=== PATIENT | male | born 1960 | race Caucasian/White ===

== ENCOUNTER → 2016-11-04 | Outpatient (CLI) | payer OTHER ==
[2016-11-04 12:27] LABS: ALT 37 U/L (21-72); AST 18 U/L (17-59); Alkaline Phosphatase 107 U/L (38-126); Anion Gap 11 mmol/L; Blood Urea Nitrogen 17 mg/dL (9-20); Calcium 9.6 mg/dL (8.4-10.2); Carbon Dioxide 27 mmol/L (22-30); Chloride 104 mmol/L (98-107); Glucose 101 mg/dL (74-99); Magnesium 1.9 mg/dL (1.6-2.3); Non-African American GFR(MDRD) >60 (>60 ml/min/1.73 sqM); Phosphorous 3.2 mg/dL (2.5-4.5); Potassium 4.2 mmol/L (3.5-5.1); Sodium 142 mmol/L (137-145); Total Bilirubin 0.4 mg/dL (0.2-1.3); Total Protein 7.1 g/dL (6.3-8.2); Uric Acid 6.6 mg/dL (3.5-8.5)
[2016-11-04 12:41] LABS: Appearance,Urine Cloudy (Clear); Bilirubin,Urine Negative (Negative); Glucose,Urine (UA) Negative (Negative); Ketones,Urine Negative (Negative); Leukocyte Esterase,Urine Negative (Negative); Mucus,Urine Rare /hpf; Nitrite,Urine Negative (Negative); Particle Count 3047; Protein,Urine Trace (Negative); RBC,Urine 51 /hpf (0-5); Specific Gravity,Urine 1.015 (1.001-1.035); Squamous Epithelial Cell,Urine <1 /hpf (0-4); UA Billing (MACRO vs. MICRO) MICRO; Urobilinogen,Urine <2.0 mg/dL (<2.0)
[2016-11-05 10:26] LABS: Mis test requested (Non-blood) TP Urine Random
== END | disposition home or self-care (01) ==
LOC: LABWHC1 11:34
PROVIDERS: ATTEND Internal Medicine Nephrology
DX: M32.9 Systemic lupus erythematosus, unspecified (principal); E21.3 Hyperparathyroidism, unspecified; E55.9 Vitamin D deficiency, unspecified; M10.9 Gout, unspecified
CPT/HCPCS: 36415; 80053; 81001; 82306; 83735; 83970; 84100; 84156; 84550; 87086

== ENCOUNTER → 2016-12-04 | Outpatient (CLI) | payer OTHER ==
[2016-12-04 12:04] LABS: ALT 24 U/L (21-72); AST 17 U/L (17-59); Alkaline Phosphatase 88 U/L (38-126); Anion Gap 10 mmol/L; Blood Urea Nitrogen 18 mg/dL (9-20); Calcium 9.6 mg/dL (8.4-10.2); Carbon Dioxide 29 mmol/L (22-30); Chloride 103 mmol/L (98-107); Glucose 168 mg/dL (74-99); Magnesium 1.8 mg/dL (1.6-2.3); Non-African American GFR(MDRD) >60 (>60 ml/min/1.73 sqM); Phosphorous 3.2 mg/dL (2.5-4.5); Potassium 4.4 mmol/L (3.5-5.1); Sodium 142 mmol/L (137-145); Total Bilirubin 0.7 mg/dL (0.2-1.3); Total Protein 6.8 g/dL (6.3-8.2)
[2016-12-04 12:38] LABS: Appearance,Urine Clear (Clear); Bilirubin,Urine Negative (Negative); Glucose,Urine (UA) Negative (Negative); Ketones,Urine Negative (Negative); Leukocyte Esterase,Urine Negative (Negative); Mucus,Urine Rare /hpf; Nitrite,Urine Negative (Negative); Particle Count 887; Protein,Urine Negative (Negative); RBC,Urine 33 /hpf (0-5); Specific Gravity,Urine 1.008 (1.001-1.035); UA Billing (MACRO vs. MICRO) MICRO; Urobilinogen,Urine <2.0 mg/dL (<2.0); WBC,Urine 1 /hpf (0-5)
[2016-12-04 13:14] LABS: Creatinine,Urine Random 43.8 mg/dL
== END | disposition home or self-care (01) ==
LOC: LABWHC1 11:12
PROVIDERS: ATTEND Internal Medicine Nephrology
DX: M32.9 Systemic lupus erythematosus, unspecified (principal); N39.0 Urinary tract infection, site not specified; R80.9 Proteinuria, unspecified; E21.3 Hyperparathyroidism, unspecified; E55.9 Vitamin D deficiency, unspecified; M10.9 Gout, unspecified
CPT/HCPCS: 36415; 80053; 81001; 82306; 82570; 83735; 83970; 84100; 84156; 84550

== ENCOUNTER → 2017-01-04 | Outpatient (CLI) | payer OTHER ==
[2017-01-04 13:20] LABS: CH 31.3; CHCM 32.3; HCT 38.4 % (39.0-53.0); HDW 2.92; HGB 12.5 gm/dL (13.0-17.5); MCH 31.8 pg (25.0-35.0); MCHC 32.6 g/dL (31.0-37.0); MCV 97.5 fL (80.0-100.0); Mean Platelet Volume 6.9; RBC 3.93 m/uL (4.30-5.90); RDW 14.4 % (11.5-15.5); WBC 15.8 k/uL (3.8-10.6)
[2017-01-04 13:24] LABS: Appearance,Urine Clear (Clear); Bacteria,Urine Rare /hpf; Bilirubin,Urine Negative (Negative); Glucose,Urine (UA) Negative (Negative); Ketones,Urine Negative (Negative); Leukocyte Esterase,Urine Negative (Negative); Mucus,Urine Rare /hpf; Nitrite,Urine Negative (Negative); PH, Urine 5.5 (5.0-8.0); Particle Count 1424; Protein,Urine Negative (Negative); RBC,Urine 63 /hpf (0-5); UA Billing (MACRO vs. MICRO) MICRO; Urobilinogen,Urine <2.0 mg/dL (<2.0); WBC,Urine 1 /hpf (0-5)
[2017-01-04 13:34] LABS: ALT 29 U/L (21-72); AST 20 U/L (17-59); Alkaline Phosphatase 105 U/L (38-126); Anion Gap 10 mmol/L; Blood Urea Nitrogen 18 mg/dL (9-20); Calcium 9.8 mg/dL (8.4-10.2); Carbon Dioxide 29 mmol/L (22-30); Chloride 102 mmol/L (98-107); Glucose 110 mg/dL (74-99); Non-African American GFR(MDRD) >60 (>60 ml/min/1.73 sqM); Potassium 4.4 mmol/L (3.5-5.1); Sodium 141 mmol/L (137-145); Total Bilirubin 0.4 mg/dL (0.2-1.3); Total Protein 7.2 g/dL (6.3-8.2)
[2017-01-04 14:21] LABS: Creatinine,Urine Random 68.3 mg/dL
== END | disposition home or self-care (01) ==
LOC: LABWHC1 12:21
PROVIDERS: ATTEND Internal Medicine
DX: M32.9 Systemic lupus erythematosus, unspecified (principal); N39.0 Urinary tract infection, site not specified; D64.9 Anemia, unspecified; R80.9 Proteinuria, unspecified
CPT/HCPCS: 36415; 80053; 81001; 82570; 84156; 85027

== ENCOUNTER → 2017-02-05 | Outpatient (CLI) | payer OTHER ==
[2017-02-05 09:55] LABS: Basophils % (A) 0 %; CH 30.8; CHCM 32.2; Eosinophils # (A) 0.3 k/uL (0-0.7); Eosinophils % (A) 3 %; HGB 12.2 gm/dL (13.0-17.5); Luc % (Auto) 1; Lymphocytes # (A) 2.2 k/uL (1.0-4.8); Lymphocytes % (A) 25 %; MCH 30.2 pg (25.0-35.0); MCHC 31.4 g/dL (31.0-37.0); MCV 96.2 fL (80.0-100.0); Mean Platelet Volume 7.3; Monocytes # (A) 0.4 k/uL (0-1.0); Monocytes % (A) 5 %; Neutrophils # (A) 5.9 k/uL (1.3-7.7); Neutrophils % (A) 66 %; RBC 4.05 m/uL (4.30-5.90); RDW 13.5 % (11.5-15.5); WBC 8.8 k/uL (3.8-10.6)
[2017-02-05 10:16] LABS: Appearance,Urine Clear (Clear); Bacteria,Urine Rare /hpf; Bilirubin,Urine Negative (Negative); Glucose,Urine (UA) Negative (Negative); Ketones,Urine Negative (Negative); Leukocyte Esterase,Urine Negative (Negative); Nitrite,Urine Negative (Negative); PH, Urine 5.5 (5.0-8.0); Particle Count 1400; Protein,Urine Negative (Negative); RBC,Urine 34 /hpf (0-5); Specific Gravity,Urine 1.011 (1.001-1.035); UA Billing (MACRO vs. MICRO) MICRO; Urobilinogen,Urine <2.0 mg/dL (<2.0); WBC,Urine 1 /hpf (0-5)
[2017-02-05 10:31] LABS: ALT 22 U/L (21-72); AST 17 U/L (17-59); Alkaline Phosphatase 118 U/L (38-126); Anion Gap 8 mmol/L; Blood Urea Nitrogen 15 mg/dL (9-20); Calcium 9.1 mg/dL (8.4-10.2); Carbon Dioxide 31 mmol/L (22-30); Chloride 104 mmol/L (98-107); Glucose 112 mg/dL (74-99); Magnesium 1.9 mg/dL (1.6-2.3); Non-African American GFR(MDRD) >60 (>60 ml/min/1.73 sqM); Phosphorous 3.9 mg/dL (2.5-4.5); Potassium 3.7 mmol/L (3.5-5.1); Sodium 143 mmol/L (137-145); Total Bilirubin 0.3 mg/dL (0.2-1.3); Total Protein 6.6 g/dL (6.3-8.2)
[2017-02-05 11:36] LABS: Creatinine,Urine Random 83.9 mg/dL
== END | disposition home or self-care (01) ==
LOC: LABWHC1 09:06
PROVIDERS: ATTEND Internal Medicine
DX: M32.9 Systemic lupus erythematosus, unspecified (principal); N39.0 Urinary tract infection, site not specified; D64.9 Anemia, unspecified; R80.9 Proteinuria, unspecified; E21.3 Hyperparathyroidism, unspecified; E55.9 Vitamin D deficiency, unspecified; M10.9 Gout, unspecified
CPT/HCPCS: 36415; 80053; 81001; 82306; 82570; 83735; 83970; 84100; 84156; 84550; 85025

== ENCOUNTER → 2017-03-04 | Outpatient (CLI) | payer OTHER ==
[2017-03-04 12:00] LABS: CH 30.5; CHCM 32.3; HDW 2.78; HGB 13.3 gm/dL (13.0-17.5); MCHC 31.6 g/dL (31.0-37.0); MCV 94.9 fL (80.0-100.0); Mean Platelet Volume 7.5; RBC 4.42 m/uL (4.30-5.90); RDW 13.4 % (11.5-15.5); WBC 10.4 k/uL (3.8-10.6)
[2017-03-04 12:05] LABS: ALT 30 U/L (21-72); AST 19 U/L (17-59); Alkaline Phosphatase 127 U/L (38-126); Anion Gap 6 mmol/L; Blood Urea Nitrogen 13 mg/dL (9-20); Calcium 9.4 mg/dL (8.4-10.2); Carbon Dioxide 36 mmol/L (22-30); Chloride 104 mmol/L (98-107); Glucose 133 mg/dL (74-99); Iron 89 ug/dL (49-181); Magnesium 2.2 mg/dL (1.6-2.3); Non-African American GFR(MDRD) >60 (>60 ml/min/1.73 sqM); Potassium 3.7 mmol/L (3.5-5.1); Sodium 146 mmol/L (137-145); Total Bilirubin 0.3 mg/dL (0.2-1.3); Total Protein 6.5 g/dL (6.3-8.2); Uric Acid 7.1 mg/dL (3.5-8.5)
[2017-03-04 12:14] LABS: % Iron Saturation 32.7 % (20-50); Total Iron Binding Capacity 272 ug/dL (261-462)
[2017-03-04 12:26] LABS: Appearance,Urine Clear (Clear); Bilirubin,Urine Negative (Negative); Glucose,Urine (UA) Negative (Negative); Ketones,Urine Negative (Negative); Leukocyte Esterase,Urine Negative (Negative); Nitrite,Urine Negative (Negative); Particle Count 1271; Protein,Urine Trace (Negative); RBC,Urine 27 /hpf (0-5); Specific Gravity,Urine 1.012 (1.001-1.035); UA Billing (MACRO vs. MICRO) MICRO; Urobilinogen,Urine <2.0 mg/dL (<2.0); WBC,Urine 1 /hpf (0-5)
[2017-03-04 13:40] LABS: Creatinine,Urine Random 95.8 mg/dL
== END | disposition home or self-care (01) ==
LOC: LABWHC1 11:28
PROVIDERS: ATTEND Internal Medicine
DX: M32.9 Systemic lupus erythematosus, unspecified (principal); D64.9 Anemia, unspecified; N39.0 Urinary tract infection, site not specified; R80.9 Proteinuria, unspecified; E21.3 Hyperparathyroidism, unspecified; E55.9 Vitamin D deficiency, unspecified; M10.9 Gout, unspecified
CPT/HCPCS: 36415; 80053; 81001; 82306; 82570; 82728; 83540; 83550; 83735; 83970; 84100; 84156; 84550; 85027

== ENCOUNTER → 2017-04-23 | Outpatient (CLI) | payer OTHER ==
--- NOTE | 2017-04-23 12:14 | XR ---
EXAMINATION TYPE: XR foot complete bilateral , 6 VIEWS DATE OF EXAM ORDERED: 04/23/2017 HISTORY: M79.672 l foot pain M79.671 R foot pain. COMPARISON: None. FINDINGS: There are mild degenerative changes in the first MTP joint bilaterally. No fracture or dis location is seen. There is a minimal Achilles spur on the right. IMPRESSION: 1. NO ACUTE OSSEOUS LESION. 2. MILD DEGENERATIVE CHANGE.
== END | disposition home or self-care (01) ==
LOC: RADXRMAIN 11:49
PROVIDERS: ATTEND Family Medicine
DX: M25.871 Other specified joint disorders, right ankle and foot (principal); M25.872 Other specified joint disorders, left ankle and foot; M79.672 Pain in left foot; M79.671 Pain in right foot

== ENCOUNTER → 2017-04-23 | Outpatient (CLI) | payer OTHER ==
[2017-04-23 13:27] LABS: Appearance,Urine Clear (Clear); Bilirubin,Urine Negative (Negative); CH 30.1; CHCM 33.1; Glucose,Urine (UA) Negative (Negative); HCT 38.3 % (39.0-53.0); HDW 2.75; HGB 12.9 gm/dL (13.0-17.5); Ketones,Urine Negative (Negative); Leukocyte Esterase,Urine Negative (Negative); MCH 30.7 pg (25.0-35.0); MCHC 33.6 g/dL (31.0-37.0); MCV 91.2 fL (80.0-100.0); Mean Platelet Volume 7.4; Mucus,Urine Rare /hpf; Nitrite,Urine Negative (Negative); PH, Urine 5.5 (5.0-8.0); Particle Count 2006; Protein,Urine Trace (Negative); RBC,Urine 57 /hpf (0-5); RDW 13.5 % (11.5-15.5); Specific Gravity,Urine 1.013 (1.001-1.035); UA Billing (MACRO vs. MICRO) MICRO; Urobilinogen,Urine <2.0 mg/dL (<2.0); WBC 9.8 k/uL (3.8-10.6); WBC,Urine 1 /hpf (0-5)
[2017-04-23 13:42] LABS: ALT 29 U/L (21-72); AST 21 U/L (17-59); Alkaline Phosphatase 138 U/L (38-126); Anion Gap 9 mmol/L; Blood Urea Nitrogen 11 mg/dL (9-20); Carbon Dioxide 29 mmol/L (22-30); Chloride 105 mmol/L (98-107); Glucose 128 mg/dL (74-99); Iron 119 ug/dL (49-181); Magnesium 2.1 mg/dL (1.6-2.3); Non-African American GFR(MDRD) >60 (>60 ml/min/1.73 sqM); Phosphorous 2.9 mg/dL (2.5-4.5); Potassium 3.4 mmol/L (3.5-5.1); Sodium 143 mmol/L (137-145); Total Bilirubin 0.4 mg/dL (0.2-1.3); Total Protein 6.3 g/dL (6.3-8.2)
[2017-04-23 13:54] LABS: % Iron Saturation 46.1 % (20-50); Total Iron Binding Capacity 258 ug/dL (261-462)
== END ==
LOC: LABWHC1 12:16
PROVIDERS: ATTEND Internal Medicine
DX: M32.9 Systemic lupus erythematosus, unspecified (principal); D64.9 Anemia, unspecified; N39.0 Urinary tract infection, site not specified; R80.9 Proteinuria, unspecified; E21.3 Hyperparathyroidism, unspecified; E55.9 Vitamin D deficiency, unspecified
CPT/HCPCS: 36415; 80053; 81001; 82306; 82570; 82728; 83540; 83550; 83735; 83970; 84100; 84156; 85027

== ENCOUNTER → 2017-07-10 | Outpatient (CLI) | payer OTHER ==
[2017-07-10 12:27] LABS: HCT 47.4 % (39.0-53.0); HDW 2.69; HGB 15.1 gm/dL (13.0-17.5); MCH 30.1 pg (25.0-35.0); MCHC 31.9 g/dL (31.0-37.0); MCV 94.5 fL (80.0-100.0); Mean Platelet Volume 7.9; RBC 5.02 m/uL (4.30-5.90); RDW 14.5 % (11.5-15.5)
[2017-07-10 12:45] LABS: Appearance,Urine Clear (Clear); Bacteria,Urine Rare /hpf; Bilirubin,Urine Negative (Negative); Glucose,Urine (UA) Negative (Negative); Ketones,Urine Negative (Negative); Leukocyte Esterase,Urine Negative (Negative); Mucus,Urine Rare /hpf; Nitrite,Urine Negative (Negative); Particle Count 1159; Protein,Urine Negative (Negative); RBC,Urine 4 /hpf (0-5); Specific Gravity,Urine 1.013 (1.001-1.035); Squamous Epithelial Cell,Urine <1 /hpf (0-4); UA Billing (MACRO vs. MICRO) MICRO; Urobilinogen,Urine <2.0 mg/dL (<2.0); WBC,Urine 1 /hpf (0-5)
[2017-07-10 12:52] LABS: ALT 31 U/L (21-72); AST 18 U/L (17-59); Alkaline Phosphatase 159 U/L (38-126); Anion Gap 10 mmol/L; Blood Urea Nitrogen 13 mg/dL (9-20); Calcium 9.7 mg/dL (8.4-10.2); Carbon Dioxide 30 mmol/L (22-30); Chloride 105 mmol/L (98-107); Glucose 127 mg/dL (74-99); Magnesium 2.2 mg/dL (1.6-2.3); Non-African American GFR(MDRD) >60 (>60 ml/min/1.73 sqM); Phosphorous 3.6 mg/dL (2.5-4.5); Potassium 4.6 mmol/L (3.5-5.1); Sodium 145 mmol/L (137-145); Total Bilirubin 0.3 mg/dL (0.2-1.3); Total Protein 7.1 g/dL (6.3-8.2); Uric Acid 6.5 mg/dL (3.5-8.5)
== END | disposition home or self-care (01) ==
LOC: LABWHC1 11:49
PROVIDERS: ATTEND Internal Medicine
DX: E55.9 Vitamin D deficiency, unspecified (principal); M10.9 Gout, unspecified; N39.0 Urinary tract infection, site not specified; E21.3 Hyperparathyroidism, unspecified; R80.9 Proteinuria, unspecified; D64.9 Anemia, unspecified; M32.9 Systemic lupus erythematosus, unspecified
CPT/HCPCS: 36415; 80053; 81001; 82306; 82570; 83735; 83970; 84100; 84156; 84550; 85027

== ENCOUNTER → 2017-08-06 | Outpatient (CLI) | payer OTHER ==
[2017-08-06 13:38] LABS: CH 29.4; CHCM 32.3; HCT 42.2 % (39.0-53.0); HDW 2.51; HGB 14.3 gm/dL (13.0-17.5); MCH 31.1 pg (25.0-35.0); MCV 91.5 fL (80.0-100.0); RBC 4.61 m/uL (4.30-5.90); WBC 10.1 k/uL (3.8-10.6)
[2017-08-06 13:55] LABS: Appearance,Urine Clear (Clear); Bacteria,Urine Rare /hpf; Bilirubin,Urine Negative (Negative); Glucose,Urine (UA) Negative (Negative); Ketones,Urine Negative (Negative); Leukocyte Esterase,Urine Negative (Negative); Nitrite,Urine Negative (Negative); Particle Count 837; Protein,Urine Negative (Negative); RBC,Urine 17 /hpf (0-5); Specific Gravity,Urine 1.014 (1.001-1.035); Squamous Epithelial Cell,Urine <1 /hpf (0-4); UA Billing (MACRO vs. MICRO) MICRO; Urobilinogen,Urine <2.0 mg/dL (<2.0); WBC,Urine <1 /hpf (0-5)
[2017-08-06 13:59] LABS: ALT 33 U/L (21-72); AST 18 U/L (17-59); Alkaline Phosphatase 137 U/L (38-126); Anion Gap 8 mmol/L; Blood Urea Nitrogen 11 mg/dL (9-20); Calcium 9.5 mg/dL (8.4-10.2); Carbon Dioxide 29 mmol/L (22-30); Chloride 107 mmol/L (98-107); Glucose 112 mg/dL (74-99); Non-African American GFR(MDRD) >60 (>60 ml/min/1.73 sqM); Phosphorus 3.8 mg/dL (2.5-4.5); Potassium 4.1 mmol/L (3.5-5.1); Sodium 144 mmol/L (137-145); Total Bilirubin 0.3 mg/dL (0.2-1.3); Total Protein 6.8 g/dL (6.3-8.2); Uric Acid 6.8 mg/dL (3.5-8.5)
== END | disposition home or self-care (01) ==
LOC: LABWHC1 13:07
PROVIDERS: ATTEND Internal Medicine
DX: E55.9 Vitamin D deficiency, unspecified (principal); M10.9 Gout, unspecified; E21.3 Hyperparathyroidism, unspecified; R80.9 Proteinuria, unspecified; N39.0 Urinary tract infection, site not specified; D64.9 Anemia, unspecified; M32.9 Systemic lupus erythematosus, unspecified
CPT/HCPCS: 36415; 80053; 81001; 82306; 82570; 83735; 83970; 84100; 84156; 84550; 85027

== ENCOUNTER → 2017-09-30 | Outpatient (CLI) | payer OTHER ==
[2017-09-30 11:56] LABS: HCT 48.2 % (39.0-53.0); MCH 29.7 pg (25.0-35.0); MCV 95.6 fL (80.0-100.0); Mean Platelet Volume 7.7; Platelet Count 215 k/uL (150-450); RBC 5.04 m/uL (4.30-5.90); RDW 15.4 % (11.5-15.5); WBC 13.4 k/uL (3.8-10.6)
[2017-09-30 12:06] LABS: Anion Gap 10 mmol/L; Blood Urea Nitrogen 12 mg/dL (9-20); Carbon Dioxide 31 mmol/L (22-30); Chloride 104 mmol/L (98-107); Potassium 5.1 mmol/L (3.5-5.1); Sodium 145 mmol/L (137-145)
== END | disposition home or self-care (01) ==
LOC: LABPAT 11:24
PROVIDERS: ATTEND Internal Medicine Interventional Cardiology
DX: Z01.812 Encounter for preprocedural laboratory examination (principal); I25.10 Atherosclerotic heart disease of native coronary artery without angina pectoris
CPT/HCPCS: 80051; 82565; 84520; 85027

== ENCOUNTER 2017-10-03 06:02 | Day surgery (SDC) | payer OTHER ==
[2017-10-02 16:31] VITALS: BMI 31.3
[2017-10-03] MEDS ORDERED: ALPRAZolam 0.25 MG TAB PO PRN (06:31)
[2017-10-03] MEDS ORDERED: ALPRAZolam 0.5 MG TAB PO PRN (06:31)
[2017-10-03] MEDS ORDERED: NITROGLYCERIN SL TABS 0.4 MG TAB SUBLINGUAL PRN (06:31)
[2017-10-03] MEDS ORDERED: ATORVASTATIN 80 MG TAB PO STA (06:31)
[2017-10-03] MEDS ORDERED: SODIUM CHLORIDE 0.9% 1,000 ML in EMPTY BAG 1 BAG IV ONE (06:31)
[2017-10-03] MEDS ORDERED: ASPIRIN 325 MG TAB PO STA (06:31)
[2017-10-03] MEDS ORDERED: SODIUM CHLORIDE 0.9% 1,000 ML IV ONE (07:14)
[2017-10-03] MEDS ORDERED: methylPREDNISolone SOD SUCCI 125 MG/2 ML VIAL IV ONE (07:42)
[2017-10-03] MEDS ORDERED: diphenhydrAMINE 50 MG/ML 1 ML VIAL IVP ONE (07:42)
[2017-10-03] MEDS ORDERED: fentaNYL (PF) 50 MCG/ML 2 ML AMP IV ONE (07:42)
[2017-10-03] MEDS ORDERED: LIDOCAINE 2% INJ 20 MG/ML SQ ONE (07:45)
[2017-10-03] MEDS: VERAPAMIL SYRINGE (5 MG/10 ML) INTRAARTER ONE ×2 (07:47→08:03)
[2017-10-03] MEDS ORDERED: MIDAZOLAM 2 MG/2 ML VIAL IVP ONE (07:47)
[2017-10-03] MEDS ORDERED: HEPARIN SODIUM 1,000 UN/ML (10ML VL) IV ONE (08:00)
[2017-10-03 08:05] VITALS: PULSE 66; RESP 20; TEMP 98
[2017-10-03] MEDS ORDERED: NITROGLYCERIN 1000MCG/10ML SYRINGE INTRACORON ONE (08:12)
[2017-10-03] MEDS ORDERED: ADENOSINE 90 MG in SODIUM CHLORIDE 0.9% 60 ML IVP ONE (08:13)
[2017-10-03] MEDS ORDERED: IOHEXOL 350 MG/ML 125ML BOTTLE INJ ONE (08:18)
[2017-10-03] MEDS ORDERED: RX INFO: IV CONTRAST WAS GIVEN 1 EACH MISC MISCELLANE PRN (08:26)
[2017-10-03] MEDS ORDERED: MORPHINE SULFATE IR 15 MG TABLET PO PRN (08:27)
[2017-10-03] MEDS ORDERED: ALBUTEROL NEBULIZED 2.5 MG/3 ML INHALATION PRN (08:27)
[2017-10-03] MEDS ORDERED: SODIUM CHLORIDE 0.9% 1,000 ML IV SCH (08:30)
[2017-10-03] MEDS ORDERED: THEOPHYLLINE ANHYDROUS 400 MG PO SCH (08:30)
[2017-10-03] MEDS ORDERED: METOPROLOL TARTRATE 25 MG TAB PO SCH (09:00)
[2017-10-03] MEDS ORDERED: FOLIC PO SCH (09:00)
[2017-10-03] MEDS ORDERED: FUROSEMIDE 20 MG TAB PO SCH (09:00)
[2017-10-03] MEDS ORDERED: MYCOPHENOLATE MOFETIL 500 MG TAB PO SCH (09:00)
[2017-10-03] MEDS ORDERED: PHENYTOIN SODIUM EXTENDED 100 MG CAP PO SCH (09:00)
[2017-10-03] MEDS ORDERED: DIAZEPAM 10 MG PO SCH (09:00)
[2017-10-03] MEDS ORDERED: LORATADINE 10 MG TAB PO SCH (09:00)
[2017-10-03] MEDS ORDERED: NON-FORMULARY DRUG (Omeprazole [Omeprazole] 20 MG) PO SCH (09:00)
[2017-10-03] MEDS ORDERED: FLUNISOLIDE INHALATION SCH (09:00)
[2017-10-03] MEDS ORDERED: FLUTICASONE 50MCG/SPRAY NASAL 16GM EA NOSTRIL SCH (09:00)
[2017-10-03] MEDS ORDERED: IRON PO SCH (09:00)
[2017-10-03] MEDS ORDERED: AMLODIPINE BES PO SCH (09:00)
[2017-10-03] MEDS ORDERED: OLMESARTAN MED PO SCH (09:00)
[2017-10-03] MEDS ORDERED: CLOPIDOGREL 75 MG TAB PO SCH (09:00)
[2017-10-03] MEDS ORDERED: predniSONE 5 MG TAB PO SCH (09:00)
[2017-10-03] MEDS ORDERED: ASPIRIN 325 MG TAB PO SCH (09:00)
[2017-10-03] MEDS ORDERED: MULTIVIT MINS PO SCH (09:00)
[2017-10-03] MEDS ORDERED: LYCOP PO SCH (09:00)
[2017-10-03] MEDS ORDERED: MAGNESIUM OXIDE 400 MG TAB PO SCH (09:00)
[2017-10-03] MEDS ORDERED: PARoxetine 20 MG TAB PO SCH (09:00)
--- NOTE | 2017-10-03 09:31 | CC ---
CARDIAC CATHETERIZATION REPORT Mr. Fajardo is a 57-year-old male with known history of coronary artery disease, history of hypertension, hyperlipidemia and chronic tobacco use, who in 2015 sustained an acute inferior myocardial infarction, underwent stenting of the right coronary artery. He has been followed by Dr. Julianne Small and recently he has been complaining of persistent recurrent episode of chest discomfort. In view of that, recommendation was made regarding cardiac catheterization. He was evaluated by Dr. Small and the procedure was done for him. The procedures, risks and complication were discussed with the patient who is in full understanding and agreement. PROCEDURE: Patient was brought to the lab support service tech in a fasting semi-sedated state after receiving fentanyl and Benadryl and achieving moderate conscious sedated state. Using Xylocaine anesthesia in the Seldinger technique a 6-Fijian sheath was introduced in the right radial artery. Selective right and left coronary angiography was performed using 5- Fijian 3.5 bend right and left Rossy catheter. Multiple views of the coronary artery including hemiaxial views were obtained. Following that, a 5-Fijian tight pigtail catheter introduced in the left ventricle and left ventriculogram in 30-degree REYES view was obtained. Following that, catheter were removed and a 6-Fijian 3.5 FL guiding catheter introduced in the system. After cannulating the left main, a Doppler flow wire was introduced in the LAD, positioned distally. Subsequently, iFR and FFR were calculated after infusing IV adenosine per protocol. Following that, the catheter and sheaths were removed. Hemostasis was obtained with deployment of a TR band. There was no immediate complication. Patient is returned to his room in stable condition. Of note, the patient had received 5000 units of intravenous heparin as well as intra- arterial verapamil. FINDING: LEFT MAIN: This is a short size vessel bifurcating left circumflex and left anterior descending artery. Left main coronary artery has no evidence of high-grade stenosis. LEFT ANTERIOR DESCENDING ARTERY: This is a large-sized vessel reaching towards the apex with a wraparound apex segment giving rise to 2 small proximal diagonal branch. After the takeoff of the second diagonal branch, there is a tubular lesion with an area of eccentric lesion of about 50% to 60%. The rest of the vessel has no high-grade stenosis. LEFT CIRCUMFLEX: This is a large nondominant vessel giving rise to a large obtuse marginal branch. The proximal left circumflex has mild intimal disease of 20% to 30% without any evidence of high-grade stenosis. RIGHT CORONARY ARTERY: This is a large dominant vessel bifurcating distally PDA and posterolateral branches. The stented segment in the mid RCA is patent. There is diffuse intimal disease in the distal vessel up to area of stenosis up to 40% to 50%. The rest of the vessel has no high-grade stenosis. LEFT VENTRICULOGRAM: Left ventriculogram is performed in 30-degree REYES view and revealed inferior wall hypokinesis to akinesis. The ejection fraction is estimated at 45%. There was no significant mitral regurgitation. HEMODYNAMICS: There was no gradient across the aortic valve. The left ventricle end- diastolic pressure was 10 mmHg. The iFR was 91% and FFR was 84%. CONCLUSION: 1. No evidence of restenosis in the right coronary artery stent with mild to moderate diffuse intimal disease in the proximal and distal segment. 2. Mild disease in the proximal left circumflex. 3. Moderate lesion in the proximal left anterior descending artery. 4. Mildly impaired left ventricular systolic function. 5. Non-hemodynamic significant lesion in the left anterior descending artery by iFR and FFR. RECOMMENDATION: The patient will be continued on the present medical therapy. Aggressive coronary risk modification will be continued. The importance of smoking cessation was discussed with the patient and those findings and recommendation were discussed with the patient and his family and are in full understanding and agreement. Duration of procedure is 33 minutes. MMANNE MARIEL / RYANN: [id number] /
--- NOTE | 2017-10-03 09:37 | LTR ---
October 03, 2017 Re: Power Fajardo Dear Dr. Teran: I had the opportunity to perform cardiac catheterization on Mr. Fajardo at [facility] on the 03 of October and a full copy of the procedure note will be forwarded to you. In brief, he was found to have no evidence of restenosis in the stented segment of the right coronary artery with [id number] disease in the distal segment of the vessel. At the same time, he had a moderate lesion in the proximal LAD and because of his persistent symptoms, I proceeded to measure fractional flow reserve in that vessel and it showed a non-hemodynamic significant lesion and based on those findings, I recommend to continue with medical therapy with aggressive coronary risk modification has been initiated. Thank you again for allowing me the opportunity to participate in his care. Please feel free to call for any questions. Sincerely yours, MD DURGA Lynch / KARLI: [phone] /
[2017-10-03] MEDS ORDERED: CALCIUM ACETATE 667 MG CAP PO SCH (12:30)
[2017-10-03 14:02] VITALS: BP 120/64
[2017-10-03] MEDS ORDERED: ATORVASTATIN 80 MG TAB PO SCH (21:00)
== END 2017-10-03 13:30 | disposition home or self-care (01) ==
LOC: CATHCVL 06:02
PROVIDERS: ATTEND Internal Medicine Interventional Cardiology
DX: I25.110 Atherosclerotic heart disease of native coronary artery with unstable angina pectoris (principal); I10 Essential (primary) hypertension; F17.210 Nicotine dependence, cigarettes, uncomplicated; E78.5 Hyperlipidemia, unspecified; E78.00 Pure hypercholesterolemia, unspecified; J44.9 Chronic obstructive pulmonary disease, unspecified; I25.2 Old myocardial infarction; Z79.02 Long term (current) use of antithrombotics/antiplatelets; Z79.51 Long term (current) use of inhaled steroids; Z79.52 Long term (current) use of systemic steroids; Z79.899 Other long term (current) drug therapy; Z88.0 Allergy status to penicillin; Z88.8 Allergy status to other drugs, medicaments and biological substances; Z91.041 Radiographic dye allergy status
CPT/HCPCS: 93571; 93458; C1887; C1894; C1769; J2001; J2250; J1200; J2930; J3010; J1644; J0153; Q9967

== ENCOUNTER → 2017-10-16 | Outpatient (CLI) | payer OTHER ==
[2017-10-16 11:17] LABS: HCT 46.9 % (39.0-53.0); HGB 15.1 gm/dL (13.0-17.5); MCH 30.3 pg (25.0-35.0); MCHC 32.3 g/dL (31.0-37.0); MCV 93.9 fL (80.0-100.0); Mean Platelet Volume 7.1; Platelet Count 243 k/uL (150-450); RDW 13.6 % (11.5-15.5); WBC 12.6 k/uL (3.8-10.6)
[2017-10-16 11:21] LABS: Appearance,Urine Clear (Clear); Bilirubin,Urine Negative (Negative); Blood,Urine Small (Negative); Color,Urine Yellow; Glucose,Urine (UA) Negative (Negative); Hyaline Casts,Urine 6 /lpf (0-2); Ketones,Urine Negative (Negative); Leukocyte Esterase,Urine Negative (Negative); Mucus,Urine Rare /hpf; Nitrite,Urine Negative (Negative); PH, Urine 5.5 (5.0-8.0); Protein,Urine Negative (Negative); RBC,Urine 5 /hpf (0-5); Specific Gravity,Urine 1.009 (1.001-1.035); Urobilinogen,Urine <2.0 mg/dL (<2.0); WBC,Urine 1 /hpf (0-5)
[2017-10-16 11:26] LABS: ALT 38 U/L (21-72); AST 20 U/L (17-59); Albumin 4.2 g/dL (3.5-5.0); Alkaline Phosphatase 171 U/L (38-126); Anion Gap 12 mmol/L; Blood Urea Nitrogen 16 mg/dL (9-20); Calcium 9.9 mg/dL (8.4-10.2); Carbon Dioxide 28 mmol/L (22-30); Chloride 105 mmol/L (98-107); Glucose 122 mg/dL (74-99); Magnesium 2.1 mg/dL (1.6-2.3); Phosphorus 3.1 mg/dL (2.5-4.5); Potassium 4.2 mmol/L (3.5-5.1); Sodium 145 mmol/L (137-145); Total Bilirubin 0.3 mg/dL (0.2-1.3); Total Protein 6.8 g/dL (6.3-8.2); Uric Acid 6.6 mg/dL (3.5-8.5)
[2017-10-16 13:02] LABS: Creatinine,Urine Random 57.9 mg/dL
[2017-10-16 17:13] LABS: Parathyroid Hormone Intact 33.1 pg/mL (14.0-72.0)
== END | disposition home or self-care (01) ==
LOC: LABWHC1 10:47
PROVIDERS: ATTEND Nurse Practitioner Family
DX: M32.9 Systemic lupus erythematosus, unspecified (principal); R80.9 Proteinuria, unspecified; E83.39 Other disorders of phosphorus metabolism; E55.9 Vitamin D deficiency, unspecified; M10.9 Gout, unspecified
CPT/HCPCS: 36415; 80053; 81001; 82306; 82570; 83735; 83970; 84100; 84156; 84550; 85027

== ENCOUNTER → 2017-11-04 | Outpatient (CLI) | payer OTHER ==
[2017-11-04 15:45] LABS: Anion Gap 12 mmol/L; Blood Urea Nitrogen 15 mg/dL (9-20); Calcium 9.4 mg/dL (8.4-10.2); Carbon Dioxide 31 mmol/L (22-30); Chloride 102 mmol/L (98-107); Glucose 75 mg/dL (74-99); Magnesium 2.1 mg/dL (1.6-2.3); Potassium 4.1 mmol/L (3.5-5.1); Sodium 145 mmol/L (137-145)
== END | disposition home or self-care (01) ==
LOC: LABWHC1 14:25
PROVIDERS: ATTEND Internal Medicine
DX: M32.9 Systemic lupus erythematosus, unspecified (principal)
CPT/HCPCS: 36415; 80048; 83735

== ENCOUNTER → 2017-12-11 | Outpatient (CLI) | payer OTHER ==
[2017-12-11 11:08] LABS: Anion Gap 9 mmol/L; Blood Urea Nitrogen 10 mg/dL (9-20); Calcium 9.6 mg/dL (8.4-10.2); Carbon Dioxide 31 mmol/L (22-30); Chloride 105 mmol/L (98-107); Glucose 141 mg/dL (74-99); Magnesium 1.9 mg/dL (1.6-2.3); Potassium 3.6 mmol/L (3.5-5.1); Sodium 145 mmol/L (137-145)
== END | disposition home or self-care (01) ==
LOC: LABWHC1 09:53
PROVIDERS: ATTEND Internal Medicine
DX: M32.9 Systemic lupus erythematosus, unspecified (principal)
CPT/HCPCS: 36415; 80048; 83735

== ENCOUNTER → 2018-01-19 | Outpatient (CLI) | payer OTHER ==
[2018-01-19 11:46] LABS: HCT 48.8 % (39.0-53.0); HGB 15.6 gm/dL (13.0-17.5); MCH 29.9 pg (25.0-35.0); MCHC 32.1 g/dL (31.0-37.0); MCV 93.2 fL (80.0-100.0); Mean Platelet Volume 7.4; Platelet Count 229 k/uL (150-450); RBC 5.23 m/uL (4.30-5.90); RDW 13.3 % (11.5-15.5)
[2018-01-19 11:50] LABS: Appearance,Urine Clear (Clear); Bacteria,Urine Rare /hpf; Bilirubin,Urine Negative (Negative); Blood,Urine Trace (Negative); Color,Urine Yellow; Glucose,Urine (UA) Negative (Negative); Ketones,Urine Negative (Negative); Leukocyte Esterase,Urine Negative (Negative); Mucus,Urine Rare /hpf; Nitrite,Urine Negative (Negative); Protein,Urine Negative (Negative); RBC,Urine 1 /hpf (0-5); Specific Gravity,Urine 1.011 (1.001-1.035); Urobilinogen,Urine <2.0 mg/dL (<2.0); WBC,Urine <1 /hpf (0-5)
[2018-01-19 12:07] LABS: ALT 35 U/L (21-72); AST 27 U/L (17-59); Albumin 4.3 g/dL (3.5-5.0); Alkaline Phosphatase 152 U/L (38-126); Anion Gap 15 mmol/L; Blood Urea Nitrogen 16 mg/dL (9-20); Calcium 9.6 mg/dL (8.4-10.2); Carbon Dioxide 29 mmol/L (22-30); Chloride 101 mmol/L (98-107); Glucose 215 mg/dL (74-99); Phosphorus 2.7 mg/dL (2.5-4.5); Potassium 3.8 mmol/L (3.5-5.1); Sodium 145 mmol/L (137-145); Total Bilirubin 0.2 mg/dL (0.2-1.3); Total Protein 6.7 g/dL (6.3-8.2); Uric Acid 6.8 mg/dL (3.5-8.5)
[2018-01-19 16:27] LABS: Iron Saturation 39.43 (15.00-50.00)
[2018-01-19 16:35] LABS: Vitamin D 25 Hydroxy 17.7 ng/mL (30.0-100.0)
[2018-01-19 17:22] LABS: Parathyroid Hormone Intact 41.5 pg/mL (14.0-72.0)
== END | disposition home or self-care (01) ==
LOC: LABWHC1 11:26
PROVIDERS: ATTEND Internal Medicine
DX: M32.9 Systemic lupus erythematosus, unspecified (principal); D64.9 Anemia, unspecified; N39.0 Urinary tract infection, site not specified; E21.3 Hyperparathyroidism, unspecified; E55.9 Vitamin D deficiency, unspecified; M10.9 Gout, unspecified
CPT/HCPCS: 36415; 80053; 81001; 82306; 82728; 83540; 83550; 83735; 83970; 84100; 84550; 85027

== ENCOUNTER 2018-02-04 20:00 | Observation (INO) | payer OTHER ==
[2018-02-04] MEDS ORDERED: NITROGLYCERIN SL TABS 0.4 MG TAB SUBLINGUAL PRN (20:05)
[2018-02-04] MEDS ORDERED: SODIUM CHLORIDE 0.9% 500 ML IV STA (20:05)
[2018-02-04] MEDS ORDERED: SODIUM CHLORIDE 0.9% 1,000 ML IV STA (20:05)
--- NOTE | 2018-02-04 20:15 | ED ---
General Adult HPI - General Stated complaint: chest pain Time Seen by Provider: 02/04/18 20:05 Source: patient, EMS, RN notes reviewed, old records reviewed Mode of arrival: EMS Limitations: no limitations - History of Present Illness Initial comments: This is a 57-year-old male the ER for evaluation of chest pain. Patient is calm. Medical history: Heart disease CAD stent placement. Patient also has significant history including severe COPD on oxygen and continues to smoke. Chest pain started today and he also had a syncopal episode today. Patient states chest pain is improved at this time with nitro. He complains of shortness of breath that he always has - Related Data Home Medications Medication Instructions Recorded Confirmed Albuterol Nebulized [Ventolin 2.5 mg INHALATION QID PRN 04/11/15 10/03/17 Nebulized] Flunisolide [Aerospan] 2 puff INHALATION BID 05/21/16 10/03/17 Loratadine [Claritin] 10 mg PO DAILY 05/21/16 10/02/17 Omeprazole 20 mg PO DAILY 05/21/16 10/02/17 PARoxetine [Paxil] 20 mg PO DAILY 05/21/16 10/02/17 Phenytoin Sodium Extended 200 mg PO BID 05/21/16 10/02/17 [Dilantin] Clopidogrel Bisulfate [Clopidogrel] 75 mg PO DAILY 05/22/16 10/02/17 Multivit-Mins/Iron/Folic/Lycop 1 tab PO DAILY 07/22/16 10/02/17 [Centrum Men's Tablet] amLODIPine BES/OLMESARTAN MED 1 each PO DAILY 08/30/16 10/02/17 [Nik 5-40 mg Tablet] rOPINIRole HCL [Requip] 1 mg PO HS 08/30/16 10/03/17 Aspirin 325 mg PO DAILY 09/30/17 10/03/17 Morphine Sulfate Ir [MSIR] 15 mg PO Q8HR PRN 09/30/17 10/03/17 Furosemide [Lasix] 40 mg PO BID 10/02/17 10/03/17 Atorvastatin [Lipitor] 20 mg PO HS 10/03/17 10/03/17 Diazepam [Valium] 10 mg PO TID 10/03/17 10/03/17 Fluticasone Nasal [place] [Flonase 2 spr EA NOSTRIL DAILY 10/03/17 10/03/17 Nasal [place]] Mycophenolate Mofetil [Cellcept] 500 mg PO TID 10/03/17 10/03/17 Ranitidine HCl 150 10/03/17 Theophylline Anhydrous 400 mg PO ONCE 10/03/17 10/03/17 [Theophylline] predniSONE 5 mg PO DAILY 10/03/17 10/03/17 Previous Rx's Medication Instructions Recorded Metoprolol Tartrate [Lopressor] 25 mg PO BID #60 tab 09/18/15 Calcium Acetate [PhosLo] 667 mg PO TID-W/MEALS #90 cap 07/11/16 Magnesium Oxide [Mag-Ox] 400 mg PO DAILY #30 tablet 07/11/16 Allergies Allergy/AdvReac Type Severity Reaction Status Date / Time Penicillins Allergy Severe Swelling Verified 02/04/18 20:55 Iodinated Contrast- Oral and Allergy Swelling Verified 02/04/18 20:55 IV Dye iodine Allergy Itching, Verified 02/04/18 20:55 Hives phenobarbital AdvReac Drowsiness Verified 02/04/18 20:55 Review of Systems ROS Statement: Those systems with pertinent positive or pertinent negative responses have been documented in the HPI. ROS Other: All systems not noted in ROS Statement are negative. Past Medical History Past Medical History: Asthma, Coronary Artery Disease (CAD), Chest Pain / Angina , COPD, CVA/TIA, GERD/Reflux, Hyperlipidemia, Hypertension, Myocardial Infarction (HI), Osteoarthritis (OA), Pneumonia, Renal Disease, Seizure Disorder , Sleep Apnea/CPAP/BIPAP Additional Past Medical History / Comment(s): last seizure 1 yr ago, hiatal hernia, chronic back pain, hx TIA - left arm and hand weakness from, lupus, continuous oxygen use at 3L, no cpap used, Last Myocardial Infarction Date:: 2014 History of Any Multi-Drug Resistant Organisms: None Reported Past Surgical History: Cholecystectomy, Heart Catheterization, Heart Catheterization With Stent, Tonsillectomy Additional Past Surgical History / Comment(s): STATES 2 cardiac stents, Past Anesthesia/Blood Transfusion Reactions: No Reported Reaction Additional Past Anesthesia/Blood Transfusion Reaction / Comment(s): blood transfusion-no reaction, unknown family hx per spouse Date of Last Stent Placement:: 2014 Past Psychological History: Anxiety, Depression Smoking Status: Current every day smoker Past Alcohol Use History: Occasional Past Drug Use History: None Reported - Past Family History Father Family Medical History: Myocardial Infarction (HI) Mother Family Medical History: Asthma, Cancer, COPD General Exam Limitations: no limitations General appearance: alert, in no apparent distress Head exam: Present: atraumatic, normocephalic, normal inspection Eye exam: Present: normal appearance, PERRL, EOMI. Absent: scleral icterus, conjunctival injection, periorbital swelling ENT exam: Present: normal exam, mucous membranes moist Neck exam: Present: normal inspection. Absent: tenderness, meningismus, lymphadenopathy Respiratory exam: Present: respiratory distress, wheezes, decreased breath sounds, prolonged expiratory. Absent: rales, rhonchi, stridor Cardiovascular Exam: Present: regular rate, normal rhythm, normal heart sounds. Absent: systolic murmur, diastolic murmur, rubs, gallop, clicks GI/Abdominal exam: Present: soft, normal bowel sounds. Absent: distended, tenderness, guarding, rebound, rigid Extremities exam: Present: normal inspection, full ROM, normal capillary refill. Absent: tenderness, pedal edema, joint swelling, calf tenderness Back exam: Present: normal inspection Neurological exam: Present: alert, oriented X3, CN II-XII intact Psychiatric exam: Present: normal affect, normal mood Skin exam: Present: warm, dry, intact, normal color. Absent: rash Course Vital Signs 02/04/18 02/04/18 20:02 21:00 Temperature 98.9 F Pulse Rate 86 76 Respiratory 18 16 Rate Blood Pressure 150/85 O2 Sat by Pulse 95 97 Oximetry - Reevaluation(s) Reevaluation #1: 02/04/18 21:08 Patient initially had chest pain improvement with nitro, still with chest pain currently EKG Findings - EKG Comments: EKG Findings:: EKG shows sinus rhythm rate of 87, TX 150, QRS 100, QTc 462 Medical Decision Making - Medical Decision Making 37 male the ER for evaluation of significant shortness of breath chest pain. Continue chest pain here in the emergency room. Patient be admitted for further evaluation management, anticoagulation cardiology evaluation as well as breathing treatments and steroids - Lab Data Result diagrams: 02/04/18 20:18 02/04/18 20:18 Lab Results 02/04/18 02/04/18 02/04/18 Range/Units 20:18 20:18 20:18 WBC 14.1 H (3.8-10.6) k/uL RBC 4.79 (4.30-5.90) m/uL Hgb 14.5 (13.0-17.5) gm/dL Hct 43.3 (39.0-53.0) % MCV 90.4 (80.0-100.0) fL MCH 30.2 (25.0-35.0) pg MCHC 33.4 (31.0-37.0) g/dL RDW 13.3 (11.5-15.5) % Plt Count 195 (150-450) k/uL Neutrophils % 71 % Lymphocytes % 22 % Monocytes % 4 % Eosinophils % 2 % Basophils % 0 % Neutrophils # 9.9 H (1.3-7.7) k/uL Lymphocytes # 3.2 (1.0-4.8) k/uL Monocytes # 0.6 (0-1.0) k/uL Eosinophils # 0.3 (0-0.7) k/uL Basophils # 0.0 (0-0.2) k/uL PT (9.0-12.0) sec INR (<1.2) APTT (22.0-30.0) sec D-Dimer (<0.60) mg/L FEU Sodium 145 (137-145) mmol/L Potassium 3.2 L (3.5-5.1) mmol/L Chloride 103 (98-107) mmol/L Carbon Dioxide 31 H (22-30) mmol/L Anion Gap 11 mmol/L BUN 12 (9-20) mg/dL Creatinine 0.73 (0.66-1.25) mg/dL Est GFR (CKD-EPI)AfAm >90 (>60 ml/min/1.73 sqM) Est GFR (CKD-EPI)NonAf >90 (>60 ml/min/1.73 sqM) Glucose 155 H (74-99) mg/dL Calcium 9.4 (8.4-10.2) mg/dL Magnesium 1.9 (1.6-2.3) mg/dL Total Bilirubin 0.4 (0.2-1.3) mg/dL AST 19 (17-59) U/L ALT 21 (21-72) U/L Alkaline Phosphatase 136 H (38-126) U/L Total Creatine Kinase 69 (55-170) U/L CK-MB (CK-2) 0.9 (0.0-2.4) ng/mL CK-MB (CK-2) Rel Index 1.3 Troponin I <0.012 (0.000-0.034) ng/mL NT-Pro-B Natriuret Pep pg/mL Total Protein 6.3 (6.3-8.2) g/dL Albumin 4.1 (3.5-5.0) g/dL Lipase 99 (23-300) U/L 02/04/18 02/04/18 Range/Units 20:18 20:18 WBC (3.8-10.6) k/uL RBC (4.30-5.90) m/uL Hgb (13.0-17.5) gm/dL Hct (39.0-53.0) % MCV (80.0-100.0) fL MCH (25.0-35.0) pg MCHC (31.0-37.0) g/dL RDW (11.5-15.5) % Plt Count (150-450) k/uL Neutrophils % % Lymphocytes % % Monocytes % % Eosinophils % % Basophils % % Neutrophils # (1.3-7.7) k/uL Lymphocytes # (1.0-4.8) k/uL Monocytes # (0-1.0) k/uL Eosinophils # (0-0.7) k/uL Basophils # (0-0.2) k/uL PT 10.1 (9.0-12.0) sec INR 1.0 (<1.2) APTT 22.0 (22.0-30.0) sec D-Dimer 0.28 (<0.60) mg/L FEU Sodium (137-145) mmol/L Potassium (3.5-5.1) mmol/L Chloride (98-107) mmol/L Carbon Dioxide (22-30) mmol/L Anion Gap mmol/L BUN (9-20) mg/dL Creatinine (0.66-1.25) mg/dL Est GFR (CKD-EPI)AfAm (>60 ml/min/1.73 sqM) Est GFR (CKD-EPI)NonAf (>60 ml/min/1.73 sqM) Glucose (74-99) mg/dL Calcium (8.4-10.2) mg/dL Magnesium (1.6-2.3) mg/dL Total Bilirubin (0.2-1.3) mg/dL AST (17-59) U/L ALT (21-72) U/L Alkaline Phosphatase (38-126) U/L Total Creatine Kinase (55-170) U/L CK-MB (CK-2) (0.0-2.4) ng/mL CK-MB (CK-2) Rel Index Troponin I (0.000-0.034) ng/mL NT-Pro-B Natriuret Pep 401 pg/mL Total Protein (6.3-8.2) g/dL Albumin (3.5-5.0) g/dL Lipase (23-300) U/L - Radiology Data Radiology results: report reviewed (Chest x-rays negative for acute disease), image reviewed Critical Care Time Critical Care Time: Yes Total Critical Care Time: 31 Disposition Clinical Impression: COPD (chronic obstructive pulmonary disease), S/P right coronary artery (RCA) stent placement, Acute exacerbation of chronic obstructive airways disease, Unstable angina pectoris Disposition: ADMITTED IP TO THIS HOSP Condition: Undetermined Is patient prescribed a controlled substance at d/c from ED?: No Referrals: Damir Teran MD [Primary Care Provider] - 1-2 days
[2018-02-04 20:32] LABS: Basophils % (A) 0 %; Eosinophils # (A) 0.3 k/uL (0-0.7); Eosinophils % (A) 2 %; HCT 43.3 % (39.0-53.0); HGB 14.5 gm/dL (13.0-17.5); Lymphocytes # (A) 3.2 k/uL (1.0-4.8); Lymphocytes % (A) 22 %; MCH 30.2 pg (25.0-35.0); MCHC 33.4 g/dL (31.0-37.0); MCV 90.4 fL (80.0-100.0); Mean Platelet Volume 7.8; Monocytes # (A) 0.6 k/uL (0-1.0); Monocytes % (A) 4 %; Neutrophils # (A) 9.9 k/uL (1.3-7.7); Neutrophils % (A) 71 %; Platelet Count 195 k/uL (150-450); RBC 4.79 m/uL (4.30-5.90); RDW 13.3 % (11.5-15.5); WBC 14.1 k/uL (3.8-10.6)
[2018-02-04 20:41] LABS: ALT 21 U/L (21-72); AST 19 U/L (17-59); Albumin 4.1 g/dL (3.5-5.0); Alkaline Phosphatase 136 U/L (38-126); Anion Gap 11 mmol/L; Blood Urea Nitrogen 12 mg/dL (9-20); Calcium 9.4 mg/dL (8.4-10.2); Carbon Dioxide 31 mmol/L (22-30); Chloride 103 mmol/L (98-107); Glucose 155 mg/dL (74-99); Lipase 99 U/L (23-300); Magnesium 1.9 mg/dL (1.6-2.3); Potassium 3.2 mmol/L (3.5-5.1); Sodium 145 mmol/L (137-145); Total Bilirubin 0.4 mg/dL (0.2-1.3); Total Protein 6.3 g/dL (6.3-8.2)
[2018-02-04 20:49] LABS: D-Dimer 0.28 mg/L FEU (<0.60); Prothrombin Time 10.1 sec (9.0-12.0)
[2018-02-04 20:50] LABS: Creatine Kinase 69 U/L (55-170)
--- NOTE | 2018-02-04 20:52 | XR ---
EXAMINATION TYPE: XR chest 2V DATE OF EXAM: 02/04/2018 COMPARISON: 07/18/2016 HISTORY: Chest pain TECHNIQUE: Frontal and lateral views of the chest are obtained. FINDINGS: There is no heart failure nor confluent pneumonic infiltrate. There are small linear densi ty at the right lung base. There is no pleural effusion. There is slight elevated left diaphragm. Bon y thorax is intact. There are chest leads. Mediastinum is normal. IMPRESSION: Mild left diaphragm elevation is a change compared to old exam of uncertain significance. Mild subsegmental atelectasis at the right lung base. Mild pulmonary fibrotic changes.
[2018-02-04 21:03] LABS: Creatine Kinase MB 0.9 ng/mL (0.0-2.4); Troponin I <0.012 ng/mL (0.000-0.034)
[2018-02-04] MEDS ORDERED: POTASSIUM CHLORIDE ER 20 MEQ TAB.ER PO STA (21:05)
[2018-02-04] MEDS ORDERED: methylPREDNISolone SOD SUCCI 125 MG/2 ML VIAL IV STA (21:05)
[2018-02-04] MEDS ORDERED: MORPHINE SULFATE 4 MG/ML SYRINGE IVP STA (21:05)
[2018-02-04] MEDS ORDERED: IPRATROPIUM-ALBUTEROL 3 ML NEB INHALATION STA (21:05)
[2018-02-04] MEDS ORDERED: HEPARIN SODIUM,PORCINE 5,000 UNIT/ML 1 ML VIAL IV PRN (21:08)
[2018-02-04] MEDS ORDERED: HEPARIN SODIUM,PORCINE 5,000 UNIT/ML 1 ML VIAL IV ONE (21:08)
[2018-02-04] MEDS ORDERED: HEPARIN SODIUM,PORCINE/D5W PMX 25,000 UNIT in DEXTROSE/WATER 1 500ML.BAG IV SCH (21:15)
[2018-02-04 22:28] VITALS: BMI 29.8
[2018-02-05] MEDS: methylPREDNISolone SOD SUCCI 125 MG/2 ML VIAL IV SCH ×2 (00:12→06:27)
[2018-02-05] MEDS: MORPHINE SULFATE 4 MG/ML SYRINGE IV PRN ×2 (02:14→06:19)
[2018-02-05 03:34] LABS: Basophils % (A) 0 %; Eosinophils # (A) 0.1 k/uL (0-0.7); Eosinophils % (A) 1 %; HCT 42.9 % (39.0-53.0); HGB 14.2 gm/dL (13.0-17.5); Lymphocytes # (A) 1.7 k/uL (1.0-4.8); Lymphocytes % (A) 16 %; MCH 30.1 pg (25.0-35.0); MCHC 33.1 g/dL (31.0-37.0); Mean Platelet Volume 7.4; Monocytes # (A) 0.2 k/uL (0-1.0); Monocytes % (A) 2 %; Neutrophils # (A) 9.1 k/uL (1.3-7.7); Neutrophils % (A) 81 %; Platelet Count 186 k/uL (150-450); RBC 4.72 m/uL (4.30-5.90); RDW 13.1 % (11.5-15.5); WBC 11.2 k/uL (3.8-10.6)
[2018-02-05 03:49] LABS: Cholesterol 153 mg/dL (<200); HDL Cholesterol 45 mg/dL (40-60); LDL Cholesterol,Calculated 55 mg/dL (0-99); Triglycerides 266 mg/dL (<150)
[2018-02-05 03:52] LABS: Creatine Kinase 64 U/L (55-170)
[2018-02-05 04:05] LABS: Creatine Kinase MB 1.1 ng/mL (0.0-2.4); Troponin I <0.012 ng/mL (0.000-0.034)
[2018-02-05 07:44] VITALS: BP 109/57; RESP 16; TEMP 97.8
[2018-02-05] MEDS ORDERED: IPRATROPIUM-ALBUTEROL 3 ML NEB INHALATION SCH (08:00)
--- NOTE | 2018-02-05 08:25 | P.CRDCN ---
History of Present Illness Consult date: 02/05/18 Chief complaint: Chest discomfort History of present illness: This is a pleasant 57-year-old gentleman who sees Dr. VC Small on a regular basis with a past medical history significant for coronary artery disease and status post a stenting of the RCA in the setting of acute inferior CT, intermediate disease involving the proximal LAD, based on heart catheterization was performed in September 2017, presented to the hospital complaining of chest discomfort. The patient was in his usual state of health until yesterday evening when he ate his dinner and after that he did not feel well. He started experiencing burning sensation in the chest associated with bilateral arm discomfort. No dizziness or lightheadedness. He thought he might had an episode of syncope but he's not quite sure about that. No sweating. He decided to call ambulance where he was brought to the emergency room. Before ambulance was called he took one nitroglycerin with partial relief in the chest discomfort. When he arrived to the emergency room he was pain-free and he continues to be pain-free. He underwent an EKG which showed sinus rhythm without any significant ST or T- wave abnormalities concerning for ischemia. 2 sets of cardiac enzymes were checked and came in to be unremarkable. The chest x-ray did not show any acute abnormalities. 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, lupus, continuous oxygen use at 3L, no cpap used, kidney failure with hemodilaysis in the past, 3 CT's, hypoglycemia Last Myocardial Infarction Date:: 2015 History of Any Multi-Drug Resistant Organisms: None Reported Past Surgical History: Cholecystectomy, Heart Catheterization, Heart Catheterization With Stent, Tonsillectomy Additional Past Surgical History / Comment(s): STATES 3 cardiac stents, Past Anesthesia/Blood Transfusion Reactions: No Reported Reaction Additional Past Anesthesia/Blood Transfusion Reaction / Comment(s): blood transfusion-no reaction, unknown family hx per spouse Date of Last Stent Placement:: 2016 Past Psychological History: Anxiety, Depression Additional Psychological History / Comment(s): . Smoking Status: Current every day smoker Past Alcohol Use History: Occasional Additional Past Alcohol Use History / Comment(s): smokes 1/2 PPD, started at age 12 was smoking 6ppd but down to have a pack Past Drug Use History: None Reported - Past Family History Father Family Medical History: Myocardial Infarction (CT) Mother Family Medical History: Asthma, Cancer, COPD Medications and Allergies Home Medications Medication Instructions Recorded Confirmed Type Albuterol Nebulized [Ventolin 2.5 mg INHALATION RT-QID PRN 04/11/15 02/04/18 History Nebulized] Metoprolol Tartrate [Lopressor] 25 mg PO BID #60 tab 09/18/15 02/04/18 Rx Loratadine [Claritin] 10 mg PO DAILY 05/21/16 02/04/18 History PARoxetine [Paxil] 20 mg PO DAILY 05/21/16 02/04/18 History Phenytoin Sodium Extended 200 mg PO BID 05/21/16 02/04/18 History [Dilantin] Clopidogrel Bisulfate [Clopidogrel] 75 mg PO DAILY 05/22/16 02/04/18 History Calcium Acetate [PhosLo] 667 mg PO TID-W/MEALS #90 cap 07/11/16 02/04/18 Rx Magnesium Oxide [Mag-Ox] 400 mg PO DAILY #30 tablet 07/11/16 02/04/18 Rx Multivit-Mins/Iron/Folic/Lycop 1 tab PO DAILY 07/22/16 02/04/18 History [Centrum Men's Tablet] rOPINIRole HCL [Requip] 1 mg PO BID 08/30/16 02/04/18 History Aspirin 325 mg PO DAILY 09/30/17 02/04/18 History Furosemide [Lasix] 40 mg PO BID 10/02/17 02/04/18 History Atorvastatin [Lipitor] 20 mg PO HS 10/03/17 02/04/18 History Fluticasone Nasal [place] [Flonase 2 spr EA NOSTRIL DAILY PRN 10/03/17 02/04/18 History Nasal [place]] Mycophenolate Mofetil [Cellcept] 1,000 mg PO BID 10/03/17 10/03/17 History Ranitidine HCl 150 mg PO BID 10/03/17 02/04/18 History Theophylline Anhydrous 400 mg PO DAILY 10/03/17 02/04/18 History [Theophylline] predniSONE 5 mg PO DAILY 10/03/17 02/04/18 History Allopurinol [Zyloprim] 1 tab PO DAILY 02/04/18 02/04/18 History Beclomethasone Dipropionate [Qvar 2 puff INHALATION RT-BID 02/04/18 02/04/18 History Redihaler] Ergocalciferol (Vitamin D2) 50,000 unit PO Q14D 02/04/18 02/04/18 History [Vitamin D2] Ipratropium [place] [Atrovent Hfa] 2 puff INHALATION RT-QID 02/04/18 02/04/18 History Montelukast [Singulair] 10 mg PO DAILY 02/04/18 02/04/18 History Morphine Sulfate ER [Ms Contin 30 mg PO Q12HR PRN 02/04/18 02/04/18 History 30Mg] Nitroglycerin Sl Tabs [Nitrostat] 0.4 mg SUBLINGUAL Q5M PRN 02/04/18 02/04/18 History Potassium Chloride [Klor-Con 20] 20 meq PO Q48H 02/04/18 02/04/18 History Potassium Chloride [Klor-Con 20] 40 meq PO Q48H 02/04/18 02/04/18 History Umeclidinium [place] [Incruse 62.5 mcg INHALATION RT-DAILY 02/04/18 02/04/18 History Ellipta] hydrOXYzine PAMOATE [Vistaril] 25 mg PO Q8H PRN 02/04/18 02/04/18 History Allergies Allergy/AdvReac Type Severity Reaction Status Date / Time Penicillins Allergy Severe Swelling Verified 02/04/18 20:55 Iodinated Contrast- Oral and Allergy Swelling Verified 02/04/18 20:55 IV Dye iodine Allergy Itching, Verified 02/04/18 20:55 Hives phenobarbital AdvReac Drowsiness Verified 02/04/18 20:55 Physical Exam Vitals: Vital Signs Temp Pulse Pulse Resp BP BP Pulse Ox 02/05/18 07:43 97.8 F 58 L 16 109/57 97 02/05/18 04:00 67 18 02/05/18 03:43 98.1 F 71 18 124/69 92 L 02/04/18 23:39 98.5 F 77 20 129/67 95 02/04/18 22:47 79 20 02/04/18 21:58 98.3 F 76 20 155/74 95 02/04/18 21:36 98.8 F 78 18 153/83 96 02/04/18 21:23 74 02/04/18 21:10 73 02/04/18 21:00 76 16 97 02/04/18 20:02 98.9 F 86 18 150/85 95 Intake and Output 02/04/18 02/05/18 02/05/18 22:59 06:59 14:59 Intake Total 168.667 Balance 168.667 Intake: Intake, IV Titration 168.667 Amount Heparin Sodium,Porcine/ 168.667 D5w Pmx 25,000 unit In Dextrose/Water 1 500ml. bag @ 10.914 UNITS/KG/HR 20 mls/hr IV .Q24H [facility] Rx #:[id number] Other: Voiding Method Toilet Toilet Toilet # Voids 1 3 Weight 91.444 kg - Constitutional General appearance: no acute distress - Respiratory Respiratory: bilateral: CTA - Cardiovascular Rhythm: regular Heart sounds: normal: S1, S2 Results 02/05/18 03:17 02/04/18 20:18 Cardiac Enzymes 02/04/18 02/04/18 02/05/18 Range/Units 20:18 20:18 03:17 AST 19 (17-59) U/L CK-MB (CK-2) 0.9 1.1 (0.0-2.4) ng/mL Troponin I <0.012 <0.012 (0.000-0.034) ng/mL Coagulation 02/04/18 02/05/18 Range/Units 20:18 03:17 PT 10.1 (9.0-12.0) sec APTT 22.0 29.4 (22.0-30.0) sec Lipids 02/05/18 Range/Units 03:17 Triglycerides 266 H (<150) mg/dL Cholesterol 153 (<200) mg/dL HDL Cholesterol 45 (40-60) mg/dL CBC 02/04/18 02/05/18 Range/Units 20:18 03:17 WBC 14.1 H 11.2 H (3.8-10.6) k/uL RBC 4.79 4.72 (4.30-5.90) m/uL Hgb 14.5 14.2 (13.0-17.5) gm/dL Hct 43.3 42.9 (39.0-53.0) % Plt Count 195 186 (150-450) k/uL Comprehensive Metabolic Panel 02/04/18 Range/Units 20:18 Sodium 145 (137-145) mmol/L Potassium 3.2 L (3.5-5.1) mmol/L Chloride 103 (98-107) mmol/L Carbon Dioxide 31 H (22-30) mmol/L BUN 12 (9-20) mg/dL Creatinine 0.73 (0.66-1.25) mg/dL Glucose 155 H (74-99) mg/dL Calcium 9.4 (8.4-10.2) mg/dL AST 19 (17-59) U/L ALT 21 (21-72) U/L Alkaline Phosphatase 136 H (38-126) U/L Total Protein 6.3 (6.3-8.2) g/dL Albumin 4.1 (3.5-5.0) g/dL Current Medications Generic Name Dose Route Start Last Admin Trade Name Freq PRN Reason Stop Dose Admin Albuterol/Ipratropium 3 ml 02/05/18 08:00 Duoneb 0.5 Mg-3 Mg/3 Ml Soln INHALATION RT-QID [facility] Aspirin 325 mg 02/05/18 09:00 Aspirin PO DAILY [facility] Atorvastatin Calcium 80 mg 02/05/18 09:00 Lipitor PO DAILY [facility] Heparin Sodium (Porcine) 0 unit 02/04/18 21:08 Heparin IV PER PROTOCOL PRN Low PTT Protocol Heparin Sodium/Dextrose 25,000 500 mls @ 20 mls/hr 02/04/18 21:15 02/05/18 05 :56 unit/ IV Solution IV 13.86 units/kg/hr .Q24H [facility] 25.4 mls/hr Protocol Titration 10.914 UNITS/KG/HR Methylprednisolone Sodium Succinate 60 mg 02/05/18 00:00 02/05/18 06:27 Solu-Medrol IV 60 mg Q6HR [facility] Administration Morphine Sulfate 4 mg 02/04/18 20:05 02/05/18 06:19 Morphine Sulfate (Inj) IV 4 mg Q5M PRN Administration Chest Pain Nitroglycerin 0.4 mg 02/04/18 20:05 Nitrostat SUBLINGUAL Q5M PRN Chest Pain Ropinirole HCl 1 mg 02/04/18 22:45 02/04/18 23:20 Requip PO 1 mg BID [facility] Administration Intake and Output 02/04/18 02/05/18 02/05/18 22:59 06:59 14:59 Intake Total 168.667 Balance 168.667 Intake: Intake, IV Titration 168.667 Amount Heparin Sodium,Porcine/ 168.667 D5w Pmx 25,000 unit In Dextrose/Water 1 500ml. bag @ 10.914 UNITS/KG/HR 20 mls/hr IV .Q24H [facility] Rx #:[id number] Other: Voiding Method Toilet Toilet Toilet # Voids 1 3 Weight 91.444 kg 02/05/18 03:17 02/04/18 20:18 Assessment and Plan Assessment: Assessment #1 when episode of chest discomfort, the chest discomfort has resolved. #2 known carotid artery disease and status post stenting of the RCA #3 intermediate disease in the proximal LAD with an FFR was nonischemic in September 2017 #4 significant history of smoking #5 hypertension #6 dyslipidemia Plan #1 the patient was ruled out for acute coronary event #2 I am going to add oral nitrates to the current medical treatment #3 get the patient up and around and if he is asymptomatic he can be discharged home and follow-up as an outpatient with Dr. Small. Thank you for allowing us but spitting his care.
[2018-02-05] MEDS ORDERED: FLUTICASONE 50MCG/SPRAY NASAL 16GM EA NOSTRIL PRN (08:26)
[2018-02-05] MEDS ORDERED: NITROGLYCERIN SL TABS 0.4 MG TAB SUBLINGUAL PRN (08:26)
[2018-02-05] MEDS ORDERED: hydrOXYzine PAMOATE 25 MG CAP PO PRN (08:26)
[2018-02-05] MEDS ORDERED: MORPHINE SULFATE ER 30 MG TABLET PO PRN (08:26)
[2018-02-05] MEDS ORDERED: ALBUTEROL NEBULIZED 2.5 MG/3 ML INHALATION PRN (08:26)
[2018-02-05 08:52] LABS: Anion Gap 8 mmol/L; Blood Urea Nitrogen 13 mg/dL (9-20); Calcium 9.1 mg/dL (8.4-10.2); Carbon Dioxide 31 mmol/L (22-30); Chloride 108 mmol/L (98-107); Glucose 93 mg/dL (74-99); Potassium 5.1 mmol/L (3.5-5.1); Sodium 147 mmol/L (137-145)
[2018-02-05 08:59] LABS: Creatine Kinase 59 U/L (55-170)
[2018-02-05] MEDS ORDERED: LORATADINE 10 MG TAB PO SCH (09:00)
[2018-02-05] MEDS ORDERED: ALLOPURINOL 100 MG TAB PO SCH (09:00)
[2018-02-05] MEDS ORDERED: MONTELUKAST 10 MG TAB PO SCH (09:00)
[2018-02-05] MEDS ORDERED: PARoxetine 20 MG TAB PO SCH (09:00)
[2018-02-05] MEDS ORDERED: FUROSEMIDE 40 MG TAB PO SCH (09:00)
[2018-02-05] MEDS ORDERED: ASPIRIN 325 MG TAB PO SCH ×2 (09:00)
[2018-02-05] MEDS ORDERED: CLOPIDOGREL 75 MG TAB PO SCH (09:00)
[2018-02-05] MEDS ORDERED: MYCOPHENOLATE MOFETIL 500 MG TAB PO SCH (09:00)
[2018-02-05] MEDS ORDERED: MAGNESIUM OXIDE 400 MG TAB PO SCH (09:00)
[2018-02-05] MEDS ORDERED: THEOPHYLLINE 24 HOUR 400 MG CAP.ER.24H PO SCH (09:00)
[2018-02-05] MEDS ORDERED: FAMOTIDINE 20 MG TAB PO SCH (09:00)
[2018-02-05] MEDS ORDERED: ATORVASTATIN 80 MG TAB PO SCH (09:00)
[2018-02-05] MEDS ORDERED: PHENYTOIN SODIUM EXTENDED 100 MG CAP PO SCH (09:00)
[2018-02-05] MEDS ORDERED: METOPROLOL TARTRATE 25 MG TAB PO SCH (09:00)
[2018-02-05 09:10] LABS: Creatine Kinase MB 1.2 ng/mL (0.0-2.4); Troponin I <0.012 ng/mL (0.000-0.034)
[2018-02-05 09:13] VITALS: PULSE 76
[2018-02-05] MEDS ORDERED: ISOSORBIDE MONONITRATE ER 30 MG TAB.ER.24H PO SCH (10:15)
--- NOTE | 2018-02-05 10:20 | P.HPIM ---
History of Present Illness H&P Date: 02/05/18 Chief Complaint: Chest pain This document serves as H&P and discharge summary 57-year-old male who presented to the emergency room with a chief complaint of chest pain. The patient states he was having an intermittent burning sensation that started on the left side of his chest and continued to the right side. There was apparently a question of whether the patient had a syncopal episode. The patient denies any syncopal episodes at home or while in the hospital. He denies lightheadedness or dizziness. He denies shortness of breath that is worse than his baseline. He does wear home o2. He does not appear to be in any distress and is resting comfortably in bed. The patient has a history of coronary artery disease with previous stent placement to the RCA. He has a history of COPD, home oxygen use, CVA/TIA, GERD , hyperlipidemia, hypertension, seizure disorder, and chronic back pain. He is a current cigarette smoker Chest x-ray: Mild left diaphragm elevation is a change compared to old exam of uncertain significance. Mild sub-segmental atelectasis at the right lung base. Mild pulmonary fibrotic changes. EKG: Sinus rhythm. Rate 87. Laboratory data: WBC 14.1. Hemoglobin 14.5. Platelet count 195. INR 1.0. D-dimer 0.28. Sodium 145. Potassium 3.2. BUN 12. Creatinine 0.73. Glucose 155. Magnesium 1.9. Troponins: Negative 3 BNP: 405. Lipid panel: Triglycerides 266, cholesterol 153, LDL 55, HDL 45 The patient was admitted to the hospital under the care of Dr. Cates. Consultations were placed to cardiology. 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, lupus, continuous oxygen use at 3L, no cpap used, kidney failure with hemodilaysis in the past, 3 VT's, hypoglycemia Last Myocardial Infarction Date:: 2015 History of Any Multi-Drug Resistant Organisms: None Reported Past Surgical History: Cholecystectomy, Heart Catheterization, Heart Catheterization With Stent, Tonsillectomy Additional Past Surgical History / Comment(s): STATES 3 cardiac stents, Past Anesthesia/Blood Transfusion Reactions: No Reported Reaction Additional Past Anesthesia/Blood Transfusion Reaction / Comment(s): blood transfusion-no reaction, unknown family hx per spouse Date of Last Stent Placement:: 2015 Past Psychological History: Anxiety, Depression Additional Psychological History / Comment(s): . Smoking Status: Current every day smoker Past Alcohol Use History: Occasional Additional Past Alcohol Use History / Comment(s): smokes 1/2 PPD, started at age 12 was smoking 6ppd but down to have a pack Past Drug Use History: None Reported - Past Family History Father Family Medical History: Myocardial Infarction (VT) Mother Family Medical History: Asthma, Cancer, COPD Medications and Allergies Home Medications Medication Instructions Recorded Confirmed Type Albuterol Nebulized [Ventolin 2.5 mg INHALATION RT-QID PRN 04/11/15 02/04/18 History Nebulized] Metoprolol Tartrate [Lopressor] 25 mg PO BID #60 tab 09/18/15 02/04/18 Rx Loratadine [Claritin] 10 mg PO DAILY 05/21/16 02/04/18 History PARoxetine [Paxil] 20 mg PO DAILY 05/21/16 02/04/18 History Phenytoin Sodium Extended 200 mg PO BID 05/21/16 02/04/18 History [Dilantin] Clopidogrel Bisulfate [Clopidogrel] 75 mg PO DAILY 05/22/16 02/04/18 History Calcium Acetate [PhosLo] 667 mg PO TID-W/MEALS #90 cap 07/11/16 02/04/18 Rx Magnesium Oxide [Mag-Ox] 400 mg PO DAILY #30 tablet 07/11/16 02/04/18 Rx Multivit-Mins/Iron/Folic/Lycop 1 tab PO DAILY 07/22/16 02/04/18 History [Centrum Men's Tablet] rOPINIRole HCL [Requip] 1 mg PO BID 08/30/16 02/04/18 History Aspirin 325 mg PO DAILY 09/30/17 02/04/18 History Furosemide [Lasix] 40 mg PO BID 10/02/17 02/04/18 History Atorvastatin [Lipitor] 20 mg PO HS 10/03/17 02/04/18 History Fluticasone Nasal [place] [Flonase 2 spr EA NOSTRIL DAILY PRN 10/03/17 02/04/18 History Nasal [place]] Mycophenolate Mofetil [Cellcept] 1,000 mg PO BID 10/03/17 10/03/17 History Ranitidine HCl 150 mg PO BID 10/03/17 02/04/18 History Theophylline Anhydrous 400 mg PO DAILY 10/03/17 02/04/18 History [Theophylline] predniSONE 5 mg PO DAILY 10/03/17 02/04/18 History Allopurinol [Zyloprim] 1 tab PO DAILY 02/04/18 02/04/18 History Beclomethasone Dipropionate [Qvar 2 puff INHALATION RT-BID 02/04/18 02/04/18 History Redihaler] Ergocalciferol (Vitamin D2) 50,000 unit PO Q14D 02/04/18 02/04/18 History [Vitamin D2] Ipratropium [place] [Atrovent Hfa] 2 puff INHALATION RT-QID 02/04/18 02/04/18 History Montelukast [Singulair] 10 mg PO DAILY 02/04/18 02/04/18 History Morphine Sulfate ER [Ms Contin] 30 mg PO Q12HR PRN 02/04/18 02/04/18 History Nitroglycerin Sl Tabs [Nitrostat] 0.4 mg SUBLINGUAL Q5M PRN 02/04/18 02/04/18 History Potassium Chloride [Klor-Con 20] 20 meq PO Q48H 02/04/18 02/04/18 History Potassium Chloride [Klor-Con 20] 40 meq PO Q48H 02/04/18 02/04/18 History Umeclidinium [place] [Incruse 62.5 mcg INHALATION RT-DAILY 02/04/18 02/04/18 History Ellipta] hydrOXYzine PAMOATE [Vistaril] 25 mg PO Q8H PRN 02/04/18 02/04/18 History Isosorbide Mononitrate ER [Imdur] 30 mg PO DAILY #30 tab 02/05/18 Rx predniSONE See Taper PO DIRECTED #30 tab 02/05/18 Rx Allergies Allergy/AdvReac Type Severity Reaction Status Date / Time Penicillins Allergy Severe Swelling Verified 02/04/18 20:55 Iodinated Contrast- Oral and Allergy Swelling Verified 02/04/18 20:55 IV Dye iodine Allergy Itching, Verified 02/04/18 20:55 Hives phenobarbital AdvReac Drowsiness Verified 02/04/18 20:55 Physical Exam Vitals: Vital Signs Temp Pulse Pulse Resp BP BP Pulse Ox 02/05/18 09:13 76 02/05/18 08:58 72 02/05/18 07:43 97.8 F 58 L 16 109/57 97 02/05/18 04:00 67 18 02/05/18 03:43 98.1 F 71 18 124/69 92 L 02/04/18 23:39 98.5 F 77 20 129/67 95 02/04/18 22:47 79 20 02/04/18 21:58 98.3 F 76 20 155/74 95 02/04/18 21:36 98.8 F 78 18 153/83 96 02/04/18 21:23 74 02/04/18 21:10 73 02/04/18 21:00 76 16 97 02/04/18 20:02 98.9 F 86 18 150/85 95 Intake and Output 02/04/18 02/05/18 02/05/18 22:59 06:59 14:59 Intake Total 168.667 Balance 168.667 Intake: Intake, IV Titration 168.667 Amount Heparin Sodium,Porcine/ 168.667 D5w Pmx 25,000 unit In Dextrose/Water 1 500ml. bag @ 10.914 UNITS/KG/HR 20 mls/hr IV .Q24H [facility] Rx #:[id number] Other: Voiding Method Toilet Toilet Toilet # Voids 1 3 Weight 91.444 kg GENERAL: This is a 57-year-old male in no apparent distress at the time of examination, however he is extremely anxious to be discharged. HEENT: Head is atraumatic, normocephalic. Pupils are equal, round, and reactive to light. Sclerae anicteric. Conjunctivae are clear. Mucus membranes of the mouth are moist. Neck is supple. RESPIRATORY: Clear to ausculation. No wheezes, rales, or rhonchi. No use of accessory muscles. Patient maintaining oxygen saturation greater than 92%. No chest wall tenderness is noted on palpation or with deep breathing. CARDIOVASCULAR: Regular rate and rhythm. S1 and S2 noted. No JVD noted. No S3 or S4 noted. GASTROINTESTINAL: No distention noted. Abdomen soft and round. Normal active bowel sounds auscultated x 4 quadrants. No pain or tenderness noted upon palpation. INTEGUMENTARY: No cyanosis. No jaundice. No rashes noted. No cellulitis noted. EXTREMITIES: 2+ peripheral pulses. No evidence of peripheral edema. No calf tenderness noted. NEUROLOGIC: Cranial nerves II-XII intact. PSYCHIATRIC: Awake, alert, and oriented X 3. Anxious. Results CBC & Chem 7: 02/05/18 03:17 02/05/18 08:16 Labs: Abnormal Lab Results - Last 24 Hours (Table) 02/04/18 02/04/18 02/05/18 Range/Units 20:18 20:18 03:17 WBC 14.1 H (3.8-10.6) k/uL Neutrophils # 9.9 H (1.3-7.7) k/uL Sodium (137-145) mmol/L Potassium 3.2 L (3.5-5.1) mmol/L Chloride (98-107) mmol/L Carbon Dioxide 31 H (22-30) mmol/L Glucose 155 H (74-99) mg/dL Alkaline Phosphatase 136 H (38-126) U/L Triglycerides 266 H (<150) mg/dL 02/05/18 02/05/18 Range/Units 03:17 08:16 WBC 11.2 H (3.8-10.6) k/uL Neutrophils # 9.1 H (1.3-7.7) k/uL Sodium 147 H (137-145) mmol/L Potassium (3.5-5.1) mmol/L Chloride 108 H (98-107) mmol/L Carbon Dioxide 31 H (22-30) mmol/L Glucose (74-99) mg/dL Alkaline Phosphatase (38-126) U/L Triglycerides (<150) mg/dL Thrombosis Risk Factor Assmnt - Choose All That Apply Each Factor Represents 1 point: Age 41-60 years, Obesity (BMI >25) Thrombosis Risk Factor Assessment Total Risk Factor Score: 2 Thrombosis Risk Factor Assessment Level: Low Risk Assessment and Plan Plan: ASSESSMENT: Chest pain, atypical, acute coronary syndrome ruled out per cardiology Coronary artery disease with previous stent to the RCA COPD, acute exacerbation ruled out Hyperlipidemia Hypertension History of seizure disorder History of chronic back pain Anxiety, unspecified Nicotine dependence, patient is a current cigarette smoker PLAN: Patient has been cleared for discharge from a cardiology standpoint. He was started on Imdur per cardiology. The patient has a stress test already scheduled outpatient in the near future. The patient does not have an acute exacerbation of COPD, however he was started on high-dose IV steroids in the emergency room. His dose has been decreased. We will send the patient home on a prednisone taper due to the administration of high-dose IV steroids in the hospital. The patient was encouraged to abstain from cigarette smoking. He is to follow up with Dr. Teran/Loan and his jd edwards consultant. Nurse practitioner note has been reviewed by physician. Signing provider agrees with the documented findings, assessment, and plan of care.
[2018-02-05] MEDS ORDERED: NON-FORMULARY DRUG (Ipratropium Bromide [Atrovent Hfa] 2 PUFF) INHALATION SCH (12:00)
[2018-02-05] MEDS ORDERED: CALCIUM ACETATE 667 MG CAP PO SCH (12:30)
[2018-02-05] MEDS ORDERED: methylPREDNISolone SOD SUCCI 40 MG/ML 1 ML VIAL IV SCH (16:00)
[2018-02-05] MEDS ORDERED: BUDESONIDE 0.5 MG/2 ML NEBU INHALATION SCH (20:00)
[2018-02-05] MEDS ORDERED: ATORVASTATIN 20 MG TAB PO SCH (21:00)
[2018-02-06] MEDS ORDERED: IPRATROPIUM 0.5 MG/2.5 ML NEBU INHALATION SCH (08:00)
== END 2018-02-05 10:22 | disposition home or self-care (01) ==
LOC: EC 20:00 → 3OBS 20:05
PROVIDERS: ADMIT Family Medicine; ATTEND Family Medicine
DX: R07.89 Other chest pain (principal); I25.10 Atherosclerotic heart disease of native coronary artery without angina pectoris; Z95.5 Presence of coronary angioplasty implant and graft; J44.9 Chronic obstructive pulmonary disease, unspecified; E78.5 Hyperlipidemia, unspecified; G40.909 Epilepsy, unspecified, not intractable, without status epilepticus; G89.29 Other chronic pain; M54.9 Dorsalgia, unspecified; F41.9 Anxiety disorder, unspecified; F17.210 Nicotine dependence, cigarettes, uncomplicated; R20.8 Other disturbances of skin sensation; Z99.81 Dependence on supplemental oxygen; Z86.73 Personal history of transient ischemic attack (TIA), and cerebral infarction without residual deficits; K21.9 Gastro-esophageal reflux disease without esophagitis; I50.9 Heart failure, unspecified; I25.2 Old myocardial infarction; G47.30 Sleep apnea, unspecified; Z87.01 Personal history of pneumonia (recurrent); I11.0 Hypertensive heart disease with heart failure; M19.90 Unspecified osteoarthritis, unspecified site; M32.9 Systemic lupus erythematosus, unspecified; F32.9 Major depressive disorder, single episode, unspecified; Z80.9 Family history of malignant neoplasm, unspecified; Z79.899 Other long term (current) drug therapy; Z79.02 Long term (current) use of antithrombotics/antiplatelets; Z79.82 Long term (current) use of aspirin; Z79.51 Long term (current) use of inhaled steroids; Z79.52 Long term (current) use of systemic steroids; Z91.041 Radiographic dye allergy status; Z88.0 Allergy status to penicillin; Z88.8 Allergy status to other drugs, medicaments and biological substances; Z91.048 Other nonmedicinal substance allergy status; E66.9 Obesity, unspecified; Z68.29 Body mass index [BMI] 29.0-29.9, adult; M79.602 Pain in left arm; M79.601 Pain in right arm; N28.9 Disorder of kidney and ureter, unspecified
CPT/HCPCS: 36415; 71046; 80048; 80053; 80061; 82550; 82553; 83690; 83735; 83880; 84484; 85025; 85379; 85610; 85730; 93005; 94640; 96361; 96365; 96366; 96375; 96376; 99291

== ENCOUNTER 2018-02-06 20:15 | Observation (INO) | payer OTHER ==
[2018-02-06] MEDS ORDERED: IPRATROPIUM 0.5 MG/2.5 ML NEBU INHALATION STA (20:34)
[2018-02-06] MEDS ORDERED: methylPREDNISolone SOD SUCCI 125 MG/2 ML VIAL IV STA (20:34)
[2018-02-06] MEDS ORDERED: MAGNESIUM SULFATE-D5W PMX 1 GM in DEXTROSE/WATER 1 100ML.BAG IVPB STA (20:34)
[2018-02-06] MEDS ORDERED: ALBUTEROL NEBULIZED 2.5 MG/3 ML INHALATION STA (20:34)
--- NOTE | 2018-02-06 20:37 | ED ---
SOB HPI - General Chief Complaint: Shortness of Breath Stated Complaint: Arm/neck pain Time Seen by Provider: 02/06/18 20:35 Source: patient Mode of arrival: ambulatory Limitations: no limitations - History of Present Illness Initial Comments: Patient presents with shortness of breath. He was recently admitted to the hospital. He did not fill any of his medications. He has tightness in the chest, but no belly or back pain. He has no nausea or vomiting. He has no lightheadedness or dizziness. He has no palpitations. He has no pain or swelling the legs. He has taken no medications, and therefore he is not feeling any better today. - Related Data Home Medications Medication Instructions Recorded Confirmed Albuterol Nebulized [Ventolin 2.5 mg INHALATION RT-QID PRN 04/11/15 02/04/18 Nebulized] Loratadine [Claritin] 10 mg PO DAILY 05/21/16 02/04/18 PARoxetine [Paxil] 20 mg PO DAILY 05/21/16 02/04/18 Phenytoin Sodium Extended 200 mg PO BID 05/21/16 02/04/18 [Dilantin] Clopidogrel Bisulfate [Clopidogrel] 75 mg PO DAILY 05/22/16 02/04/18 Multivit-Mins/Iron/Folic/Lycop 1 tab PO DAILY 07/22/16 02/04/18 [Centrum Men's Tablet] rOPINIRole HCL [Requip] 1 mg PO BID 08/30/16 02/04/18 Aspirin 325 mg PO DAILY 09/30/17 02/04/18 Furosemide [Lasix] 40 mg PO BID 10/02/17 02/04/18 Atorvastatin [Lipitor] 20 mg PO HS 10/03/17 02/04/18 Fluticasone Nasal [place] [Flonase 2 spr EA NOSTRIL DAILY PRN 10/03/17 02/04/18 Nasal [place]] Mycophenolate Mofetil [Cellcept] 1,000 mg PO BID 10/03/17 10/03/17 Ranitidine HCl 150 mg PO BID 10/03/17 02/04/18 Theophylline Anhydrous 400 mg PO DAILY 10/03/17 02/04/18 [Theophylline] predniSONE 5 mg PO DAILY 10/03/17 02/04/18 Allopurinol [Zyloprim] 1 tab PO DAILY 02/04/18 02/04/18 Beclomethasone Dipropionate [Qvar 2 puff INHALATION RT-BID 02/04/18 02/04/18 Redihaler] Ergocalciferol (Vitamin D2) 50,000 unit PO Q14D 02/04/18 02/04/18 [Vitamin D2] Ipratropium [place] [Atrovent Hfa] 2 puff INHALATION RT-QID 02/04/18 02/04/18 Montelukast [Singulair] 10 mg PO DAILY 02/04/18 02/04/18 Morphine Sulfate ER [Ms Contin] 30 mg PO Q12HR PRN 02/04/18 02/04/18 Nitroglycerin Sl Tabs [Nitrostat] 0.4 mg SUBLINGUAL Q5M PRN 02/04/18 02/04/18 Potassium Chloride [Klor-Con 20] 20 meq PO Q48H 02/04/18 02/04/18 Potassium Chloride [Klor-Con 20] 40 meq PO Q48H 02/04/18 02/04/18 Umeclidinium [place] [Incruse 62.5 mcg INHALATION RT-DAILY 02/04/18 02/04/18 Ellipta] hydrOXYzine PAMOATE [Vistaril] 25 mg PO Q8H PRN 02/04/18 02/04/18 Previous Rx's Medication Instructions Recorded Metoprolol Tartrate [Lopressor] 25 mg PO BID #60 tab 09/18/15 Calcium Acetate [PhosLo] 667 mg PO TID-W/MEALS #90 cap 07/11/16 Magnesium Oxide [Mag-Ox] 400 mg PO DAILY #30 tablet 07/11/16 Isosorbide Mononitrate ER [Imdur] 30 mg PO DAILY #30 tab 02/05/18 predniSONE See Taper PO DIRECTED #30 tab 02/05/18 Allergies Allergy/AdvReac Type Severity Reaction Status Date / Time Penicillins Allergy Severe Swelling Verified 02/06/18 20:26 Iodinated Contrast- Oral and Allergy Swelling Verified 02/06/18 20:26 IV Dye iodine Allergy Itching, Verified 02/06/18 20:26 Hives phenobarbital AdvReac Drowsiness Verified 02/06/18 20:26 Review of Systems ROS Statement: Those systems with pertinent positive or pertinent negative responses have been documented in the HPI. ROS Other: All systems not noted in ROS Statement are negative. 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, lupus, continuous oxygen use at 3L, no cpap used, kidney failure with hemodilaysis in the past, 3 [place]'s, hypoglycemia Last Myocardial Infarction Date:: 2015 History of Any Multi-Drug Resistant Organisms: None Reported Past Surgical History: Cholecystectomy, Heart Catheterization, Heart Catheterization With Stent, Tonsillectomy Additional Past Surgical History / Comment(s): STATES 3 cardiac stents, Past Anesthesia/Blood Transfusion Reactions: No Reported Reaction Additional Past Anesthesia/Blood Transfusion Reaction / Comment(s): blood transfusion-no reaction, unknown family hx per spouse Date of Last Stent Placement:: 2015 Past Psychological History: Anxiety, Depression Smoking Status: Current every day smoker Past Alcohol Use History: Occasional Past Drug Use History: None Reported - Past Family History Father Family Medical History: Myocardial Infarction ([place]) Mother Family Medical History: Asthma, Cancer, COPD General Exam Limitations: no limitations General appearance: alert, in no apparent distress Head exam: Present: atraumatic, normocephalic, normal inspection Eye exam: Present: normal appearance, PERRL, EOMI. Absent: scleral icterus, conjunctival injection, periorbital swelling ENT exam: Present: normal exam, mucous membranes moist Neck exam: Present: normal inspection. Absent: tenderness, meningismus, lymphadenopathy Respiratory exam: Present: respiratory distress, wheezes. Absent: rales, rhonchi, stridor Cardiovascular Exam: Present: regular rate, normal rhythm, normal heart sounds. Absent: systolic murmur, diastolic murmur, rubs, gallop, clicks GI/Abdominal exam: Present: soft, normal bowel sounds. Absent: distended, tenderness, guarding, rebound, rigid Extremities exam: Present: normal inspection, full ROM, normal capillary refill. Absent: tenderness, pedal edema, joint swelling, calf tenderness Back exam: Present: normal inspection Neurological exam: Present: alert, oriented X3, CN II-XII intact Psychiatric exam: Present: normal affect, normal mood Skin exam: Present: warm, dry, intact, normal color. Absent: rash Course Vital Signs 02/06/18 20:20 Temperature 100.0 F H Pulse Rate 82 Respiratory 18 Rate Blood Pressure 162/93 O2 Sat by Pulse 92 L Oximetry Medical Decision Making - Medical Decision Making Patient presents with shortness of breath. He has been getting breathing treatments and IV magnesium and steroids. He is not feeling any better. He will be admitted to the hospital. Critical Care Time Critical Care Time: Yes Total Critical Care Time: 35 Disposition Clinical Impression: COPD (chronic obstructive pulmonary disease) Disposition: ADMITTED IP TO THIS HOSP Condition: Fair Is patient prescribed a controlled substance at d/c from ED?: No Referrals: Damir Teran MD [Primary Care Provider] - 1-2 days
[2018-02-06] MEDS ORDERED: NALOXONE 0.4 MG/ML 1 ML VIAL IV PRN (20:45)
[2018-02-06] MEDS ORDERED: ONDANSETRON 4 MG/2 ML VIAL IVP PRN (20:45)
[2018-02-06] MEDS ORDERED: ALBUTEROL NEBULIZED 2.5 MG/3 ML INHALATION PRN (20:48)
[2018-02-06] MEDS ORDERED: NITROGLYCERIN SL TABS 0.4 MG TAB SUBLINGUAL PRN (20:48)
[2018-02-06] MEDS ORDERED: FLUTICASONE 50MCG/SPRAY NASAL 16GM EA NOSTRIL PRN (20:48)
[2018-02-06] MEDS ORDERED: hydrOXYzine PAMOATE 25 MG CAP PO PRN (20:48)
[2018-02-06] MEDS ORDERED: ATORVASTATIN 80 MG TAB PO SCH (21:00)
[2018-02-06] MEDS ORDERED: FUROSEMIDE 20 MG TAB PO SCH (21:00)
[2018-02-06 21:36] LABS: Basophils % (A) 0 %; Eosinophils # (A) 0.3 k/uL (0-0.7); Eosinophils % (A) 2 %; HCT 42.8 % (39.0-53.0); Lymphocytes # (A) 3.3 k/uL (1.0-4.8); Lymphocytes % (A) 25 %; MCH 29.8 pg (25.0-35.0); MCHC 32.8 g/dL (31.0-37.0); MCV 91.1 fL (80.0-100.0); Monocytes # (A) 0.5 k/uL (0-1.0); Monocytes % (A) 4 %; Neutrophils # (A) 9.2 k/uL (1.3-7.7); Neutrophils % (A) 68 %; Platelet Count 195 k/uL (150-450); RDW 13.2 % (11.5-15.5); WBC 13.4 k/uL (3.8-10.6)
[2018-02-06 21:45] LABS: Partial Thromboplastin Time 23.8 sec (22.0-30.0); Prothrombin Time 9.6 sec (9.0-12.0)
[2018-02-06 21:48] LABS: ALT 50 U/L (21-72); AST 35 U/L (17-59); Alkaline Phosphatase 135 U/L (38-126); Anion Gap 12 mmol/L; Blood Urea Nitrogen 19 mg/dL (9-20); Calcium 9.4 mg/dL (8.4-10.2); Carbon Dioxide 31 mmol/L (22-30); Chloride 104 mmol/L (98-107); Glucose 135 mg/dL (74-99); Potassium 3.4 mmol/L (3.5-5.1); Sodium 147 mmol/L (137-145); Total Bilirubin <0.1 mg/dL (0.2-1.3); Total Protein 6.2 g/dL (6.3-8.2)
--- NOTE | 2018-02-06 21:52 | XR ---
EXAMINATION TYPE: XR chest 2V DATE OF EXAM: 02/06/2018 COMPARISON: 02/04/2018 HISTORY: Asthma and COPD TECHNIQUE: Frontal and lateral views of the chest are obtained. FINDINGS: There is no heart failure nor confluent pneumonic infiltrate. Heart and mediastinum are no rmal. There are no hilar masses. There is mild spurring in the thoracic spine. There are chest leads. IMPRESSION: No active cardiopulmonary disease. No adverse change compared to last exam.
[2018-02-06] MEDS ORDERED: POTASSIUM CHLORIDE ER 20 MEQ TAB.ER PO SCH (22:30)
[2018-02-06] MEDS ORDERED: predniSONE 5 MG TAB PO SCH (22:30)
[2018-02-06] MEDS ORDERED: ATORVASTATIN 20 MG TAB PO SCH (23:00)
[2018-02-06] MEDS: KETOROLAC 30 MG/ML 1 ML VIAL IVP SCH (23:50)
[2018-02-06] MEDS: MYCOPHENOLATE MOFETIL 500 MG TAB PO SCH (23:51)
[2018-02-06] MEDS: METOPROLOL TARTRATE 25 MG TAB PO SCH (23:51)
[2018-02-06] MEDS: FAMOTIDINE 20 MG TAB PO SCH (23:52)
[2018-02-06] MEDS: FUROSEMIDE 40 MG TAB PO SCH (23:52)
[2018-02-06] MEDS: PHENYTOIN SODIUM EXTENDED 100 MG CAP PO SCH (23:53)
[2018-02-07] MEDS: NICOTINE 21MG/24HR PATCH TRANSDERM SCH ×2 (01:07→09:29)
[2018-02-07] MEDS: KETOROLAC 30 MG/ML 1 ML VIAL IVP SCH ×2 (05:45→11:35)
[2018-02-07] MEDS ORDERED: CALCIUM ACETATE 667 MG CAP PO SCH (07:30)
[2018-02-07] MEDS ORDERED: IPRATROPIUM 0.5 MG/2.5 ML NEBU INHALATION SCH (08:00)
[2018-02-07] MEDS ORDERED: BUDESONIDE 0.5 MG/2 ML NEBU INHALATION SCH (08:00)
[2018-02-07] MEDS ORDERED: UMECLIDINIUM BROMIDE 62.5 MCG INHALATION SCH (08:00)
[2018-02-07] MEDS ORDERED: PARoxetine 20 MG TAB PO SCH (09:00)
[2018-02-07] MEDS ORDERED: predniSONE 10 MG TAB PO SCH (09:00)
[2018-02-07] MEDS ORDERED: ALLOPURINOL 100 MG TAB PO SCH (09:00)
[2018-02-07] MEDS ORDERED: CLOPIDOGREL 75 MG TAB PO SCH (09:00)
[2018-02-07] MEDS ORDERED: predniSONE 20 MG TAB PO SCH (09:00)
[2018-02-07] MEDS ORDERED: ASPIRIN 325 MG TAB PO SCH (09:00)
[2018-02-07] MEDS ORDERED: ISOSORBIDE MONONITRATE ER 30 MG TAB.ER.24H PO SCH (09:00)
[2018-02-07] MEDS ORDERED: LORATADINE 10 MG TAB PO SCH (09:00)
[2018-02-07] MEDS ORDERED: MAGNESIUM OXIDE 400 MG TAB PO SCH (09:00)
[2018-02-07] MEDS ORDERED: THEOPHYLLINE 24 HOUR 400 MG CAP.ER.24H PO SCH (09:00)
[2018-02-07] MEDS ORDERED: MONTELUKAST 10 MG TAB PO SCH (09:00)
[2018-02-07 09:26] VITALS: BP 127/81; PULSE 67; RESP 18; TEMP 98.2
[2018-02-07] MEDS: PHENYTOIN SODIUM EXTENDED 100 MG CAP PO SCH (09:29)
[2018-02-07] MEDS: FAMOTIDINE 20 MG TAB PO SCH (09:29)
[2018-02-07] MEDS: FUROSEMIDE 40 MG TAB PO SCH (09:29)
[2018-02-07] MEDS: MYCOPHENOLATE MOFETIL 500 MG TAB PO SCH (09:29)
[2018-02-07] MEDS: METOPROLOL TARTRATE 25 MG TAB PO SCH (09:30)
[2018-02-07] MEDS ORDERED: MORPHINE SULFATE ER 30 MG TABLET PO PRN (12:27)
[2018-02-07] MEDS ORDERED: POTASSIUM CHLORIDE ER 20 MEQ TAB.ER PO SCH (12:30)
--- NOTE | 2018-02-07 12:37 | P.HPIM ---
History of Present Illness H&P Date: 02/07/18 Chief Complaint: Shortness of breath 57-year-old male well-known to the practice who presented to [facility] emergency room with difficulty breathing, acute exacerbation chronic COPD this patient is a well-known steroid-dependent O2 dependent patient with lung disease that as I am aware he is still smoking Spent several minutes counseling this patient developed smoking cessation during this encounter Review of Systems Constitutional: Reports as per HPI Ears, nose, mouth and throat: Reports as per HPI Cardiovascular: Reports as per HPI Respiratory: Reports congestion, Reports cough, Reports dyspnea Genitourinary: Reports as per HPI Musculoskeletal: Reports as per HPI Integumentary: Reports as per HPI Neurological: Reports as per HPI Psychiatric: Reports as per HPI Endocrine: Reports as per HPI Past Medical History Past Medical History: Asthma, Coronary Artery Disease (CAD), Chest Pain / Angina , Heart Failure, COPD, CVA/TIA, GERD/Reflux, Hyperlipidemia, Hypertension, Myocardial Infarction ([place]), Osteoarthritis (OA), Pneumonia, Renal Disease, Seizure Disorder, Sleep Apnea/CPAP/BIPAP Additional Past Medical History / Comment(s): last seizure - 2014, hiatal hernia, chronic back pain, 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, lupus, continuous oxygen use at 3L, no cpap used, kidney failure with hemodilaysis in the past, 3 [place]'s, hypoglycemia Last Myocardial Infarction Date:: 2015 History of Any Multi-Drug Resistant Organisms: None Reported Past Surgical History: Cholecystectomy, Heart Catheterization, Heart Catheterization With Stent, Tonsillectomy Additional Past Surgical History / Comment(s): STATES 3 cardiac stents, Past Anesthesia/Blood Transfusion Reactions: No Reported Reaction Additional Past Anesthesia/Blood Transfusion Reaction / Comment(s): blood transfusion-no reaction, unknown family hx per spouse Date of Last Stent Placement:: 2015 Smoking Status: Current every day smoker - Past Family History Father Family Medical History: Myocardial Infarction ([place]) Mother Family Medical History: Asthma, Cancer, COPD Medications and Allergies Home Medications Medication Instructions Recorded Confirmed Type Albuterol Nebulized [Ventolin 2.5 mg INHALATION RT-QID PRN 04/11/15 02/06/18 History Nebulized] Metoprolol Tartrate [Lopressor] 25 mg PO BID #60 tab 09/18/15 02/06/18 Rx Loratadine [Claritin] 10 mg PO DAILY 05/21/16 02/06/18 History PARoxetine [Paxil] 20 mg PO DAILY 05/21/16 02/06/18 History Phenytoin Sodium Extended 200 mg PO BID 05/21/16 02/06/18 History [Dilantin] Clopidogrel Bisulfate [Clopidogrel] 75 mg PO DAILY 05/22/16 02/06/18 History Calcium Acetate [PhosLo] 667 mg PO TID-W/MEALS #90 cap 07/11/16 02/06/18 Rx Magnesium Oxide [Mag-Ox] 400 mg PO DAILY #30 tablet 07/11/16 02/06/18 Rx Multivit-Mins/Iron/Folic/Lycop 1 tab PO DAILY 07/22/16 02/06/18 History [Centrum Men's Tablet] rOPINIRole HCL [Requip] 1 mg PO BID 08/30/16 02/06/18 History Aspirin 325 mg PO DAILY 09/30/17 02/06/18 History Furosemide [Lasix] 40 mg PO BID 10/02/17 02/06/18 History Atorvastatin [Lipitor] 20 mg PO HS 10/03/17 02/06/18 History Fluticasone Nasal [place] [Flonase 2 spr EA NOSTRIL DAILY PRN 10/03/17 02/07/18 History Nasal [place]] Mycophenolate Mofetil [Cellcept] 1,000 mg PO BID 10/03/17 02/06/18 History Ranitidine HCl 150 mg PO BID 10/03/17 02/06/18 History Theophylline Anhydrous 400 mg PO DAILY 10/03/17 02/06/18 History [Theophylline] predniSONE 5 mg PO DIRECTED 10/03/17 02/06/18 History Allopurinol [Zyloprim] 1 tab PO DAILY 02/04/18 02/06/18 History Beclomethasone Dipropionate [Qvar 2 puff INHALATION RT-BID 02/04/18 02/06/18 History Redihaler] Ergocalciferol (Vitamin D2) 50,000 unit PO Q14D 02/04/18 02/07/18 History [Vitamin D2] Ipratropium [place] [Atrovent Hfa] 2 puff INHALATION RT-QID 02/04/18 02/06/18 History Montelukast [Singulair] 10 mg PO DAILY 02/04/18 02/06/18 History Morphine Sulfate ER [Ms Contin] 30 mg PO Q12HR PRN 02/04/18 02/06/18 History Nitroglycerin Sl Tabs [Nitrostat] 0.4 mg SUBLINGUAL Q5M PRN 02/04/18 02/06/18 History Potassium Chloride [Klor-Con 20] 20 meq PO Q48H 02/04/18 02/06/18 History Potassium Chloride [Klor-Con 20] 40 meq PO Q48H 02/04/18 02/06/18 History Umeclidinium [place] [Incruse 62.5 mcg INHALATION RT-DAILY 02/04/18 02/06/18 History Ellipta] hydrOXYzine PAMOATE [Vistaril] 25 mg PO Q8H PRN 02/04/18 02/07/18 History Isosorbide Mononitrate ER [Imdur] 30 mg PO DAILY #30 tab 02/05/18 02/07/18 Rx predniSONE See Taper PO DIRECTED #30 tab 02/05/18 02/06/18 Rx Allergies Allergy/AdvReac Type Severity Reaction Status Date / Time Penicillins Allergy Severe Swelling Verified 02/06/18 23:28 Iodinated Contrast- Oral and Allergy Swelling Verified 02/06/18 23:28 IV Dye iodine Allergy Itching, Verified 02/06/18 23:28 Hives phenobarbital AdvReac Drowsiness Verified 02/06/18 23:28 Physical Exam Osteopathic Statement: *. No significant issues noted on an osteopathic structural exam other than those noted in the History and Physical/Consult. Vitals: Vital Signs Temp Pulse Pulse Pulse Resp BP BP 02/07/18 08:00 98.2 F 67 18 127/81 02/07/18 04:45 98.4 F 15 142/90 02/07/18 03:14 18 02/06/18 23:30 18 02/06/18 23:02 97.9 F 78 18 138/84 02/06/18 22:35 98.2 F 75 20 140/78 02/06/18 21:40 92 02/06/18 21:20 92 02/06/18 21:00 98.0 F 84 18 136/80 02/06/18 20:53 84 02/06/18 20:20 100.0 F H 82 18 162/93 Pulse Ox 02/07/18 08:00 96 02/07/18 04:45 97 02/07/18 03:14 02/06/18 23:30 02/06/18 23:02 93 L 02/06/18 22:35 98 02/06/18 21:40 02/06/18 21:20 02/06/18 21:00 98 02/06/18 20:53 02/06/18 20:20 92 L Intake and Output 02/06/18 02/07/18 02/07/18 22:59 06:59 14:59 Other: Voiding Method Toilet Toilet Weight 91.172 kg 92.9 kg General: [Patient awake, alert and oriented times 3. Patient in no acute distress.] O2 per nasal cannula routinely HEENT: [PERRL. EOMI. No pharyngeal erythema or exudate.] Neck: [No adenopathy.] Cardiac: [Heart regular in rate and rhythm. No S3. No S4. No clicks, rubs. No murmur.] Lungs: [Clear to auscultation bilaterally.] But diminished bilaterally Abdomen: [No mass. No organomegaly. Bowel sounds presnt and normoactive in all 4 quadrants.] Extremes: [No edema no cyanosis no claudication normal pulses] : [] Musculoskeletal: [No joint erythema, edema or tenderness.] Skin: [No rash.] Neurologic: [No lateralizing deficits. CN II - XII grossly intact.] Lymphatic: [No adenopathy.] Results CBC & Chem 7: 02/06/18 21:03 02/06/18 21:03 Labs: Abnormal Lab Results - Last 24 Hours (Table) 02/06/18 02/06/18 Range/Units 21:03 21:03 WBC 13.4 H (3.8-10.6) k/uL Neutrophils # 9.2 H (1.3-7.7) k/uL Sodium 147 H (137-145) mmol/L Potassium 3.4 L (3.5-5.1) mmol/L Carbon Dioxide 31 H (22-30) mmol/L Glucose 135 H (74-99) mg/dL Total Bilirubin <0.1 L (0.2-1.3) mg/dL Alkaline Phosphatase 135 H (38-126) U/L Total Protein 6.2 L (6.3-8.2) g/dL Thrombosis Risk Factor Assmnt - Choose All That Apply Any of the Below Risk Factors Present?: Yes Each Factor Represents 1 point: Abnormal pulmonary function (COPD), Age 41-60 years, Obesity (BMI >25), Swollen legs (current), Varicose veins Other Risk Factors: No Other congenital or acquired thrombophilia - If yes, enter type in comment: No Thrombosis Risk Factor Assessment Total Risk Factor Score: 5 Thrombosis Risk Factor Assessment Level: High Risk Assessment and Plan (1) COPD (chronic obstructive pulmonary disease) Narrative/Plan: Improved with increase on oral steroids Patient is currently on albuterol updrafts Long-acting beta agonists And started on IV antibiotics Current Visit: Yes Status: Acute Code(s): J44.9 - CHRONIC OBSTRUCTIVE PULMONARY DISEASE, UNSPECIFIED SNOMED Code(s): 36209710 (2) Acute bronchitis Narrative/Plan: Same as above Current Visit: No Status: Acute Code(s): J20.9 - ACUTE BRONCHITIS, UNSPECIFIED SNOMED Code(s): 18523464 Plan: Will discharge patient home today on oral prednisone, albuterol updrafts, long- acting beta agonists, and antibiotic therapy Time with Patient: Greater than 30
[2018-02-07] MEDS ORDERED: FAMOTIDINE 20 MG TAB PO SCH (21:00)
[2018-02-08] MEDS ORDERED: MULTIVITAMINS, THERA 1 EACH TAB PO SCH (12:00)
[2018-02-10] MEDS ORDERED: ERGOCALCIFEROL 50,000 UNIT CAP PO SCH (09:00)
== END 2018-02-07 13:12 | disposition home or self-care (01) ==
LOC: EC 20:15 → 3OBS 20:48
PROVIDERS: ADMIT Family Medicine; ATTEND Family Medicine
DX: J44.0 Chronic obstructive pulmonary disease with (acute) lower respiratory infection (principal); J20.9 Acute bronchitis, unspecified; J44.1 Chronic obstructive pulmonary disease with (acute) exacerbation; E66.9 Obesity, unspecified; Z68.30 Body mass index [BMI] 30.0-30.9, adult; M79.89 Other specified soft tissue disorders; I83.90 Asymptomatic varicose veins of unspecified lower extremity; Z91.041 Radiographic dye allergy status; Z88.0 Allergy status to penicillin; Z88.8 Allergy status to other drugs, medicaments and biological substances; Z91.048 Other nonmedicinal substance allergy status; Z79.899 Other long term (current) drug therapy; Z79.82 Long term (current) use of aspirin; Z79.02 Long term (current) use of antithrombotics/antiplatelets; Z79.51 Long term (current) use of inhaled steroids; Z82.49 Family history of ischemic heart disease and other diseases of the circulatory system; Z80.9 Family history of malignant neoplasm, unspecified; F17.200 Nicotine dependence, unspecified, uncomplicated; I25.10 Atherosclerotic heart disease of native coronary artery without angina pectoris; I50.9 Heart failure, unspecified; Z86.73 Personal history of transient ischemic attack (TIA), and cerebral infarction without residual deficits; K21.9 Gastro-esophageal reflux disease without esophagitis; E78.5 Hyperlipidemia, unspecified; I25.2 Old myocardial infarction; M19.90 Unspecified osteoarthritis, unspecified site; Z87.01 Personal history of pneumonia (recurrent); G40.909 Epilepsy, unspecified, not intractable, without status epilepticus; G47.30 Sleep apnea, unspecified; G89.29 Other chronic pain; M54.9 Dorsalgia, unspecified; M32.9 Systemic lupus erythematosus, unspecified; Z99.81 Dependence on supplemental oxygen; I11.0 Hypertensive heart disease with heart failure; Z79.52 Long term (current) use of systemic steroids; Z91.14 Patient's other noncompliance with medication regimen; Z95.5 Presence of coronary angioplasty implant and graft; Z90.49 Acquired absence of other specified parts of digestive tract; F41.9 Anxiety disorder, unspecified; F32.9 Major depressive disorder, single episode, unspecified
CPT/HCPCS: 99291 ×2; 96365 ×2; 96375 ×3; 96376; 36415; 94644; 93005; 83880; 80053; 83735; 84484; 85025; 85610; 85730; 71046; G0378 ×2; S4990; J2930; J1885 ×2; J7517; J3475; J7512

== ENCOUNTER → 2018-05-06 | Outpatient (CLI) | payer OTHER ==
[2018-05-06 10:42] LABS: Basophils % (A) 0 %; Eosinophils # (A) 0.2 k/uL (0-0.7); Eosinophils % (A) 2 %; HCT 45.5 % (39.0-53.0); HGB 14.7 gm/dL (13.0-17.5); Lymphocytes # (A) 2.2 k/uL (1.0-4.8); Lymphocytes % (A) 20 %; MCH 29.8 pg (25.0-35.0); MCHC 32.3 g/dL (31.0-37.0); MCV 92.4 fL (80.0-100.0); Mean Platelet Volume 7.1; Monocytes # (A) 0.5 k/uL (0-1.0); Monocytes % (A) 5 %; Neutrophils % (A) 72 %; Platelet Count 200 k/uL (150-450); RBC 4.92 m/uL (4.30-5.90); RDW 13.2 % (11.5-15.5); WBC 11.1 k/uL (3.8-10.6)
[2018-05-06 11:15] LABS: ALT 32 U/L (21-72); AST 18 U/L (17-59); Alkaline Phosphatase 165 U/L (38-126); Anion Gap 3 mmol/L; Blood Urea Nitrogen 12 mg/dL (9-20); Calcium 9.5 mg/dL (8.4-10.2); Carbon Dioxide 35 mmol/L (22-30); Chloride 104 mmol/L (98-107); Cholesterol 171 mg/dL (<200); Glucose 119 mg/dL (74-99); HDL Cholesterol 38 mg/dL (40-60); LDL Cholesterol,Calculated 61 mg/dL (0-99); Sodium 142 mmol/L (137-145); Total Bilirubin 0.4 mg/dL (0.2-1.3); Total Protein 6.3 g/dL (6.3-8.2); Triglycerides 358 mg/dL (<150)
[2018-05-06 11:28] LABS: T4, Free (Free Thyroxine) 1.14 ng/dL (0.78-2.19)
[2018-05-06 11:42] LABS: Prostate Specific Antigen 0.58 ng/mL (0.00-4.00)
== END | disposition home or self-care (01) ==
LOC: LABWHC1 10:01
PROVIDERS: ATTEND Family Medicine
DX: Z00.00 Encounter for general adult medical examination without abnormal findings (principal)
CPT/HCPCS: 36415; 80053; 80061; 84153; 84439; 84443; 85025

== ENCOUNTER → 2018-05-22 | Outpatient (CLI) | payer OTHER ==
[2018-05-22 14:39] LABS: HGB 15.5 gm/dL (13.0-17.5); MCH 30.9 pg (25.0-35.0); MCV 93.8 fL (80.0-100.0); Mean Platelet Volume 7.4; Platelet Count 187 k/uL (150-450); RBC 5.01 m/uL (4.30-5.90); RDW 13.5 % (11.5-15.5); WBC 11.1 k/uL (3.8-10.6)
[2018-05-22 14:42] LABS: Appearance,Urine Clear (Clear); Bilirubin,Urine Negative (Negative); Blood,Urine Trace (Negative); Color,Urine Yellow; Glucose,Urine (UA) Negative (Negative); Hyaline Casts,Urine 6 /lpf (0-2); Ketones,Urine Negative (Negative); Leukocyte Esterase,Urine Negative (Negative); Mucus,Urine Rare /hpf; Nitrite,Urine Negative (Negative); Protein,Urine Negative (Negative); RBC,Urine 3 /hpf (0-5); Specific Gravity,Urine 1.012 (1.001-1.035); Urobilinogen,Urine <2.0 mg/dL (<2.0); WBC,Urine 1 /hpf (0-5)
[2018-05-22 14:56] LABS: Creatinine,Urine Random 100.9 mg/dL
[2018-05-22 14:58] LABS: ALT 31 U/L (21-72); AST 17 U/L (17-59); Alkaline Phosphatase 155 U/L (38-126); Anion Gap 4 mmol/L; Blood Urea Nitrogen 13 mg/dL (9-20); Calcium 9.4 mg/dL (8.4-10.2); Carbon Dioxide 35 mmol/L (22-30); Chloride 103 mmol/L (98-107); Glucose 120 mg/dL (74-99); Magnesium 2.2 mg/dL (1.6-2.3); Phosphorus 3.2 mg/dL (2.5-4.5); Potassium 4.6 mmol/L (3.5-5.1); Sodium 142 mmol/L (137-145); Total Bilirubin 0.3 mg/dL (0.2-1.3); Total Protein 6.5 g/dL (6.3-8.2); Uric Acid 5.9 mg/dL (3.5-8.5)
[2018-05-22 18:33] LABS: Iron Saturation 27.78 (15.00-50.00)
[2018-05-22 18:44] LABS: Parathyroid Hormone Intact 42.6 pg/mL (14.0-72.0)
== END | disposition home or self-care (01) ==
LOC: LABWHC1 13:54
PROVIDERS: ATTEND Internal Medicine
DX: N18.2 Chronic kidney disease, stage 2 (mild) (principal); D64.9 Anemia, unspecified; N39.0 Urinary tract infection, site not specified; R80.9 Proteinuria, unspecified; E21.3 Hyperparathyroidism, unspecified; E55.9 Vitamin D deficiency, unspecified; M10.9 Gout, unspecified
CPT/HCPCS: 36415; 80053; 81001; 82306; 82570; 82728; 83540; 83550; 83735; 83970; 84100; 84156; 84550; 85027

== ENCOUNTER → 2018-05-30 | Outpatient (CLI) | payer OTHER ==
--- NOTE | 2018-05-31 20:34 | MR ---
EXAMINATION TYPE: MR knee RT wo con DATE OF EXAM: 05/30/2018 COMPARISON: None HISTORY: 58-year-old male Pain in right knee / OA TECHNIQUE: Multiplanar, multisequence imaging of the right knee is performed without IV contrast. FINDINGS: The ACL, PCL, MCL, and LCL complex is intact. There is a partially discoid lateral meniscus with prominent degenerative signal extending throughout the posterior horn and body but no discrete tear. Mild diffuse thinning of lateral compartment artic ular cartilage volume. There is an undersurface tear involving the posterior horn and body of the medial meniscus with moder ate diffuse thinning of articular cartilage focal deep cartilage fissure along the mid weightbearing aspect of the medial tibial plateau measuring approximately 4 x 5 mm. Small knee joint effusion with trace fluid interposed between the semimembranosus tendon and medial h ead gastrocnemius tendon. No significant Spears's cyst formation at this time. Extensor mechanism is intact. Nonspecific mild prepatellar soft tissue swelling superficial to the p atellar tendon. Mild to moderate patellofemoral compartmental degenerative change characterized by diffuse cartilage thinning and moderate focal cartilage loss along the medial patellar facet. Some additional superfici al cartilage fissures are present along the lateral patellar facet. Normal popliteal artery anatomy with mild diffuse muscular atrophy. No suspicious bone marrow replace ment. IMPRESSION: 1. Undersurface tear involving the posterior horn and body of the medial meniscus. Mild to moderate o verall medial compartment osteoarthrosis. 2. Partially discoid lateral meniscus with degenerative signal throughout the posterior horn and body . No discrete tear at this time. 3. Mild to moderate patellofemoral compartmental osteoarthrosis. 4. Small knee joint effusion.
== END | disposition home or self-care (01) ==
LOC: RADMRIMAIN 11:24
PROVIDERS: ATTEND Orthopaedic Surgery Hand Surgery
DX: S83.281A Other tear of lateral meniscus, current injury, right knee, initial encounter (principal); S83.241A Other tear of medial meniscus, current injury, right knee, initial encounter; M17.11 Unilateral primary osteoarthritis, right knee; G57.81 Other specified mononeuropathies of right lower limb

== ENCOUNTER 2019-08-05 12:45 | Inpatient (IN) | payer OTHER ==
[2019-08-05] MEDS ORDERED: ALBUTEROL NEBULIZED 2.5 MG/3 ML INHALATION STA (13:09)
[2019-08-05] MEDS ORDERED: methylPREDNISolone SOD SUCCI 125 MG/2 ML VIAL IV STA (13:09)
[2019-08-05] MEDS ORDERED: IPRATROPIUM 0.5 MG/2.5 ML NEBU INHALATION STA (13:09)
[2019-08-05] MEDS ORDERED: MAGNESIUM SULFATE-D5W PMX 1 GM in DEXTROSE/WATER 1 100ML.BAG IVPB STA (13:09)
[2019-08-05] MEDS ORDERED: SODIUM CHLORIDE 0.9% 500 ML 500 ML IV STA (13:09)
--- NOTE | 2019-08-05 13:13 | ED ---
General Adult HPI - General Chief complaint: Shortness of Breath Stated complaint: SOB,Vomiting Time Seen by Provider: 08/05/19 12:50 Source: patient, RN notes reviewed, old records reviewed Mode of arrival: ambulatory Limitations: no limitations - History of Present Illness Initial comments: This is a 59-year-old male who presents emergency department with past medical history significant for COPD per patient states he saw his emergency room technician yesterday and the emergency room technician wanted to admit him yesterday but he refused. Patient states today the breathing is gotten worse we decided come to the emergency department. Patient states his been ongoing for over a month now that his breathing is been bad but over the last few days is gotten considerably worse since yesterday much worse. Patient states he is coughing quite a bit and coughing up some sputum. Patient denies any chest pain or palpitations. Patient denies any lightheadedness or dizziness. Patient denies any abdominal pain patient denies nausea vomiting diarrhea. Patient denies any headache patient denies numbness weakness. Patient denies any swelling to her legs or calf tenderness. - Related Data Home Medications Medication Instructions Recorded Confirmed Albuterol Nebulized [Ventolin 2.5 mg INHALATION RT-QID PRN 04/11/15 02/06/18 Nebulized] Loratadine [Claritin] 10 mg PO DAILY 05/21/16 02/06/18 PARoxetine [Paxil] 20 mg PO DAILY 05/21/16 02/06/18 Phenytoin Sodium Extended 200 mg PO BID 05/21/16 02/06/18 [Dilantin] Clopidogrel Bisulfate [Clopidogrel] 75 mg PO DAILY 05/22/16 02/06/18 Multivit-Mins/Iron/Folic/Lycop 1 tab PO DAILY 07/22/16 02/06/18 [Centrum Men's Tablet] rOPINIRole HCL [Requip] 1 mg PO BID 08/30/16 02/06/18 Aspirin 325 mg PO DAILY 09/30/17 02/06/18 Furosemide [Lasix] 40 mg PO BID 10/02/17 02/06/18 Atorvastatin [Lipitor] 20 mg PO HS 10/03/17 02/06/18 Fluticasone Nasal [place] [Flonase 2 spr EA NOSTRIL DAILY PRN 10/03/17 02/07/18 Nasal [place]] Mycophenolate Mofetil [Cellcept] 1,000 mg PO BID 10/03/17 02/06/18 Ranitidine HCl 150 mg PO BID 10/03/17 02/06/18 Theophylline Anhydrous 400 mg PO DAILY 10/03/17 02/06/18 [Theophylline] predniSONE 5 mg PO DIRECTED 10/03/17 02/06/18 Allopurinol [Zyloprim] 1 tab PO DAILY 02/04/18 02/06/18 Beclomethasone Dipropionate [Qvar 2 puff INHALATION RT-BID 02/04/18 02/06/18 40 mcg Redihaler] Ergocalciferol (Vitamin D2) 50,000 unit PO Q14D 02/04/18 02/07/18 [Vitamin D2] Ipratropium [place] [Atrovent Hfa] 2 puff INHALATION RT-QID 02/04/18 02/06/18 Montelukast [Singulair] 10 mg PO DAILY 02/04/18 02/06/18 Morphine Sulfate ER [Ms Contin] 30 mg PO Q12HR PRN 02/04/18 02/06/18 Nitroglycerin Sl Tabs [Nitrostat] 0.4 mg SUBLINGUAL Q5M PRN 02/04/18 02/06/18 Potassium Chloride [Klor-Con 20] 20 meq PO Q48H 02/04/18 02/06/18 Potassium Chloride [Klor-Con 20] 40 meq PO Q48H 02/04/18 02/06/18 Umeclidinium [place] [Incruse 62.5 mcg INHALATION RT-DAILY 02/04/18 02/06/18 Ellipta] hydrOXYzine PAMOATE [Vistaril] 25 mg PO Q8H PRN 02/04/18 02/07/18 Previous Rx's Medication Instructions Recorded Metoprolol Tartrate [Lopressor] 25 mg PO BID #60 tab 09/18/15 Calcium Acetate [PhosLo] 667 mg PO TID-W/MEALS #90 cap 07/11/16 Magnesium Oxide [Mag-Ox] 400 mg PO DAILY #30 tablet 07/11/16 Isosorbide Mononitrate ER [Imdur] 30 mg PO DAILY #30 tab 02/05/18 predniSONE See Taper PO DIRECTED #30 tab 02/05/18 Albuterol Nebulized [Ventolin 2.5 mg INHALATION Q4H 30 Days #120 02/07/18 Nebulized] nebu Allergies Allergy/AdvReac Type Severity Reaction Status Date / Time Penicillins Allergy Severe Swelling Verified 08/05/19 12:51 Iodinated Contrast Media Allergy Swelling Verified 08/05/19 12:51 [Iodinated Contrast- Oral and IV Dye] iodine Allergy Itching, Verified 08/05/19 12:51 Hives phenobarbital AdvReac Drowsiness Verified 08/05/19 12:51 Review of Systems ROS Statement: Those systems with pertinent positive or pertinent negative responses have been documented in the HPI. ROS Other: All systems not noted in ROS Statement are negative. 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, lupus, continuous oxygen use at 3L, no cpap used, kidney failure with hemodilaysis in the past, 3 MA's, hypoglycemia Last Myocardial Infarction Date:: 2015 History of Any Multi-Drug Resistant Organisms: None Reported Past Surgical History: Cholecystectomy, Heart Catheterization, Heart Catheterization With Stent, Tonsillectomy Additional Past Surgical History / Comment(s): STATES 3 cardiac stents, Past Anesthesia/Blood Transfusion Reactions: No Reported Reaction Additional Past Anesthesia/Blood Transfusion Reaction / Comment(s): blood transfusion-no reaction, unknown family hx per spouse Date of Last Stent Placement:: 2016 Past Psychological History: Anxiety, Depression Smoking Status: Current every day smoker Past Alcohol Use History: None Reported Past Drug Use History: None Reported - Past Family History Father Family Medical History: Myocardial Infarction ([place]) Mother Family Medical History: Asthma, Cancer, COPD General Exam - General Exam Comments Initial Comments: GENERAL: Patient is well-developed and well-nourished. Patient is nontoxic and well- hydrated and is in mild distress. ENT: Neck is soft and supple. No significant lymphadenopathy is noted. Oropharynx is clear. Moist mucous membranes. Neck has full range of motion without eliciting any pain. EYES: The sclera were anicteric and conjunctiva were pink and moist. Extraocular movements were intact and pupils were equal round and reactive to light. Eyelids were unremarkable. PULMONARY: Patient is diminished breath sounds diffusely with expiratory wheezing diffuse. CARDIOVASCULAR: There is a regular rate and rhythm without any murmurs gallops or rubs. ABDOMEN: Soft and nontender with normal bowel sounds. No palpable organomegaly was noted. There is no palpable pulsatile mass. SKIN: Skin is clear with no lesions or rashes and otherwise unremarkable. NEUROLOGIC: Patient is alert and oriented x3. Cranial nerves II through XII are grossly intact. Motor and sensory are also intact. Normal speech, volume and content. Symmetrical smile. MUSCULOSKELETAL: Normal extremities with adequate strength and full range of motion. No lower extremity swelling or edema. No calf tenderness. LYMPHATICS: No significant lymphadenopathy is noted PSYCHIATRIC: Normal psychiatric evaluation. Limitations: no limitations Course Vital Signs 08/05/19 08/05/19 08/05/19 12:49 13:19 13:38 Temperature 98 F Pulse Rate 76 78 81 Respiratory 22 Rate Blood Pressure 144/81 O2 Sat by Pulse 96 Oximetry 08/05/19 14:03 Temperature Pulse Rate 75 Respiratory Rate Blood Pressure O2 Sat by Pulse Oximetry Medical Decision Making - Medical Decision Making EKG shows a sinus rhythm with occasional PVC at a rate of 76 bpm MO interval 152 QRS 110 QT interval 36 QTC is 434. Patient's EKG shows no ST segment elevation or depression. Chest x-ray shows acute abnormality. I gave the patient 3 breathing treatments in the emergency department he can still continued to wheeze per patient also received Solu-Medrol. I spoke with Dr. Parul Talavera agreed to admit the patient admitted the patient wrote admitting orders I continue albuterol and steroids in the hospital. I consulted Dr. Durán the emergency room technician - Lab Data Result diagrams: 08/05/19 13:37 08/05/19 13:37 Lab Results 08/05/19 08/05/19 08/05/19 Range/Units 13:37 13:37 13:37 WBC 8.9 (3.8-10.6) k/uL RBC 4.70 (4.30-5.90) m/uL Hgb 14.6 (13.0-17.5) gm/dL Hct 45.1 (39.0-53.0) % MCV 96.0 (80.0-100.0) fL MCH 31.2 (25.0-35.0) pg MCHC 32.5 (31.0-37.0) g/dL RDW 13.3 (11.5-15.5) % Plt Count 185 (150-450) k/uL Neutrophils % 63 % Lymphocytes % 26 % Monocytes % 5 % Eosinophils % 3 % Basophils % 2 % Neutrophils # 5.6 (1.3-7.7) k/uL Lymphocytes # 2.3 (1.0-4.8) k/uL Monocytes # 0.5 (0-1.0) k/uL Eosinophils # 0.3 (0-0.7) k/uL Basophils # 0.2 (0-0.2) k/uL PT 9.6 (9.0-12.0) sec INR 0.9 (<1.2) APTT 24.9 (22.0-30.0) sec Sodium 144 (137-145) mmol/L Potassium 4.2 (3.5-5.1) mmol/L Chloride 106 (98-107) mmol/L Carbon Dioxide 32 H (22-30) mmol/L Anion Gap 6 mmol/L BUN 14 (9-20) mg/dL Creatinine 0.86 (0.66-1.25) mg/dL Est GFR (CKD-EPI)AfAm >90 (>60 ml/min/1.73 sqM) Est GFR (CKD-EPI)NonAf >90 (>60 ml/min/1.73 sqM) Glucose 131 H (74-99) mg/dL Calcium 9.0 (8.4-10.2) mg/dL Magnesium 2.0 (1.6-2.3) mg/dL Total Bilirubin 0.3 (0.2-1.3) mg/dL AST 17 (17-59) U/L ALT 20 L (21-72) U/L Alkaline Phosphatase 149 H (38-126) U/L Troponin I (0.000-0.034) ng/mL NT-Pro-B Natriuret Pep pg/mL Total Protein 6.6 (6.3-8.2) g/dL Albumin 3.9 (3.5-5.0) g/dL 08/05/19 08/05/19 Range/Units 13:37 13:37 WBC (3.8-10.6) k/uL RBC (4.30-5.90) m/uL Hgb (13.0-17.5) gm/dL Hct (39.0-53.0) % MCV (80.0-100.0) fL MCH (25.0-35.0) pg MCHC (31.0-37.0) g/dL RDW (11.5-15.5) % Plt Count (150-450) k/uL Neutrophils % % Lymphocytes % % Monocytes % % Eosinophils % % Basophils % % Neutrophils # (1.3-7.7) k/uL Lymphocytes # (1.0-4.8) k/uL Monocytes # (0-1.0) k/uL Eosinophils # (0-0.7) k/uL Basophils # (0-0.2) k/uL PT (9.0-12.0) sec INR (<1.2) APTT (22.0-30.0) sec Sodium (137-145) mmol/L Potassium (3.5-5.1) mmol/L Chloride (98-107) mmol/L Carbon Dioxide (22-30) mmol/L Anion Gap mmol/L BUN (9-20) mg/dL Creatinine (0.66-1.25) mg/dL Est GFR (CKD-EPI)AfAm (>60 ml/min/1.73 sqM) Est GFR (CKD-EPI)NonAf (>60 ml/min/1.73 sqM) Glucose (74-99) mg/dL Calcium (8.4-10.2) mg/dL Magnesium (1.6-2.3) mg/dL Total Bilirubin (0.2-1.3) mg/dL AST (17-59) U/L ALT (21-72) U/L Alkaline Phosphatase (38-126) U/L Troponin I <0.012 (0.000-0.034) ng/mL NT-Pro-B Natriuret Pep 253 pg/mL Total Protein (6.3-8.2) g/dL Albumin (3.5-5.0) g/dL Critical Care Time Critical Care Time: Yes Total Critical Care Time: 35 Disposition Clinical Impression: COPD with acute exacerbation Disposition: ADMITTED IP TO THIS HOSP Referrals: Damir Teran MD [Primary Care Provider] - 1-2 days Time of Disposition: 15:24
[2019-08-05 14:28] LABS: WBC 8.9 k/uL (3.8-10.6)
[2019-08-05 14:29] LABS: Basophils # (A) 0.2 k/uL (0-0.2); Basophils % (A) 2 %; Eosinophils # (A) 0.3 k/uL (0-0.7); Eosinophils % (A) 3 %; HCT 45.1 % (39.0-53.0); HGB 14.6 gm/dL (13.0-17.5); Lymphocytes # (A) 2.3 k/uL (1.0-4.8); Lymphocytes % (A) 26 %; MCH 31.2 pg (25.0-35.0); MCHC 32.5 g/dL (31.0-37.0); Mean Platelet Volume 7.3; Monocytes # (A) 0.5 k/uL (0-1.0); Monocytes % (A) 5 %; Neutrophils # (A) 5.6 k/uL (1.3-7.7); Neutrophils % (A) 63 %; Platelet Count 185 k/uL (150-450); RDW 13.3 % (11.5-15.5)
[2019-08-05 14:40] LABS: ALT 20 U/L (21-72); AST 17 U/L (17-59); African American GFR (CKD) >90 (>60 ml/min/1.73 sqM); Albumin 3.9 g/dL (3.5-5.0); Alkaline Phosphatase 149 U/L (38-126); Anion Gap 6 mmol/L; Blood Urea Nitrogen 14 mg/dL (9-20); Carbon Dioxide 32 mmol/L (22-30); Chloride 106 mmol/L (98-107); Glucose 131 mg/dL (74-99); Potassium 4.2 mmol/L (3.5-5.1); Sodium 144 mmol/L (137-145); Total Bilirubin 0.3 mg/dL (0.2-1.3); Total Protein 6.6 g/dL (6.3-8.2)
--- NOTE | 2019-08-05 14:45 | XR ---
EXAMINATION TYPE: XR chest 2V DATE OF EXAM: 08/05/2019 COMPARISON: Chest x-ray February 06, 2018 HISTORY: Shortness of breath and cough. TECHNIQUE: Frontal and lateral views of the chest are obtained. FINDINGS: Elevated left hemidiaphragm is now present. There is increased reticular interstitial promi nence bilaterally. There is no new suspicious focal air space opacity, pleural effusion, or pneumotho rax seen. The cardiac silhouette size is stable and upper limits of normal. Degenerative change bila teral shoulders redemonstrated. IMPRESSION: Possible new mild bilateral interstitial edema and/or less likely infiltrates. No new fo darwin consolidation.
[2019-08-05 14:51] LABS: INR 0.9 (<1.2); Partial Thromboplastin Time 24.9 sec (22.0-30.0); Prothrombin Time 9.6 sec (9.0-12.0)
[2019-08-05] MEDS ORDERED: KETOROLAC 30 MG/ML 1 ML VIAL IVP STA (14:51)
[2019-08-05] MEDS ORDERED: IPRATROPIUM-ALBUTEROL 3 ML NEB INHALATION PRN (15:24)
[2019-08-05] MEDS: methylPREDNISolone SOD SUCCI 125 MG/2 ML VIAL IV SCH ×2 (17:46→23:49)
[2019-08-05] MEDS ORDERED: NITROGLYCERIN SL TABS 0.4 MG TAB SUBLINGUAL PRN (17:56)
[2019-08-05] MEDS ORDERED: hydrOXYzine HCL 25 MG TAB PO PRN (17:56)
[2019-08-05 18:55] VITALS: BMI 32.5
[2019-08-05] MEDS: FLUTICASONE 110 MCG INHALER INHALATION SCH (19:44)
[2019-08-05] MEDS: IPRATROPIUM-ALBUTEROL 3 ML NEB INHALATION SCH ×2 (19:44→23:26)
[2019-08-05] MEDS: FUROSEMIDE 80 MG TAB PO SCH (19:56)
[2019-08-05] MEDS: ATORVASTATIN 20 MG TAB PO SCH (20:50)
[2019-08-05] MEDS: METOPROLOL TARTRATE 25 MG TAB PO SCH (20:50)
[2019-08-05] MEDS: PHENYTOIN SODIUM EXTENDED 100 MG CAP PO SCH (20:50)
[2019-08-05] MEDS: PREGABALIN 75 MG CAP PO SCH (20:50)
[2019-08-05] MEDS: MYCOPHENOLATE MOFETIL 500 MG TAB PO SCH (20:51)
[2019-08-05] MEDS: HYDROcodone/APAP 10-325MG 1 EACH TAB PO PRN (20:55)
[2019-08-06] MEDS: HYDROcodone/APAP 10-325MG 1 EACH TAB PO PRN ×4 (03:45→21:25)
[2019-08-06] MEDS: IPRATROPIUM-ALBUTEROL 3 ML NEB INHALATION SCH ×6 (03:57→23:04)
[2019-08-06] MEDS: methylPREDNISolone SOD SUCCI 125 MG/2 ML VIAL IV SCH ×4 (06:19→23:10)
[2019-08-06] MEDS: CALCIUM ACETATE 667 MG TAB PO SCH (07:58)
[2019-08-06] MEDS: PANTOPRAZOLE 40 MG TABLET PO SCH (07:59)
[2019-08-06] MEDS: FLUTICASONE 110 MCG INHALER INHALATION SCH ×2 (08:26→19:10)
[2019-08-06] MEDS: VARENICLINE 1 MG TAB PO SCH (09:38)
[2019-08-06] MEDS: FLUTICASONE 50MCG/SPRAY NASAL 16GM EA NOSTRIL SCH (09:38)
[2019-08-06] MEDS: PARoxetine 20 MG TAB PO SCH (09:39)
[2019-08-06] MEDS: CLOPIDOGREL 75 MG TAB PO SCH (09:42)
[2019-08-06] MEDS: PHENYTOIN SODIUM EXTENDED 100 MG CAP PO SCH ×2 (09:42→20:29)
[2019-08-06] MEDS: MAGNESIUM OXIDE 400 MG TAB PO SCH (09:42)
[2019-08-06] MEDS: FUROSEMIDE 80 MG TAB PO SCH ×2 (09:42→15:36)
[2019-08-06] MEDS: ISOSORBIDE MONONITRATE ER 30 MG TAB.ER.24H PO SCH (09:42)
[2019-08-06] MEDS: THEOPHYLLINE 24 HOUR 400 MG CAP.ER.24H PO SCH (09:42)
[2019-08-06] MEDS: POTASSIUM CHLORIDE ER 20 MEQ TAB.ER PO SCH (09:43)
[2019-08-06] MEDS: METOPROLOL TARTRATE 25 MG TAB PO SCH ×2 (09:43→20:28)
[2019-08-06] MEDS: PREGABALIN 75 MG CAP PO SCH ×2 (09:43→20:29)
[2019-08-06] MEDS: MYCOPHENOLATE MOFETIL 500 MG TAB PO SCH ×2 (09:50→20:30)
--- NOTE | 2019-08-06 13:17 | P.HPIM ---
History of Present Illness H&P Date: 08/06/19 Chief Complaint: Dyspnea, shortness of breath 59-year-old patient of Dr. 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 Patient states she is then worse and decided to present to the emergency room states this is been ongoing for a month or so and his breathing is been [place] last few days his current considerably worse. States she is coughing productive cough. Denies chest pain or palpitations denies lightheadedness or dizziness Review of Systems Constitutional: Reports as per HPI Ears, nose, mouth and throat: Reports as per HPI Cardiovascular: Reports lightheadedness, Reports shortness of breath Respiratory: Reports congestion, Reports cough, Reports cough with sputum, Reports snoring (Currently uses BiPAP) Gastrointestinal: Reports as per HPI Genitourinary: Reports as per HPI Musculoskeletal: Reports as per HPI Integumentary: Reports as per HPI Neurological: Reports as per HPI Psychiatric: Reports as per HPI Past Medical History Past Medical History: Asthma, Coronary Artery Disease (CAD), Chest Pain / Angina, Heart Failure, COPD, CVA/TIA, GERD/Reflux, Hyperlipidemia, Hypertension, Myocardial Infarction ([place]), Osteoarthritis (OA), Pneumonia, Renal Disease, Seizure Disorder, Sleep Apnea/CPAP/BIPAP Additional Past Medical History / Comment(s): last seizure - 2014, hiatal hernia, chronic back pain, 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, lupus, continuous oxygen use at 3L, no cpap used, kidney failure with hemodilaysis in the past, 3 VT's, hypoglycemia Last Myocardial Infarction Date:: 2015 History of Any Multi-Drug Resistant Organisms: None Reported Past Surgical History: Cholecystectomy, Heart Catheterization, Heart Catheterization With Stent, Tonsillectomy Additional Past Surgical History / Comment(s): STATES 3 cardiac stents, Past Anesthesia/Blood Transfusion Reactions: No Reported Reaction Additional Past Anesthesia/Blood Transfusion Reaction / Comment(s): blood transfusion-no reaction, unknown family hx per spouse Date of Last Stent Placement:: 2015 Smoking Status: Current every day smoker - Past Family History Father Family Medical History: Myocardial Infarction ([place]) Mother Family Medical History: Asthma, Cancer, COPD Medications and Allergies Home Medications Medication Instructions Recorded Confirmed Type Metoprolol Tartrate [Lopressor] 25 mg PO BID #60 tab 09/18/15 08/05/19 Rx Loratadine [Claritin] 10 mg PO DAILY 05/21/16 08/05/19 History PARoxetine [Paxil] 20 mg PO DAILY 05/21/16 08/05/19 History Phenytoin Sodium Extended 200 mg PO BID 05/21/16 08/05/19 History [Dilantin] Clopidogrel Bisulfate [Clopidogrel] 75 mg PO DAILY 05/22/16 08/05/19 History Magnesium Oxide [Mag-Ox] 400 mg PO DAILY #30 tablet 07/11/16 08/05/19 Rx rOPINIRole HCL [Requip] 1 mg PO BID 08/30/16 08/05/19 History Atorvastatin [Lipitor] 20 mg PO HS 10/03/17 08/05/19 History Fluticasone Nasal [place] [Flonase 1 spray EA NOSTRIL DAILY 10/03/17 08/05/19 History Nasal [place]] Mycophenolate Mofetil [Cellcept] 1,000 mg PO DAILY 10/03/17 08/05/19 History Ranitidine HCl 150 mg PO BID 10/03/17 08/05/19 History Theophylline Anhydrous 400 mg PO DAILY 10/03/17 08/05/19 History [Theophylline] predniSONE 5 mg PO DAILY 10/03/17 08/05/19 History Allopurinol [Zyloprim] 100 mg PO Q48H 02/04/18 08/05/19 History Ergocalciferol (Vitamin D2) 50,000 unit PO Q14D 02/04/18 08/05/19 History [Vitamin D2] Montelukast [Singulair] 10 mg PO DAILY@1500 02/04/18 08/05/19 History Nitroglycerin Sl Tabs [Nitrostat] 0.4 mg SUBLINGUAL Q5M PRN 02/04/18 08/05/19 History Potassium Chloride [Klor-Con 20] 20 meq PO Q48H 02/04/18 08/05/19 History Potassium Chloride [Klor-Con 20] 40 meq PO Q48H 02/04/18 08/05/19 History Umeclidinium [place] [Incruse 1 puff INHALATION RT-DAILY 02/04/18 08/05/19 History Ellipta] Isosorbide Mononitrate ER [Imdur] 30 mg PO DAILY #30 tab 02/05/18 08/05/19 Rx Albuterol Inhaler [Ventolin Hfa 2 puff INHALATION RT-QID PRN 08/05/19 08/05/19 History Inhaler] Albuterol Nebulized [Ventolin 2.5 mg INHALATION RT-QID PRN 08/05/19 08/05/19 History Nebulized] Beclomethasone Dip 80 Mcg/Puff 2 puff INHALATION RT-BID 08/05/19 08/05/19 History [Qvar 80 mcg] Calcium Acetate [PhosLo] 667 mg PO DAILY 08/05/19 08/05/19 History Furosemide [Lasix] 80 mg PO BID 08/05/19 08/05/19 History HYDROcodone/APAP 10-325MG [[place] 1 tab PO Q6H PRN 08/05/19 08/05/19 History 10-325] Mycophenolate Mofetil [Cellcept] 500 mg PO HS 08/05/19 08/05/19 History Pregabalin [Lyrica] 150 mg PO BID 08/05/19 08/05/19 History Varenicline [Chantix Continuing 0.5 mg PO DAILY 08/05/19 08/05/19 History Pack] hydrOXYzine HCL [Atarax] 25 mg PO Q8H PRN 08/05/19 08/05/19 History Allergies Allergy/AdvReac Type Severity Reaction Status Date / Time Penicillins Allergy Severe Swelling Verified 08/05/19 12:51 Iodinated Contrast Media Allergy Swelling Verified 08/05/19 12:51 [Iodinated Contrast- Oral and IV Dye] iodine Allergy Itching, Verified 08/05/19 12:51 Hives phenobarbital AdvReac Drowsiness Verified 08/05/19 12:51 Physical Exam Osteopathic Statement: *. No significant issues noted on an osteopathic structural exam other than those noted in the History and Physical/Consult. Vitals: Vital Signs Temp Pulse Pulse Resp BP BP Pulse Ox 08/06/19 11:48 98.1 F 88 18 126/73 94 L 08/06/19 11:47 80 08/06/19 11:37 72 08/06/19 08:40 88 08/06/19 08:27 88 08/06/19 08:00 63 20 08/06/19 07:18 97.6 F 63 20 135/69 96 08/06/19 04:41 97.5 F L 68 20 107/62 93 L 08/06/19 04:07 87 08/06/19 03:57 84 08/05/19 23:37 84 08/05/19 23:26 80 08/05/19 21:34 95 08/05/19 21:00 98.5 F 82 20 106/56 08/05/19 19:56 90 18 08/05/19 19:44 89 18 08/05/19 17:28 97.3 F L 68 17 115/60 93 L 08/05/19 16:10 94 L 08/05/19 15:38 97.8 F 73 18 108/64 94 L 08/05/19 14:03 75 08/05/19 13:38 81 08/05/19 13:19 78 Intake and Output 08/05/19 08/06/19 08/06/19 22:59 06:59 14:59 Intake Total 1800 Balance 1800 Intake: Oral 1800 Other: Voiding Method Toilet Toilet # Voids 2 2 Weight 101.151 kg 102.228 kg General: [Patient awake, alert and oriented times 3. Patient in no acute distress.] HEENT: [PERRL. EOMI. No pharyngeal erythema or exudate.] Neck: [No adenopathy.] Cardiac: [Heart regular in rate and rhythm. No S3. No S4. No clicks, rubs. No murmur.] Lungs: Diminished breath sounds bilaterally with diffuse expirational wheezes bilaterally Abdomen: [No mass. No organomegaly. Bowel sounds presnt and normoactive in all 4 quadrants.] Extremes: [No edema no cyanosis no claudication normal pulses] : [] Musculoskeletal: [No joint erythema, edema or tenderness.] Skin: [No rash.] Neurologic: [No lateralizing deficits. CN II - XII grossly intact.] Lymphatic: [No adenopathy.] Results CBC & Chem 7: 08/05/19 13:37 08/05/19 13:37 Labs: Abnormal Lab Results - Last 24 Hours (Table) 08/05/19 Range/Units 13:37 Carbon Dioxide 32 H (22-30) mmol/L Glucose 131 H (74-99) mg/dL ALT 20 L (21-72) U/L Alkaline Phosphatase 149 H (38-126) U/L Thrombosis Risk Factor Assmnt - Choose All That Apply Any of the Below Risk Factors Present?: Yes Each Factor Represents 1 point: Abnormal pulmonary function (COPD), Age 41-60 years, Obesity (BMI >25) Other Risk Factors: Yes Each Risk Factor Represents 3 Points: History of DVT/PE Other congenital or acquired thrombophilia - If yes, enter type in comment: No Thrombosis Risk Factor Assessment Total Risk Factor Score: 6 Thrombosis Risk Factor Assessment Level: High Risk Assessment and Plan (1) COPD with acute exacerbation Current Visit: Yes Status: Acute Code(s): J44.1 - CHRONIC OBSTRUCTIVE PULMONARY DISEASE W (ACUTE) EXACERBATION SNOMED Code(s): 238401475 (2) Acute exacerbation of chronic obstructive airways disease Current Visit: No Status: Acute Code(s): J44.1 - CHRONIC OBSTRUCTIVE PULMONARY DISEASE W (ACUTE) EXACERBATION SNOMED Code(s): 126843460 Plan: Acute exacerbation of chronic COPD We'll admit patient to the hospital Resume home meds IV steroids 60 every 6 DuoNeb updrafts every 6 hours when necessary Consult his seamer panty hose We'll follow closely Time with Patient: Greater than 30
[2019-08-06] MEDS ORDERED: ERGOCALCIFEROL 50,000 UNIT CAP PO SCH (15:00)
[2019-08-06] MEDS: LEVOFLOXACIN 500MG-D5W PMX 500 MG in DEXTROSE/WATER 1 100ML.BAG IVPB SCH (15:36)
[2019-08-06] MEDS: NICOTINE 21MG/24HR PATCH TRANSDERM SCH (15:36)
[2019-08-06] MEDS: MONTELUKAST 10 MG TAB PO SCH (15:36)
--- NOTE | 2019-08-06 16:36 | CT ---
EXAMINATION TYPE: CT chest wo con DATE OF EXAM: 08/06/2019 COMPARISON: 06/28/2016 HISTORY: 59-year-old male Shortness of breath. TECHNIQUE: Contiguous axial scanning of the chest without IV contrast. Coronal and sagittal reconstru ctions performed. CT DLP: 560.5 mGycm Automated exposure control for dose reduction was used. FINDINGS: Heart upper limits of normal in size without pericardial effusion. Three-vessel coronary artery calci fications are present. Borderline ectasia ascending aorta at 3.6 cm with mild to moderate atherosclerotic arch calcification s and conventional branching anatomy. No thoracic lymphadenopathy by CT size criteria. Mild centrilobular emphysema. Some stranding patchy bibasilar opacities likely representing areas of atelectasis. More confluent areas such as at the peripheral right base, axial image 43. No pleural ef fusion. Prominent ingested debris distending the stomach. Cholecystectomy clips. Bones: Endplate spondylosis mid to lower thoracic spine. Mild superior endplate deformity of T3 is ol d and stable. IMPRESSION: 1. COPD WITH MILD EMPHYSEMA. 2. THREE-VESSEL CAD. 3. SOME STRANDY AND PATCHY BIBASILAR OPACITIES LIKELY REPRESENTING AREAS OF ATELECTASIS. A MORE CONFL UENT AREA AT THE PERIPHERAL RIGHT BASE COULD ALSO REPRESENT ATELECTASIS. CORRELATE FOR ANY INFECTIOUS SIGNS OR SYMPTOMS TO EXCLUDE EARLY PNEUMONIA HERE.
[2019-08-06] MEDS: BUDESONIDE 0.5 MG/2 ML NEBU INHALATION SCH (19:10)
[2019-08-06] MEDS: HEPARIN SODIUM,PORCINE 5,000 UNIT/ML 1 ML VIAL SQ SCH (20:28)
[2019-08-06] MEDS: ATORVASTATIN 20 MG TAB PO SCH (20:30)
--- NOTE | 2019-08-06 21:46 | CONS ---
CONSULTATION HISTORY OF PRESENT ILLNESS: The patient is a 59-year-old male with a history of chronic obstructive pulmonary disease and asthma. The patient was seen in the office by Dr. Durán 2 days ago and was having shortness of breath with cough at that time and instructed to go to the ER, however, the patient wanted to wait hoping he would feel better and did not go to the ER at that time. Yesterday, patient's shortness of breath was considerably worse. Patient states that he had vomited the last 3 nights in his sleep and found that he was sleeping on his back. Subsequently, the patient came to the emergency room for further evaluation and treatment and was admitted for acute exacerbation of chronic obstructive pulmonary disease. PAST MEDICAL HISTORY: Significant for asthma, CAD, heart failure, COPD, CVA, TIA, GERD, hyperlipidemia, hypertension, NC, osteoarthritis, kidney disease, seizure disorder, obstructive sleep apnea, untreated. The patient cannot wear CPAP or BiPAP. States that it almost killed him, chronic back pain, lupus, oxygen dependency, 3 L of O2 at home. PAST SURGICAL HISTORY: Significant for cholecystectomy, tonsillectomy, hemorrhoidectomy, and heart catheterization numerous occasions and has 3 heart stents. ALLERGIES: INCLUDE PENICILLIN, IV DYE, IODINE, AND PHENOBARBITAL. MEDICATIONS: Patient is on at home include Requip 1 mg p.o. b.i.d., prednisone 5 mg p.o. daily, Atarax 25 mg p.o. q.8 hours p.r.n., Chantix, continuing pack 0.5 mg p.o. daily, Incruse Ellipta 1 puff daily. Theophylline 400 mg p.o. daily. Ranitidine 150 mg p.o. b.i.d., Lyrica 150 mg p.o. b.i.d., Klor-Con 20 mEq 40 p.o. Q 48 hours and 20 p.o. Q 48 hours, Dilantin 200 mg p.o. b.i.d., Paxil 20 mg p.o. daily, Nitrostat 0.4 mg sublingual q.5 hours minutes p.r.n. chest pain, CellCept 500 mg p.o. q.h.s. and 1000 mg p.o. daily, Singulair 10 mg p.o. daily, Lopressor 25 mg p.o. b.i.d., Mag-Ox 400 mg p.o. daily, Claritin 10 mg p.o. daily, Imdur 30 mg p.o. daily. [place] 10/325 one tab p.o. q.6 hours p.r.n., Lasix 80 mg p.o. b.i.d., Flonase 1 spray each nostril daily, vitamin D2, 50,000 units p.o. every 14 days, Plavix 75 mg p.o. daily. PhosLo 667 mg p.o. daily, QVAR 80 mics 2 puffs b.i.d., Lipitor 20 mg p.o. q.h.s., Zyloprim 100 mg p.o. Q 48 hours, albuterol via nebulizer 2.5 mg q.i.d. p.r.n. and Ventolin HFA 2 puffs q.i.d. p.r.n. FAMILY HISTORY: The patient's father at the age of 71 from lung cancer. Also with history of asthma and COPD. Father at the age of 56 from an NC. SOCIAL HISTORY: The patient does have a history of smoking times 47 years, up to 6 packs per day. The patient currently is down to 10 cigarettes a day. Denies any alcohol use. Denies any illicit drug use. Does have a cat at home. REVIEW OF SYSTEMS: General is negative for any or fever or chills. HEENT denies headache or lightheadedness. Occasional dizziness. Denies acute visual changes. No difficulty hearing. RESPIRATORY: Positive for worsening shortness of breath and nonproductive cough with a history of asthma. Cardiovascular negative for chest pain or palpitations. GI negative for abdominal pain, nausea, vomiting, or diarrhea. Although patient does verbalize having vomited 3 times on 3 different nights in his sleep. was negative for hematuria or dysuria. Endocrine negative for diabetes mellitus or thyroid disease. Musculoskeletal is positive for osteoarthritis and joint pain. Neurologic is positive for history of seizures and nerve pain. Psychiatric is positive for anxiety and depression. PHYSICAL EXAM: General is a 59-year-old male seen sitting up at the bedside. Awake, alert, appears stated age. Vital signs: Temp 98.1, heart rate is 80, respiratory rate 18, blood pressure is 126/73, O2 sats 94% on 3 L O2 via nasal cannula. HEENT. Head is normocephalic, atraumatic. Pupils equal, round, react to light. Ears, nose no discharge is noted. Mouth with dry mucous membranes. Mallampati is class 4. Neck is short, thick and supple. Trachea is midline. LUNGS: With diminished breath sounds throughout with prolonged expiratory phase. HEART: S1, S2 are heard. Not tachycardic. ABDOMEN: Soft, obese. Bowel sounds are heard. EXTREMITIES with no edema. NEUROLOGIC: Patient is awake and alert. LABS: White count is 8.9, hemoglobin is 14.6, hematocrit 45.1 with 185,000 platelets. PT is 9.6, INR 0.9, PTT is 24.9, sodium is 144, potassium is 4.2, chloride is 106, CO2 is 32, anion gap is 6, BUN is 14, creatinine 0.86, glucose 131, calcium 9.0, magnesium 2.0, total bilirubin 0.3, AST is 17. ALT is 20, alkaline phosphatase is 149. Troponin is less than 0.012. BNP is 253. Total protein 6.6, albumin is 3.9. IMAGING: Chest x-ray shows an elevated left hemidiaphragm is now present, possible new mild bilateral interstitial edema and/or less likely infiltrates. No new focal consolidation. IMPRESSION: 1. Acute exacerbation of chronic obstructive pulmonary disease and asthma. 2. Possible aspiration pneumonia. 3. Nicotine dependence. 4. History of obstructive sleep apnea, untreated. 5. Coronary artery disease. PLAN: Oxygen to maintain saturations greater than equal to 90%. Bronchodilators, will add aerosol steroids. Continue IV Solu-Medrol 60 mg IV q.6 hours. Add Levaquin 500 mg IV daily. Add incentive spirometry with pulmonary hygiene. Check a CT of the chest without contrast. Add heparin 5000 units subcu b.i.d. for DVT prophylaxis. Smoking cessation was reviewed and highly recommended. Thank you for the consultation. We will follow patient closely with you making further changes as necessary. I performed a History & Physical Examination of the patient and discussed their management with nurse practitioner. I reviewed the nurse practitioner's note and agree with the documented findings and plan of care. MMODL / IJN: [id number] /
[2019-08-07] MEDS: HYDROcodone/APAP 10-325MG 1 EACH TAB PO PRN ×4 (03:29→22:01)
[2019-08-07] MEDS: IPRATROPIUM-ALBUTEROL 3 ML NEB INHALATION SCH ×6 (04:06→23:33)
[2019-08-07] MEDS: methylPREDNISolone SOD SUCCI 125 MG/2 ML VIAL IV SCH ×4 (05:05→23:33)
[2019-08-07] MEDS: FLUTICASONE 110 MCG INHALER INHALATION SCH (07:55)
[2019-08-07] MEDS: BUDESONIDE 0.5 MG/2 ML NEBU INHALATION SCH ×2 (07:56→20:35)
[2019-08-07] MEDS: VARENICLINE 1 MG TAB PO SCH (08:28)
[2019-08-07] MEDS: THEOPHYLLINE 24 HOUR 400 MG CAP.ER.24H PO SCH (08:30)
[2019-08-07] MEDS: ISOSORBIDE MONONITRATE ER 30 MG TAB.ER.24H PO SCH (08:30)
[2019-08-07] MEDS: METOPROLOL TARTRATE 25 MG TAB PO SCH ×2 (08:30→21:45)
[2019-08-07] MEDS: PREGABALIN 75 MG CAP PO SCH ×2 (08:30→21:58)
[2019-08-07] MEDS: PHENYTOIN SODIUM EXTENDED 100 MG CAP PO SCH ×2 (08:31→21:59)
[2019-08-07] MEDS: ALLOPURINOL 100 MG TAB PO SCH (08:31)
[2019-08-07] MEDS: PARoxetine 20 MG TAB PO SCH (08:31)
[2019-08-07] MEDS: CLOPIDOGREL 75 MG TAB PO SCH (08:31)
[2019-08-07] MEDS: FLUTICASONE 50MCG/SPRAY NASAL 16GM EA NOSTRIL SCH (08:31)
[2019-08-07] MEDS: CALCIUM ACETATE 667 MG TAB PO SCH (08:31)
[2019-08-07] MEDS: FUROSEMIDE 80 MG TAB PO SCH ×2 (08:31→16:50)
[2019-08-07] MEDS: MYCOPHENOLATE MOFETIL 500 MG TAB PO SCH ×2 (08:31→21:58)
[2019-08-07] MEDS: MAGNESIUM OXIDE 400 MG TAB PO SCH (08:31)
[2019-08-07] MEDS: PANTOPRAZOLE 40 MG TABLET PO SCH (08:31)
[2019-08-07] MEDS: POTASSIUM CHLORIDE ER 20 MEQ TAB.ER PO SCH (08:31)
[2019-08-07] MEDS: HEPARIN SODIUM,PORCINE 5,000 UNIT/ML 1 ML VIAL SQ SCH ×2 (08:32→21:45)
[2019-08-07] MEDS: NICOTINE 21MG/24HR PATCH TRANSDERM SCH (08:32)
--- NOTE | 2019-08-07 12:25 | P.PN ---
Subjective Progress Note Date: 08/07/19 Principal diagnosis: Acute exacerbation chronic COPD Patient awake oriented alert, no new complaints patient is currently afebrile vital signs stable Breath sounds improved currently getting IV Levaquin IV prednisone and DuoNeb updraft treatments Objective - Vital Signs Vital signs: Vital Signs Temp 98 F 08/07/19 11:21 Pulse 92 08/07/19 11:25 Resp 20 08/07/19 11:21 BP 110/69 08/07/19 11:21 Pulse Ox 97 08/07/19 11:21 Intake & Output 08/06/19 08/07/19 08/07/19 18:59 06:59 18:59 Intake Total 240 Balance 240 Weight 103.5 kg Intake: Oral 240 Other: Voiding Method Toilet Toilet Toilet # Voids 3 1 # Bowel Movements 1 - Exam General: [Patient awake, alert and oriented times 3. Patient in no acute dist ress.] HEENT: [PERRL. EOMI. No pharyngeal erythema or exudate.] Neck: [No adenopathy.] Cardiac: [Heart regular in rate and rhythm. No S3. No S4. No clicks, rubs. No murmur.] Lungs: Breath sounds diminished bilaterally bilateral rhonchi Abdomen: [No mass. No organomegaly. Bowel sounds presnt and normoactive in all 4 quadrants.] Extremes: [No edema no cyanosis no claudication normal pulses] : [] Musculoskeletal: [No joint erythema, edema or tenderness.] Skin: [No rash.] Neurologic: [No lateralizing deficits. CN II - XII grossly intact.] Lymphatic: [No adenopathy.] - Labs CBC & Chem 7: 08/05/19 13:37 08/05/19 13:37 Assessment and Plan (1) COPD with acute exacerbation Current Visit: Yes Status: Acute Code(s): J44.1 - CHRONIC OBSTRUCTIVE PULMONARY DISEASE W (ACUTE) EXACERBATION SNOMED Code(s): 305094390 (2) Acute exacerbation of chronic obstructive airways disease Current Visit: No Status: Acute Code(s): J44.1 - CHRONIC OBSTRUCTIVE PULMONARY DISEASE W (ACUTE) EXACERBATION SNOMED Code(s): 428256892 Plan: Acute exacerbation of chronic COPD We'll admit patient to the hospital Resume home meds IV steroids 60 every 6 DuoNeb updrafts every 6 hours when necessary IV Levaquin Sats on room air 91-92% We'll follow closely Time with Patient: Greater than 30
--- NOTE | 2019-08-07 15:47 | PN ---
PROGRESS NOTE DATE OF SERVICE: 08/07/2019 He is less short of breath, but not back to his baseline. He is sitting in bed. He is not in any distress. PHYSICAL EXAMINATION: The blood pressure is 110/69, respiratory rate of 20, pulse rate of 73, temperature 98 degrees Fahrenheit, O2 saturation on room air is 97%. HEENT: Unremarkable. Chest reveals prolonged exhalation with expiratory wheeze on forced exhalation. Cardiovascular system reveals an S1, S2. Abdomen is soft. There is trace pedal edema. CT scan of the chest was done which showed evidence of patchy bibasilar opacities consistent with atelectasis and emphysematous changes. IMPRESSION: 1. Severe asthma that is persistent with acute exacerbation. 2. Chronic obstructive pulmonary disease. 3. Possible aspiration type pneumonia. Continue IV steroids, Levaquin, GI and DVT prophylaxis and bronchodilators. Will continue IV steroids at this time and hopefully switch him to oral steroids tomorrow if he is otherwise stable. He was counseled regarding his condition and this approach. MMODL / IJN: [id number] /
[2019-08-07] MEDS: LEVOFLOXACIN 500MG-D5W PMX 500 MG in DEXTROSE/WATER 1 100ML.BAG IVPB SCH (16:50)
[2019-08-07] MEDS: MONTELUKAST 10 MG TAB PO SCH (16:51)
[2019-08-07] MEDS: ATORVASTATIN 20 MG TAB PO SCH (21:44)
[2019-08-08] MEDS: IPRATROPIUM-ALBUTEROL 3 ML NEB INHALATION SCH ×6 (03:25→23:59)
[2019-08-08] MEDS: methylPREDNISolone SOD SUCCI 125 MG/2 ML VIAL IV SCH ×2 (05:13→11:42)
[2019-08-08] MEDS: HYDROcodone/APAP 10-325MG 1 EACH TAB PO PRN ×4 (05:13→23:49)
[2019-08-08] MEDS: METOPROLOL TARTRATE 25 MG TAB PO SCH ×2 (07:40→21:02)
[2019-08-08] MEDS: POTASSIUM CHLORIDE ER 20 MEQ TAB.ER PO SCH (07:40)
[2019-08-08] MEDS: PREGABALIN 75 MG CAP PO SCH ×2 (07:40→21:02)
[2019-08-08] MEDS: FUROSEMIDE 80 MG TAB PO SCH ×2 (07:40→15:42)
[2019-08-08] MEDS: MAGNESIUM OXIDE 400 MG TAB PO SCH (07:40)
[2019-08-08] MEDS: PANTOPRAZOLE 40 MG TABLET PO SCH (07:40)
[2019-08-08] MEDS: CALCIUM ACETATE 667 MG TAB PO SCH (07:40)
[2019-08-08] MEDS: CLOPIDOGREL 75 MG TAB PO SCH (07:41)
[2019-08-08] MEDS: MYCOPHENOLATE MOFETIL 500 MG TAB PO SCH ×2 (07:41→21:02)
[2019-08-08] MEDS: THEOPHYLLINE 24 HOUR 400 MG CAP.ER.24H PO SCH (07:41)
[2019-08-08] MEDS: ISOSORBIDE MONONITRATE ER 30 MG TAB.ER.24H PO SCH (07:41)
[2019-08-08] MEDS: PARoxetine 20 MG TAB PO SCH (07:41)
[2019-08-08] MEDS: PHENYTOIN SODIUM EXTENDED 100 MG CAP PO SCH ×2 (07:41→21:02)
[2019-08-08] MEDS: NICOTINE 21MG/24HR PATCH TRANSDERM SCH (07:41)
[2019-08-08] MEDS: FLUTICASONE 50MCG/SPRAY NASAL 16GM EA NOSTRIL SCH (07:42)
[2019-08-08] MEDS: HEPARIN SODIUM,PORCINE 5,000 UNIT/ML 1 ML VIAL SQ SCH ×2 (07:43→21:02)
[2019-08-08] MEDS: BUDESONIDE 0.5 MG/2 ML NEBU INHALATION SCH ×2 (09:05→20:22)
--- NOTE | 2019-08-08 12:21 | P.PN ---
Subjective Progress Note Date: 08/08/19 Principal diagnosis: Acute exacerbation chronic COPD Patient awake oriented alert, no new complaints patient is currently afebrile vital signs stable Breath sounds improved currently getting IV Levaquin IV prednisone and DuoNeb updraft treatments 08/08/2019 patient awake alert oriented 3 vital stable patient afebrile, respiratory efforts again significantly improved continuing updrafts anticipate discharge on the legs 24-48 hours Objective - Vital Signs Vital signs: Vital Signs Temp 97.4 F L 08/08/19 11:10 Pulse 74 08/08/19 11:10 Resp 18 08/08/19 11:10 BP 139/82 08/08/19 11:10 Pulse Ox 92 L 08/08/19 11:10 Intake & Output 08/07/19 08/08/19 08/08/19 18:59 06:59 18:59 Intake Total 240 940 Balance 240 940 Weight 103.419 kg Intake: Intake, IV Titration 100 Amount Levofloxacin 500Mg-D5w 100 Pmx 500 mg In Dextrose/ Water 1 100ml.bag @ 100 mls/hr IVPB Q24H [facility] Rx#: [id number] Oral 240 840 Other: Voiding Method Toilet Toilet Toilet # Voids 3 3 - Exam General: [Patient awake, alert and oriented times 3. Patient in no acute distress.] HEENT: [PERRL. EOMI. No pharyngeal erythema or exudate.] Neck: [No adenopathy.] Cardiac: [Heart regular in rate and rhythm. No S3. No S4. No clicks, rubs. No murmur.] Lungs: Breath sounds diminished bilaterally bilateral rhonchi Abdomen: [No mass. No organomegaly. Bowel sounds presnt and normoactive in all 4 quadrants.] Extremes: [No edema no cyanosis no claudication normal pulses] : [] Musculoskeletal: [No joint erythema, edema or tenderness.] Skin: [No rash.] Neurologic: [No lateralizing deficits. CN II - XII grossly intact.] Lymphatic: [No adenopathy.] - Labs CBC & Chem 7: 08/05/19 13:37 08/05/19 13:37 Assessment and Plan (1) COPD with acute exacerbation Current Visit: Yes Status: Acute Code(s): J44.1 - CHRONIC OBSTRUCTIVE PULMONARY DISEASE W (ACUTE) EXACERBATION SNOMED Code(s): 195962203 (2) Acute exacerbation of chronic obstructive airways disease Current Visit: No Status: Acute Code(s): J44.1 - CHRONIC OBSTRUCTIVE PULMO NARY DISEASE W (ACUTE) EXACERBATION SNOMED Code(s): 005995459 Plan: Acute exacerbation of chronic COPD IV steroids 40mg every 8 DuoNeb updrafts every 6 hours when necessary po [id number] daily Sats on room air 91-92% We'll follow closely, anticipate discharge home in 24-48 hours Time with Patient: Greater than 30
[2019-08-08] MEDS: MONTELUKAST 10 MG TAB PO SCH (15:42)
[2019-08-08] MEDS ORDERED: LEVOFLOXACIN 500 MG TAB PO SCH (16:00)
[2019-08-08] MEDS: methylPREDNISolone SOD SUCCI 40 MG/ML 1 ML VIAL IV SCH ×2 (17:28→23:49)
[2019-08-08] MEDS: ATORVASTATIN 20 MG TAB PO SCH (21:02)
--- NOTE | 2019-08-08 21:26 | CONS ---
CONSULTATION DATE OF SERVICE: August 08, 2019. He has been hemodynamically stable. He is less short of breath and is almost back to baseline. On physical examination, respiratory rate is 18, pulse rate of 80, temperature 97.4, blood pressure 139/82, O2 saturation on 3 L by nasal cannula is 92%. HEENT reveals pupils equal. Chest reveals prolonged exhalation, but no wheeze. Cardiovascular system is S1, S2. Abdomen is soft. There is no pedal edema. IMPRESSION: At this time is: 1. Severe asthma with acute exacerbation. 2. Chronic obstructive pulmonary disease. 3. Possible aspiration pneumonia. Continue IV steroids, Levaquin, GI and DVT prophylaxis. Increase activity level. I agree with possible discharge planning tomorrow with close outpatient followup. MMANNE MARIEL / IJN: [id number] /
[2019-08-09] MEDS: IPRATROPIUM-ALBUTEROL 3 ML NEB INHALATION SCH ×2 (04:08→08:00)
[2019-08-09 05:22] VITALS: BP 172/94; RESP 20; TEMP 98
[2019-08-09] MEDS: HYDROcodone/APAP 10-325MG 1 EACH TAB PO PRN (06:05)
[2019-08-09] MEDS: NICOTINE 21MG/24HR PATCH TRANSDERM SCH (07:21)
[2019-08-09] MEDS: CALCIUM ACETATE 667 MG TAB PO SCH (07:22)
[2019-08-09] MEDS: THEOPHYLLINE 24 HOUR 400 MG CAP.ER.24H PO SCH (07:23)
[2019-08-09] MEDS: CLOPIDOGREL 75 MG TAB PO SCH (07:23)
[2019-08-09] MEDS: MAGNESIUM OXIDE 400 MG TAB PO SCH (07:23)
[2019-08-09] MEDS: PANTOPRAZOLE 40 MG TABLET PO SCH (07:23)
[2019-08-09] MEDS: METOPROLOL TARTRATE 25 MG TAB PO SCH (07:23)
[2019-08-09] MEDS: POTASSIUM CHLORIDE ER 20 MEQ TAB.ER PO SCH (07:23)
[2019-08-09] MEDS: PARoxetine 20 MG TAB PO SCH (07:23)
[2019-08-09] MEDS: ALLOPURINOL 100 MG TAB PO SCH (07:23)
[2019-08-09] MEDS: FUROSEMIDE 80 MG TAB PO SCH (07:23)
[2019-08-09] MEDS: MYCOPHENOLATE MOFETIL 500 MG TAB PO SCH (07:24)
[2019-08-09] MEDS: PREGABALIN 75 MG CAP PO SCH (07:24)
[2019-08-09] MEDS: HEPARIN SODIUM,PORCINE 5,000 UNIT/ML 1 ML VIAL SQ SCH (07:25)
[2019-08-09] MEDS: PHENYTOIN SODIUM EXTENDED 100 MG CAP PO SCH (07:25)
[2019-08-09] MEDS: methylPREDNISolone SOD SUCCI 40 MG/ML 1 ML VIAL IV SCH (07:25)
[2019-08-09] MEDS: ISOSORBIDE MONONITRATE ER 30 MG TAB.ER.24H PO SCH (07:26)
[2019-08-09] MEDS: FLUTICASONE 50MCG/SPRAY NASAL 16GM EA NOSTRIL SCH (07:39)
[2019-08-09] MEDS: BUDESONIDE 0.5 MG/2 ML NEBU INHALATION SCH (08:00)
[2019-08-09 08:14] VITALS: PULSE 80
--- NOTE | 2019-08-09 10:22 | P.DS ---
Providers Date of admission: 08/05/19 16:00 Expected date of discharge: 08/09/19 Attending physician: Damir Teran (1) Acute exacerbation of chronic obstructive airways disease Current Visit: No Status: Acute Code(s): J44.1 - CHRONIC OBSTRUCTIVE PULMONARY DISEASE W (ACUTE) EXACERBATION SNOMED Code(s): 372046279 (2) acute exacerbation of severe chronic persistent asthma (3) Possible aspiration pneumonia (3) Chronic hypoxic, hypercapnic respiratory failure. (4) ongoing nicotine dependence (5) obesity, BMI 33.5 Hospital course: A 59-year-old gentleman admitted with acute COPD exacerbation and multiple other medical issues. Maintained on IV steroids, nebulized bronchodilators, Levaquin with significant clinical improvement. Cleared by pulmonary for discharge. Patient is being discharged home in a stable condition with guarded prognosis. - Exam General: [Patient awake, alert and oriented times 3, no acute distress.] Cardiac: [Heart regular in rate and rhythm. No S3. No S4. No clicks, rubs. No murmur.] Lungs: Breath sounds diminished,bilateral rhonchi Abdomen: [No mass. No organomegaly. Bowel sounds presnt and normoactive in all 4 quadrants.] Extremes: [No edema no cyanosis no claudication normal pulses] Neurologic: [No focal deficits. The impression and plan of care has been dictated as directed. : I performed a history and examination of this patient, discussed the same with the dictator. I agree with the dictator's note ,documented as a scribe. Any additional findings or plans will be noted. Consults: 08/05/19 15:24 Consult Physician Routine Consulting Provider: Conner Durán Consult Reason/Comments: COPD exacerbation Do you want consulting provider notified?: Yes Primary care physician: Damir Teran Patient Condition at Discharge: Stable Plan - Discharge Summary Discharge Rx Participant: No New Discharge Prescriptions: New Levofloxacin [Levaquin] 500 mg PO Q24H #5 tab predniSONE 10 mg PO DIRECTED #30 tab Continue Metoprolol Tartrate [Lopressor] 25 mg PO BID #60 tab PARoxetine [Paxil] 20 mg PO DAILY Loratadine [Claritin] 10 mg PO DAILY Phenytoin Sodium Extended [Dilantin] 200 mg PO BID Clopidogrel Bisulfate [Clopidogrel] 75 mg PO DAILY Magnesium Oxide [Mag-Ox] 400 mg PO DAILY #30 tablet rOPINIRole HCL [Requip] 1 mg PO BID Atorvastatin [Lipitor] 20 mg PO HS Fluticasone Nasal [place] [Flonase Nasal [place]] 1 spray EA NOSTRIL DAILY Theophylline Anhydrous [Theophylline] 400 mg PO DAILY Mycophenolate Mofetil [Cellcept] 1,000 mg PO DAILY Ranitidine HCl 150 mg PO BID Allopurinol [Zyloprim] 100 mg PO Q48H Ergocalciferol (Vitamin D2) [Vitamin D2] 50,000 unit PO Q14D Montelukast [Singulair] 10 mg PO DAILY@1500 Nitroglycerin Sl Tabs [Nitrostat] 0.4 mg SUBLINGUAL Q5M PRN PRN Reason: Chest Pain Potassium Chloride [Klor-Con 20] 20 meq PO Q48H Potassium Chloride [Klor-Con 20] 40 meq PO Q48H Umeclidinium [place] [Incruse Ellipta] 1 puff INHALATION RT-DAILY Isosorbide Mononitrate ER [Imdur] 30 mg PO DAILY #30 tab Beclomethasone Dip 80 Mcg/Puff [Qvar 80 mcg] 2 puff INHALATION RT-BID Furosemide [Lasix] 80 mg PO BID HYDROcodone/APAP 10-325MG [[place] 10-325] 1 tab PO Q6H PRN PRN Reason: Pain hydrOXYzine HCL [Atarax] 25 mg PO Q8H PRN PRN Reason: Anxiety Mycophenolate Mofetil [Cellcept] 500 mg PO HS Pregabalin [Lyrica] 150 mg PO BID Varenicline [Chantix Continuing Pack] 0.5 mg PO DAILY Albuterol Inhaler [Ventolin Hfa Inhaler] 2 puff INHALATION RT-QID PRN PRN Reason: Shortness Of Breath Calcium Acetate [PhosLo] 667 mg PO DAILY Albuterol Nebulized [Ventolin Nebulized] 2.5 mg INHALATION RT-QID PRN PRN Reason: Shortness Of Breath predniSONE 5 mg PO DAILY #0 Discharge Medication List Metoprolol Tartrate [Lopressor] 25 mg PO BID #60 tab 09/18/15 [Rx] Loratadine [Claritin] 10 mg PO DAILY 05/21/16 [History] PARoxetine [Paxil] 20 mg PO DAILY 05/21/16 [History] Phenytoin Sodium Extended [Dilantin] 200 mg PO BID 05/21/16 [History] Clopidogrel Bisulfate [Clopidogrel] 75 mg PO DAILY 05/22/16 [History] Magnesium Oxide [Mag-Ox] 400 mg PO DAILY #30 tablet 07/11/16 [Rx] rOPINIRole HCL [Requip] 1 mg PO BID 08/30/16 [History] Atorvastatin [Lipitor] 20 mg PO HS 10/03/17 [History] Fluticasone Nasal [place] [Flonase Nasal [place]] 1 spray EA NOSTRIL DAILY 10/03/17 [History] Mycophenolate Mofetil [Cellcept] 1,000 mg PO DAILY 10/03/17 [History] Ranitidine HCl 150 mg PO BID 10/03/17 [History] Theophylline Anhydrous [Theophylline] 400 mg PO DAILY 10/03/17 [History] Allopurinol [Zyloprim] 100 mg PO Q48H 02/04/18 [History] Ergocalciferol (Vitamin D2) [Vitamin D2] 50,000 unit PO Q14D 02/04/18 [History] Montelukast [Singulair] 10 mg PO DAILY@1500 02/04/18 [History] Nitroglycerin Sl Tabs [Nitrostat] 0.4 mg SUBLINGUAL Q5M PRN 02/04/18 [History] Potassium Chloride [Klor-Con 20] 20 meq PO Q48H 02/04/18 [History] Potassium Chloride [Klor-Con 20] 40 meq PO Q48H 02/04/18 [History] Umeclidinium [place] [Incruse Ellipta] 1 puff INHALATION RT-DAILY 02/04/18 [History] Isosorbide Mononitrate ER [Imdur] 30 mg PO DAILY #30 tab 02/05/18 [Rx] Albuterol Inhaler [Ventolin Hfa Inhaler] 2 puff INHALATION RT-QID PRN 08/05/19 [History] Albuterol Nebulized [Ventolin Nebulized] 2.5 mg INHALATION RT-QID PRN 08/05/19 [History] Beclomethasone Dip 80 Mcg/Puff [Qvar 80 mcg] 2 puff INHALATION RT-BID 08/05/19 [History] Calcium Acetate [PhosLo] 667 mg PO DAILY 08/05/19 [History] Furosemide [Lasix] 80 mg PO BID 08/05/19 [History] HYDROcodone/APAP 10-325MG [[place] 10-325] 1 tab PO Q6H PRN 08/05/19 [History] Mycophenolate Mofetil [Cellcept] 500 mg PO HS 08/05/19 [History] Pregabalin [Lyrica] 150 mg PO BID 08/05/19 [History] Varenicline [Chantix Continuing Pack] 0.5 mg PO DAILY 08/05/19 [History] hydrOXYzine HCL [Atarax] 25 mg PO Q8H PRN 08/05/19 [History] Levofloxacin [Levaquin] 500 mg PO Q24H #5 tab 08/09/19 [Rx] predniSONE 5 mg PO DAILY #0 08/09/19 [Rx] predniSONE 10 mg PO DIRECTED #30 tab 08/09/19 [Rx] Follow up Appointment(s)/Referral(s): Damir Teran MD [Primary Care Provider] - 08/11/19 11:30 am Conner Durán MD [STAFF PHYSICIAN] - 08/16/19 1:45 pm Ambulatory/Diagnostic Orders: Complete Blood Count w/diff [LAB.AMB] Time Frame: 3 Days, Location: None Selected Activity/Diet/Wound Care/Special Instructions: 3lNC )2
== END 2019-08-09 11:22 | disposition home or self-care (01) | DRG 190 ==
LOC: EC 12:45 → 3NMEDONC 16:00
PROVIDERS: ADMIT Family Medicine; ATTEND Family Medicine
DX: J44.1 Chronic obstructive pulmonary disease with (acute) exacerbation (principal); J69.0 Pneumonitis due to inhalation of food and vomit; J45.901 Unspecified asthma with (acute) exacerbation; J96.12 Chronic respiratory failure with hypercapnia; J96.11 Chronic respiratory failure with hypoxia; I50.9 Heart failure, unspecified; I49.3 Ventricular premature depolarization; I25.10 Atherosclerotic heart disease of native coronary artery without angina pectoris; G89.29 Other chronic pain; M32.9 Systemic lupus erythematosus, unspecified; F32.9 Major depressive disorder, single episode, unspecified; F41.9 Anxiety disorder, unspecified; G47.33 Obstructive sleep apnea (adult) (pediatric); I11.0 Hypertensive heart disease with heart failure; G40.909 Epilepsy, unspecified, not intractable, without status epilepticus; F17.210 Nicotine dependence, cigarettes, uncomplicated; E66.9 Obesity, unspecified; E78.5 Hyperlipidemia, unspecified; I25.2 Old myocardial infarction; Z79.02 Long term (current) use of antithrombotics/antiplatelets; Z79.52 Long term (current) use of systemic steroids; Z79.82 Long term (current) use of aspirin; Z79.899 Other long term (current) drug therapy; Z80.1 Family history of malignant neoplasm of trachea, bronchus and lung; Z82.49 Family history of ischemic heart disease and other diseases of the circulatory system; Z82.5 Family history of asthma and other chronic lower respiratory diseases; Z86.73 Personal history of transient ischemic attack (TIA), and cerebral infarction without residual deficits; Z99.81 Dependence on supplemental oxygen; Z95.5 Presence of coronary angioplasty implant and graft; Z98.890 Other specified postprocedural states; Z90.49 Acquired absence of other specified parts of digestive tract; Z91.041 Radiographic dye allergy status; Z88.8 Allergy status to other drugs, medicaments and biological substances; Z88.0 Allergy status to penicillin; Z68.33 Body mass index [BMI] 33.0-33.9, adult
CPT/HCPCS: 36415; 71046; 71250; 80053; 83735; 83880; 84484; 85025; 85610; 85730; 93005; 94640; 94644; 94760; 96365; 96375; 99291

== ENCOUNTER → 2019-10-15 | Outpatient (CLI) | payer OTHER ==
--- NOTE | 2019-10-15 08:56 | US ---
EXAMINATION TYPE: US abdomen complete DATE OF EXAM: 10/15/2019 COMPARISON: CT 2016 CLINICAL HISTORY: R09.84 abd pain, R14 abd distentions. GB removed 2016 EXAM MEASUREMENTS: Liver Length: 19.1 cm Gallbladder Wall: Surgically absent cm CBD: 0.8 cm Spleen: 11.9 cm Right Kidney: 12.9 x 5.2 x 5.0 cm Left Kidney: 13.4 x 5.6 x 5.1 cm Pancreas: Tail obscured by overlying bowel gas Liver: enlarged Gallbladder: Surgically absent Evidence for sonographic Bermudez's sign: No CBD: wnl Spleen: wnl Right Kidney: No hydronephrosis or masses seen Left Kidney: No hydronephrosis or masses seen Upper IVC: wnl Abd Aorta: wnl, distal portion obscured by bowel gas The liver is homogenous. The intrahepatic portion of the IVC and proximal abdominal aorta are within normal limits. There is no evidence of cholelithiasis. Common bile duct is unremarkable. The visu alized portions of the pancreas are homogenous. The spleen is unremarkable. Kidneys are symmetric a nd free of hydronephrosis. No renal lesions are seen. IMPRESSION: Hepatomegaly, otherwise unremarkable abdominal ultrasound. Hepatic echotexture is overall homogeneous.
== END | disposition home or self-care (01) ==
LOC: RADUSWWP 06:54
PROVIDERS: ATTEND Family Medicine
DX: R16.0 Hepatomegaly, not elsewhere classified (principal); R14.0 Abdominal distension (gaseous); Z88.0 Allergy status to penicillin; Z88.8 Allergy status to other drugs, medicaments and biological substances; Z91.048 Other nonmedicinal substance allergy status
CPT/HCPCS: 76700

== ENCOUNTER → 2019-11-30 | Outpatient (CLI) | payer OTHER ==
[2019-11-30 13:57] LABS: African American GFR (CKD) >90 (>60 ml/min/1.73 sqM); Blood Urea Nitrogen 15 mg/dL (9-20); Non-African American GFR(CKD) >90 (>60 ml/min/1.73 sqM)
--- NOTE | 2019-11-30 15:30 | CT ---
EXAMINATION TYPE: CT abdomen pelvis w con DATE OF EXAM: 11/30/2019 COMPARISON: 08/16/2016 HISTORY: Abdominal distention CT DLP: 1881.7 mGycm Automated exposure control for dose reduction was used. TECHNIQUE: Helical acquisition of images was performed from the lung bases through the pelvis. CONTRAST: Performed with Oral Contrast and with IV Contrast, patient injected with 100 mL of Isovue 300. FINDINGS: LUNG BASES: Patchy right basilar airspace disease enhances less than that of the paraspinal musculatu re and is concerning for pneumonia. Atelectasis as an alternative possibility if pneumonia is not cli nically fitting. Other scattered areas of subsegmental atelectasis are seen of the lung bases. Modera te coronary artery calcifications are partially visualized. LIVER/GB: Unremarkable morphology of the liver. No focal hepatic mass is seen. Gallbladder surgically absent. PANCREAS: No significant abnormality is seen. SPLEEN: No splenomegaly. ADRENALS: No nodularity or enlargement. KIDNEYS: There is ar 1.7 cm oval left lower pole renal cyst. Bilateral additional punctate subcentime ter too small to accurately characterize renal lesions are seen. No hydronephrosis of either kidney. FREE AIR: No free air is visualized. ADENOPATHY: No greater than 1 cm short axis lymph node in the abdomen or pelvis. OSSEOUS STRUCTURES: Severe generative change of the right sacroiliac joint and lumbosacral junction. Chronic mild compression deformities of L5 and T12. Spinal canal stenosis is again seen at L4-L5. BOWEL: Appendix is air-filled and within normal limits of size. Mild degree colonic fecal stasis. Or al contrast does not progress into the colon in the colon is suboptimally evaluated. Scattered coloni c diverticula are seen without pericolonic fat stranding. No dilated large or small bowel. OTHER: Severe atherosclerosis of the abdominal aorta and its branches are seen. Ventral diastases rec ti. IMPRESSION: 1. Patchy right upper lobe opacity is partially visualized and concerning for pneumonia in the approp riate clinical setting. Atelectasis in the alternative possibility. Chest x-ray or CTs chest could fu rther evaluate the entirety of this opacity. 2. Ventral diastases recti in this patient with abdominal distention. No acute process seen in the ab domen. Scattered colonic diverticuli without evidence of acute diverticulitis.
== END | disposition home or self-care (01) ==
LOC: RADCTMAIN 13:19
PROVIDERS: ATTEND Family Medicine
DX: K57.30 Diverticulosis of large intestine without perforation or abscess without bleeding (principal); R14.0 Abdominal distension (gaseous); M62.08 Separation of muscle (nontraumatic), other site; Z88.0 Allergy status to penicillin; Z88.8 Allergy status to other drugs, medicaments and biological substances; Z91.048 Other nonmedicinal substance allergy status
CPT/HCPCS: 82565; 84520; 74177; 36415; Q9967

== ENCOUNTER → 2020-05-03 | Outpatient (CLI) | payer OTHER ==
[2020-05-03 12:47] LABS: Basophils % (A) 0 %; Eosinophils # (A) 0.1 k/uL (0-0.7); Eosinophils % (A) 1 %; HCT 51.4 % (39.0-53.0); HGB 15.9 gm/dL (13.0-17.5); Hypochromasia Slight; Lymphocytes # (A) 1.3 k/uL (1.0-4.8); Lymphocytes % (A) 12 %; MCH 31.3 pg (25.0-35.0); MCV 101.1 fL (80.0-100.0); Macrocytosis Slight; Mean Platelet Volume 8.3; Monocytes # (A) 0.2 k/uL (0-1.0); Monocytes % (A) 2 %; Neutrophils # (A) 8.8 k/uL (1.3-7.7); Neutrophils % (A) 85 %; Platelet Count 190 k/uL (150-450); RBC 5.08 m/uL (4.30-5.90); RDW 13.5 % (11.5-15.5); WBC 10.4 k/uL (3.8-10.6)
[2020-05-03 13:33] LABS: Appearance,Urine Clear (Clear); Bilirubin,Urine Negative (Negative); Blood,Urine Negative (Negative); Color,Urine Light Yellow; Glucose,Urine (UA) 2+ (Negative); Ketones,Urine Negative (Negative); Leukocyte Esterase,Urine Negative (Negative); Nitrite,Urine Negative (Negative); PH, Urine 5.5 (5.0-8.0); Protein,Urine Negative (Negative); Specific Gravity,Urine 1.009 (1.001-1.035); Urobilinogen,Urine <2.0 mg/dL (<2.0)
[2020-05-03 13:55] LABS: Protein/Creatinine Ratio,Urine 0.385
[2020-05-03 20:08] LABS: % Iron Saturation 28.42 (15.00-50.00); African American GFR (CKD) 95.1 (60.0-200.0); Albumin 4.3 g/dL (3.80-4.90); Albumin/Globulin Ratio 2.15 (1.60-3.17); Anion Gap 9.6 mmol/L (4.00-12.00); Calcium 9.6 mg/dL (8.7-10.3); Carbon Dioxide 36.4 mmol/L (21.6-31.8); Magnesium 2.1 mg/dL (1.5-2.4); Phosphorus 2.9 mg/dL (2.4-5.1); Potassium 4.7 mmol/L (3.5-5.5); Total Bilirubin 0.3 mg/dL (0.3-1.2); Total Protein 6.3 g/dL (6.2-8.2); Uric Acid 6.5 mg/dL (3.7-8.7)
[2020-05-03 20:13] LABS: Ferritin 142.4 ng/mL (22.0-322.0)
== END | disposition home or self-care (01) ==
LOC: LABWHC1 10:56
PROVIDERS: ATTEND Internal Medicine
DX: M32.9 Systemic lupus erythematosus, unspecified (principal); D64.9 Anemia, unspecified; N39.0 Urinary tract infection, site not specified; E21.3 Hyperparathyroidism, unspecified; E55.9 Vitamin D deficiency, unspecified; M10.9 Gout, unspecified
CPT/HCPCS: 36415; 80053; 81003; 82306; 82570; 82728; 83540; 83550; 83735; 83970; 84100; 84156; 84550; 85025

== ENCOUNTER 2020-05-12 15:49 | Observation (INO) | payer OTHER ==
[2020-05-12] MEDS ORDERED: SODIUM CHLORIDE 0.9% 500 ML 500 ML IV STA (16:06)
--- NOTE | 2020-05-12 16:27 | ED ---
General Adult HPI - General Chief complaint: Syncope Stated complaint: Syncope Time Seen by Provider: 05/12/20 16:00 Source: patient Mode of arrival: ambulatory Limitations: no limitations - History of Present Illness Initial comments: Patient is a 59-year-old male with past medical history of MD, seizure disorder, lupus, COPD on 3 L home O2 presents to emergency department with a possible syncopal episode. The patient reports that he was sleeping, awoke and went to the kitchen to make something to eat. At this time he did take off his oxygen. He made himself food and then walked to the living room to eat it. He was attempting to prop some pillows underneath his knees as this does help with his arthritis pain. He then felt like he was going to pass out. found him, downtime approximately 10 minutes and called EMS. EMS arrived and found the patient is cyanotic from the chest up. He was completely unresponsive. They did bag the patient for a period of time and then he became fully arousable. There was no seizure-like activity. There is no postictal phase. Patient states he normally wears his oxygen however has been able to take it off for short periods without anything like this happening. He denied having any chest pain. No shortness of breath. Has a productive cough which is chronic for him. States he cannot lie flat to sleep however this is also chronic. Reports to significant cardiac history. He also has seizure disorder however has not had a seizure in several years. Takes his antiseizure medications daily and denies missing any doses. Patient denies any abdominal pain. Does report to black stools. Denies previous history of GI bleeding. No recent fevers or chills. Denies any nausea or vomiting. Reports to a good appetite. Does admit to worsening lower extremity edema. No other alleviating, precipitating or modifying factors - Related Data Home Medications Medication Instructions Recorded Confirmed Loratadine [Claritin] 10 mg PO DAILY 05/21/16 05/12/20 PARoxetine [Paxil] 20 mg PO DAILY 05/21/16 05/12/20 Phenytoin Sodium Extended 200 mg PO BID 05/21/16 05/12/20 [Dilantin] Clopidogrel Bisulfate [Clopidogrel] 75 mg PO DAILY 05/22/16 05/12/20 rOPINIRole HCL [Requip] 1 mg PO BID 08/30/16 05/12/20 Atorvastatin [Lipitor] 20 mg PO HS 10/03/17 05/12/20 Mycophenolate Mofetil [Cellcept] 1,000 mg PO DAILY 10/03/17 05/12/20 Theophylline Anhydrous 400 mg PO DAILY 10/03/17 05/12/20 [Theophylline] Ergocalciferol (Vitamin D2) 50,000 unit PO Q7D 02/04/18 05/12/20 [Vitamin D2] Montelukast [Singulair] 10 mg PO DAILY@1500 02/04/18 05/12/20 Nitroglycerin Sl Tabs [Nitrostat] 0.4 mg SUBLINGUAL Q5M PRN 02/04/18 05/12/20 Potassium Chloride [Klor-Con 20] 20 meq PO DAILY 02/04/18 05/12/20 Potassium Chloride [Klor-Con 20] 40 meq PO HS 02/04/18 05/12/20 Umeclidinium [place] [Incruse 1 puff INHALATION RT-DAILY 02/04/18 05/12/20 Ellipta] allopurinoL [Zyloprim] 100 mg PO DAILY 02/04/18 05/12/20 Albuterol Inhaler (Mhu) [Ventolin 2 puff INHALATION RT-QID PRN 08/05/19 05/12/20 Hfa Inhaler (Mhu)] Albuterol Nebulized [Ventolin 2.5 mg INHALATION RT-QID PRN 08/05/19 05/12/20 Nebulized] Beclomethasone Dip 80 Mcg/Puff 2 puff INHALATION RT-BID 08/05/19 05/12/20 [Qvar 80 mcg] Calcium Acetate [PhosLo] 667 mg PO DAILY 08/05/19 05/12/20 Furosemide [Lasix] 80 mg PO BID 08/05/19 05/12/20 Varenicline [Chantix Continuing 1 mg PO DAILY 08/05/19 05/12/20 Pack] hydrOXYzine HCL [Atarax] 25 mg PO Q8H PRN 08/05/19 05/12/20 mycophenolate mofetiL [Cellcept] 500 mg PO HS 08/05/19 05/12/20 Aspirin 325 mg PO DAILY 05/12/20 05/12/20 Diclofenac Sodium Gel [Voltaren 4 gm TOPICAL QID PRN 05/12/20 05/12/20 Gel] Famotidine 20 mg PO DAILY 05/12/20 05/12/20 HYDROcodone/APAP 7.5-325MG [[place] 1 tab PO Q6H PRN 05/12/20 05/12/20 7.5-325] Multivitamins, Thera [Multivitamin 1 tab PO DAILY 05/12/20 05/12/20 (formulary)] modafiniL [Provigil] 200 mg PO DAILY 05/12/20 05/12/20 Previous Rx's Medication Instructions Recorded Metoprolol Tartrate [Lopressor] 25 mg PO BID #60 tab 09/18/15 Magnesium Oxide [Mag-Ox] 400 mg PO DAILY #30 tablet 07/11/16 Isosorbide Mononitrate ER [Imdur] 30 mg PO DAILY #30 tab 02/05/18 predniSONE 5 mg PO DAILY #0 08/09/19 Allergies Allergy/AdvReac Type Severity Reaction Status Date / Time Penicillins Allergy Severe Swelling Verified 05/12/20 19:49 Iodinated Contrast Media Allergy Swelling Verified 05/12/20 19:49 [Iodinated Contrast- Oral and IV Dye] iodine Allergy Itching, Verified 05/12/20 19:49 Hives phenobarbital AdvReac Drowsiness Verified 05/12/20 19:49 Review of Systems ROS Statement: Those systems with pertinent positive or pertinent negative responses have been documented in the HPI. ROS Other: All systems not noted in ROS Statement are negative. 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, lupus, continuous oxygen use at 3L, no cpap used, kidney failure with hemodilaysis in the past, 3 MD's, hypoglycemia Last Myocardial Infarction Date:: 2015 History of Any Multi-Drug Resistant Organisms: None Reported Past Surgical History: Cholecystectomy, Heart Catheterization, Heart Catheterization With Stent, Tonsillectomy Additional Past Surgical History / Comment(s): STATES 3 cardiac stents, Past Anesthesia/Blood Transfusion Reactions: No Reported Reaction Additional Past Anesthesia/Blood Transfusion Reaction / Comment(s): blood transfusion-no reaction, unknown family hx per spouse Date of Last Stent Placement:: 2015 Past Psychological History: Anxiety, Depression Smoking Status: Current every day smoker Past Alcohol Use History: None Reported Past Drug Use History: None Reported - Past Family History Father Family Medical History: Myocardial Infarction (MD) Mother Family Medical History: Asthma, Cancer, COPD General Exam Limitations: no limitations General appearance: alert, in no apparent distress Head exam: Present: atraumatic, normocephalic, normal inspection Eye exam: Present: normal appearance, PERRL, EOMI. Absent: scleral icterus, conjunctival injection, periorbital swelling ENT exam: Present: normal exam, mucous membranes moist Neck exam: Present: normal inspection. Absent: tenderness, meningismus, lymphadenopathy Respiratory exam: Present: normal lung sounds bilaterally. Absent: respiratory distress, wheezes, rales, rhonchi, stridor Cardiovascular Exam: Present: regular rate, normal rhythm, normal heart sounds. Absent: systolic murmur, diastolic murmur, rubs, gallop, clicks GI/Abdominal exam: Present: soft, normal bowel sounds. Absent: distended, tenderness, guarding, rebound, rigid Extremities exam: Present: normal inspection, full ROM, normal capillary refill. Absent: tenderness, pedal edema, joint swelling, calf tenderness Back exam: Present: normal inspection Neurological exam: Present: alert, oriented X3, CN II-XII intact Psychiatric exam: Present: normal affect, normal mood Skin exam: Present: warm, dry, intact, normal color. Absent: rash Course Vital Signs 05/12/20 05/12/20 05/12/20 15:57 17:00 17:30 Temperature 98.8 F Pulse Rate 79 69 71 Pulse Rate [ Bilateral] Respiratory 18 18 20 Rate Blood Pressure 80/61 111/57 126/70 Blood Pressure [Left Arm] O2 Sat by Pulse 94 L 92 L 93 L Oximetry 05/12/20 05/12/20 05/12/20 18:00 18:30 18:40 Temperature Pulse Rate 68 72 Pulse Rate [ 63 Bilateral] Respiratory 18 18 20 Rate Blood Pressure 161/87 147/106 Blood Pressure 118/62 [Left Arm] O2 Sat by Pulse 92 L 94 L 93 L Oximetry 05/12/20 05/12/20 05/12/20 19:00 19:33 21:38 Temperature Pulse Rate 63 61 73 Pulse Rate [ Bilateral] Respiratory 18 16 113 H Rate Blood Pressure 125/106 115/79 Blood Pressure [Left Arm] O2 Sat by Pulse 93 L 94 L 94 L Oximetry EKG Findings - EKG Comments: EKG Findings:: EKG demonstrates normal sinus rhythm with a ventricular rate of 79. CT interval 162. QRS 98. QTC of 440. No acute ST segment elevations or depressions concerning for ischemic changes Medical Decision Making - Medical Decision Making The patient is placed in room 8. A thorough history and physical exam was performed. Peripheral IV was established by EMS. Laboratory studies were conducted. 12-lead EKG was performed. Laboratory studies are unremarkable. D- dimer is 0.29. Troponin is negative. Urinalysis is negative. UDS is positive for opiates and barbiturates. Theophylline level 7.9. Dilantin level is pending. A rectal exam is performed and demonstrates no gross blood. Sample is sent and is negative for occult blood. Chest x-ray is performed which demonstrates no acute cardiopulmonary process. I did do venous Doppler exam of the lower extremities which demonstrates no acute DVT. I called and discussed the case with Dr. Ctaes. I recommended hospital admission for acute syncopal episode. Dr. Cates did accept admission. Patient is currently awaiting a bed on the floor - Lab Data Result diagrams: 05/13/20 06:15 05/13/20 06:15 Lab Results 05/12/20 05/12/20 05/12/20 Range/Units 16:16 16:16 16:16 WBC 9.4 (3.8-10.6) k/uL RBC 4.93 (4.30-5.90) m/uL Hgb 15.2 (13.0-17.5) gm/dL Hct 48.7 (39.0-53.0) % MCV 98.8 (80.0-100.0) fL MCH 30.8 (25.0-35.0) pg MCHC 31.2 (31.0-37.0) g/dL RDW 13.6 (11.5-15.5) % Plt Count 160 (150-450) k/uL Neutrophils % 67 % Lymphocytes % 24 % Monocytes % 5 % Eosinophils % 2 % Basophils % 0 % Neutrophils # 6.3 (1.3-7.7) k/uL Lymphocytes # 2.3 (1.0-4.8) k/uL Monocytes # 0.5 (0-1.0) k/uL Eosinophils # 0.2 (0-0.7) k/uL Basophils # 0.0 (0-0.2) k/uL PT 9.5 (9.0-12.0) sec INR 0.9 (<1.2) APTT 24.3 (22.0-30.0) sec D-Dimer 0.29 (<0.60) mg/L FEU Sodium 139 (137-145) mmol/L Potassium 3.8 (3.5-5.1) mmol/L Chloride 100 (98-107) mmol/L Carbon Dioxide 36 H (22-30) mmol/L Anion Gap 3 mmol/L BUN 12 (9-20) mg/dL Creatinine 0.71 (0.66-1.25) mg/dL Est GFR (CKD-EPI)AfAm >90 (>60 ml/min/1.73 sqM) Est GFR (CKD-EPI)NonAf >90 (>60 ml/min/1.73 sqM) Glucose 180 H (74-99) mg/dL Calcium 9.6 (8.4-10.2) mg/dL Total Bilirubin 0.4 (0.2-1.3) mg/dL AST 24 (17-59) U/L ALT 19 (4-49) U/L Alkaline Phosphatase 157 H (38-126) U/L Troponin I (0.000-0.034) ng/mL Total Protein 6.3 (6.3-8.2) g/dL Albumin 3.9 (3.5-5.0) g/dL Urine Color Urine Appearance (Clear) Urine pH (5.0-8.0) Ur Specific [place] (1.001-1.035) Urine Protein (Negative) Urine Glucose (UA) (Negative) Urine Ketones (Negative) Urine Blood (Negative) Urine Nitrite (Negative) Urine Bilirubin (Negative) Urine Urobilinogen (<2.0) mg/dL Ur Leukocyte Esterase (Negative) Stool Occult Blood (Negative) Urine Opiates Screen (NotDetected) Ur Oxycodone Screen (NotDetected) Urine Methadone Screen (NotDetected) Ur Propoxyphene Screen (NotDetected) Ur Barbiturates Screen (NotDetected) Free Phenytoin (0.8-2.0) ug/mL U Tricyclic Antidepress (NotDetected) Ur Phencyclidine Scrn (NotDetected) Ur Amphetamines Screen (NotDetected) U Methamphetamines Scrn (NotDetected) U Benzodiazepines Scrn (NotDetected) Urine Cocaine Screen (NotDetected) Theophylline 7.9 ug/mL U Marijuana (THC) Screen (NotDetected) 05/12/20 05/12/20 05/12/20 Range/Units 16:16 16:16 16:16 WBC (3.8-10.6) k/uL RBC (4.30-5.90) m/uL Hgb (13.0-17.5) gm/dL Hct (39.0-53.0) % MCV (80.0-100.0) fL MCH (25.0-35.0) pg MCHC (31.0-37.0) g/dL RDW (11.5-15.5) % Plt Count (150-450) k/uL Neutrophils % % Lymphocytes % % Monocytes % % Eosinophils % % Basophils % % Neutrophils # (1.3-7.7) k/uL Lymphocytes # (1.0-4.8) k/uL Monocytes # (0-1.0) k/uL Eosinophils # (0-0.7) k/uL Basophils # (0-0.2) k/uL PT (9.0-12.0) sec INR (<1.2) APTT (22.0-30.0) sec D-Dimer (<0.60) mg/L FEU Sodium (137-145) mmol/L Potassium (3.5-5.1) mmol/L Chloride (98-107) mmol/L Carbon Dioxide (22-30) mmol/L Anion Gap mmol/L BUN (9-20) mg/dL Creatinine (0.66-1.25) mg/dL Est GFR (CKD-EPI)AfAm (>60 ml/min/1.73 sqM) Est GFR (CKD-EPI)NonAf (>60 ml/min/1.73 sqM) Glucose (74-99) mg/dL Calcium (8.4-10.2) mg/dL Total Bilirubin (0.2-1.3) mg/dL AST (17-59) U/L ALT (4-49) U/L Alkaline Phosphatase (38-126) U/L Troponin I <0.012 (0.000-0.034) ng/mL Total Protein (6.3-8.2) g/dL Albumin (3.5-5.0) g/dL Urine Color Urine Appearance (Clear) Urine pH (5.0-8.0) Ur Specific [place] (1.001-1.035) Urine Protein (Negative) Urine Glucose (UA) (Negative) Urine Ketones (Negative) Urine Blood (Negative) Urine Nitrite (Negative) Urine Bilirubin (Negative) Urine Urobilinogen (<2.0) mg/dL Ur Leukocyte Esterase (Negative) Stool Occult Blood Negative (Negative) Urine Opiates Screen (NotDetected) Ur Oxycodone Screen (NotDetected) Urine Methadone Screen (NotDetected) Ur Propoxyphene Screen (NotDetected) Ur Barbiturates Screen (NotDetected) Free Phenytoin 0.8 (0.8-2.0) ug/mL U Tricyclic Antidepress (NotDetected) Ur Phencyclidine Scrn (NotDetected) Ur Amphetamines Screen (NotDetected) U Methamphetamines Scrn (NotDetected) U Benzodiazepines Scrn (NotDetected) Urine Cocaine Screen (NotDetected) Theophylline ug/mL U Marijuana (THC) Screen (NotDetected) 05/12/20 05/12/20 Range/Units 17:03 17:03 WBC (3.8-10.6) k/uL RBC (4.30-5.90) m/uL Hgb (13.0-17.5) gm/dL Hct (39.0-53.0) % MCV (80.0-100.0) fL MCH (25.0-35.0) pg MCHC (31.0-37.0) g/dL RDW (11.5-15.5) % Plt Count (150-450) k/uL Neutrophils % % Lymphocytes % % Monocytes % % Eosinophils % % Basophils % % Neutrophils # (1.3-7.7) k/uL Lymphocytes # (1.0-4.8) k/uL Monocytes # (0-1.0) k/uL Eosinophils # (0-0.7) k/uL Basophils # (0-0.2) k/uL PT (9.0-12.0) sec INR (<1.2) APTT (22.0-30.0) sec D-Dimer (<0.60) mg/L FEU Sodium (137-145) mmol/L Potassium (3.5-5.1) mmol/L Chloride (98-107) mmol/L Carbon Dioxide (22-30) mmol/L Anion Gap mmol/L BUN (9-20) mg/dL Creatinine (0.66-1.25) mg/dL Est GFR (CKD-EPI)AfAm (>60 ml/min/1.73 sqM) Est GFR (CKD-EPI)NonAf (>60 ml/min/1.73 sqM) Glucose (74-99) mg/dL Calcium (8.4-10.2) mg/dL Total Bilirubin (0.2-1.3) mg/dL AST (17-59) U/L ALT (4-49) U/L Alkaline Phosphatase (38-126) U/L Troponin I (0.000-0.034) ng/mL Total Protein (6.3-8.2) g/dL Albumin (3.5-5.0) g/dL Urine Color Yellow Urine Appearance Clear (Clear) Urine pH 6.5 (5.0-8.0) Ur Specific [place] 1.012 (1.001-1.035) Urine Protein Negative (Negative) Urine Glucose (UA) Negative (Negative) Urine Ketones Negative (Negative) Urine Blood Negative (Negative) Urine Nitrite Negative (Negative) Urine Bilirubin Negative (Negative) Urine Urobilinogen <2.0 (<2.0) mg/dL Ur Leukocyte Esterase Negative (Negative) Stool Occult Blood (Negative) Urine Opiates Screen Detected H (NotDetected) Ur Oxycodone Screen Not Detected (NotDetected) Urine Methadone Screen Not Detected (NotDetected) Ur Propoxyphene Screen Not Detected (NotDetected) Ur Barbiturates Screen Detected H (NotDetected) Free Phenytoin (0.8-2.0) ug/mL U Tricyclic Antidepress Not Detected (NotDetected) Ur Phencyclidine Scrn Not Detected (NotDetected) Ur Amphetamines Screen Not Detected (NotDetected) U Methamphetamines Scrn Not Detected (NotDetected) U Benzodiazepines Scrn Not Detected (NotDetected) Urine Cocaine Screen Not Detected (NotDetected) Theophylline ug/mL U Marijuana (THC) Screen Not Detected (NotDetected) Disposition Clinical Impression: Syncope, Hypoxia, Chronic respiratory failure Disposition: ADMITTED IP TO THIS [facility] Condition: Stable Is patient prescribed a controlled substance at d/c from ED?: No Decision to Admit Reason: Admit from EC Decision Date: 05/12/20 Decision Time: 17:27
[2020-05-12 16:34] LABS: Basophils % (A) 0 %; Eosinophils # (A) 0.2 k/uL (0-0.7); Eosinophils % (A) 2 %; HCT 48.7 % (39.0-53.0); HGB 15.2 gm/dL (13.0-17.5); Lymphocytes # (A) 2.3 k/uL (1.0-4.8); Lymphocytes % (A) 24 %; MCH 30.8 pg (25.0-35.0); MCHC 31.2 g/dL (31.0-37.0); MCV 98.8 fL (80.0-100.0); Mean Platelet Volume 8.3; Monocytes # (A) 0.5 k/uL (0-1.0); Monocytes % (A) 5 %; Neutrophils # (A) 6.3 k/uL (1.3-7.7); Neutrophils % (A) 67 %; Platelet Count 160 k/uL (150-450); RBC 4.93 m/uL (4.30-5.90); RDW 13.6 % (11.5-15.5); WBC 9.4 k/uL (3.8-10.6)
[2020-05-12 16:44] LABS: ALT 19 U/L (4-49); AST 24 U/L (17-59); African American GFR (CKD) >90 (>60 ml/min/1.73 sqM); Albumin 3.9 g/dL (3.5-5.0); Alkaline Phosphatase 157 U/L (38-126); Anion Gap 3 mmol/L; Blood Urea Nitrogen 12 mg/dL (9-20); Calcium 9.6 mg/dL (8.4-10.2); Carbon Dioxide 36 mmol/L (22-30); Chloride 100 mmol/L (98-107); Glucose 180 mg/dL (74-99); Non-African American GFR(CKD) >90 (>60 ml/min/1.73 sqM); Potassium 3.8 mmol/L (3.5-5.1); Sodium 139 mmol/L (137-145); Theophylline 7.9 ug/mL; Total Bilirubin 0.4 mg/dL (0.2-1.3); Total Protein 6.3 g/dL (6.3-8.2)
[2020-05-12 17:11] LABS: Appearance,Urine Clear (Clear); Bilirubin,Urine Negative (Negative); Blood,Urine Negative (Negative); Color,Urine Yellow; Glucose,Urine (UA) Negative (Negative); Ketones,Urine Negative (Negative); Leukocyte Esterase,Urine Negative (Negative); Nitrite,Urine Negative (Negative); PH, Urine 6.5 (5.0-8.0); Protein,Urine Negative (Negative); Specific Gravity,Urine 1.012 (1.001-1.035); Urobilinogen,Urine <2.0 mg/dL (<2.0)
--- NOTE | 2020-05-12 17:12 | XR ---
EXAMINATION TYPE: XR chest 2V DATE OF EXAM: 05/12/2020 CLINICAL HISTORY: Syncope TECHNIQUE: Frontal and lateral views of the chest are obtained. COMPARISON: Chest radiograph 08/05/2019. FINDINGS: Elevation of the left hemidiaphragm redemonstrated. The cardiomediastinal silhouette is wi thin normal limits for size. Pulmonary vasculature is normal. Bibasilar linear atelectasis. There is no focal air space opacity, pleural effusion, or pneumothorax seen. The osseous structures are intact . IMPRESSION: No acute cardiopulmonary process.
[2020-05-12 17:14] LABS: D-Dimer 0.29 mg/L FEU (<0.60); INR 0.9 (<1.2); Partial Thromboplastin Time 24.3 sec (22.0-30.0); Prothrombin Time 9.5 sec (9.0-12.0)
[2020-05-12] MEDS ORDERED: NALOXONE 0.4 MG/ML 1 ML VIAL IV PRN (17:28)
[2020-05-12] MEDS ORDERED: MORPHINE SULFATE 2 MG/ML SYRINGE IVP ONE (17:55)
--- NOTE | 2020-05-12 18:01 | US ---
EXAMINATION TYPE: US venous doppler duplex LE DATE OF EXAM: 05/12/2020 5:35 PM COMPARISON: NONE CLINICAL HISTORY: 59-year-old male lower extremity swelling, pain. Bilateral leg pain and swelling SIDE PERFORMED: Bilateral TECHNIQUE: The lower extremity deep venous system is examined utilizing real time linear array sonog jaida with graded compression, doppler sonography and color-flow sonography. FINDINGS: VESSELS IMAGED: External Iliac Vein (EIV) Common Femoral Vein Deep Femoral Vein Greater Saphenous Vein * Femoral Vein Popliteal Vein Small Saphenous Vein * Proximal Calf Veins (* superficial vessels) Right Leg: Negative for DVT Left Leg: Negative for DVT IMPRESSION: No evidence for DVT within the bilateral lower extremities imaged from the groin to the upper calves.
[2020-05-12 18:57] LABS: Amphetamine Screen,Urine Not Detected (NotDetected); Barbiturate Screen,Urine Detected (NotDetected); Benzodiazepines Screen,Urine Not Detected (NotDetected); Cocaine Screen,Urine Not Detected (NotDetected); Methadone Screen, Urine Not Detected (NotDetected); Opiate Screen,Urine Detected (NotDetected); Oxycodone Screen, Urine Not Detected (NotDetected); Phencyclidine Screen,Urine Not Detected (NotDetected); Tricyclic Antidepressant,Urine Not Detected (NotDetected); Urn Cannabinoid Scrn Not Detected (NotDetected)
[2020-05-12] MEDS: PHENYTOIN SODIUM EXTENDED 100 MG CAP PO SCH (23:17)
[2020-05-13 07:02] LABS: Basophils % (A) 0 %; Eosinophils # (A) 0.2 k/uL (0-0.7); Eosinophils % (A) 2 %; HCT 45.1 % (39.0-53.0); HGB 14.1 gm/dL (13.0-17.5); Hypochromasia Slight; Lymphocytes # (A) 2.2 k/uL (1.0-4.8); Lymphocytes % (A) 27 %; MCH 31.2 pg (25.0-35.0); MCHC 31.2 g/dL (31.0-37.0); Mean Platelet Volume 8.1; Monocytes # (A) 0.4 k/uL (0-1.0); Monocytes % (A) 5 %; Neutrophils # (A) 5.2 k/uL (1.3-7.7); Neutrophils % (A) 64 %; Platelet Count 146 k/uL (150-450); RBC 4.51 m/uL (4.30-5.90); RDW 13.7 % (11.5-15.5); WBC 8.1 k/uL (3.8-10.6)
[2020-05-13 07:11] LABS: African American GFR (CKD) >90 (>60 ml/min/1.73 sqM); Anion Gap 5 mmol/L; Blood Urea Nitrogen 14 mg/dL (9-20); Calcium 8.9 mg/dL (8.4-10.2); Carbon Dioxide 36 mmol/L (22-30); Chloride 99 mmol/L (98-107); Glucose 222 mg/dL (74-99); Non-African American GFR(CKD) >90 (>60 ml/min/1.73 sqM); Potassium 3.6 mmol/L (3.5-5.1); Sodium 140 mmol/L (137-145)
[2020-05-13] MEDS: PHENYTOIN SODIUM EXTENDED 100 MG CAP PO SCH ×2 (09:38→20:05)
[2020-05-13] MEDS ORDERED: hydrOXYzine HCL 25 MG TAB PO PRN (12:35)
[2020-05-13] MEDS ORDERED: ALBUTEROL NEBULIZED 2.5 MG/3 ML INHALATION PRN ×2 (12:35)
[2020-05-13] MEDS ORDERED: NITROGLYCERIN SL TABS 0.4 MG TAB SUBLINGUAL PRN (12:35)
[2020-05-13] MEDS ORDERED: DICLOFENAC SODIUM GEL 100 GM TUBE TOPICAL PRN (12:35)
--- NOTE | 2020-05-13 12:59 | P.HPIM ---
History of Present Illness H&P Date: 05/13/20 Chief Complaint: Syncope versus seizure Power is a 59-year-old male well-known patient of Dr. Teran's with a past medical history of myocardial infarction C disorder SLE COPD on 3 L home O2, who is often not compliant with his oxygen presented to the emergency department with a syncopal episode. Patient reports that he was sitting watching television and he did admit to not having his accident on Friday on the floor propped himself up with a pillow and he felt like he was going to pass out his developed double vision. His found him with a downtime of approximately 10 minutes EMS was called. EMS arrived. The patient cyanotic was completely unresponsive the bag right really thin and he became fully arousable observers said that there was no grand mal seizure-like activity. And no postictal phase. Review of Systems Constitutional: Reports as per HPI Ears, nose, mouth and throat: Reports as per HPI Cardiovascular: Reports as per HPI Respiratory: Reports home oxygen Gastrointestinal: Reports as per HPI Genitourinary: Reports as per HPI Integumentary: Reports as per HPI Neurological: Reports syncope (Versus seizure) Endocrine: Reports as per HPI Hematologic/Lymphatic: Reports as per HPI Past Medical History Past Medical History: Asthma, Coronary Artery Disease (CAD), Chest Pain / Angina, Heart Failure, COPD, CVA/TIA, GERD/Reflux, Hyperlipidemia, Hypertension, Myocardial Infarction (LA), Osteoarthritis (OA), Pneumonia, Renal Disease, S eizure Disorder, Sleep Apnea/CPAP/BIPAP Additional Past Medical History / Comment(s): last seizure - 2014, hiatal hernia, chronic back pain, 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, lupus, continuous oxygen use at 3L, no cpap used, kidney failure with hemodilaysis in the past, 3 LA's, hypoglycemia Last Myocardial Infarction Date:: 2016 History of Any Multi-Drug Resistant Organisms: None Reported Past Surgical History: Cholecystectomy, Heart Catheterization, Heart Catheterization With Stent, Tonsillectomy Additional Past Surgical History / Comment(s): STATES 3 cardiac stents, Past Anesthesia/Blood Transfusion Reactions: No Reported Reaction Additional Past Anesthesia/Blood Transfusion Reaction / Comment(s): blood transfusion-no reaction, unknown family hx per spouse Date of Last Stent Placement:: 2016 Past Psychological History: Anxiety, Depression Smoking Status: Current every day smoker Past Alcohol Use History: None Reported Past Drug Use History: None Reported - Past Family History Father Family Medical History: Myocardial Infarction (LA) Mother Family Medical History: Asthma, Cancer, COPD Medications and Allergies Home Medications Medication Instructions Recorded Confirmed Type Metoprolol Tartrate [Lopressor] 25 mg PO BID #60 tab 09/18/15 05/12/20 Rx Loratadine [Claritin] 10 mg PO DAILY 05/21/16 05/12/20 History PARoxetine [Paxil] 20 mg PO DAILY 05/21/16 05/12/20 History Phenytoin Sodium Extended 200 mg PO BID 05/21/16 05/12/20 History [Dilantin] Clopidogrel Bisulfate [Clopidogrel] 75 mg PO DAILY 05/22/16 05/12/20 History Magnesium Oxide [Mag-Ox] 400 mg PO DAILY #30 tablet 07/11/16 05/12/20 Rx rOPINIRole HCL [Requip] 1 mg PO BID 08/30/16 05/12/20 History Atorvastatin [Lipitor] 20 mg PO HS 10/03/17 05/12/20 History Mycophenolate Mofetil [Cellcept] 1,000 mg PO DAILY 10/03/17 05/12/20 History Theophylline Anhydrous 400 mg PO DAILY 10/03/17 05/12/20 History [Theophylline] Ergocalciferol (Vitamin D2) 50,000 unit PO Q7D 02/04/18 05/12/20 History [Vitamin D2] Montelukast [Singulair] 10 mg PO DAILY@1500 02/04/18 05/12/20 History Nitroglycerin Sl Tabs [Nitrostat] 0.4 mg SUBLINGUAL Q5M PRN 02/04/18 05/12/20 History Potassium Chloride [Klor-Con 20] 20 meq PO DAILY 02/04/18 05/12/20 History Potassium Chloride [Klor-Con 20] 40 meq PO HS 02/04/18 05/12/20 History Umeclidinium [place] [Incruse 1 puff INHALATION RT-DAILY 02/04/18 05/12/20 History Ellipta] allopurinoL [Zyloprim] 100 mg PO DAILY 02/04/18 05/12/20 History Isosorbide Mononitrate ER [Imdur] 30 mg PO DAILY #30 tab 02/05/18 05/12/20 Rx Albuterol Inhaler (Mhu) [Ventolin 2 puff INHALATION RT-QID PRN 08/05/19 05/12/20 History Hfa Inhaler (Mhu)] Albuterol Nebulized [Ventolin 2.5 mg INHALATION RT-QID PRN 08/05/19 05/12/20 History Nebulized] Beclomethasone Dip 80 Mcg/Puff 2 puff INHALATION RT-BID 08/05/19 05/12/20 History [Qvar 80 mcg] Calcium Acetate [PhosLo] 667 mg PO DAILY 08/05/19 05/12/20 History Furosemide [Lasix] 80 mg PO BID 08/05/19 05/12/20 History Varenicline [Chantix Continuing 1 mg PO DAILY 08/05/19 05/12/20 History Pack] hydrOXYzine HCL [Atarax] 25 mg PO Q8H PRN 08/05/19 05/12/20 History mycophenolate mofetiL [Cellcept] 500 mg PO HS 08/05/19 05/12/20 History predniSONE 5 mg PO DAILY #0 08/09/19 05/12/20 Rx Aspirin 325 mg PO DAILY 05/12/20 05/12/20 History Diclofenac Sodium Gel [Voltaren 4 gm TOPICAL QID PRN 05/12/20 05/12/20 History Gel] Famotidine 20 mg PO DAILY 05/12/20 05/12/20 History HYDROcodone/APAP 7.5-325MG [Cammal 1 tab PO Q6H PRN 05/12/20 05/12/20 History 7.5-325] Multivitamins, Thera [Multivitamin 1 tab PO DAILY 05/12/20 05/12/20 History (formulary)] modafiniL [Provigil] 200 mg PO DAILY 05/12/20 05/12/20 History Allergies Allergy/AdvReac Type Severity Reaction Status Date / Time Penicillins Allergy Severe Swelling Verified 05/12/20 19:49 Iodinated Contrast Media Allergy Swelling Verified 05/12/20 19:49 [Iodinated Contrast- Oral and IV Dye] iodine Allergy Itching, Verified 05/12/20 19:49 Hives phenobarbital AdvReac Drowsiness Verified 05/12/20 19:49 Physical Exam Osteopathic Statement: *. No significant issues noted on an osteopathic structural exam other than those noted in the History and Physical/Consult. Vitals: Vital Signs Temp Pulse Pulse Resp BP BP Pulse Ox 05/13/20 09:35 97.7 F 70 18 121/73 93 L 05/13/20 00:00 20 05/12/20 21:38 73 113 H 94 L 05/12/20 19:33 61 16 115/79 94 L 05/12/20 19:00 63 18 125/106 93 L 05/12/20 18:40 63 20 118/62 93 L 05/12/20 18:30 72 18 147/106 94 L 05/12/20 18:00 68 18 161/87 92 L 05/12/20 17:30 71 20 126/70 93 L 05/12/20 17:00 69 18 111/57 92 L 05/12/20 15:57 98.8 F 79 18 80/61 94 L Intake and Output 05/12/20 05/13/20 05/13/20 22:59 06:59 14:59 Intake Total 240 Balance 240 Intake: Oral 240 Other: Voiding Method Urinal # Voids 1 2 Weight 106.141 kg General: [Patient awake, alert and oriented times 3. Patient in no acute distress.] HEENT: [PERRL. EOMI. No pharyngeal erythema or exudate.] Neck: [No adenopathy.] Cardiac: [Heart regular in rate and rhythm. No S3. No S4. No clicks, rubs. No murmur.] Lungs: [Clear to auscultation bilaterally.] Abdomen: [No mass. No organomegaly. Bowel sounds presnt and normoactive in all 4 quadrants.] Extremes: [No edema no cyanosis no claudication normal pulses] : Normal male genitalia Musculoskeletal: [No joint erythema, edema or tenderness.] Skin: [No rash.] Neurologic: [No lateralizing deficits. CN II - XII grossly intact.] Lymphatic: [No adenopathy.] Results CBC & Chem 7: 05/13/20 06:15 05/13/20 06:15 Labs: Abnormal Lab Results - Last 24 Hours (Table) 05/12/20 05/12/20 05/13/20 Range/Units 16:16 17:03 06:15 Plt Count 146 L (150-450) k/uL Carbon Dioxide 36 H (22-30) mmol/L Glucose 180 H (74-99) mg/dL Alkaline Phosphatase 157 H (38-126) U/L Urine Opiates Screen Detected H (NotDetected) Ur Barbiturates Screen Detected H (NotDetected) 05/13/20 Range/Units 06:15 Plt Count (150-450) k/uL Carbon Dioxide 36 H (22-30) mmol/L Glucose 222 H (74-99) mg/dL Alkaline Phosphatase (38-126) U/L Urine Opiates Screen (NotDetected) Ur Barbiturates Screen (NotDetected) Thrombosis Risk Factor Assmnt - Choose All That Apply Each Factor Represents 1 point: Acute LA, Age 41-60 years, Heart failure (<1month), Obesity (BMI >25) Other Risk Factors: No Other congenital or acquired thrombophilia - If yes, enter type in comment: No Thrombosis Risk Factor Assessment Total Risk Factor Score: 4 Thrombosis Risk Factor Assessment Level: Moderate Risk Assessment and Plan (1) Episode of syncope Current Visit: Yes Status: Acute Code(s): R55 - SYNCOPE AND COLLAPSE SNOMED Code(s): 402508704 (2) Chronic respiratory failure Current Visit: Yes Status: Acute Code(s): J96.10 - CHRONIC RESPIRATORY FAILURE, UNSP W HYPOXIA OR HYPERCAPNIA SNOMED Code(s): 03480847 (3) Hypoxia Current Visit: Yes Status: Acute Code(s): R09.02 - HYPOXEMIA SNOMED Code(s): 456204587 (4) Syncope Current Visit: Yes Status: Acute Code(s): R55 - SYNCOPE AND COLLAPSE SNOMED Code(s): 719975859 (5) Anemia of chronic disease Current Visit: No Status: Acute Code(s): D63.8 - ANEMIA IN OTHER CHRONIC DISEASES CLASSIFIED ELSEWHERE SNOMED Code(s): 994130028 (6) COPD (chronic obstructive pulmonary disease) Current Visit: No Status: Acute Code(s): J44.9 - CHRONIC OBSTRUCTIVE PULMONARY DISEASE, UNSPECIFIED SNOMED Code(s): 45472804 (7) HTN (hypertension) Current Visit: No Status: Acute Code(s): I10 - ESSENTIAL (PRIMARY) HYPERTEN ROLAND SNOMED Code(s): 90338521 (8) Ischemic heart disease Current Visit: No Status: Acute Code(s): I25.9 - CHRONIC ISCHEMIC HEART DISEASE, UNSPECIFIED SNOMED Code(s): 580976223 (9) Nicotine addiction Current Visit: No Status: Acute Code(s): F17.200 - NICOTINE DEPENDENCE, UNSPECIFIED, UNCOMPLICATED SNOMED Code(s): 45523757 (10) Nicotine dependence Current Visit: No Status: Acute Code(s): F17.200 - NICOTINE DEPENDENCE, UNSPECIFIED, UNCOMPLICATED SNOMED Code(s): 24814983 (11) Systolic CHF, acute on chronic Current Visit: No Status: Acute Code(s): I50.23 - ACUTE ON CHRONIC SYSTOLIC (CONGESTIVE) HEART FAILURE SNOMED Code(s): 427956880 Plan: Syncopal episode versus seizure Dilantin level Carotid duplex Echocardiogram Reevaluate patient in the morning Time with Patient: Greater than 30
[2020-05-13] MEDS: HYDROcodone/APAP 7.5-325MG 1 EACH TAB PO PRN ×2 (13:40→20:05)
[2020-05-13] MEDS: ASPIRIN 325 MG TAB PO SCH (14:06)
[2020-05-13] MEDS: FAMOTIDINE 20 MG TAB PO SCH (14:06)
[2020-05-13] MEDS: PARoxetine 20 MG TAB PO SCH (14:07)
[2020-05-13] MEDS: MAGNESIUM OXIDE 400 MG TAB PO SCH (14:07)
[2020-05-13] MEDS: METOPROLOL TARTRATE 25 MG TAB PO SCH ×2 (14:07→20:08)
[2020-05-13] MEDS: ISOSORBIDE MONONITRATE ER 30 MG TAB.ER.24H PO SCH (14:07)
[2020-05-13] MEDS: CLOPIDOGREL 75 MG TAB PO SCH (14:07)
[2020-05-13] MEDS: allopurinoL 100 MG TAB PO SCH (14:08)
[2020-05-13] MEDS: FUROSEMIDE 80 MG TAB PO SCH ×2 (14:08→23:17)
[2020-05-13] MEDS: LORATADINE 10 MG TAB PO SCH (14:10)
[2020-05-13] MEDS: THEOPHYLLINE 24 HOUR 400 MG CAP.ER.24H PO SCH (14:54)
[2020-05-13] MEDS: VARENICLINE 1 MG TAB PO SCH (14:54)
[2020-05-13] MEDS: predniSONE 5 MG TAB PO SCH (14:55)
[2020-05-13] MEDS ORDERED: MONTELUKAST 10 MG TAB PO SCH (15:00)
[2020-05-13] MEDS: IPRATROPIUM 0.5 MG/2.5 ML NEBU INHALATION SCH ×2 (15:32→20:29)
[2020-05-13] MEDS ORDERED: FUROSEMIDE 80 MG TAB PO SCH (16:00)
--- NOTE | 2020-05-13 16:44 | US ---
EXAMINATION TYPE: US carotid duplex BILAT DATE OF EXAM: 05/13/2020 COMPARISON: NONE CLINICAL HISTORY: Syncopal episode. EXAM MEASUREMENTS: RIGHT: Peak Systolic Velocity (PSV) cm/sec ----- Right CCA: 82.0 ----- Right ICA: 54.6 ----- Right ECA: 157.4 ICA/CCA ratio: 0.7 RIGHT: End Diastole cm/sec ----- Right CCA: 10.3 ----- Right ICA: 18.1 ----- Right ECA: 11.6 LEFT: Peak Systolic Velocity (PSV) cm/sec ----- Left CCA: 76.2 ----- Left ICA: 56.8 ----- Left ECA: 127.9 ICA/CCA ratio: 0.7 LEFT: End Diastole cm/sec ----- Left CCA: 14.1 ----- Left ICA: 12.8 ----- Left ECA: 7.7 VERTEBRALS (direction of flow): Right Vertebral: Antegrade Left Vertebral: Antegrade Rhythm: Normal Mild amount of plaque visualized bilateral bulbs. Elevated velocities visualized bilateral ECAs IMPRESSION: There is antegrade flow in the vertebral arteries. There is bilateral plaque formation at the carotid artery bifurcations. Images and measurements suggest less than 25% stenosis in both internal carotid arteries. There is bilateral elevated velocities in the external carotid arteries that is consistent with 50-70% stenosis. Criteria for Assigning % of Stenosis / Diameter reduction (Estimation based on the indirect measurements of the internal carotid artery velocities (ICA PSV). 1. Normal (no stenosis)=ICA PSV < 125 cm/s: ratio < 2.0: ICA EDV<40 cm/s. 2. Less than 50% stenosis=ICA PSV < 125 cm/s: ratio < 2.0: ICA EDV<40 cm/s. 3. 50 to 69% stenosis=ICA PSV of 125 to 230 cm/s: ration 2.0 ? 4.0: ICA EDV 40-100 cm/s. 4. Greater than 70% stenosis to near occlusion= ICA PSV > 230 cm/s: ratio > 4.0: ICA EDV > 100 cm/s. 5. Near occlusion= ICA PSV velocities may be low or undetectable: variable ratio and ICA EDV. 6. Total occlusion=unable to detect flow.
[2020-05-13] MEDS ORDERED: CALCIUM ACETATE 667 MG TAB PO SCH (17:30)
[2020-05-13] MEDS: FLUTICASONE 110 MCG INHALER INHALATION SCH (20:29)
[2020-05-13] MEDS ORDERED: ATORVASTATIN 20 MG TAB PO SCH (21:00)
[2020-05-13] MEDS ORDERED: POTASSIUM CHLORIDE ER 20 MEQ TAB.ER PO SCH (21:00)
[2020-05-13] MEDS ORDERED: METOPROLOL TARTRATE 25 MG TAB PO SCH (21:00)
[2020-05-14] MEDS: HYDROcodone/APAP 7.5-325MG 1 EACH TAB PO PRN ×2 (02:07→08:21)
[2020-05-14] MEDS: FLUTICASONE 110 MCG INHALER INHALATION SCH (07:39)
[2020-05-14] MEDS: IPRATROPIUM 0.5 MG/2.5 ML NEBU INHALATION SCH (07:39)
[2020-05-14 08:18] VITALS: TEMP 98.1
[2020-05-14] MEDS: METOPROLOL TARTRATE 25 MG TAB PO SCH (08:18)
[2020-05-14] MEDS: FAMOTIDINE 20 MG TAB PO SCH (08:19)
[2020-05-14] MEDS: ASPIRIN 325 MG TAB PO SCH (08:19)
[2020-05-14] MEDS: PHENYTOIN SODIUM EXTENDED 100 MG CAP PO SCH (08:19)
[2020-05-14] MEDS: allopurinoL 100 MG TAB PO SCH (08:20)
[2020-05-14] MEDS: ISOSORBIDE MONONITRATE ER 30 MG TAB.ER.24H PO SCH (08:20)
[2020-05-14] MEDS: CLOPIDOGREL 75 MG TAB PO SCH (08:20)
[2020-05-14] MEDS: LORATADINE 10 MG TAB PO SCH (08:20)
[2020-05-14] MEDS: MAGNESIUM OXIDE 400 MG TAB PO SCH (08:21)
[2020-05-14] MEDS: FUROSEMIDE 80 MG TAB PO SCH (08:21)
[2020-05-14] MEDS: PARoxetine 20 MG TAB PO SCH (08:22)
[2020-05-14] MEDS: VARENICLINE 1 MG TAB PO SCH (08:22)
[2020-05-14] MEDS: predniSONE 5 MG TAB PO SCH (08:22)
[2020-05-14] MEDS: THEOPHYLLINE 24 HOUR 400 MG CAP.ER.24H PO SCH (08:22)
[2020-05-14] MEDS ORDERED: allopurinoL 100 MG TAB PO SCH (09:00)
[2020-05-14] MEDS ORDERED: ASPIRIN 325 MG TAB PO SCH (09:00)
[2020-05-14] MEDS ORDERED: CLOPIDOGREL 75 MG TAB PO SCH (09:00)
[2020-05-14] MEDS ORDERED: ISOSORBIDE MONONITRATE ER 30 MG TAB.ER.24H PO SCH (09:00)
[2020-05-14] MEDS ORDERED: VARENICLINE 1 MG TAB PO SCH (09:00)
[2020-05-14] MEDS ORDERED: LORATADINE 10 MG TAB PO SCH (09:00)
[2020-05-14] MEDS ORDERED: PARoxetine 20 MG TAB PO SCH (09:00)
[2020-05-14] MEDS ORDERED: CALCIUM ACETATE 667 MG TAB PO SCH (09:00)
[2020-05-14] MEDS ORDERED: predniSONE 5 MG TAB PO SCH (09:00)
[2020-05-14] MEDS ORDERED: MAGNESIUM OXIDE 400 MG TAB PO SCH (09:00)
[2020-05-14] MEDS ORDERED: THEOPHYLLINE 24 HOUR 400 MG CAP.ER.24H PO SCH (09:00)
[2020-05-14] MEDS ORDERED: FAMOTIDINE 20 MG TAB PO SCH (09:00)
[2020-05-14] MEDS ORDERED: MULTIVITAMINS, THERA 1 EACH TAB PO SCH (09:00)
[2020-05-14] MEDS ORDERED: POTASSIUM CHLORIDE ER 20 MEQ TAB.ER PO SCH (09:00)
--- NOTE | 2020-05-14 11:57 | P.PN ---
Subjective Progress Note Date: 05/14/20 Principal diagnosis: Syncope episode versus seizure This patient is awake alert oriented 3 currently undergoing diet treatment for COPD responding completely appropriately. Upon reviewing labs noticed that his Dilantin level was subtherapeutic in the mid 4.3 area suspect that this patient may in fact have had a seizure because his Dilantin was subtherapeutic will oral load patient with 300 mg every 2 hours 2 doses and anticipate being able to send patient home today Objective - Vital Signs Vital signs: Vital Signs Temp 98.1 F 05/14/20 08:10 Pulse 66 05/14/20 11:17 Resp 18 05/14/20 08:10 BP 145/88 05/14/20 08:10 Pulse Ox 92 L 05/14/20 08:10 Intake & Output 05/13/20 05/14/20 05/14/20 18:59 06:59 18:59 Intake Total 906 Balance 906 Weight 103.6 kg Intake: Oral 906 Other: Voiding Method Urinal Urinal Urinal # Voids 1 1 2 # Bowel Movements 1 - Exam General: [Patient awake, alert and oriented times 3. Patient in no acute distress.] HEENT: [PERRL. EOMI. No pharyngeal erythema or exudate.] Neck: [No adenopathy.] Cardiac: [Heart regular in rate and rhythm. No S3. No S4. No clicks, rubs. No m urmur.] Lungs: [Clear to auscultation bilaterally.] Abdomen: [No mass. No organomegaly. Bowel sounds presnt and normoactive in all 4 quadrants.] Extremes: [No edema no cyanosis no claudication normal pulses] : Normal male genitalia Musculoskeletal: [No joint erythema, edema or tenderness.] Skin: [No rash.] Neurologic: [No lateralizing deficits. CN II - XII grossly intact.] Lymphatic: [No adenopathy.] - Labs CBC & Chem 7: 05/13/20 06:15 05/13/20 06:15 Assessment and Plan (1) Episode of syncope Current Visit: Yes Status: Acute Code(s): R55 - SYNCOPE AND COLLAPSE SNOMED Code(s): 051143619 (2) Chronic respiratory failure Current Visit: Yes Status: Acute Code(s): J96.10 - CHRONIC RESPIRATORY FAILURE, UNSP W HYPOXIA OR HYPERCAPNIA SNOMED Code(s): 23110603 (3) Hypoxia Current Visit: Yes Status: Acute Code(s): R09.02 - HYPOXEMIA SNOMED Code(s): 579769562 (4) Syncope Current Visit: Yes Status: Acute Code(s): R55 - SYNCOPE AND COLLAPSE SNOMED Code(s): 487325212 (5) Anemia of chronic disease Current Visit: No Status: Acute Code(s): D63.8 - ANEMIA IN OTHER CHRONIC DISEASES CLASSIFIED ELSEWHERE SNOMED Code(s): 389262125 (6) COPD (chronic obstructive pulmonary disease) Current Visit: No Status: Acute Code(s): J44.9 - CHRONIC OBSTRUCTIVE PULMONARY DISEASE, UNSPECIFIED SNOMED Code(s): 40014465 (7) HTN (hypertension) Current Visit: No Status: Acute Code(s): I10 - ESSENTIAL (PRIMARY) HYPERTENSION SNOMED Code(s): 94715586 (8) Ischemic heart disease Current Visit: No Status: Acute Code(s): I25.9 - CHRONIC ISCHEMIC HEART DISEASE, UNSPECIFIED SNOMED Code(s): 529648794 (9) Nicotine addiction Current Visit: No Status: Acute Code(s): F17.200 - NICOTINE DEPENDENCE, UNSPECIFIED, UNCOMPLICATED SNOMED Code(s): 35816750 (10) Nicotine dependence Current Visit: No Status: Acute Code(s): F17.200 - NICOTINE DEPENDENCE, UNSPECIFIED, UNCOMPLICATED SNOMED Code(s): 60428738 (11) Systolic CHF, acute on chronic Current Visit: No Status: Acute Code(s): I50.23 - ACUTE ON CHRONIC SYSTOLIC (CONGESTIVE) HEART FAILURE SNOMED Code(s): 299277404 Plan: Syncopal episode versus seizure Dilantin level 4.3 Carotid duplex stable Echocardiogram Can do as outpatient Oral load Dilantin anticipate patient discharge following Time with Patient: Greater than 30
[2020-05-14] MEDS ORDERED: PHENYTOIN SODIUM EXTENDED 100 MG CAP PO STA (12:05)
[2020-05-14 12:25] VITALS: BP 120/71; PULSE 67; RESP 16
[2020-05-14] MEDS ORDERED: PHENYTOIN SODIUM EXTENDED 100 MG CAP PO ONE (14:00)
[2020-05-14] MEDS ORDERED: PHENYTOIN SODIUM EXTENDED 100 MG CAP PO SCH (21:00)
[2020-05-15] MEDS ORDERED: ERGOCALCIFEROL 50,000 UNIT CAP PO SCH (09:00)
== END 2020-05-14 12:51 | disposition left against medical advice (07) ==
LOC: EC 15:49 → 4SSUR 17:28 → 3SCARD 20:27
PROVIDERS: ADMIT Family Medicine; ATTEND Family Medicine
DX: R55 Syncope and collapse (principal); J44.9 Chronic obstructive pulmonary disease, unspecified; I25.2 Old myocardial infarction; G40.909 Epilepsy, unspecified, not intractable, without status epilepticus; M32.9 Systemic lupus erythematosus, unspecified; M17.0 Bilateral primary osteoarthritis of knee; R23.0 Cyanosis; R19.5 Other fecal abnormalities; J96.11 Chronic respiratory failure with hypoxia; I11.0 Hypertensive heart disease with heart failure; I50.23 Acute on chronic systolic (congestive) heart failure; I25.10 Atherosclerotic heart disease of native coronary artery without angina pectoris; K21.9 Gastro-esophageal reflux disease without esophagitis; E78.5 Hyperlipidemia, unspecified; M19.90 Unspecified osteoarthritis, unspecified site; G47.30 Sleep apnea, unspecified; G89.29 Other chronic pain; M54.9 Dorsalgia, unspecified; F41.9 Anxiety disorder, unspecified; F32.9 Major depressive disorder, single episode, unspecified; N28.9 Disorder of kidney and ureter, unspecified; E66.9 Obesity, unspecified; Z68.33 Body mass index [BMI] 33.0-33.9, adult; D63.8 Anemia in other chronic diseases classified elsewhere; Z90.49 Acquired absence of other specified parts of digestive tract; Z95.5 Presence of coronary angioplasty implant and graft; Z99.81 Dependence on supplemental oxygen; Z79.899 Other long term (current) drug therapy; Z79.82 Long term (current) use of aspirin; Z79.891 Long term (current) use of opiate analgesic; Z91.041 Radiographic dye allergy status; Z88.0 Allergy status to penicillin; Z88.8 Allergy status to other drugs, medicaments and biological substances; Z91.048 Other nonmedicinal substance allergy status; Z86.73 Personal history of transient ischemic attack (TIA), and cerebral infarction without residual deficits; Z87.01 Personal history of pneumonia (recurrent); F17.200 Nicotine dependence, unspecified, uncomplicated; Z91.19 Patient's noncompliance with other medical treatment and regimen; Z82.49 Family history of ischemic heart disease and other diseases of the circulatory system; Z82.5 Family history of asthma and other chronic lower respiratory diseases; Z80.9 Family history of malignant neoplasm, unspecified
CPT/HCPCS: 96361; 96374; 99285; 36415; 94640 ×4; 93005; 85379; 80186; 80053; 80048; 80185; 83735; 80198; 84484; 85025 ×2; 85610; 85730; 82272; 81003; 80306; 71046; 93880; 93970; G0378 ×4; J7517 ×2; J2270; J7512 ×2

== ENCOUNTER → 2020-05-19 | Outpatient (CLI) | payer OTHER ==
--- NOTE | 2020-05-19 18:00 | ECHOF ---
Referral Reason:R55 Syncope Collapse MEASUREMENTS -------- HEIGHT: 175.3 cm WEIGHT: 103.4 kg BP: RVIDd: 4.6 cm (< 3.3) IVSd: 1.4 cm (0.6 - 1.1) LVIDd: 5.0 cm (3.9 - 5.3) LVPWd: 1.6 cm (0.6 - 1.1) IVSs: 2.2 cm LVIDs: 3.4 cm LVPWs: 1.7 cm LAESV Index (A-L): 23.29 ml/m Ao Diam: 3.4 cm (2.0 - 3.7) AV Cusp: 1.4 cm (1.5 - 2.6) MV E Tony: 0.35 m/s MV DecT: 216 ms MV A Tony: 0.52 m/s MV E/A Ratio: 0.69 FINDINGS -------- Sinus rhythm. This was a technically difficult study with suboptimal views. The left ventricular size is normal. There is moderate concentric left ventricular hypertrophy. O verall left ventricular systolic function is low-normal with, an EF between 50 - 55 %. The right ventricle is mild to moderately enlarged. Normal LA size by volume 22+/-6 ml/m2. The right atrium is mildly enlarged. 5.0mg of Lumason was utilized for enhancement of images Interatrial and interventricular septum intact. The aortic valve was not well visualized. There is no evidence of aortic regurgitation. There is no evidence of aortic stenosis. Mild mitral regurgitation is present. The tricuspid valve was not well visualized. Unable to estimate RVSP due to inadequate TR jet spect ral doppler profile. There is no pulmonic regurgitation present. The aortic root size is normal. Normal inferior vena cava with normal inspiratory collapse consistent with estimated right atrial pre ssure of 5 mmHg. There is no pericardial effusion. CONCLUSIONS -------- 1. The left ventricular size is normal. 2. There is moderate concentric left ventricular hypertrophy. 3. Overall left ventricular systolic function is low-normal with, an EF between 50 - 55 %. 4. The right ventricle is mild to moderately enlarged. 5. The right atrium is mildly enlarged. 6. Mild mitral regurgitation is present. PRINCIPAL CONSULTING ENGINEER: Medina Marley [facility]
== END | disposition home or self-care (01) ==
LOC: RADECHMAIN 12:01
PROVIDERS: ATTEND Family Medicine
DX: I34.0 Nonrheumatic mitral (valve) insufficiency (principal); I51.7 Cardiomegaly; Z88.0 Allergy status to penicillin; Z91.048 Other nonmedicinal substance allergy status; Z88.8 Allergy status to other drugs, medicaments and biological substances
CPT/HCPCS: C8929; Q9950; 93306

== ENCOUNTER → 2020-05-22 | Outpatient (CLI) | payer OTHER ==
[2020-05-22 14:38] LABS: Basophils % (A) 0 %; Eosinophils # (A) 0.2 k/uL (0-0.7); Eosinophils % (A) 2 %; HCT 48.5 % (39.0-53.0); HGB 15.2 gm/dL (13.0-17.5); Lymphocytes # (A) 2.3 k/uL (1.0-4.8); Lymphocytes % (A) 25 %; MCH 30.3 pg (25.0-35.0); MCHC 31.3 g/dL (31.0-37.0); MCV 96.6 fL (80.0-100.0); Monocytes # (A) 0.4 k/uL (0-1.0); Monocytes % (A) 4 %; Neutrophils # (A) 6.4 k/uL (1.3-7.7); Neutrophils % (A) 67 %; Platelet Count 172 k/uL (150-450); RBC 5.03 m/uL (4.30-5.90); RDW 13.6 % (11.5-15.5); WBC 9.5 k/uL (3.8-10.6)
[2020-05-22 19:24] LABS: African American GFR (CKD) 107.2 (60.0-200.0); Anion Gap 10.1 mmol/L (4.00-12.00); BUN/Creat Ratio 12.22 Ratio (12.00-20.00); Calcium 9.7 mg/dL (8.7-10.3); Carbon Dioxide 29.9 mmol/L (21.6-31.8); Non-African American GFR(CKD) 92.5 (60.0-200.0); Potassium 4.5 mmol/L (3.5-5.5)
== END | disposition home or self-care (01) ==
LOC: LABWHC1 11:06
PROVIDERS: ATTEND Family Medicine
DX: G40.89 Other seizures (principal); R55 Syncope and collapse
CPT/HCPCS: 36415; 80048; 83735; 85025

== ENCOUNTER → 2020-10-11 | Outpatient (CLI) | payer OTHER ==
[2020-10-11 12:34] LABS: Basophils % (A) 0 %; Eosinophils # (A) 0.1 k/uL (0-0.7); Eosinophils % (A) 1 %; HGB 17.7 gm/dL (13.0-17.5); Hypochromasia Slight; Lymphocytes # (A) 1.4 k/uL (1.0-4.8); Lymphocytes % (A) 14 %; MCH 32.8 pg (25.0-35.0); MCHC 31.7 g/dL (31.0-37.0); MCV 103.3 fL (80.0-100.0); Macrocytosis Slight; Mean Platelet Volume 7.4; Monocytes # (A) 0.4 k/uL (0-1.0); Monocytes % (A) 4 %; Neutrophils # (A) 8.2 k/uL (1.3-7.7); Neutrophils % (A) 80 %; Platelet Count 131 k/uL (150-450); RBC 5.41 m/uL (4.30-5.90); RDW 13.8 % (11.5-15.5); WBC 10.2 k/uL (3.8-10.6)
[2020-10-11 12:51] LABS: HCT 55.9 % (39.0-53.0)
[2020-10-11 21:20] LABS: African American GFR (CKD) 107.2 (60.0-200.0); Anion Gap 14.1 mmol/L (4.00-12.00); BUN/Creat Ratio 14.44 Ratio (12.00-20.00); Calcium 9.4 mg/dL (8.7-10.3); Carbon Dioxide 35.9 mmol/L (21.6-31.8); Non-African American GFR(CKD) 92.5 (60.0-200.0); Potassium 4.4 mmol/L (3.5-5.5)
== END | disposition home or self-care (01) ==
LOC: LABWHC1 11:23
PROVIDERS: ATTEND Family Medicine
DX: J44.1 Chronic obstructive pulmonary disease with (acute) exacerbation (principal); K92.2 Gastrointestinal hemorrhage, unspecified
CPT/HCPCS: 36415; 80048; 85025

== ENCOUNTER 2020-11-15 14:55 | Inpatient (IN) | payer OTHER ==
[2020-11-15] MEDS ORDERED: HYDROcodone/APAP 5-325MG 1 EACH TAB PO STA (15:25)
[2020-11-15] MEDS ORDERED: IPRATROPIUM-ALBUTEROL 3 ML NEB INHALATION STA (15:26)
--- NOTE | 2020-11-15 15:31 | ED ---
General Adult HPI - General Chief complaint: Shortness of Breath Stated complaint: SOB Time Seen by Provider: 11/15/20 15:15 Source: patient, family, RN notes reviewed Mode of arrival: wheelchair Limitations: no limitations - History of Present Illness Initial comments: Patient is a pleasant 60-year-old male presenting to the emergency department with difficulty breathing. Patient has chronic dyspnea. Patient has been in the hospital several times a past few months. Patient states symptoms have worsened again the past several days. Patient has cough with occasional green sputum. No fever. Symptoms are similar to previous COPD. No leg pain or leg swelling. Patient does request one of his pain pills. - Related Data Home Medications Medication Instructions Recorded Confirmed Loratadine [Claritin] 10 mg PO DAILY 05/21/16 05/12/20 PARoxetine [Paxil] 20 mg PO DAILY 05/21/16 05/12/20 Phenytoin Sodium Extended 200 mg PO BID 05/21/16 05/12/20 [Dilantin] Clopidogrel Bisulfate [Clopidogrel] 75 mg PO DAILY 05/22/16 05/12/20 rOPINIRole HCL [Requip] 1 mg PO BID 08/30/16 05/12/20 Atorvastatin [Lipitor] 20 mg PO HS 10/03/17 05/12/20 Mycophenolate Mofetil [Cellcept] 1,000 mg PO DAILY 10/03/17 05/12/20 Theophylline Anhydrous 400 mg PO DAILY 10/03/17 05/12/20 [Theophylline] Ergocalciferol (Vitamin D2) 50,000 unit PO Q7D 02/04/18 05/12/20 [Vitamin D2] Montelukast [Singulair] 10 mg PO DAILY@1500 02/04/18 05/12/20 Nitroglycerin Sl Tabs [Nitrostat] 0.4 mg SUBLINGUAL Q5M PRN 02/04/18 05/12/20 Potassium Chloride [Klor-Con 20] 20 meq PO DAILY 02/04/18 05/12/20 Potassium Chloride [Klor-Con 20] 40 meq PO HS 02/04/18 05/12/20 Umeclidinium [place] [Incruse 1 puff INHALATION RT-DAILY 02/04/18 05/12/20 Ellipta] allopurinoL [Zyloprim] 100 mg PO DAILY 02/04/18 05/12/20 Albuterol Inhaler (Mhu) [Ventolin 2 puff INHALATION RT-QID PRN 08/05/19 05/12/20 Hfa Inhaler (Mhu)] Albuterol Nebulized [Ventolin 2.5 mg INHALATION RT-QID PRN 08/05/19 05/12/20 Nebulized] Beclomethasone Dip 80 Mcg/Puff 2 puff INHALATION RT-BID 08/05/19 05/12/20 [Qvar 80 mcg] Calcium Acetate [PhosLo] 667 mg PO DAILY 08/05/19 05/12/20 Furosemide [Lasix] 80 mg PO BID 08/05/19 05/12/20 Varenicline [Chantix Continuing 1 mg PO DAILY 08/05/19 05/12/20 Pack] hydrOXYzine HCL [Atarax] 25 mg PO Q8H PRN 08/05/19 05/12/20 mycophenolate mofetiL [Cellcept] 500 mg PO HS 08/05/19 05/12/20 Aspirin 325 mg PO DAILY 05/12/20 05/12/20 Diclofenac Sodium Gel [Voltaren 4 gm TOPICAL QID PRN 05/12/20 05/12/20 Gel] Famotidine 20 mg PO DAILY 05/12/20 05/12/20 HYDROcodone/APAP 7.5-325MG [[place] 1 tab PO Q6H PRN 05/12/20 05/12/20 7.5-325] Multivitamins, Thera [Multivitamin 1 tab PO DAILY 05/12/20 05/12/20 (formulary)] modafiniL [Provigil] 200 mg PO DAILY 05/12/20 05/12/20 Previous Rx's Medication Instructions Recorded Metoprolol Tartrate [Lopressor] 25 mg PO BID #60 tab 09/18/15 Magnesium Oxide [Mag-Ox] 400 mg PO DAILY #30 tablet 07/11/16 Isosorbide Mononitrate ER [Imdur] 30 mg PO DAILY #30 tab 02/05/18 predniSONE 5 mg PO DAILY #0 08/09/19 Allergies Allergy/AdvReac Type Severity Reaction Status Date / Time Penicillins Allergy Severe Swelling Verified 11/15/20 15:03 Iodinated Contrast Media Allergy Swelling Verified 11/15/20 15:03 [Iodinated Contrast- Oral and IV Dye] iodine Allergy Itching, Verified 11/15/20 15:03 Hives phenobarbital AdvReac Drowsiness Verified 11/15/20 15:03 Review of Systems ROS Statement: Those systems with pertinent positive or pertinent negative responses have been documented in the HPI. ROS Other: All systems not noted in ROS Statement are negative. Constitutional: Denies: fever Eyes: Denies: eye pain ENT: Denies: ear pain Respiratory: Reports: cough, dyspnea Cardiovascular: Denies: chest pain Endocrine: Reports: fatigue Gastrointestinal: Denies: abdominal pain Genitourinary: Denies: dysuria Musculoskeletal: Denies: back pain Skin: Denies: rash Neurological: Denies: weakness Past Medical History Past Medical History: Asthma, Coronary Artery Disease (CAD), Chest Pain / Angina, Heart Failure, COPD, CVA/TIA, GERD/Reflux, Hyperlipidemia, Hypertension, Myocardial Infarction ([place]), Osteoarthritis (OA), Pneumonia, Renal Disease, Sei zure Disorder, Sleep Apnea/CPAP/BIPAP Additional Past Medical History / Comment(s): last seizure - 2014, hiatal hernia, chronic back pain, 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, lupus, continuous oxygen use at 3L, no cpap used, kidney failure with hemodilaysis in the past, 3 [place]'s, hypoglycemia Last Myocardial Infarction Date:: 2015 History of Any Multi-Drug Resistant Organisms: None Reported Past Surgical History: Cholecystectomy, Heart Catheterization, Heart Catheterization With Stent, Tonsillectomy Additional Past Surgical History / Comment(s): STATES 3 cardiac stents, Past Anesthesia/Blood Transfusion Reactions: No Reported Reaction Additional Past Anesthesia/Blood Transfusion Reaction / Comment(s): blood transfusion-no reaction, unknown family hx per spouse Date of Last Stent Placement:: 2015 Past Psychological History: Anxiety, Depression Smoking Status: Current every day smoker Past Alcohol Use History: None Reported Past Drug Use History: None Reported - Past Family History Father Family Medical History: Myocardial Infarction ([place]) Mother Family Medical History: Asthma, Cancer, COPD General Exam Limitations: no limitations General appearance: alert, in no apparent distress Head exam: Present: normocephalic Eye exam: Present: normal appearance Neck exam: Present: normal inspection Respiratory exam: Present: wheezes, rales Cardiovascular Exam: Present: regular rate, normal rhythm GI/Abdominal exam: Present: soft. Absent: tenderness Extremities exam: Present: normal inspection. Absent: pedal edema, calf tenderness Neurological exam: Present: alert Psychiatric exam: Present: normal affect, normal mood Skin exam: Present: normal color Course Vital Signs 11/15/20 11/15/20 11/15/20 14:59 16:00 17:00 Temperature 98.3 F Pulse Rate 86 74 71 Respiratory 18 24 22 Rate Blood Pressure 132/91 121/80 146/84 O2 Sat by Pulse 92 L 93 L 90 L Oximetry 11/15/20 11/15/20 17:29 17:42 Temperature Pulse Rate 73 68 Respiratory Rate Blood Pressure O2 Sat by Pulse Oximetry EKG Findings - EKG Comments: EKG Findings:: Sinus rhythm at 83. CA 166. QRS 96. QT 388. QTC 45. Left axis. Incomplete right bundle-branch block. No acute ST change. Medical Decision Making - Medical Decision Making Patient reevaluated and slightly improved. Patient and family updated on results and plan. Case discussed with Dr. Teran, who will admit his patient. - Lab Data Result diagrams: 11/15/20 16:01 11/15/20 16:01 Lab Results 11/15/20 11/15/20 11/15/20 Range/Units 15:59 16:01 16:01 WBC 8.7 (3.8-10.6) k/uL RBC 5.08 (4.30-5.90) m/uL Hgb 16.3 (13.0-17.5) gm/dL Hct 51.2 (39.0-53.0) % MCV 100.9 H (80.0-100.0) fL MCH 32.0 (25.0-35.0) pg MCHC 31.8 (31.0-37.0) g/dL RDW 14.5 (11.5-15.5) % Plt Count 143 L (150-450) k/uL MPV 7.5 Neutrophils % 72 % Lymphocytes % 20 % Monocytes % 5 % Eosinophils % 2 % Basophils % 0 % Neutrophils # 6.3 (1.3-7.7) k/uL Lymphocytes # 1.7 (1.0-4.8) k/uL Monocytes # 0.4 (0-1.0) k/uL Eosinophils # 0.2 (0-0.7) k/uL Basophils # 0.0 (0-0.2) k/uL Macrocytosis Slight PT 9.8 (9.0-12.0) sec INR 0.9 (<1.2) APTT 23.7 (22.0-30.0) sec Sodium (137-145) mmol/L Potassium (3.5-5.1) mmol/L Chloride (98-107) mmol/L Carbon Dioxide (22-30) mmol/L Anion Gap mmol/L BUN (9-20) mg/dL Creatinine (0.66-1.25) mg/dL Est GFR (CKD-EPI)AfAm (>60 ml/min/1.73 sqM) Est GFR (CKD-EPI)NonAf (>60 ml/min/1.73 sqM) Glucose (74-99) mg/dL Plasma Lactic Acid [place] (0.7-2.0) mmol/L Calcium (8.4-10.2) mg/dL Magnesium (1.6-2.3) mg/dL Total Bilirubin (0.2-1.3) mg/dL AST (17-59) U/L ALT (4-49) U/L Alkaline Phosphatase (38-126) U/L Lactate Dehydrogenase (313-618) U/L C-Reactive Protein (<10.0) mg/L Total Protein (6.3-8.2) g/dL Albumin (3.5-5.0) g/dL Coronavirus (PCR) Not Detected (Not Detectd) 11/15/20 11/15/20 Range/Units 16:01 16:01 WBC (3.8-10.6) k/uL RBC (4.30-5.90) m/uL Hgb (13.0-17.5) gm/dL Hct (39.0-53.0) % MCV (80.0-100.0) fL MCH (25.0-35.0) pg MCHC (31.0-37.0) g/dL RDW (11.5-15.5) % Plt Count (150-450) k/uL MPV Neutrophils % % Lymphocytes % % Monocytes % % Eosinophils % % Basophils % % Neutrophils # (1.3-7.7) k/uL Lymphocytes # (1.0-4.8) k/uL Monocytes # (0-1.0) k/uL Eosinophils # (0-0.7) k/uL Basophils # (0-0.2) k/uL Macrocytosis PT (9.0-12.0) sec INR (<1.2) APTT (22.0-30.0) sec Sodium 144 (137-145) mmol/L Potassium 4.5 (3.5-5.1) mmol/L Chloride 99 (98-107) mmol/L Carbon Dioxide 37 H (22-30) mmol/L Anion Gap 8 mmol/L BUN 13 (9-20) mg/dL Creatinine 0.62 L (0.66-1.25) mg/dL Est GFR (CKD-EPI)AfAm >90 (>60 ml/min/1.73 sqM) Est GFR (CKD-EPI)NonAf >90 (>60 ml/min/1.73 sqM) Glucose 150 H (74-99) mg/dL Plasma Lactic Acid [place] 1.2 (0.7-2.0) mmol/L Calcium 9.0 (8.4-10.2) mg/dL Magnesium 2.3 (1.6-2.3) mg/dL Total Bilirubin 0.4 (0.2-1.3) mg/dL AST 20 (17-59) U/L ALT 23 (4-49) U/L Alkaline Phosphatase 146 H (38-126) U/L Lactate Dehydrogenase 486 (313-618) U/L C-Reactive Protein 39.7 H (<10.0) mg/L Total Protein 6.4 (6.3-8.2) g/dL Albumin 4.0 (3.5-5.0) g/dL Coronavirus (PCR) (Not Detectd) - Radiology Data Radiology results: image reviewed (Chest x-ray shows right lower lobe infiltrate) Disposition Clinical Impression: COPD (chronic obstructive pulmonary disease), Pneumonia Disposition: ADMITTED IP TO THIS HOSP Is patient prescribed a controlled substance at d/c from ED?: No Referrals: Damir Teran MD [Primary Care Provider] - 1-2 days Decision Time: 18:05
[2020-11-15 16:38] LABS: Basophils % (A) 0 %; Eosinophils # (A) 0.2 k/uL (0-0.7); Eosinophils % (A) 2 %; HCT 51.2 % (39.0-53.0); HGB 16.3 gm/dL (13.0-17.5); Lymphocytes # (A) 1.7 k/uL (1.0-4.8); Lymphocytes % (A) 20 %; MCHC 31.8 g/dL (31.0-37.0); MCV 100.9 fL (80.0-100.0); Macrocytosis Slight; Mean Platelet Volume 7.5; Monocytes # (A) 0.4 k/uL (0-1.0); Monocytes % (A) 5 %; Neutrophils # (A) 6.3 k/uL (1.3-7.7); Neutrophils % (A) 72 %; Platelet Count 143 k/uL (150-450); RBC 5.08 m/uL (4.30-5.90); RDW 14.5 % (11.5-15.5); WBC 8.7 k/uL (3.8-10.6)
--- NOTE | 2020-11-15 16:50 | XR ---
EXAMINATION TYPE: XR chest 1V portable DATE OF EXAM: 11/15/2020 COMPARISON: 05/12/2020 HISTORY: Pneumonia. Short of breath. TECHNIQUE: FINDINGS: Heart is enlarged. There is no gross heart failure. There is coarse interstitial density in the mid and lower lung [place]. There is some mild infiltrate and atelectasis in the right lower lobe . There are chest leads. There are no hilar masses. Mediastinum is fairly normal. Bony thorax appears intact. IMPRESSION: There is some right lower lobe pneumonia that appears new compared to old exam. Mild card iomegaly. There is probably some pulmonary interstitial fibrosis.
[2020-11-15 16:59] LABS: ALT 23 U/L (4-49); AST 20 U/L (17-59); African American GFR (CKD) >90 (>60 ml/min/1.73 sqM); Alkaline Phosphatase 146 U/L (38-126); Blood Urea Nitrogen 13 mg/dL (9-20); C Reactive Protein 39.7 mg/L (<10.0); Chloride 99 mmol/L (98-107); Glucose 150 mg/dL (74-99); LDH 486 U/L (313-618); Magnesium 2.3 mg/dL (1.6-2.3); Non-African American GFR(CKD) >90 (>60 ml/min/1.73 sqM); Potassium 4.5 mmol/L (3.5-5.1); Sodium 144 mmol/L (137-145); Total Bilirubin 0.4 mg/dL (0.2-1.3); Total Protein 6.4 g/dL (6.3-8.2)
[2020-11-15 17:03] LABS: Anion Gap 8 mmol/L
[2020-11-15 17:08] LABS: Carbon Dioxide 37 mmol/L (22-30)
[2020-11-15 17:20] LABS: INR 0.9 (<1.2); Partial Thromboplastin Time 23.7 sec (22.0-30.0); Prothrombin Time 9.8 sec (9.0-12.0)
[2020-11-15] MEDS ORDERED: AZITHROMYCIN 500 MG in SODIUM CHLORIDE 0.9% 250 ML IVPB STA (18:06)
[2020-11-15] MEDS ORDERED: IPRATROPIUM-ALBUTEROL 3 ML NEB INHALATION PRN (18:06)
[2020-11-15] MEDS ORDERED: PNEUMONIA PROTOCOL UTILIZED 1 EACH MISC PO PRN (18:06)
[2020-11-15] MEDS: methylPREDNISolone SOD SUCCI 125 MG/2 ML VIAL IV SCH ×2 (18:21→23:40)
[2020-11-15] MEDS: IPRATROPIUM-ALBUTEROL 3 ML NEB INHALATION SCH (19:22)
[2020-11-15] MEDS ORDERED: HYDROcodone/APAP 10-325MG 1 EACH TAB PO PRN (21:14)
[2020-11-16 00:45] LABS: Ferritin 93.4 ng/mL (22.0-322.0)
[2020-11-16] MEDS: methylPREDNISolone SOD SUCCI 125 MG/2 ML VIAL IV SCH ×4 (05:24→23:28)
[2020-11-16] MEDS: IPRATROPIUM-ALBUTEROL 3 ML NEB INHALATION SCH ×4 (08:07→20:55)
--- NOTE | 2020-11-16 09:22 | XR ---
EXAMINATION TYPE: XR chest 2V DATE OF EXAM: 11/16/2020 COMPARISON: 11/15/2020 HISTORY: Shortness of breath TECHNIQUE: Frontal and lateral views of the chest are obtained. FINDINGS: Scattered senescent parenchymal changes noted. Hyperinflation compatible with COPD. Patchy basilar infiltrates persist with slight progression noted at the left lung base. Heart size is stable. Mediastinal structures are stable and grossly unremarkable. No evidence for hilar prominence. Degenerative changes dorsal spine. IMPRESSION: 1. Patchy basilar infiltrates persist with slight progression noted at the left lung base.
--- NOTE | 2020-11-16 09:42 | P.CNPUL ---
History of Present Illness Consult date: 11/16/20 Reason for consult: dyspnea, cough Chief complaint: Shortness of breath along with cough and sputum production History of present illness: Patient is a 60-year-old male with extensive history of smoking and nicotine use patient used to smoke sixpacks a day lately have cut down to half to one pack a day came into the hospital with several day history of increased cough shortness of breath and yellow to brown sputum production denies any chest pain, shortness breath has been progressive, patient has significant history of coronary artery disease seizure disorder and sleep apnea also has a 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, patient does have a history of stent placement, on arrival patient noted to be hypoxic with saturation of 92% drop down to 90% on 2 L oxygen, admitted chest x-ray is positive for right lower lobe pneumonia him a today's chest x-ray also noted to have patchy infiltrate on the left lung base, currently patient is on bronchodilators and IV steroids and IV antibiotics, spu sangita cultures are being collected, Review of Systems All systems: negative Past Medical History Past Medical History: Asthma, Coronary Artery Disease (CAD), Chest Pain / Angina, Heart Failure, COPD, CVA/TIA, GERD/Reflux, Hyperlipidemia, Hypertension, Myocardial Infarction ([place]), Osteoarthritis (OA), Pneumonia, Renal Disease, Seizure Disorder, Sleep Apnea/CPAP/BIPAP Additional Past Medical History / Comment(s): last seizure - 2014, hiatal hernia, chronic back pain, 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, lupus, continuous oxygen use at 3L, no cpap used, kidney failure with hemodilaysis in the past, 3 [place]'s, hypoglycemia Last Myocardial Infarction Date:: 2016 History of Any Multi-Drug Resistant Organisms: None Reported Past Surgical History: Cholecystectomy, Heart Catheterization, Heart Cathete rization With Stent, Tonsillectomy Additional Past Surgical History / Comment(s): STATES 3 cardiac stents, Past Anesthesia/Blood Transfusion Reactions: No Reported Reaction Additional Past Anesthesia/Blood Transfusion Reaction / Comment(s): blood transfusion-no reaction, unknown family hx per spouse Date of Last Stent Placement:: 2015 Past Psychological History: Anxiety, Depression Additional Psychological History / Comment(s): . Smoking Status: Current every day smoker Past Alcohol Use History: None Reported Additional Past Alcohol Use History / Comment(s): smokes 1/2 PPD, started at age 12 -was smoking 6ppd at one time Past Drug Use History: None Reported - Past Family History Father Family Medical History: Myocardial Infarction ([place]) Mother Family Medical History: Asthma, Cancer, COPD Medications and Allergies Home Medications Medication Instructions Recorded Confirmed Type Metoprolol Tartrate [Lopressor] 25 mg PO BID #60 tab 09/18/15 11/15/20 Rx Loratadine [Claritin] 10 mg PO DAILY 05/21/16 11/15/20 History PARoxetine [Paxil] 20 mg PO DAILY 05/21/16 11/15/20 History Phenytoin Sodium Extended 200 mg PO BID 05/21/16 11/15/20 History [Dilantin] Clopidogrel Bisulfate [Clopidogrel] 75 mg PO DAILY 05/22/16 11/15/20 History Magnesium Oxide [Mag-Ox] 400 mg PO DAILY #30 tablet 07/11/16 11/15/20 Rx rOPINIRole HCL [Requip] 1 mg PO BID 08/30/16 11/15/20 History Mycophenolate Mofetil [Cellcept] 1,000 mg PO DAILY 10/03/17 11/15/20 History Theophylline Anhydrous 400 mg PO DAILY 10/03/17 11/15/20 History [Theophylline] Ergocalciferol (Vitamin D2) 50,000 unit PO Q14D 02/04/18 11/15/20 History [Vitamin D2] Montelukast [Singulair] 10 mg PO DAILY@1500 02/04/18 11/15/20 History Nitroglycerin Sl Tabs [Nitrostat] 0.4 mg SUBLINGUAL Q5M PRN 02/04/18 11/15/20 History Potassium Chloride [Klor-Con 20] 20 meq PO Q48H 02/04/18 11/15/20 History Potassium Chloride [Klor-Con 20] 40 meq PO Q48H 02/04/18 11/15/20 History allopurinoL [Zyloprim] 100 mg PO DAILY 02/04/18 11/15/20 History Isosorbide Mononitrate ER [Imdur] 30 mg PO DAILY #30 tab 02/05/18 11/15/20 Rx Furosemide [Lasix] 80 mg PO BID 08/05/19 11/15/20 History hydrOXYzine HCL [Atarax] 25 mg PO Q8H PRN 08/05/19 11/15/20 History mycophenolate mofetiL [Cellcept] 500 mg PO HS 08/05/19 11/15/20 History Aspirin 325 mg PO DAILY 05/12/20 11/15/20 History Famotidine 20 mg PO DAILY 05/12/20 11/15/20 History HYDROcodone/APAP 7.5-325MG [[place] 1 tab PO Q6H PRN 05/12/20 11/15/20 History 7.5-325] Multivitamins, Thera [Multivitamin 1 tab PO DAILY 05/12/20 11/15/20 History (formulary)] modafiniL [Provigil] 200 mg PO DAILY 05/12/20 11/15/20 History Albuterol Sulfate [Proair Hfa] 2 puff INHALATION RT-Q6H PRN 11/15/20 11/15/20 History Atorvastatin [Lipitor] 20 mg PO DAILY 11/15/20 11/15/20 History Fluticasone Propionate [Flovent 2 puff INHALATION RT-BID 11/15/20 11/15/20 Histo ry Hfa 220 mcg] Tiotropium [place] [Spiriva] 1 cap INHALATION RT-DAILY 11/15/20 11/15/20 History metFORMIN HCL [metFORMIN HCL ER] 1,500 mg PO W/SUPPER 11/15/20 11/15/20 History predniSONE [Deltasone] 20 mg PO DAILY 11/15/20 11/15/20 History Allergies Allergy/AdvReac Type Severity Reaction Status Date / Time Penicillins Allergy Severe Swelling Verified 11/15/20 19:31 Iodinated Contrast Media Allergy Swelling Verified 11/15/20 19:31 [Iodinated Contrast- Oral and IV Dye] iodine Allergy Itching, Verified 11/15/20 19:31 Hives phenobarbital AdvReac Drowsiness Verified 11/15/20 19:31 Physical Exam Vitals: Vital Signs Temp Pulse Pulse Resp BP BP Pulse Ox 11/16/20 08:25 85 22 11/16/20 08:15 77 11/16/20 08:07 78 11/16/20 07:38 98.2 F 85 22 172/88 90 L 11/16/20 01:43 98.2 F 76 20 151/81 92 L 11/15/20 20:40 98.0 F 76 20 142/88 90 L 11/15/20 20:15 99.0 F 71 22 115/65 93 L 11/15/20 19:35 76 11/15/20 19:23 72 11/15/20 19:00 61 22 100/51 92 L 11/15/20 18:00 99.0 F 90 22 105/87 91 L 11/15/20 17:42 68 11/15/20 17:29 73 11/15/20 17:00 71 22 146/84 90 L 11/15/20 16:00 74 24 121/80 93 L 11/15/20 14:59 98.3 F 86 18 132/91 92 L Intake and Output 11/15/20 11/16/20 11/16/20 22:59 06:59 14:59 Intake Total 240 200 Balance 240 200 Intake: Oral 240 200 Other: # Voids 1 Weight 103.873 kg - Constitutional General appearance: average body habitus, cooperative, disheveled - EENT Eyes: EOMI, PERRLA ENT: normal oropharynx Ears: bilateral: normal - Neck Carotids: bilateral: upstroke normal Thyroid: negative: normal size - Respiratory Respiratory: bilateral: diminished, rhonchi - Cardiovascular Rhythm: regular Heart sounds: normal: S1, S2 - Gastrointestinal General gastrointestinal: soft - Integumentary Integumentary: normal turgor - Neurologic Neurologic: CNII-XII intact - Musculoskeletal Musculoskeletal: gait normal, generalized weakness, strength equal bilaterally - Psychiatric Psychiatric: A&O x's 3, appropriate affect, intact judgment & insight Results - Laboratory Findings CBC and BMP: 11/15/20 16:01 11/15/20 16:01 PT/INR, D-dimer PT 9.8 sec (9.0-12.0) 11/15/20 16:01 INR 0.9 (<1.2) 11/15/20 16:01 Abnormal lab findings: Abnormal Labs 11/15/20 11/15/20 16:01 16:01 MCV 100.9 H Plt Count 143 L Carbon Dioxide 37 H Creatinine 0.62 L Glucose 150 H Alkaline Phosphatase 146 H C-Reactive Protein 39.7 H - Diagnostic Findings Chest x-ray: report reviewed, image reviewed Assessment and Plan Assessment: Bilateral lower lobe pneumonia Acute hypoxic respiratory failure Baseline COPD History of coronary artery disease Morbid obesity obstructive sleep apnea Plan: Overall plan is to continue broad-spectrum antibiotics breathing treatments IV steroids supplemental oxygen follow up on sputum studies, further plan of care as per clinical response of the patient Time with Patient: Greater than 30
[2020-11-16] MEDS: AZITHROMYCIN 500 MG TAB PO SCH (09:53)
[2020-11-16] MEDS: PANTOPRAZOLE 40 MG/10 ML VIAL IVP SCH (09:53)
[2020-11-16] MEDS ORDERED: hydrOXYzine HCL 25 MG TAB PO PRN (11:22)
[2020-11-16] MEDS ORDERED: NITROGLYCERIN SL TABS 0.4 MG TAB SUBLINGUAL PRN (11:22)
[2020-11-16 12:10] LABS: African American GFR (CKD) >90 (>60 ml/min/1.73 sqM); Anion Gap 4 mmol/L; Blood Urea Nitrogen 14 mg/dL (9-20); Calcium 9.1 mg/dL (8.4-10.2); Carbon Dioxide 38 mmol/L (22-30); Chloride 100 mmol/L (98-107); Glucose 176 mg/dL (74-99); Non-African American GFR(CKD) >90 (>60 ml/min/1.73 sqM); Potassium 4.7 mmol/L (3.5-5.1); Sodium 142 mmol/L (137-145)
[2020-11-16] MEDS: allopurinoL 100 MG TAB PO SCH (12:36)
[2020-11-16] MEDS: FAMOTIDINE 20 MG TAB PO SCH (12:37)
[2020-11-16] MEDS: ATORVASTATIN 20 MG TAB PO SCH (12:37)
[2020-11-16] MEDS: ASPIRIN 325 MG TAB PO SCH (12:37)
[2020-11-16] MEDS: CLOPIDOGREL 75 MG TAB PO SCH (12:37)
[2020-11-16] MEDS: FUROSEMIDE 80 MG TAB PO SCH ×2 (12:38→20:33)
[2020-11-16] MEDS: LORATADINE 10 MG TAB PO SCH (12:39)
[2020-11-16] MEDS: METOPROLOL TARTRATE 25 MG TAB PO SCH ×2 (12:39→20:33)
[2020-11-16] MEDS: MAGNESIUM OXIDE 400 MG TAB PO SCH (12:39)
[2020-11-16] MEDS: ISOSORBIDE MONONITRATE ER 30 MG TAB.ER.24H PO SCH (12:39)
[2020-11-16] MEDS: MULTIVITAMINS, THERA 1 EACH TAB PO SCH (12:42)
[2020-11-16] MEDS: PARoxetine 20 MG TAB PO SCH (12:43)
[2020-11-16] MEDS: PHENYTOIN SODIUM EXTENDED 100 MG CAP PO SCH ×2 (12:43→20:33)
[2020-11-16] MEDS: NICOTINE 21MG/24HR PATCH TRANSDERM SCH (12:43)
[2020-11-16] MEDS: HYDROcodone/APAP 7.5-325MG 1 EACH TAB PO PRN ×2 (12:44→20:32)
[2020-11-16] MEDS: THEOPHYLLINE 24 HOUR 400 MG CAP.ER.24H PO SCH (12:44)
[2020-11-16] MEDS: INSULIN ASPART (NovoLOG) 100 UNIT/ML VIAL SQ SCH ×3 (12:46→20:32)
--- NOTE | 2020-11-16 13:48 | P.HPIM ---
History of Present Illness H&P Date: 11/16/20 Chief Complaint: Worsening shortness of breath This is 60-year-old gentleman followed for Dr. Teran in the office with past medical history of CAD-myocardial infarction, cardiac stents, seizure disorder, CVA with residual left arm weakness SLE, COPD on 3 L home O2, who is often not compliant with his oxygen, nicotine dependence, recently at [facility] last week for pneumonia, presented to the ER with complaints of worsening shortness of breath accompanied by cough. Reports productive cough with dark yellow sputum, denies fever. Denies chest pain, palpitations. Denies syncope. Denies nausea vomiting or diarrhea. Denies abdominal pain. O2 sat on arrival 90% on 2 L nasal cannula. Chest x-ray reporting right lower lobe pneumonia, probably pulmonary interstitial fibrosis. Repeat chest x-ray reporting patchy basilar infiltrates persisting with slight progression of the left lung base. EKG reporting sinus rhythm with ccasional PVCs, incomplete right bundle branch block. Afebrile, T-max 99, normal WBC. Hemoglobin 16.3, platelets 143, MCV 100.9. Coagulation panel unremarkable. Sodium 142, potassium 4.7, carbon dioxide 38 BUN 14, creatinine 0.58 magnesium 2.3. Lactic acid 1.2. T bili within normal limits, elevated alk phos 146, LDH 486, C-reactive protein 39.7 procalcitonin within normal limits 0.03. Bernal virus not detected. Sputum culture collected. IV steroids, antibiotics, nebulized bronchodilators initiated. 76 Review of Systems ROS Statement: Those systems with pertinent positive or pertinent negative responses have been documented in the HPI. ROS Other: All systems not noted in ROS Statement are negative. Past Medical History Past Medical History: Asthma, Coronary Artery Disease (CAD), Chest Pain / Angina, Heart Failure, COPD, CVA/TIA, GERD/Reflux, Hyperlipidemia, Hypertension, Myocardial Infarction (VT), Osteoarthritis (OA), Pneumonia, Renal Disease, Seizure Disorder, Sleep Apnea/CPAP/BIPAP Additional Past Medical History / Comment(s): last seizure - 2014, hiatal hernia, chronic back pain, 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, lupus, continuous oxygen use at 3L, no cpap used, kidney failure with hemodilaysis in the past, 3 VT's, hypoglycemia Last Myocardial Infarction Date:: 2016 History of Any Multi-Drug Resistant Organisms: None Reported Past Surgical History: Cholecystectomy, Heart Catheterization, Heart Catheterization With Stent, Tonsillectomy Additional Past Surgical History / Comment(s): STATES 3 cardiac stents, Past Anesthesia/Blood Transfusion Reactions: No Reported Reaction Additional Past Anesthesia/Blood Transfusion Reaction / Comment(s): blood transfusion-no reaction, unknown family hx per spouse Date of Last Stent Placement:: 2015 Past Psychological History: Anxiety, Depression Additional Psychological History / Comment(s): . Smoking Status: Current every day smoker Past Alcohol Use History: None Reported Additional Past Alcohol Use History / Comment(s): smokes 1/2 PPD, started at age 12 -was smoking 6ppd at one time Past Drug Use History: None Reported - Past Family History Father Family Medical History: Myocardial Infarction (VT) Mother Family Medical History: Asthma, Cancer, COPD Medications and Allergies Home Medications Medication Instructions Recorded Confirmed Type Metoprolol Tartrate [Lopressor] 25 mg PO BID #60 tab 09/18/15 11/15/20 Rx Loratadine [Claritin] 10 mg PO DAILY 05/21/16 11/15/20 History PARoxetine [Paxil] 20 mg PO DAILY 05/21/16 11/15/20 History Phenytoin Sodium Extended 200 mg PO BID 05/21/16 11/15/20 History [Dilantin] Clopidogrel Bisulfate [Clopidogrel] 75 mg PO DAILY 05/22/16 11/15/20 History Magnesium Oxide [Mag-Ox] 400 mg PO DAILY #30 tablet 07/11/16 11/15/20 Rx rOPINIRole HCL [Requip] 1 mg PO BID 08/30/16 11/15/20 History Mycophenolate Mofetil [Cellcept] 1,000 mg PO DAILY 10/03/17 11/15/20 History Theophylline Anhydrous 400 mg PO DAILY 10/03/17 11/15/20 History [Theophylline] Ergocalciferol (Vitamin D2) 50,000 unit PO Q14D 02/04/18 11/15/20 History [Vitamin D2] Montelukast [Singulair] 10 mg PO DAILY@1500 02/04/18 11/15/20 History Nitroglycerin Sl Tabs [Nitrostat] 0.4 mg SUBLINGUAL Q5M PRN 02/04/18 11/15/20 History Potassium Chloride [Klor-Con 20] 20 meq PO Q48H 02/04/18 11/15/20 History Potassium Chloride [Klor-Con 20] 40 meq PO Q48H 02/04/18 11/15/20 History allopurinoL [Zyloprim] 100 mg PO DAILY 02/04/18 11/15/20 History Isosorbide Mononitrate ER [Imdur] 30 mg PO DAILY #30 tab 02/05/18 11/15/20 Rx Furosemide [Lasix] 80 mg PO BID 08/05/19 11/15/20 History hydrOXYzine HCL [Atarax] 25 mg PO Q8H PRN 08/05/19 11/15/20 History mycophenolate mofetiL [Cellcept] 500 mg PO HS 08/05/19 11/15/20 History Aspirin 325 mg PO DAILY 05/12/20 11/15/20 History Famotidine 20 mg PO DAILY 05/12/20 11/15/20 History HYDROcodone/APAP 7.5-325MG [Ramona 1 tab PO Q6H PRN 05/12/20 11/15/20 History 7.5-325] Multivitamins, Thera [Multivitamin 1 tab PO DAILY 05/12/20 11/15/20 History (formulary)] modafiniL [Provigil] 200 mg PO DAILY 05/12/20 11/15/20 History Albuterol Sulfate [Proair Hfa] 2 puff INHALATION RT-Q6H PRN 11/15/20 11/15/20 History Atorvastatin [Lipitor] 20 mg PO DAILY 11/15/20 11/15/20 History Fluticasone Propionate [Flovent 2 puff INHALATION RT-BID 11/15/20 11/15/20 History Hfa 220 mcg] Tiotropium [place] [Spiriva] 1 cap INHALATION RT-DAILY 11/15/20 11/15/20 History metFORMIN HCL [metFORMIN HCL ER] 1,500 mg PO W/SUPPER 11/15/20 11/15/20 History predniSONE [Deltasone] 20 mg PO DAILY 11/15/20 11/15/20 History Allergies Allergy/AdvReac Type Severity Reaction Status Date / Time Penicillins Allergy Severe Swelling Verified 11/15/20 19:31 Iodinated Contrast Media Allergy Swelling Verified 11/15/20 19:31 [Iodinated Contrast- Oral and IV Dye] iodine Allergy Itching, Verified 11/15/20 19:31 Hives phenobarbital AdvReac Drowsiness Verified 11/15/20 19:31 Physical Exam Vitals: Vital Signs Temp Pulse Pulse Resp BP BP Pulse Ox 11/16/20 08:25 85 22 11/16/20 08:15 77 11/16/20 08:07 78 11/16/20 07:38 98.2 F 85 22 172/88 90 L 11/16/20 01:43 98.2 F 76 20 151/81 92 L 11/15/20 20:40 98.0 F 76 20 142/88 90 L 11/15/20 20:15 99.0 F 71 22 115/65 93 L 11/15/20 19:35 76 11/15/20 19:23 72 11/15/20 19:00 61 22 100/51 92 L 11/15/20 18:00 99.0 F 90 22 105/87 91 L 11/15/20 17:42 68 11/15/20 17:29 73 11/15/20 17:00 71 22 146/84 90 L 11/15/20 16:00 74 24 121/80 93 L 11/15/20 14:59 98.3 F 86 18 132/91 92 L Intake and Output 11/15/20 11/16/20 11/16/20 22:59 06:59 14:59 Intake Total 240 200 Balance 240 200 Intake: Oral 240 200 Other: # Voids 1 Weight 103.873 kg General: [Patient awake, alert and oriented times 3, sitting up at side of bed.NAD.] HEENT: [PERRL. EOMI. No pharyngeal erythema or exudate.] Neck: [Supple, No adenopathy.] Cardiac: [Heart regular in rate and rhythm. No S3. No S4. No clicks, rubs. No murmur.] Lungs: Coarse throughout with scattered rhonchi] Abdomen: [Soft , nontender ,No mass. No organomegaly. Bowel sounds presnt and normoactive in all 4 quadrants.] Extremes: [No edema no cyanosis no claudication normal pulses] Musculoskeletal: [No joint erythema, edema or tenderness.] Skin: [Warm and dry, No rash.] Neurologic: [No lateralizing deficits. CN II - XII grossly intact; chronic residual left arm weakness.] Lymphatic: [No adenopathy.] Results CBC & Chem 7: 11/15/20 16:01 11/16/20 11:30 Labs: Abnormal Lab Results - Last 24 Hours (Table) 11/15/20 11/15/20 Range/Units 16:01 16:01 MCV 100.9 H (80.0-100.0) fL Plt Count 143 L (150-450) k/uL Carbon Dioxide 37 H (22-30) mmol/L Creatinine 0.62 L (0.66-1.25) mg/dL Glucose 150 H (74-99) mg/dL Alkaline Phosphatase 146 H (38-126) U/L C-Reactive Protein 39.7 H (<10.0) mg/L Thrombosis Risk Factor Assmnt - Choose All That Apply Each Factor Represents 1 point: Age 41-60 years, Obesity (BMI >25) Thrombosis Risk Factor Assessment Total Risk Factor Score: 2 Thrombosis Risk Factor Assessment Level: Low Risk Assessment and Plan Assessment: (1) Bilateral lower lobe pneumonia 2) Chronic hypoxic, hypercapnic respiratory failure, uses 3 L at home Current Visit: Yes Status: Acute Code(s): J96.10 - CHRONIC RESPIRATORY FAILURE, UNSP W HYPOXIA OR HYPERCAPNIA SNOMED Code(s): 61108229 (3) Nicotine dependence Current Visit: No Status: Acute Code(s): F17.200 - NICOTINE DEPENDENCE, UNSPECIFIED, UNCOMPLICATED SNOMED Code(s): 20665567 (4) history of CVA with residual left arm weakness (5) Anemia of chronic disease Current Visit: No Status: Acute Code(s): D63.8 - ANEMIA IN OTHER CHRONIC DISEASES CLASSIFIED ELSEWHERE SNOMED Code(s): 290906165 (6) COPD (chronic obstructive pulmonary disease), baseline Current Visit: No Status: Acute Code(s): J44.9 - CHRONIC OBSTRUCTIVE PULMONARY DISEASE, UNSPECIFIED SNOMED Code(s): 47874619 (7) HTN (hypertension) Current Visit: No Status: Acute Code(s): I10 - ESSENTIAL (PRIMARY) HYPERTENSION SNOMED Code(s): 87257548 (8) Ischemic heart disease Current Visit: No Status: Acute Code(s): I25.9 - CHRONIC ISCHEMIC HEART DISEASE, UNSPECIFIED SNOMED Code(s): 979463679 (9) CAD, history of VT, cardiac stent (10) obesity, BMI 33.8 (11) obstructive sleep apnea (12) Systolic CHF, chronic (13) elevated MCV, alk phos, denies alcohol intake. Plan: Continue current medication regime ,monitoring and tympanic treatment. Maintain antibiotics, steroids, nebulized bronchodilators. Sputum culture finalizing. Smoking cessation reinforced. Follow-up with pulmonary closely. The impression and plan of care has been dictated as directed. : I performed a history and examination of this patient, discussed the same with the dictator. I agree with the dictator's note ,documented as a scribe. Any additional findings or plans will be noted.
[2020-11-16] MEDS: MONTELUKAST 10 MG TAB PO SCH (15:25)
[2020-11-16 16:50] LABS: Glucose,Whole Blood 174 mg/dL (75-99)
[2020-11-16] MEDS: metFORMIN 500 MG TAB PO SCH (17:09)
[2020-11-16 20:17] LABS: Glucose,Whole Blood 146 mg/dL (75-99)
[2020-11-16] MEDS: FLUTICASONE 220 MCG INHALER INHALATION SCH (21:06)
[2020-11-17 00:22] LABS: Glucose,Whole Blood 179 mg/dL (75-99)
[2020-11-17] MEDS: methylPREDNISolone SOD SUCCI 125 MG/2 ML VIAL IV SCH ×2 (05:31→12:41)
[2020-11-17] MEDS: HYDROcodone/APAP 7.5-325MG 1 EACH TAB PO PRN ×2 (05:37→12:51)
[2020-11-17 07:05] LABS: Glucose,Whole Blood 151 mg/dL (75-99)
[2020-11-17 07:27] VITALS: RESP 16
[2020-11-17] MEDS: metFORMIN 500 MG TAB PO SCH (07:41)
[2020-11-17] MEDS: INSULIN ASPART (NovoLOG) 100 UNIT/ML VIAL SQ SCH ×2 (07:41→12:26)
[2020-11-17] MEDS ORDERED: NON FORMULARY DRUG (Tiotropium Bromide [Spiriva] 18 MCG Cap.W.Dev) INHALATION SCH (08:00)
[2020-11-17] MEDS: IPRATROPIUM-ALBUTEROL 3 ML NEB INHALATION SCH ×3 (08:36→15:12)
[2020-11-17] MEDS: FLUTICASONE 220 MCG INHALER INHALATION SCH (08:36)
[2020-11-17] MEDS: METOPROLOL TARTRATE 25 MG TAB PO SCH (09:15)
[2020-11-17] MEDS: FAMOTIDINE 20 MG TAB PO SCH (09:15)
[2020-11-17] MEDS: CLOPIDOGREL 75 MG TAB PO SCH (09:15)
[2020-11-17] MEDS: MULTIVITAMINS, THERA 1 EACH TAB PO SCH (09:15)
[2020-11-17] MEDS: allopurinoL 100 MG TAB PO SCH (09:15)
[2020-11-17] MEDS: LORATADINE 10 MG TAB PO SCH (09:15)
[2020-11-17] MEDS: PARoxetine 20 MG TAB PO SCH (09:15)
[2020-11-17] MEDS: ASPIRIN 325 MG TAB PO SCH (09:16)
[2020-11-17] MEDS: NICOTINE 21MG/24HR PATCH TRANSDERM SCH (09:16)
[2020-11-17] MEDS: MAGNESIUM OXIDE 400 MG TAB PO SCH (09:16)
[2020-11-17] MEDS: FUROSEMIDE 80 MG TAB PO SCH (09:16)
[2020-11-17] MEDS: ISOSORBIDE MONONITRATE ER 30 MG TAB.ER.24H PO SCH (09:16)
[2020-11-17] MEDS: ATORVASTATIN 20 MG TAB PO SCH (09:16)
[2020-11-17] MEDS: PHENYTOIN SODIUM EXTENDED 100 MG CAP PO SCH (09:17)
[2020-11-17] MEDS: PANTOPRAZOLE 40 MG/10 ML VIAL IVP SCH (09:18)
[2020-11-17] MEDS: AZITHROMYCIN 500 MG TAB PO SCH (09:21)
[2020-11-17] MEDS: THEOPHYLLINE 24 HOUR 400 MG CAP.ER.24H PO SCH (09:21)
[2020-11-17 09:36] LABS: Basophils # (A) 0.03 X 10*3/uL (0.00-0.10); Basophils % (A) 0.3 %; Eosinophils # (A) 0.02 X 10*3/uL (0.04-0.35); Eosinophils % (A) 0.2 %; HCT 46.7 % (39.6-50.0); HGB 14.6 g/dL (13.0-17.0); Lymphocytes % (A) 23.3 %; MCH 32.4 pg (27.0-32.0); MCHC 31.3 g/dL (32.0-37.0); MCV 103.8 fL (80.0-97.0); Mean Platelet Volume 11.1 fL (9.5-12.2); Monocytes # (A) 0.46 X 10*3/uL (0.20-1.00); Monocytes % (A) 5.1 %; Neutrophils # (A) 6.36 X 10*3/uL (1.80-7.70); Neutrophils % (A) 70.5 %; Platelet Count 145 X 10*3/uL (140-440); RDW 13.8 % (11.5-14.5); WBC 9.02 X 10*3/uL (4.50-10.00)
[2020-11-17 10:57] LABS: African American GFR (CKD) 112.5 (60.0-200.0); Anion Gap 8.5 mmol/L (4.00-12.00); Calcium 8.5 mg/dL (8.7-10.3); Carbon Dioxide 36.5 mmol/L (21.6-31.8); Non-African American GFR(CKD) 97.1 (60.0-200.0); Potassium 4.4 mmol/L (3.5-5.5)
[2020-11-17 11:36] LABS: Glucose,Whole Blood 130 mg/dL (75-99)
--- NOTE | 2020-11-17 11:57 | P.PN ---
Subjective Progress Note Date: 11/17/20 This is 60-year-old gentleman followed for Dr. Teran in the office with past medical history of CAD-myocardial infarction, cardiac stents, seizure disorder, CVA with residual left arm weakness SLE, COPD on 3 L home O2, who is often not compliant with his oxygen, nicotine dependence, recently at [facility] last week for pneumonia, presented to the ER with complaints of worsening shortness of breath accompanied by cough. Reports productive cough with dark yellow sputum, denies fever. Denies chest pain, palpitations. Denies syncope. Denies nausea vomiting or diarrhea. Denies abdominal pain. O2 sat on arrival 90% on 2 L nasal cannula. Chest x-ray reporting right lower lobe pneumonia, probably pulmonary interstitial fibrosis. Repeat chest x-ray reporting patchy basilar infiltrates persisting with slight progression of the left lung base. EKG reporting sinus rhythm with ccasional PVCs, incomplete right bundle branch block. Afebrile, T-max 99, normal WBC. Hemoglobin 16.3, platelets 143, MCV 100.9. Coagulation panel unremarkable. Sodium 142, potassium 4.7, carbon dioxide 38 BUN 14, creatinine 0.58 magnesium 2.3. Lactic acid 1.2. T bili within normal limits, elevated alk phos 146, LDH 486, C-reactive protein 39.7 procalcitonin within normal limits 0.03. Bernal virus not detected. Sputum culture collected. IV steroids, antibiotics, nebulized bronchodilators initiated. 76 11/17/2020 no overnight events. Maintained on nebulized bronchodilators, IV antibiotics, IV steroids. Productive cough continues, sputum culture collected, results pending. Currently Afebrile, T-max 99 ,normal WBC, preliminary blood cultures report no growth at 24 hours. Continues on 2 L maintaining O2 sats in the 90s(baseline). Denies chest pain, palpitations. Objective - Vital Signs Vital signs: Vital Signs Temp 98.1 F 11/17/20 07:26 Pulse 72 11/17/20 08:52 Resp 16 11/17/20 07:26 BP 127/76 11/17/20 07:26 Pulse Ox 92 L 11/17/20 07:26 Intake & Output 11/16/20 11/17/20 11/17/20 18:59 06:59 18:59 Intake Total 250 236 Balance 250 236 Intake: Intake, IV Titration 50 Amount cefTRIAXone 2 gm In 50 Sodium Chloride 0.9% 50 ml @ 100 mls/hr IVPB Q24HR [facility] Rx#:[id number] Oral 200 236 Other: # Voids 2 - Exam General: [Patient awake, alert and oriented times 3, sitting up at side of bed.NAD.] HEENT: [PERRL. EOMI. oral mucosa moist] Neck: [Supple, unable to assess JVD. Cardiac: [Heart regular in rate and rhythm. No S3. No S4. No clicks, rubs. No murmur.] Lungs: Coarse throughout with scattered rhonchi, occasional expiratory wheezing] Abdomen: [Soft , nontender ,No mass. No organomegaly. Positive bowel sounds. Extremities: [No edema no cyanosis no claudication normal pulses] Skin: [Warm and dry, No rash.] Neurologic: CN II - XII grossly intact; chronic residual left arm weakness.] - Labs CBC & Chem 7: 11/17/20 06:20 11/17/20 06:20 Labs: Abnormal Lab Results - Last 24 Hours (Table) 11/16/20 11/16/20 11/16/20 Range/Units 11:30 16:47 20:16 MCV (80.0-97.0) fL MCH (27.0-32.0) pg MCHC (32.0-37.0) g/dL Immature Gran # (0.00-0.04) X 10*3/uL Eosinophils # (0.04-0.35) X 10*3/uL Carbon Dioxide 38 H (22-30) mmol/L Creatinine 0.58 L (0.66-1.25) mg/dL Glucose 176 H (74-99) mg/dL POC Glucose (mg/dL) 174 H 146 H (75-99) mg/dL Calcium (8.7-10.3) mg/dL 11/17/20 11/17/20 11/17/20 Range/Units 00:20 06:20 06:20 MCV 103.8 H (80.0-97.0) fL MCH 32.4 H (27.0-32.0) pg MCHC 31.3 L (32.0-37.0) g/dL Immature Gran # 0.05 H (0.00-0.04) X 10*3/uL Eosinophils # 0.02 L (0.04-0.35) X 10*3/uL Carbon Dioxide 36.5 H (22-30) mmol/L Creatinine (0.66-1.25) mg/dL Glucose 154 H (74-99) mg/dL POC Glucose (mg/dL) 179 H (75-99) mg/dL Calcium 8.5 L (8.7-10.3) mg/dL 11/17/20 Range/Units 07:03 MCV (80.0-97.0) fL MCH (27.0-32.0) pg MCHC (32.0-37.0) g/dL Immature Gran # (0.00-0.04) X 10*3/uL Eosinophils # (0.04-0.35) X 10*3/uL Carbon Dioxide (22-30) mmol/L Creatinine (0.66-1.25) mg/dL Glucose (74-99) mg/dL POC Glucose (mg/dL) 151 H (75-99) mg/dL Calcium (8.7-10.3) mg/dL Microbiology - Last 24 Hours (Table) 11/16/20 21:02 Gram Stain - Preliminary Sputum Sputum Culture - Preliminary 11/15/20 16:01 Blood Culture - Preliminary Blood No Growth after 24 hours 11/15/20 16:01 Blood Culture - Preliminary Blood No Growth after 24 hours Assessment and Plan Assessment: (1) Bilateral lower lobe pneumonia 2) Chronic hypoxic, hypercapnic respiratory failure, uses 3 L at home Current Visit: Yes Status: Acute Code(s): J96.10 - CHRONIC RESPIRATORY FAIL URE, UNSP W HYPOXIA OR HYPERCAPNIA SNOMED Code(s): 69261935 (3) Nicotine dependence Current Visit: No Status: Acute Code(s): F17.200 - NICOTINE DEPENDENCE, UNSPECIFIED, UNCOMPLICATED SNOMED Code(s): 54259060 (4) history of CVA with residual left arm weakness (5) Anemia of chronic disease Current Visit: No Status: Acute Code(s): D63.8 - ANEMIA IN OTHER CHRONIC DISEASES CLASSIFIED ELSEWHERE SNOMED Code(s): 120456684 (6) COPD (chronic obstructive pulmonary disease), baseline Current Visit: No Status: Acute Code(s): J44.9 - CHRONIC OBSTRUCTIVE PULMONARY DISEASE, UNSPECIFIED SNOMED Code(s): 91875388 (7) HTN (hypertension) Current Visit: No Status: Acute Code(s): I10 - ESSENTIAL (PRIMARY) HYPERTENSION SNOMED Code(s): 45501181 (8) Ischemic heart disease Current Visit: No Status: Acute Code(s): I25.9 - CHRONIC ISCHEMIC HEART DISEASE, UNSPECIFIED SNOMED Code(s): 632172651 (9) CAD, history of AL, cardiac stent (10) obesity, BMI 33.8 (11) obstructive sleep apnea (12) Systolic CHF, chronic (13) elevated MCV, alk phos, denies alcohol intake. Plan: Continue current medication regime ,monitoring and tympanic treatment. Continue on antibiotics, steroids, nebulized bronchodilators. Final sputum culture results pending. Increase ambulation as tolerated, up in chair for all meals. Smoking cessation reinforced. The impression and plan of care has been dictated as directed. : I performed a history and examination of this patient, discussed the same with the dictator. I agree with the dictator's note ,documented as a scribe. Any additional findings or plans will be noted.
--- NOTE | 2020-11-17 13:54 | P.DS ---
Providers Date of admission: 11/15/20 18:06 Expected date of discharge: 11/10/20 Attending physician: Damir Teran Consults: 11/15/20 18:06 Consult Physician Routine Consulting Provider: Moshe Sherwood Consult Reason/Comments: pneumonia, copd Do you want consulting provider notified?: Yes Primary care physician: Damir Teran [facility] Course: Final Diagnoses: (1) Bilateral lower lobe pneumonia 2) Chronic hypoxic, hypercapnic respiratory failure, uses 3 L at home Current Visit: Yes Status: Acute Code(s): J96.10 - CHRONIC RESPIRATORY FAILURE, UNSP W HYPOXIA OR HYPERCAPNIA SNOMED Code(s): 08317030 (3) Nicotine dependence Current Visit: No Status: Acute Code(s): F17.200 - NICOTINE DEPENDENCE, UNSPECIFIED, UNCOMPLICATED SNOMED Code(s): 66244965 (4) history of CVA with residual left arm weakness (5) Anemia of chronic disease Current Visit: No Status: Acute Code(s): D63.8 - ANEMIA IN OTHER CHRONIC DISEASES CLASSIFIED ELSEWHERE SNOMED Code(s): 985892346 (6) COPD (chronic obstructive pulmonary disease), baseline Current Visit: No Status: Acute Code(s): J44.9 - CHRONIC OBSTRUCTIVE PULMONARY DISEASE, UNSPECIFIED SNOMED Code(s): 13316730 (7) HTN (hypertension) Current Visit: No Status: Acute Code(s): I10 - ESSENTIAL (PRIMARY) HYPERTENSION SNOMED Code(s): 98217153 (8) Ischemic heart disease Current Visit: No Status: Acute Code(s): I25.9 - CHRONIC ISCHEMIC HEART DISEASE, UNSPECIFIED SNOMED Code(s): 940197844 (9) CAD, history of [place], cardiac stent (10) obesity, BMI 33.8 (11) obstructive sleep apnea (12) Systolic CHF, chronic (13) elevated MCV, alk phos, denies alcohol intake. Hospital course:This is 60-year-old gentleman followed for Dr. Teran in the office with past medical history of CAD-myocardial infarction, cardiac stents, seizure disorder, CVA with residual left arm weakness SLE, COPD on 3 L home O2, who is often not compliant with his oxygen, nicotine dependence, recently at [facility] last week for pneumonia, presented to the ER with complaints of worsening shortness of breath accompanied by cough. Reports productive cough with dark yellow sputum, denies fever. Denies chest pain, palpitations. Denies syncope. Denies nausea vomiting or diarrhea. Denies abdominal pain. O2 sat on arrival 90% on 2 L nasal cannula. Chest x-ray reporting right lower lobe pneumonia, probably pulmonary interstitial fibrosis. Repeat chest x-ray reporting patchy basilar infiltrates persisting with slight progression of the left lung base. EKG reporting sinus rhythm with ccasional PVCs, incomplete righ t bundle branch block. Afebrile, T-max 99, normal WBC. Hemoglobin 16.3, platelets 143, MCV 100.9. Coagulation panel unremarkable. Sodium 142, potassium 4.7, carbon dioxide 38 BUN 14, creatinine 0.58 magnesium 2.3. Lactic acid 1.2. T bili within normal limits, elevated alk phos 146, LDH 486, C- reactive protein 39.7 procalcitonin within normal limits 0.03. Bernal virus not detected. Sputum culture collected. IV steroids, antibiotics, nebulized bronchodilators initiated. 76 11/17/2020 no overnight events. Maintained on nebulized bronchodilators, IV antibiotics, IV steroids. Productive cough continues, sputum culture collected, results pending. Currently Afebrile, T-max 99 ,normal WBC, preliminary blood cultures report no growth at 24 hours. Continues on 2 L maintaining O2 sats in the 90s(baseline). Denies chest pain, palpitations. Significant clinical improvement. Patient will be discharged home today in stable condition with guarded prognosis pending final DC recommendations and clearance from pulmonary. Final sputum culture results to be faxed to PCP, Dr. Teran. The impression and plan of care has been dictated as directed. : I performed a history and examination of this patient, discussed the same with the dictator. I agree with the dictator's note ,documented as a scribe. Any additional findings or plans will be noted. Patient Condition at Discharge: Stable Plan - Discharge Summary Discharge Rx Participant: No New Discharge Prescriptions: New Cefuroxime Axetil [Ceftin] 500 mg PO BID 5 Days #10 tab Azithromycin [Zithromax] 500 mg PO DAILY 5 Days #5 tab predniSONE 10 mg PO DIRECTED #30 tab Continue Metoprolol Tartrate [Lopressor] 25 mg PO BID #60 tab PARoxetine [Paxil] 20 mg PO DAILY Loratadine [Claritin] 10 mg PO DAILY Phenytoin Sodium Extended [Dilantin] 200 mg PO BID Clopidogrel Bisulfate [Clopidogrel] 75 mg PO DAILY Magnesium Oxide [Mag-Ox] 400 mg PO DAILY #30 tablet rOPINIRole HCL [Requip] 1 mg PO BID Theophylline Anhydrous [Theophylline] 400 mg PO DAILY Mycophenolate Mofetil [Cellcept] 1,000 mg PO DAILY allopurinoL [Zyloprim] 100 mg PO DAILY Ergocalciferol (Vitamin D2) [Vitamin D2] 50,000 unit PO Q14D Montelukast [Singulair] 10 mg PO DAILY@1500 Nitroglycerin Sl Tabs [Nitrostat] 0.4 mg SUBLINGUAL Q5M PRN PRN Reason: Chest Pain Potassium Chloride [Klor-Con 20] 20 meq PO Q48H Potassium Chloride [Klor-Con 20] 40 meq PO Q48H Isosorbide Mononitrate ER [Imdur] 30 mg PO DAILY #30 tab Furosemide [Lasix] 80 mg PO BID hydrOXYzine HCL [Atarax] 25 mg PO Q8H PRN PRN Reason: Anxiety mycophenolate mofetiL [Cellcept] 500 mg PO HS HYDROcodone/APAP 7.5-325MG [[place] 7.5-325] 1 tab PO Q6H PRN PRN Reason: Pain Famotidine 20 mg PO DAILY modafiniL [Provigil] 200 mg PO DAILY Multivitamins, Thera [Multivitamin (formulary)] 1 tab PO DAILY Aspirin 325 mg PO DAILY predniSONE [Deltasone] 20 mg PO DAILY metFORMIN HCL [metFORMIN HCL ER] 1,500 mg PO W/SUPPER Tiotropium [place] [Spiriva] 1 cap INHALATION RT-DAILY Fluticasone Propionate [Flovent Hfa 220 mcg] 2 puff INHALATION RT-BID Atorvastatin [Lipitor] 20 mg PO DAILY Albuterol Sulfate [Proair Hfa] 2 puff INHALATION RT-Q6H PRN PRN Reason: Shortness Of Breath Discharge Medication List Metoprolol Tartrate [Lopressor] 25 mg PO BID #60 tab 09/18/15 [Rx] Loratadine [Claritin] 10 mg PO DAILY 05/21/16 [History] PARoxetine [Paxil] 20 mg PO DAILY 05/21/16 [History] Phenytoin Sodium Extended [Dilantin] 200 mg PO BID 05/21/16 [History] Clopidogrel Bisulfate [Clopidogrel] 75 mg PO DAILY 05/22/16 [History] Magnesium Oxide [Mag-Ox] 400 mg PO DAILY #30 tablet 07/11/16 [Rx] rOPINIRole HCL [Requip] 1 mg PO BID 08/30/16 [History] Mycophenolate Mofetil [Cellcept] 1,000 mg PO DAILY 10/03/17 [History] Theophylline Anhydrous [Theophylline] 400 mg PO DAILY 10/03/17 [History] Ergocalciferol (Vitamin D2) [Vitamin D2] 50,000 unit PO Q14D 02/04/18 [History] Montelukast [Singulair] 10 mg PO DAILY@1500 02/04/18 [History] Nitroglycerin Sl Tabs [Nitrostat] 0.4 mg SUBLINGUAL Q5M PRN 02/04/18 [History] Potassium Chloride [Klor-Con 20] 20 meq PO Q48H 02/04/18 [History] Potassium Chloride [Klor-Con 20] 40 meq PO Q48H 02/04/18 [History] allopurinoL [Zyloprim] 100 mg PO DAILY 02/04/18 [History] Isosorbide Mononitrate ER [Imdur] 30 mg PO DAILY #30 tab 02/05/18 [Rx] Furosemide [Lasix] 80 mg PO BID 08/05/19 [History] hydrOXYzine HCL [Atarax] 25 mg PO Q8H PRN 08/05/19 [History] mycophenolate mofetiL [Cellcept] 500 mg PO HS 08/05/19 [History] Aspirin 325 mg PO DAILY 05/12/20 [History] Famotidine 20 mg PO DAILY 05/12/20 [History] HYDROcodone/APAP 7.5-325MG [[place] 7.5-325] 1 tab PO Q6H PRN 05/12/20 [History] Multivitamins, Thera [Multivitamin (formulary)] 1 tab PO DAILY 05/12/20 [History] modafiniL [Provigil] 200 mg PO DAILY 05/12/20 [History] Albuterol Sulfate [Proair Hfa] 2 puff INHALATION RT-Q6H PRN 11/15/20 [History] Atorvastatin [Lipitor] 20 mg PO DAILY 11/15/20 [History] Fluticasone Propionate [Flovent Hfa 220 mcg] 2 puff INHALATION RT-BID 11/15/20 [History] Tiotropium [place] [Spiriva] 1 cap INHALATION RT-DAILY 11/15/20 [History] metFORMIN HCL [metFORMIN HCL ER] 1,500 mg PO W/SUPPER 11/15/20 [History] predniSONE [Deltasone] 20 mg PO DAILY 11/15/20 [History] Azithromycin [Zithromax] 500 mg PO DAILY 5 Days #5 tab 11/17/20 [Rx] Cefuroxime Axetil [Ceftin] 500 mg PO BID 5 Days #10 tab 11/17/20 [Rx] predniSONE 10 mg PO DIRECTED #30 tab 11/17/20 [Rx] Follow up Appointment(s)/Referral(s): [facility], [NON-STAFF] - Damir Teran MD [Primary Care Provider] - 3 Days Conner Durán MD [STAFF PHYSICIAN] - 2 Weeks Activity/Diet/Wound Care/Special Instructions: Fax final sputum culture results to PCP, Dr. Teran
[2020-11-17 14:01] VITALS: BP 106/62; TEMP 98.5
[2020-11-17 15:24] VITALS: PULSE 74
[2020-11-17] MEDS: MONTELUKAST 10 MG TAB PO SCH (16:10)
--- NOTE | 2020-11-17 16:42 | P.PN ---
Subjective Progress Note Date: 11/17/20 Principal diagnosis: Bilateral lower lobe pneumonia Acute hypoxic respiratory failure Baseline COPD History of coronary artery disease Morbid obesity obstructive sleep apnea 11/17/2020, patient seen eval reexamined respiratory status remains stable cough congestion shortness of breath continued to improve, primary services seeking to discharge the patient on oral antibiotics and steroids, patient feels comfortable in going home on finishing up therapy at home Patient is a 60-year-old male with extensive history of smoking and nicotine use patient used to smoke sixpacks a day lately have cut down to half to one pack a day came into the hospital with several day history of increased cough shortness of breath and yellow to brown sputum production denies any chest pain, shortness breath has been progressive, patient has significant history of coronary artery disease seizure disorder and sleep apnea also has a 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, patient does have a history of stent placement, on arrival patient noted to be hypoxic with saturation of 92% drop down to 90% on 2 L oxygen, admitted chest x-ray is positive for right lower lobe pneumonia him a today's chest x-ray also noted to have patchy infiltrate on the left lung base, currently patient is on bronchodilators and IV steroids and IV antibiotics, sputum cultures are being collected, Objective - Vital Signs Vital signs: Vital Signs Temp 98.5 F 11/17/20 14:00 Pulse 74 11/17/20 15:23 Resp 16 11/17/20 14:00 BP 106/62 11/17/20 14:00 Pulse Ox 94 L 11/17/20 14:00 Intake & Output 11/16/20 11/17/20 11/17/20 18:59 06:59 18:59 Intake Total 250 472 Balance 250 472 Intake: Intake, IV Titration 50 Amount cefTRIAXone 2 gm In 50 Sodium Chloride 0.9% 50 ml @ 100 mls/hr IVPB Q24HR [facility] Rx#:[id number] Oral 200 472 Other: # Voids 2 - Exam - Constitutional General appearance: average body habitus, cooperative, disheveled - EENT Eyes: EOMI, PERRLA ENT: normal oropharynx Ears: bilateral: normal - Neck Carotids: bilateral: upstroke normal Thyroid: negative: normal size - Respiratory Respiratory: bilateral: Significantly improved compared to yesterday exam - Cardiovascular Rhythm: regular Heart sounds: normal: S1, S2 - Gastrointestinal General gastrointestinal: soft - Integumentary Integumentary: normal turgor - Neurologic Neurologic: CNII-XII intact - Musculoskeletal Musculoskeletal: gait normal, generalized weakness, strength equal bilaterally - Psychiatric Psychiatric: A&O x's 3, appropriate affect, intact judgment & insight - Labs CBC & Chem 7: 11/17/20 06:20 11/17/20 06:20 Labs: Abnormal Lab Results - Last 24 Hours (Table) 11/16/20 11/16/20 11/17/20 Range/Units 16:47 20:16 00:20 MCV (80.0-97.0) fL MCH (27.0-32.0) pg MCHC (32.0-37.0) g/dL Immature Gran # (0.00-0.04) X 10*3/uL Eosinophils # (0.04-0.35) X 10*3/uL Carbon Dioxide (21.6-31.8) mmol/L Glucose (70-110) mg/dL POC Glucose (mg/dL) 174 H 146 H 179 H (75-99) mg/dL Calcium (8.7-10.3) mg/dL 11/17/20 11/17/20 11/17/20 Range/Units 06:20 06:20 07:03 MCV 103.8 H (80.0-97.0) fL MCH 32.4 H (27.0-32.0) pg MCHC 31.3 L (32.0-37.0) g/dL Immature Gran # 0.05 H (0.00-0.04) X 10*3/uL Eosinophils # 0.02 L (0.04-0.35) X 10*3/uL Carbon Dioxide 36.5 H (21.6-31.8) mmol/L Glucose 154 H (70-110) mg/dL POC Glucose (mg/dL) 151 H (75-99) mg/dL Calcium 8.5 L (8.7-10.3) mg/dL 11/17/20 Range/Units 11:35 MCV (80.0-97.0) fL MCH (27.0-32.0) pg MCHC (32.0-37.0) g/dL Immature Gran # (0.00-0.04) X 10*3/uL Eosinophils # (0.04-0.35) X 10*3/uL Carbon Dioxide (21.6-31.8) mmol/L Glucose (70-110) mg/dL POC Glucose (mg/dL) 130 H (75-99) mg/dL Calcium (8.7-10.3) mg/dL Microbiology - Last 24 Hours (Table) 11/16/20 21:02 Gram Stain - Preliminary Sputum Sputum Culture - Preliminary 11/15/20 16:01 Blood Culture - Preliminary Blood No Growth after 24 hours 11/15/20 16:01 Blood Culture - Preliminary Blood No Growth after 24 hours Assessment and Plan Assessment: Bilateral lower lobe pneumonia Acute hypoxic respiratory failure Baseline COPD History of coronary artery disease Morbid obesity obstructive sleep apnea Plan: Agree with discharge planning on by mouth steroids and antibiotics and continuation of bronchodilator therapy patient consult educated about smoking cessation 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
[2020-11-18] MEDS ORDERED: PANTOPRAZOLE 40 MG TABLET PO SCH (07:30)
[2020-11-26] MEDS ORDERED: ERGOCALCIFEROL 1,250 MCG (50,000 IU) CAPSULE PO SCH (09:00)
== END 2020-11-17 16:47 | disposition home health service (06) | DRG 193 ==
LOC: EC 14:55 → 4SSUR 18:06
PROVIDERS: ADMIT Family Medicine; ATTEND Family Medicine
DX: J18.9 Pneumonia, unspecified organism (principal); J96.21 Acute and chronic respiratory failure with hypoxia; J96.22 Acute and chronic respiratory failure with hypercapnia; J44.0 Chronic obstructive pulmonary disease with (acute) lower respiratory infection; I50.22 Chronic systolic (congestive) heart failure; D63.8 Anemia in other chronic diseases classified elsewhere; I11.0 Hypertensive heart disease with heart failure; M32.9 Systemic lupus erythematosus, unspecified; J84.10 Pulmonary fibrosis, unspecified; G40.909 Epilepsy, unspecified, not intractable, without status epilepticus; I69.334 Monoplegia of upper limb following cerebral infarction affecting left non-dominant side; Z20.822 Contact with and (suspected) exposure to COVID-19; E78.5 Hyperlipidemia, unspecified; I25.10 Atherosclerotic heart disease of native coronary artery without angina pectoris; K21.9 Gastro-esophageal reflux disease without esophagitis; M19.90 Unspecified osteoarthritis, unspecified site; G89.29 Other chronic pain; K44.9 Diaphragmatic hernia without obstruction or gangrene; F32.9 Major depressive disorder, single episode, unspecified; F41.9 Anxiety disorder, unspecified; F17.210 Nicotine dependence, cigarettes, uncomplicated; I45.10 Unspecified right bundle-branch block; E66.01 Morbid (severe) obesity due to excess calories; G47.33 Obstructive sleep apnea (adult) (pediatric); Z68.33 Body mass index [BMI] 33.0-33.9, adult; Z71.6 Tobacco abuse counseling; Z87.01 Personal history of pneumonia (recurrent); Z79.51 Long term (current) use of inhaled steroids; I25.2 Old myocardial infarction; Z79.899 Other long term (current) drug therapy; Z79.02 Long term (current) use of antithrombotics/antiplatelets; Z79.82 Long term (current) use of aspirin; Z79.84 Long term (current) use of oral hypoglycemic drugs; Z79.52 Long term (current) use of systemic steroids; Z99.81 Dependence on supplemental oxygen; Z95.5 Presence of coronary angioplasty implant and graft; Z90.49 Acquired absence of other specified parts of digestive tract; Z98.890 Other specified postprocedural states; Z88.0 Allergy status to penicillin; Z88.8 Allergy status to other drugs, medicaments and biological substances; Z91.041 Radiographic dye allergy status; Z82.49 Family history of ischemic heart disease and other diseases of the circulatory system; Z82.5 Family history of asthma and other chronic lower respiratory diseases; Z80.9 Family history of malignant neoplasm, unspecified
CPT/HCPCS: 36415; 71045; 71046; 80048; 80053; 82728; 83605; 83615; 83735; 84145; 85025; 85610; 85730; 86140; 87040; 87070; 87205; 87635; 93005; 94640; 94760; 96365; 96367; 96375; 99285

== ENCOUNTER 2020-12-13 14:41 | Inpatient (IN) | payer OTHER ==
[2020-12-13] MEDS ORDERED: methylPREDNISolone SOD SUCCI 125 MG/2 ML VIAL IV STA ×2 (15:08→15:32)
[2020-12-13] MEDS ORDERED: IPRATROPIUM 0.5 MG/2.5 ML NEBU INHALATION STA (15:08)
[2020-12-13] MEDS ORDERED: ALBUTEROL NEBULIZED 2.5 MG/3 ML INHALATION STA (15:08)
--- NOTE | 2020-12-13 15:11 | ED ---
General Adult HPI - General Chief complaint: Shortness of Breath Stated complaint: DIF Time Seen by Provider: 12/13/20 15:03 Source: patient, RN notes reviewed, old records reviewed Mode of arrival: wheelchair Limitations: no limitations - History of Present Illness Initial comments: 60-year-old male history of COPD, CAD, CHF presenting for evaluation of cough and dyspnea. Patient has had on increased cough which is productive predominately of herrmann sputum. He states he completed a round of oral steroids and oral antibiotics about 2 days ago. He was admitted with COPD exacerbation approximately one month ago. He denies fever. Denies central chest pain. He does report some lower extremity swelling which is bilateral. - Related Data Home Medications Medication Instructions Recorded Confirmed Loratadine [Claritin] 10 mg PO DAILY 05/21/16 11/15/20 PARoxetine [Paxil] 20 mg PO DAILY 05/21/16 11/15/20 Phenytoin Sodium Extended 200 mg PO BID 05/21/16 11/15/20 [Dilantin] Clopidogrel Bisulfate [Clopidogrel] 75 mg PO DAILY 05/22/16 11/15/20 rOPINIRole HCL [Requip] 1 mg PO BID 08/30/16 11/15/20 Mycophenolate Mofetil [Cellcept] 1,000 mg PO DAILY 10/03/17 11/15/20 Theophylline Anhydrous 400 mg PO DAILY 10/03/17 11/15/20 [Theophylline] Ergocalciferol (Vitamin D2) 50,000 unit PO Q14D 02/04/18 11/15/20 [Vitamin D2] Montelukast [Singulair] 10 mg PO DAILY@1500 02/04/18 11/15/20 Nitroglycerin Sl Tabs [Nitrostat] 0.4 mg SUBLINGUAL Q5M PRN 02/04/18 11/15/20 Potassium Chloride [Klor-Con 20] 20 meq PO Q48H 02/04/18 11/15/20 Potassium Chloride [Klor-Con 20] 40 meq PO Q48H 02/04/18 11/15/20 allopurinoL [Zyloprim] 100 mg PO DAILY 02/04/18 11/15/20 Furosemide [Lasix] 80 mg PO BID 08/05/19 11/15/20 hydrOXYzine HCL [Atarax] 25 mg PO Q8H PRN 08/05/19 11/15/20 mycophenolate mofetiL [Cellcept] 500 mg PO HS 08/05/19 11/15/20 Aspirin 325 mg PO DAILY 05/12/20 11/15/20 Famotidine 20 mg PO DAILY 05/12/20 11/15/20 HYDROcodone/APAP 7.5-325MG [[place] 1 tab PO Q6H PRN 05/12/20 11/15/20 7.5-325] Multivitamins, Thera [Multivitamin 1 tab PO DAILY 05/12/20 11/15/20 (formulary)] modafiniL [Provigil] 200 mg PO DAILY 05/12/20 11/15/20 Albuterol Sulfate [Proair Hfa] 2 puff INHALATION RT-Q6H PRN 11/15/20 11/15/20 Atorvastatin [Lipitor] 20 mg PO DAILY 11/15/20 11/15/20 Fluticasone Propionate [Flovent 2 puff INHALATION RT-BID 11/15/20 11/15/20 Hfa 220 mcg] Tiotropium [place] [Spiriva] 1 cap INHALATION RT-DAILY 11/15/20 11/15/20 metFORMIN HCL [metFORMIN HCL ER] 1,500 mg PO W/SUPPER 11/15/20 11/15/20 predniSONE [Deltasone] 20 mg PO DAILY 11/15/20 11/15/20 Previous Rx's Medication Instructions Recorded Metoprolol Tartrate [Lopressor] 25 mg PO BID #60 tab 09/18/15 Magnesium Oxide [Mag-Ox] 400 mg PO DAILY #30 tablet 07/11/16 Isosorbide Mononitrate ER [Imdur] 30 mg PO DAILY #30 tab 02/05/18 Azithromycin [Zithromax] 500 mg PO DAILY 5 Days #5 tab 11/17/20 Cefuroxime Axetil [Ceftin] 500 mg PO BID 5 Days #10 tab 11/17/20 predniSONE 10 mg PO DIRECTED #30 tab 11/17/20 Allergies Allergy/AdvReac Type Severity Reaction Status Date / Time Penicillins Allergy Severe Swelling Verified 12/13/20 14:44 Iodinated Contrast Media Allergy Swelling Verified 12/13/20 14:44 [Iodinated Contrast- Oral and IV Dye] iodine Allergy Itching, Verified 12/13/20 14:44 Hives phenobarbital AdvReac Drowsiness Verified 12/13/20 14:44 Review of Systems ROS Statement: Those systems with pertinent positive or pertinent negative responses have been documented in the HPI. ROS Other: All systems not noted in ROS Statement are negative. Past Medical History Past Medical History: Asthma, Coronary Artery Disease (CAD), Chest Pain / Angina, Heart Failure, COPD, CVA/TIA, GERD/Reflux, Hyperlipidemia, Hypertension, Myocardial Infarction (DC), Osteoarthritis (OA), Pneumonia, Renal Disease, Seizure Disorder, Sleep Apnea/CPAP/BIPAP Additional Past Medical History / Comment(s): last seizure - 2014, hiatal hernia, chronic back pain, 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, lupus, continuous oxygen use at 3L, no cpap used, kidney failure with hemodilaysis in the past, 3 DC's, hypoglycemia Last Myocardial Infarction Date:: 2015 History of Any Multi-Drug Resistant Organisms: None Reported Past Surgical History: Cholecystectomy, Heart Catheterization, Heart Catheterization With Stent, Tonsillectomy Additional Past Surgical History / Comment(s): STATES 3 cardiac stents, Past Anesthesia/Blood Transfusion Reactions: No Reported Reaction Additional Past Anesthesia/Blood Transfusion Reaction / Comment(s): blood transfusion-no reaction, unknown family hx per spouse Date of Last Stent Placement:: 2015 Past Psychological History: Anxiety, Depression Smoking Status: Current every day smoker Past Alcohol Use History: None Reported Past Drug Use History: None Reported - Past Family History Father Family Medical History: Myocardial Infarction (DC) Mother Family Medical History: Asthma, Cancer, COPD General Exam Limitations: no limitations General appearance: alert, in distress (Moderate respiratory distress) Head exam: Present: atraumatic, normocephalic Eye exam: Present: normal appearance, PERRL ENT exam: Present: normal exam Neck exam: Present: normal inspection. Absent: tenderness, meningismus Respiratory exam: Present: respiratory distress, wheezes, rhonchi, decreased breath sounds Cardiovascular Exam: Present: regular rate, normal rhythm GI/Abdominal exam: Present: soft. Absent: distended, tenderness, guarding Extremities exam: Present: pedal edema (trace) Neurological exam: Present: alert, oriented X3, CN II-XII intact. Absent: motor sensory deficit Psychiatric exam: Present: normal affect, normal mood Skin exam: Present: warm, dry, intact Course Vital Signs 12/13/20 12/13/20 12/13/20 14:44 15:01 15:02 Temperature 98.2 F Pulse Rate 80 80 Respiratory 23 22 18 Rate Blood Pressure 151/80 118/59 O2 Sat by Pulse 90 L 90 L Oximetry 12/13/20 12/13/20 16:06 16:27 Temperature Pulse Rate 78 78 Respiratory Rate Blood Pressure O2 Sat by Pulse Oximetry EKG Findings - EKG Comments: EKG Findings:: EKG: Normal sinus rhythm, artifact on the baseline in lead 2, no specific ST segment elevation seen. Rate of 80, OH interval 156, QRS duration 88, QTC 442 Medical Decision Making - Medical Decision Making 60-year-old male something for evaluation of cough and dyspnea history of COPD. Patient in moderate respiratory distress with hypoxia, placed on 6 L nasal cannula. Chest x-ray showing chronic interstitial lung disease, no large focal pneumonia. Mild leukocytosis of 13.0. Otherwise laboratory testing is unremarkable. Patient given albuterol and Atrovent by EMS prior to arrival. He's given additional 5 mg of albuterol 0.5 mg of Atrovent as well as started on IV Solu-Medrol and emergency department. He will be admitted to Dr. Teran who is aware of the patient with Dr. Sherwood on consult. - Lab Data Result diagrams: 12/13/20 15:13 12/13/20 15:13 Lab Results 12/13/20 12/13/20 12/13/20 Range/Units 15:13 15:13 15:13 WBC 13.0 H (3.8-10.6) k/uL RBC 4.90 (4.30-5.90) m/uL Hgb 15.7 (13.0-17.5) gm/dL Hct 49.5 (39.0-53.0) % MCV 101.1 H (80.0-100.0) fL MCH 32.1 (25.0-35.0) pg MCHC 31.8 (31.0-37.0) g/dL RDW 15.5 (11.5-15.5) % Plt Count 151 (150-450) k/uL MPV 8.0 Neutrophils % 77 % Lymphocytes % 16 % Monocytes % 5 % Eosinophils % 2 % Basophils % 0 % Neutrophils # 10.0 H (1.3-7.7) k/uL Lymphocytes # 2.1 (1.0-4.8) k/uL Monocytes # 0.6 (0-1.0) k/uL Eosinophils # 0.2 (0-0.7) k/uL Basophils # 0.1 (0-0.2) k/uL Hypochromasia Slight Macrocytosis Slight PT 9.7 (9.0-12.0) sec INR 0.9 (<1.2) APTT 23.1 (22.0-30.0) sec Sodium 144 (137-145) mmol/L Potassium 4.2 (3.5-5.1) mmol/L Chloride 99 (98-107) mmol/L Carbon Dioxide 39 H (22-30) mmol/L Anion Gap 5 mmol/L BUN 10 (9-20) mg/dL Creatinine 0.69 (0.66-1.25) mg/dL Est GFR (CKD-EPI)AfAm >90 (>60 ml/min/1.73 sqM) Est GFR (CKD-EPI)NonAf >90 (>60 ml/min/1.73 sqM) Glucose 148 H (74-99) mg/dL Plasma Lactic Acid Otto (0.7-2.0) mmol/L Calcium 8.9 (8.4-10.2) mg/dL Magnesium 2.3 (1.6-2.3) mg/dL Total Bilirubin 0.4 (0.2-1.3) mg/dL AST 22 (17-59) U/L ALT 17 (4-49) U/L Alkaline Phosphatase 166 H (38-126) U/L Troponin I (0.000-0.034) ng/mL NT-Pro-B Natriuret Pep pg/mL Total Protein 6.4 (6.3-8.2) g/dL Albumin 3.9 (3.5-5.0) g/dL Coronavirus (PCR) (Not Detectd) 12/13/20 12/13/20 12/13/20 Range/Units 15:13 15:13 15:13 WBC (3.8-10.6) k/uL RBC (4.30-5.90) m/uL Hgb (13.0-17.5) gm/dL Hct (39.0-53.0) % MCV (80.0-100.0) fL MCH (25.0-35.0) pg MCHC (31.0-37.0) g/dL RDW (11.5-15.5) % Plt Count (150-450) k/uL MPV Neutrophils % % Lymphocytes % % Monocytes % % Eosinophils % % Basophils % % Neutrophils # (1.3-7.7) k/uL Lymphocytes # (1.0-4.8) k/uL Monocytes # (0-1.0) k/uL Eosinophils # (0-0.7) k/uL Basophils # (0-0.2) k/uL Hypochromasia Macrocytosis PT (9.0-12.0) sec INR (<1.2) APTT (22.0-30.0) sec Sodium (137-145) mmol/L Potassium (3.5-5.1) mmol/L Chloride (98-107) mmol/L Carbon Dioxide (22-30) mmol/L Anion Gap mmol/L BUN (9-20) mg/dL Creatinine (0.66-1.25) mg/dL Est GFR (CKD-EPI)AfAm (>60 ml/min/1.73 sqM) Est GFR (CKD-EPI)NonAf (>60 ml/min/1.73 sqM) Glucose (74-99) mg/dL Plasma Lactic Acid Otto 1.6 (0.7-2.0) mmol/L Calcium (8.4-10.2) mg/dL Magnesium (1.6-2.3) mg/dL Total Bilirubin (0.2-1.3) mg/dL AST (17-59) U/L ALT (4-49) U/L Alkaline Phosphatase (38-126) U/L Troponin I <0.012 (0.000-0.034) ng/mL NT-Pro-B Natriuret Pep 634 pg/mL Total Protein (6.3-8.2) g/dL Albumin (3.5-5.0) g/dL Coronavirus (PCR) (Not Detectd) 12/13/20 Range/Units 15:13 WBC (3.8-10.6) k/uL RBC (4.30-5.90) m/uL Hgb (13.0-17.5) gm/dL Hct (39.0-53.0) % MCV (80.0-100.0) fL MCH (25.0-35.0) pg MCHC (31.0-37.0) g/dL RDW (11.5-15.5) % Plt Count (150-450) k/uL MPV Neutrophils % % Lymphocytes % % Monocytes % % Eosinophils % % Basophils % % Neutrophils # (1.3-7.7) k/uL Lymphocytes # (1.0-4.8) k/uL Monocytes # (0-1.0) k/uL Eosinophils # (0-0.7) k/uL Basophils # (0-0.2) k/uL Hypochromasia Macrocytosis PT (9.0-12.0) sec INR (<1.2) APTT (22.0-30.0) sec Sodium (137-145) mmol/L Potassium (3.5-5.1) mmol/L Chloride (98-107) mmol/L Carbon Dioxide (22-30) mmol/L Anion Gap mmol/L BUN (9-20) mg/dL Creatinine (0.66-1.25) mg/dL Est GFR (CKD-EPI)AfAm (>60 ml/min/1.73 sqM) Est GFR (CKD-EPI)NonAf (>60 ml/min/1.73 sqM) Glucose (74-99) mg/dL Plasma Lactic Acid Otto (0.7-2.0) mmol/L Calcium (8.4-10.2) mg/dL Magnesium (1.6-2.3) mg/dL Total Bilirubin (0.2-1.3) mg/dL AST (17-59) U/L ALT (4-49) U/L Alkaline Phosphatase (38-126) U/L Troponin I (0.000-0.034) ng/mL NT-Pro-B Natriuret Pep pg/mL Total Protein (6.3-8.2) g/dL Albumin (3.5-5.0) g/dL Coronavirus (PCR) Not Detected (Not Detectd) Critical Care Time Critical Care Time: Yes Total Critical Care Time: 35 Disposition Clinical Impression: Acute exacerbation of chronic obstructive airways disease Disposition: ADMITTED IP TO THIS HOSP Condition: Stable Is patient prescribed a controlled substance at d/c from ED?: No Referrals: Damir Teran MD [Primary Care Provider] - 1-2 days Decision to Admit Reason: Admit from EC Decision Date: 12/13/20 Decision Time: 17:28
[2020-12-13 15:23] LABS: Basophils # (A) 0.1 k/uL (0-0.2); Basophils % (A) 0 %; Eosinophils # (A) 0.2 k/uL (0-0.7); Eosinophils % (A) 2 %; HCT 49.5 % (39.0-53.0); HGB 15.7 gm/dL (13.0-17.5); Hypochromasia Slight; Lymphocytes # (A) 2.1 k/uL (1.0-4.8); Lymphocytes % (A) 16 %; MCH 32.1 pg (25.0-35.0); MCHC 31.8 g/dL (31.0-37.0); MCV 101.1 fL (80.0-100.0); Macrocytosis Slight; Monocytes # (A) 0.6 k/uL (0-1.0); Monocytes % (A) 5 %; Neutrophils % (A) 77 %; Platelet Count 151 k/uL (150-450); RDW 15.5 % (11.5-15.5)
[2020-12-13 15:36] LABS: ALT 17 U/L (4-49); AST 22 U/L (17-59); African American GFR (CKD) >90 (>60 ml/min/1.73 sqM); Albumin 3.9 g/dL (3.5-5.0); Alkaline Phosphatase 166 U/L (38-126); Anion Gap 5 mmol/L; Blood Urea Nitrogen 10 mg/dL (9-20); Calcium 8.9 mg/dL (8.4-10.2); Chloride 99 mmol/L (98-107); Glucose 148 mg/dL (74-99); Magnesium 2.3 mg/dL (1.6-2.3); Non-African American GFR(CKD) >90 (>60 ml/min/1.73 sqM); Potassium 4.2 mmol/L (3.5-5.1); Sodium 144 mmol/L (137-145); Total Bilirubin 0.4 mg/dL (0.2-1.3); Total Protein 6.4 g/dL (6.3-8.2)
--- NOTE | 2020-12-13 15:48 | XR ---
EXAMINATION TYPE: XR chest 2V DATE OF EXAM: 12/13/2020 COMPARISON: 11/16/2020 TECHNIQUE: PA and lateral views submitted. HISTORY: Shortness of breath FINDINGS: The lungs are clear and there is no pneumothorax, pleural effusion, or focal pneumonia. Patchy bilateral interstitial changes with cardiomegaly. Arthropathy of the shoulders. No pneumothora x. Elevated left hemidiaphragm. IMPRESSION: 1. Cardiomegaly with coarsened interstitium correlate for chronic interstitial lung disease. Findings are fairly similar to the exam of 11/16/2020 and therefore chronic interstitial lung disease favored over acute interstitial pneumonitis correlate clinically.
[2020-12-13 15:51] LABS: Carbon Dioxide 39 mmol/L (22-30)
[2020-12-13 15:53] LABS: INR 0.9 (<1.2); Partial Thromboplastin Time 23.1 sec (22.0-30.0); Prothrombin Time 9.7 sec (9.0-12.0)
[2020-12-13] MEDS ORDERED: IPRATROPIUM-ALBUTEROL 3 ML NEB INHALATION PRN (17:24)
[2020-12-13] MEDS ORDERED: cefTRIAXone IN SWFI 1,000 MG/10 ML SYRINGE IVP STA (17:26)
[2020-12-13] MEDS ORDERED: AZITHROMYCIN 500 MG in SODIUM CHLORIDE 0.9% 250 ML IVPB STA (17:26)
[2020-12-13] MEDS: metFORMIN 500 MG TAB PO SCH ×2 (19:10→19:28)
[2020-12-13] MEDS: methylPREDNISolone SOD SUCCI 125 MG/2 ML VIAL IV SCH (19:10)
[2020-12-13] MEDS: HYDROcodone/APAP 7.5-325MG 1 EACH TAB PO PRN (19:34)
[2020-12-13] MEDS: IPRATROPIUM-ALBUTEROL 3 ML NEB INHALATION SCH (21:33)
[2020-12-13] MEDS: METOPROLOL TARTRATE 25 MG TAB PO SCH (23:37)
[2020-12-14] MEDS: methylPREDNISolone SOD SUCCI 125 MG/2 ML VIAL IV SCH ×3 (01:39→12:17)
[2020-12-14] MEDS: HYDROcodone/APAP 7.5-325MG 1 EACH TAB PO PRN ×3 (02:34→20:00)
[2020-12-14] MEDS: IPRATROPIUM-ALBUTEROL 3 ML NEB INHALATION SCH ×4 (07:27→20:33)
[2020-12-14] MEDS: metFORMIN 500 MG TAB PO SCH ×2 (08:50→18:02)
[2020-12-14] MEDS: FUROSEMIDE 80 MG TAB PO SCH ×2 (08:56→16:18)
[2020-12-14] MEDS: METOPROLOL TARTRATE 25 MG TAB PO SCH ×2 (08:56→20:00)
[2020-12-14] MEDS: ATORVASTATIN 20 MG TAB PO SCH (08:56)
[2020-12-14] MEDS: ISOSORBIDE MONONITRATE ER 30 MG TAB.ER.24H PO SCH (08:56)
[2020-12-14] MEDS: allopurinoL 100 MG TAB PO SCH (08:57)
[2020-12-14] MEDS: CLOPIDOGREL 75 MG TAB PO SCH (08:57)
[2020-12-14] MEDS: LORATADINE 10 MG TAB PO SCH (08:57)
[2020-12-14] MEDS: ASPIRIN 325 MG TAB PO SCH (08:57)
[2020-12-14] MEDS: FAMOTIDINE 20 MG TAB PO SCH (08:57)
--- NOTE | 2020-12-14 10:49 | P.CNPUL ---
History of Present Illness Consult date: 12/14/20 Reason for consult: dyspnea, cough, COPD, hypoxemia, obstructive sleep apnea Chief complaint: Shortness of breath and cough progressive for the last 2 days History of present illness: Patient is a 60-year-old morbidly obese male with prior history of COPD on chronic home oxygen, patient continued to smoke one pack per day he used to smoke 2 packs per day, he started having increasing shortness of breath 2 days prior to coming into the hospital cough and grayish sputum stay keep tenacious decided to come into the hospital denies any chest pain, he noted lower extremity swelling as well which is more than the baseline, patient lately has been not using his CPAP machine as he is feeling more claustrophobic feels p ressure is not adequate enough, other active problems include coronary artery disease, heart failure, history of CVA TIA, dyslipidemia, hypertension hypertensive cardiovascular disease seizure disorder and sleep apnea, his chest x-ray significant for cardiomegaly interstitial edema consistent with chronic lung disease overall not significantly changed compared to that performed on November 16, currently patient is being treated with bronchodilators IV steroids and continuation of his home medications feeling slightly better, white cell count is 13,000 Review of Systems All systems: negative Past Medical History Past Medical History: Asthma, Coronary Artery Disease (CAD), Chest Pain / Angina, Heart Failure, COPD, CVA/TIA, GERD/Reflux, Hyperlipidemia, Hypertension, Myocardial Infarction ([place]), Osteoarthritis (OA), Pneumonia, Renal Disease, Seizure Disorder, Sleep Apnea/CPAP/BIPAP Additional Past Medical History / Comment(s): last seizure - 2014, hiatal hernia, chronic back pain, 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, lupus, continuous oxygen use at 3L, no cpap used, kidney failure with hemodilaysis in the past, 3 AL's, hypoglycemia Last Myocardial Infarction Date:: 2016 History of Any Multi-Drug Resistant Organisms: None Reported Past Surgical History: Cholecystectomy, Heart Catheterization, Heart Catheterization With Stent, Tonsillectomy Additional Past Surgical History / Comment(s): STATES 3 cardiac stents, Past Anesthesia/Blood Transfusion Reactions: No Reported Reaction Additional Past Anesthesia/Blood Transfusion Reaction / Comment(s): blood transfusion-no reaction, unknown family hx per spouse Date of Last Stent Placement:: 2016 Past Psychological History: Anxiety, Depression Additional Psychological History / Comment(s): . Smoking Status: Current some day smoker Past Alcohol Use History: None Reported Additional Past Alcohol Use History / Comment(s): smokes 1/2 PPD, started at age 12 -was smoking 6ppd at one time Past Drug Use History: None Reported - Past Family History Father Family Medical History: Myocardial Infarction ([place]) Mother Family Medical History: Asthma, Cancer, COPD Medications and Allergies Home Medications Medication Instructions Recorded Confirmed Type Metoprolol Tartrate [Lopressor] 25 mg PO BID #60 tab 09/18/15 12/13/20 Rx Loratadine [Claritin] 10 mg PO DAILY 05/21/16 12/13/20 History PARoxetine [Paxil] 20 mg PO DAILY 05/21/16 12/13/20 History Phenytoin Sodium Extended 200 mg PO BID 05/21/16 12/13/20 History [Dilantin] Clopidogrel Bisulfate [Clopidogrel] 75 mg PO DAILY 05/22/16 12/13/20 History Magnesium Oxide [Mag-Ox] 400 mg PO DAILY #30 tablet 07/11/16 12/13/20 Rx rOPINIRole HCL [Requip] 1 mg PO BID 08/30/16 12/13/20 History Mycophenolate Mofetil [Cellcept] 1,000 mg PO DAILY 10/03/17 12/13/20 History Theophylline Anhydrous 400 mg PO DAILY 10/03/17 12/13/20 History [Theophylline] Ergocalciferol (Vitamin D2) 50,000 unit PO Q14D 02/04/18 12/13/20 History [Vitamin D2] Montelukast [Singulair] 10 mg PO DAILY@1500 02/04/18 12/13/20 History Nitroglycerin Sl Tabs [Nitrostat] 0.4 mg SUBLINGUAL Q5M PRN 02/04/18 12/13/20 History Potassium Chloride [Klor-Con 20] 20 meq PO Q48H 02/04/18 12/13/20 History Potassium Chloride [Klor-Con 20] 40 meq PO QAM 02/04/18 12/13/20 History allopurinoL [Zyloprim] 100 mg PO DAILY 02/04/18 12/13/20 History Isosorbide Mononitrate ER [Imdur] 30 mg PO DAILY #30 tab 02/05/18 12/13/20 Rx Furosemide [Lasix] 80 mg PO BID 08/05/19 12/13/20 History hydrOXYzine HCL [Atarax] 25 mg PO Q8H PRN 08/05/19 12/13/20 History mycophenolate mofetiL [Cellcept] 500 mg PO HS 08/05/19 12/13/20 History Aspirin 325 mg PO DAILY 05/12/20 12/13/20 History Famotidine 20 mg PO DAILY 05/12/20 12/13/20 History HYDROcodone/APAP 7.5-325MG [[place] 1 tab PO Q6H PRN 05/12/20 12/13/20 History 7.5-325] Multivitamins, Thera [Multivitamin 1 tab PO DAILY 05/12/20 12/13/20 History (formulary)] modafiniL [Provigil] 200 mg PO DAILY 05/12/20 12/13/20 History Albuterol Sulfate [Proair Hfa] 2 puff INHALATION RT-Q6H PRN 11/15/20 12/13/20 History Atorvastatin [Lipitor] 20 mg PO DAILY 11/15/20 12/13/20 History Fluticasone Propionate [Flovent 2 puff INHALATION RT-BID 11/15/20 12/13/20 History Hfa 220 mcg] Tiotropium [place] [Spiriva] 1 cap INHALATION RT-DAILY 11/15/20 12/13/20 History metFORMIN HCL [metFORMIN HCL ER] 1,500 mg PO W/SUPPER 11/15/20 12/13/20 History Cholestyramine (with Sugar) 4 gm PO DAILY 12/13/20 12/13/20 History [Cholestyramine Packet] Pregabalin [Lyrica] 200 mg PO TID 12/13/20 12/13/20 History Allergies Allergy/AdvReac Type Severity Reaction Status Date / Time Penicillins Allergy Severe Swelling Verified 12/13/20 18:22 Iodinated Contrast Media Allergy Swelling Verified 12/13/20 18:22 [Iodinated Contrast- Oral and IV Dye] iodine Allergy Itching, Verified 12/13/20 18:22 Hives phenobarbital AdvReac Drowsiness Verified 12/13/20 18:22 Physical Exam Vitals: Vital Signs Temp Pulse Pulse Resp BP BP BP 12/14/20 10:28 98.5 F 66 22 115/56 12/14/20 08:00 98.3 F 78 16 106/62 12/14/20 07:42 80 12/14/20 07:29 76 12/14/20 02:15 98.2 F 71 19 112/72 12/14/20 02:01 98.1 F 79 19 160/87 12/14/20 02:00 22 12/13/20 21:44 82 12/13/20 21:33 80 12/13/20 18:37 88 17 139/82 12/13/20 17:52 80 18 137/84 12/13/20 16:27 78 12/13/20 16:06 78 12/13/20 15:02 80 18 118/59 12/13/20 15:01 22 12/13/20 14:44 98.2 F 80 23 151/80 Pulse Ox 12/14/20 10:28 90 L 12/14/20 08:00 89 L 12/14/20 07:42 12/14/20 07:29 12/14/20 02:15 95 12/14/20 02:01 93 L 12/14/20 02:00 12/13/20 21:44 12/13/20 21:33 12/13/20 18:37 90 L 12/13/20 17:52 92 L 12/13/20 16:27 12/13/20 16:06 12/13/20 15:02 90 L 12/13/20 15:01 12/13/20 14:44 90 L Intake and Output 12/13/20 12/14/20 12/14/20 22:59 06:59 14:59 Intake Total 300 200 Balance 300 200 Intake: Oral 300 200 Other: Voiding Method Toilet # Voids 1 Weight 103.873 kg - Constitutional General appearance: morbidly obese - EENT Eyes: PERRLA Ears: bilateral: normal - Neck Neck: normal ROM Carotids: bilateral: upstroke normal - Respiratory Respiratory: bilateral: diminished, wheezing - Cardiovascular Rhythm: regular Heart sounds: normal: S1, S2 - Gastrointestinal General gastrointestinal: normal bowel sounds - Neurologic Neurologic: CNII-XII intact - Musculoskeletal Musculoskeletal: gait normal, generalized weakness, strength equal bilaterally - Psychiatric Psychiatric: A&O x's 3, appropriate affect, intact judgment & insight Results - Laboratory Findings CBC and BMP: 12/13/20 15:13 03/17/21 15:13 PT/INR, D-dimer PT 9.7 sec (9.0-12.0) 12/13/20 15:13 INR 0.9 (<1.2) 12/13/20 15:13 Abnormal lab findings: Abnormal Labs 12/13/20 12/13/20 15:13 15:13 WBC 13.0 H MCV 101.1 H Neutrophils # 10.0 H Carbon Dioxide 39 H Glucose 148 H Alkaline Phosphatase 166 H - Diagnostic Findings Chest x-ray: report reviewed, image reviewed (Occult pneumonia still cannot be excluded) Assessment and Plan Assessment: Suspected developing pneumonia Acute COPD exacerbation Tracheobronchitis Obstructive sleep apnea and sleep disorder breathing Morbid obesity History of coronary artery disease and [place] Plan: Continue breathing treatments Oral antibiotics Sputum for Gram stain and culture Steroids Supplemental oxygen Continue home medications Further recommendations pending plan of care as per clinical response of the patient Time with Patient: Greater than 30
--- NOTE | 2020-12-14 11:08 | P.PCN ---
Date of Procedure: 12/14/20 Preoperative Diagnosis: Bilateral pleural effusion Postoperative Diagnosis: As above Procedure(s) Performed: Right thoracentesis Anesthesia: local Surgeon: Moshe Sherwood Estimated Blood Loss (ml): 0 Condition: stable Disposition: floor Indications for Procedure: Shortness of breath and acute on chronic hypoxic respiratory failure bilateral pleural effusion GI bleed Operative Findings: As below Description of Procedure: Patient prepared and draped in the usual fashion, ultrasound used to confirm the location of fluid, patient explained about the procedure including risk alternative and complication, noted at the beginning of procedure saturation were just 85% oxygen increased to 10 L again, at eighth intercostal space one percent lidocaine was given after obtaining adequate local anesthesia gauge 24 needle was introduced into the skin above margin of the rib, noted aspiration of air instead of fluid, went one rib is to use above same aspiration of air noted procedure canceled a stat portable chest x-ray ordered
[2020-12-14] MEDS: DOXYCYCLINE 100 MG CAP PO SCH ×2 (11:41→20:00)
--- NOTE | 2020-12-14 12:20 | P.HPIM ---
History of Present Illness H&P Date: 12/14/20 Chief Complaint: Worsening shortness of breath This is 60-year-old gentleman follows with Dr. Teran in the office with past medical history of CAD-myocardial infarction, cardiac stents, seizure disorder, CVA with residual left arm weakness SLE, COPD on 3 L home O2, nicotine dependence-2 packs per day, brought to the ER via EMS in all hypoxic respiratory distress wearing 6 L nasal cannula. Patient reports worsening shortness of breath 2 days accompanied by productive cough, thick herrmann sputum and increased pedal edema. Reports he has not been compliant with his CPAP machine, secondary to being claustrophobic. Denies chest pain, palpitations. Denies lightheadednes s, dizziness or focal deficits. Afebrile, WBC 13. BUN 10, creatinine 0.69. Glucose 148. Lactic acid 1.6. Alk phos 166, troponin negative 1, BNP 634. Coronavirus not detected. Chest x-ray reporting cardiomegaly with coarsened interstitial, chronic interstitial lung disease, similar to prior exam in October 2020. Telemetry sinus rhythm. Received duo nebs by EMS and in the ER with IV steroids initiated in the ER. Review of Systems ROS Statement: Those systems with pertinent positive or pertinent negative responses have been documented in the HPI. ROS Other: All systems not noted in ROS Statement are negative. Past Medical History Past Medical History: Asthma, Coronary Artery Disease (CAD), Chest Pain / Angina, Heart Failure, COPD, CVA/TIA, GERD/Reflux, Hyperlipidemia, Hypertension, Myocardial Infarction ([place]), Osteoarthritis (OA), Pneumonia, Renal Disease, Seizure Disorder, Sleep Apnea/CPAP/BIPAP Additional Past Medical History / Comment(s): last seizure - 2014, hiatal hernia, chronic back pain, 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, lupus, continuous oxygen use at 3L, no cpap used, kidney failure with hemodilaysis in the past, 3 ME's, hypoglycemia Last Myocardial Infarction Date:: 2015 History of Any Multi-Drug Resistant Organisms: None Reported Past Surgical History: Cholecystectomy, Heart Catheterization, Heart Catheterization With Stent, Tonsillectomy Additional Past Surgical History / Comment(s): STATES 3 cardiac stents, Past Anesthesia/Blood Transfusion Reactions: No Reported Reaction Additional Past Anesthesia/Blood Transfusion Reaction / Comment(s): blood transfusion-no reaction, unknown family hx per spouse Date of Last Stent Placement:: 2015 Past Psychological History: Anxiety, Depression Additional Psychological History / Comment(s): . Smoking Status: Current some day smoker Past Alcohol Use History: None Reported Additional Past Alcohol Use History / Comment(s): smokes 1/2 PPD, started at age 12 -was smoking 6ppd at one time Past Drug Use History: None Reported - Past Family History Father Family Medical History: Myocardial Infarction ([place]) Mother Family Medical History: Asthma, Cancer, COPD Medications and Allergies Home Medications Medication Instructions Recorded Confirmed Type Metoprolol Tartrate [Lopressor] 25 mg PO BID #60 tab 09/18/15 12/13/20 Rx Loratadine [Claritin] 10 mg PO DAILY 05/21/16 12/13/20 History PARoxetine [Paxil] 20 mg PO DAILY 05/21/16 12/13/20 History Phenytoin Sodium Extended 200 mg PO BID 05/21/16 12/13/20 History [Dilantin] Clopidogrel Bisulfate [Clopidogrel] 75 mg PO DAILY 05/22/16 12/13/20 History Magnesium Oxide [Mag-Ox] 400 mg PO DAILY #30 tablet 07/11/16 12/13/20 Rx rOPINIRole HCL [Requip] 1 mg PO BID 08/30/16 12/13/20 History Mycophenolate Mofetil [Cellcept] 1,000 mg PO DAILY 10/03/17 12/13/20 History Theophylline Anhydrous 400 mg PO DAILY 10/03/17 12/13/20 History [Theophylline] Ergocalciferol (Vitamin D2) 50,000 unit PO Q14D 02/04/18 12/13/20 History [Vitamin D2] Montelukast [Singulair] 10 mg PO DAILY@1500 02/04/18 12/13/20 History Nitroglycerin Sl Tabs [Nitrostat] 0.4 mg SUBLINGUAL Q5M PRN 02/04/18 12/13/20 History Potassium Chloride [Klor-Con 20] 20 meq PO Q48H 02/04/18 12/13/20 History Potassium Chloride [Klor-Con 20] 40 meq PO QAM 02/04/18 12/13/20 History allopurinoL [Zyloprim] 100 mg PO DAILY 02/04/18 12/13/20 History Isosorbide Mononitrate ER [Imdur] 30 mg PO DAILY #30 tab 02/05/18 12/13/20 Rx Furosemide [Lasix] 80 mg PO BID 08/05/19 12/13/20 History hydrOXYzine HCL [Atarax] 25 mg PO Q8H PRN 08/05/19 12/13/20 History mycophenolate mofetiL [Cellcept] 500 mg PO HS 08/05/19 12/13/20 History Aspirin 325 mg PO DAILY 05/12/20 12/13/20 History Famotidine 20 mg PO DAILY 05/12/20 12/13/20 History HYDROcodone/APAP 7.5-325MG [[place] 1 tab PO Q6H PRN 05/12/20 12/13/20 History 7.5-325] Multivitamins, Thera [Multivitamin 1 tab PO DAILY 05/12/20 12/13/20 History (formulary)] modafiniL [Provigil] 200 mg PO DAILY 05/12/20 12/13/20 History Albuterol Sulfate [Proair Hfa] 2 puff INHALATION RT-Q6H PRN 11/15/20 12/13/20 History Atorvastatin [Lipitor] 20 mg PO DAILY 11/15/20 12/13/20 History Fluticasone Propionate [Flovent 2 puff INHALATION RT-BID 11/15/20 12/13/20 History Hfa 220 mcg] Tiotropium [place] [Spiriva] 1 cap INHALATION RT-DAILY 11/15/20 12/13/20 History metFORMIN HCL [metFORMIN HCL ER] 1,500 mg PO W/SUPPER 11/15/20 12/13/20 History Cholestyramine (with Sugar) 4 gm PO DAILY 12/13/20 12/13/20 History [Cholestyramine Packet] Pregabalin [Lyrica] 200 mg PO TID 12/13/20 12/13/20 History Allergies Allergy/AdvReac Type Severity Reaction Status Date / Time Penicillins Allergy Severe Swelling Verified 12/13/20 18:22 Iodinated Contrast Media Allergy Swelling Verified 12/13/20 18:22 [Iodinated Contrast- Oral and IV Dye] iodine Allergy Itching, Verified 12/13/20 18:22 Hives phenobarbital AdvReac Drowsiness Verified 12/13/20 18:22 Physical Exam Vitals: Vital Signs Temp Pulse Pulse Resp BP BP BP 12/14/20 11:29 76 12/14/20 11:08 72 12/14/20 10:28 98.5 F 66 22 115/56 12/14/20 08:00 98.3 F 78 16 106/62 12/14/20 07:42 80 12/14/20 07:29 76 12/14/20 02:15 98.2 F 71 19 112/72 12/14/20 02:01 98.1 F 79 19 160/87 12/14/20 02:00 22 12/13/20 21:44 82 12/13/20 21:33 80 12/13/20 18:37 88 17 139/82 12/13/20 17:52 80 18 137/84 12/13/20 16:27 78 12/13/20 16:06 78 12/13/20 15:02 80 18 118/59 12/13/20 15:01 22 12/13/20 14:44 98.2 F 80 23 151/80 Pulse Ox 12/14/20 11:29 12/14/20 11:08 12/14/20 10:28 90 L 12/14/20 08:00 89 L 12/14/20 07:42 12/14/20 07:29 12/14/20 02:15 95 12/14/20 02:01 93 L 12/14/20 02:00 12/13/20 21:44 12/13/20 21:33 12/13/20 18:37 90 L 12/13/20 17:52 92 L 12/13/20 16:27 12/13/20 16:06 12/13/20 15:02 90 L 12/13/20 15:01 12/13/20 14:44 90 L Intake and Output 12/13/20 12/14/20 12/14/20 22:59 06:59 14:59 Intake Total 300 200 Balance 300 200 Intake: Oral 300 200 Other: Voiding Method Toilet # Voids 1 Weight 103.873 kg General: Obese, alert and oriented times 3, sitting up at side of bed.NAD.] HEENT: [PERRL. EOMI. No pharyngeal erythema or exudate.] Neck: [Supple, No adenopathy.] Cardiac: [Heart regular in rate and rhythm. No S3. No S4. No clicks, rubs. No murmur.] Lungs: Minimal air exchange, bilateral bases diminished.Fine expiratory wheezing Abdomen: [Soft , nontender ,No mass. No organomegaly. Bowel sounds presnt and normoactive in all 4 quadrants.] Extremes: [No edema no cyanosis no claudication normal pulses] Musculoskeletal: [No joint erythema, edema or tenderness.] Skin: [Warm and dry, No rash.] Neurologic: [No lateralizing deficits. CN II - XII grossly intact; chronic residual left arm weakness.] Lymphatic: [No adenopathy.] Results CBC & Chem 7: 12/13/20 15:13 12/13/20 15:13 Labs: Abnormal Lab Results - Last 24 Hours (Table) 12/13/20 12/13/20 Range/Units 15:13 15:13 WBC 13.0 H (3.8-10.6) k/uL MCV 101.1 H (80.0-100.0) fL Neutrophils # 10.0 H (1.3-7.7) k/uL Carbon Dioxide 39 H (22-30) mmol/L Glucose 148 H (74-99) mg/dL Alkaline Phosphatase 166 H (38-126) U/L Thrombosis Risk Factor Assmnt - Choose All That Apply Each Factor Represents 1 point: Abnormal pulmonary function (COPD) Thrombosis Risk Factor Assessment Total Risk Factor Score: 1 Thrombosis Risk Factor Assessment Level: Low Risk Assessment and Plan Assessment: Acute COPD exacerbation Acute on chronic hypoxic, hypercapnic respiratory failure, wears 3 L nasal cannula O2 at home Chronic interstitial lung disease Nicotine dependence Anemia of chronic disease History of CVA with residual left arm weakness Hypertension Chronic Systolic CHF, Ischemic heart disease CAD, history of [place] cardiac stent Obstructive sleep apnea Morbid Obesity, BMI 33.8 Plan: Continue on current medication regime ,monitoring and symptomatic treatm ent. Maintain nebulized bronchodilators, steroids, antibiotics. Sputum culture not yet collected. Evaluated by pulmonary with recommendations noted and appreciated. The impression and plan of care has been dictated as directed. : I performed a history and examination of this patient, discussed the same with the dictator. I agree with the dictator's note ,documented as a scribe. Any additional findings or plans will be noted.
[2020-12-14 12:46] LABS: Glucose,Whole Blood 185 mg/dL (75-99)
[2020-12-14] MEDS: PANTOPRAZOLE 40 MG/10 ML VIAL IVP SCH (12:53)
[2020-12-14] MEDS: INSULIN ASPART (NovoLOG) 100 UNIT/ML VIAL SQ SCH ×3 (13:00→20:34)
[2020-12-14] MEDS ORDERED: HALOPERIDOL LACTATE 5 MG/ML 1 ML VIAL IM PRN (17:11)
[2020-12-14] MEDS ORDERED: methylPREDNISolone SOD SUCCI 40 MG/ML 1 ML VIAL IV ONE (18:00)
[2020-12-14 20:37] LABS: Glucose,Whole Blood 172 mg/dL (75-99)
[2020-12-14] MEDS: HALOPERIDOL LACTATE 5 MG/ML 1 ML VIAL IM PRN (22:17)
[2020-12-15] MEDS ORDERED: methylPREDNISolone SOD SUCCI 40 MG/ML 1 ML VIAL IV ONE ×4 (01:30→12:00)
[2020-12-15] MEDS: HALOPERIDOL LACTATE 5 MG/ML 1 ML VIAL IM PRN ×2 (01:33→07:12)
[2020-12-15 01:35] LABS: Hemoglobin A1C 6.6 % (4.0-6.0)
[2020-12-15] MEDS: ISOSORBIDE MONONITRATE ER 30 MG TAB.ER.24H PO SCH (07:09)
[2020-12-15] MEDS: METOPROLOL TARTRATE 25 MG TAB PO SCH (07:09)
[2020-12-15] MEDS: FUROSEMIDE 80 MG TAB PO SCH (07:10)
[2020-12-15] MEDS: IPRATROPIUM-ALBUTEROL 3 ML NEB INHALATION SCH ×2 (07:21→11:01)
[2020-12-15 07:24] LABS: Glucose,Whole Blood 148 mg/dL (75-99)
[2020-12-15 07:38] VITALS: RESP 18
[2020-12-15] MEDS: metFORMIN 500 MG TAB PO SCH (07:49)
[2020-12-15] MEDS: INSULIN ASPART (NovoLOG) 100 UNIT/ML VIAL SQ SCH ×2 (07:51→11:26)
[2020-12-15 07:58] VITALS: BP 160/89
[2020-12-15] MEDS: CLOPIDOGREL 75 MG TAB PO SCH (09:09)
[2020-12-15] MEDS: ATORVASTATIN 20 MG TAB PO SCH (09:09)
[2020-12-15] MEDS: ASPIRIN 325 MG TAB PO SCH (09:09)
[2020-12-15] MEDS: DOXYCYCLINE 100 MG CAP PO SCH (09:09)
[2020-12-15] MEDS: LORATADINE 10 MG TAB PO SCH (09:10)
[2020-12-15] MEDS: allopurinoL 100 MG TAB PO SCH (09:10)
[2020-12-15] MEDS: FAMOTIDINE 20 MG TAB PO SCH (09:10)
[2020-12-15] MEDS: PANTOPRAZOLE 40 MG/10 ML VIAL IVP SCH (09:19)
--- NOTE | 2020-12-15 09:22 | P.PN ---
Subjective Progress Note Date: 12/15/20 Principal diagnosis: Suspected developing pneumonia Acute COPD exacerbation Tracheobronchitis Obstructive sleep apnea and sleep disorder breathing Morbid obesity History of coronary artery disease and [place] 12/15/2020, patient seen eval reexamined during the rounds labs reviewed medications reviewed still have ongoing cough congestion and wheezing, get short of breath activity and exertion, patient is afebrile with saturation of 94% 4 L oxygen Patient is a 60-year-old morbidly obese male with prior history of COPD on chronic home oxygen, patient continued to smoke one pack per day he used to smoke 2 packs per day, he started having increasing shortness of breath 2 days prior to coming into the hospital cough and grayish sputum stay keep tenacious decided to come into the hospital denies any chest pain, he noted lower extremity swelling as well which is more than the baseline, patient lately has been not using his CPAP machine as he is feeling more claustrophobic feels pressure is not adequate enough, other active problems include coronary artery disease, heart failure, history of CVA TIA, dyslipidemia, hypertension hypertensive cardiovascular disease seizure disorder and sleep apnea, his chest x-ray significant for cardiomegaly interstitial edema consistent with chronic lung disease overall not significantly changed compared to that performed on November 16, currently patient is being treated with bronchodilators IV steroids and continuation of his home medications feeling slightly better, white cell count is 13,000 Objective - Vital Signs Vital signs: Vital Signs Temp 97.6 F 12/15/20 06:30 Pulse 70 12/15/20 07:57 Resp 18 12/15/20 07:57 BP 160/89 12/15/20 07:57 Pulse Ox 94 L 12/15/20 07:57 Intake & Output 12/14/20 12/15/20 12/15/20 18:59 06:59 18:59 Intake Total 500 Balance 500 Intake: Oral 500 Other: Voiding Method Toilet # Voids 1 1 - Exam - Constitutional General appearance: morbidly obese - EENT Eyes: PERRLA Ears: bilateral: normal - Neck Neck: normal ROM Carotids: bilateral: upstroke normal - Respiratory Respiratory: bilateral: diminished, wheezing - Cardiovascular Rhythm: regular Heart sounds: normal: S1, S2 - Gastrointestinal General gastrointestinal: normal bowel sounds - Neurologic Neurologic: CNII-XII intact - Musculoskeletal Musculoskeletal: gait normal, generalized weakness, strength equal bilaterally - Psychiatric Psychiatric: A&O x's 3, appropriate affect, intact judgment & insight - Labs CBC & Chem 7: 12/13/20 15:13 12/13/20 15:13 Labs: Abnormal Lab Results - Last 24 Hours (Table) 12/13/20 12/14/20 12/14/20 Range/Units 15:13 12:45 20:28 POC Glucose (mg/dL) 185 H 172 H (75-99) mg/dL Hemoglobin A1c 6.6 H (4.0-6.0) % 12/15/20 Range/Units 07:22 POC Glucose (mg/dL) 148 H (75-99) mg/dL Hemoglobin A1c (4.0-6.0) % Microbiology - Last 24 Hours (Table) 12/14/20 14:14 Gram Stain - Preliminary Sputum Sputum Culture - Preliminary 12/13/20 15:13 Blood Culture - Preliminary Blood No Growth after 24 hours 12/13/20 15:13 Blood Culture - Preliminary Blood No Growth after 24 hours Assessment and Plan Assessment: Suspected developing pneumonia Acute COPD exacerbation Tracheobronchitis Obstructive sleep apnea and sleep disorder breathing Morbid obesity History of coronary artery disease and [place] Plan: Continue breathing treatments Oral antibiotics Sputum for Gram stain and culture Steroids Supplemental oxygen Continue home medications Further recommendations pending plan of care as per clinical response of the patient Time with Patient: Greater than 30
[2020-12-15 10:53] LABS: Basophils # (A) 0.04 X 10*3/uL (0.00-0.10); Basophils % (A) 0.3 %; Eosinophils # (A) 0.04 X 10*3/uL (0.04-0.35); Eosinophils % (A) 0.3 %; HCT 50.4 % (39.6-50.0); Lymphocytes % (A) 15.6 %; MCH 33.1 pg (27.0-32.0); MCHC 31.7 g/dL (32.0-37.0); MCV 104.1 fL (80.0-97.0); Monocytes # (A) 0.58 X 10*3/uL (0.20-1.00); Neutrophils # (A) 9.03 X 10*3/uL (1.80-7.70); Neutrophils % (A) 78.3 %; Platelet Count 146 X 10*3/uL (140-440); RBC 4.84 X 10*6/uL (4.40-5.60); RDW 15.3 % (11.5-14.5); WBC 11.55 X 10*3/uL (4.50-10.00)
[2020-12-15 11:27] LABS: Glucose,Whole Blood 119 mg/dL (75-99)
[2020-12-15] MEDS ORDERED: NICOTINE 21MG/24HR PATCH TRANSDERM SCH (12:15)
[2020-12-15 12:33] LABS: African American GFR (CKD) 112.5 (60.0-200.0); Anion Gap 18.5 mmol/L (4.00-12.00); BUN/Creat Ratio 13.75 Ratio (12.00-20.00); Carbon Dioxide 25.5 mmol/L (21.6-31.8); Non-African American GFR(CKD) 97.1 (60.0-200.0); Potassium 4.6 mmol/L (3.5-5.5)
[2020-12-15 13:22] VITALS: PULSE 74; TEMP 98.1
--- NOTE | 2020-12-15 14:23 | P.DS ---
Providers Date of admission: 12/13/20 17:24 Expected date of discharge: 12/15/20 Attending physician: Damir Teran Consults: 12/13/20 17:24 Consult Physician Routine Consulting Provider: Moshe Sherwood Consult Reason/Comments: COPD Do you want consulting provider notified?: Yes Primary care physician: Damir Teran Hospital Course: Final Diagnoses: Acute COPD exacerbation Acute on chronic hypoxic, hypercapnic respiratory failure, wears 3 L nasal cannula O2 at home Acute metabolic encephalopathy secondary to steroid psychosis, improved Chronic interstitial lung disease Nicotine dependence Anemia of chronic disease History of CVA with residual left arm weakness Hypertension Chronic Systolic CHF, Ischemic heart disease CAD, history of [place] cardiac stent Obstructive sleep apnea Morbid Obesity, BMI 33.8 Hospital course:This is 60-year-old gentleman follows with Dr. Teran in the office with past medical history of CAD-myocardial infarction, cardiac stents, seizure disorder, CVA with residual left arm weakness SLE, COPD on 3 L home O2, nicotine dependence-2 packs per day, brought to the ER via EMS in all hypoxic respiratory distress wearing 6 L nasal cannula. Patient reports worsening shortness of breath 2 days accompanied by productive cough, thick herrmann sputum and increased pedal edema. Reports he has not been compliant with his CPAP machine, secondary to being claustrophobic. Denies chest pain, palpitations. Denies lightheadedness, dizziness or focal deficits. Afebrile, WBC 13. BUN 10, creatinine 0.69. Glucose 148. Lactic acid 1.6. Alk phos 166, troponin negative 1, BNP 634. Coronavirus not detected. Chest x-ray reporting cardiomegaly with coarsened interstitial, chronic interstitial lung disease, similar to prior exam in October 2020. Telemetry sinus rhythm. Received duo nebs by EMS and in the ER with IV steroids initiated in the ER. Maintained on nebulized bronchodilators, antibiotics and steroids. Evaluated / tx by pulmonary. Significant clinical improvement. Patient will be discharged home today in a stable condition with guarded prognosis, on 5 days more doxycycline and low-dose prednisone taper as recommended per PCP Dr. Teran. The impression and plan of care has been dictated as directed. : I performed a history and examination of this patient, discussed the same with the dictator. I agree with the dictator's note ,documented as a scribe. Any additional findings or plans will be noted. Patient Condition at Discharge: Stable Plan - Discharge Summary Discharge Rx Participant: No New Discharge Prescriptions: New predniSONE 10 mg PO DIRECTED #18 tab Doxycycline [Vibramycin] 100 mg PO BID 5 Days #10 cap No Action Metoprolol Tartrate [Lopressor] 25 mg PO BID #60 tab PARoxetine [Paxil] 20 mg PO DAILY Loratadine [Claritin] 10 mg PO DAILY Phenytoin Sodium Extended [Dilantin] 200 mg PO BID Clopidogrel Bisulfate [Clopidogrel] 75 mg PO DAILY Magnesium Oxide [Mag-Ox] 400 mg PO DAILY #30 tablet rOPINIRole HCL [Requip] 1 mg PO BID Theophylline Anhydrous [Theophylline] 400 mg PO DAILY Mycophenolate Mofetil [Cellcept] 1,000 mg PO DAILY allopurinoL [Zyloprim] 100 mg PO DAILY Ergocalciferol (Vitamin D2) [Vitamin D2] 50,000 unit PO Q14D Montelukast [Singulair] 10 mg PO DAILY@1500 Nitroglycerin Sl Tabs [Nitrostat] 0.4 mg SUBLINGUAL Q5M PRN PRN Reason: Chest Pain Potassium Chloride [Klor-Con 20] 20 meq PO Q48H Potassium Chloride [Klor-Con 20] 40 meq PO QAM Isosorbide Mononitrate ER [Imdur] 30 mg PO DAILY #30 tab Furosemide [Lasix] 80 mg PO BID hydrOXYzine HCL [Atarax] 25 mg PO Q8H PRN PRN Reason: Anxiety mycophenolate mofetiL [Cellcept] 500 mg PO HS HYDROcodone/APAP 7.5-325MG [[place] 7.5-325] 1 tab PO Q6H PRN PRN Reason: Pain Famotidine 20 mg PO DAILY modafiniL [Provigil] 200 mg PO DAILY Multivitamins, Thera [Multivitamin (formulary)] 1 tab PO DAILY Aspirin 325 mg PO DAILY metFORMIN HCL [metFORMIN HCL ER] 1,500 mg PO W/SUPPER Tiotropium Ponce [Spiriva] 1 cap INHALATION RT-DAILY Fluticasone Propionate [Flovent Hfa 220 mcg] 2 puff INHALATION RT-BID Atorvastatin [Lipitor] 20 mg PO DAILY Albuterol Sulfate [Proair Hfa] 2 puff INHALATION RT-Q6H PRN PRN Reason: Shortness Of Breath Pregabalin [Lyrica] 200 mg PO TID Cholestyramine (with Sugar) [Cholestyramine Packet] 4 gm PO DAILY Discharge Medication List Metoprolol Tartrate [Lopressor] 25 mg PO BID #60 tab 09/18/15 [Rx] Loratadine [Claritin] 10 mg PO DAILY 05/21/16 [History] PARoxetine [Paxil] 20 mg PO DAILY 05/21/16 [History] Phenytoin Sodium Extended [Dilantin] 200 mg PO BID 05/21/16 [History] Clopidogrel Bisulfate [Clopidogrel] 75 mg PO DAILY 05/22/16 [History] Magnesium Oxide [Mag-Ox] 400 mg PO DAILY #30 tablet 07/11/16 [Rx] rOPINIRole HCL [Requip] 1 mg PO BID 08/30/16 [History] Mycophenolate Mofetil [Cellcept] 1,000 mg PO DAILY 10/03/17 [History] Theophylline Anhydrous [Theophylline] 400 mg PO DAILY 10/03/17 [History] Ergocalciferol (Vitamin D2) [Vitamin D2] 50,000 unit PO Q14D 02/04/18 [History] Montelukast [Singulair] 10 mg PO DAILY@1500 02/04/18 [History] Nitroglycerin Sl Tabs [Nitrostat] 0.4 mg SUBLINGUAL Q5M PRN 02/04/18 [History] Potassium Chloride [Klor-Con 20] 20 meq PO Q48H 02/04/18 [History] Potassium Chloride [Klor-Con 20] 40 meq PO QAM 02/04/18 [History] allopurinoL [Zyloprim] 100 mg PO DAILY 02/04/18 [History] Isosorbide Mononitrate ER [Imdur] 30 mg PO DAILY #30 tab 02/05/18 [Rx] Furosemide [Lasix] 80 mg PO BID 08/05/19 [History] hydrOXYzine HCL [Atarax] 25 mg PO Q8H PRN 08/05/19 [History] mycophenolate mofetiL [Cellcept] 500 mg PO HS 08/05/19 [History] Aspirin 325 mg PO DAILY 05/12/20 [History] Famotidine 20 mg PO DAILY 05/12/20 [History] HYDROcodone/APAP 7.5-325MG [[place] 7.5-325] 1 tab PO Q6H PRN 05/12/20 [History] Multivitamins, Thera [Multivitamin (formulary)] 1 tab PO DAILY 05/12/20 [History] modafiniL [Provigil] 200 mg PO DAILY 05/12/20 [History] Albuterol Sulfate [Proair Hfa] 2 puff INHALATION RT-Q6H PRN 11/15/20 [History] Atorvastatin [Lipitor] 20 mg PO DAILY 11/15/20 [History] Fluticasone Propionate [Flovent Hfa 220 mcg] 2 puff INHALATION RT-BID 11/15/20 [History] Tiotropium Ponce [Spiriva] 1 cap INHALATION RT-DAILY 11/15/20 [History] metFORMIN HCL [metFORMIN HCL ER] 1,500 mg PO W/SUPPER 11/15/20 [History] Cholestyramine (with Sugar) [Cholestyramine Packet] 4 gm PO DAILY 12/13/20 [History] Pregabalin [Lyrica] 200 mg PO TID 12/13/20 [History] Doxycycline [Vibramycin] 100 mg PO BID 5 Days #10 cap 12/15/20 [Rx] predniSONE 10 mg PO DIRECTED #18 tab 12/15/20 [Rx] Follow up Appointment(s)/Referral(s): [facility], [NON-STAFF] - Damir Teran MD [Primary Care Provider] - 1-2 days Moshe Sherwood MD [STAFF PHYSICIAN] - 1 Week Patient Instructions/Handouts: COPD (Chronic Obstructive Pulmonary Disease) (DC)
[2020-12-16] MEDS ORDERED: PANTOPRAZOLE 40 MG TABLET PO SCH (07:30)
== END 2020-12-15 14:39 | disposition home health service (06) | DRG 190 ==
LOC: EC 14:41 → 4SSUR 17:24
PROVIDERS: ADMIT Family Medicine; ATTEND Family Medicine
PROC: 0WJ93ZZ Inspection of Right Pleural Cavity, Percutaneous Approach (ICD-10-PCS; principal; 2020-12-14)
DX: J44.1 Chronic obstructive pulmonary disease with (acute) exacerbation (principal); J96.21 Acute and chronic respiratory failure with hypoxia; J96.22 Acute and chronic respiratory failure with hypercapnia; G92 Toxic encephalopathy; I50.22 Chronic systolic (congestive) heart failure; J84.9 Interstitial pulmonary disease, unspecified; J90 Pleural effusion, not elsewhere classified; I11.0 Hypertensive heart disease with heart failure; E66.01 Morbid (severe) obesity due to excess calories; M32.9 Systemic lupus erythematosus, unspecified; I69.334 Monoplegia of upper limb following cerebral infarction affecting left non-dominant side; G40.909 Epilepsy, unspecified, not intractable, without status epilepticus; Z20.822 Contact with and (suspected) exposure to COVID-19; T38.0X5A Adverse effect of glucocorticoids and synthetic analogues, initial encounter; G47.33 Obstructive sleep apnea (adult) (pediatric); K21.9 Gastro-esophageal reflux disease without esophagitis; E78.5 Hyperlipidemia, unspecified; M19.90 Unspecified osteoarthritis, unspecified site; K44.9 Diaphragmatic hernia without obstruction or gangrene; I25.10 Atherosclerotic heart disease of native coronary artery without angina pectoris; I25.2 Old myocardial infarction; D63.8 Anemia in other chronic diseases classified elsewhere; F40.240 Claustrophobia; F17.210 Nicotine dependence, cigarettes, uncomplicated; Z68.33 Body mass index [BMI] 33.0-33.9, adult; Z99.81 Dependence on supplemental oxygen; Z91.19 Patient's noncompliance with other medical treatment and regimen; Z79.84 Long term (current) use of oral hypoglycemic drugs; Z79.82 Long term (current) use of aspirin; Z79.02 Long term (current) use of antithrombotics/antiplatelets; Z79.51 Long term (current) use of inhaled steroids; Z79.899 Other long term (current) drug therapy; Z90.49 Acquired absence of other specified parts of digestive tract; Z95.5 Presence of coronary angioplasty implant and graft; Z90.89 Acquired absence of other organs; Z98.890 Other specified postprocedural states; Z88.0 Allergy status to penicillin; Z88.8 Allergy status to other drugs, medicaments and biological substances; Z91.041 Radiographic dye allergy status; Z82.5 Family history of asthma and other chronic lower respiratory diseases; Z82.49 Family history of ischemic heart disease and other diseases of the circulatory system; Z80.9 Family history of malignant neoplasm, unspecified; F32.9 Major depressive disorder, single episode, unspecified; G89.29 Other chronic pain; M54.9 Dorsalgia, unspecified
CPT/HCPCS: 36415; 71046; 80048; 80053; 83036; 83605; 83735; 83880; 84484; 85025; 85610; 85730; 87040; 87070; 87205; 87635; 93005; 94640; 96365; 96375; 96376; 99285; 99291

== ENCOUNTER 2021-01-17 10:14 | Inpatient (IN) | payer OTHER ==
[2021-01-17] MEDS ORDERED: SODIUM CHLORIDE 0.9% 1,000 ML IV ONE (10:19)
[2021-01-17] MEDS ORDERED: SODIUM CHLORIDE 0.9% 1,000 ML IV STA (10:19)
[2021-01-17] MEDS ORDERED: NALOXONE 0.4 MG/ML 1 ML VIAL IVP STA (10:22)
--- NOTE | 2021-01-17 10:31 | ED ---
Altered Mental Status HPI - General Chief Complaint: Altered Mental Status Stated Complaint: unresponsive Time Seen by Provider: 01/17/21 10:14 Source: EMS, RN notes reviewed, old records reviewed Mode of arrival: EMS Limitations: no limitations - History of Present Illness Initial Comments: This is a [id number] male history of multiple medical problems including a [facility] in the past who was brought in by EMS today because of decreased level of consciousness. Apparently he was his normal self at about 11 PM last night when he went to bed but family was unable to arouse him this morning. EMS was called he did become more arousable when he was placed on his back when they were moving him. But he is been lethargic he is moving all of his extremities no reports of nausea vomiting or other was some question of decreased breath sounds on the right. Pulse ox. To be maintained as did blood pressure. He felt warm. No other information available at this time. Trauma reported. No seizure activity reported. MD Complaint: altered mental status, decreased responsiveness - Related Data Home Medications Medication Instructions Recorded Confirmed Loratadine [Claritin] 10 mg PO DAILY 05/21/16 01/17/21 PARoxetine [Paxil] 20 mg PO DAILY 05/21/16 01/17/21 Phenytoin Sodium Extended 200 mg PO BID 05/21/16 01/17/21 [Dilantin] Clopidogrel Bisulfate [Clopidogrel] 75 mg PO DAILY 05/22/16 01/17/21 rOPINIRole HCL [Requip] 1 mg PO BID 08/30/16 01/17/21 Mycophenolate Mofetil [Cellcept] 1,000 mg PO DAILY 10/03/17 01/17/21 Theophylline Anhydrous 400 mg PO DAILY 10/03/17 01/17/21 [Theophylline] Ergocalciferol (Vitamin D2) 50,000 unit PO Q14D 02/04/18 01/17/21 [Vitamin D2] Montelukast [Singulair] 10 mg PO DAILY@1500 02/04/18 01/17/21 Nitroglycerin Sl Tabs [Nitrostat] 0.4 mg SUBLINGUAL Q5M PRN 02/04/18 01/17/21 Potassium Chloride [Klor-Con 20] 20 meq PO Q48H 02/04/18 01/17/21 Potassium Chloride [Klor-Con 20] 40 meq PO QAM 02/04/18 01/17/21 allopurinoL [Zyloprim] 100 mg PO DAILY 02/04/18 01/17/21 Furosemide [Lasix] 80 mg PO BID 08/05/19 01/17/21 hydrOXYzine HCL [Atarax] 25 mg PO Q8H PRN 08/05/19 01/17/21 mycophenolate mofetiL [Cellcept] 500 mg PO HS 08/05/19 01/17/21 Aspirin 325 mg PO DAILY 05/12/20 01/17/21 Famotidine 20 mg PO DAILY 05/12/20 01/17/21 HYDROcodone/APAP 7.5-325MG [Veguita 1 tab PO Q6H PRN 05/12/20 01/17/21 7.5-325] Multivitamins, Thera [Multivitamin 1 tab PO DAILY 05/12/20 01/17/21 (formulary)] modafiniL [Provigil] 200 mg PO DAILY 05/12/20 01/17/21 Albuterol Sulfate [Proair Hfa] 2 puff INHALATION RT-Q6H PRN 11/15/20 01/17/21 Atorvastatin [Lipitor] 20 mg PO DAILY 11/15/20 01/17/21 Fluticasone Propionate [Flovent 2 puff INHALATION RT-BID 11/15/20 01/17/21 Hfa 220 mcg] Tiotropium [place] [Spiriva] 1 cap INHALATION RT-DAILY 11/15/20 01/17/21 metFORMIN HCL [metFORMIN HCL ER] 1,500 mg PO W/SUPPER 11/15/20 01/17/21 Cholestyramine (with Sugar) 4 gm PO DAILY 12/13/20 01/17/21 [Cholestyramine Packet] Pregabalin [Lyrica] 200 mg PO TID 12/13/20 01/17/21 Previous Rx's Medication Instructions Recorded Metoprolol Tartrate [Lopressor] 25 mg PO BID #60 tab 09/18/15 Magnesium Oxide [Mag-Ox] 400 mg PO DAILY #30 tablet 07/11/16 Isosorbide Mononitrate ER [Imdur] 30 mg PO DAILY #30 tab 02/05/18 Allergies Allergy/AdvReac Type Severity Reaction Status Date / Time Penicillins Allergy Severe Swelling Verified 01/17/21 10:23 Iodinated Contrast Media Allergy Swelling Verified 01/17/21 10:23 [Iodinated Contrast- Oral and IV Dye] iodine Allergy Itching, Verified 01/17/21 10:23 Hives phenobarbital AdvReac Drowsiness Verified 01/17/21 10:23 Review of Systems ROS Statement: Those systems with pertinent positive or pertinent negative responses have been documented in the HPI. ROS Other: All systems not noted in ROS Statement are negative. 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, lupus, continuous oxygen use at 3L, no cpap used, kidney failure with hemodilaysis in the past, 3 [place]'s, hypoglycemia Last Myocardial Infarction Date:: 2015 History of Any Multi-Drug Resistant Organisms: None Reported Past Surgical History: Cholecystectomy, Heart Catheterization, Heart Catheterization With Stent, Tonsillectomy Additional Past Surgical History / Comment(s): [place] 3 cardiac stents, Past Anesthesia/Blood Transfusion Reactions: No Reported Reaction Additional Past Anesthesia/Blood Transfusion Reaction / Comment(s): blood transfusion-no reaction, unknown family hx per spouse Date of Last Stent Placement:: 2015 Past Psychological History: Anxiety, Depression Smoking Status: Current some day smoker Past Alcohol Use History: None Reported Past Drug Use History: None Reported - Past Family History Father Family Medical History: Myocardial Infarction ([place]) Mother Family Medical History: Asthma, Cancer, COPD General Exam - General Exam Comments Initial Comments: This is a well-developed obese male was lethargic and obtunded though he does not seem to be extremity with respect to his respiratory efforts at this time. Limitations: no limitations General appearance: lethargic Head exam: Present: atraumatic, normocephalic, normal inspection Eye exam: Present: normal appearance, PERRL, EOMI. Absent: scleral icterus, conjunctival injection, periorbital swelling ENT exam: Present: mucous membranes dry Neck exam: Present: normal inspection. Absent: tenderness, meningismus, lymphadenopathy Respiratory exam: Present: normal lung sounds bilaterally. Absent: respiratory distress, wheezes, rales, rhonchi, stridor Cardiovascular Exam: Present: regular rate, normal rhythm, normal heart sounds. Absent: systolic murmur, diastolic murmur, rubs, gallop, clicks GI/Abdominal exam: Present: soft, normal bowel sounds, other (Obese abdomen). Absent: distended, tenderness, guarding, rebound, rigid, bruit, pulsatile mass Rectal exam: Present: normal inspection exam: Present: normal inspection Extremities exam: Present: normal inspection, full ROM, normal capillary refill. Absent: tenderness, pedal edema, joint swelling, calf tenderness Back exam: Present: normal inspection Neurological exam: Present: alert, altered, CN II-XII intact Psychiatric exam: Present: other (Unable to evaluate) Skin exam: Present: warm, dry, intact, normal color. Absent: rash Course Vital Signs 01/17/21 01/17/21 01/17/21 10:15 10:26 11:17 Temperature 97.6 F Pulse Rate 74 75 Respiratory 16 16 18 Rate Blood Pressure 186/96 162/100 O2 Sat by Pulse 97 97 Oximetry 01/17/21 01/17/21 01/17/21 12:00 12:26 12:30 Temperature Pulse Rate 73 75 Respiratory 20 Rate Blood Pressure 172/90 O2 Sat by Pulse 94 L 93 L Oximetry 01/17/21 01/17/21 01/17/21 12:38 12:46 13:00 Temperature Pulse Rate 71 76 75 Respiratory 20 20 Rate Blood Pressure 140/73 140/73 O2 Sat by Pulse 91 L 92 L Oximetry - Reevaluation(s) Reevaluation #1: 01/17/21 10:31 Additional information obtained from paramedics patient apparently did fall multiple times yesterday and EMS had been called but he refused transport to the hospital at that time. Reevaluation #2: 01/17/21 14:37 I did have a conversation the patient's family regarding findings I did review old charting was available. Reevaluation #3: 01/17/21 14:40 Vital signs are stable patient is maintaining oxygen saturation of approximately 96 on nasal cannula. Medical Decision Making - Medical Decision Making I did discuss with the patient's family patient will be admitted case was also discussed with Dr. Gorman. Consultation with neurology and pulmonary medicine. - Lab Data Result diagrams: 01/17/21 10:31 01/17/21 11:29 Lab Results 01/17/21 01/17/21 01/17/21 Range/Units 10:23 10:31 10:31 WBC 9.9 (3.8-10.6) k/uL RBC 5.05 (4.30-5.90) m/uL Hgb 16.9 (13.0-17.5) gm/dL Hct 54.1 H (39.0-53.0) % MCV 107.0 H D (80.0-100.0) fL MCH 33.5 (25.0-35.0) pg MCHC 31.3 (31.0-37.0) g/dL RDW 15.9 H (11.5-15.5) % Plt Count 210 (150-450) k/uL MPV 8.0 Neutrophils % Not Reportable Neutrophils % (Manual) 70 % Band Neuts % (Manual) 1 % Lymphocytes % Not Reportable Lymphocytes % (Manual) 17 % Monocytes % Not Reportable Monocytes % (Manual) 12 % Eosinophils % Not Reportable Eosinophils % (Manual) 1 % Basophils % Not Reportable Metamyelocytes % 1 % Myelocytes % 1 % Neutrophils # Not Reportable Neutrophils # (Manual) 7.00 (1.3-7.7) k/uL Lymphocytes # Not Reportable Lymphocytes # (Manual) 1.68 (1.0-4.8) k/uL Monocytes # Not Reportable Monocytes # (Manual) 1.19 H (0-1.0) k/uL Eosinophils # Not Reportable Eosinophils # (Manual) 0.10 (0-0.7) k/uL Basophils # Not Reportable Metamyelocytes # (Man) 0.10 H (0) k/uL Myelocytes # (Manual) 0.10 H (0) k/uL Nucleated RBCs 1 H (0-0) /100 WBC Manual Slide Review Performed Polychromasia Present Hypochromasia Marked Poikilocytosis Slight Anisocytosis (manual) Present Macrocytosis Marked A PT 10.4 (9.0-12.0) sec INR 1.0 (<1.2) APTT 23.0 (22.0-30.0) sec D-Dimer 0.79 H (<0.60) mg/L FEU VBG pH (7.31-7.41) VBG pCO2 (37-51) mmHg VBG HCO3 (24-28) mmol/L Sodium (137-145) mmol/L Potassium (3.5-5.1) mmol/L Chloride (98-107) mmol/L Carbon Dioxide (22-30) mmol/L Anion Gap mmol/L BUN (9-20) mg/dL Creatinine (0.66-1.25) mg/dL Est GFR (CKD-EPI)AfAm (>60 ml/min/1.73 sqM) Est GFR (CKD-EPI)NonAf (>60 ml/min/1.73 sqM) Glucose (74-99) mg/dL POC Glucose (mg/dL) 125 H (75-99) mg/dL POC Glu Bartender Server ID [place] Osmolality ([id number]) mosm/kg Plasma Lactic Acid Otto (0.7-2.0) mmol/L Calcium (8.4-10.2) mg/dL Magnesium (1.6-2.3) mg/dL Total Bilirubin (0.2-1.3) mg/dL AST (17-59) U/L ALT (4-49) U/L Alkaline Phosphatase (38-126) U/L Ammonia (<30) umol/L Creatine Kinase (55-170) U/L Troponin I (0.000-0.034) ng/mL C-Reactive Protein (<1.0) mg/dL NT-Pro-B Natriuret Pep pg/mL Total Protein (6.3-8.2) g/dL Albumin (3.5-5.0) g/dL Lipase (23-300) U/L Urine Color Urine Appearance (Clear) Urine pH (5.0-8.0) Ur Specific [place] (1.001-1.035) Urine Protein (Negative) Urine Glucose (UA) (Negative) Urine Ketones (Negative) Urine Blood (Negative) Urine Nitrite (Negative) Urine Bilirubin (Negative) Urine Urobilinogen (<2.0) mg/dL Ur Leukocyte Esterase (Negative) Ur Squamous Epith Cells (0-4) /hpf Urine Bacteria (None) /hpf Urine Mucus (None) /hpf Urine Opiates Screen (NotDetected) Ur Oxycodone Screen (NotDetected) Urine Methadone Screen (NotDetected) Ur Propoxyphene Screen (NotDetected) Ur Barbiturates Screen (NotDetected) Phenytoin ug/mL U Tricyclic Antidepress (NotDetected) Ur Phencyclidine Scrn (NotDetected) Ur Amphetamines Screen (NotDetected) U Methamphetamines Scrn (NotDetected) U Benzodiazepines Scrn (NotDetected) Urine Cocaine Screen (NotDetected) U Marijuana (THC) Screen (NotDetected) Serum Alcohol mg/dL Coronavirus (PCR) (Not Detectd) Influenza Type A RNA (Not Detectd) Influenza Type B (PCR) (Not Detectd) 01/17/21 01/17/21 01/17/21 Range/Units 10:31 10:31 10:32 WBC (3.8-10.6) k/uL RBC (4.30-5.90) m/uL Hgb (13.0-17.5) gm/dL Hct (39.0-53.0) % MCV (80.0-100.0) fL MCH (25.0-35.0) pg MCHC (31.0-37.0) g/dL RDW (11.5-15.5) % Plt Count (150-450) k/uL MPV Neutrophils % Neutrophils % (Manual) % Band Neuts % (Manual) % Lymphocytes % Lymphocytes % (Manual) % Monocytes % Monocytes % (Manual) % Eosinophils % Eosinophils % (Manual) % Basophils % Metamyelocytes % % Myelocytes % % Neutrophils # Neutrophils # (Manual) (1.3-7.7) k/uL Lymphocytes # Lymphocytes # (Manual) (1.0-4.8) k/uL Monocytes # Monocytes # (Manual) (0-1.0) k/uL Eosinophils # Eosinophils # (Manual) (0-0.7) k/uL Basophils # Metamyelocytes # (Man) (0) k/uL Myelocytes # (Manual) (0) k/uL Nucleated RBCs (0-0) /100 WBC Manual Slide Review Polychromasia Hypochromasia Poikilocytosis Anisocytosis (manual) Macrocytosis PT (9.0-12.0) sec INR (<1.2) APTT (22.0-30.0) sec D-Dimer (<0.60) mg/L FEU VBG pH 7.12 L* (7.31-7.41) VBG pCO2 119 H* (37-51) mmHg VBG HCO3 37 H (24-28) mmol/L Sodium (137-145) mmol/L Potassium (3.5-5.1) mmol/L Chloride (98-107) mmol/L Carbon Dioxide (22-30) mmol/L Anion Gap mmol/L BUN (9-20) mg/dL Creatinine (0.66-1.25) mg/dL Est GFR (CKD-EPI)AfAm (>60 ml/min/1.73 sqM) Est GFR (CKD-EPI)NonAf (>60 ml/min/1.73 sqM) Glucose (74-99) mg/dL POC Glucose (mg/dL) (75-99) mg/dL POC Glu Bartender Server ID Osmolality ([id number]) mosm/kg Plasma Lactic Acid Otto (0.7-2.0) mmol/L Calcium (8.4-10.2) mg/dL Magnesium (1.6-2.3) mg/dL Total Bilirubin (0.2-1.3) mg/dL AST (17-59) U/L ALT (4-49) U/L Alkaline Phosphatase (38-126) U/L Ammonia (<30) umol/L Creatine Kinase (55-170) U/L Troponin I 0.015 (0.000-0.034) ng/mL C-Reactive Protein (<1.0) mg/dL NT-Pro-B Natriuret Pep 3490 pg/mL Total Protein (6.3-8.2) g/dL Albumin (3.5-5.0) g/dL Lipase (23-300) U/L Urine Color Urine Appearance (Clear) Urine pH (5.0-8.0) Ur Specific [place] (1.001-1.035) Urine Protein (Negative) Urine Glucose (UA) (Negative) Urine Ketones (Negative) Urine Blood (Negative) Urine Nitrite (Negative) Urine Bilirubin (Negative) Urine Urobilinogen (<2.0) mg/dL Ur Leukocyte Esterase (Negative) Ur Squamous Epith Cells (0-4) /hpf Urine Bacteria (None) /hpf Urine Mucus (None) /hpf Urine Opiates Screen (NotDetected) Ur Oxycodone Screen (NotDetected) Urine Methadone Screen (NotDetected) Ur Propoxyphene Screen (NotDetected) Ur Barbiturates Screen (NotDetected) Phenytoin ug/mL U Tricyclic Antidepress (NotDetected) Ur Phencyclidine Scrn (NotDetected) Ur Amphetamines Screen (NotDetected) U Methamphetamines Scrn (NotDetected) U Benzodiazepines Scrn (NotDetected) Urine Cocaine Screen (NotDetected) U Marijuana (THC) Screen (NotDetected) Serum Alcohol mg/dL Coronavirus (PCR) (Not Detectd) Influenza Type A RNA (Not Detectd) Influenza Type B (PCR) (Not Detectd) 01/17/21 01/17/21 01/17/21 Range/Units 10:33 10:58 11:19 WBC (3.8-10.6) k/uL RBC (4.30-5.90) m/uL Hgb (13.0-17.5) gm/dL Hct (39.0-53.0) % MCV (80.0-100.0) fL MCH (25.0-35.0) pg MCHC (31.0-37.0) g/dL RDW (11.5-15.5) % Plt Count (150-450) k/uL MPV Neutrophils % Neutrophils % (Manual) % Band Neuts % (Manual) % Lymphocytes % Lymphocytes % (Manual) % Monocytes % Monocytes % (Manual) % Eosinophils % Eosinophils % (Manual) % Basophils % Metamyelocytes % % Myelocytes % % Neutrophils # Neutrophils # (Manual) (1.3-7.7) k/uL Lymphocytes # Lymphocytes # (Manual) (1.0-4.8) k/uL Monocytes # Monocytes # (Manual) (0-1.0) k/uL Eosinophils # Eosinophils # (Manual) (0-0.7) k/uL Basophils # Metamyelocytes # (Man) (0) k/uL Myelocytes # (Manual) (0) k/uL Nucleated RBCs (0-0) /100 WBC Manual Slide Review Polychromasia Hypochromasia Poikilocytosis Anisocytosis (manual) Macrocytosis PT (9.0-12.0) sec INR (<1.2) APTT (22.0-30.0) sec D-Dimer (<0.60) mg/L FEU VBG pH (7.31-7.41) VBG pCO2 (37-51) mmHg VBG HCO3 (24-28) mmol/L Sodium (137-145) mmol/L Potassium (3.5-5.1) mmol/L Chloride (98-107) mmol/L Carbon Dioxide (22-30) mmol/L Anion Gap mmol/L BUN (9-20) mg/dL Creatinine (0.66-1.25) mg/dL Est GFR (CKD-EPI)AfAm (>60 ml/min/1.73 sqM) Est GFR (CKD-EPI)NonAf (>60 ml/min/1.73 sqM) Glucose (74-99) mg/dL POC Glucose (mg/dL) (75-99) mg/dL POC Glu Bartender Server ID Osmolality ([id number]) mosm/kg Plasma Lactic Acid Otto (0.7-2.0) mmol/L Calcium (8.4-10.2) mg/dL Magnesium (1.6-2.3) mg/dL Total Bilirubin (0.2-1.3) mg/dL AST (17-59) U/L ALT (4-49) U/L Alkaline Phosphatase (38-126) U/L Ammonia (<30) umol/L Creatine Kinase (55-170) U/L Troponin I (0.000-0.034) ng/mL C-Reactive Protein (<1.0) mg/dL NT-Pro-B Natriuret Pep pg/mL Total Protein (6.3-8.2) g/dL Albumin (3.5-5.0) g/dL Lipase (23-300) U/L Urine Color Yellow Urine Appearance Clear (Clear) Urine pH 5.5 (5.0-8.0) Ur Specific [place] 1.023 (1.001-1.035) Urine Protein 1+ H (Negative) Urine Glucose (UA) Negative (Negative) Urine Ketones Negative (Negative) Urine Blood Negative (Negative) Urine Nitrite Negative (Negative) Urine Bilirubin Negative (Negative) Urine Urobilinogen <2.0 (<2.0) mg/dL Ur Leukocyte Esterase Negative (Negative) Ur Squamous Epith Cells <1 (0-4) /hpf Urine Bacteria Rare H (None) /hpf Urine Mucus Rare H (None) /hpf Urine Opiates Screen Not Detected (NotDetected) Ur Oxycodone Screen Not Detected (NotDetected) Urine Methadone Screen Not Detected (NotDetected) Ur Propoxyphene Screen Not Detected (NotDetected) Ur Barbiturates Screen Detected H (NotDetected) Phenytoin ug/mL U Tricyclic Antidepress Not Detected (NotDetected) Ur Phencyclidine Scrn Not Detected (NotDetected) Ur Amphetamines Screen Not Detected (NotDetected) U Methamphetamines Scrn Not Detected (NotDetected) U Benzodiazepines Scrn Not Detected (NotDetected) Urine Cocaine Screen Not Detected (NotDetected) U Marijuana (THC) Screen Not Detected (NotDetected) Serum Alcohol mg/dL Coronavirus (PCR) Not Detected (Not Detectd) Influenza Type A RNA Not Detected (Not Detectd) Influenza Type B (PCR) Not Detected (Not Detectd) 01/17/21 01/17/21 01/17/21 Range/Units 11:29 11:29 11:29 WBC (3.8-10.6) k/uL RBC (4.30-5.90) m/uL Hgb (13.0-17.5) gm/dL Hct (39.0-53.0) % MCV (80.0-100.0) fL MCH (25.0-35.0) pg MCHC (31.0-37.0) g/dL RDW (11.5-15.5) % Plt Count (150-450) k/uL MPV Neutrophils % Neutrophils % (Manual) % Band Neuts % (Manual) % Lymphocytes % Lymphocytes % (Manual) % Monocytes % Monocytes % (Manual) % Eosinophils % Eosinophils % (Manual) % Basophils % Metamyelocytes % % Myelocytes % % Neutrophils # Neutrophils # (Manual) (1.3-7.7) k/uL Lymphocytes # Lymphocytes # (Manual) (1.0-4.8) k/uL Monocytes # Monocytes # (Manual) (0-1.0) k/uL Eosinophils # Eosinophils # (Manual) (0-0.7) k/uL Basophils # Metamyelocytes # (Man) (0) k/uL Myelocytes # (Manual) (0) k/uL Nucleated RBCs (0-0) /100 WBC Manual Slide Review Polychromasia Hypochromasia Poikilocytosis Anisocytosis (manual) Macrocytosis PT (9.0-12.0) sec INR (<1.2) APTT (22.0-30.0) sec D-Dimer (<0.60) mg/L FEU VBG pH (7.31-7.41) VBG pCO2 (37-51) mmHg VBG HCO3 (24-28) mmol/L Sodium 147 H (137-145) mmol/L Potassium 5.2 H (3.5-5.1) mmol/L Chloride 102 (98-107) mmol/L Carbon Dioxide 38 H (22-30) mmol/L Anion Gap 7 mmol/L BUN 14 (9-20) mg/dL Creatinine 0.83 (0.66-1.25) mg/dL Est GFR (CKD-EPI)AfAm >90 (>60 ml/min/1.73 sqM) Est GFR (CKD-EPI)NonAf >90 (>60 ml/min/1.73 sqM) Glucose 134 H (74-99) mg/dL POC Glucose (mg/dL) (75-99) mg/dL POC Glu Bartender Server ID Osmolality 315 H (280-301) mosm/kg Plasma Lactic Acid Otto 0.6 L (0.7-2.0) mmol/L Calcium 8.8 (8.4-10.2) mg/dL Magnesium 2.5 H (1.6-2.3) mg/dL Total Bilirubin 0.5 (0.2-1.3) mg/dL AST 27 (17-59) U/L ALT 19 (4-49) U/L Alkaline Phosphatase 204 H (38-126) U/L Ammonia 95 H (<30) umol/L Creatine Kinase 48 L (55-170) U/L Troponin I (0.000-0.034) ng/mL C-Reactive Protein 6.2 H (<1.0) mg/dL NT-Pro-B Natriuret Pep pg/mL Total Protein 6.9 (6.3-8.2) g/dL Albumin 4.1 (3.5-5.0) g/dL Lipase 34 (23-300) U/L Urine Color Urine Appearance (Clear) Urine pH (5.0-8.0) Ur Specific [place] (1.001-1.035) Urine Protein (Negative) Urine Glucose (UA) (Negative) Urine Ketones (Negative) Urine Blood (Negative) Urine Nitrite (Negative) Urine Bilirubin (Negative) Urine Urobilinogen (<2.0) mg/dL Ur Leukocyte Esterase (Negative) Ur Squamous Epith Cells (0-4) /hpf Urine Bacteria (None) /hpf Urine Mucus (None) /hpf Urine Opiates Screen (NotDetected) Ur Oxycodone Screen (NotDetected) Urine Methadone Screen (NotDetected) Ur Propoxyphene Screen (NotDetected) Ur Barbiturates Screen (NotDetected) Phenytoin 3.9 ug/mL U Tricyclic Antidepress (NotDetected) Ur Phencyclidine Scrn (NotDetected) Ur Amphetamines Screen (NotDetected) U Methamphetamines Scrn (NotDetected) U Benzodiazepines Scrn (NotDetected) Urine Cocaine Screen (NotDetected) U Marijuana (THC) Screen (NotDetected) Serum Alcohol <10 mg/dL Coronavirus (PCR) (Not Detectd) Influenza Type A RNA (Not Detectd) Influenza Type B (PCR) (Not Detectd) - EKG Data -: EKG Interpreted by Me EKG Comments: EKG shows a rate of 75. Interval 170 QRS duration 110 QT since QTC 394/439 occasional PVCs possible left atrial enlargement - Radiology Data Radiology results: report reviewed (Imaging reviewed no definite evidence of PE evidence of CHF also evidence of infiltrate), image reviewed Critical Care Time Critical Care Time: Yes Total Critical Care Time: 49 Critical Care Time: Critical care time includes initial presentation with history physical labs x-ra ys discussed with paramedics multiple reevaluation the patient review of old charting discussed with family. Discussed with the main physician admission orders neck mentation of the above Disposition Clinical Impression: Altered mental status, Delirium due to general medical condition, Encephalopathy, Congestive heart failure, Chronic obstructive pulmonary disease with acute exacerbation, Pneumonia Disposition: ADMITTED IP TO THIS HOSP Condition: Fair Referrals: Damir Teran MD [Primary Care Provider] - 1-2 days
[2021-01-17 10:44] LABS: Glucose,Whole Blood 125 mg/dL (75-99)
--- NOTE | 2021-01-17 11:01 | CT ---
EXAMINATION TYPE: CT brain cspine wo con DATE OF EXAM: 01/17/2021 COMPARISON: CT brain dated 06/09/2016. CT cervical spine dated 11/15/2014. HISTORY: Unresponsive with headache and neck pain. CT DLP: 1794.5 mGycm. Automated Exposure Control for Dose Reduction was Utilized. TECHNIQUE: CT scan of the head and cervical spine are performed without contrast. FINDINGS: There is no acute intracranial hemorrhage or midline shift identified. The ventricles an d sulci are within normal limits in size. Winters-white matter patchy fairly well maintained. The calvar ium is intact. The globes are intact and the visualized sinuses are clear. Cervical spine is redemonstrated in its entirety from C1 through upper thoracic levels and redemonstr ates slight grade 1 retrolisthesis C3 on C4 with some ossific fusion. Prevertebral soft tissue appea rs within normal limits. The C1-C2 articulation is within normal limits on the coronal images. There is mild multilevel disc space narrowing with mild to moderate multilevel anterior spurring redemonst rated. Spinal canal is grossly preserved. Increased motion artifact on current study. Axial images sh ow right posterior bony projection effacing the anterolateral thecal sac at inferior C3 level similar to prior. Axial images show additional multilevel uncovertebral facet degenerative changes bilateral ly reference bilateral C4-C5 and C5-C6 levels contributing to bilateral neural foraminal narrowing si milar to prior. Thyroid gland is within normal limits. Lung apices show no pneumothorax. IMPRESSION: 1. There is no acute fracture or dislocation evident in the cervical spine. 2. No acute intracranial hemorrhage or midline shift is seen.
[2021-01-17 11:05] LABS: HCT 54.1 % (39.0-53.0); HGB 16.9 gm/dL (13.0-17.5); Hypochromasia Marked; MCH 33.5 pg (25.0-35.0); MCHC 31.3 g/dL (31.0-37.0); Macrocytosis Marked; Platelet Count 210 k/uL (150-450); Poikilocytosis Slight; RBC 5.05 m/uL (4.30-5.90); RDW 15.9 % (11.5-15.5)
--- NOTE | 2021-01-17 11:07 | XR ---
EXAMINATION TYPE: XR chest 1V portable DATE OF EXAM: 01/17/2021 COMPARISON: Prior chest x-ray December 13, 2020 and older studies. Prior chest CT August 06, 2019. HISTORY: Productive cough, history of pneumonia 2 weeks ago. History of COPD and asthma. TECHNIQUE: Single frontal supine view of the chest is obtained. FINDINGS: Diminish inspiration with elevated left hemidiaphragm. Chronic emphysematous and pulmonary fibrotic changes with persistent areas of increased opacity right mid and basilar region. New increas ed opacity left upper lung current study. Osseous structures are intact. Evaluation slightly suboptim al due to portable technique and patient's large body habitus. IMPRESSION: Cardiomegaly and chronic changes with diminished inspiration and elevated left hemidiaphr agm. Persistent right mid and lower lung opacities could reflect residual acute infiltrates. New left upper lung acute infiltrate.
[2021-01-17 11:16] LABS: Prothrombin Time 10.4 sec (9.0-12.0)
[2021-01-17 11:24] LABS: VBG PH 7.12 (7.31-7.41)
[2021-01-17] MEDS ORDERED: LEVOFLOXACIN 750MG-D5W PMX 750 MG in DEXTROSE/WATER 1 150ML.BAG IVPB STA (11:26)
[2021-01-17 12:17] LABS: Appearance,Urine Clear (Clear); Bacteria,Urine Rare /hpf; Bilirubin,Urine Negative (Negative); Blood,Urine Negative (Negative); Color,Urine Yellow; Glucose,Urine (UA) Negative (Negative); Ketones,Urine Negative (Negative); Leukocyte Esterase,Urine Negative (Negative); Mucus,Urine Rare /hpf; Nitrite,Urine Negative (Negative); PH, Urine 5.5 (5.0-8.0); Protein,Urine 1+ (Negative); Specific Gravity,Urine 1.023 (1.001-1.035); Squamous Epithelial Cell,Urine <1 /hpf (0-4); Urobilinogen,Urine <2.0 mg/dL (<2.0)
[2021-01-17] MEDS ORDERED: IPRATROPIUM-ALBUTEROL 3 ML NEB INHALATION STA (12:19)
[2021-01-17 12:20] LABS: Lactic Acid, Venous 0.6 mmol/L (0.7-2.0)
[2021-01-17 12:20] LABS: Amphetamine Screen,Urine Not Detected (NotDetected); Barbiturate Screen,Urine Detected (NotDetected); Benzodiazepines Screen,Urine Not Detected (NotDetected); Cocaine Screen,Urine Not Detected (NotDetected); Methadone Screen, Urine Not Detected (NotDetected); Opiate Screen,Urine Not Detected (NotDetected); Oxycodone Screen, Urine Not Detected (NotDetected); Phencyclidine Screen,Urine Not Detected (NotDetected); Tricyclic Antidepressant,Urine Not Detected (NotDetected); Urn Cannabinoid Scrn Not Detected (NotDetected)
[2021-01-17 12:26] LABS: ALT 19 U/L (4-49); AST 27 U/L (17-59); African American GFR (CKD) >90 (>60 ml/min/1.73 sqM); Albumin 4.1 g/dL (3.5-5.0); Alcohol <10 mg/dL; Alkaline Phosphatase 204 U/L (38-126); Blood Urea Nitrogen 14 mg/dL (9-20); C Reactive Protein 6.2 mg/dL (<1.0); Calcium 8.8 mg/dL (8.4-10.2); Chloride 102 mmol/L (98-107); Creatine Kinase 48 U/L (55-170); Glucose 134 mg/dL (74-99); Lipase 34 U/L (23-300); Magnesium 2.5 mg/dL (1.6-2.3); Non-African American GFR(CKD) >90 (>60 ml/min/1.73 sqM); Potassium 5.2 mmol/L (3.5-5.1); Sodium 147 mmol/L (137-145); Total Bilirubin 0.5 mg/dL (0.2-1.3); Total Protein 6.9 g/dL (6.3-8.2)
[2021-01-17 12:28] LABS: D-Dimer 0.79 mg/L FEU (<0.60)
[2021-01-17 12:30] LABS: Anion Gap 7 mmol/L
[2021-01-17 12:32] LABS: Carbon Dioxide 38 mmol/L (22-30)
[2021-01-17 12:44] LABS: Band Neutrophils % 1 %; Lymphocytes # (M) 1.68 k/uL (1.0-4.8); Metamyelocytes % 1 %; Monocytes # (M) 1.19 k/uL (0-1.0); Myelocytes % 1 %; Neutrophils % (M) 70 %; Nucleated Red Blood Cells 1 /100 WBC (0-0); Total Cells Counted 200; WBC 9.9 k/uL (3.8-10.6)
[2021-01-17 12:45] LABS: Anisocytosis (M) Present; Polychromasia Present
[2021-01-17] MEDS ORDERED: FAMOTIDINE 20 MG/2 ML VIAL IV STA (12:58)
[2021-01-17] MEDS ORDERED: diphenhydrAMINE 50 MG/ML 1 ML VIAL IVP STA (12:58)
[2021-01-17] MEDS ORDERED: methylPREDNISolone SOD SUCCI 125 MG/2 ML VIAL IV STA ×2 (12:58→14:33)
[2021-01-17] MEDS ORDERED: PHENYTOIN SODIUM INJ 500 MG in SODIUM CHLORIDE 0.9% 100 ML IVPB STA (13:57)
--- NOTE | 2021-01-17 14:27 | CT ---
EXAMINATION TYPE: CT angio chest DATE OF EXAM: 01/17/2021 2:07 PM COMPARISON: Chest CT August 06, 2019. Chest x-ray earlier today. HISTORY: PE suspected, shortness of breath and weakness. CT DLP: 825.9 mGycm Automated exposure control for dose reduction was used. CONTRAST: CTA scan of the thorax is performed without and with IV Contrast, patient injected with 100 ml mL of Isovue 370, pulmonary embolism protocol. MIP images are created and reviewed. FINDINGS: LUNGS: Exam is suboptimal as patient unable to hold breath causing significant motion artifact degrad ation there are tiny bilateral pleural effusions. There are dependent areas of atelectasis and/or tilley ited consolidation in the lower lobes. There is additional right lateral peripheral consolidation in the lower lung. Additional scattered areas of linear scarring and atelectasis. No pneumothorax seen b ilaterally.1 MEDIASTINUM: There is suboptimal contrast opacification of the pulmonary arteries with heterogeneity in the periphery. There is no large central pulmonary embolism. , Cannot exclude smaller segmental an d subsegmental PE on this study. More prominent cardiomegaly is identified. Moderate to severe three- vessel coronary artery calcification. No pericardial effusion. New prominent bilateral hilar lymph no maddie. Prominent subcarinal 2.5 x 1.1 cm lymph node axial image 57 on current study. OTHER: Visualized liver locales relative to spleen suggesting fatty infiltration. Multilevel spurrin g in thoracic spine is seen. IMPRESSION: Suboptimal study without central saddle pulmonary embolism. Cannot exclude smaller segmen jessika and subsegmental PE on this study. More prominent cardiomegaly. New tiny bilateral pleural effusi ons. Scattered areas of atelectasis and/or consolidation bilaterally new from prior. New bilateral hi lar adenopathy. Possible acute infectious process on background CHF exacerbation, correlate clinicall y.
[2021-01-17] MEDS ORDERED: FUROSEMIDE 10 MG/ML 4 ML VIAL IV STA (14:33)
[2021-01-17] MEDS ORDERED: NITROGLYCERIN SL TABS 0.4 MG TAB SUBLINGUAL PRN (14:44)
[2021-01-17] MEDS ORDERED: hydrOXYzine HCL 25 MG TAB PO PRN (14:44)
[2021-01-17] MEDS ORDERED: SODIUM CHLORIDE 0.9% 1,000 ML with MVI, ADULT NO.4 WITH VIT K 10 ML, THIAMINE 100 MG, F... IV ONE ×4 (15:00)
[2021-01-17] MEDS: IPRATROPIUM-ALBUTEROL 3 ML NEB INHALATION SCH ×2 (16:10→19:41)
[2021-01-17] MEDS: IPRATROPIUM 0.5 MG/2.5 ML NEBU INHALATION SCH ×2 (16:10→19:38)
[2021-01-17] MEDS ORDERED: LACTULOSE 200 GM/300 ML (FROM 1/2 GAL JUG) RECTAL ONE (17:00)
[2021-01-17] MEDS: PREGABALIN 100 MG CAP PO SCH ×2 (19:39→22:41)
[2021-01-17] MEDS: FLUTICASONE 220 MCG INHALER INHALATION SCH (19:41)
[2021-01-17] MEDS: methylPREDNISolone SOD SUCCI 125 MG/2 ML VIAL IV SCH (19:47)
[2021-01-17] MEDS: metFORMIN 500 MG TAB PO SCH (19:48)
[2021-01-17] MEDS: SODIUM CHLORIDE 0.9% 1,000 ML IV SCH ×2 (19:54→20:44)
[2021-01-17] MEDS: MONTELUKAST 10 MG TAB PO SCH (19:54)
[2021-01-17 20:05] LABS: ABG Base Excess 12.6 mmol/L; ABG Oxygen Saturation 71.6 % (94-97); ABG PH 7.26 (7.35-7.45); ABG TCO2 42 mmol/L (19-24); Allen Test Performed? Yes
[2021-01-17] MEDS: FUROSEMIDE 10 MG/ML 4 ML VIAL IV SCH (20:15)
[2021-01-17 20:18] LABS: ABG HCO3 40 mmol/L (21-25); ABG PCO2 88 mmHg (35-45); ABG PO2 35 mmHg (83-108)
[2021-01-17] MEDS ORDERED: FUROSEMIDE 40 MG TAB PO SCH (21:00)
[2021-01-17] MEDS ORDERED: POTASSIUM CHLORIDE ER 20 MEQ TAB.ER PO SCH (21:00)
[2021-01-17] MEDS ORDERED: ROCURONIUM 10 MG/ML (5 ML VIAL) IV STA (21:15)
--- NOTE | 2021-01-17 21:21 | XR ---
EXAMINATION TYPE: XR chest 1V portable DATE OF EXAM: 01/17/2021 CLINICAL HISTORY: confirm placement . Endotracheal tube and orogastric tube. TECHNIQUE: Portable supine frontal view of the chest. COMPARISON: 01/17/2021 at 10:45 AM FINDINGS: Endotracheal tube distal tip is 2.6 cm from the chandler. Enteric tube courses over the uppe r abdomen with nonvisualization of the distal tip or side port. There are diffuse airspace opacities, with increased opacification of the right hemithorax versus the left. Right pleural effusion. IMPRESSION: 1. Endotracheal tube distal tip 2.6 cm from the chandler. 2. Enteric tube distally over the upper abdomen with nonvisualization of the distal tip or side port. 3. Increased opacification of the right hemithorax versus comparison at 10:45 AM. Findings may be due to patient positioning/technique, although worsening aeration or atelectasis of the right lung is in cluded in differential.
[2021-01-17] MEDS: METOPROLOL TARTRATE 25 MG TAB PO SCH (21:38)
[2021-01-17] MEDS: PHENYTOIN SODIUM EXTENDED 100 MG CAP PO SCH (21:39)
[2021-01-17] MEDS: LACTULOSE 20 GM/30 ML CUP PO SCH (22:46)
[2021-01-18 00:23] LABS: Glucose,Whole Blood 125 mg/dL (75-99)
[2021-01-18] MEDS: FUROSEMIDE 10 MG/ML 4 ML VIAL IV SCH (00:40)
[2021-01-18] MEDS: methylPREDNISolone SOD SUCCI 125 MG/2 ML VIAL IV SCH ×5 (00:41→23:37)
[2021-01-18 00:49] LABS: Allen Test Performed? Yes
[2021-01-18] MEDS: IPRATROPIUM-ALBUTEROL 3 ML NEB INHALATION SCH ×7 (01:05→23:17)
[2021-01-18 01:18] LABS: ABG Base Excess 14.2 mmol/L; ABG Oxygen Saturation 92.5 % (94-97); ABG PCO2 69 mmHg (35-45); ABG PH 7.37 (7.35-7.45); ABG TCO2 42 mmol/L (19-24)
[2021-01-18 01:21] LABS: ABG HCO3 40 mmol/L (21-25); ABG PO2 59 mmHg (83-108)
[2021-01-18 04:58] LABS: Basophils % (A) 0 %; Eosinophils % (A) 0 %; HCT 45.4 % (39.0-53.0); HGB 14.6 gm/dL (13.0-17.5); Hypochromasia Moderate; Lymphocytes # (A) 0.7 k/uL (1.0-4.8); Lymphocytes % (A) 8 %; MCHC 32.1 g/dL (31.0-37.0); MCV 105.9 fL (80.0-100.0); Macrocytosis Moderate; Mean Platelet Volume 8.3; Monocytes # (A) 0.5 k/uL (0-1.0); Monocytes % (A) 6 %; Neutrophils % (A) 85 %; Platelet Count 173 k/uL (150-450); Poikilocytosis Slight; RBC 4.29 m/uL (4.30-5.90); RDW 15.9 % (11.5-15.5); WBC 8.3 k/uL (3.8-10.6)
[2021-01-18 05:03] LABS: ABG Base Excess 14.6 mmol/L; ABG HCO3 39 mmol/L (21-25); ABG Oxygen Saturation 97.9 % (94-97); ABG PCO2 59 mmHg (35-45); ABG PH 7.43 (7.35-7.45); ABG PO2 87 mmHg (83-108); ABG TCO2 41 mmol/L (19-24); Allen Test Performed? Yes
[2021-01-18 05:03] LABS: ALT 14 U/L (4-49); AST 21 U/L (17-59); African American GFR (CKD) >90 (>60 ml/min/1.73 sqM); Albumin 3.3 g/dL (3.5-5.0); Alkaline Phosphatase 185 U/L (38-126); Anion Gap 5 mmol/L; Blood Urea Nitrogen 14 mg/dL (9-20); C Reactive Protein 5.9 mg/dL (<1.0); Calcium 8.4 mg/dL (8.4-10.2); Carbon Dioxide 36 mmol/L (22-30); Chloride 104 mmol/L (98-107); Creatine Kinase 34 U/L (55-170); Glucose 127 mg/dL (74-99); Non-African American GFR(CKD) >90 (>60 ml/min/1.73 sqM); Potassium 4.3 mmol/L (3.5-5.1); Sodium 145 mmol/L (137-145); Total Bilirubin 0.6 mg/dL (0.2-1.3); Total Protein 5.6 g/dL (6.3-8.2)
[2021-01-18] MEDS ORDERED: VANCOMYCIN IV PER PHARMACY 1 EACH MISC MISCELLANE PRN (08:18)
[2021-01-18] MEDS ORDERED: IPRATROPIUM-ALBUTEROL 3 ML NEB INHALATION PRN (08:18)
--- NOTE | 2021-01-18 08:27 | XR ---
EXAMINATION TYPE: XR chest 1V portable DATE OF EXAM: 01/18/2021 COMPARISON: Chest x-ray and chest CT 01/17/2021 HISTORY: Abnormal chest x-ray, rhonchi, intubated TECHNIQUE: Single frontal view of the chest is obtained. FINDINGS: Endotracheal tube and orogastric tube are overlying appropriate positions. Patient is rota analilia. No evident pneumothorax. Cardiomediastinal silhouette is obscured. There is some improvement in aeration as compared to prior exam. There is blunting of the costophrenic angles. Hemidiaphragms are partially obscured. Persistent bilateral patchy density present at the lung bases. IMPRESSION: There is some improvement in aeration. There is cardiomegaly. There may be pleural thick ening, difficult to exclude minimal effusion, pneumonia.
[2021-01-18] MEDS: FLUTICASONE 220 MCG INHALER INHALATION SCH (08:53)
[2021-01-18] MEDS: IPRATROPIUM 0.5 MG/2.5 ML NEBU INHALATION SCH (08:53)
[2021-01-18] MEDS ORDERED: LEVOFLOXACIN 500 MG TAB PO SCH (09:00)
[2021-01-18] MEDS ORDERED: ERGOCALCIFEROL 1,250 MCG (50,000 IU) CAPSULE PO SCH (09:00)
[2021-01-18] MEDS: metFORMIN 500 MG TAB PO SCH ×2 (09:11→17:03)
[2021-01-18] MEDS: CHOLESTYRAMINE (WITH SUGAR) 4 GM PACKET PO SCH (09:12)
[2021-01-18] MEDS: THEOPHYLLINE 24 HOUR 400 MG CAP.ER.24H PO SCH (09:13)
[2021-01-18] MEDS: METOPROLOL TARTRATE 25 MG TAB PO SCH ×2 (09:57→21:43)
[2021-01-18] MEDS: LORATADINE 10 MG TAB PO SCH (09:57)
[2021-01-18] MEDS: LACTULOSE 20 GM/30 ML CUP PO SCH ×3 (09:57→21:43)
[2021-01-18] MEDS: POTASSIUM CHLORIDE ER 20 MEQ TAB.ER PO SCH (09:57)
[2021-01-18] MEDS: FAMOTIDINE 20 MG TAB PO SCH (09:58)
[2021-01-18] MEDS: ATORVASTATIN 20 MG TAB PO SCH (09:58)
[2021-01-18] MEDS: PARoxetine 20 MG TAB PO SCH (09:58)
[2021-01-18] MEDS: allopurinoL 100 MG TAB PO SCH (09:58)
[2021-01-18] MEDS: MAGNESIUM OXIDE 400 MG TAB PO SCH (09:58)
[2021-01-18] MEDS: PREGABALIN 100 MG CAP PO SCH ×3 (09:58→21:43)
[2021-01-18] MEDS: CLOPIDOGREL 75 MG TAB PO SCH (09:58)
[2021-01-18] MEDS: ASPIRIN 325 MG TAB PO SCH (09:58)
[2021-01-18] MEDS: ISOSORBIDE MONONITRATE ER 30 MG TAB.ER.24H PO SCH (09:58)
[2021-01-18] MEDS: MULTIVITAMINS, THERA 1 EACH TAB PO SCH (09:58)
[2021-01-18] MEDS: PHENYTOIN SODIUM EXTENDED 100 MG CAP PO SCH ×2 (09:59→21:43)
[2021-01-18] MEDS ORDERED: LIDOCAINE 1% INJ 10MG/ML (20 ML MDV) SQ ONE (10:16)
[2021-01-18 11:18] LABS: Glucose,Whole Blood 130 mg/dL (75-99)
--- NOTE | 2021-01-18 11:27 | P.HPIM ---
History of Present Illness H&P Date: 01/17/21 Chief Complaint: Worsening shortness of breath This is 60-year-old gentleman follows with Dr. Teran in the office with past medical history of CAD-myocardial infarction, cardiac stents, seizure disorder, CVA with residual left arm weakness SLE, COPD on 3 L home O2, nicotine dependence-2 packs per day, brought to the ER via EMS with complaints of altered mental status, worsening shortness of breath. Significant other states patient had gone to bed at 11 PM the night prior with normal mental status and was unable to arouse him the next morning and called EMS. Patient was arousable, lethargic as [facility] Denies trauma, denies seizure activity denies nausea vomiting or diarrhea. Denies abdominal pain. Denies chest pain, palpitations. Significant other further reports patient had been falling multiple times yesterday, called EMS but patient refused. On admission afebrile, normal WBC, hypertensive with systolic blood pressures in the 180s, heart rate stable, respiratory rate 16-20, requiring a nonrebreather to maintain O2 sats of 94-97%. Oxygen and has since been weaned down to high flow 8 L nasal cannula, maintaining O2 sats in the low 90s. Hemoglobin 16.9, platelets 210, MCV 107. D-dimer 0.79. Sodium 147, potassium 5.2, CO2 38, BUN 14, creatinine 0.83, blood sugars controlled, magnesium 2.5, lactic acid 0.6, T bili and LFTs within normal limits with the exception of alk phos mildly elevated 204. Ammonia 95, creatinine kinase 48, troponin negative 1, CRP 6.2 BNP 3490. UA negative. Toxicology detected barbiturates, phenytoin level subtherapeutic at 3.9, serum alcohol less than 10. Coronavirus, influenza A/B not detected. Head/C-spine CT reported no acute fracture, dislocation of the C-spine with no acute intracranial hemorrhage or midline shift. Chest x-ray reported cardiomegaly, diminished inspiration, elevated left hemidiaphragm, persistent right mid and lower lung opacity is, possibly acute infiltrates with new left upper lung acute infiltrate. Chest CT suboptimal ,reported no large central PE, moderate to severe 3 vessel CAD, new tiny bilateral pleural effusions, scattered atelectasis and/or consolidation bilaterally new from prior, new bilateral hilar adenopathy, new prominent bilateral hilar lymph nodes, prominent subcarinal 2.5 x 1.1 cm lymph node, fatty liver EKG reported sinus rhythm with occasional PVC, possible left atrial enlargement .received IV fluids including Banana bag, Levaquin, IV steroids, nebulized bronchodilators and a dose of Lasix IV push in the ER. Review of Systems Review of Systems ROS Statement: Those systems with pertinent positive or pertinent negative responses have been documented in the HPI. ROS Other: All systems not noted in ROS Statement are negative. Past Medical History Past Medical History: Asthma, Coronary Artery Disease (CAD), Chest Pain / Angina, Heart Failure, COPD, CVA/TIA, GERD/Reflux, Hyperlipidemia, Hypertension, Myocardial Infarction ([place]), Osteoarthritis (OA), Pneumonia, Renal Disease, Seizure Disorder, Sleep Apnea/CPAP/BIPAP Additional Past Medical History / Comment(s): last seizure - 2014, hiatal hernia, chronic back pain, 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, lupus, continuous oxygen use at 3L, no cpap used, kidney failure with hemodilaysis in the past, 3 AZ's, hypoglycemia Last Myocardial Infarction Date:: 2015 History of Any Multi-Drug Resistant Organisms: None Reported Past Surgical History: Cholecystectomy, Heart Catheterization, Heart Catheterization With Stent, Tonsillectomy Additional Past Surgical History / Comment(s): STATES 3 cardiac stents, Past Anesthesia/Blood Transfusion Reactions: No Reported Reaction Additional Past Anesthesia/Blood Transfusion Reaction / Comment(s): blood transfusion-no reaction, unknown family hx per spouse Date of Last Stent Placement:: 2015 Past Psychological History: Anxiety, Depression Smoking Status: Current some day smoker Past Alcohol Use History: None Reported Past Drug Use History: None Reported - Past Family History Father Family Medical History: Myocardial Infarction ([place]) Mother Family Medical History: Asthma, Cancer, COPD Medications and Allergies Home Medications Medication Instructions Recorded Confirmed Type Metoprolol Tartrate [Lopressor] 25 mg PO BID #60 tab 09/18/15 01/17/21 Rx Loratadine [Claritin] 10 mg PO DAILY 05/21/16 01/17/21 History PARoxetine [Paxil] 20 mg PO DAILY 05/21/16 01/17/21 History Phenytoin Sodium Extended 200 mg PO BID 05/21/16 01/17/21 History [Dilantin] Clopidogrel Bisulfate [Clopidogrel] 75 mg PO DAILY 05/22/16 01/17/21 History Magnesium Oxide [Mag-Ox] 400 mg PO DAILY #30 tablet 07/11/16 01/17/21 Rx rOPINIRole HCL [Requip] 1 mg PO BID 08/30/16 01/17/21 History Mycophenolate Mofetil [Cellcept] 1,000 mg PO DAILY 10/03/17 01/17/21 History Theophylline Anhydrous 400 mg PO DAILY 10/03/17 01/17/21 History [Theophylline] Ergocalciferol (Vitamin D2) 50,000 unit PO Q14D 02/04/18 01/17/21 History [Vitamin D2] Montelukast [Singulair] 10 mg PO DAILY@1500 02/04/18 01/17/21 History Nitroglycerin Sl Tabs [Nitrostat] 0.4 mg SUBLINGUAL Q5M PRN 02/04/18 01/17/21 History Potassium Chloride [Klor-Con 20] 20 meq PO Q48H 02/04/18 01/17/21 History Potassium Chloride [Klor-Con 20] 40 meq PO QAM 02/04/18 01/17/21 History allopurinoL [Zyloprim] 100 mg PO DAILY 02/04/18 01/17/21 History Isosorbide Mononitrate ER [Imdur] 30 mg PO DAILY #30 tab 02/05/18 01/17/21 Rx Furosemide [Lasix] 80 mg PO BID 08/05/19 01/17/21 History hydrOXYzine HCL [Atarax] 25 mg PO Q8H PRN 08/05/19 01/17/21 History mycophenolate mofetiL [Cellcept] 500 mg PO HS 08/05/19 01/17/21 History Aspirin 325 mg PO DAILY 05/12/20 01/17/21 History Famotidine 20 mg PO DAILY 05/12/20 01/17/21 History HYDROcodone/APAP 7.5-325MG [[place] 1 tab PO Q6H PRN 05/12/20 01/17/21 History 7.5-325] Multivitamins, Thera [Multivitamin 1 tab PO DAILY 05/12/20 01/17/21 History (formulary)] modafiniL [Provigil] 200 mg PO DAILY 05/12/20 01/17/21 History Albuterol Sulfate [Proair Hfa] 2 puff INHALATION RT-Q6H PRN 11/15/20 01/17/21 History Atorvastatin [Lipitor] 20 mg PO DAILY 11/15/20 01/17/21 History Fluticasone Propionate [Flovent 2 puff INHALATION RT-BID 11/15/20 01/17/21 History Hfa 220 mcg] Tiotropium [place] [Spiriva] 1 cap INHALATION RT-DAILY 11/15/20 01/17/21 History metFORMIN HCL [metFORMIN HCL ER] 1,500 mg PO W/SUPPER 11/15/20 01/17/21 History Cholestyramine (with Sugar) 4 gm PO DAILY 12/13/20 01/17/21 History [Cholestyramine Packet] Pregabalin [Lyrica] 200 mg PO TID 12/13/20 01/17/21 History Allergies Allergy/AdvReac Type Severity Reaction Status Date / Time Penicillins Allergy Severe Swelling Verified 01/17/21 10:23 Iodinated Contrast Media Allergy Swelling Verified 01/17/21 10:23 [Iodinated Contrast- Oral and IV Dye] iodine Allergy Itching, Verified 01/17/21 10:23 Hives phenobarbital AdvReac Drowsiness Verified 01/17/21 10:23 Physical Exam Vitals: Vital Signs Temp Pulse Resp BP Pulse Ox 01/17/21 16:26 75 01/17/21 16:15 72 01/17/21 14:46 97.9 F 74 18 126/79 96 01/17/21 13:00 75 20 140/73 92 L 01/17/21 12:46 76 20 140/73 91 L 01/17/21 12:38 71 01/17/21 12:30 75 01/17/21 12:26 93 L 01/17/21 12:00 73 20 172/90 94 L 01/17/21 11:17 75 18 162/100 97 01/17/21 10:26 16 01/17/21 10:15 97.6 F 74 16 186/96 97 Intake and Output 01/17/21 01/17/21 01/17/21 06:59 14:59 22:59 Other: Weight 113.398 kg General: Obese, alert and oriented times 2, sitting up at side of bed, respiratory effort increased, HEENT: [PERRL. EOMI. No pharyngeal erythema or exudate. Facial edema Neck: [Supple, unable to assess JVD, short neck Cardiac: [Heart regular in rate and rhythm. No S3. No S4. No clicks, rubs. No murmur.] Lungs: Minimal air exchange, bilateral bases diminished.scattered rhonchi ,Fine expiratory wheezing Abdomen: [Soft , distended, nontender ,No mass. No organomegaly. Bowel sounds presnt. Extremities: [Trace edema no cyanosis no claudication normal pulses] Skin: [Warm and dry, No rash.] Neurologic: [No lateralizing deficits. CN II - XII grossly intact; chronic residual left arm weakness.] Lymphatic: [No adenopathy.] Results CBC & Chem 7: 01/18/21 04:20 01/18/21 04:20 Labs: Abnormal Lab Results - Last 24 Hours (Table) 01/17/21 01/17/21 01/17/21 Range/Units 10:23 10:31 10:31 Hct 54.1 H (39.0-53.0) % MCV 107.0 H D (80.0-100.0) fL RDW 15.9 H (11.5-15.5) % Monocytes # (Manual) 1.19 H (0-1.0) k/uL Metamyelocytes # (Man) 0.10 H (0) k/uL Myelocytes # (Manual) 0.10 H (0) k/uL Nucleated RBCs 1 H (0-0) /100 WBC Macrocytosis Marked A D-Dimer 0.79 H (<0.60) mg/L FEU VBG pH (7.31-7.41) VBG pCO2 (37-51) mmHg VBG HCO3 (24-28) mmol/L Sodium (137-145) mmol/L Potassium (3.5-5.1) mmol/L Carbon Dioxide (22-30) mmol/L Glucose (74-99) mg/dL POC Glucose (mg/dL) 125 H (75-99) mg/dL Osmolality (280-301) mosm/kg Plasma Lactic Acid Otto (0.7-2.0) mmol/L Magnesium (1.6-2.3) mg/dL Alkaline Phosphatase (38-126) U/L Ammonia (<30) umol/L Creatine Kinase (55-170) U/L C-Reactive Protein (<1.0) mg/dL Urine Protein (Negative) Urine Bacteria (None) /hpf Urine Mucus (None) /hpf Ur Barbiturates Screen (NotDetected) 01/17/21 01/17/21 01/17/21 Range/Units 10:32 10:58 11:29 Hct (39.0-53.0) % MCV (80.0-100.0) fL RDW (11.5-15.5) % Monocytes # (Manual) (0-1.0) k/uL Metamyelocytes # (Man) (0) k/uL Myelocytes # (Manual) (0) k/uL Nucleated RBCs (0-0) /100 WBC Macrocytosis D-Dimer (<0.60) mg/L FEU VBG pH 7.12 L* (7.31-7.41) VBG pCO2 119 H* (37-51) mmHg VBG HCO3 37 H (24-28) mmol/L Sodium (137-145) mmol/L Potassium (3.5-5.1) mmol/L Carbon Dioxide (22-30) mmol/L Glucose (74-99) mg/dL POC Glucose (mg/dL) (75-99) mg/dL Osmolality (280-301) mosm/kg Plasma Lactic Acid Otto 0.6 L (0.7-2.0) mmol/L Magnesium (1.6-2.3) mg/dL Alkaline Phosphatase (38-126) U/L Ammonia 95 H (<30) umol/L Creatine Kinase (55-170) U/L C-Reactive Protein (<1.0) mg/dL Urine Protein 1+ H (Negative) Urine Bacteria Rare H (None) /hpf Urine Mucus Rare H (None) /hpf Ur Barbiturates Screen Detected H (NotDetected) 01/17/21 Range/Units 11:29 Hct (39.0-53.0) % MCV (80.0-100.0) fL RDW (11.5-15.5) % Monocytes # (Manual) (0-1.0) k/uL Metamyelocytes # (Man) (0) k/uL Myelocytes # (Manual) (0) k/uL Nucleated RBCs (0-0) /100 WBC Macrocytosis D-Dimer (<0.60) mg/L FEU VBG pH (7.31-7.41) VBG pCO2 (37-51) mmHg VBG HCO3 (24-28) mmol/L Sodium 147 H (137-145) mmol/L Potassium 5.2 H (3.5-5.1) mmol/L Carbon Dioxide 38 H (22-30) mmol/L Glucose 134 H (74-99) mg/dL POC Glucose (mg/dL) (75-99) mg/dL Osmolality 315 H (280-301) mosm/kg Plasma Lactic Acid Otto (0.7-2.0) mmol/L Magnesium 2.5 H (1.6-2.3) mg/dL Alkaline Phosphatase 204 H (38-126) U/L Ammonia (<30) umol/L Creatine Kinase 48 L (55-170) U/L C-Reactive Protein 6.2 H (<1.0) mg/dL Urine Protein (Negative) Urine Bacteria (None) /hpf Urine Mucus (None) /hpf Ur Barbiturates Screen (NotDetected) Assessment and Plan Assessment: Acute on chronic hypoxic, hypercapnic respiratory failure, secondary to acute bilateral pneumonia, possibly aspiration, possible community acquired,wears 3 L nasal cannula O2 at home, requiring nonrebreather on admission, currently on high flow nasal cannula. New prominent bilateral hilar lymph nodes, prominent subcarinal 2.5 x 1.1 cm lymph node Acute metabolic encephalopathy secondary to the above Hepatic encephalopathy, ammonia 95, fatty liver on CTA, denies alcohol abuse Chronic interstitial lung disease Ongoing Nicotine dependence Recurrent falls, denies alcohol use Seizure disorder, Dilantin level subtherapeutic on admission Gastroesophageal reflux disease Chronic renal failure, stage I Anemia of chronic disease History of CVA with residual left arm weakness Hypertension Chronic Systolic CHF, Ischemic heart disease CAD, history of [place] cardiac stent Obstructive sleep apnea Morbid Obesity, BMI 33.8 Hospital course: Continue on current medication regime ,monitoring and symptomatic treatment. ABGs, lactulose, sputum culture ordered. Aggressive pulmonary toileting, nebulized bronchodilators, steroids, antibiotics. Cautious IV fluid hydration in a patient with history of CHF. Pulmonary and neurology consults in place, recommendations pending. Prognosis guarded in a patient with multiple complex medical issues. The impression and plan of care has been dictated as directed. : I performed a history and examination of this patient, discussed the same with the dictator. I agree with the dictator's note ,documented as a scribe. Any additional findings or plans will be noted.
[2021-01-18] MEDS: VANCOMYCIN 1,750 MG in SODIUM CHLORIDE 0.9% 500 ML 500 ML IVPB SCH ×2 (11:58→18:10)
--- NOTE | 2021-01-18 12:43 | P.CNPUL ---
History of Present Illness Consult date: 01/18/21 Requesting physician: Gerson Gallardo Reason for consult: dyspnea, hypoxemia, abnormal CXR/CT Chief complaint: Dyspnea, hypoxia History of present illness: 60-year-old white male patient with past medical history of COPD, chronic and ongoing history of tobacco dependence, coronary artery disease, previous history of myocardial infarction, previous placement of cardiac stents, seizure disorder, history of CVA with residual left arm weakness, chronic hypoxic respiratory failure and patient usually wears 3 L of oxygen at home who came into the emergency department on 01/17/2021 for evaluation of altered mental status, and worsening shortness of breath. Patient was quite lethargic and his could not arouse him in the morning and called EMS. Patient did become arousable but lethargic as EMS transferring him to the ER. His chest x-ray showed cardiomegaly and chronic changes with diminished inspiration and elevated left hemidiaphragm, and persistent right mid and lower lung opacities the clinic reflect residual acute infiltrates. He tested negative for COVID 19. CT of the brain and cervical spine showed no acute intracranial hemorrhage or midline shift, and no acute fracture or dislocation of the cervical spine. His admission blood work showed no evidence of leukocytosis, he is 1.0, was 9.9, hemoglobin was 16.9, hematocrit was elevated at 54.1, d-dimer was mildly elevated at 0.79 and CTA chest was completed showing no evidence of central saddle pulmonary embolism, however this was a suboptimal study, and smaller segmental subsegmental PEs could not be excluded, there was prominent cardiomegaly, and new tiny bilateral pleural effusions and scattered areas of atelectasis and/or consolidation bilaterally. There was new bilateral hilar adenopathy, and possible acute infectious process and CHF. Patient was initially placed on high flow nasal cannula, he was started on breathing treatments, diuretics, steroids, and antibiotics, as a day when he continued to be short of breath, and eventually was intubated and placed on mechanical ventilator and transferred to the intensive care unit, this morning he remains intubated and sedated, currently on assist control mode of ventilation with a rate of 24, multivitamins 450, FiO2 100%, and PEEP of 14, this was blood gases show pO2 of 87, pCO2 of 59, and pH of 7.43. He is currently on 0.9 normal saline at KVO, and improving and is currently at 30 weeks per kilo per minute, he is in sinus mechanism, he is not requiring any vasopressor support, current antibiotic coverage is Levaquin, patient's microbiology results from previous admissions has been reviewed and there is evidence of Enterobacter and Klebsiella pneumonia in his sputum cultures from previous admissions. Today's lab work has been reviewed showing white blood count 8.3, hemoglobin of 14.6, platelet count of 173, CO2 of 36, the rest of the electrolytes and renal profile were unremarkable, alkaline phosphatase is 185, otherwise AST and OT were within normal limits. Review of Systems All systems: negative Constitutional: Reports lethargy, Reports weakness, Denies chills, Denies fever Eyes: denies blurred vision, denies pain Ears, nose, mouth and throat: Denies headache, Denies sore throat Cardiovascular: Denies chest pain, Denies shortness of breath Respiratory: Reports dyspnea, Denies cough Gastrointestinal: Denies abdominal pain, Denies diarrhea, Denies nausea, Denies vomiting Musculoskeletal: Denies myalgias Integumentary: Denies pruritus, Denies rash Neurological: Denies numbness, Denies weakness Psychiatric: Denies anxiety, Denies depression Endocrine: Denies fatigue, Denies weight change Past Medical History Past Medical History: Asthma, Coronary Artery Disease (CAD), Chest Pain / Angina, Heart Failure, COPD, CVA/TIA, GERD/Reflux, Hyperlipidemia, Hypertension, Myocardial Infarction (PR), Osteoarthritis (OA), Pneumonia, Renal Disease, Seizure Disorder, Sleep Apnea/CPAP/BIPAP Additional Past Medical History / Comment(s): last seizure - 2014, hiatal hernia, chronic back pain, 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, lupus, continuous oxygen use at 3L, no cpap used, kidney failure with hemodilaysis in the past, 3 PR's, hypoglycemia Last Myocardial Infarction Date:: 2016 History of Any Multi-Drug Resistant Organisms: None Reported Past Surgical History: Cholecystectomy, Heart Catheterization, Heart Catheterization With Stent, Tonsillectomy Additional Past Surgical History / Comment(s): STATES 3 cardiac stents, Past Anesthesia/Blood Transfusion Reactions: No Reported Reaction Additional Past Anesthesia/Blood Transfusion Reaction / Comment(s): blood transfusion-no reaction, unknown family hx per spouse Date of Last Stent Placement:: 2016 Past Psychological History: Anxiety, Depression Smoking Status: Current some day smoker Past Alcohol Use History: None Reported Past Drug Use History: None Reported - Past Family History Father Family Medical History: Myocardial Infarction (PR) Mother Family Medical History: Asthma, Cancer, COPD Medications and Allergies Home Medications Medication Instructions Recorded Confirmed Type Metoprolol Tartrate [Lopressor] 25 mg PO BID #60 tab 09/18/15 01/17/21 Rx Loratadine [Claritin] 10 mg PO DAILY 05/21/16 01/17/21 History PARoxetine [Paxil] 20 mg PO DAILY 05/21/16 01/17/21 History Phenytoin Sodium Extended 200 mg PO BID 05/21/16 01/17/21 History [Dilantin] Clopidogrel Bisulfate [Clopidogrel] 75 mg PO DAILY 05/22/16 01/17/21 History Magnesium Oxide [Mag-Ox] 400 mg PO DAILY #30 tablet 07/11/16 01/17/21 Rx rOPINIRole HCL [Requip] 1 mg PO BID 08/30/16 01/17/21 History Mycophenolate Mofetil [Cellcept] 1,000 mg PO DAILY 10/03/17 01/17/21 History Theophylline Anhydrous 400 mg PO DAILY 10/03/17 01/17/21 History [Theophylline] Ergocalciferol (Vitamin D2) 50,000 unit PO Q14D 02/04/18 01/17/21 History [Vitamin D2] Montelukast [Singulair] 10 mg PO DAILY@1500 02/04/18 01/17/21 History Nitroglycerin Sl Tabs [Nitrostat] 0.4 mg SUBLINGUAL Q5M PRN 02/04/18 01/17/21 History Potassium Chloride [Klor-Con 20] 20 meq PO Q48H 02/04/18 01/17/21 History Potassium Chloride [Klor-Con 20] 40 meq PO QAM 02/04/18 01/17/21 History allopurinoL [Zyloprim] 100 mg PO DAILY 02/04/18 01/17/21 History Isosorbide Mononitrate ER [Imdur] 30 mg PO DAILY #30 tab 02/05/18 01/17/21 Rx Furosemide [Lasix] 80 mg PO BID 08/05/19 01/17/21 History hydrOXYzine HCL [Atarax] 25 mg PO Q8H PRN 08/05/19 01/17/21 History mycophenolate mofetiL [Cellcept] 500 mg PO HS 08/05/19 01/17/21 History Aspirin 325 mg PO DAILY 05/12/20 01/17/21 History Famotidine 20 mg PO DAILY 05/12/20 01/17/21 History HYDROcodone/APAP 7.5-325MG [Marana 1 tab PO Q6H PRN 05/12/20 01/17/21 History 7.5-325] Multivitamins, Thera [Multivitamin 1 tab PO DAILY 05/12/20 01/17/21 History (formulary)] modafiniL [Provigil] 200 mg PO DAILY 05/12/20 01/17/21 History Albuterol Sulfate [Proair Hfa] 2 puff INHALATION RT-Q6H PRN 11/15/20 01/17/21 History Atorvastatin [Lipitor] 20 mg PO DAILY 11/15/20 01/17/21 History Fluticasone Propionate [Flovent 2 puff INHALATION RT-BID 11/15/20 01/17/21 History Hfa 220 mcg] Tiotropium [place] [Spiriva] 1 cap INHALATION RT-DAILY 11/15/20 01/17/21 History metFORMIN HCL [metFORMIN HCL ER] 1,500 mg PO W/SUPPER 11/15/20 01/17/21 History Cholestyramine (with Sugar) 4 gm PO DAILY 12/13/20 01/17/21 History [Cholestyramine Packet] Pregabalin [Lyrica] 200 mg PO TID 12/13/20 01/17/21 History Allergies Allergy/AdvReac Type Severity Reaction Status Date / Time Penicillins Allergy Severe Swelling Verified 01/17/21 10:23 Iodinated Contrast Media Allergy Swelling Verified 01/17/21 10:23 [Iodinated Contrast- Oral and IV Dye] iodine Allergy Itching, Verified 01/17/21 10:23 Hives phenobarbital AdvReac Drowsiness Verified 01/17/21 10:23 Physical Exam Vitals: Vital Signs Temp Pulse Pulse Resp BP BP Pulse Ox 01/18/21 12:13 72 01/18/21 10:00 80 22 136/83 93 L 01/18/21 09:00 73 22 130/81 95 01/18/21 08:50 75 01/18/21 08:39 73 01/18/21 08:00 75 24 126/80 96 01/18/21 07:00 74 24 126/76 96 01/18/21 06:00 73 24 133/77 97 01/18/21 05:00 73 24 121/75 98 01/18/21 04:00 98.7 F 71 24 114/70 94 L 01/18/21 03:00 71 24 101/65 91 L 01/18/21 02:00 99.9 F H 76 71 24 102/58 101/65 91 L 01/18/21 01:00 99.7 F H 72 81 24 101/57 102/58 93 L 01/17/21 23:45 72 18 101/64 91 L 01/17/21 23:00 72 20 94/55 01/17/21 22:00 79 20 100/56 89 L 01/17/21 21:30 82 20 109/64 89 L 01/17/21 21:00 82 20 105/64 89 L 01/17/21 19:42 86 01/17/21 18:56 82 18 128/84 90 L 01/17/21 18:48 80 18 128/84 90 L 01/17/21 18:22 22 01/17/21 18:00 86 L 01/17/21 16:26 75 01/17/21 16:15 72 01/17/21 14:46 97.9 F 74 18 126/79 96 01/17/21 13:00 75 20 140/73 92 L 01/17/21 12:46 76 20 140/73 91 L 01/17/21 12:38 71 01/17/21 12:30 75 01/17/21 12:26 93 L Intake and Output 01/17/21 01/18/21 01/18/21 22:59 06:59 14:59 Intake Total 36.287 658.928 100 Output Total 1775 125 Balance 36.287 -1116.072 -25 Intake: IV 420 100 Sodium Chloride 0.9% 1, 300 000 ml @ 100 mls/hr IV . Q10H7M ONE with Mvi, Adult No.4 with Vit K 10 ml with Thiamine 100 mg with Folic Acid 1 mg Rx#: [id number] Sodium Chloride 0.9% 1, 120 100 000 ml @ 20 mls/hr IV . Q24H [facility] Rx#:[id number] Intake, IV Titration 36.287 238.928 Amount propofoL 1,000 mg In 36.287 238.928 Empty Bag 1 bag @ Titrate IV .Q0M [facility] Rx#: [id number] Output: Gastric Drainage 390 Urine 385 125 Stool 1000 Other: Voiding Method Indwelling Catheter Indwelling Catheter Weight 107 kg GENERAL EXAM: 60-year-old white male, sedated, intubated on assist control mode of ventilation with FiO2 100% and PEEP of 14 comfortable in no apparent distress. HEAD: Normocephalic/atraumatic. EYES: Normal reaction of pupils, equal size. Conjunctiva pink, sclera white. NOSE: Clear with pink turbinates. THROAT: No erythema or exudates. NECK: No masses, no JVD, no thyroid enlargement, no adenopathy. CHEST: No chest wall deformity. Symmetrical expansion. LUNGS: Equal air entry with no crackles, wheeze, rhonchi or dullness. CVS: Regular rate and rhythm, normal S1 and S2, no gallops, no murmurs, no rubs ABDOMEN: Soft, nontender. No hepatosplenomegaly, normal bowel sounds, no guarding or rigidity. EXTREMITIES: No clubbing, no edema, no cyanosis, 2+ pulses and upper and lower extremities. MUSCULOSKELETAL: Muscle strength and tone normal. SPINE: No scoliosis or deformity SKIN: No rashes CENTRAL NERVOUS SYSTEM: Sedated, intubated No focal deficits, tone is normal in all 4 extremities. Results - Laboratory Findings CBC and BMP: 01/18/21 04:20 01/18/21 04:20 ABG ABG pH 7.43 (7.35-7.45) 01/18/21 04:52 ABG pCO2 59 mmHg (35-45) H 01/18/21 04:52 ABG pO2 87 mmHg (83-108) 01/18/21 04:52 ABG O2 Saturation 97.9 % (94-97) H 01/18/21 04:52 PT/INR, D-dimer PT 10.4 sec (9.0-12.0) 01/17/21 10:31 INR 1.0 (<1.2) 01/17/21 10:31 D-Dimer 0.79 mg/L FEU (<0.60) H 01/17/21 10:31 Abnormal lab findings: Abnormal Labs 01/17/21 01/17/21 01/17/21 10:23 10:31 10:31 RBC Hct 54.1 H MCV 107.0 H D RDW 15.9 H Lymphocytes # Monocytes # (Manual) 1.19 H Metamyelocytes # (Man) 0.10 H Myelocytes # (Manual) 0.10 H Nucleated RBCs 1 H Macrocytosis Marked A D-Dimer 0.79 H ABG pH ABG pCO2 ABG pO2 ABG HCO3 ABG Total CO2 ABG O2 Saturation VBG pH VBG pCO2 VBG HCO3 Sodium Potassium Carbon Dioxide Glucose POC Glucose (mg/dL) 125 H Osmolality Plasma Lactic Acid Otto Magnesium Alkaline Phosphatase Ammonia Creatine Kinase C-Reactive Protein Total Protein Albumin Urine Protein Urine Bacteria Urine Mucus Ur Barbiturates Screen 01/17/21 01/17/21 01/17/21 10:32 10:58 11:29 RBC Hct MCV RDW Lymphocytes # Monocytes # (Manual) Metamyelocytes # (Man) Myelocytes # (Manual) Nucleated RBCs Macrocytosis D-Dimer ABG pH ABG pCO2 ABG pO2 ABG HCO3 ABG Total CO2 ABG O2 Saturation VBG pH 7.12 L* VBG pCO2 119 H* VBG HCO3 37 H Sodium Potassium Carbon Dioxide Glucose POC Glucose (mg/dL) Osmolality Plasma Lactic Acid Otto 0.6 L Magnesium Alkaline Phosphatase Ammonia 95 H Creatine Kinase C-Reactive Protein Total Protein Albumin Urine Protein 1+ H Urine Bacteria Rare H Urine Mucus Rare H Ur Barbiturates Screen Detected H 01/17/21 01/17/21 01/18/21 11:29 20:01 00:21 RBC Hct MCV RDW Lymphocytes # Monocytes # (Manual) Metamyelocytes # (Man) Myelocytes # (Manual) Nucleated RBCs Macrocytosis D-Dimer ABG pH 7.26 L ABG pCO2 88 H* ABG pO2 35 L* ABG HCO3 40 H* ABG Total CO2 42 H ABG O2 Saturation 71.6 L VBG pH VBG pCO2 VBG HCO3 Sodium 147 H Potassium 5.2 H Carbon Dioxide 38 H Glucose 134 H POC Glucose (mg/dL) 125 H Osmolality 315 H Plasma Lactic Acid Otto Magnesium 2.5 H Alkaline Phosphatase 204 H Ammonia Creatine Kinase 48 L C-Reactive Protein 6.2 H Total Protein Albumin Urine Protein Urine Bacteria Urine Mucus Ur Barbiturates Screen 01/18/21 01/18/21 01/18/21 01:10 04:20 04:20 RBC 4.29 L Hct MCV 105.9 H RDW 15.9 H Lymphocytes # 0.7 L Monocytes # (Manual) Metamyelocytes # (Man) Myelocytes # (Manual) Nucleated RBCs Macrocytosis D-Dimer ABG pH ABG pCO2 69 H ABG pO2 59 L* ABG HCO3 40 H* ABG Total CO2 42 H ABG O2 Saturation 92.5 L VBG pH VBG pCO2 VBG HCO3 Sodium Potassium Carbon Dioxide 36 H Glucose 127 H POC Glucose (mg/dL) Osmolality Plasma Lactic Acid Otto Magnesium Alkaline Phosphatase 185 H Ammonia Creatine Kinase 34 L C-Reactive Protein 5.9 H Total Protein 5.6 L Albumin 3.3 L Urine Protein Urine Bacteria Urine Mucus Ur Barbiturates Screen 01/18/21 01/18/21 04:52 11:17 RBC Hct MCV RDW Lymphocytes # Monocytes # (Manual) Metamyelocytes # (Man) Myelocytes # (Manual) Nucleated RBCs Macrocytosis D-Dimer ABG pH ABG pCO2 59 H ABG pO2 ABG HCO3 39 H ABG Total CO2 41 H ABG O2 Saturation 97.9 H VBG pH VBG pCO2 VBG HCO3 Sodium Potassium Carbon Dioxide Glucose POC Glucose (mg/dL) 130 H Osmolality Plasma Lactic Acid Otto Magnesium Alkaline Phosphatase Ammonia Creatine Kinase C-Reactive Protein Total Protein Albumin Urine Protein Urine Bacteria Urine Mucus Ur Barbiturates Screen - Diagnostic Findings Chest x-ray: report reviewed, image reviewed CT scan - chest: report reviewed, image reviewed Assessment and Plan Plan: Assessment: #1. Acute on chronic hypoxic respiratory failure related to acute exacerbation of COPD, and possibility of pneumonia is not entirely excluded #2. Acute exacerbation of CHF with most recent documented normal EF and diastolic dysfunction #3. Bilateral hilar lymph nodes, likely reactive, will follow to monitor for any change #4. Altered mental status related to acute chronic hypoxic respiratory failure #5. Hepatic encephalopathy with elevated ammonia level #6. Chronic and ongoing nicotine dependence #7. History of seizure disorder #8. History of coronary artery disease with previous stenting and history of myocardial infarction #9. Chronic kidney disease #10. Anemia of chronic disease #11. History of CVA with residual left arm weakness #12. Chronic systolic CHF and ischemic heart disease #13. Obstructive sleep apnea Plan: Continue current antibiotics Continue breathing treatments and steroids Vent adjustments have been made and respiratory rate was decreased down to 22 and FiO2 down to 80% Send sputum culture Continue Levaquin, we will add vancomycin We'll discontinue Lasix Initiate nutritional support and tube feedings Obtain a PICC line I performed a history & physical examination of the patient and discussed their management with my nurse practitioner, Heena De La Garza. I reviewed the nurse practitioner's note and agree with the documented findings and plan of care. Lung sounds are positive for diminished breath sounds The findings and the impression was discussed with the patient. I attest to the documentation by the nurse practitioner. Time with Patient: Greater than 30
--- NOTE | 2021-01-18 12:50 | IR ---
EXAMINATION TYPE: IR cvc insert >=5 years DATE OF EXAM: 01/18/2021 COMPARISON: NONE HISTORY: Infection, needs long-term intravenous access for therapy FINDINGS: Maximal barrier technique was utilized. Hand hygiene obtained with soap and water and alco hol-based hand rub. The skin overlying the left basilic vein was localized with ultrasound and noted to be compressible and patent by ultrasound. An ultrasound [facility] Sterile technique utilized with the ultrasound machine. The skin overlying was prepped an d draped and Lidocaine used for local anesthesia. A skin moi was made with a scalpel. Access was g ained to the vein under direct ultrasound guidance with a 21-gauge needle and a 0.018 inch wire was a dvanced. Access site was dilated with a peel-away sheath and the catheter tailored to length. Liv ter advanced centrally and a post procedure chest x-ray verified placement with the tip in the right atrium, catheter withdrawn 2 cm and now with tip at the superior vena cava right atrial junction. Ca theter was fixed to the skin and a sterile dressing placed. Hemostasis achieved and the catheter was aspirated and flushed with sterile saline. The patient remained in stable condition. IMPRESSION: STATUS POST ULTRASOUND GUIDED PICC LINE PLACEMENT, READY FOR USE. THIS PROCEDURE WAS PER FORMED BY THE UNDERSIGNED.
--- NOTE | 2021-01-18 13:09 | XR ---
EXAMINATION TYPE: XR chest 1V confirm line [facility] DATE OF EXAM: 01/18/2021 COMPARISON: Chest x-ray same dated earlier time HISTORY: Post PICC line placement TECHNIQUE: Single frontal view of the chest is obtained. FINDINGS: This been interval placement of the PICC line on the left. Distal tip is near the cavoatri al junction. No other interval change is evident. Patient is rotated, right lung base not included on exam. IMPRESSION: No evident complication status post PICC line placement.
[2021-01-18] MEDS ORDERED: FUROSEMIDE 10 MG/ML 4 ML VIAL IV STA (14:00)
[2021-01-18] MEDS ORDERED: FUROSEMIDE 10 MG/ML 4 ML VIAL ONE (14:06)
[2021-01-18] MEDS: SODIUM CHLORIDE 0.9% 1,000 ML IV SCH (14:09)
--- NOTE | 2021-01-18 16:11 | P.PN ---
Subjective Progress Note Date: 01/18/21 This is 60-year-old gentleman follows with Dr. Teran in the office with past medical history of CAD-myocardial infarction, cardiac stents, seizure disorder, CVA with residual left arm weakness SLE, COPD on 3 L home O2, nicotine dependence-2 packs per day, brought to the ER via EMS with complaints of altered mental status, worsening shortness of breath. Significant other states patient had gone to bed at 11 PM the night prior with normal mental status and was unable to arouse him the next morning and called EMS. Patient was arousable, lethargic as EMS transferring patient to stretcher. Denies trauma, denies seizure activity denies nausea vomiting or diarrhea. Denies abdominal pain. Denies chest pain, palpitations. Significant other further reports patient had been falling multiple times yesterday, called EMS but patient refused. On admission afebrile, normal WBC, hypertensive with systolic blood pressures in the 180s, heart rate stable, respiratory rate 16-20, requiring a nonrebreather to maintain O2 sats of 94-97%. Oxygen and has since been weaned down to high flow 8 L nasal cannula, maintaining O2 sats in the low 90s. Hemoglobin 16.9, platelets 210, MCV 107. D-dimer 0.79. Sodium 147, potassium 5.2, CO2 38, BUN 14, creatinine 0.83, blood sugars controlled, magnesium 2.5, lactic acid 0.6, T bili and LFTs within normal limits with the exception of alk phos mildly elevated 204. Ammonia 95, creatinine kinase 48, troponin negative 1, CRP 6.2 BNP 3490. UA negative. Toxicology detected barbiturates, phenytoin level subtherapeutic at 3.9, serum alcohol less than 10. Coronavirus, influenza A/B not detected. Head/C-spine CT reported no acute fracture, dislocation of the C-spine with no acute intracranial hemorrhage or midline shift. Chest x-ray reported cardiomegaly, diminished inspiration, elevated left hemidiaphragm, persistent right mid and lower lung opacity is, possibly acute infiltrates with new left upper lung acute infiltrate. Chest CT suboptimal ,reported no large central PE, moderate to severe 3 vessel CAD, new tiny bilateral pleural effusions, scattered atelectasis and/or consolidation bilaterally new from prior, new bilateral hilar adenopathy, new prominent bilateral hilar lymph nodes, prominent subcarinal 2.5 x 1.1 cm lymph node, fatty liver EKG reported sinus rhythm with occasional PVC, possible left atrial enlargement .received IV fluids including Banana bag, Levaquin, IV steroids, nebulized bronchodilators and a dose of Lasix IV push in the ER. 01/18/2021 Intubated during the night, FiO2 currently at 60% ,PEEP increased to 16. Sedated on diprovan. Chest x-ray reporting improvement in aeration, possible pleural thickening, possible minimal effusion, pneumonia- mild blunting of costophrenic angles with hemidiaphragm is partially obscured, bilateral patchy bilateral lung base density. Received lactulose last night, ammonia level down to 29. Alk phos trending down, 185. Receiving vancomycin and Levaquin,.T- max 99.9, WBC 8.3. CO2 36. Renal function stable. PICC line placed. Neurology currently at bedside, evaluating. Objective - Vital Signs Vital signs: Vital Signs Temp 98.7 F 01/18/21 04:00 Pulse 80 01/18/21 10:00 Resp 22 01/18/21 10:00 BP 136/83 01/18/21 10:00 Pulse Ox 93 L 01/18/21 10:00 Intake & Output 01/17/21 01/18/21 01/18/21 18:59 06:59 18:59 Intake Total 695.215 60 Output Total 1775 100 Balance -1079.785 -40 Weight 113.398 kg 107 kg Intake: IV 420 60 Sodium Chloride 0.9% 1, 300 000 ml @ 100 mls/hr IV . Q10H7M ONE with Mvi, Adult No.4 with Vit K 10 ml with Thiamine 100 mg with Folic Acid 1 mg Rx#: [id number] Sodium Chloride 0.9% 1, 120 60 000 ml @ 20 mls/hr IV . Q24H [facility] Rx#:[id number] Intake, IV Titration 275.215 Amount propofoL 1,000 mg In 275.215 Empty Bag 1 bag @ Titrate IV .Q0M [facility] Rx#: [id number] Output: Gastric Drainage 390 Urine 385 100 Stool 1000 Other: Voiding Method Indwelling Catheter Indwelling Catheter - Exam General: Obese, intubated, sedated, NAD HEENT: [Normocephalic , atraumatic PERRL. EOMI. No pharyngeal erythema or exudate. NG with bilious drainage. Neck: [Supple, unable to assess JVD, short neck Cardiac: [Heart regular in rate and rhythm. No S3. No S4. No clicks, rubs. No murmur.] Lungs: Minimal air exchange, bilateral bases diminished. Abdomen: [Soft , distended, nontender ,No mass. No organomegaly. Bowel sounds presnt. Extremities: [Trace edema no cyanosis, pos.normal pulses] Skin: [Warm and dry, No rash.] Neurologic: (chronic residual left arm weakness), intubated and sedated unable to fully assess.] - Labs CBC & Chem 7: 01/18/21 04:20 01/18/21 04:20 Labs: Abnormal Lab Results - Last 24 Hours (Table) 01/17/21 01/17/21 01/17/21 Range/Units 10:31 10:31 10:58 RBC (4.30-5.90) m/uL Hct 54.1 H (39.0-53.0) % MCV 107.0 H D (80.0-100.0) fL RDW 15.9 H (11.5-15.5) % Lymphocytes # (1.0-4.8) k/uL Monocytes # (Manual) 1.19 H (0-1.0) k/uL Metamyelocytes # (Man) 0.10 H (0) k/uL Myelocytes # (Manual) 0.10 H (0) k/uL Nucleated RBCs 1 H (0-0) /100 WBC Macrocytosis Marked A D-Dimer 0.79 H (<0.60) mg/L FEU ABG pH (7.35-7.45) ABG pCO2 (35-45) mmHg ABG pO2 (83-108) mmHg ABG HCO3 (21-25) mmol/L ABG Total CO2 (19-24) mmol/L ABG O2 Saturation (94-97) % Sodium (137-145) mmol/L Potassium (3.5-5.1) mmol/L Carbon Dioxide (22-30) mmol/L Glucose (74-99) mg/dL POC Glucose (mg/dL) (75-99) mg/dL Osmolality (280-301) mosm/kg Plasma Lactic Acid Otto (0.7-2.0) mmol/L Magnesium (1.6-2.3) mg/dL Alkaline Phosphatase (38-126) U/L Ammonia (<30) umol/L Creatine Kinase (55-170) U/L C-Reactive Protein (<1.0) mg/dL Total Protein (6.3-8.2) g/dL Albumin (3.5-5.0) g/dL Urine Protein 1+ H (Negative) Urine Bacteria Rare H (None) /hpf Urine Mucus Rare H (None) /hpf Ur Barbiturates Screen Detected H (NotDetected) 01/17/21 01/17/21 01/17/21 Range/Units 11:29 11:29 20:01 RBC (4.30-5.90) m/uL Hct (39.0-53.0) % MCV (80.0-100.0) fL RDW (11.5-15.5) % Lymphocytes # (1.0-4.8) k/uL Monocytes # (Manual) (0-1.0) k/uL Metamyelocytes # (Man) (0) k/uL Myelocytes # (Manual) (0) k/uL Nucleated RBCs (0-0) /100 WBC Macrocytosis D-Dimer (<0.60) mg/L FEU ABG pH 7.26 L (7.35-7.45) ABG pCO2 88 H* (35-45) mmHg ABG pO2 35 L* (83-108) mmHg ABG HCO3 40 H* (21-25) mmol/L ABG Total CO2 42 H (19-24) mmol/L ABG O2 Saturation 71.6 L (94-97) % Sodium 147 H (137-145) mmol/L Potassium 5.2 H (3.5-5.1) mmol/L Carbon Dioxide 38 H (22-30) mmol/L Glucose 134 H (74-99) mg/dL POC Glucose (mg/dL) (75-99) mg/dL Osmolality 315 H (280-301) mosm/kg Plasma Lactic Acid Otto 0.6 L (0.7-2.0) mmol/L Magnesium 2.5 H (1.6-2.3) mg/dL Alkaline Phosphatase 204 H (38-126) U/L Ammonia 95 H (<30) umol/L Creatine Kinase 48 L (55-170) U/L C-Reactive Protein 6.2 H (<1.0) mg/dL Total Protein (6.3-8.2) g/dL Albumin (3.5-5.0) g/dL Urine Protein (Negative) Urine Bacteria (None) /hpf Urine Mucus (None) /hpf Ur Barbiturates Screen (NotDetected) 01/18/21 01/18/21 01/18/21 Range/Units 00:21 01:10 04:20 RBC 4.29 L (4.30-5.90) m/uL Hct (39.0-53.0) % MCV 105.9 H (80.0-100.0) fL RDW 15.9 H (11.5-15.5) % Lymphocytes # 0.7 L (1.0-4.8) k/uL Monocytes # (Manual) (0-1.0) k/uL Metamyelocytes # (Man) (0) k/uL Myelocytes # (Manual) (0) k/uL Nucleated RBCs (0-0) /100 WBC Macrocytosis D-Dimer (<0.60) mg/L FEU ABG pH (7.35-7.45) ABG pCO2 69 H (35-45) mmHg ABG pO2 59 L* (83-108) mmHg ABG HCO3 40 H* (21-25) mmol/L ABG Total CO2 42 H (19-24) mmol/L ABG O2 Saturation 92.5 L (94-97) % Sodium (137-145) mmol/L Potassium (3.5-5.1) mmol/L Carbon Dioxide (22-30) mmol/L Glucose (74-99) mg/dL POC Glucose (mg/dL) 125 H (75-99) mg/dL Osmolality (280-301) mosm/kg Plasma Lactic Acid Otto (0.7-2.0) mmol/L Magnesium (1.6-2.3) mg/dL Alkaline Phosphatase (38-126) U/L Ammonia (<30) umol/L Creatine Kinase (55-170) U/L C-Reactive Protein (<1.0) mg/dL Total Protein (6.3-8.2) g/dL Albumin (3.5-5.0) g/dL Urine Protein (Negative) Urine Bacteria (None) /hpf Urine Mucus (None) /hpf Ur Barbiturates Screen (NotDetected) 01/18/21 01/18/21 01/18/21 Range/Units 04:20 04:52 11:17 RBC (4.30-5.90) m/uL Hct (39.0-53.0) % MCV (80.0-100.0) fL RDW (11.5-15.5) % Lymphocytes # (1.0-4.8) k/uL Monocytes # (Manual) (0-1.0) k/uL Metamyelocytes # (Man) (0) k/uL Myelocytes # (Manual) (0) k/uL Nucleated RBCs (0-0) /100 WBC Macrocytosis D-Dimer (<0.60) mg/L FEU ABG pH (7.35-7.45) ABG pCO2 59 H (35-45) mmHg ABG pO2 (83-108) mmHg ABG HCO3 39 H (21-25) mmol/L ABG Total CO2 41 H (19-24) mmol/L ABG O2 Saturation 97.9 H (94-97) % Sodium (137-145) mmol/L Potassium (3.5-5.1) mmol/L Carbon Dioxide 36 H (22-30) mmol/L Glucose 127 H (74-99) mg/dL POC Glucose (mg/dL) 130 H (75-99) mg/dL Osmolality (280-301) mosm/kg Plasma Lactic Acid Otto (0.7-2.0) mmol/L Magnesium (1.6-2.3) mg/dL Alkaline Phosphatase 185 H (38-126) U/L Ammonia (<30) umol/L Creatine Kinase 34 L (55-170) U/L C-Reactive Protein 5.9 H (<1.0) mg/dL Total Protein 5.6 L (6.3-8.2) g/dL Albumin 3.3 L (3.5-5.0) g/dL Urine Protein (Negative) Urine Bacteria (None) /hpf Urine Mucus (None) /hpf Ur Barbiturates Screen (NotDetected) Microbiology - Last 24 Hours (Table) 01/18/21 00:38 Sputum Culture - Preliminary Sputum Assessment and Plan Assessment: Acute on chronic hypoxic, hypercapnic respiratory failure, secondary to acute bilateral pneumonia, possibly aspiration, possible community acquired, acute COPD exacerbation, possible mild component of acute CHF systolic dysfunction secondary to fluid overload. wears 3 L nasal cannula O2 at home, requiring nonrebreather on admission, currently on high flow nasal cannula. New prominent bilateral hilar lymph nodes, prominent subcarinal 2.5 x 1.1 cm lymph node Acute metabolic encephalopathy secondary to the above Hepatic encephalopathy, ammonia 95, fatty liver on CTA, denies alcohol abuse Chronic interstitial lung disease Ongoing Nicotine dependence Recurrent falls, history of alcohol use Seizure disorder, Dilantin level subtherapeutic on admission Gastroesophageal reflux disease Chronic renal failure, stage I Anemia of chronic disease History of CVA with residual left arm weakness Hypertension Chronic Systolic CHF, Ischemic heart disease CAD, history of [place] cardiac stent Obstructive sleep apnea Morbid Obesity, BMI 33.8 Hospital course: Continue on current medication regime ,monitoring and symptomatic treatment. Sputum culture pending. Aggressive pulmonary toileting, nebulized bronchodilators, steroids, antibiotics. at bedside, updated. Prognosis guarded in a patient with multiple complex medical issues. The impression and plan of care has been dictated as directed. : I performed a history and examination of this patient, discussed the same with the dictator. I agree with the dictator's note ,documented as a scribe. Any additional findings or plans will be noted.
[2021-01-18] MEDS: MONTELUKAST 10 MG TAB PO SCH (17:02)
[2021-01-18 18:16] LABS: Glucose,Whole Blood 124 mg/dL (75-99)
--- NOTE | 2021-01-18 21:15 | P.CNNES ---
History of Present Illness Consult date: 01/18/21 Requesting physician: Gerson Gallardo Reason for Consult: Altered mental status History of Present Illness: Patient is a 60-year-old male came to the hospital yesterday at 10:40 AM by ambulance for altered mental status. Patient not able to provide any history, as he is on propofol infusion of 40 g. According to EMS flow sheet, patient's has mentioned that she could not await the patient. Patient was noted to b e laying in right recovery position with shallow snoring respiration. Patient was rolled to his back which opened his airway in of that the snoring stopped. Patient's skin and lips were dry. Patient's saturation was 80%, went up to 95% on nonrebreather mask at 15 L/m. Patient's blood pressure was 168/89, pulse rate 74, saturation 80%. Blood sugar 1:30. Patient was brought to the hospital. Vital signs on arrival blood pressure 186/96, pulse rate 74, temperature 97.6. Computed tomography scan of cervical spine showed no acute fracture or dislocation evident in the cervical spine. CT of the head showed no acute intracranial hemorrhage or midline shift. Chest x-ray revealed cardiomegaly and chronic changes with diminished inspiration and elevated left hemidiaphragm. Persistent right mid and lower lung opacities could reflect residual acute infiltrates. New left Upper lung acute infiltrate. CT of the chest shows suboptimal study without central saddle pulmonary embolism. Cannot exclude smaller subsegmental and subsegmental PE on this study. More prominent cardiomegaly. New tiny bilateral pleural effusions. New bilateral hilar adenopathy. Possible acute infectious process on background CHF exacerbation, correlate clinically. EKG shows sinus rhythm with occasional PVC. Patient's blood test on arrival shows WBC 9.9 hemoglobin 16.9, platelets 210. Elevated MCV 107.0. PT/PTT normal. VBG showed pH 7.12, pCO2 119, HCO3 37. Sodium 147 potassium 5.2, normal renal functions. Ammonia is 95. Troponin negative. Hepatic panel with normal AST and ALT and elevated bilirubin 2.5. UA is negative, urine drug screen positive for barbiturate. Dilantin 3.9. Blood lev el less than 10. Bernal virus negative. Repeat ammonia this morning is 29. Most recent ABG shows pH of 7.43, pCO2 59, pO2 87, saturation 97.9. Patient's was present today. She states that patient has been having falls at home. He has COPD for 20 years, CHF. She states that she went to give medications to him, and could not wake him up. He also has been falling, sleepy. Fell 4 times in the last 3 days. He would be sitting and he will fall off to the side. He is not passing out, just falling. She describes it as dozing off. Patient's is not a very clear historian. Patient's states that he has history of seizure disorder since age 16, he used to get grand mal seizure. The last seizure was over a year ago. She also mentions that he used to get seizures almost daily to every other day in the past. 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, lupus, continuous oxygen use at 3L, no cpap used, kidney failure with hemodilaysis in the past, 3 VT's, hypoglycemia Last Myocardial Infarction Date:: 2015 History of Any Multi-Drug Resistant Organisms: None Reported Past Surgical History: Cholecystectomy, Heart Catheterization, Heart Catheterization With Stent, Tonsillectomy Additional Past Surgical History / Comment(s): STATES 3 cardiac stents, Past Anesthesia/Blood Transfusion Reactions: No Reported Reaction Additional Past Anesthesia/Blood Transfusion Reaction / Comment(s): blood transfusion-no reaction, unknown family hx per spouse Date of Last Stent Placement:: 2015 Past Psychological History: Anxiety, Depression Smoking Status: Current some day smoker Past Alcohol Use History: None Reported Past Drug Use History: None Reported - Past Family History Father Family Medical History: Myocardial Infarction (VT) Mother Family Medical History: Asthma, Cancer, COPD Medications and Allergies Home Medications Medication Instructions Recorded Confirmed Type Metoprolol Tartrate [Lopressor] 25 mg PO BID #60 tab 09/18/15 01/17/21 Rx Loratadine [Claritin] 10 mg PO DAILY 05/21/16 01/17/21 History PARoxetine [Paxil] 20 mg PO DAILY 05/21/16 01/17/21 History Phenytoin Sodium Extended 200 mg PO BID 05/21/16 01/17/21 History [Dilantin] Clopidogrel Bisulfate [Clopidogrel] 75 mg PO DAILY 05/22/16 01/17/21 History Magnesium Oxide [Mag-Ox] 400 mg PO DAILY #30 tablet 07/11/16 01/17/21 Rx rOPINIRole HCL [Requip] 1 mg PO BID 08/30/16 01/17/21 History Mycophenolate Mofetil [Cellcept] 1,000 mg PO DAILY 10/03/17 01/17/21 History Theophylline Anhydrous 400 mg PO DAILY 10/03/17 01/17/21 History [Theophylline] Ergocalciferol (Vitamin D2) 50,000 unit PO Q14D 02/04/18 01/17/21 History [Vitamin D2] Montelukast [Singulair] 10 mg PO DAILY@1500 02/04/18 01/17/21 History Nitroglycerin Sl Tabs [Nitrostat] 0.4 mg SUBLINGUAL Q5M PRN 02/04/18 01/17/21 History Potassium Chloride [Klor-Con 20] 20 meq PO Q48H 02/04/18 01/17/21 History Potassium Chloride [Klor-Con 20] 40 meq PO QAM 02/04/18 01/17/21 History allopurinoL [Zyloprim] 100 mg PO DAILY 02/04/18 01/17/21 History Isosorbide Mononitrate ER [Imdur] 30 mg PO DAILY #30 tab 02/05/18 01/17/21 Rx Furosemide [Lasix] 80 mg PO BID 08/05/19 01/17/21 History hydrOXYzine HCL [Atarax] 25 mg PO Q8H PRN 08/05/19 01/17/21 History mycophenolate mofetiL [Cellcept] 500 mg PO HS 08/05/19 01/17/21 History Aspirin 325 mg PO DAILY 05/12/20 01/17/21 History Famotidine 20 mg PO DAILY 05/12/20 01/17/21 History HYDROcodone/APAP 7.5-325MG [Collbran 1 tab PO Q6H PRN 05/12/20 01/17/21 History 7.5-325] Multivitamins, Thera [Multivitamin 1 tab PO DAILY 05/12/20 01/17/21 History (formulary)] modafiniL [Provigil] 200 mg PO DAILY 05/12/20 01/17/21 History Albuterol Sulfate [Proair Hfa] 2 puff INHALATION RT-Q6H PRN 11/15/20 01/17/21 History Atorvastatin [Lipitor] 20 mg PO DAILY 11/15/20 01/17/21 History Fluticasone Propionate [Flovent 2 puff INHALATION RT-BID 11/15/20 01/17/21 History Hfa 220 mcg] Tiotropium [place] [Spiriva] 1 cap INHALATION RT-DAILY 11/15/20 01/17/21 History metFORMIN HCL [metFORMIN HCL ER] 1,500 mg PO W/SUPPER 11/15/20 01/17/21 History Cholestyramine (with Sugar) 4 gm PO DAILY 12/13/20 01/17/21 History [Cholestyramine Packet] Pregabalin [Lyrica] 200 mg PO TID 12/13/20 01/17/21 History Allergies Allergy/AdvReac Type Severity Reaction Status Date / Time Penicillins Allergy Severe Swelling Verified 01/17/21 10:23 Iodinated Contrast Media Allergy Swelling Verified 01/17/21 10:23 [Iodinated Contrast- Oral and IV Dye] iodine Allergy Itching, Verified 01/17/21 10:23 Hives phenobarbital AdvReac Drowsiness Verified 01/17/21 10:23 Physical Examination - Vital Signs Vital Signs: Vital Signs Temp Pulse Pulse Resp BP BP Pulse Ox 01/18/21 19:49 70 22 01/18/21 19:37 67 22 01/18/21 19:00 69 22 140/86 95 01/18/21 18:00 75 22 126/80 95 01/18/21 17:00 71 22 132/81 94 L 01/18/21 16:59 70 22 01/18/21 16:51 71 22 01/18/21 16:00 70 22 118/70 95 01/18/21 15:00 70 22 108/69 94 L 01/18/21 14:00 72 23 113/64 95 01/18/21 13:00 71 22 122/71 94 L 01/18/21 12:25 73 01/18/21 12:13 72 01/18/21 12:00 97.4 F L 74 22 104/61 92 L 01/18/21 11:00 78 22 105/87 91 L 01/18/21 10:00 80 22 136/83 93 L 01/18/21 09:00 73 22 130/81 95 01/18/21 08:50 75 01/18/21 08:39 73 01/18/21 08:00 75 24 126/80 96 01/18/21 07:00 74 24 126/76 96 01/18/21 06:00 73 24 133/77 97 01/18/21 05:00 73 24 121/75 98 01/18/21 04:00 98.7 F 71 24 114/70 94 L 01/18/21 03:00 71 24 101/65 91 L 01/18/21 02:00 99.9 F H 76 71 24 102/58 101/65 91 L 01/18/21 01:00 99.7 F H 72 81 24 101/57 102/58 93 L 01/17/21 23:45 72 18 101/64 91 L 01/17/21 23:00 72 20 94/55 01/17/21 22:00 79 20 100/56 89 L 01/17/21 21:30 82 20 109/64 89 L 01/17/21 21:00 82 20 105/64 89 L Intake and Output 01/18/21 01/18/21 01/18/21 06:59 14:59 22:59 Intake Total 658.928 341.244 720 Output Total 1086 278 7820 Balance -1116.072 166.244 -385 Intake: IV 420 160 120 Sodium Chloride 0.9% 1, 300 000 ml @ 100 mls/hr IV . Q10H7M ONE with Mvi, Adult No.4 with Vit K 10 ml with Thiamine 100 mg with Folic Acid 1 mg Rx#: [id number] Sodium Chloride 0.9% 1, 120 160 120 000 ml @ 20 mls/hr IV . Q24H [facility] Rx#:[id number] Intake, IV Titration 238.928 181.244 600 Amount Vancomycin 1,750 mg In 500 Sodium Chloride 0.9% 500 ml 500 ml @ 167 mls/hr IVPB Q8H [facility] Rx#: [id number] propofoL 1,000 mg In 238.928 181.244 100 Empty Bag 1 bag @ Titrate IV .Q0M [facility] Rx#: [id number] Output: Gastric Drainage 390 950 Urine 385 175 155 Stool 1000 Other: Voiding Method Indwelling Catheter Indwelling Catheter Indwelling Catheter Weight 107 kg On examination patient is a late middle aged male, who is intubated, sedated on propofol 40 g. Patient's pupils are round and reacting, oculocephalics are present. Corneals are present. Patient is breathing over the ventilator. He has good cough and gag. Patient's tone is equal bilaterally. Reflexes are 1 in the right side, 2+ in the left side. Plantars are downgoing bilaterally. Tone is equal bilaterally. No obvious seizure activity noted. Sensory, cerebellar functions, gait cannot be tested. Motor functions cannot be tested. On general examination there is no obvious bruit, S1 and S2 audible. Abdomen is protuberant. Results - Laboratory Findings CBC and BMP: 01/18/21 04:20 01/18/21 04:20 Abnormal Lab Findings: Abnormal Labs 01/17/21 01/17/21 01/17/21 10:23 10:31 10:31 RBC Hct 54.1 H MCV 107.0 H D RDW 15.9 H Lymphocytes # Monocytes # (Manual) 1.19 H Metamyelocytes # (Man) 0.10 H Myelocytes # (Manual) 0.10 H Nucleated RBCs 1 H Macrocytosis Marked A D-Dimer 0.79 H ABG pH ABG pCO2 ABG pO2 ABG HCO3 ABG Total CO2 ABG O2 Saturation VBG pH VBG pCO2 VBG HCO3 Sodium Potassium Carbon Dioxide Glucose POC Glucose (mg/dL) 125 H Osmolality Plasma Lactic Acid Otto Magnesium Alkaline Phosphatase Ammonia Creatine Kinase C-Reactive Protein Total Protein Albumin Urine Protein Urine Bacteria Urine Mucus Ur Barbiturates Screen 01/17/21 01/17/21 01/17/21 10:32 10:58 11:29 RBC Hct MCV RDW Lymphocytes # Monocytes # (Manual) Metamyelocytes # (Man) Myelocytes # (Manual) Nucleated RBCs Macrocytosis D-Dimer ABG pH ABG pCO2 ABG pO2 ABG HCO3 ABG Total CO2 ABG O2 Saturation VBG pH 7.12 L* VBG pCO2 119 H* VBG HCO3 37 H Sodium Potassium Carbon Dioxide Glucose POC Glucose (mg/dL) Osmolality Plasma Lactic Acid Otto 0.6 L Magnesium Alkaline Phosphatase Ammonia 95 H Creatine Kinase C-Reactive Protein Total Protein Albumin Urine Protein 1+ H Urine Bacteria Rare H Urine Mucus Rare H Ur Barbiturates Screen Detected H 01/17/21 01/17/21 01/18/21 11:29 20:01 00:21 RBC Hct MCV RDW Lymphocytes # Monocytes # (Manual) Metamyelocytes # (Man) Myelocytes # (Manual) Nucleated RBCs Macrocytosis D-Dimer ABG pH 7.26 L ABG pCO2 88 H* ABG pO2 35 L* ABG HCO3 40 H* ABG Total CO2 42 H ABG O2 Saturation 71.6 L VBG pH VBG pCO2 VBG HCO3 Sodium 147 H Potassium 5.2 H Carbon Dioxide 38 H Glucose 134 H POC Glucose (mg/dL) 125 H Osmolality 315 H Plasma Lactic Acid Otto Magnesium 2.5 H Alkaline Phosphatase 204 H Ammonia Creatine Kinase 48 L C-Reactive Protein 6.2 H Total Protein Albumin Urine Protein Urine Bacteria Urine Mucus Ur Barbiturates Screen 01/18/21 01/18/21 01/18/21 01:10 04:20 04:20 RBC 4.29 L Hct MCV 105.9 H RDW 15.9 H Lymphocytes # 0.7 L Monocytes # (Manual) Metamyelocytes # (Man) Myelocytes # (Manual) Nucleated RBCs Macrocytosis D-Dimer ABG pH ABG pCO2 69 H ABG pO2 59 L* ABG HCO3 40 H* ABG Total CO2 42 H ABG O2 Saturation 92.5 L VBG pH VBG pCO2 VBG HCO3 Sodium Potassium Carbon Dioxide 36 H Glucose 127 H POC Glucose (mg/dL) Osmolality Plasma Lactic Acid Otto Magnesium Alkaline Phosphatase 185 H Ammonia Creatine Kinase 34 L C-Reactive Protein 5.9 H Total Protein 5.6 L Albumin 3.3 L Urine Protein Urine Bacteria Urine Mucus Ur Barbiturates Screen 01/18/21 01/18/21 01/18/21 04:52 11:17 18:15 RBC Hct MCV RDW Lymphocytes # Monocytes # (Manual) Metamyelocytes # (Man) Myelocytes # (Manual) Nucleated RBCs Macrocytosis D-Dimer ABG pH ABG pCO2 59 H ABG pO2 ABG HCO3 39 H ABG Total CO2 41 H ABG O2 Saturation 97.9 H VBG pH VBG pCO2 VBG HCO3 Sodium Potassium Carbon Dioxide Glucose POC Glucose (mg/dL) 130 H 124 H Osmolality Plasma Lactic Acid Otto Magnesium Alkaline Phosphatase Ammonia Creatine Kinase C-Reactive Protein Total Protein Albumin Urine Protein Urine Bacteria Urine Mucus Ur Barbiturates Screen Assessment and Plan Assessment: * Altered mental status, likely due to toxic metabolic encephalopathy. Patient has hypercapnia, hyperammonemia, hypoxemia as a likely cause of altered mental status. * Recurrent falls of unclear etiology. Patient's states that all these episodes have occurred while sitting, he will fall to the side, almost like dozes off. He then gets up by himself. He is not passing out. Does not a ppear like seizures. Possible related to ?hypercapnia/hyperammonemia. * COPD * CAD, CHF * History of CVA, * Hypertension * Hyperlipidemia * CAD * Seizure disorder on Dilantin. Plan: * We will check EEG to evaluate for any epileptiform activity. * Patient had a carotid Doppler on 05/13/2020, which revealed antegrade flow in both vertebral arteries. There is bilateral plaque formation in the carotid artery bifurcations. Images and measurement suggest less than 25% stenosis in both ICA. No need to repeat. * Patient had a 2-D echo on 05/19/2020, which revealed normal left-ventricular size. Moderate concentric LVH. EF is between 50-55%. Mild to moderately enlarged right ventricle. * Patient's Dilantin level is subtherapeutic 3.9. Patient is currently on 200 mg twice a day. Patient states that he is compliant with the medication. He does not miss a dose. With his liver dysfunction, Dilantin may be slightly concerning. Discussed with patient's about switching to Keppra. She is not sure if patient has tried it before or not. She wants him to stay on Dilantin. We will give an extra loading dose of Dilantin to bring it the levels up. Patient's was recommended to have patient follow-up with the neurologist as outpatient to consider switching to another medication, if possible. * We will follow.
[2021-01-18] MEDS: LEVOFLOXACIN 750MG-D5W PMX 750 MG in DEXTROSE/WATER 1 150ML.BAG IVPB SCH (21:43)
[2021-01-18] MEDS: CHLORHEXIDINE GLUCONATE 15 ML CUP MUCOUS MEM SCH (21:43)
[2021-01-18] MEDS ORDERED: SODIUM CHLORIDE 0.9% 500 ML 500 ML IV ONE (23:12)
[2021-01-19 00:16] LABS: Glucose,Whole Blood 140 mg/dL (75-99)
[2021-01-19] MEDS: VANCOMYCIN 1,750 MG in SODIUM CHLORIDE 0.9% 500 ML 500 ML IVPB SCH ×2 (00:23→12:03)
[2021-01-19] MEDS: IPRATROPIUM-ALBUTEROL 3 ML NEB INHALATION SCH ×5 (03:07→19:23)
[2021-01-19 05:07] LABS: ABG Base Excess 14.1 mmol/L; ABG HCO3 39 mmol/L (21-25); ABG Oxygen Saturation 95.2 % (94-97); ABG PCO2 59 mmHg (35-45); ABG PH 7.42 (7.35-7.45); ABG PO2 70 mmHg (83-108); ABG TCO2 40 mmol/L (19-24); Allen Test Performed? Yes
[2021-01-19] MEDS: methylPREDNISolone SOD SUCCI 125 MG/2 ML VIAL IV SCH ×3 (06:05→18:32)
[2021-01-19 06:58] LABS: Glucose,Whole Blood 108 mg/dL (75-99)
[2021-01-19] MEDS ORDERED: VANCOMYCIN TROUGH DUE 1 EACH MISC MISCELLANE ONE (08:00)
[2021-01-19 08:32] LABS: Basophils % (A) 0 %; Eosinophils # (A) 0.1 k/uL (0-0.7); Eosinophils % (A) 1 %; HCT 43.7 % (39.0-53.0); HGB 14.2 gm/dL (13.0-17.5); Hypochromasia Moderate; Lymphocytes # (A) 0.9 k/uL (1.0-4.8); Lymphocytes % (A) 12 %; MCH 34.2 pg (25.0-35.0); MCHC 32.6 g/dL (31.0-37.0); MCV 105.1 fL (80.0-100.0); Macrocytosis Moderate; Mean Platelet Volume 8.2; Monocytes # (A) 0.3 k/uL (0-1.0); Monocytes % (A) 5 %; Neutrophils % (A) 81 %; Platelet Count 153 k/uL (150-450); Poikilocytosis Slight; RBC 4.15 m/uL (4.30-5.90); RDW 15.4 % (11.5-15.5); WBC 7.4 k/uL (3.8-10.6)
[2021-01-19] MEDS: ISOSORBIDE MONONITRATE ER 30 MG TAB.ER.24H PO SCH (08:45)
[2021-01-19 08:48] LABS: ALT 11 U/L (4-49); AST 14 U/L (17-59); African American GFR (CKD) >90 (>60 ml/min/1.73 sqM); Albumin 3.1 g/dL (3.5-5.0); Alkaline Phosphatase 162 U/L (38-126); Anion Gap 1 mmol/L; Blood Urea Nitrogen 18 mg/dL (9-20); Calcium 8.5 mg/dL (8.4-10.2); Carbon Dioxide 36 mmol/L (22-30); Chloride 108 mmol/L (98-107); Glucose 122 mg/dL (74-99); Non-African American GFR(CKD) >90 (>60 ml/min/1.73 sqM); Phenytoin (Dilantin) <3.0 ug/mL; Potassium 4.2 mmol/L (3.5-5.1); Sodium 145 mmol/L (137-145); Total Bilirubin 0.5 mg/dL (0.2-1.3); Total Protein 5.4 g/dL (6.3-8.2)
[2021-01-19] MEDS ORDERED: INSULIN ASPART (NovoLOG) 100 UNIT/ML VIAL SQ SCH (09:00)
--- NOTE | 2021-01-19 09:02 | XR ---
EXAMINATION TYPE: XR chest 1V portable DATE OF EXAM: 01/19/2021 COMPARISON: Prior chest x-ray 01/18/2021 HISTORY: Intubated TECHNIQUE: Single frontal view of the chest is obtained. FINDINGS: Endotracheal tube, orogastric tube, left-sided PICC line are present, PICC line overlying the cavoatrial junction. Bibasilar increased density persists. There is no evident pneumothorax. Diff icult to exclude small effusion. Cardiac mediastinal silhouette is stable. IMPRESSION: Findings are similar to prior exam. Correlate for pneumonia. Cardiomegaly.
[2021-01-19] MEDS: MULTIVITAMINS, THERA 1 EACH TAB PO SCH (09:03)
[2021-01-19] MEDS: ASPIRIN 325 MG TAB PO SCH (09:03)
[2021-01-19] MEDS: PREGABALIN 100 MG CAP PO SCH ×3 (09:03→22:10)
[2021-01-19] MEDS: LORATADINE 10 MG TAB PO SCH (09:04)
[2021-01-19] MEDS: FAMOTIDINE 20 MG TAB PO SCH (09:04)
[2021-01-19] MEDS: allopurinoL 100 MG TAB PO SCH (09:04)
[2021-01-19] MEDS: CLOPIDOGREL 75 MG TAB PO SCH (09:04)
[2021-01-19] MEDS: ATORVASTATIN 20 MG TAB PO SCH (09:04)
[2021-01-19] MEDS: THEOPHYLLINE 24 HOUR 400 MG CAP.ER.24H PO SCH (09:11)
[2021-01-19] MEDS: CHOLESTYRAMINE (WITH SUGAR) 4 GM PACKET PO SCH (09:14)
[2021-01-19] MEDS: PHENYTOIN SODIUM EXTENDED 100 MG CAP PO SCH (09:25)
[2021-01-19] MEDS: METOPROLOL TARTRATE 25 MG TAB PO SCH ×3 (10:02→22:07)
[2021-01-19] MEDS: PARoxetine 20 MG TAB PO SCH (10:12)
[2021-01-19] MEDS: MAGNESIUM OXIDE 400 MG TAB PO SCH (10:51)
[2021-01-19] MEDS: POTASSIUM CHLORIDE ER 20 MEQ TAB.ER PO SCH (10:52)
[2021-01-19 12:07] LABS: Glucose,Whole Blood 133 mg/dL (75-99)
[2021-01-19] MEDS ORDERED: Magnesium Replacement Protocol 1 EACH MISC MISCELLANE PRN (12:11)
[2021-01-19] MEDS: PHENYTOIN ORAL SUSP 100 MG/4 ML CUP PO SCH ×2 (12:17→22:11)
[2021-01-19] MEDS: INSULIN ASPART (NovoLOG) 100 UNIT/ML VIAL SQ SCH ×2 (12:17→19:09)
[2021-01-19] MEDS: CHLORHEXIDINE GLUCONATE 15 ML CUP MUCOUS MEM SCH ×2 (12:30→22:11)
[2021-01-19] MEDS: PANTOPRAZOLE 40 MG/10 ML VIAL IVP SCH (12:30)
--- NOTE | 2021-01-19 12:44 | P.PN ---
Subjective Progress Note Date: 01/19/21 This is 60-year-old gentleman follows with Dr. Teran in the office with past medical history of CAD-myocardial infarction, cardiac stents, seizure disorder, CVA with residual left arm weakness SLE, COPD on 3 L home O2, nicotine dependence-2 packs per day, brought to the ER via EMS with complaints of altered mental status, worsening shortness of breath. Significant other states patient had gone to bed at 11 PM the night prior with normal mental status and was unable to arouse him the next morning and called EMS. Patient was arousable, lethargic as EMS transferring patient to stretcher. Denies trauma, denies seizure activity denies nausea vomiting or diarrhea. Denies abdominal pain. Denies chest pain, palpitations. Significant other further reports patient had been falling multiple times yesterday, called EMS but patient refused. On admission afebrile, normal WBC, hypertensive with systolic blood pressures in the 180s, heart rate stable, respiratory rate 16-20, requiring a nonrebreather to maintain O2 sats of 94-97%. Oxygen and has since been weaned down to high flow 8 L nasal cannula, maintaining O2 sats in the low 90s. Hemoglobin 16.9, platelets 210, MCV 107. D-dimer 0.79. Sodium 147, potassium 5.2, CO2 38, BUN 14, creatinine 0.83, blood sugars controlled, magnesium 2.5, lactic acid 0.6, T bili and LFTs within normal limits with the exception of alk phos mildly elevated 204. Ammonia 95, creatinine kinase 48, troponin negative 1, CRP 6.2 BNP 3490. UA negative. Toxicology detected barbiturates, phenytoin level subtherapeutic at 3.9, serum alcohol less than 10. Coronavirus, influenza A/B not detected. Head/C-spine CT reported no acute fracture, dislocation of the C-spine with no acute intracranial hemorrhage or midline shift. Chest x-ray reported cardiomegaly, diminished inspiration, elevated left hemidiaphragm, persistent right mid and lower lung opacity is, possibly acute infiltrates with new left upper lung acute infiltrate. Chest CT suboptimal ,reported no large central PE, moderate to severe 3 vessel CAD, new tiny bilateral pleural effusions, scattered atelectasis and/or consolidation bilaterally new from prior, new bilateral hilar adenopathy, new prominent bilateral hilar lymph nodes, prominent subcarinal 2.5 x 1.1 cm lymph node, fatty liver EKG reported sinus rhythm with occasional PVC, possible left atrial enlargement .received IV fluids including Banana bag, Levaquin, IV steroids, nebulized bronchodilators and a dose of Lasix IV push in the ER. 01/18/2021 Intubated during the night, FiO2 currently at 60% ,PEEP increased to 16. Sedated on diprovan. Chest x-ray reporting improvement in aeration, possible pleural thickening, possible minimal effusion, pneumonia- mild blunting of costophrenic angles with hemidiaphragm is partially obscured, bilateral patchy bilateral lung base density. Received lactulose last night, ammonia level down to 29. Alk phos trending down, 185. Receiving vancomycin and Levaquin,.T- max 99.9, WBC 8.3. CO2 36. Renal function stable. PICC line placed. Neurology currently at bedside, evaluating. 01/19/2021 ABGs noted, FiO2 decreased to 50%, PEEP decreased to 12. Chest x-ray similar, improving. Placed on sedation holiday, following commands. Telemetry sinus rhythm. Neuro workup in progress with EEG currently being completed at bedside. Objective - Vital Signs Vital signs: Vital Signs Temp 98.4 F 01/19/21 08:00 Pulse 54 L 01/19/21 11:42 Resp 22 01/19/21 09:00 BP 158/99 01/19/21 09:00 Pulse Ox 94 L 01/19/21 09:00 Intake & Output 01/18/21 01/19/21 01/19/21 18:59 06:59 18:59 Intake Total 7527.641 3302.928 632.528 Output Total 830 905 315 Balance 215.143 2012.928 317.528 Weight 106.6 kg Intake: IV 220 2225 500 Sodium Chloride 0.9% 1, 220 1225 500 000 ml @ 125 mls/hr IV . Q8H [facility] Rx#:[id number] Sodium Chloride 0.9% 500 500 ml 500 ml @ 999 mls/hr IV .Q31M [facility] Rx#:[id number] Vancomycin 1,750 mg In 500 Sodium Chloride 0.9% 500 ml 500 ml @ 167 mls/hr IVPB Q8H [facility] Rx#: [id number] Intake, IV Titration 781.244 260.928 32.528 Amount Vancomycin 1,750 mg In 500 Sodium Chloride 0.9% 500 ml 500 ml @ 167 mls/hr IVPB Q8H [facility] Rx#: [id number] propofoL 1,000 mg In 281.244 260.928 32.528 Empty Bag 1 bag @ Titrate IV .Q0M [facility] Rx#: [id number] Other 45 100 Output: Gastric Drainage 500 600 200 Urine 330 305 115 Other: Voiding Method Indwelling Catheter Indwelling Catheter - Exam General: Obese, intubated, NAD HEENT: [Normocephalic , atraumatic PERRL. EOMI. Neck: [Supple, unable to assess JVD, short neck Cardiac: [Heart regular in rate and rhythm. No S3. No S4. No clicks, rubs. No murmur.] Lungs: Minimal air exchange, bilateral bases diminished. Abdomen: [Soft , obese, distended, nontender , no guarding or rigidity, positive bowel sounds Extremities: [Trace edema no cyanosis, pos.normal pulses] Skin: [Warm and dry, No rash.] Neurologic: intubated, no focal deficits. tone bilaterally equal. - Labs CBC & Chem 7: 01/19/21 08:16 01/19/21 08:16 Labs: Abnormal Lab Results - Last 24 Hours (Table) 01/18/21 01/19/21 01/19/21 Range/Units 18:15 00:14 05:06 RBC (4.30-5.90) m/uL MCV (80.0-100.0) fL Lymphocytes # (1.0-4.8) k/uL ABG pCO2 59 H (35-45) mmHg ABG pO2 70 L (83-108) mmHg ABG HCO3 39 H (21-25) mmol/L ABG Total CO2 40 H (19-24) mmol/L Chloride (98-107) mmol/L Carbon Dioxide (22-30) mmol/L Creatinine (0.66-1.25) mg/dL Glucose (74-99) mg/dL POC Glucose (mg/dL) 124 H 140 H (75-99) mg/dL AST (17-59) U/L Alkaline Phosphatase (38-126) U/L Total Protein (6.3-8.2) g/dL Albumin (3.5-5.0) g/dL 01/19/21 01/19/21 01/19/21 Range/Units 06:56 08:16 08:16 RBC 4.15 L (4.30-5.90) m/uL MCV 105.1 H (80.0-100.0) fL Lymphocytes # 0.9 L (1.0-4.8) k/uL ABG pCO2 (35-45) mmHg ABG pO2 (83-108) mmHg ABG HCO3 (21-25) mmol/L ABG Total CO2 (19-24) mmol/L Chloride 108 H (98-107) mmol/L Carbon Dioxide 36 H (22-30) mmol/L Creatinine 0.65 L (0.66-1.25) mg/dL Glucose 122 H (74-99) mg/dL POC Glucose (mg/dL) 108 H (75-99) mg/dL AST 14 L (17-59) U/L Alkaline Phosphatase 162 H (38-126) U/L Total Protein 5.4 L (6.3-8.2) g/dL Albumin 3.1 L (3.5-5.0) g/dL 01/19/21 Range/Units 12:07 RBC (4.30-5.90) m/uL MCV (80.0-100.0) fL Lymphocytes # (1.0-4.8) k/uL ABG pCO2 (35-45) mmHg ABG pO2 (83-108) mmHg ABG HCO3 (21-25) mmol/L ABG Total CO2 (19-24) mmol/L Chloride (98-107) mmol/L Carbon Dioxide (22-30) mmol/L Creatinine (0.66-1.25) mg/dL Glucose (74-99) mg/dL POC Glucose (mg/dL) 133 H (75-99) mg/dL AST (17-59) U/L Alkaline Phosphatase (38-126) U/L Total Protein (6.3-8.2) g/dL Albumin (3.5-5.0) g/dL Microbiology - Last 24 Hours (Table) 01/18/21 00:38 Gram Stain - Preliminary Sputum Sputum Culture - Preliminary 01/17/21 11:00 Blood Culture - Preliminary Blood No Growth after 24 hours 01/17/21 11:19 Blood Culture - Preliminary Blood No Growth after 24 hours Assessment and Plan Assessment: Acute on chronic hypoxic, hypercapnic respiratory failure, secondary to acute b ilateral pneumonia, possibly aspiration, possible community acquired, acute COPD exacerbation, possible mild component of acute CHF diastolic dysfunction secondary to fluid overload. wears 3 L nasal cannula O2 at home, requiring nonrebreather on admission, currently on high flow nasal cannula. New prominent bilateral hilar lymph nodes, prominent subcarinal 2.5 x 1.1 cm lymph node Acute metabolic and toxic encephalopathy secondary to the above, hyperammonemia Hepatic encephalopathy, ammonia 95, fatty liver on CTA, denies alcohol abuse Chronic interstitial lung disease Ongoing Nicotine dependence Recurrent falls, denies syncope, history of alcohol use Seizure disorder, Dilantin level subtherapeutic on admission, suspect noncompliance Gastroesophageal reflux disease Chronic renal failure, stage I Anemia of chronic disease History of CVA with residual left arm weakness Hypertension Chronic diastolic CHF, echo 05/18/2021 reporting LV function normal with EF 50- 55% CAD, history of [place] cardiac stent Obstructive sleep apnea Morbid Obesity, BMI 33.8 Hospital course: Continue on current medication regime ,monitoring and symptomatic treatment. Neuro workup in progress -EEG pending..Sputum culture pending. Maintain nebulized bronchodilators, steroids, antibiotics. Prognosis guarded in a patient with multiple complex medical issues. The impression and plan of care has been dictated as directed. : I performed a history and examination of this patient, discussed the same with the dictator. I agree with the dictator's note ,documented as a scribe. Any additional findings or plans will be noted.
--- NOTE | 2021-01-19 13:52 | P.PN ---
Subjective Progress Note Date: 01/19/21 Principal diagnosis: Dyspnea, hypoxia, abnormal chest x-ray 60-year-old white male patient with past medical history of COPD, chronic and ongoing history of tobacco dependence, coronary artery disease, previous history of myocardial infarction, previous placement of cardiac stents, seizure disorder, history of CVA with residual left arm weakness, chronic hypoxic respiratory failure and patient usually wears 3 L of oxygen at home who came into the emergency department on 01/17/2021 for evaluation of altered mental status, and worsening shortness of breath. Patient was quite lethargic and his could not arouse him in the morning and called EMS. Patient did become ar ousable but lethargic as EMS transferring him to the ER. His chest x-ray showed cardiomegaly and chronic changes with diminished inspiration and elevated left hemidiaphragm, and persistent right mid and lower lung opacities the clinic reflect residual acute infiltrates. He tested negative for COVID 19. CT of the brain and cervical spine showed no acute intracranial hemorrhage or midline shift, and no acute fracture or dislocation of the cervical spine. His admission blood work showed no evidence of leukocytosis, he is 1.0, was 9.9, hemoglobin was 16.9, hematocrit was elevated at 54.1, d-dimer was mildly elevated at 0.79 and CTA chest was completed showing no evidence of central saddle pulmonary embolism, however this was a suboptimal study, and smaller segmental subsegmental PEs could not be excluded, there was prominent cardiomegaly, and new tiny bilateral pleural effusions and scattered areas of atelectasis and/or consolidation bilaterally. There was new bilateral hilar adenopathy, and possible acute infectious process and CHF. Patient was initially placed on high flow nasal cannula, he was started on breathing treatments, diuretics, steroids, and antibiotics, as a day when he continued to be short of breath, and eventually was intubated and placed on mechanical ventilator and transferred to the intensive care unit, this morning he remains intubated and sedated, currently on assist control mode of ventilation with a rate of 24, multivitamins 450, FiO2 100%, and PEEP of 14, this was blood gases show pO2 of 87, pCO2 of 59, and pH of 7.43. He is currently on 0.9 normal saline at KVO, and improving and is currently at 30 weeks per kilo per minute, he is in sinus mechanism, he is not requiring any vasopressor support, current antibiotic coverage is Levaquin, patient's microbiology results from previous admissions has been reviewed and there is evidence of Enterobacter and Klebsiella pneumonia in his sputum cultures from previous admissions. Today's lab work has been reviewed showing white blood count 8.3, hemoglobin of 14.6, platelet count of 173, CO2 of 36, the rest of the electrolytes and renal profile were unremarkable, alkaline phosphatase is 185, otherwise AST and OT were within normal limits. On 01/19/2021 patient seen in follow-up in the intensive care unit, he remains intubated, sedated on mechanical ventilator, on assist control mode of venti lation with a rate of 22, tidal is 450, FiO2 of 40% and PEEP of 16, this was blood gas shows pO2 of 70, pCO2 59, and pH is 7.42, chest x-ray today shows bibasilar increased density and it is difficult to exclude small effusions, no evident pneumothorax, ET tube, orogastric tube, PICC line are in appropriate positions. Not on any vasoactive drips, not on any vasopressor support, he remains on combination of vancomycin and Levaquin for antibiotic coverage for possibility of pneumonia, blood and sputum cultures have been sent and are pending, so far showing no growth. Today's labs have been reviewed showing a white blood cell count is 7.4, hemoglobin of 14.2, sodium is 145, potassium 4.2, chloride is 108, CO2 is 36, B1 of 18, creatinine 0.65, alkaline phosphatase is improving and is down to 165, AST is 14, ALT is 11. Patient has been getting intermittent doses of Lasix, is however in positive fluid balance. No acute events overnight. Is producing urine in the order of 25-30 ML per hour. Objective - Vital Signs Vital signs: Vital Signs Temp 98.4 F 01/19/21 08:00 Pulse 54 L 01/19/21 11:42 Resp 22 01/19/21 09:00 BP 158/99 01/19/21 09:00 Pulse Ox 94 L 01/19/21 09:00 Intake & Output 01/18/21 01/19/21 01/19/21 18:59 06:59 18:59 Intake Total 1552.464 8016.928 632.528 Output Total 830 905 315 Balance 729.201 2883.928 317.528 Weight 106.6 kg 106.6 kg Intake: IV 220 2225 500 Sodium Chloride 0.9% 1, 220 1225 500 000 ml @ 125 mls/hr IV . [facility]H [facility] Rx#:[id number] Sodium Chloride 0.9% 500 500 ml 500 ml @ 999 mls/hr IV .Q31M [facility] Rx#:[id number] Vancomycin 1,750 mg In 500 Sodium Chloride 0.9% 500 ml 500 ml @ 167 mls/hr IVPB [facility] Rx#: [id number] Intake, IV Titration 781.244 260.928 32.528 Amount Vancomycin 1,750 mg In 500 Sodium Chloride 0.9% 500 ml 500 ml @ 167 mls/hr IVPB [facility] Rx#: [id number] propofoL 1,000 mg In 281.244 260.928 32.528 Empty Bag 1 bag @ Titrate IV .[facility]0M [facility] Rx#: [id number] Other 45 100 Output: Gastric Drainage 500 600 200 Urine 330 305 115 Other: Voiding Method Indwelling Catheter Indwelling Catheter - Exam GENERAL EXAM: Sedated, intubated, 60-year-old white male, on assist control mode of ventilation, with FiO2 of 40% and PEEP of 16 comfortable in no apparent distress. HEAD: Normocephalic/atraumatic. EYES: Normal reaction of pupils, equal size. Conjunctiva pink, sclera white. NOSE: Clear with pink turbinates. THROAT: No erythema or exudates. NECK: No masses, no JVD, no thyroid enlargement, no adenopathy. CHEST: No chest wall deformity. Symmetrical expansion. LUNGS: Equal air entry with no crackles, wheeze, rhonchi or dullness. CVS: Regular rate and rhythm, normal S1 and S2, no gallops, no murmurs, no rubs ABDOMEN: Soft, nontender. No hepatosplenomegaly, normal bowel sounds, no guarding or rigidity. EXTREMITIES: No clubbing, no edema, no cyanosis, 2+ pulses and upper and lower extremities. MUSCULOSKELETAL: Muscle strength and tone normal. SPINE: No scoliosis or deformity SKIN: No rashes CENTRAL NERVOUS SYSTEM: Sedated, intubated No focal deficits, tone is normal in all 4 extremities. - Labs CBC & Chem 7: 01/19/21 08:16 01/19/21 08:16 Labs: Abnormal Lab Results - Last 24 Hours (Table) 01/18/21 01/19/21 01/19/21 Range/Units 18:15 00:14 05:06 RBC (4.30-5.90) m/uL MCV (80.0-100.0) fL Lymphocytes # (1.0-4.8) k/uL ABG pCO2 59 H (35-45) mmHg ABG pO2 70 L (83-108) mmHg ABG HCO3 39 H (21-25) mmol/L ABG Total CO2 40 H (19-24) mmol/L Chloride (98-107) mmol/L Carbon Dioxide (22-30) mmol/L Creatinine (0.66-1.25) mg/dL Glucose (74-99) mg/dL POC Glucose (mg/dL) 124 H 140 H (75-99) mg/dL AST (17-59) U/L Alkaline Phosphatase (38-126) U/L Total Protein (6.3-8.2) g/dL Albumin (3.5-5.0) g/dL 01/19/21 01/19/21 01/19/21 Range/Units 06:56 08:16 08:16 RBC 4.15 L (4.30-5.90) m/uL MCV 105.1 H (80.0-100.0) fL Lymphocytes # 0.9 L (1.0-4.8) k/uL ABG pCO2 (35-45) mmHg ABG pO2 (83-108) mmHg ABG HCO3 (21-25) mmol/L ABG Total CO2 (19-24) mmol/L Chloride 108 H (98-107) mmol/L Carbon Dioxide 36 H (22-30) mmol/L Creatinine 0.65 L (0.66-1.25) mg/dL Glucose 122 H (74-99) mg/dL POC Glucose (mg/dL) 108 H (75-99) mg/dL AST 14 L (17-59) U/L Alkaline Phosphatase 162 H (38-126) U/L Total Protein 5.4 L (6.3-8.2) g/dL Albumin 3.1 L (3.5-5.0) g/dL 01/19/21 Range/Units 12:07 RBC (4.30-5.90) m/uL MCV (80.0-100.0) fL Lymphocytes # (1.0-4.8) k/uL ABG pCO2 (35-45) mmHg ABG pO2 (83-108) mmHg ABG HCO3 (21-25) mmol/L ABG Total CO2 (19-24) mmol/L Chloride (98-107) mmol/L Carbon Dioxide (22-30) mmol/L Creatinine (0.66-1.25) mg/dL Glucose (74-99) mg/dL POC Glucose (mg/dL) 133 H (75-99) mg/dL AST (17-59) U/L Alkaline Phosphatase (38-126) U/L Total Protein (6.3-8.2) g/dL Albumin (3.5-5.0) g/dL Microbiology - Last 24 Hours (Table) 01/17/21 11:00 Blood Culture - Preliminary Blood No Growth after 48 hours 01/17/21 11:19 Blood Culture - Preliminary Blood No Growth after 48 hours 01/18/21 00:38 Gram Stain - Preliminary Sputum Sputum Culture - Preliminary Assessment and Plan Plan: Assessment: #1. Acute on chronic hypoxic respiratory failure related to acute exacerbation of COPD, and possibility of pneumonia is not entirely excluded #2. Acute exacerbation of CHF with most recent documented normal EF and diastolic dysfunction #3. Bilateral hilar lymph nodes, likely reactive, will follow to monitor for any change #4. Altered mental status related to acute chronic hypoxic respiratory failure #5. Hepatic encephalopathy with elevated ammonia level #6. Chronic and ongoing nicotine dependence #7. History of seizure disorder #8. History of coronary artery disease with previous stenting and history of myocardial infarction #9. Chronic kidney disease #10. Anemia of chronic disease #11. History of CVA with residual left arm weakness #12. Chronic systolic CHF and ischemic heart disease #13. Obstructive sleep apnea Plan: FiO2 was increased to 50%, and PEEP was dropped down to 12 Continue current antibiotics Continue breathing treatments and steroids Chest x-ray felt to show some improvement in the appearance of bibasilar densities Cultures have been reviewed, no fever or chills, hemodynamically stable We'll discontinue metformin, discontinue lactulose Ammonia level has improved Continue Levaquin and vancomycin, continue steroids Continue nutritional support Not ready for weaning yet, or sedation holiday. I performed a history & physical examination of the patient and discussed their management with my nurse practitioner, Heena De La Garza. I reviewed the nurse practitioner's note and agree with the documented findings and plan of care. Lung sounds are positive for diminished breath sounds The findings and the impression was discussed with the patient. I attest to the documentation by the nurse practitioner. Time with Patient: Greater than 30
[2021-01-19] MEDS: SODIUM CHLORIDE 0.9% 1,000 ML IV SCH ×2 (14:19→20:39)
[2021-01-19] MEDS: HYDROcodone/APAP 7.5-325MG 1 EACH TAB PO PRN ×2 (14:19→20:14)
--- NOTE | 2021-01-19 15:55 | EEG ---
ELECTROENCEPHALOGRAM REPORT DATE OF SERVICE: 01/19/2021 PREAMBLE: This is a 60-year-old male with history of seizure disorder, came in with altered mental status. The patient is currently on Dilantin. EEG FINDINGS: This is a 21 channel routine EEG recording in a patient utilizing 10/20 international system with referential and bipolar montages. The background consists of moderately well-developed and regulated mixed frequencies of diffuse to 2-3 hertz delta, mixed with some theta and some alpha activity seen in bihemispheric region. Background is not clearly posterior dominant and does not seem to be reactive to eye opening and closing. Different stages of sleep were not seen. Photic driving response was not seen. No focal or generalized epileptiform activity was seen. EKG channel showed no arrhythmia. IMPRESSION: This is an abnormal EEG due to the background slowing of mild to moderate degree. This is suggestive of generalized cerebral dysfunction as can be seen in toxic metabolic encephalopathy or due to diffuse structural brain abnormality. No epileptiform activity was seen. MMODL / IJN: [id number] /
[2021-01-19] MEDS ORDERED: MVI, ADULT NO.4 WITH VIT K 10 ML, TRACE (CONC-1ML/DOSE) 1 ML in AMINO ACID 4.25%-D10W+L... IV SCH ×3 (16:30)
[2021-01-19 18:14] LABS: Glucose,Whole Blood 122 mg/dL (75-99)
[2021-01-19] MEDS: MONTELUKAST 10 MG TAB PO SCH (18:32)
[2021-01-19] MEDS: LEVOFLOXACIN 750MG-D5W PMX 750 MG in DEXTROSE/WATER 1 150ML.BAG IVPB SCH (19:58)
[2021-01-19] MEDS ORDERED: PHENYTOIN SODIUM INJ 500 MG in SODIUM CHLORIDE 0.9% 100 ML IVPB STA (23:24)
--- NOTE | 2021-01-19 23:27 | P.PN ---
Subjective Progress Note Date: 01/19/21 Patient was seen for a follow-up. Patient still intubated. On 45 mcg/kg/m of propofol. When the sedation is decreased, patient moves all 4 extremities. No seizures reported. Objective - Vital Signs Vital signs: Vital Signs Temp 97.4 F L 01/19/21 20:00 Pulse 56 L 01/19/21 20:00 Resp 22 01/19/21 20:00 BP 154/93 01/19/21 20:00 Pulse Ox 95 01/19/21 20:00 Intake & Output 01/19/21 01/19/21 01/20/21 06:59 18:59 06:59 Intake Total 2530.928 1926.000 201.752 Output Total 905 635 40 Balance 5079.102 2603.000 161.752 Weight 106.6 kg 106.6 kg Intake: IV 2225 1626 125 Sodium Chloride 0.9% 1, 1225 1125 125 000 ml @ 125 mls/hr IV . [facility] Rx#:[id number] Sodium Chloride 0.9% 500 500 ml 500 ml @ 999 mls/hr IV .Q31M [facility] Rx#:[id number] Vancomycin 1,750 mg In 501 Sodium Chloride 0.9% 500 ml 500 ml @ 167 mls/hr IVPB Q12H [facility] Rx#: [id number] Vancomycin 1,750 mg In 500 Sodium Chloride 0.9% 500 ml 500 ml @ 167 mls/hr IVPB Q8[facility] Rx#: [id number] Intake, IV Titration 260.928 200.000 76.752 Amount propofoL 1,000 mg In 260.928 200.000 76.752 Empty Bag 1 bag @ Titrate IV .Q0M [facility] Rx#: [id number] Other 45 100 Output: Gastric Drainage 600 200 Urine 305 435 40 Other: Voiding Method Indwelling Catheter Indwelling Catheter - Exam Patient is sedated. Patient is on mechanical ventilation. Patient's pupils are round and reacting, corneals are present. Patient's tone is equal bilaterally. Patient does move extremities to painful stimuli. - Labs CBC & Chem 7: 01/19/21 08:16 01/19/21 08:16 Labs: Abnormal Lab Results - Last 24 Hours (Table) 01/19/21 01/19/21 01/19/21 Range/Units 00:14 05:06 06:56 RBC (4.30-5.90) m/uL MCV (80.0-100.0) fL Lymphocytes # (1.0-4.8) k/uL ABG pCO2 59 H (35-45) mmHg ABG pO2 70 L (83-108) mmHg ABG HCO3 39 H (21-25) mmol/L ABG Total CO2 40 H (19-24) mmol/L Chloride (98-107) mmol/L Carbon Dioxide (22-30) mmol/L Creatinine (0.66-1.25) mg/dL Glucose (74-99) mg/dL POC Glucose (mg/dL) 140 H 108 H (75-99) mg/dL AST (17-59) U/L Alkaline Phosphatase (38-126) U/L Total Protein (6.3-8.2) g/dL Albumin (3.5-5.0) g/dL 01/19/21 01/19/21 01/19/21 Range/Units 08:16 08:16 12:07 RBC 4.15 L (4.30-5.90) m/uL MCV 105.1 H (80.0-100.0) fL Lymphocytes # 0.9 L (1.0-4.8) k/uL ABG pCO2 (35-45) mmHg ABG pO2 (83-108) mmHg ABG HCO3 (21-25) mmol/L ABG Total CO2 (19-24) mmol/L Chloride 108 H (98-107) mmol/L Carbon Dioxide 36 H (22-30) mmol/L Creatinine 0.65 L (0.66-1.25) mg/dL Glucose 122 H (74-99) mg/dL POC Glucose (mg/dL) 133 H (75-99) mg/dL AST 14 L (17-59) U/L Alkaline Phosphatase 162 H (38-126) U/L Total Protein 5.4 L (6.3-8.2) g/dL Albumin 3.1 L (3.5-5.0) g/dL 01/19/21 Range/Units 18:12 RBC (4.30-5.90) m/uL MCV (80.0-100.0) fL Lymphocytes # (1.0-4.8) k/uL ABG pCO2 (35-45) mmHg ABG pO2 (83-108) mmHg ABG HCO3 (21-25) mmol/L ABG Total CO2 (19-24) mmol/L Chloride (98-107) mmol/L Carbon Dioxide (22-30) mmol/L Creatinine (0.66-1.25) mg/dL Glucose (74-99) mg/dL POC Glucose (mg/dL) 122 H (75-99) mg/dL AST (17-59) U/L Alkaline Phosphatase (38-126) U/L Total Protein (6.3-8.2) g/dL Albumin (3.5-5.0) g/dL Microbiology - Last 24 Hours (Table) 01/17/21 11:00 Blood Culture - Preliminary Blood No Growth after 48 hours 01/17/21 11:19 Blood Culture - Preliminary Blood No Growth after 48 hours Assessment and Plan Assessment: * Altered mental status, likely due to toxic metabolic encephalopathy. Patient has hypercapnia, hyperammonemia, hypoxemia as a likely cause of altered mental status. * Recurrent falls of unclear etiology. Patient's states that all these episodes have occurred while sitting, he will fall to the side, almost like dozes off. He then gets up by himself. He is not passing out. Does not appear like seizures. Possible related to ?hypercapnia/hyperammonemia. * COPD * CAD, CHF * History of CVA, * Hypertension * Hyperlipidemia * CAD * Seizure disorder on Dilantin. Plan: * EEG was abnormal due to background slowing of mild to moderate degree. This is suggestive of generalized cerebral dysfunction as can be seen with toxic metabolic encephalopathy due to diffuse structural brain abnormality. No epileptiform activity was seen. * Repeat Dilantin level this morning is < 3.0. We will give an extra loading dose of Dilantin 500 mg. Recheck Dilantin level in a.m. * Patient had a carotid Doppler on 05/13/2020, which revealed antegrade flow in both vertebral arteries. There is bilateral plaque formation in the carotid artery bifurcations. Images and measurement suggest less than 25% stenosis in both ICA. No need to repeat. * Patient had a 2-D echo on 05/19/2020, which revealed normal left-ventricular size. Moderate concentric LVH. EF is between 50-55%. Mild to moderately enlarged right ventricle. * Patient states that he is compliant with the medication. Currently on Dilantin 200 mg twice a day. With his liver dysfunction, Dilantin may be slightly concerning. Discussed with patient's about switching to Keppra. She is not sure if patient has tried it before or not. She wants him to stay on Dilantin. Patient's was recommended to have patient follow-up with the neurologist as outpatient to consider switching to another medication, if possible.
[2021-01-20 00:03] LABS: Glucose,Whole Blood 181 mg/dL (75-99)
[2021-01-20] MEDS: IPRATROPIUM-ALBUTEROL 3 ML NEB INHALATION SCH ×6 (00:04→20:48)
[2021-01-20 00:34] LABS: Hemoglobin A1C 5.9 % (4.0-6.0)
[2021-01-20] MEDS: INSULIN ASPART (NovoLOG) 100 UNIT/ML VIAL SQ SCH ×5 (00:38→23:36)
[2021-01-20] MEDS: methylPREDNISolone SOD SUCCI 125 MG/2 ML VIAL IV SCH ×5 (00:39→23:36)
[2021-01-20] MEDS: VANCOMYCIN 1,750 MG in SODIUM CHLORIDE 0.9% 500 ML 500 ML IVPB SCH ×3 (00:48→23:42)
[2021-01-20 05:21] LABS: ABG Base Excess 9.6 mmol/L; ABG HCO3 35 mmol/L (21-25); ABG Oxygen Saturation 95.3 % (94-97); ABG PCO2 57 mmHg (35-45); ABG PH 7.39 (7.35-7.45); ABG PO2 77 mmHg (83-108); ABG TCO2 36 mmol/L (19-24); Allen Test Performed? Yes
[2021-01-20 05:42] LABS: Ionized Calcium 4.9 mg/dL (4.5-5.3)
[2021-01-20 06:08] LABS: African American GFR (CKD) >90 (>60 ml/min/1.73 sqM); Anion Gap 4 mmol/L; Blood Urea Nitrogen 15 mg/dL (9-20); Calcium 8.6 mg/dL (8.4-10.2); Carbon Dioxide 31 mmol/L (22-30); Chloride 105 mmol/L (98-107); Glucose 161 mg/dL (74-99); Magnesium 2.1 mg/dL (1.6-2.3); Non-African American GFR(CKD) >90 (>60 ml/min/1.73 sqM); Phenytoin (Dilantin) <3.0 ug/mL; Phosphorus 2.8 mg/dL (2.5-4.5); Potassium 4.1 mmol/L (3.5-5.1); Sodium 140 mmol/L (137-145)
[2021-01-20 06:17] LABS: Triglycerides 299 mg/dL (<150)
[2021-01-20 06:45] LABS: Glucose,Whole Blood 165 mg/dL (75-99)
--- NOTE | 2021-01-20 07:00 | XR ---
EXAMINATION TYPE: XR chest 1V portable DATE OF EXAM: 01/20/2021 COMPARISON: Chest x-ray 01/19/2021 HISTORY: Intubated TECHNIQUE: Single frontal view of the chest is obtained. FINDINGS: Endotracheal tube, orogastric tube, left-sided PICC line are all again noted and are overl dinh appropriate positions. No evident pneumothorax or sizable effusion. Prominent interstitium, patc hy bilateral airspace disease again noted. IMPRESSION: Findings are similar to prior exam, correlate for pneumonia, interstitial lung disease, edema, there is cardiomegaly
[2021-01-20] MEDS: METOPROLOL TARTRATE 25 MG TAB PO SCH ×2 (10:59→20:47)
[2021-01-20] MEDS ORDERED: VANCOMYCIN TROUGH DUE 1 EACH MISC MISCELLANE ONE (11:00)
--- NOTE | 2021-01-20 11:00 | P.PN ---
Subjective Progress Note Date: 01/20/21 Principal diagnosis: Dyspnea, hypoxia, abnormal chest x-ray 60-year-old white male patient with past medical history of COPD, chronic and ongoing history of tobacco dependence, coronary artery disease, previous history of myocardial infarction, previous placement of cardiac stents, seizure disorder, history of CVA with residual left arm weakness, chronic hypoxic respiratory failure and patient usually wears 3 L of oxygen at home who came into the emergency department on 01/17/2021 for evaluation of altered mental status, and worsening shortness of breath. Patient was quite lethargic and his could not arouse him in the morning and called EMS. Patient did become ar ousable but lethargic as EMS transferring him to the ER. His chest x-ray showed cardiomegaly and chronic changes with diminished inspiration and elevated left hemidiaphragm, and persistent right mid and lower lung opacities the clinic reflect residual acute infiltrates. He tested negative for COVID 19. CT of the brain and cervical spine showed no acute intracranial hemorrhage or midline shift, and no acute fracture or dislocation of the cervical spine. His admission blood work showed no evidence of leukocytosis, he is 1.0, was 9.9, hemoglobin was 16.9, hematocrit was elevated at 54.1, d-dimer was mildly elevated at 0.79 and CTA chest was completed showing no evidence of central saddle pulmonary embolism, however this was a suboptimal study, and smaller segmental subsegmental PEs could not be excluded, there was prominent cardiomegaly, and new tiny bilateral pleural effusions and scattered areas of atelectasis and/or consolidation bilaterally. There was new bilateral hilar adenopathy, and possible acute infectious process and CHF. Patient was initially placed on high flow nasal cannula, he was started on breathing treatments, diuretics, steroids, and antibiotics, as a day when he continued to be short of breath, and eventually was intubated and placed on mechanical ventilator and transferred to the intensive care unit, this morning he remains intubated and sedated, currently on assist control mode of ventilation with a rate of 24, multivitamins 450, FiO2 100%, and PEEP of 14, this was blood gases show pO2 of 87, pCO2 of 59, and pH of 7.43. He is currently on 0.9 normal saline at KVO, and improving and is currently at 30 weeks per kilo per minute, he is in sinus mechanism, he is not requiring any vasopressor support, current antibiotic coverage is Levaquin, patient's microbiology results from previous admissions has been reviewed and there is evidence of Enterobacter and Klebsiella pneumonia in his sputum cultures from previous admissions. Today's lab work has been reviewed showing white blood count 8.3, hemoglobin of 14.6, platelet count of 173, CO2 of 36, the rest of the electrolytes and renal profile were unremarkable, alkaline phosphatase is 185, otherwise AST and OT were within normal limits. On 01/19/2021 patient seen in follow-up in the intensive care unit, he remains intubated, sedated on mechanical ventilator, on assist control mode of venti lation with a rate of 22, tidal is 450, FiO2 of 40% and PEEP of 16, this was blood gas shows pO2 of 70, pCO2 59, and pH is 7.42, chest x-ray today shows bibasilar increased density and it is difficult to exclude small effusions, no evident pneumothorax, ET tube, orogastric tube, PICC line are in appropriate positions. Not on any vasoactive drips, not on any vasopressor support, he remains on combination of vancomycin and Levaquin for antibiotic coverage for possibility of pneumonia, blood and sputum cultures have been sent and are pending, so far showing no growth. Today's labs have been reviewed showing a white blood cell count is 7.4, hemoglobin of 14.2, sodium is 145, potassium 4.2, chloride is 108, CO2 is 36, B1 of 18, creatinine 0.65, alkaline phosphatase is improving and is down to 165, AST is 14, ALT is 11. Patient has been getting intermittent doses of Lasix, is however in positive fluid balance. No acute events overnight. Is producing urine in the order of 25-30 ML per hour. On 01/20/2021 patient seen in follow-up in intensive care unit, he remains intubated, sedated on mechanical ventilator, with assist control mode of ventilation rate of 22, tidal volume was 450, and FiO2 of 50% PEEP of 12, this morning's blood gas shows pO2 of 77, pCO2 57, and pH of 7.39, patient is currently on 0.9 normal saline at a rate of 125 ML per hour, Diprivan is a 55 mics per kilo per minute and TPN is at 30 ML per hour, today's chest x-ray shows improvement in the appearance of left lower lobe atelectasis or infiltrates, and there is prominent interstitium and patchy bilateral airspace disease. Hemodynamically patient is stable, in sinus mechanism with a rate of 50 BPM, not on any vasopressor support. Neurology is following with the patient for altered mental status, history of seizures, and feels that his altered mentation is related to toxic metabolic encephalopathy which is multifactorial. EEG was completed showing background slowing of [id number] degree, this is suggestive of generalized cerebral dysfunction seen in toxic metabolic encephalopathy or due to diffuse structural brain abnormality. No epileptiform activity was seen. In terms of his pneumonia patient remains on a combination of Levaquin and vancomycin, and blood and sputum cultures are pending, sputum preliminary culture shows rare epithelial cells, rare white blood cells, and moderate gram-positive cocci in clusters. Final culture is pending. Preliminary blood culture is still in progress. The blood work has been reviewed, white blood cell, 7.4, hemoglobin is 14.2. Sodium is 140, potassium is 4.1, chloride is 105, CO2 is 31, BUN of 15 and creatinine 0.51, ammonia level on yesterday's labs was improving and was down to 23. Patient remains on antibiotics as mentioned above, IV Solu-Medrol 60 mg every 6 hours, breathing treatments Objective - Vital Signs Vital signs: Vital Signs Temp 98.2 F 01/20/21 04:00 Pulse 58 L 01/20/21 07:59 Resp 22 01/20/21 07:00 BP 118/72 01/20/21 07:00 Pulse Ox 95 01/20/21 07:00 Intake & Output 01/19/21 01/20/21 01/20/21 18:59 06:59 18:59 Intake Total 1926.000 592.312 22.919 Output Total 635 590 35 Balance 1291.000 2.312 -12.081 Weight 106.6 kg 110.2 kg Intake: IV 1626 125 Sodium Chloride 0.9% 1, 1125 125 000 ml @ 125 mls/hr IV . Q8H [facility] Rx#:[id number] Vancomycin 1,750 mg In 501 Sodium Chloride 0.9% 500 ml 500 ml @ 167 mls/hr IVPB Q12H [facility] Rx#: [id number] Intake, IV Titration 200.000 347.312 22.919 Amount propofoL 1,000 mg In 200.000 347.312 22.919 Empty Bag 1 bag @ Titrate IV .Q0M [facility] Rx#: [id number] Oral 120 Other 100 Output: Gastric Drainage 200 Urine 435 590 35 Stool 0 Other: Voiding Method Indwelling Catheter Indwelling Catheter # Bowel Movements 0 - Exam GENERAL EXAM: Sedated, intubated, 60-year-old white male, on assist control mode of ventilation, with FiO2 of 50% and PEEP of 12 comfortable in no apparent distress. HEAD: Normocephalic/atraumatic. EYES: Normal reaction of pupils, equal size. Conjunctiva pink, sclera white. NOSE: Clear with pink turbinates. THROAT: No erythema or exudates. NECK: No masses, no JVD, no thyroid enlargement, no adenopathy. CHEST: No chest wall deformity. Symmetrical expansion. LUNGS: Equal air entry with no crackles, wheeze, rhonchi or dullness. CVS: Regular rate and rhythm, normal S1 and S2, no gallops, no murmurs, no rubs ABDOMEN: Soft, nontender. No hepatosplenomegaly, normal bowel sounds, no guarding or rigidity. EXTREMITIES: No clubbing, no edema, no cyanosis, 2+ pulses and upper and lower extremities. MUSCULOSKELETAL: Muscle strength and tone normal. SPINE: No scoliosis or deformity SKIN: No rashes CENTRAL NERVOUS SYSTEM: Sedated, intubated. No focal deficits, tone is normal in all 4 extremities. - Labs CBC & Chem 7: 01/19/21 08:16 01/20/21 04:20 Labs: Abnormal Lab Results - Last 24 Hours (Table) 01/19/21 01/19/21 01/20/21 Range/Units 12:07 18:12 00:00 ABG pCO2 (35-45) mmHg ABG pO2 (83-108) mmHg ABG HCO3 (21-25) mmol/L ABG Total CO2 (19-24) mmol/L Carbon Dioxide (22-30) mmol/L Creatinine (0.66-1.25) mg/dL Glucose (74-99) mg/dL POC Glucose (mg/dL) 133 H 122 H 181 H (75-99) mg/dL Triglycerides (<150) mg/dL 01/20/21 01/20/21 01/20/21 Range/Units 04:20 05:09 06:43 ABG pCO2 57 H (35-45) mmHg ABG pO2 77 L (83-108) mmHg ABG HCO3 35 H (21-25) mmol/L ABG Total CO2 36 H (19-24) mmol/L Carbon Dioxide 31 H (22-30) mmol/L Creatinine 0.54 L (0.66-1.25) mg/dL Glucose 161 H (74-99) mg/dL POC Glucose (mg/dL) 165 H (75-99) mg/dL Triglycerides 299 H (<150) mg/dL Microbiology - Last 24 Hours (Table) 01/17/21 11:00 Blood Culture - Preliminary Blood No Growth after 48 hours 01/17/21 11:19 Blood Culture - Preliminary Blood No Growth after 48 hours Assessment and Plan Plan: Assessment: #1. Acute on chronic hypoxic respiratory failure related to acute exacerbation of COPD, and possibility of pneumonia is not entirely excluded #2. Acute exacerbation of CHF with most recent documented normal EF and diastolic dysfunction #3. Bilateral hilar lymph nodes, likely reactive, will follow to monitor for any change #4. Altered mental status related to toxic metabolic encephalopathy #5. Hepatic encephalopathy with elevated ammonia level, improving #6. Chronic and ongoing nicotine dependence #7. History of seizure disorder #8. History of coronary artery disease with previous stenting and history of myocardial infarction #9. Chronic kidney disease #10. Anemia of chronic disease #11. History of CVA with residual left arm weakness #12. Chronic systolic CHF and ischemic heart disease #13. Obstructive sleep apnea Plan: Continue with FiO2 of 50%, dropped the PEEP down to 10 Continue current antibiotics Continue breathing treatments and steroids Chest x-ray felt to show some improvement in the appearance of bibasilar densities Cultures have been reviewed, no fever or chills, hemodynamically stable We'll discontinue metformin, discontinue lactulose Ammonia level has improved Continue Levaquin and vancomycin, continue steroids Continue TPN for nutritional support Daily interruption of sedation to assess mentation Not ready for spontaneous breathing trials yet I performed a history & physical examination of the patient and discussed their management with my nurse practitioner, Heena De La Garza. I reviewed the nurse practitioner's note and agree with the documented findings and plan of care. Lung sounds are positive for diminished breath sounds The findings and the impression was discussed with the patient. I attest to the documentation by the nurse practitioner. Time with Patient: Greater than 30
[2021-01-20] MEDS: ISOSORBIDE MONONITRATE ER 30 MG TAB.ER.24H PO SCH (11:01)
[2021-01-20 11:05] LABS: Glucose,Whole Blood 153 mg/dL (75-99)
[2021-01-20] MEDS: THEOPHYLLINE 24 HOUR 400 MG CAP.ER.24H PO SCH (11:05)
[2021-01-20] MEDS: CHLORHEXIDINE GLUCONATE 15 ML CUP MUCOUS MEM SCH ×2 (11:37→20:54)
[2021-01-20] MEDS: ASPIRIN 325 MG TAB PO SCH (11:38)
[2021-01-20] MEDS: allopurinoL 100 MG TAB PO SCH (11:38)
[2021-01-20] MEDS: CHOLESTYRAMINE (WITH SUGAR) 4 GM PACKET PO SCH (11:38)
[2021-01-20] MEDS: CLOPIDOGREL 75 MG TAB PO SCH (11:38)
[2021-01-20] MEDS: MONTELUKAST 10 MG TAB PO SCH (11:38)
[2021-01-20] MEDS: PANTOPRAZOLE 40 MG/10 ML VIAL IVP SCH (11:39)
[2021-01-20] MEDS: LORATADINE 10 MG TAB PO SCH (11:39)
[2021-01-20] MEDS: PHENYTOIN ORAL SUSP 100 MG/4 ML CUP PO SCH ×2 (11:39→20:56)
[2021-01-20] MEDS: PARoxetine 20 MG TAB PO SCH (11:39)
[2021-01-20] MEDS: PREGABALIN 100 MG CAP PO SCH ×3 (11:39→20:57)
[2021-01-20] MEDS: ATORVASTATIN 20 MG TAB PO SCH (11:39)
[2021-01-20] MEDS: SODIUM CHLORIDE 0.9% 1,000 ML IV SCH ×3 (11:41→23:36)
--- NOTE | 2021-01-20 14:46 | P.PN ---
Subjective Progress Note Date: 01/20/21 Principal diagnosis: Patient seen in follow-up in the intensive care patient is currently intubated and sedated on mechanical ventilator assist control ventilation rate of 22 at a volume of 450 FiO2 of 50% PEEP of 12 this morning gases pO2 of 77 pCO2 57 pH of 7.9 and currently 0.9 normal saline at 125 MLS per hour. Patient is sedated with Diprivan and has mild atelectasis bilateral bases. His ammonia level was 28 which is a start improvement from the 90s. Unknown history of acute exacerbation of chronic COPD, known history of coronary artery disease with stent placement previous myocardial infarctions known seizure disorder history of CVA residual left arm weakness chronic noncompliance long-term smoker. And history of alcoholism. Patient has history of previous hepatic encephalopathy as well Objective - Vital Signs Vital signs: Vital Signs Temp 98.2 F 01/20/21 04:00 Pulse 55 L 01/20/21 11:45 Resp 22 01/20/21 07:00 BP 118/72 01/20/21 07:00 Pulse Ox 95 01/20/21 07:00 Intake & Output 01/19/21 01/20/21 01/20/21 18:59 06:59 18:59 Intake Total 1926.000 592.312 122.919 Output Total 635 590 35 Balance 1291.000 2.312 87.919 Weight 106.6 kg 110.2 kg Intake: IV 1626 125 Sodium Chloride 0.9% 1, 1125 125 000 ml @ 125 mls/hr IV . Q8H [facility] Rx#:[id number] Vancomycin 1,750 mg In 501 Sodium Chloride 0.9% 500 ml 500 ml @ 167 mls/hr IVPB Q12H [facility] Rx#: [id number] Intake, IV Titration 200.000 347.312 122.919 Amount propofoL 1,000 mg In 200.000 347.312 122.919 Empty Bag 1 bag @ Titrate IV .Q0M [facility] Rx#: [id number] Oral 120 Other 100 Output: Gastric Drainage 200 Urine 435 590 35 Stool 0 Other: Voiding Method Indwelling Catheter Indwelling Catheter # Bowel Movements 0 - Exam General: Patient is intubated sedated on mechanical ventilation HEENT: [PERRL. EOMI. No pharyngeal erythema or exudate.] Neck: [No adenopathy.] Cardiac: [Heart regular in rate and rhythm. No S3. No S4. No clicks, rubs. No murmur.] Lungs: [Clear to auscultation bilaterally.] Abdomen: [No mass. No organomegaly. Bowel sounds presnt and normoactive in all 4 quadrants.] Extremes: [No edema no cyanosis no claudication normal pulses] : Normal male genitalia Musculoskeletal: [No joint erythema, edema or tenderness.] Skin: [No rash.] Neurologic: [No lateralizing deficits. CN II - XII grossly intact.] Lymphatic: [No adenopathy.] - Labs CBC & Chem 7: 01/19/21 08:16 01/20/21 04:20 Labs: Abnormal Lab Results - Last 24 Hours (Table) 01/19/21 01/20/21 01/20/21 Range/Units 18:12 00:00 04:20 ABG pCO2 (35-45) mmHg ABG pO2 (83-108) mmHg ABG HCO3 (21-25) mmol/L ABG Total CO2 (19-24) mmol/L Carbon Dioxide 31 H (22-30) mmol/L Creatinine 0.54 L (0.66-1.25) mg/dL Glucose 161 H (74-99) mg/dL POC Glucose (mg/dL) 122 H 181 H (75-99) mg/dL Triglycerides 299 H (<150) mg/dL 01/20/21 01/20/21 01/20/21 Range/Units 05:09 06:43 11:04 ABG pCO2 57 H (35-45) mmHg ABG pO2 77 L (83-108) mmHg ABG HCO3 35 H (21-25) mmol/L ABG Total CO2 36 H (19-24) mmol/L Carbon Dioxide (22-30) mmol/L Creatinine (0.66-1.25) mg/dL Glucose (74-99) mg/dL POC Glucose (mg/dL) 165 H 153 H (75-99) mg/dL Triglycerides (<150) mg/dL Microbiology - Last 24 Hours (Table) 01/17/21 11:00 Blood Culture - Preliminary Blood No Growth after 72 hours 01/17/21 11:19 Blood Culture - Preliminary Blood No Growth after 72 hours 01/18/21 00:38 Gram Stain - Final Sputum Sputum Culture - Final Assessment and Plan (1) Endotracheally intubated Current Visit: Yes Status: Acute Code(s): Z97.8 - PRESENCE OF OTHER SPECIFIED DEVICES SNOMED Code(s): 230814718 (2) Altered mental status Current Visit: Yes Status: Acute Code(s): R41.82 - ALTERED MENTAL STATUS, UNSPECIFIED SNOMED Code(s): 019501662 (3) COPD with acute exacerbation Current Visit: Yes Status: Acute Code(s): J44.1 - CHRONIC OBSTRUCTIVE PULMONARY DISEASE W (ACUTE) EXACERBATION SNOMED Code(s): 617811203 (4) Delirium due to general medical condition Current Visit: Yes Status: Acute Code(s): F05 - DELIRIUM DUE TO KNOWN PHYSIOLOGICAL CONDITION SNOMED Code(s): 7967923 (5) Encephalopathy Current Visit: Yes Status: Acute Code(s): G93.40 - ENCEPHALOPATHY, UNSPECIFIED SNOMED Code(s): 65384952 (6) Pneumonia Current Visit: Yes Status: Acute Code(s): J18.9 - PNEUMONIA, UNSPECIFIED ORGANISM SNOMED Code(s): 863848055 (7) Acute exacerbation of chronic obstructive airways disease Current Visit: No Status: Acute Code(s): J44.1 - CHRONIC OBSTRUCTIVE PULMONARY DISEASE W (ACUTE) EXACERBATION SNOMED Code(s): 901402321 (8) Acute renal failure Current Visit: No Status: Acute Code(s): N17.9 - ACUTE KIDNEY FAILURE, UNSPECIFIED SNOMED Code(s): 42076874 (9) Bilateral pneumonia Current Visit: No Status: Acute Code(s): J18.9 - PNEUMONIA, UNSPECIFIED ORGANISM SNOMED Code(s): 821554851 (10) COPD (chronic obstructive pulmonary disease) Current Visit: No Status: Acute Code(s): J44.9 - CHRONIC OBSTRUCTIVE PUL MONARY DISEASE, UNSPECIFIED SNOMED Code(s): 67507737 (11) Chronic respiratory failure Current Visit: No Status: Acute Code(s): J96.10 - CHRONIC RESPIRATORY FAILURE, UNSP W HYPOXIA OR HYPERCAPNIA SNOMED Code(s): 54549979 (12) HTN (hypertension) Current Visit: No Status: Acute Code(s): I10 - ESSENTIAL (PRIMARY) HYPERTENSION SNOMED Code(s): 95899873 (13) Hepatocellular injury Current Visit: No Status: Acute Code(s): K76.9 - LIVER DISEASE, UNSPECIFIED SNOMED Code(s): 415704671 (14) Ischemic heart disease Current Visit: No Status: Acute Code(s): I25.9 - CHRONIC ISCHEMIC HEART DISEASE, UNSPECIFIED SNOMED Code(s): 262712908 (15) Myocardial infarction Current Visit: No Status: Acute Code(s): I21.3 - ST ELEVATION (STEMI) MYOCARDIAL INFARCTION OF [facility] SITE SNOMED Code(s): 57078610 (16) Nicotine addiction Current Visit: No Status: Acute Code(s): F17.200 - NICOTINE DEPENDENCE, UNSPECIFIED, UNCOMPLICATED SNOMED Code(s): 07937652 (17) Nicotine dependence Current Visit: No Status: Acute Code(s): F17.200 - NICOTINE DEPENDENCE, UNSPECIFIED, UNCOMPLICATED SNOMED Code(s): 79347500 (18) S/P right coronary artery (RCA) stent placement Current Visit: No Status: Acute Code(s): Z95.5 - PRESENCE OF CORONARY ANGIOP LASTY IMPLANT AND GRAFT SNOMED Code(s): 86174262601594 (19) Systolic CHF, acute on chronic Current Visit: No Status: Acute Code(s): I50.23 - ACUTE ON CHRONIC SYSTOLIC (CONGESTIVE) HEART FAILURE SNOMED Code(s): 160504089 Plan: Patient is currently intubated Appropriate IV antibiotic therapy Sedated Hepatic encephalopathy correcting ammonia level currently 28 Pneumonia Cultures pending, sputum culture moderate gram-positive cocci in clusters Time with Patient: Greater than 30
[2021-01-20] MEDS ORDERED: 1: MVI, ADULT NO.4 WITH VIT K 10 ML, TRACE (CONC-1ML/DOSE) 1 ML in AMINO ACID 4.25%-D10W IV SCH ×3 (16:30)
--- NOTE | 2021-01-20 16:35 | P.PN ---
Subjective Progress Note Date: 01/20/21 Patient was seen via Tele-neurology for a follow-up. Patient still intubated. On propofol 55 mcg/g/m. Also on PEEP of 8. When the sedation is decreased, patient moves all 4 extremities. No seizures reported. Patient has not been able to be extubated because increased requirement of PEEP. Objective - Vital Signs Vital signs: Vital Signs Temp 98.2 F 01/20/21 04:00 Pulse 53 L 01/20/21 16:20 Resp 22 01/20/21 07:00 BP 118/72 01/20/21 07:00 Pulse Ox 95 01/20/21 07:00 Intake & Output 01/19/21 01/20/21 01/20/21 18:59 06:59 18:59 Intake Total 1926.000 592.312 222.919 Output Total 635 590 35 Balance 1291.000 2.312 187.919 Weight 106.6 kg 110.2 kg Intake: IV 1626 125 Sodium Chloride 0.9% 1, 1125 125 000 ml @ 125 mls/hr IV . Q8H [facility] Rx#:[id number] Vancomycin 1,750 mg In 501 Sodium Chloride 0.9% 500 ml 500 ml @ 167 mls/hr IVPB Q12H [facility] Rx#: [id number] Intake, IV Titration 200.000 347.312 222.919 Amount propofoL 1,000 mg In 200.000 347.312 222.919 Empty Bag 1 bag @ Titrate IV .Q0M [facility] Rx#: [id number] Oral 120 Other 100 Output: Gastric Drainage 200 Urine 435 590 35 Stool 0 Other: Voiding Method Indwelling Catheter Indwelling Catheter # Bowel Movements 0 - Exam Patient is sedated. Patient is on mechanical ventilation. Patient's pupils are round and reacting, corneals are present. Patient's tone is equal bilaterally. Patient does move extremities to painful stimuli. - Labs CBC & Chem 7: 01/19/21 08:16 01/20/21 04:20 Labs: Abnormal Lab Results - Last 24 Hours (Table) 01/19/21 01/20/21 01/20/21 Range/Units 18:12 00:00 04:20 ABG pCO2 (35-45) mmHg ABG pO2 (83-108) mmHg ABG HCO3 (21-25) mmol/L ABG Total CO2 (19-24) mmol/L Carbon Dioxide 31 H (22-30) mmol/L Creatinine 0.54 L (0.66-1.25) mg/dL Glucose 161 H (74-99) mg/dL POC Glucose (mg/dL) 122 H 181 H (75-99) mg/dL Triglycerides 299 H (<150) mg/dL 01/20/21 01/20/21 01/20/21 Range/Units 05:09 06:43 11:04 ABG pCO2 57 H (35-45) mmHg ABG pO2 77 L (83-108) mmHg ABG HCO3 35 H (21-25) mmol/L ABG Total CO2 36 H (19-24) mmol/L Carbon Dioxide (22-30) mmol/L Creatinine (0.66-1.25) mg/dL Glucose (74-99) mg/dL POC Glucose (mg/dL) 165 H 153 H (75-99) mg/dL Triglycerides (<150) mg/dL Microbiology - Last 24 Hours (Table) 01/17/21 11:00 Blood Culture - Preliminary Blood No Growth after 72 hours 01/17/21 11:19 Blood Culture - Preliminary Blood No Growth after 72 hours 01/18/21 00:38 Gram Stain - Final Sputum Sputum Culture - Final Assessment and Plan Assessment: * Altered mental status, likely due to toxic metabolic encephalopathy. Patient has hypercapnia, hyperammonemia, hypoxemia as a likely cause of altered mental status. * Recurrent falls of unclear etiology. Patient's states that all these episodes have occurred while sitting, he will fall to the side, almost like dozes off. He then gets up by himself. He is not passing out. Does not appear like seizures. Possible related to ?hypercapnia/hyperammonemia. * Seizure disorder, on Dilantin * COPD * CAD, CHF * History of CVA, * Hypertension * Hyperlipidemia * CAD Plan: * Patient was given Dilantin loading dose of 500 mg IV yesterday. Patient's Dilantin level this morning again came back as <3.0. We will give loading dose of Dilantin 1 g. Repeat Dilantin level in a.m. * EEG was abnormal due to background slowing of mild to moderate degree. This is suggestive of generalized cerebral dysfunction as can be seen with toxic metabolic encephalopathy due to diffuse structural brain abnormality. No epileptiform activity was seen. * Patient had a carotid Doppler on 05/13/2020, which revealed antegrade flow in both vertebral arteries. There is bilateral plaque formation in the carotid artery bifurcations. Images and measurement suggest less than 25% stenosis in both ICA. No need to repeat. * Patient had a 2-D echo on 05/19/2020, which revealed normal left-ventricular size. Moderate concentric LVH. EF is between 50-55%. Mild to moderately enlarged right ventricle. * Patient states that he is compliant with the medication. Currently on Dilantin 200 mg twice a day. With his liver dysfunction, Dilantin may be slightly concerning. Discussed with patient's about switching to Keppra. She is not sure if patient has tried it before or not. She wants him to stay on Dilantin. Patient's was recommended to have patient follow-up with the neurologist as outpatient to consider switching to another medication, if po ssible.
[2021-01-20] MEDS ORDERED: PHENYTOIN SODIUM INJ 1,000 MG in SODIUM CHLORIDE 0.9% 100 ML IVPB STA (16:38)
[2021-01-20 17:35] LABS: Glucose,Whole Blood 193 mg/dL (75-99)
[2021-01-20] MEDS: 1: MVI, ADULT NO.4 WITH VIT K 10 ML, TRACE (CONC-1ML/DOSE) 1 ML in AMINO ACID 4.25%-D10W IV SCH ×3 (19:55)
[2021-01-20] MEDS: LEVOFLOXACIN 750MG-D5W PMX 750 MG in DEXTROSE/WATER 1 150ML.BAG IVPB SCH (20:05)
[2021-01-20 23:35] LABS: Glucose,Whole Blood 209 mg/dL (75-99)
[2021-01-21] MEDS: IPRATROPIUM-ALBUTEROL 3 ML NEB INHALATION SCH ×6 (01:45→21:22)
[2021-01-21 04:42] LABS: Basophils % (A) 0 %; Eosinophils # (A) 0.1 k/uL (0-0.7); Eosinophils % (A) 2 %; HCT 45.6 % (39.0-53.0); HGB 14.9 gm/dL (13.0-17.5); Hypochromasia Moderate; Lymphocytes # (A) 0.8 k/uL (1.0-4.8); Lymphocytes % (A) 11 %; MCH 34.1 pg (25.0-35.0); MCHC 32.6 g/dL (31.0-37.0); MCV 104.6 fL (80.0-100.0); Macrocytosis Moderate; Mean Platelet Volume 8.2; Monocytes # (A) 0.4 k/uL (0-1.0); Monocytes % (A) 5 %; Neutrophils % (A) 82 %; Platelet Count 143 k/uL (150-450); RBC 4.36 m/uL (4.30-5.90); RDW 14.9 % (11.5-15.5); WBC 7.3 k/uL (3.8-10.6)
[2021-01-21 04:51] LABS: African American GFR (CKD) >90 (>60 ml/min/1.73 sqM); Anion Gap 2 mmol/L; Blood Urea Nitrogen 14 mg/dL (9-20); Calcium 8.3 mg/dL (8.4-10.2); Carbon Dioxide 29 mmol/L (22-30); Chloride 109 mmol/L (98-107); Glucose 190 mg/dL (74-99); Non-African American GFR(CKD) >90 (>60 ml/min/1.73 sqM); Phosphorus 3.5 mg/dL (2.5-4.5); Potassium 4.2 mmol/L (3.5-5.1); Sodium 140 mmol/L (137-145)
[2021-01-21 05:48] LABS: ABG Base Excess 6.9 mmol/L; ABG HCO3 32 mmol/L (21-25); ABG Oxygen Saturation 93.9 % (94-97); ABG PCO2 57 mmHg (35-45); ABG PH 7.36 (7.35-7.45); ABG PO2 72 mmHg (83-108); ABG TCO2 34 mmol/L (19-24); Allen Test Performed? Yes
[2021-01-21] MEDS: INSULIN ASPART (NovoLOG) 100 UNIT/ML VIAL SQ SCH ×4 (05:50→23:06)
[2021-01-21] MEDS: methylPREDNISolone SOD SUCCI 125 MG/2 ML VIAL IV SCH ×4 (05:50→22:51)
[2021-01-21] MEDS: SODIUM CHLORIDE 0.9% 1,000 ML IV SCH ×3 (07:07→22:44)
--- NOTE | 2021-01-21 07:09 | XR ---
EXAMINATION TYPE: XR chest 1V portable DATE OF EXAM: 01/21/2021 COMPARISON: Chest x-ray 01/20/2021 HISTORY: Intubated TECHNIQUE: Single frontal view of the chest is obtained. FINDINGS: Endotracheal tube, NG tube, left-sided PICC line are overlying appropriate positions. Biba silar density persists, the heart is enlarged. No evident pneumothorax. Interstitium is increased. IMPRESSION: Findings are similar to prior exam. Correlate for pneumonia, congestive heart failure, i nterstitial lung disease, there is cardiomegaly
[2021-01-21] MEDS: METOPROLOL TARTRATE 25 MG TAB PO SCH ×2 (08:50→20:01)
[2021-01-21] MEDS: CLOPIDOGREL 75 MG TAB PO SCH (09:01)
[2021-01-21] MEDS: PANTOPRAZOLE 40 MG/10 ML VIAL IVP SCH (09:01)
[2021-01-21] MEDS: CHLORHEXIDINE GLUCONATE 15 ML CUP MUCOUS MEM SCH ×2 (09:01→19:35)
[2021-01-21] MEDS: PHENYTOIN ORAL SUSP 100 MG/4 ML CUP PO SCH ×2 (09:01→20:02)
[2021-01-21] MEDS: THEOPHYLLINE 24 HOUR 400 MG CAP.ER.24H PO SCH (09:01)
[2021-01-21] MEDS: ATORVASTATIN 20 MG TAB PO SCH (09:01)
[2021-01-21] MEDS: PARoxetine 20 MG TAB PO SCH (09:01)
[2021-01-21] MEDS: PREGABALIN 100 MG CAP PO SCH ×3 (09:02→20:03)
[2021-01-21] MEDS: ASPIRIN 325 MG TAB PO SCH (09:03)
[2021-01-21] MEDS: CHOLESTYRAMINE (WITH SUGAR) 4 GM PACKET PO SCH (09:03)
[2021-01-21] MEDS: LORATADINE 10 MG TAB PO SCH (09:03)
[2021-01-21] MEDS: ISOSORBIDE MONONITRATE ER 30 MG TAB.ER.24H PO SCH (09:03)
[2021-01-21] MEDS: MONTELUKAST 10 MG TAB PO SCH (09:03)
[2021-01-21] MEDS: allopurinoL 100 MG TAB PO SCH (09:03)
[2021-01-21] MEDS: LACTULOSE 20 GM/30 ML CUP PO SCH ×2 (10:26→20:01)
[2021-01-21 10:33] LABS: ABG Base Excess 5.7 mmol/L; ABG HCO3 31 mmol/L (21-25); ABG PCO2 54 mmHg (35-45); ABG PH 7.37 (7.35-7.45); ABG PO2 81 mmHg (83-108); ABG TCO2 33 mmol/L (19-24); Allen Test Performed? Yes
[2021-01-21] MEDS ORDERED: LORazepam 2 MG/ML INJ IV PRN (10:41)
[2021-01-21 11:57] LABS: Glucose,Whole Blood 169 mg/dL (75-99)
[2021-01-21] MEDS: 1: MVI, ADULT NO.4 WITH VIT K 10 ML, TRACE (CONC-1ML/DOSE) 1 ML in AMINO ACID 4.25%-D10W IV SCH ×3 (12:02)
[2021-01-21] MEDS: VANCOMYCIN 1,750 MG in SODIUM CHLORIDE 0.9% 500 ML 500 ML IVPB SCH ×2 (12:03→23:01)
--- NOTE | 2021-01-21 12:32 | P.PN ---
Subjective Progress Note Date: 01/21/21 Principal diagnosis: Acute on chronic hypoxic respiratory failure, multifactorial. 60-year-old white male patient with past medical history of COPD, chronic and ongoing history of tobacco dependence, coronary artery disease, previous history of myocardial infarction, previous placement of cardiac stents, seizure disorder, history of CVA with residual left arm weakness, chronic hypoxic respiratory failure and patient usually wears 3 L of oxygen at home who came into the emergency department on 01/17/2021 for evaluation of altered mental status, and worsening shortness of breath. Patient was quite lethargic and his could not arouse him in the morning and called EMS. Patient did become arousable but lethargic as EMS transferring him to the ER. His chest x-ray show ed cardiomegaly and chronic changes with diminished inspiration and elevated left hemidiaphragm, and persistent right mid and lower lung opacities the clinic reflect residual acute infiltrates. He tested negative for COVID 19. CT of the brain and cervical spine showed no acute intracranial hemorrhage or midline shift, and no acute fracture or dislocation of the cervical spine. His admission blood work showed no evidence of leukocytosis, he is 1.0, was 9.9, hemoglobin was 16.9, hematocrit was elevated at 54.1, d-dimer was mildly elevated at 0.79 and CTA chest was completed showing no evidence of central saddle pulmonary embolism, however this was a suboptimal study, and smaller segmental subsegmental PEs could not be excluded, there was prominent cardiomegaly, and new tiny bilateral pleural effusions and scattered areas of atelectasis and/or consolidation bilaterally. There was new bilateral hilar adenopathy, and possible acute infectious process and CHF. Patient was initially placed on high flow nasal cannula, he was started on breathing treatments, diuretics, steroids, and antibiotics, as a day when he continued to be short of breath, and eventually was intubated and placed on mechanical ventilator and transferred to the intensive care unit, this morning he remains intubated and sedated, currently on assist control mode of ventilation with a rate of 24, multivitamins 450, FiO2 100%, and PEEP of 14, this was blood gases show pO2 of 87, pCO2 of 59, and pH of 7.43. He is currently on 0.9 normal saline at KVO, and improving and is currently at 30 weeks per kilo per minute, he is in sinus mechanism, he is not requiring any vasopressor support, current antibiotic coverage is Levaquin, patient's microbiology results from previous admissions has been reviewed and there is evidence of Enterobacter and Klebsiella pneumonia in his sputum cultures from previous admissions. Today's lab work has been reviewed showing white blood count 8.3, hemoglobin of 14.6, platelet count of 173, CO2 of 36, the rest of the electrolytes and renal profile were unremarkable, alkaline phosphatase is 185, otherwise AST and OT were within normal limits. On 01/19/2021 patient seen in follow-up in the intensive care unit, he remains intubated, sedated on mechanical ventilator, on assist control mode of ventilation with a rate of 22, tidal is 450, FiO2 of 40% and PEEP of 16, this was blood gas shows pO2 of 70, pCO2 59, and pH is 7.42, chest x-ray today shows bibasilar increased density and it is difficult to exclude small effusions, no evident pneumothorax, ET tube, orogastric tube, PICC line are in appropriate positions. Not on any vasoactive drips, not on any vasopressor support, he remains on combination of vancomycin and Levaquin for antibiotic coverage for possibility of pneumonia, blood and sputum cultures have been sent and are pending, so far showing no growth. Today's labs have been reviewed showing a white blood cell count is 7.4, hemoglobin of 14.2, sodium is 145, potassium 4.2, chloride is 108, CO2 is 36, B1 of 18, creatinine 0.65, alkaline phosphatase is improving and is down to 165, AST is 14, ALT is 11. Patient has been getting intermittent doses of Lasix, is however in positive fluid balance. No acute events overnight. Is producing urine in the order of 25-30 ML per hour. On 01/20/2021 patient seen in follow-up in intensive care unit, he remains intubated, sedated on mechanical ventilator, with assist control mode of ventilation rate of 22, tidal volume was 450, and FiO2 of 50% PEEP of 12, this morning's blood gas shows pO2 of 77, pCO2 57, and pH of 7.39, patient is currently on 0.9 normal saline at a rate of 125 ML per hour, Diprivan is a 55 mics per kilo per minute and TPN is at 30 ML per hour, today's chest x-ray shows improvement in the appearance of left lower lobe atelectasis or infiltrates, and there is prominent interstitium and patchy bilateral airspace disease. Hemodynamically patient is stable, in sinus mechanism with a rate of 50 BPM, not on any vasopressor support. Neurology is following with the patient for altered mental status, history of seizures, and feels that his altered mentation is related to toxic metabolic encephalopathy which is multifactorial. EEG was completed showing background slowing of [id number] degree, this is suggestive of generalized cerebral dysfunction seen in toxic metabolic enc ephalopathy or due to diffuse structural brain abnormality. No epileptiform activity was seen. In terms of his pneumonia patient remains on a combination of Levaquin and vancomycin, and blood and sputum cultures are pending, sputum preliminary culture shows rare epithelial cells, rare white blood cells, and moderate gram-positive cocci in clusters. Final culture is pending. Preliminary blood culture is still in progress. The blood work has been reviewed, white blood cell, 7.4, hemoglobin is 14.2. Sodium is 140, potassium is 4.1, chloride is 105, CO2 is 31, BUN of 15 and creatinine 0.51, ammonia level on yesterday's labs was improving and was down to 23. Patient remains on antibiotics as mentioned above, IV Solu-Medrol 60 mg every 6 hours, breathing treatments Patient was reevaluated today on 01/21/2021, remains in the ICU, intubated and sedated. He is now on assist control rate of 22 tidal volume is 450 FiO2 50% and PEEP of 8. ABG showed a pO2 of 72 pCO2 of 57 pH of 7.36. Patient was noted to be on propofol at 55 pg/kg/m, his ammonia level is rising a bit, hence lactulose will be restarted. His IV fluid is 0.9 normal saline at 125 per hour, and the patient is receiving TPN. Patient was intubated on 01/17. He is arousable in spite of sedation, and I plan today to hold sedation, and possibly give the patient a trial of pressure support, CPAP, consider repeating ABG, and consider extubating the patient if he does well. If extubated I will strongly recommend extubating the patient to BiPAP. Chest x-ray showed similar findings, patient may have some congestive heart failure with interstitial lung disease and possible underlying pneumonia. Patient remains on antibiotics, bronchodilators, and diuretics. Ammonia level today is 39. Lites and renal profile are normal today. ABG on pressure support of 12 and CPAP showed a pO2 of 81 pCO2 of 54 pH of 7.37 and this was on 50% FiO2. Objective - Vital Signs Vital signs: Vital Signs Temp 97.6 F 01/21/21 08:00 Pulse 65 01/21/21 11:51 Resp 12 01/21/21 10:00 BP 140/95 01/21/21 10:00 Pulse Ox 96 01/21/21 10:00 Intake & Output 01/20/21 01/21/21 01/21/21 18:59 06:59 18:59 Intake Total 9713.970 6982.351 314.090 Output Total 760 760 60 Balance 0658.628 7530.351 254.090 Weight 113.4 kg Intake: IV 1650 2685 185 Levofloxacin 750Mg-D5w 150 150 Pmx 750 mg In Dextrose/ Water 1 150ml.bag @ 100 mls/hr IVPB Q24H [facility] Rx#: [id number] Mvi, Adult No.4 with Vit 660 60 K 10 ml Trace (Conc-1Ml/ Dose) 1 ml In Amino Acid 4.25%-D10w+Lytes*E* 1,000 ml @ 60 mls/hr IV .BY DURATION [facility] Rx#: [id number] Sodium Chloride 0.9% 1, 1500 1375 125 000 ml @ 125 mls/hr IV . Q8H [facility] Rx#:[id number] Vancomycin 1,750 mg In 500 Sodium Chloride 0.9% 500 ml 500 ml @ 167 mls/hr IVPB Q12H [facility] Rx#: [id number] Intake, IV Titration 322.919 252.351 129.090 Amount propofoL 1,000 mg In 322.919 252.351 129.090 Empty Bag 1 bag @ Titrate IV .Q0M [facility] Rx#: [id number] Output: Urine 760 760 60 Other: Voiding Method Indwelling Catheter Indwelling Catheter - Exam GENERAL EXAM: 60-year-old white male, sedated, intubated on assist control mode of ventilation HEENT: PERRLA, EOMI, anicteric, no neck masses, no JVD, endotracheal tube and orogastric tube are intact. CHEST: No chest wall deformity. Symmetrical expansion. LUNGS: Symmetrical chest expansion crackles at the bases no rhonchi no wheezes. CVS: Regular rate and rhythm, normal S1 and S2, no gallops, no murmurs, no rubs ABDOMEN: Soft, nontender. No hepatosplenomegaly, normal bowel sounds, no guarding or rigidity. EXTREMITIES: No clubbing, no edema, no cyanosis, 2+ pulses and upper and lower extremities. MUSCULOSKELETAL: No deformities, could not assess range of motion. SKIN: No rashes CENTRAL NERVOUS SYSTEM: Sedated, minimally arousable in spite of sedation. - Labs CBC & Chem 7: 01/21/21 04:15 01/21/21 04:15 Labs: Abnormal Lab Results - Last 24 Hours (Table) 01/20/21 01/20/21 01/21/21 Range/Units 17:33 23:33 04:15 MCV (80.0-100.0) fL Plt Count (150-450) k/uL Lymphocytes # (1.0-4.8) k/uL ABG pCO2 (35-45) mmHg ABG pO2 (83-108) mmHg ABG HCO3 (21-25) mmol/L ABG Total CO2 (19-24) mmol/L ABG O2 Saturation (94-97) % Chloride 109 H (98-107) mmol/L Creatinine 0.46 L (0.66-1.25) mg/dL Glucose 190 H (74-99) mg/dL POC Glucose (mg/dL) 193 H 209 H (75-99) mg/dL Calcium 8.3 L (8.4-10.2) mg/dL Ammonia (<30) umol/L 01/21/21 01/21/21 01/21/21 Range/Units 04:15 04:15 05:40 MCV 104.6 H (80.0-100.0) fL Plt Count 143 L (150-450) k/uL Lymphocytes # 0.8 L (1.0-4.8) k/uL ABG pCO2 57 H (35-45) mmHg ABG pO2 72 L (83-108) mmHg ABG HCO3 32 H (21-25) mmol/L ABG Total CO2 34 H (19-24) mmol/L ABG O2 Saturation 93.9 L (94-97) % Chloride (98-107) mmol/L Creatinine (0.66-1.25) mg/dL Glucose (74-99) mg/dL POC Glucose (mg/dL) (75-99) mg/dL Calcium (8.4-10.2) mg/dL Ammonia 39 H (<30) umol/L 01/21/21 01/21/21 Range/Units 10:30 11:55 MCV (80.0-100.0) fL Plt Count (150-450) k/uL Lymphocytes # (1.0-4.8) k/uL ABG pCO2 54 H (35-45) mmHg ABG pO2 81 L (83-108) mmHg ABG HCO3 31 H (21-25) mmol/L ABG Total CO2 33 H (19-24) mmol/L ABG O2 Saturation (94-97) % Chloride (98-107) mmol/L Creatinine (0.66-1.25) mg/dL Glucose (74-99) mg/dL POC Glucose (mg/dL) 169 H (75-99) mg/dL Calcium (8.4-10.2) mg/dL Ammonia (<30) umol/L Microbiology - Last 24 Hours (Table) 01/17/21 11:00 Blood Culture - Preliminary Blood No Growth after 72 hours 01/17/21 11:19 Blood Culture - Preliminary Blood No Growth after 72 hours 01/18/21 00:38 Gram Stain - Final Sputum Sputum Culture - Final Assessment and Plan Assessment: Impression: Acute on chronic hypoxic respiratory failure, mostly secondary to acute exacerbation of COPD, and possible community-acquired pneumonia involving mostly the left lower lobe. Possibly some component of acute diastolic congestive heart failure. Acute diastolic congestive heart failure is suspected. Bilateral reactive lymphadenopathy. Acute metabolic encephalopathy. Acute hepatic encephalopathy with elevated ammonia level. History of seizure disorder. Ongoing nicotine dependence. History of coronary artery disease and previous stenting with previous [place]. Chronic kidney disease. Anemia of chronic disease. History of CVA with left arm weakness. Obstructive sleep apnea syndrome. Recommendation: Continue ventilatory support for now. However will give the patient a weaning trial today. And if he passes the weaning trial on pressure support and CPAP company extubated the patient to CPAP. Continue present antibiotics. Continue bronchodilators and steroids. Continue diuretics. Continue TPN for nutritional support unless the patient is extubated today. Daily interruption of sedation and the patient is not extubated today. Continue GI and DVT prophylaxis. Resume cardiac meds. Resume seizure medications. Awaiting final report from his sputum cultures. Patient did have moderate gram- positive cocci in clusters, but from the looks of it there is no staph aureus cultured. Reevaluate antibiotics and readjust antibiotics in the next 24 hours Patient remains critically ill. Critical care time is over 30 minutes. Time with Patient: Greater than 30
--- NOTE | 2021-01-21 13:17 | P.PN ---
Subjective Progress Note Date: 01/21/21 Principal diagnosis: Wheezing shortness of breath 01/21/2021 patient resting in bed alert and oriented S patient is recently been extubated to BiPAP 40%. Patient with known history of chronic COPD, coronary artery disease stent placement, seizure disorder with history of CVA residual left-sided arm weakness and chronic noncompliance long-term smoker. Vital signs stable blood pressure 140/95, maintain action saturating 96% onset BiPAP. Most recent lab work WBC count 7.3, hemoglobin of 14.9, hematocrit 45.6, platelet count 143. Chemistry 140, potassium 4.2, ROBERT of 14, creatinine 0.46, ammonia of 39 in which lactulose is been ordered. This morning's x-ray similar to prior correlate for pneumonia, congestive heart failure, interstitial lung disease with noted cardiomegaly. Patient IV antibiotics of Levaquin and vancomycin. Continues on IV steroids and covered under PPI with Protonix. Objective - Vital Signs Vital signs: Vital Signs Temp 97.6 F 01/21/21 08:00 Pulse 65 01/21/21 11:51 Resp 12 01/21/21 10:00 BP 140/95 01/21/21 10:00 Pulse Ox 96 01/21/21 10:00 Intake & Output 01/20/21 01/21/21 01/21/21 18:59 06:59 18:59 Intake Total 1449.845 1897.351 314.090 Output Total 760 760 60 Balance 5370.426 1791.351 254.090 Weight 113.4 kg Intake: IV 1650 2685 185 Levofloxacin 750Mg-D5w 150 150 Pmx 750 mg In Dextrose/ Water 1 150ml.bag @ 100 mls/hr IVPB Q24H [facility] Rx#: [id number] Mvi, Adult No.4 with Vit 660 60 K 10 ml Trace (Conc-1Ml/ Dose) 1 ml In Amino Acid 4.25%-D10w+Lytes*E* 1,000 ml @ 60 mls/hr IV .BY DURATION [facility] Rx#: [id number] Sodium Chloride 0.9% 1, 1500 1375 125 000 ml @ 125 mls/hr IV . Q8H [facility] Rx#:[id number] Vancomycin 1,750 mg In 500 Sodium Chloride 0.9% 500 ml 500 ml @ 167 mls/hr IVPB Q12H [facility] Rx#: [id number] Intake, IV Titration 322.919 252.351 129.090 Amount propofoL 1,000 mg In 322.919 252.351 129.090 Empty Bag 1 bag @ Titrate IV .Q0M [facility] Rx#: [id number] Output: Urine 760 760 60 Other: Voiding Method Indwelling Catheter Indwelling Catheter - Exam GENERAL: Well-appearing, well-nourished and in no acute distress. Currently on BiPAP 40% as he was recently extubated. HEAD: Atraumatic, normocephalic. EYES: Pupils equal round and reactive to light, extraocular movements intact, s clera anicteric, conjunctiva are normal. ENT:nares patent, oropharynx clear without exudates. Moist mucous membranes. NECK: Normal range of motion, supple without lymphadenopathy or JVD, no thyromegaly LUNGS: Breath sounds clear to auscultation bilaterally and equal. No wheezes rales or rhonchi. HEART: Regular rate and rhythm without murmurs, rubs or gallops.S1S2 Normal ABDOMEN: Soft, nontender, normoactive bowel sounds. No guarding, no rebound. No masses appreciated. Bowel management system in place EXTREMITIES: Normal range of motion, no pitting or edema. No clubbing or cyanosis. NEUROLOGICAL: Cranial nerves II through XII grossly intact. Normal speech PSYCH: Normal mood, normal affect. SKIN: Warm, Dry, normal turgor, no rashes or lesions noted. Genitourinary: Cardoso catheter in place with clear yellow urine - Labs CBC & Chem 7: 01/21/21 04:15 01/21/21 04:15 Labs: Abnormal Lab Results - Last 24 Hours (Table) 01/20/21 01/20/21 01/21/21 Range/Units 17:33 23:33 04:15 MCV (80.0-100.0) fL Plt Count (150-450) k/uL Lymphocytes # (1.0-4.8) k/uL ABG pCO2 (35-45) mmHg ABG pO2 (83-108) mmHg ABG HCO3 (21-25) mmol/L ABG Total CO2 (19-24) mmol/L ABG O2 Saturation (94-97) % Chloride 109 H (98-107) mmol/L Creatinine 0.46 L (0.66-1.25) mg/dL Glucose 190 H (74-99) mg/dL POC Glucose (mg/dL) 193 H 209 H (75-99) mg/dL Calcium 8.3 L (8.4-10.2) mg/dL Ammonia (<30) umol/L 01/21/21 01/21/21 01/21/21 Range/Units 04:15 04:15 05:40 MCV 104.6 H (80.0-100.0) fL Plt Count 143 L (150-450) k/uL Lymphocytes # 0.8 L (1.0-4.8) k/uL ABG pCO2 57 H (35-45) mmHg ABG pO2 72 L (83-108) mmHg ABG HCO3 32 H (21-25) mmol/L ABG Total CO2 34 H (19-24) mmol/L ABG O2 Saturation 93.9 L (94-97) % Chloride (98-107) mmol/L Creatinine (0.66-1.25) mg/dL Glucose (74-99) mg/dL POC Glucose (mg/dL) (75-99) mg/dL Calcium (8.4-10.2) mg/dL Ammonia 39 H (<30) umol/L 01/21/21 01/21/21 Range/Units 10:30 11:55 MCV (80.0-100.0) fL Plt Count (150-450) k/uL Lymphocytes # (1.0-4.8) k/uL ABG pCO2 54 H (35-45) mmHg ABG pO2 81 L (83-108) mmHg ABG HCO3 31 H (21-25) mmol/L ABG Total CO2 33 H (19-24) mmol/L ABG O2 Saturation (94-97) % Chloride (98-107) mmol/L Creatinine (0.66-1.25) mg/dL Glucose (74-99) mg/dL POC Glucose (mg/dL) 169 H (75-99) mg/dL Calcium (8.4-10.2) mg/dL Ammonia (<30) umol/L Microbiology - Last 24 Hours (Table) 01/17/21 11:00 Blood Culture - Preliminary Blood No Growth after 72 hours 01/17/21 11:19 Blood Culture - Preliminary Blood No Growth after 72 hours 01/18/21 00:38 Gram Stain - Final Sputum Sputum Culture - Final Assessment and Plan (1) Acute and chronic respiratory failure Current Visit: Yes Status: Acute Code(s): J96.20 - ACUTE AND CHR RESP FAILURE, UNSP W HYPOXIA OR HYPERCAPNIA SNOMED Code(s): 43012815 (2) Acute metabolic encephalopathy Current Visit: Yes Status: Acute Code(s): G93.41 - METABOLIC ENCEPHALOPATHY SNOMED Code(s): 83575274 (3) History of seizure disorder Current Visit: Yes Status: Acute Code(s): Z86.69 - PERSONAL HISTORY OF DIS OF THE NERVOUS SYS AND SENSE ORGANS SNOMED Code(s): 740575797 (4) Chronic kidney disease Current Visit: Yes Status: Acute Code(s): N18.9 - CHRONIC KIDNEY DISEASE, UNSPECIFIED SNOMED Code(s): 088133513 (5) Anemia of chronic disease Current Visit: Yes Status: Acute Code(s): D63.8 - ANEMIA IN OTHER CHRONIC DISEASES CLASSIFIED ELSEWHERE SNOMED Code(s): 233434295 (6) History of home oxygen therapy Current Visit: Yes Status: Acute Code(s): Z99.81 - DEPENDENCE ON SUPPLEMENTAL OXYGEN SNOMED Code(s): 112174087 (7) Altered mental status Current Visit: Yes Status: Acute Code(s): R41.82 - ALTERED MENTAL STATUS, UNSPECIFIED SNOMED Code(s): 017933212 (8) COPD with acute exacerbation Current Visit: Yes Status: Acute Code(s): J44.1 - CHRONIC OBSTRUCTIVE PULMONARY DISEASE W (ACUTE) EXACERBATION SNOMED Code(s): 434284699 (9) Congestive heart failure Current Visit: Yes Status: Acute Code(s): I50.9 - HEART FAILURE, UNSPECIFIED SNOMED Code(s): 18577783 (10) Pneumonia Current Visit: Yes Status: Acute Code(s): J18.9 - PNEUMONIA, UNSPECIFIED ORGANISM SNOMED Code(s): 532145548 (11) COPD (chronic obstructive pulmonary disease) Current Visit: No Status: Acute Code(s): J44.9 - CHRONIC OBSTRUCTIVE PULMONARY DISEASE, UNSPECIFIED SNOMED Code(s): 44032150 (12) Hypoxia Current Visit: No Status: Acute Code(s): R09.02 - HYPOXEMIA SNOMED Cod e(s): 236782905 (13) Nicotine dependence Current Visit: No Status: Acute Code(s): F17.200 - NICOTINE DEPENDENCE, UNSPECIFIED, UNCOMPLICATED SNOMED Code(s): 33109033 (14) Systolic CHF, acute on chronic Current Visit: No Status: Acute Code(s): I50.23 - ACUTE ON CHRONIC SYSTOLIC (CONGESTIVE) HEART FAILURE SNOMED Code(s): 111642277 Plan: 1. Continue on BiPAP maintain oxygen saturations greater than 90 2. Continue with IV antibiotics of Levaquin and vancomycin. 3. Lactulose for rising ammonia levels 4. Continue IV steroids 5. We'll continue with Protonix for PPI coverage 6. Continue with cardiac and seizure medications 7. Continue DVT prophylaxis 8. We'll order lab work for tomorrow 9. We'll continue to monitor vitals and labs treat accordingly. 10. We'll reevaluate again tomorrow. Time with Patient: Greater than 30
[2021-01-21 17:20] LABS: Glucose,Whole Blood 146 mg/dL (75-99)
[2021-01-21] MEDS: LEVOFLOXACIN 750MG-D5W PMX 750 MG in DEXTROSE/WATER 1 150ML.BAG IVPB SCH (19:58)
[2021-01-21] MEDS: QUEtiapine 50 MG TAB PO SCH (22:51)
[2021-01-21 23:05] LABS: Glucose,Whole Blood 166 mg/dL (75-99)
--- NOTE | 2021-01-21 23:06 | P.PN ---
Subjective Progress Note Date: 01/21/21 Patient was seen via Tele-neurology for a follow-up. Patient is now extubated. He is doing very well. Offers no complaints. Patient states that he has not had any seizures since 2016 oh 2017. He had previously tried Keppra, but produced behavioral problems and made him "wild". Objective - Vital Signs Vital signs: Vital Signs Temp 98.6 F 01/21/21 20:00 Pulse 70 01/21/21 21:41 Resp 18 01/21/21 20:00 BP 113/77 01/21/21 20:00 Pulse Ox 90 L 01/21/21 20:00 Intake & Output 01/21/21 01/21/21 01/22/21 06:59 18:59 06:59 Intake Total 2937.351 2660.090 530 Output Total 760 3715 720 Balance 2177.351 -1054.910 -190 Weight 113.4 kg Intake: IV 2685 2531 530 Levofloxacin 750Mg-D5w 150 100 Pmx 750 mg In Dextrose/ Water 1 150ml.bag @ 100 mls/hr IVPB Q24H [facility] Rx#: [id number] Mvi, Adult No.4 with Vit 660 780 180 K 10 ml Trace (Conc-1Ml/ Dose) 1 ml In Amino Acid 4.25%-D10w+Lytes*E* 1,000 ml @ 60 mls/hr IV .BY DURATION [facility] Rx#: [id number] Sodium Chloride 0.9% 1, 1375 1125 250 000 ml @ 125 mls/hr IV . Q8H [facility] Rx#:[id number] Vancomycin 1,750 mg In 500 626 Sodium Chloride 0.9% 500 ml 500 ml @ 167 mls/hr IVPB Q12H [facility] Rx#: [id number] Intake, IV Titration 252.351 129.090 Amount propofoL 1,000 mg In 252.351 129.090 Empty Bag 1 bag @ Titrate IV .Q0M [facility] Rx#: [id number] Output: Urine 760 3715 720 Other: Voiding Method Indwelling Catheter Indwelling Catheter Indwelling Catheter - Exam Patient is extubated. He is alert and awake, normal mentation. Speech and language functions are normal. Muscle strength is normal. No ataxia. - Labs CBC & Chem 7: 01/21/21 04:15 01/21/21 04:15 Labs: Abnormal Lab Results - Last 24 Hours (Table) 01/20/21 01/21/21 01/21/21 Range/Units 23:33 04:15 04:15 MCV 104.6 H (80.0-100.0) fL Plt Count 143 L (150-450) k/uL Lymphocytes # 0.8 L (1.0-4.8) k/uL ABG pCO2 (35-45) mmHg ABG pO2 (83-108) mmHg ABG HCO3 (21-25) mmol/L ABG Total CO2 (19-24) mmol/L ABG O2 Saturation (94-97) % Chloride 109 H (98-107) mmol/L Creatinine 0.46 L (0.66-1.25) mg/dL Glucose 190 H (74-99) mg/dL POC Glucose (mg/dL) 209 H (75-99) mg/dL Calcium 8.3 L (8.4-10.2) mg/dL Ammonia (<30) umol/L 01/21/21 01/21/21 01/21/21 Range/Units 04:15 05:40 10:30 MCV (80.0-100.0) fL Plt Count (150-450) k/uL Lymphocytes # (1.0-4.8) k/uL ABG pCO2 57 H 54 H (35-45) mmHg ABG pO2 72 L 81 L (83-108) mmHg ABG HCO3 32 H 31 H (21-25) mmol/L ABG Total CO2 34 H 33 H (19-24) mmol/L ABG O2 Saturation 93.9 L (94-97) % Chloride (98-107) mmol/L Creatinine (0.66-1.25) mg/dL Glucose (74-99) mg/dL POC Glucose (mg/dL) (75-99) mg/dL Calcium (8.4-10.2) mg/dL Ammonia 39 H (<30) umol/L 01/21/21 01/21/21 Range/Units 11:55 17:18 MCV (80.0-100.0) fL Plt Count (150-450) k/uL Lymphocytes # (1.0-4.8) k/uL ABG pCO2 (35-45) mmHg ABG pO2 (83-108) mmHg ABG HCO3 (21-25) mmol/L ABG Total CO2 (19-24) mmol/L ABG O2 Saturation (94-97) % Chloride (98-107) mmol/L Creatinine (0.66-1.25) mg/dL Glucose (74-99) mg/dL POC Glucose (mg/dL) 169 H 146 H (75-99) mg/dL Calcium (8.4-10.2) mg/dL Ammonia (<30) umol/L Microbiology - Last 24 Hours (Table) 01/17/21 11:00 Blood Culture - Preliminary Blood No Growth after 96 hours 01/17/21 11:19 Blood Culture - Preliminary Blood No Growth after 96 hours Assessment and Plan Assessment: * Altered mental status, likely due to toxic metabolic encephalopathy. Patient has hypercapnia, hyperammonemia, hypoxemia as a likely cause of altered mental status. * Recurrent falls of unclear etiology. Patient's states that all these episodes have occurred while sitting, he will fall to the side, almost like dozes off. He then gets up by himself. He is not passing out. Does not appear like seizures. Possible related to ?hypercapnia/hyperammonemia. * Seizure disorder, on Dilantin. Patient has not had any seizures since 2017 oh 2018. * COPD * CAD, CHF * History of CVA, * Hypertension * Hyperlipidemia * CAD Plan: * Patient was given a Dilantin load of 1000 mg last night. Today the Dilantin level is 9.2. As per patient statement, he has not had any seizure since 2017 or 2018. We will just keep him on same dose of Dilantin 200 mg twice a day. Patient previously had tried Keppra, but produces behavioral problems and made him "wild". Patient was recommended to follow-up with a neurologist for management of his seizure disorder. * EEG was abnormal due to background slowing of mild to moderate degree. This is suggestive of generalized cerebral dysfunction as can be seen with toxic metabolic encephalopathy due to diffuse structural brain abnormality. No epileptiform activity was seen. * Patient had a carotid Doppler on 05/13/2020, which revealed antegrade flow in both vertebral arteries. There is bilateral plaque formation in the carotid artery bifurcations. Images and measurement suggest less than 25% stenosis in both ICA. No need to repeat. * Patient had a 2-D echo on 05/19/2020, which revealed normal left-ventricular size. Moderate concentric LVH. EF is between 50-55%. Mild to moderately enlarged right ventricle. * Neurologically clear. Please reconsult neurology if any other concerns.
[2021-01-22 03:53] LABS: Basophils % (A) 0 %; Eosinophils # (A) 0.1 k/uL (0-0.7); Eosinophils % (A) 1 %; HCT 47.4 % (39.0-53.0); HGB 15.6 gm/dL (13.0-17.5); Hypochromasia Slight; Lymphocytes # (A) 0.8 k/uL (1.0-4.8); Lymphocytes % (A) 10 %; MCH 34.2 pg (25.0-35.0); MCV 103.8 fL (80.0-100.0); Macrocytosis Moderate; Monocytes # (A) 0.4 k/uL (0-1.0); Monocytes % (A) 5 %; Neutrophils # (A) 6.6 k/uL (1.3-7.7); Neutrophils % (A) 82 %; Platelet Count 152 k/uL (150-450); RBC 4.57 m/uL (4.30-5.90); RDW 14.9 % (11.5-15.5)
[2021-01-22 04:01] LABS: African American GFR (CKD) >90 (>60 ml/min/1.73 sqM); Anion Gap 5 mmol/L; Blood Urea Nitrogen 13 mg/dL (9-20); Calcium 8.6 mg/dL (8.4-10.2); Carbon Dioxide 29 mmol/L (22-30); Chloride 107 mmol/L (98-107); Glucose 134 mg/dL (74-99); Magnesium 1.9 mg/dL (1.6-2.3); Non-African American GFR(CKD) >90 (>60 ml/min/1.73 sqM); Phosphorus 3.4 mg/dL (2.5-4.5); Potassium 4.1 mmol/L (3.5-5.1); Sodium 141 mmol/L (137-145)
[2021-01-22] MEDS: 1: MVI, ADULT NO.4 WITH VIT K 10 ML, TRACE (CONC-1ML/DOSE) 1 ML in AMINO ACID 4.25%-D10W IV SCH ×3 (04:45)
[2021-01-22] MEDS: methylPREDNISolone SOD SUCCI 125 MG/2 ML VIAL IV SCH (05:44)
[2021-01-22 05:49] LABS: Glucose,Whole Blood 123 mg/dL (75-99)
[2021-01-22] MEDS: INSULIN ASPART (NovoLOG) 100 UNIT/ML VIAL SQ SCH ×4 (06:58→21:40)
[2021-01-22] MEDS ORDERED: FUROSEMIDE 10 MG/ML 4 ML VIAL IV STA (08:54)
--- NOTE | 2021-01-22 09:02 | XR ---
EXAMINATION TYPE: XR chest 1V portable DATE OF EXAM: 01/22/2021 COMPARISON: Chest x-ray 01/21/2021 HISTORY: Extubated, abnormal chest x-ray TECHNIQUE: Single frontal view of the chest is obtained. FINDINGS: Endotracheal tube and orogastric tube have been removed, PICC line is stable. No evident p neumothorax. Cardiac mediastinal silhouette shows a similar appearance, pleural-parenchymal changes s how no interval change. There are overlying artifacts. IMPRESSION: Interval extubation. Correlate for pneumonia, edema, congestive heart failure, interstit ial lung disease, there is cardiomegaly
[2021-01-22] MEDS: IPRATROPIUM-ALBUTEROL 3 ML NEB INHALATION SCH ×4 (09:10→19:39)
[2021-01-22] MEDS: CHOLESTYRAMINE (WITH SUGAR) 4 GM PACKET PO SCH (09:29)
[2021-01-22] MEDS: PHENYTOIN ORAL SUSP 100 MG/4 ML CUP PO SCH ×2 (09:29→19:49)
[2021-01-22] MEDS: CLOPIDOGREL 75 MG TAB PO SCH (09:30)
[2021-01-22] MEDS: LACTULOSE 20 GM/30 ML CUP PO SCH ×2 (09:30→19:49)
[2021-01-22] MEDS: ATORVASTATIN 20 MG TAB PO SCH (09:30)
[2021-01-22] MEDS: THEOPHYLLINE 24 HOUR 400 MG CAP.ER.24H PO SCH (09:30)
[2021-01-22] MEDS: ASPIRIN 325 MG TAB PO SCH (09:30)
[2021-01-22] MEDS: ISOSORBIDE MONONITRATE ER 30 MG TAB.ER.24H PO SCH (09:30)
[2021-01-22] MEDS: PANTOPRAZOLE 40 MG/10 ML VIAL IVP SCH (09:30)
[2021-01-22] MEDS: PARoxetine 20 MG TAB PO SCH (09:32)
[2021-01-22] MEDS: PREGABALIN 100 MG CAP PO SCH ×3 (09:32→19:49)
[2021-01-22] MEDS: METOPROLOL TARTRATE 25 MG TAB PO SCH ×2 (09:33→19:49)
[2021-01-22] MEDS: LORATADINE 10 MG TAB PO SCH (09:33)
[2021-01-22] MEDS: allopurinoL 100 MG TAB PO SCH (09:33)
[2021-01-22] MEDS: CHLORHEXIDINE GLUCONATE 15 ML CUP MUCOUS MEM SCH (09:34)
[2021-01-22] MEDS: MONTELUKAST 10 MG TAB PO SCH (09:34)
[2021-01-22] MEDS: MAGNESIUM SULFATE-D5W PMX 1 GM in DEXTROSE/WATER 1 100ML.BAG IVPB SCH ×2 (09:34→13:24)
[2021-01-22] MEDS: SODIUM CHLORIDE 0.9% 1,000 ML IV SCH ×2 (09:39→16:36)
--- NOTE | 2021-01-22 11:32 | P.PN ---
Subjective Progress Note Date: 01/22/21 Principal diagnosis: Dyspnea, hypoxia, abnormal chest x-ray 60-year-old white male patient with past medical history of COPD, chronic and ongoing history of tobacco dependence, coronary artery disease, previous history of myocardial infarction, previous placement of cardiac stents, seizure disorder, history of CVA with residual left arm weakness, chronic hypoxic respiratory failure and patient usually wears 3 L of oxygen at home who came into the emergency department on 01/17/2021 for evaluation of altered mental status, and worsening shortness of breath. Patient was quite lethargic and his could not arouse him in the morning and called EMS. Patient did become ar ousable but lethargic as EMS transferring him to the ER. His chest x-ray showed cardiomegaly and chronic changes with diminished inspiration and elevated left hemidiaphragm, and persistent right mid and lower lung opacities the clinic reflect residual acute infiltrates. He tested negative for COVID 19. CT of the brain and cervical spine showed no acute intracranial hemorrhage or midline shift, and no acute fracture or dislocation of the cervical spine. His admission blood work showed no evidence of leukocytosis, he is 1.0, was 9.9, hemoglobin was 16.9, hematocrit was elevated at 54.1, d-dimer was mildly elevated at 0.79 and CTA chest was completed showing no evidence of central saddle pulmonary embolism, however this was a suboptimal study, and smaller segmental subsegmental PEs could not be excluded, there was prominent cardiomegaly, and new tiny bilateral pleural effusions and scattered areas of atelectasis and/or consolidation bilaterally. There was new bilateral hilar adenopathy, and possible acute infectious process and CHF. Patient was initially placed on high flow nasal cannula, he was started on breathing treatments, diuretics, steroids, and antibiotics, as a day when he continued to be short of breath, and eventually was intubated and placed on mechanical ventilator and transferred to the intensive care unit, this morning he remains intubated and sedated, currently on assist control mode of ventilation with a rate of 24, multivitamins 450, FiO2 100%, and PEEP of 14, this was blood gases show pO2 of 87, pCO2 of 59, and pH of 7.43. He is currently on 0.9 normal saline at KVO, and improving and is currently at 30 weeks per kilo per minute, he is in sinus mechanism, he is not requiring any vasopressor support, current antibiotic coverage is Levaquin, patient's microbiology results from previous admissions has been reviewed and there is evidence of Enterobacter and Klebsiella pneumonia in his sputum cultures from previous admissions. Today's lab work has been reviewed showing white blood count 8.3, hemoglobin of 14.6, platelet count of 173, CO2 of 36, the rest of the electrolytes and renal profile were unremarkable, alkaline phosphatase is 185, otherwise AST and OT were within normal limits. On 01/19/2021 patient seen in follow-up in the intensive care unit, he remains intubated, sedated on mechanical ventilator, on assist control mode of venti lation with a rate of 22, tidal is 450, FiO2 of 40% and PEEP of 16, this was blood gas shows pO2 of 70, pCO2 59, and pH is 7.42, chest x-ray today shows bibasilar increased density and it is difficult to exclude small effusions, no evident pneumothorax, ET tube, orogastric tube, PICC line are in appropriate positions. Not on any vasoactive drips, not on any vasopressor support, he remains on combination of vancomycin and Levaquin for antibiotic coverage for possibility of pneumonia, blood and sputum cultures have been sent and are pending, so far showing no growth. Today's labs have been reviewed showing a white blood cell count is 7.4, hemoglobin of 14.2, sodium is 145, potassium 4.2, chloride is 108, CO2 is 36, B1 of 18, creatinine 0.65, alkaline phosphatase is improving and is down to 165, AST is 14, ALT is 11. Patient has been getting intermittent doses of Lasix, is however in positive fluid balance. No acute events overnight. Is producing urine in the order of 25-30 ML per hour. On 01/20/2021 patient seen in follow-up in intensive care unit, he remains intubated, sedated on mechanical ventilator, with assist control mode of ventilation rate of 22, tidal volume was 450, and FiO2 of 50% PEEP of 12, this morning's blood gas shows pO2 of 77, pCO2 57, and pH of 7.39, patient is currently on 0.9 normal saline at a rate of 125 ML per hour, Diprivan is a 55 mics per kilo per minute and TPN is at 30 ML per hour, today's chest x-ray shows improvement in the appearance of left lower lobe atelectasis or infiltrates, and there is prominent interstitium and patchy bilateral airspace disease. Hemodynamically patient is stable, in sinus mechanism with a rate of 50 BPM, not on any vasopressor support. Neurology is following with the patient for altered mental status, history of seizures, and feels that his altered mentation is related to toxic metabolic encephalopathy which is multifactorial. EEG was completed showing background slowing of [id number] degree, this is suggestive of generalized cerebral dysfunction seen in toxic metabolic encephalopathy or due to diffuse structural brain abnormality. No epileptiform activity was seen. In terms of his pneumonia patient remains on a combination of Levaquin and vancomycin, and blood and sputum cultures are pending, sputum preliminary culture shows rare epithelial cells, rare white blood cells, and moderate gram-positive cocci in clusters. Final culture is pending. Preliminary blood culture is still in progress. The blood work has been reviewed, white blood cell, 7.4, hemoglobin is 14.2. Sodium is 140, potassium is 4.1, chloride is 105, CO2 is 31, BUN of 15 and creatinine 0.51, ammonia level on yesterday's labs was improving and was down to 23. Patient remains on antibiotics as mentioned above, IV Solu-Medrol 60 mg every 6 hours, breathing treatments On 01/22/2021 patient seen in follow-up in intensive care unit, he was successfully weaned and extubated from mechanical ventilation yesterday on 01/21/2021, tolerating extubation quite well so far, he is awake and alert, he is oriented 3, he is currently on 4 L of oxygen, maintaining O2 saturations above 90%, he is breathing comfortably, denies any worsening dyspnea, no chest discomfort, no cough or hemoptysis, he is afebrile, hemodynamically he stable, he is on 0.9 normal saline at a rate of 125 ML per hour, TPN is infusing at 60 mL per hour. Abdomen is soft, nontender, at times patient has been noted to be a bit confused, he seems quite appropriate at this time. At times he was noted to be hallucinating as well. Vital signs have been stable, no fever or chills, today's chest x-ray shows changes consistent with congestive heart failure, interstitial infiltrates, cardiomegaly. He is on Levaquin for abiotic coverage, his sputum and blood cultures have been negative thus far, this morning's blood work has been reviewed showing white blood cell count of 8.0, hemoglobin of 15.6, electrolytes and renal profile were within normal limits, BUN of 30 creatinine 0.5, ammonia level is 31. Seems fairly comfortable, but generally swollen, we will likely benefit from diuretics Objective - Vital Signs Vital signs: Vital Signs Temp 98.9 F 01/22/21 04:00 Pulse 70 01/22/21 09:23 Resp 15 01/22/21 07:00 BP 141/87 01/22/21 07:00 Pulse Ox 93 L 01/22/21 07:00 Intake & Output 01/21/21 01/22/21 01/22/21 18:59 06:59 18:59 Intake Total 3671.090 2925 Output Total 3715 2290 Balance -43.910 635 Weight 115.2 kg Intake: IV 2531 2445 Levofloxacin 750Mg-D5w 100 Pmx 750 mg In Dextrose/ Water 1 150ml.bag @ 100 mls/hr IVPB Q24H [facility] Rx#: [id number] Mvi, Adult No.4 with Vit 780 720 K 10 ml Trace (Conc-1Ml/ Dose) 1 ml In Amino Acid 4.25%-D10w+Lytes*E* 1,000 ml @ 60 mls/hr IV .BY DURATION [facility] Rx#: [id number] Sodium Chloride 0.9% 1, 1125 1125 000 ml @ 125 mls/hr IV . Q8H [facility] Rx#:[id number] Vancomycin 1,750 mg In 626 500 Sodium Chloride 0.9% 500 ml 500 ml @ 167 mls/hr IVPB Q12H [facility] Rx#: [id number] Intake, IV Titration 1140.090 Amount Mvi, Adult No.4 with Vit 1011 K 10 ml Trace (Conc-1Ml/ Dose) 1 ml In Amino Acid 4.25%-D10w+Lytes*E* 1,000 ml @ 60 mls/hr IV .BY DURATION [facility] Rx#: [id number] propofoL 1,000 mg In 129.090 Empty Bag 1 bag @ Titrate IV .Q0M [facility] Rx#: [id number] Oral 480 Output: Urine 3715 2290 Other: Voiding Method Indwelling Catheter Indwelling Catheter - Exam GENERAL EXAM: Awake and alert, oriented 3 60-year-old white male, on 4 L of oxygen comfortable in no apparent distress. HEAD: Normocephalic/atraumatic. EYES: Normal reaction of pupils, equal size. Conjunctiva pink, sclera white. NOSE: Clear with pink turbinates. THROAT: No erythema or exudates. NECK: No masses, no JVD, no thyroid enlargement, no adenopathy. CHEST: No chest wall deformity. Symmetrical expansion. LUNGS: Equal air entry with no crackles, wheeze, rhonchi or dullness. CVS: Regular rate and rhythm, normal S1 and S2, no gallops, no murmurs, no rubs ABDOMEN: Soft, nontender. No hepatosplenomegaly, normal bowel sounds, no guarding or rigidity. EXTREMITIES: No clubbing, generally swollen, 1-2+ edema involving upper and lower extremity is, and abdomen no cyanosis, 2+ pulses and upper and lower extremities. MUSCULOSKELETAL: Muscle strength and tone normal. SPINE: No scoliosis or deformity SKIN: No rashes CENTRAL NERVOUS SYSTEM: Alert, oriented 3, 60-year-old white male with no focal deficits, tone is normal in all 4 extremities. - Labs CBC & Chem 7: 01/22/21 03:22 01/22/21 03:22 Labs: Abnormal Lab Results - Last 24 Hours (Table) 01/21/21 01/21/21 01/21/21 Range/Units 11:55 17:18 23:03 MCV (80.0-100.0) fL Lymphocytes # (1.0-4.8) k/uL Creatinine (0.66-1.25) mg/dL Glucose (74-99) mg/dL POC Glucose (mg/dL) 169 H 146 H 166 H (75-99) mg/dL Ammonia (<30) umol/L 01/22/21 01/22/21 01/22/21 Range/Units 03:22 03:22 05:48 MCV 103.8 H (80.0-100.0) fL Lymphocytes # 0.8 L (1.0-4.8) k/uL Creatinine 0.51 L (0.66-1.25) mg/dL Glucose 134 H (74-99) mg/dL POC Glucose (mg/dL) 123 H (75-99) mg/dL Ammonia (<30) umol/L 01/22/21 Range/Units 09:23 MCV (80.0-100.0) fL Lymphocytes # (1.0-4.8) k/uL Creatinine (0.66-1.25) mg/dL Glucose (74-99) mg/dL POC Glucose (mg/dL) (75-99) mg/dL Ammonia 31 H (<30) umol/L Microbiology - Last 24 Hours (Table) 01/17/21 11:00 Blood Culture - Preliminary Blood No Growth after 96 hours 01/17/21 11:19 Blood Culture - Preliminary Blood No Growth after 96 hours Assessment and Plan Plan: Assessment: #1. Acute on chronic hypoxic respiratory failure related to acute exacerbation of COPD, and possibility of pneumonia is not entirely excluded, and patient was intubated on 01/17/2021, extubated on 01/21/2021 #2. Acute exacerbation of CHF with most recent documented normal EF and d iastolic dysfunction #3. Bilateral hilar lymph nodes, likely reactive, will follow to monitor for any change #4. Altered mental status related to toxic metabolic encephalopathy #5. Hepatic encephalopathy with elevated ammonia level, improving #6. Chronic and ongoing nicotine dependence #7. History of seizure disorder #8. History of coronary artery disease with previous stenting and history of myocardial infarction #9. Chronic kidney disease #10. Anemia of chronic disease #11. History of CVA with residual left arm weakness #12. Chronic systolic CHF and ischemic heart disease #13. Obstructive sleep apnea Plan: Tolerating extubation quite well so far, wean FiO2 to maintain O2 saturations at or above 90% Decrease IV fluids to KVO Give one-time dose Lasix 40 mg IVP Obtain swallow evaluation and if passes a bedside swallow evaluation may start oral feedings Discontinue TPN chest x-ray has been reviewed Will benefit from diuretics Continue with Levaquin and will discontinue vancomycin Hemodynamically stable not on any vasopressor support Discontinue Ativan, agree with Seroquel at bedtime Decrease IV Solu-Medrol to 40 mg every 8 hours Follow-up labs and chest x-ray tomorrow I performed a history & physical examination of the patient and discussed their management with my nurse practitioner, Heena De La Garza. I reviewed the nurse practitioner's note and agree with the documented findings and plan of care. Lung sounds are positive for diminished breath sounds The findings and the impression was discussed with the patient. I attest to the documentation by the nurse practitioner. Time with Patient: Greater than 30
[2021-01-22 13:17] LABS: Glucose,Whole Blood 116 mg/dL (75-99)
[2021-01-22] MEDS: HYDROcodone/APAP 7.5-325MG 1 EACH TAB PO PRN ×2 (14:39→20:52)
[2021-01-22 15:36] VITALS: BMI 36.4
--- NOTE | 2021-01-22 15:59 | P.PN ---
Subjective Progress Note Date: 01/22/21 This is 60-year-old gentleman follows with Dr. Teran in the office with past medical history of CAD-myocardial infarction, cardiac stents, seizure disorder, CVA with residual left arm weakness SLE, COPD on 3 L home O2, nicotine dependence-2 packs per day, brought to the ER via EMS with complaints of altered mental status, worsening shortness of breath. Significant other states patient had gone to bed at 11 PM the night prior with normal mental status and was unable to arouse him the next morning and called EMS. Patient was arousable, lethargic as EMS transferring patient to stretcher. Denies trauma, denies seizure activity denies nausea vomiting or diarrhea. Denies abdominal pain. Denies chest pain, palpitations. Significant other further reports patient had been falling multiple times yesterday, called EMS but patient refused. On admission afebrile, normal WBC, hypertensive with systolic blood pressures in the 180s, heart rate stable, respiratory rate 16-20, requiring a nonrebreather to maintain O2 sats of 94-97%. Oxygen and has since been weaned down to high flow 8 L nasal cannula, maintaining O2 sats in the low 90s. Hemoglobin 16.9, platelets 210, MCV 107. D-dimer 0.79. Sodium 147, potassium 5.2, CO2 38, BUN 14, creatinine 0.83, blood sugars controlled, magnesium 2.5, lactic acid 0.6, T bili and LFTs within normal limits with the exception of alk phos mildly elevated 204. Ammonia 95, creatinine kinase 48, troponin negative 1, CRP 6.2 BNP 3490. UA negative. Toxicology detected barbiturates, phenytoin level subtherapeutic at 3.9, serum alcohol less than 10. Coronavirus, influenza A/B not detected. Head/C-spine CT reported no acute fracture, dislocation of the C-spine with no acute intracranial hemorrhage or midline shift. Chest x-ray reported cardiomegaly, diminished inspiration, elevated left hemidiaphragm, persistent right mid and lower lung opacity is, possibly acute infiltrates with new left upper lung acute infiltrate. Chest CT suboptimal ,reported no large central PE, moderate to severe 3 vessel CAD, new tiny bilateral pleural effusions, scattered atelectasis and/or consolidation bilaterally new from prior, new bilateral hilar adenopathy, new prominent bilateral hilar lymph nodes, prominent subcarinal 2.5 x 1.1 cm lymph node, fatty liver EKG reported sinus rhythm with occasional PVC, possible left atrial enlargement .received IV fluids including Banana bag, Levaquin, IV steroids, nebulized bronchodilators and a dose of Lasix IV push in the ER. 01/18/2021 Intubated during the night, FiO2 currently at 60% ,PEEP increased to 16. Sedated on diprovan. Chest x-ray reporting improvement in aeration, possible pleural thickening, possible minimal effusion, pneumonia- mild blunting of costophrenic angles with hemidiaphragm is partially obscured, bilateral patchy bilateral lung base density. Received lactulose last night, ammonia level down to 29. Alk phos trending down, 185. Receiving vancomycin and Levaquin,.T- max 99.9, WBC 8.3. CO2 36. Renal function stable. PICC line placed. Neurology currently at bedside, evaluating. 01/19/2021 ABGs noted, FiO2 decreased to 50%, PEEP decreased to 12. Chest x-ray similar, improving. Placed on sedation holiday, following commands. Telemetry sinus rhythm. Neuro workup in progress with EEG currently being completed at bedside. 01/22/21 extubated yesterday, maintaining O2 sats in the low 90s on 40% BiPAP. Mild confusion through the night and received Seroquel. Fluctuating h allucinations. Ammonia level 31. Maintained on Dilantin with levels up to 9.2. Seizure activity reported. Maintained on TPN. Continues on Levaquin. Chest x- ray reports similar findings, congestive heart failure, interstitial infiltrates, cardiomegaly. Objective - Vital Signs Vital signs: Vital Signs Temp 98.9 F 01/22/21 04:00 Pulse 70 01/22/21 12:35 Resp 15 01/22/21 07:00 BP 141/87 01/22/21 07:00 Pulse Ox 93 L 01/22/21 07:00 Intake & Output 01/21/21 01/22/21 01/22/21 18:59 06:59 18:59 Intake Total 3671.090 2925 Output Total 3715 2290 Balance -43.910 635 Weight 115.2 kg 115.2 kg Intake: IV 5121 2445 Levofloxacin 750Mg-D5w 100 Pmx 750 mg In Dextrose/ Water 1 150ml.bag @ 100 mls/hr IVPB Q24H [facility] Rx#: [id number] Mvi, Adult No.4 with Vit 780 720 K 10 ml Trace (Conc-1Ml/ Dose) 1 ml In Amino Acid 4.25%-D10w+Lytes*E* 1,000 ml @ 60 mls/hr IV .BY DURATION [facility] Rx#: [id number] Sodium Chloride 0.9% 1, 1125 1125 000 ml @ 125 mls/hr IV . Q8H [facility] Rx#:[id number] Vancomycin 1,750 mg In 626 500 Sodium Chloride 0.9% 500 ml 500 ml @ 167 mls/hr IVPB Q12H [facility] Rx#: [id number] Intake, IV Titration 1140.090 Amount Mvi, Adult No.4 with Vit 1011 K 10 ml Trace (Conc-1Ml/ Dose) 1 ml In Amino Acid 4.25%-D10w+Lytes*E* 1,000 ml @ 60 mls/hr IV .BY DURATION [facility] Rx#: [id number] propofoL 1,000 mg In 129.090 Empty Bag 1 bag @ Titrate IV .Q0M [facility] Rx#: [id number] Oral 480 Output: Urine 3715 2290 Other: Voiding Method Indwelling Catheter Indwelling Catheter - Exam General: Currently alert and oriented 3, Sitting up in bed, NAD. HEENT: [Normocephalic , atraumatic PERRL. EOMI. Neck: [Supple, unable to assess JVD, short neck Cardiac: [Heart regular in rate and rhythm. No S3. No S4. No clicks, rubs. No murmur.] Lungs: Minimal air exchange, bilateral bases diminished. Abdomen: [Soft , obese, distended, nontender , no guarding or rigidity, positive bowel sounds Extremities: [Trace edema no cyanosis, pos.normal pulses] Skin: [Warm and dry, No rash.] Neurologic: cranial nerves II through XII grossly intact, no focal deficits - Labs CBC & Chem 7: 01/22/21 03:22 01/22/21 03:22 Labs: Abnormal Lab Results - Last 24 Hours (Table) 01/21/21 01/21/21 01/22/21 Range/Units 17:18 23:03 03:22 MCV 103.8 H (80.0-100.0) fL Lymphocytes # 0.8 L (1.0-4.8) k/uL Creatinine (0.66-1.25) mg/dL Glucose (74-99) mg/dL POC Glucose (mg/dL) 146 H 166 H (75-99) mg/dL Ammonia (<30) umol/L 01/22/21 01/22/21 01/22/21 Range/Units 03:22 05:48 09:23 MCV (80.0-100.0) fL Lymphocytes # (1.0-4.8) k/uL Creatinine 0.51 L (0.66-1.25) mg/dL Glucose 134 H (74-99) mg/dL POC Glucose (mg/dL) 123 H (75-99) mg/dL Ammonia 31 H (<30) umol/L 01/22/21 Range/Units 13:15 MCV (80.0-100.0) fL Lymphocytes # (1.0-4.8) k/uL Creatinine (0.66-1.25) mg/dL Glucose (74-99) mg/dL POC Glucose (mg/dL) 116 H (75-99) mg/dL Ammonia (<30) umol/L Microbiology - Last 24 Hours (Table) 01/17/21 11:00 Blood Culture - Preliminary Blood No Growth after 120 hours 01/17/21 11:19 Blood Culture - Preliminary Blood No Growth after 120 hours Assessment and Plan Assessment: Acute on chronic hypoxic, hypercapnic respiratory failure, secondary to acute bilateral pneumonia, possibly aspiration, possible community acquired, acute COPD exacerbation, acute CHF diastolic dysfunction secondary to fluid overload. wears 3 L nasal cannula O2 at home, requiring nonrebreather on admission, status post mechanical ventilation Acute on chronic CHF exacerbation, diastolic dysfunction, echo 05/18/2021 reporting LV function normal with EF 50-55% Acute metabolic and toxic encephalopathy secondary to the above, hyperammonemia Hepatic encephalopathy, ammonia 95, fatty liver on CTA, positive alcohol use, improving New prominent bilateral hilar lymph nodes, prominent subcarinal 2.5 x 1.1 cm lymph node Chronic interstitial lung disease Ongoing Nicotine dependence Recurrent falls, denies syncope, history of alcohol use Seizure disorder, Dilantin level subtherapeutic on admission, suspect noncompliance Gastroesophageal reflux disease Chronic renal failure, stage I Anemia of chronic disease History of CVA with residual left arm weakness Hypertension CAD, history of [place] cardiac stent Obstructive sleep apnea Morbid Obesity, BMI 33.8 Hospital course: Continue on current medication regime ,monitoring and symptomatic treatment. Continue titrating FiO2 as per parameters/pulmonary. Scheduled for a dose of Lasix. TPN being discontinued , full liquid diet initiated .Maintain nebulized bronchodilators, steroids, antibiotics. Maintain Seroquel daily at bedtime. Prognosis guarded in a patient with multiple complex medical issues. The impression and plan of care has been dictated as directed. : I performed a history and examination of this patient, discussed the same with the dictator. I agree with the dictator's note ,documented as a scribe. Any additional findings or plans will be noted.
[2021-01-22 16:33] LABS: Glucose,Whole Blood 92 mg/dL (75-99)
[2021-01-22] MEDS: methylPREDNISolone SOD SUCCI 40 MG/ML 1 ML VIAL IV SCH ×2 (16:37→23:48)
[2021-01-22] MEDS: LEVOFLOXACIN 750MG-D5W PMX 750 MG in DEXTROSE/WATER 1 150ML.BAG IVPB SCH (19:48)
[2021-01-22] MEDS: QUEtiapine 50 MG TAB PO SCH (19:49)
[2021-01-22 21:43] LABS: Glucose,Whole Blood 248 mg/dL (75-99)
--- NOTE | 2021-01-22 23:28 | P.PN ---
Subjective Progress Note Date: 01/22/21 Patient was seen for a follow-up. Patient is doing very well. Offers no complaints. Patient states that he has not had any seizures since 2016 or 2018. He had previously tried Keppra, but produced behavioral problems and made him "wild". No seizures reported. Patient is laying comfortably in the bed. Objective - Vital Signs Vital signs: Vital Signs Temp 99.4 F 01/22/21 20:00 Pulse 74 01/22/21 22:00 Resp 26 H 01/22/21 22:00 BP 115/74 01/22/21 22:00 Pulse Ox 91 L 01/22/21 22:00 Intake & Output 01/22/21 01/22/21 01/23/21 06:59 18:59 06:59 Intake Total 2925 345 120 Output Total 2290 3065 335 Balance 763 -1341 -593 Weight 115.2 kg 115.2 kg Intake: IV 2445 345 120 Levofloxacin 750Mg-D5w 100 100 Pmx 750 mg In Dextrose/ Water 1 150ml.bag @ 100 mls/hr IVPB Q24H [facility] Rx#: [id number] Mvi, Adult No.4 with Vit 720 K 10 ml Trace (Conc-1Ml/ Dose) 1 ml In Amino Acid 4.25%-D10w+Lytes*E* 1,000 ml @ 60 mls/hr IV .BY DURATION [facility] Rx#: [id number] Sodium Chloride 0.9% 1, 1125 345 20 000 ml @ 20 mls/hr IV . Q24H [facility] Rx#:[id number] Vancomycin 1,750 mg In 500 Sodium Chloride 0.9% 500 ml 500 ml @ 167 mls/hr IVPB Q12H [facility] Rx#: [id number] Oral 480 Output: Urine 2290 3065 335 Other: Voiding Method Indwelling Catheter Indwelling Catheter Indwelling Catheter - Exam Patient is alert and awake, normal mentation. Speech and language functions are normal. Muscle strength is normal. No ataxia. - Labs CBC & Chem 7: 01/22/21 03:22 01/22/21 03:22 Labs: Abnormal Lab Results - Last 24 Hours (Table) 01/22/21 01/22/21 01/22/21 Range/Units 03:22 03:22 05:48 MCV 103.8 H (80.0-100.0) fL Lymphocytes # 0.8 L (1.0-4.8) k/uL Creatinine 0.51 L (0.66-1.25) mg/dL Glucose 134 H (74-99) mg/dL POC Glucose (mg/dL) 123 H (75-99) mg/dL Ammonia (<30) umol/L 01/22/21 01/22/21 01/22/21 Range/Units 09:23 13:15 21:31 MCV (80.0-100.0) fL Lymphocytes # (1.0-4.8) k/uL Creatinine (0.66-1.25) mg/dL Glucose (74-99) mg/dL POC Glucose (mg/dL) 116 H 248 H (75-99) mg/dL Ammonia 31 H (<30) umol/L Microbiology - Last 24 Hours (Table) 01/17/21 11:00 Blood Culture - Preliminary Blood No Growth after 120 hours 01/17/21 11:19 Blood Culture - Preliminary Blood No Growth after 120 hours Assessment and Plan Assessment: * Altered mental status, likely due to toxic metabolic encephalopathy. Patient has hypercapnia, hyperammonemia, hypoxemia as a likely cause of altered mental status. * Recurrent falls of unclear etiology. Patient's states that all these episodes have occurred while sitting, he will fall to the side, almost like dozes off. He then gets up by himself. He is not passing out. Does not appear like seizures. Possible related to ?hypercapnia/hyperammonemia. * Seizure disorder, on Dilantin. Patient has not had any seizures since 2017 oh 2018. * COPD * CAD, CHF * History of CVA, * Hypertension * Hyperlipidemia * CAD Plan: * Patient was given a Dilantin load of 1000 mg last night. Today the Dilantin level is 9.2. As per patient statement, he has not had any seizure since 2017 or 2018. We will just keep him on same dose of Dilantin 200 mg twice a day. Patient previously had tried Keppra, but produces behavioral problems and made him "wild". Patient was recommended to follow-up with a neurologist for management of his seizure disorder. * EEG was abnormal due to background slowing of mild to moderate degree. This is suggestive of generalized cerebral dysfunction as can be seen with toxic metabolic encephalopathy due to diffuse structural brain abnormality. No epileptiform activity was seen. * Patient had a carotid Doppler on 05/13/2020, which revealed antegrade flow in both vertebral arteries. There is bilateral plaque formation in the carotid artery bifurcations. Images and measurement suggest less than 25% stenosis in both ICA. No need to repeat. * Patient had a 2-D echo on 05/19/2020, which revealed normal left-ventricular size. Moderate concentric LVH. EF is between 50-55%. Mild to moderately enlarged right ventricle. * Neurologically clear. Please reconsult neurology if any other concerns. Neurology will sign off.
[2021-01-23] MEDS: HYDROcodone/APAP 7.5-325MG 1 EACH TAB PO PRN ×3 (04:55→20:46)
[2021-01-23 05:06] LABS: Basophils % (A) 1 %; Eosinophils # (A) 0.1 k/uL (0-0.7); Eosinophils % (A) 1 %; HCT 53.8 % (39.0-53.0); HGB 16.8 gm/dL (13.0-17.5); Hypochromasia Moderate; Lymphocytes # (A) 1.3 k/uL (1.0-4.8); Lymphocytes % (A) 15 %; MCH 32.6 pg (25.0-35.0); MCHC 31.3 g/dL (31.0-37.0); MCV 104.1 fL (80.0-100.0); Macrocytosis Moderate; Mean Platelet Volume 9.4; Monocytes # (A) 0.6 k/uL (0-1.0); Monocytes % (A) 6 %; Neutrophils # (A) 6.6 k/uL (1.3-7.7); Neutrophils % (A) 76 %; Platelet Count 131 k/uL (150-450); RBC 5.17 m/uL (4.30-5.90); RDW 15.3 % (11.5-15.5); WBC 8.7 k/uL (3.8-10.6)
[2021-01-23 05:40] LABS: ALT 44 U/L (4-49); African American GFR (CKD) >90 (>60 ml/min/1.73 sqM); Anion Gap 8 mmol/L; Blood Urea Nitrogen 18 mg/dL (9-20); Calcium 8.7 mg/dL (8.4-10.2); Carbon Dioxide 27 mmol/L (22-30); Chloride 106 mmol/L (98-107); Glucose 93 mg/dL (74-99); Non-African American GFR(CKD) >90 (>60 ml/min/1.73 sqM); Sodium 141 mmol/L (137-145); Total Bilirubin 0.8 mg/dL (0.2-1.3)
[2021-01-23 05:57] LABS: AST 53 U/L (17-59); Albumin 3.5 g/dL (3.5-5.0); Alkaline Phosphatase 151 U/L (38-126); Magnesium 2.3 mg/dL (1.6-2.3); Potassium 4.7 mmol/L (3.5-5.1); Total Protein 6.1 g/dL (6.3-8.2)
[2021-01-23] MEDS: INSULIN ASPART (NovoLOG) 100 UNIT/ML VIAL SQ SCH ×4 (06:38→20:28)
--- NOTE | 2021-01-23 06:53 | XR ---
EXAMINATION TYPE: XR chest 1V portable DATE OF EXAM: 01/23/2021 COMPARISON: 01/23/2020 HISTORY: Tube placement TECHNIQUE: Single frontal view of the chest is obtained. FINDINGS: Left-sided PICC line stable bilateral consolidation and pleural effusion. Heart enlarged a nd there is diffuse interstitial pattern. Arthritic change of the shoulders with findings suggestive of calcific tendinosis noted. IMPRESSION: 1. Bilateral pleural-parenchymal changes correlate for CHF otherwise consider pneumonia.
[2021-01-23] MEDS: IPRATROPIUM-ALBUTEROL 3 ML NEB INHALATION SCH ×4 (07:38→20:09)
[2021-01-23 08:18] LABS: Glucose,Whole Blood 132 mg/dL (75-99)
[2021-01-23] MEDS: LACTULOSE 20 GM/30 ML CUP PO SCH ×2 (09:24→20:20)
[2021-01-23] MEDS: PHENYTOIN ORAL SUSP 100 MG/4 ML CUP PO SCH ×2 (09:24→20:47)
[2021-01-23] MEDS: CHOLESTYRAMINE (WITH SUGAR) 4 GM PACKET PO SCH (09:24)
[2021-01-23] MEDS: methylPREDNISolone SOD SUCCI 40 MG/ML 1 ML VIAL IV SCH (09:25)
[2021-01-23] MEDS: ATORVASTATIN 20 MG TAB PO SCH (09:25)
[2021-01-23] MEDS: LORATADINE 10 MG TAB PO SCH (09:25)
[2021-01-23] MEDS: METOPROLOL TARTRATE 25 MG TAB PO SCH ×2 (09:25→20:19)
[2021-01-23] MEDS: PANTOPRAZOLE 40 MG TABLET PO SCH (09:25)
[2021-01-23] MEDS: PREGABALIN 100 MG CAP PO SCH ×3 (09:26→20:19)
[2021-01-23] MEDS: ASPIRIN 325 MG TAB PO SCH (09:26)
[2021-01-23] MEDS: allopurinoL 100 MG TAB PO SCH (09:26)
[2021-01-23] MEDS: PARoxetine 20 MG TAB PO SCH (09:26)
[2021-01-23] MEDS: ISOSORBIDE MONONITRATE ER 30 MG TAB.ER.24H PO SCH (09:26)
[2021-01-23] MEDS: CLOPIDOGREL 75 MG TAB PO SCH (09:26)
[2021-01-23] MEDS: THEOPHYLLINE 24 HOUR 400 MG CAP.ER.24H PO SCH (09:26)
[2021-01-23] MEDS ORDERED: FUROSEMIDE 10 MG/ML 4 ML VIAL IV STA (09:51)
--- NOTE | 2021-01-23 09:55 | P.PN ---
Subjective Progress Note Date: 01/23/21 Principal diagnosis: Dyspnea, hypoxia, abnormal chest x-ray 60-year-old white male patient with past medical history of COPD, chronic and ongoing history of tobacco dependence, coronary artery disease, previous history of myocardial infarction, previous placement of cardiac stents, seizure disorder, history of CVA with residual left arm weakness, chronic hypoxic respiratory failure and patient usually wears 3 L of oxygen at home who came into the emergency department on 01/17/2021 for evaluation of altered mental status, and worsening shortness of breath. Patient was quite lethargic and his could not arouse him in the morning and called EMS. Patient did become ar ousable but lethargic as EMS transferring him to the ER. His chest x-ray showed cardiomegaly and chronic changes with diminished inspiration and elevated left hemidiaphragm, and persistent right mid and lower lung opacities the clinic reflect residual acute infiltrates. He tested negative for COVID 19. CT of the brain and cervical spine showed no acute intracranial hemorrhage or midline shift, and no acute fracture or dislocation of the cervical spine. His admission blood work showed no evidence of leukocytosis, he is 1.0, was 9.9, hemoglobin was 16.9, hematocrit was elevated at 54.1, d-dimer was mildly elevated at 0.79 and CTA chest was completed showing no evidence of central saddle pulmonary embolism, however this was a suboptimal study, and smaller segmental subsegmental PEs could not be excluded, there was prominent cardiomegaly, and new tiny bilateral pleural effusions and scattered areas of atelectasis and/or consolidation bilaterally. There was new bilateral hilar adenopathy, and possible acute infectious process and CHF. Patient was initially placed on high flow nasal cannula, he was started on breathing treatments, diuretics, steroids, and antibiotics, as a day when he continued to be short of breath, and eventually was intubated and placed on mechanical ventilator and transferred to the intensive care unit, this morning he remains intubated and sedated, currently on assist control mode of ventilation with a rate of 24, multivitamins 450, FiO2 100%, and PEEP of 14, this was blood gases show pO2 of 87, pCO2 of 59, and pH of 7.43. He is currently on 0.9 normal saline at KVO, and improving and is currently at 30 weeks per kilo per minute, he is in sinus mechanism, he is not requiring any vasopressor support, current antibiotic coverage is Levaquin, patient's microbiology results from previous admissions has been reviewed and there is evidence of Enterobacter and Klebsiella pneumonia in his sputum cultures from previous admissions. Today's lab work has been reviewed showing white blood count 8.3, hemoglobin of 14.6, platelet count of 173, CO2 of 36, the rest of the electrolytes and renal profile were unremarkable, alkaline phosphatase is 185, otherwise AST and OT were within normal limits. On 01/19/2021 patient seen in follow-up in the intensive care unit, he remains intubated, sedated on mechanical ventilator, on assist control mode of venti lation with a rate of 22, tidal is 450, FiO2 of 40% and PEEP of 16, this was blood gas shows pO2 of 70, pCO2 59, and pH is 7.42, chest x-ray today shows bibasilar increased density and it is difficult to exclude small effusions, no evident pneumothorax, ET tube, orogastric tube, PICC line are in appropriate positions. Not on any vasoactive drips, not on any vasopressor support, he remains on combination of vancomycin and Levaquin for antibiotic coverage for possibility of pneumonia, blood and sputum cultures have been sent and are pending, so far showing no growth. Today's labs have been reviewed showing a white blood cell count is 7.4, hemoglobin of 14.2, sodium is 145, potassium 4.2, chloride is 108, CO2 is 36, B1 of 18, creatinine 0.65, alkaline phosphatase is improving and is down to 165, AST is 14, ALT is 11. Patient has been getting intermittent doses of Lasix, is however in positive fluid balance. No acute events overnight. Is producing urine in the order of 25-30 ML per hour. On 01/20/2021 patient seen in follow-up in intensive care unit, he remains intubated, sedated on mechanical ventilator, with assist control mode of ventilation rate of 22, tidal volume was 450, and FiO2 of 50% PEEP of 12, this morning's blood gas shows pO2 of 77, pCO2 57, and pH of 7.39, patient is currently on 0.9 normal saline at a rate of 125 ML per hour, Diprivan is a 55 mics per kilo per minute and TPN is at 30 ML per hour, today's chest x-ray shows improvement in the appearance of left lower lobe atelectasis or infiltrates, and there is prominent interstitium and patchy bilateral airspace disease. Hemodynamically patient is stable, in sinus mechanism with a rate of 50 BPM, not on any vasopressor support. Neurology is following with the patient for altered mental status, history of seizures, and feels that his altered mentation is related to toxic metabolic encephalopathy which is multifactorial. EEG was completed showing background slowing of [id number] degree, this is suggestive of generalized cerebral dysfunction seen in toxic metabolic encephalopathy or due to diffuse structural brain abnormality. No epileptiform activity was seen. In terms of his pneumonia patient remains on a combination of Levaquin and vancomycin, and blood and sputum cultures are pending, sputum preliminary culture shows rare epithelial cells, rare white blood cells, and moderate gram-positive cocci in clusters. Final culture is pending. Preliminary blood culture is still in progress. The blood work has been reviewed, white blood cell, 7.4, hemoglobin is 14.2. Sodium is 140, potassium is 4.1, chloride is 105, CO2 is 31, BUN of 15 and creatinine 0.51, ammonia level on yesterday's labs was improving and was down to 23. Patient remains on antibiotics as mentioned above, IV Solu-Medrol 60 mg every 6 hours, breathing treatments On 01/22/2021 patient seen in follow-up in intensive care unit, he was successfully weaned and extubated from mechanical ventilation yesterday on 01/21/2021, tolerating extubation quite well so far, he is awake and alert, he is oriented 3, he is currently on 4 L of oxygen, maintaining O2 saturations above 90%, he is breathing comfortably, denies any worsening dyspnea, no chest discomfort, no cough or hemoptysis, he is afebrile, hemodynamically he stable, he is on 0.9 normal saline at a rate of 125 ML per hour, TPN is infusing at 60 mL per hour. Abdomen is soft, nontender, at times patient has been noted to be a bit confused, he seems quite appropriate at this time. At times he was noted to be hallucinating as well. Vital signs have been stable, no fever or chills, today's chest x-ray shows changes consistent with congestive heart failure, interstitial infiltrates, cardiomegaly. He is on Levaquin for abiotic coverage, his sputum and blood cultures have been negative thus far, this morning's blood work has been reviewed showing white blood cell count of 8.0, hemoglobin of 15.6, electrolytes and renal profile were within normal limits, BUN of 30 creatinine 0.5, ammonia level is 31. Seems fairly comfortable, but generally swollen, we will likely benefit from diuretics On 01/23/2021 patient seen in follow-up in the intensive care unit, he is awake and alert, in no acute distress, he was successfully weaned and extubated from mechanical ventilator couple days ago, tolerating extubation quite well, he is on 3 L of oxygen, breathing comfortably, he was on BiPAP last night with FiO2 of 40%, he is currently on 3 L of oxygen, no fever or chills, vitals have been stable, no acute events overnight, today's chest x-ray shows changes consistent with CHF. Patient was given a dose of Lasix yesterday, and he is in -3.1 L f luid balance over the last 24 hours. His labs today show white blood cell count of 8.7, hemoglobin of 16.8, electrolytes and renal profile were unremarkable. His blood and sputum cultures have been negative. Objective - Vital Signs Vital signs: Vital Signs Temp 98.3 F 01/23/21 04:00 Pulse 65 01/23/21 07:50 Resp 16 01/23/21 07:00 BP 115/68 01/23/21 07:00 Pulse Ox 92 L 01/23/21 07:00 Intake & Output 01/22/21 01/23/21 01/23/21 18:59 06:59 18:59 Intake Total 345 260 20 Output Total 3065 695 55 Balance -2720 -435 -35 Weight 115.2 kg 111.4 kg Intake: IV 345 260 20 Levofloxacin 750Mg-D5w 100 Pmx 750 mg In Dextrose/ Water 1 150ml.bag @ 100 mls/hr IVPB Q24H [facility] Rx#: [id number] Sodium Chloride 0.9% 1, 345 160 20 000 ml @ 20 mls/hr IV . Q24H [facility] Rx#:[id number] Output: Urine 3065 695 55 Other: Voiding Method Indwelling Catheter Indwelling Catheter - Exam GENERAL EXAM: Awake and alert, oriented 3 60-year-old white male, on 4 L of oxygen comfortable in no apparent distress. HEAD: Normocephalic/atraumatic. EYES: Normal reaction of pupils, equal size. Conjunctiva pink, sclera white. NOSE: Clear with pink turbinates. THROAT: No erythema or exudates. NECK: No masses, no JVD, no thyroid enlargement, no adenopathy. CHEST: No chest wall deformity. Symmetrical expansion. LUNGS: Equal air entry with no crackles, wheeze, rhonchi or dullness. CVS: Regular rate and rhythm, normal S1 and S2, no gallops, no murmurs, no rubs ABDOMEN: Soft, nontender. No hepatosplenomegaly, normal bowel sounds, no guarding or rigidity. EXTREMITIES: No clubbing, generally swollen, 1-2+ edema involving upper and lower extremity is, and abdomen no cyanosis, 2+ pulses and upper and lower extremities. MUSCULOSKELETAL: Muscle strength and tone normal. SPINE: No scoliosis or deformity SKIN: No rashes CENTRAL NERVOUS SYSTEM: Alert, oriented 3, 60-year-old white male with no focal deficits, tone is normal in all 4 extremities. - Labs CBC & Chem 7: 01/23/21 03:25 01/23/21 03:25 Labs: Abnormal Lab Results - Last 24 Hours (Table) 01/22/21 01/22/21 01/23/21 Range/Units 13:15 21:31 03:25 Hct 53.8 H (39.0-53.0) % MCV 104.1 H (80.0-100.0) fL Plt Count 131 L (150-450) k/uL Creatinine (0.66-1.25) mg/dL POC Glucose (mg/dL) 116 H 248 H (75-99) mg/dL Alkaline Phosphatase (38-126) U/L Total Protein (6.3-8.2) g/dL 01/23/21 01/23/21 Range/Units 03:25 06:37 Hct (39.0-53.0) % MCV (80.0-100.0) fL Plt Count (150-450) k/uL Creatinine 0.61 L (0.66-1.25) mg/dL POC Glucose (mg/dL) 132 H (75-99) mg/dL Alkaline Phosphatase 151 H (38-126) U/L Total Protein 6.1 L (6.3-8.2) g/dL Microbiology - Last 24 Hours (Table) 01/17/21 11:00 Blood Culture - Preliminary Blood No Growth after 120 hours 01/17/21 11:19 Blood Culture - Preliminary Blood No Growth after 120 hours Assessment and Plan Plan: Assessment: #1. Acute on chronic hypoxic respiratory failure related to acute exacerbation of COPD, and possibility of pneumonia is not entirely excluded, and patient was intubated on 01/17/2021, extubated on 01/21/2021 #2. Acute exacerbation of CHF with most recent documented normal EF and diastolic dysfunction #3. Bilateral hilar lymph nodes, likely reactive, will follow to monitor for any change #4. Altered mental status related to toxic metabolic encephalopathy #5. Hepatic encephalopathy with elevated ammonia level, improving #6. Chronic and ongoing nicotine dependence #7. History of seizure disorder #8. History of coronary artery disease with previous stenting and history of myocardial infarction #9. Chronic kidney disease #10. Anemia of chronic disease #11. History of CVA with residual left arm weakness #12. Chronic systolic CHF and ischemic heart disease #13. Obstructive sleep apnea Plan: Doing well, no acute events overnight Another dose of IV Lasix 40 mg 1 Obtain swallow evaluation and proceed with oral feedings if passes Continue with Levaquin, vancomycin has been discontinued, cultures are negative thus far BiPAP at bedtime with pressures of 14/6 and FiO2 of 40% Switch Solu-Medrol to oral prednisone 40 mg daily starting tomorrow Daily weights, intake and output Follow-up chest x-ray tomorrow in follow-up labs Transfer to general medical floor without telemetry today I performed a history & physical examination of the patient and discussed their management with my nurse practitioner, Heena De La Garza. I reviewed the nurse practitioner's note and agree with the documented findings and plan of care. Lung sounds are positive for diminished breath sounds The findings and the impression was discussed with the patient. I attest to the documentation by the nurse practitioner. Time with Patient: Greater than 30
[2021-01-23 11:20] LABS: Glucose,Whole Blood 152 mg/dL (75-99)
--- NOTE | 2021-01-23 15:02 | P.PN ---
Subjective Progress Note Date: 01/23/21 This is 60-year-old gentleman follows with Dr. Teran in the office with past medical history of CAD-myocardial infarction, cardiac stents, seizure disorder, CVA with residual left arm weakness SLE, COPD on 3 L home O2, nicotine dependence-2 packs per day, brought to the ER via EMS with complaints of altered mental status, worsening shortness of breath. Significant other states patient had gone to bed at 11 PM the night prior with normal mental status and was unable to arouse him the next morning and called EMS. Patient was arousable, lethargic as EMS transferring patient to stretcher. Denies trauma, denies seizure activity denies nausea vomiting or diarrhea. Denies abdominal pain. Denies chest pain, palpitations. Significant other further reports patient had been falling multiple times yesterday, called EMS but patient refused. On admission afebrile, normal WBC, hypertensive with systolic blood pressures in the 180s, heart rate stable, respiratory rate 16-20, requiring a nonrebreather to maintain O2 sats of 94-97%. Oxygen and has since been weaned down to high flow 8 L nasal cannula, maintaining O2 sats in the low 90s. Hemoglobin 16.9, platelets 210, MCV 107. D-dimer 0.79. Sodium 147, potassium 5.2, CO2 38, BUN 14, creatinine 0.83, blood sugars controlled, magnesium 2.5, lactic acid 0.6, T bili and LFTs within normal limits with the exception of alk phos mildly elevated 204. Ammonia 95, creatinine kinase 48, troponin negative 1, CRP 6.2 BNP 3490. UA negative. Toxicology detected barbiturates, phenytoin level subtherapeutic at 3.9, serum alcohol less than 10. Coronavirus, influenza A/B not detected. Head/C-spine CT reported no acute fracture, dislocation of the C-spine with no acute intracranial hemorrhage or midline shift. Chest x-ray reported cardiomegaly, diminished inspiration, elevated left hemidiaphragm, persistent right mid and lower lung opacity is, possibly acute infiltrates with new left upper lung acute infiltrate. Chest CT suboptimal ,reported no large central PE, moderate to severe 3 vessel CAD, new tiny bilateral pleural effusions, scattered atelectasis and/or consolidation bilaterally new from prior, new bilateral hilar adenopathy, new prominent bilateral hilar lymph nodes, prominent subcarinal 2.5 x 1.1 cm lymph node, fatty liver EKG reported sinus rhythm with occasional PVC, possible left atrial enlargement .received IV fluids including Banana bag, Levaquin, IV steroids, nebulized bronchodilators and a dose of Lasix IV push in the ER. 01/18/2021 Intubated during the night, FiO2 currently at 60% ,PEEP increased to 16. Sedated on diprovan. Chest x-ray reporting improvement in aeration, possible pleural thickening, possible minimal effusion, pneumonia- mild blunting of costophrenic angles with hemidiaphragm is partially obscured, bilateral patchy bilateral lung base density. Received lactulose last night, ammonia level down to 29. Alk phos trending down, 185. Receiving vancomycin and Levaquin,.T- max 99.9, WBC 8.3. CO2 36. Renal function stable. PICC line placed. Neurology currently at bedside, evaluating. 01/19/2021 ABGs noted, FiO2 decreased to 50%, PEEP decreased to 12. Chest x-ray similar, improving. Placed on sedation holiday, following commands. Telemetry sinus rhythm. Neuro workup in progress with EEG currently being completed at bedside. 01/22/21 extubated yesterday, maintaining O2 sats in the low 90s on 40% BiPAP. Mild confusion through the night and received Seroquel. Fluctuating h allucinations. Ammonia level 31. Maintained on Dilantin with levels up to 9.2. Seizure activity reported. Maintained on TPN. Continues on Levaquin. Chest x- ray reports similar findings, congestive heart failure, interstitial infiltrates, cardiomegaly. 01/23/2021 required BiPAP 40% throughout the night, currently on 3 L nasal cannula maintaining O2 sats of high 80s to low 90s. He received a dose of Lasix IV push yesterday, chest x-ray suggestive of CHF, diuresed well with 24-hour I&O reflecting a negative fluid balance. Chest x-ray continues to reflex CHF .Scheduled for another dose of Lasix today. Steroid tapering in progress, being converted to orals tomorrow morning. Continue on Levaquin, cultures negative. Consuming 100% of diet with no nausea vomiting or diarrhea. Denies abdominal pain. Denies chest pain, palpitations or shortness of breath. Telemetry sinus rhythm. Afebrile Objective - Vital Signs Vital signs: Vital Signs Temp 98.5 F 01/23/21 08:00 Pulse 72 01/23/21 12:37 Resp 20 01/23/21 09:00 BP 127/76 01/23/21 09:00 Pulse Ox 90 L 01/23/21 09:00 Intake & Output 01/22/21 01/23/21 01/23/21 18:59 06:59 18:59 Intake Total 345 260 80 Output Total 3065 695 205 Balance -4072 -634 -473 Weight 115.2 kg 111.4 kg Intake: IV 345 260 80 Levofloxacin 750Mg-D5w 100 Pmx 750 mg In Dextrose/ Water 1 150ml.bag @ 100 mls/hr IVPB Q24H [facility] Rx#: [id number] Sodium Chloride 0.9% 1, 345 160 80 000 ml @ 20 mls/hr IV . Q24H [facility] Rx#:[id number] Output: Urine 3065 695 205 Other: Voiding Method Indwelling Catheter Indwelling Catheter Indwelling Catheter - Exam General: Currently alert and oriented 3, Sitting up in bed, NAD. HEENT: [Normocephalic , atraumatic PERRL. EOMI. Neck: [Supple, unable to assess JVD, short neck Cardiac: [Heart regular in rate and rhythm. No S3. No S4. No clicks, rubs. No murmur.] Lungs: Equal air entry, bilateral bases diminished. Abdomen: [Soft , obese, distended, nontender , no guarding or rigidity, positive bowel sounds Extremities: [Positive edema, no clubbing no cyanosis, pos.normal pulses] Skin: [Warm and dry, No rash.] Neurologic: cranial nerves II through XII grossly intact, no focal deficits - Labs CBC & Chem 7: 01/23/21 03:25 01/23/21 03:25 Labs: Abnormal Lab Results - Last 24 Hours (Table) 01/22/21 01/23/21 01/23/21 Range/Units 21:31 03:25 03:25 Hct 53.8 H (39.0-53.0) % MCV 104.1 H (80.0-100.0) fL Plt Count 131 L (150-450) k/uL Creatinine 0.61 L (0.66-1.25) mg/dL POC Glucose (mg/dL) 248 H (75-99) mg/dL Alkaline Phosphatase 151 H (38-126) U/L Ammonia (<30) umol/L Total Protein 6.1 L (6.3-8.2) g/dL 01/23/21 01/23/21 01/23/21 Range/Units 06:37 08:53 11:18 Hct (39.0-53.0) % MCV (80.0-100.0) fL Plt Count (150-450) k/uL Creatinine (0.66-1.25) mg/dL POC Glucose (mg/dL) 132 H 152 H (75-99) mg/dL Alkaline Phosphatase (38-126) U/L Ammonia 35 H (<30) umol/L Total Protein (6.3-8.2) g/dL Microbiology - Last 24 Hours (Table) 01/17/21 11:00 Blood Culture - Final Blood No Growth after 144 hours 01/17/21 11:19 Blood Culture - Final Blood No Growth after 144 hours Assessment and Plan Assessment: Acute on chronic hypoxic, hypercapnic respiratory failure, secondary to acute bilateral pneumonia, possibly aspiration, possible community acquired, acute COPD exacerbation, acute CHF diastolic dysfunction secondary to fluid overload. wears 3 L nasal cannula O2 at home, requiring nonrebreather on admission, status post mechanical ventilation Acute on chronic CHF exacerbation, diastolic dysfunction, echo 05/18/2021 reporting LV function normal with EF 50-55% Acute metabolic and toxic encephalopathy secondary to the above, hyperammonemia Hepatic encephalopathy, ammonia 95, fatty liver on CTA, positive alcohol use, improving New prominent bilateral hilar lymph nodes, prominent subcarinal 2.5 x 1.1 cm lymph node Chronic interstitial lung disease Ongoing Nicotine dependence Recurrent falls, denies syncope, history of alcohol use Seizure disorder, Dilantin level subtherapeutic on admission, suspect noncompliance Gastroesophageal reflux disease Chronic renal failure, stage I Anemia of chronic disease History of CVA with residual left arm weakness Hypertension CAD, history of [facility] cardiac stent Obstructive sleep apnea Morbid Obesity, BMI 33.8 Hospital course: Continue on current medication regime ,monitoring and symptomatic treatment. Cleared by loan review analyst for transfer out of ICU to [facility] with remote telemetry .Continue titrating FiO2. Aggressive pulmonary toileting,cotinue nebulized bronchodilators, steroids, antibiotics. Converting to oral steroids in a.m. Prognosis guarded in a patient with multiple complex medical issues. The impression and plan of care has been dictated as directed. : I performed a history and examination of this patient, discussed the same with the dictator. I agree with the dictator's note ,documented as a scribe. Any additional findings or plans will be noted.
[2021-01-23] MEDS: MONTELUKAST 10 MG TAB PO SCH (15:07)
[2021-01-23 17:16] LABS: Glucose,Whole Blood 143 mg/dL (75-99)
[2021-01-23 20:13] LABS: Glucose,Whole Blood 104 mg/dL (75-99)
[2021-01-23] MEDS: LEVOFLOXACIN 750 MG TAB PO SCH (20:20)
[2021-01-23] MEDS: QUEtiapine 50 MG TAB PO SCH (20:20)
[2021-01-24] MEDS: HYDROcodone/APAP 7.5-325MG 1 EACH TAB PO PRN ×3 (05:36→20:53)
[2021-01-24 07:52] LABS: Glucose,Whole Blood 93 mg/dL (75-99)
[2021-01-24] MEDS: CHOLESTYRAMINE (WITH SUGAR) 4 GM PACKET PO SCH (08:37)
[2021-01-24] MEDS: INSULIN ASPART (NovoLOG) 100 UNIT/ML VIAL SQ SCH ×4 (08:37→20:53)
[2021-01-24] MEDS: LACTULOSE 20 GM/30 ML CUP PO SCH ×2 (08:37→20:54)
[2021-01-24] MEDS: CLOPIDOGREL 75 MG TAB PO SCH (08:38)
[2021-01-24] MEDS: allopurinoL 100 MG TAB PO SCH (08:38)
[2021-01-24] MEDS: predniSONE 20 MG TAB PO SCH (08:38)
[2021-01-24] MEDS: PANTOPRAZOLE 40 MG TABLET PO SCH (08:38)
[2021-01-24] MEDS: ISOSORBIDE MONONITRATE ER 30 MG TAB.ER.24H PO SCH (08:38)
[2021-01-24] MEDS: METOPROLOL TARTRATE 25 MG TAB PO SCH ×2 (08:38→20:53)
[2021-01-24] MEDS: ASPIRIN 325 MG TAB PO SCH (08:38)
[2021-01-24] MEDS: ATORVASTATIN 20 MG TAB PO SCH (08:38)
[2021-01-24] MEDS: PREGABALIN 100 MG CAP PO SCH ×3 (08:39→20:53)
[2021-01-24] MEDS: LORATADINE 10 MG TAB PO SCH (08:39)
[2021-01-24] MEDS: IPRATROPIUM-ALBUTEROL 3 ML NEB INHALATION SCH ×4 (08:52→19:42)
[2021-01-24] MEDS: THEOPHYLLINE 24 HOUR 400 MG CAP.ER.24H PO SCH (08:55)
[2021-01-24] MEDS: PARoxetine 20 MG TAB PO SCH (08:56)
[2021-01-24] MEDS: PHENYTOIN ORAL SUSP 100 MG/4 ML CUP PO SCH ×2 (08:56→20:54)
[2021-01-24 10:05] LABS: African American GFR (CKD) 118.9 (60.0-200.0); Albumin 3.6 g/dL (3.80-4.90); Albumin/Globulin Ratio 2.57 (1.60-3.17); Anion Gap 5.7 mmol/L (4.00-12.00); BUN/Creat Ratio 27.14 Ratio (12.00-20.00); Calcium 8.7 mg/dL (8.7-10.3); Carbon Dioxide 31.3 mmol/L (21.6-31.8); Globulin 1.4 g/dL (1.6-3.3); Non-African American GFR(CKD) 102.6 (60.0-200.0); Total Bilirubin 0.5 mg/dL (0.3-1.2)
[2021-01-24 11:42] LABS: Glucose,Whole Blood 166 mg/dL (75-99)
--- NOTE | 2021-01-24 12:18 | P.PN ---
Subjective Progress Note Date: 01/24/21 60-year-old white male patient with past medical history of COPD, chronic and ongoing history of tobacco dependence, coronary artery disease, previous history of myocardial infarction, previous placement of cardiac stents, seizure disorder, history of CVA with residual left arm weakness, chronic hypoxic respiratory failure and patient usually wears 3 L of oxygen at home who came into the emergency department on 01/17/2021 for evaluation of altered mental status, and worsening shortness of breath. Patient was quite lethargic and his could not arouse him in the morning and called EMS. Patient did become arousable but lethargic as EMS transferring him to the ER. His chest x-ray showed cardiomegaly and chronic changes with diminished inspiration and elevated left hemidiaphragm, and persistent right mid and lower lung opacities the clinic reflect residual acute infiltrates. He tested negative for COVID 19. CT of the brain and cervical spine showed no acute intracranial hemorrhage or midline shift, and no acute fracture or dislocation of the cervical spine. His admission blood work showed no evidence of leukocytosis, he is 1.0, was 9.9, hemoglobin was 16.9, hematocrit was elevated at 54.1, d-dimer was mildly elevated at 0.79 and CTA chest was completed showing no evidence of central saddle pulmonary embolism, however this was a suboptimal study, and smaller segmental subsegmental PEs could not be excluded, there was prominent cardiomegaly, and new tiny bilateral pleural effusions and scattered areas of atelectasis and/or consolidation bilaterally. There was new bilateral hilar adenopathy, and possible acute infectious process and CHF. Patient was initially placed on high flow nasal cannula, he was started on breathing treatments, diuretics, steroids, and antibiotics, as a day when he continued to be short of breath, and eventually was intubated and placed on mechanical ventilator and transferred to the intensive care unit, this morning he remains intubated and sedated, currently on assist control mode of ventilation with a rate of 24, multivitamins 450, FiO2 100%, and PEEP of 14, this was blood gases show pO2 of 87, pCO2 of 59, and pH of 7.43. He is currently on 0.9 normal saline at KVO, and improving and is currently at 30 weeks per kilo per minute, he is in sinus mechanism, he is not requiring any vasopressor support, current antibiotic coverage is Levaquin, patient's microbiology results from previous admissions has been reviewed and there is evidence of Enterobacter and Klebsiella pneumonia in his sputum cultures from previous admissions. Today's lab work has been reviewed showing white blood count 8.3, hemoglobin of 14.6, platelet count of 173, CO2 of 36, the rest of the electrolytes and renal profile were unremarkable, alkaline phosphatase is 185, otherwise AST and OT were within normal limits. On 01/19/2021 patient seen in follow-up in the intensive care unit, he remains intubated, sedated on mechanical ventilator, on assist control mode of ventilation with a rate of 22, tidal is 450, FiO2 of 40% and PEEP of 16, this was blood gas shows pO2 of 70, pCO2 59, and pH is 7.42, chest x-ray today shows bibasilar increased density and it is difficult to exclude small effusions, no evident pneumothorax, ET tube, orogastric tube, PICC line are in appropriate positions. Not on any vasoactive drips, not on any vasopressor support, he re tra on combination of vancomycin and Levaquin for antibiotic coverage for possibility of pneumonia, blood and sputum cultures have been sent and are pending, so far showing no growth. Today's labs have been reviewed showing a white blood cell count is 7.4, hemoglobin of 14.2, sodium is 145, potassium 4.2, chloride is 108, CO2 is 36, B1 of 18, creatinine 0.65, alkaline phosphatase is improving and is down to 165, AST is 14, ALT is 11. Patient has been getting intermittent doses of Lasix, is however in positive fluid balance. No acute events overnight. Is producing urine in the order of 25-30 ML per hour. On 01/20/2021 patient seen in follow-up in intensive care unit, he remains intubated, sedated on mechanical ventilator, with assist control mode of ventilation rate of 22, tidal volume was 450, and FiO2 of 50% PEEP of 12, this morning's blood gas shows pO2 of 77, pCO2 57, and pH of 7.39, patient is currently on 0.9 normal saline at a rate of 125 ML per hour, Diprivan is a 55 mics per kilo per minute and TPN is at 30 ML per hour, today's chest x-ray shows improvement in the appearance of left lower lobe atelectasis or infiltrates, and there is prominent interstitium and patchy bilateral airspace disease. Hemodynamically patient is stable, in sinus mechanism with a rate of 50 BPM, not on any vasopressor support. Neurology is following with the patient for altered mental status, history of seizures, and feels that his altered mentation is related to toxic metabolic encephalopathy which is multifactorial. EEG was completed showing background slowing of rdyy-hw-[id number] degree, this is suggestive of generalized cerebral dysfunction seen in toxic metabolic encephalopathy or due to diffuse structural brain abnormality. No epileptiform activity was seen. In terms of his pneumonia patient remains on a combination of Levaquin and vancomycin, and blood and sputum cultures are pending, sputum preliminary culture shows rare epithelial cells, rare white blood cells, and moderate gram-positive cocci in clusters. Final culture is pending. Preliminary blood culture is still in progress. The blood work has been reviewed, white blood cell, 7.4, hemoglobin is 14.2. Sodium is 140, potassium is 4.1, chloride is 105, CO2 is 31, BUN of 15 and creatinine 0.51, ammonia level on yesterday's labs was improving and was down to 23. Patient remains on antibiotics as mentioned above, IV Solu-Medrol 60 mg every 6 hours, breathing treatments On 01/22/2021 patient seen in follow-up in intensive care unit, he was successfully weaned and extubated from mechanical ventilation yesterday on 01/21/2021, tolerating extubation quite well so far, he is awake and alert, he is oriented 3, he is currently on 4 L of oxygen, maintaining O2 saturations above 90%, he is breathing comfortably, denies any worsening dyspnea, no chest discomfort, no cough or hemoptysis, he is afebrile, hemodynamically he stable, he is on 0.9 normal saline at a rate of 125 ML per hour, TPN is infusing at 60 mL per hour. Abdomen is soft, nontender, at times patient has been noted to be a bit confused, he seems quite appropriate at this time. At times he was noted to be hallucinating as well. Vital signs have been stable, no fever or chills, today's chest x-ray shows changes consistent with congestive heart failure, interstitial infiltrates, cardiomegaly. He is on Levaquin for abiotic coverage, his sputum and blood cultures have been negative thus far, this morning's blood work has been reviewed showing white blood cell count of 8.0, hemoglobin of 15.6, electrolytes and renal profile were within normal limits, BUN of 30 creatinine 0.5, ammonia level is 31. Seems fairly comfortable, but generally swollen, we will likely benefit from diuretics On 01/23/2021 patient seen in follow-up in the intensive care unit, he is awake and alert, in no acute distress, he was successfully weaned and extubated from mechanical ventilator couple days ago, tolerating extubation quite well, he is o n 3 L of oxygen, breathing comfortably, he was on BiPAP last night with FiO2 of 40%, he is currently on 3 L of oxygen, no fever or chills, vitals have been stable, no acute events overnight, today's chest x-ray shows changes consistent with CHF. Patient was given a dose of Lasix yesterday, and he is in -3.1 L fluid balance over the last 24 hours. His labs today show white blood cell count of 8.7, hemoglobin of 16.8, electrolytes and renal profile were unremarkable. His blood and sputum cultures have been negative. The patient is seen today 01/24/2021 follow-up on the regular medical floor. He is currently sitting up in a chair at the bedside. Awake and alert in no acute distress. He is currently maintaining O2 saturations in the 90s on 3 L/m per nasal cannula. Alternating with BiPAP 14/6 at 40% FiO2 mainly at night. Blood and sputum cultures reveal no growth. Sodium 143. Potassium 4.0. Creatinine 0.7. AST 27. ALT 29. Remains on DuoNeb inhalations, theophylline, prednisone, Singulair, and medics in the form of Levaquin. Objective - Vital Signs Vital signs: Vital Signs Temp 98.5 F 01/24/21 08:01 Pulse 90 01/24/21 09:04 Resp 18 01/24/21 09:04 BP 136/72 01/24/21 08:01 Pulse Ox 91 L 01/24/21 08:52 Intake & Output 01/23/21 01/24/21 01/24/21 18:59 06:59 18:59 Intake Total 80 400 Output Total 455 250 Balance -375 -250 400 Weight 111.4 kg Intake: IV 80 Sodium Chloride 0.9% 1, 80 000 ml @ 20 mls/hr IV . Q24H [facility] Rx#:[id number] Oral 400 Output: Urine 455 250 Stool 0 Other: Voiding Method Indwelling Catheter Bedside Commode - Exam GENERAL EXAM: Alert, pleasant 60-year-old gentleman, on 3 L nasal cannula, up in a chair, comfortable in no apparent distress. HEAD: Normocephalic. EYES: Normal reaction of pupils, equal size. NOSE: Clear with pink turbinates. THROAT: No erythema or exudates. NECK: No masses, no JVD. CHEST: No chest wall deformity. LUNGS: Equal air entry with few scattered rhonchi, end expiratory wheeze, diminished. CVS: S1 and S2 normal with no audible murmur, regular rhythm. ABDOMEN: No hepatosplenomegaly, normal bowel sounds, no guarding or rigidity. SPINE: No scoliosis or deformity SKIN: No rashes CENTRAL NERVOUS SYSTEM: No focal deficits, tone is normal in all 4 extremities. EXTREMITIES: There is no peripheral edema. No clubbing, no cyanosis. Peripheral pulses are intact. - Labs CBC & Chem 7: 01/23/21 03:25 01/24/21 05:19 Labs: Abnormal Lab Results - Last 24 Hours (Table) 01/23/21 01/23/21 01/24/21 Range/Units 17:15 20:12 05:19 BUN/Creatinine Ratio 27.14 H (12.00-20.00) Ratio Glucose 137 H (70-110) mg/dL POC Glucose (mg/dL) 143 H 104 H (75-99) mg/dL Alkaline Phosphatase 151 H (41-126) U/L Total Protein 5.0 L (6.2-8.2) g/dL Albumin 3.60 L (3.80-4.90) g/dL Globulin 1.4 L (1.6-3.3) g/dL 01/24/21 Range/Units 11:37 BUN/Creatinine Ratio (12.00-20.00) Ratio Glucose (70-110) mg/dL POC Glucose (mg/dL) 166 H (75-99) mg/dL Alkaline Phosphatase (41-126) U/L Total Protein (6.2-8.2) g/dL Albumin (3.80-4.90) g/dL Globulin (1.6-3.3) g/dL Microbiology - Last 24 Hours (Table) 01/17/21 11:00 Blood Culture - Final Blood No Growth after 144 hours 01/17/21 11:19 Blood Culture - Final Blood No Growth after 144 hours Assessment and Plan Assessment: 1 Acute on chronic hypoxic respiratory failure related to acute exacerbation of COPD, and possibility of pneumonia is not entirely excluded, and patient was intubated on 01/17/2021, extubated on 01/21/2021 2 Acute exacerbation of CHF with most recent documented normal EF and diastolic dysfunction 3 Bilateral hilar lymph nodes, likely reactive, will follow to monitor for any change 4 Altered mental status related to toxic metabolic encephalopathy 5 Hepatic encephalopathy with elevated ammonia level, improving 6 Chronic and ongoing nicotine dependence 7 History of seizure disorder 8 History of coronary artery disease with previous stenting and history of myocardial infarction 9 Chronic kidney disease 10 Anemia of chronic disease 11 History of CVA with residual left arm weakness 12 Chronic systolic CHF and ischemic heart disease 13 Obstructive sleep apnea Plan: The patient was seen and evaluated by Dr. Chapman He is currently stable from the pulmonary standpoint Remains on Levaquin, prednisone, bronchodilators Probable discharge in the a.m. We will continue to follow I, the cosigning physician, performed a history & physical examination of the patient. Lungs sounds few scattered rhonchi, end expiratory wheeze, diminished. Maintaining good O2 saturations in the 90s on 3 L/m per nasal cannula. I discussed the assessment and plan of care with my nurse practitioner, Mona Grove. I attest to the above note as dictated by her.
--- NOTE | 2021-01-24 15:05 | P.PN ---
Subjective Progress Note Date: 01/24/21 This is 60-year-old gentleman follows with Dr. Teran in the office with past medical history of CAD-myocardial infarction, cardiac stents, seizure disorder, CVA with residual left arm weakness SLE, COPD on 3 L home O2, nicotine dependence-2 packs per day, brought to the ER via EMS with complaints of altered mental status, worsening shortness of breath. Significant other states patient had gone to bed at 11 PM the night prior with normal mental status and was unable to arouse him the next morning and called EMS. Patient was arousable, lethargic as EMS transferring patient to stretcher. Denies trauma, denies seizure activity denies nausea vomiting or diarrhea. Denies abdominal pain. Denies chest pain, palpitations. Significant other further reports patient had been falling multiple times yesterday, called EMS but patient refused. On admission afebrile, normal WBC, hypertensive with systolic blood pressures in the 180s, heart rate stable, respiratory rate 16-20, requiring a nonrebreather to maintain O2 sats of 94-97%. Oxygen and has since been weaned down to high flow 8 L nasal cannula, maintaining O2 sats in the low 90s. Hemoglobin 16.9, platelets 210, MCV 107. D-dimer 0.79. Sodium 147, potassium 5.2, CO2 38, BUN 14, creatinine 0.83, blood sugars controlled, magnesium 2.5, lactic acid 0.6, T bili and LFTs within normal limits with the exception of alk phos mildly elevated 204. Ammonia 95, creatinine kinase 48, troponin negative 1, CRP 6.2 BNP 3490. UA negative. Toxicology detected barbiturates, phenytoin level subtherapeutic at 3.9, serum alcohol less than 10. Coronavirus, influenza A/B not detected. Head/C-spine CT reported no acute fracture, dislocation of the C-spine with no acute intracranial hemorrhage or midline shift. Chest x-ray reported cardiomegaly, diminished inspiration, elevated left hemidiaphragm, persistent right mid and lower lung opacity is, possibly acute infiltrates with new left upper lung acute infiltrate. Chest CT suboptimal ,reported no large central PE, moderate to severe 3 vessel CAD, new tiny bilateral pleural effusions, scattered atelectasis and/or consolidation bilaterally new from prior, new bilateral hilar adenopathy, new prominent bilateral hilar lymph nodes, prominent subcarinal 2.5 x 1.1 cm lymph node, fatty liver EKG reported sinus rhythm with occasional PVC, possible left atrial enlargement .received IV fluids including Banana bag, Levaquin, IV steroids, nebulized bronchodilators and a dose of Lasix IV push in the ER. 01/18/2021 Intubated during the night, FiO2 currently at 60% ,PEEP increased to 16. Sedated on diprovan. Chest x-ray reporting improvement in aeration, possible pleural thickening, possible minimal effusion, pneumonia- mild blunting of costophrenic angles with hemidiaphragm is partially obscured, bilateral patchy bilateral lung base density. Received lactulose last night, ammonia level down to 29. Alk phos trending down, 185. Receiving vancomycin and Levaquin,.T- max 99.9, WBC 8.3. CO2 36. Renal function stable. PICC line placed. Neurology currently at bedside, evaluating. 01/19/2021 ABGs noted, FiO2 decreased to 50%, PEEP decreased to 12. Chest x-ray similar, improving. Placed on sedation holiday, following commands. Telemetry sinus rhythm. Neuro workup in progress with EEG currently being completed at bedside. 01/22/21 extubated yesterday, maintaining O2 sats in the low 90s on 40% BiPAP. Mild confusion through the night and received Seroquel. Fluctuating h allucinations. Ammonia level 31. Maintained on Dilantin with levels up to 9.2. Seizure activity reported. Maintained on TPN. Continues on Levaquin. Chest x- ray reports similar findings, congestive heart failure, interstitial infiltrates, cardiomegaly. 01/23/2021 required BiPAP 40% throughout the night, currently on 3 L nasal cannula maintaining O2 sats of high 80s to low 90s. He received a dose of Lasix IV push yesterday, chest x-ray suggestive of CHF, diuresed well with 24-hour I&O reflecting a negative fluid balance. Chest x-ray continues to reflex CHF .Scheduled for another dose of Lasix today. Steroid tapering in progress, being converted to orals tomorrow morning. Continue on Levaquin, cultures negative. Consuming 100% of diet with no nausea vomiting or diarrhea. Denies abdominal pain. Denies chest pain, palpitations or shortness of breath. Telemetry sinus rhythm. Afebrile. 01/24/2021 maintained on nebulized bronchodilators, steroids, and Levaquin . Steroids converted to oral today. significant clinical improvement maintaining O2 sats in the 90s on 3 L nasal cannula. Did require BiPAP last night. Complains of right hand tenderness, edema and left rib cage pain. X-rays ordered. Continue to 100% of breakfast with no nausea vomiting or diarrhea. Afebrile, T-max 100. Denies chest pain, palpitations. Objective - Vital Signs Vital signs: Vital Signs Temp 98.9 F 01/24/21 14:00 Pulse 81 01/24/21 14:00 Resp 16 01/24/21 14:00 BP 130/72 01/24/21 14:00 Pulse Ox 90 L 01/24/21 14:00 Intake & Output 01/23/21 01/24/21 01/24/21 18:59 06:59 18:59 Intake Total 80 800 Output Total 455 250 Balance -375 -250 800 Weight 111.4 kg Intake: IV 80 Sodium Chloride 0.9% 1, 80 000 ml @ 20 mls/hr IV . Q24H [facility] Rx#:[id number] Oral 800 Output: Urine 455 250 Stool 0 Other: Voiding Method Indwelling Catheter Bedside Commode - Exam General: Currently alert and oriented 3, Sitting up at side of bed, NAD. HEENT: [Normocephalic , atraumatic PERRL. EOMI. Neck: [Supple, unable to assess JVD, short neck Cardiac: [Heart regular in rate and rhythm. No S3. No S4. No clicks, rubs. No murmur.] Lungs: Better air entry, bilateral bases diminished. Left lateral rib station tender Abdomen: [Soft , obese, distended, nontender , no guarding or rigidity, positive bowel sounds Extremities: [Positive edema, no clubbing no cyanosis, pos.normal pulses. Right hand/wrist edema-tender, radiology films pending Skin: [Warm and dry, No rash.] Neurologic: cranial nerves II through XII grossly intact, no focal deficits - Labs CBC & Chem 7: 01/23/21 03:25 01/24/21 05:19 Labs: Abnormal Lab Results - Last 24 Hours (Table) 04/27/21 04/27/21 04/28/21 Range/Units 17:15 20:12 05:19 BUN/Creatinine Ratio 27.14 H (12.00-20.00) Ratio Glucose 137 H (70-110) mg/dL POC Glucose (mg/dL) 143 H 104 H (75-99) mg/dL Alkaline Phosphatase 151 H (41-126) U/L Total Protein 5.0 L (6.2-8.2) g/dL Albumin 3.60 L (3.80-4.90) g/dL Globulin 1.4 L (1.6-3.3) g/dL 01/24/21 Range/Units 11:37 BUN/Creatinine Ratio (12.00-20.00) Ratio Glucose (70-110) mg/dL POC Glucose (mg/dL) 166 H (75-99) mg/dL Alkaline Phosphatase (41-126) U/L Total Protein (6.2-8.2) g/dL Albumin (3.80-4.90) g/dL Globulin (1.6-3.3) g/dL Microbiology - Last 24 Hours (Table) 01/17/21 11:00 Blood Culture - Final Blood No Growth after 144 hours 01/17/21 11:19 Blood Culture - Final Blood No Growth after 144 hours Assessment and Plan Assessment: Acute on chronic hypoxic, hypercapnic respiratory failure, secondary to acute bilateral pneumonia, possibly aspiration, possible community acquired, acute COPD exacerbation, acute CHF diastolic dysfunction secondary to fluid overload. wears 3 L nasal cannula O2 at home, requiring nonrebreather on admission, status post mechanical ventilation Acute on chronic CHF exacerbation, diastolic dysfunction, echo 05/18/2021 r eporting LV function normal with EF 50-55% Acute metabolic and toxic encephalopathy secondary to the above, hyperammonemia Hepatic encephalopathy, ammonia 95, fatty liver on CTA, positive alcohol use, improving New prominent bilateral hilar lymph nodes, prominent subcarinal 2.5 x 1.1 cm lymph node Chronic interstitial lung disease Ongoing Nicotine dependence Recurrent falls, denies syncope, history of alcohol use Seizure disorder, Dilantin level subtherapeutic on admission, suspect nonco mpliance Gastroesophageal reflux disease Chronic renal failure, stage I Anemia of chronic disease History of CVA with residual left arm weakness Hypertension CAD, history of SC cardiac stent Obstructive sleep apnea Morbid Obesity, BMI 33.8 Hospital course: Continue on current medication regime ,monitoring and symptomatic treatment. X-rays of right hand/wrist and left rib cage ordered. Stool softeners for constipation .Maintain aggressive pulmonary toileting,cotinue nebulized bronchodilators, steroids, antibiotics. Discharge planning in progress for the next 24-48 hours.Patient has required BiPAP q night-further recommendations at discharge as per pulmonary. The impression and plan of care has been dictated as directed. : I performed a history and examination of this patient, discussed the same with the dictator. I agree with the dictator's note ,documented as a scribe. Any additional findings or plans will be noted.
[2021-01-24] MEDS: MONTELUKAST 10 MG TAB PO SCH (15:09)
[2021-01-24] MEDS: FUROSEMIDE 80 MG TAB PO SCH (16:45)
[2021-01-24 17:15] LABS: Glucose,Whole Blood 128 mg/dL (75-99)
--- NOTE | 2021-01-24 20:05 | XR ---
EXAMINATION TYPE: XR ribs LT DATE OF EXAM: 01/24/2021 COMPARISON: NONE HISTORY: Pain TECHNIQUE: 4 views FINDINGS: There is some infiltrate and atelectasis in the left lower lobe. There is poor inspiration and some elevation of the left diaphragm. There is slight blunting left costophrenic angle. There is possible step deformity in the left anterior ninth rib. IMPRESSION: Pleural reaction and atelectasis and infiltrate left lung base. No pneumothorax. Possible nondisplaced fracture anterior left ninth rib. Calcific tendinitis noted at the left shoulder joint.
--- NOTE | 2021-01-24 20:07 | XR ---
EXAMINATION TYPE: XR wrist complete RT DATE OF EXAM: 01/24/2021 COMPARISON: NONE HISTORY: Pain TECHNIQUE: 4 views FINDINGS: There is narrowing and spurring at the first carpometacarpal joint. I see no fracture nor d islocation. There are no erosions. There is no subluxation. There is some spurring at the third MP naomy int. Scaphoid is intact. IMPRESSION: There are some osteoarthritic changes. No fracture.
[2021-01-24 20:10] LABS: Glucose,Whole Blood 136 mg/dL (75-99)
[2021-01-24] MEDS: LEVOFLOXACIN 750 MG TAB PO SCH (20:53)
[2021-01-24] MEDS: QUEtiapine 50 MG TAB PO SCH (20:53)
[2021-01-24] MEDS: SENNOSIDES-DOCUSATE SODIUM 1 EACH TAB PO SCH (20:53)
[2021-01-25] MEDS: HYDROcodone/APAP 7.5-325MG 1 EACH TAB PO PRN (05:24)
[2021-01-25 06:47] VITALS: BP 177/67; RESP 14; TEMP 98.5
[2021-01-25 07:36] LABS: Glucose,Whole Blood 117 mg/dL (75-99)
[2021-01-25] MEDS: IPRATROPIUM-ALBUTEROL 3 ML NEB INHALATION SCH (08:04)
[2021-01-25] MEDS: ISOSORBIDE MONONITRATE ER 30 MG TAB.ER.24H PO SCH (08:17)
[2021-01-25] MEDS: CLOPIDOGREL 75 MG TAB PO SCH (08:17)
[2021-01-25] MEDS: LORATADINE 10 MG TAB PO SCH (08:17)
[2021-01-25] MEDS: LACTULOSE 20 GM/30 ML CUP PO SCH (08:17)
[2021-01-25] MEDS: METOPROLOL TARTRATE 25 MG TAB PO SCH (08:17)
[2021-01-25] MEDS: INSULIN ASPART (NovoLOG) 100 UNIT/ML VIAL SQ SCH (08:17)
[2021-01-25] MEDS: FUROSEMIDE 80 MG TAB PO SCH (08:17)
[2021-01-25] MEDS: PREGABALIN 100 MG CAP PO SCH (08:17)
[2021-01-25] MEDS: ASPIRIN 325 MG TAB PO SCH (08:17)
[2021-01-25] MEDS: predniSONE 20 MG TAB PO SCH (08:18)
[2021-01-25] MEDS: PHENYTOIN ORAL SUSP 100 MG/4 ML CUP PO SCH (08:18)
[2021-01-25] MEDS: SENNOSIDES-DOCUSATE SODIUM 1 EACH TAB PO SCH (08:18)
[2021-01-25] MEDS: CHOLESTYRAMINE (WITH SUGAR) 4 GM PACKET PO SCH (08:18)
[2021-01-25] MEDS: ATORVASTATIN 20 MG TAB PO SCH (08:18)
[2021-01-25] MEDS: MONTELUKAST 10 MG TAB PO SCH (08:18)
[2021-01-25] MEDS: PANTOPRAZOLE 40 MG TABLET PO SCH (08:18)
[2021-01-25] MEDS: allopurinoL 100 MG TAB PO SCH (08:18)
[2021-01-25] MEDS: THEOPHYLLINE 24 HOUR 400 MG CAP.ER.24H PO SCH (08:19)
[2021-01-25] MEDS: PARoxetine 20 MG TAB PO SCH (08:20)
[2021-01-25 08:21] VITALS: PULSE 69
[2021-01-25 09:35] LABS: African American GFR (CKD) 126.7 (60.0-200.0); Albumin 3.7 g/dL (3.80-4.90); Albumin/Globulin Ratio 2.64 (1.60-3.17); Anion Gap 4.8 mmol/L (4.00-12.00); BUN/Creat Ratio 26.67 Ratio (12.00-20.00); Calcium 8.4 mg/dL (8.7-10.3); Carbon Dioxide 34.2 mmol/L (21.6-31.8); Globulin 1.4 g/dL (1.6-3.3); Non-African American GFR(CKD) 109.3 (60.0-200.0); Potassium 3.8 mmol/L (3.5-5.5); Total Bilirubin 0.4 mg/dL (0.3-1.2); Total Protein 5.1 g/dL (6.2-8.2)
--- NOTE | 2021-01-25 09:35 | P.DS ---
Providers Date of admission: 01/17/21 14:41 Expected date of discharge: 01/25/21 Attending physician: Mikal Cates Consults: 01/17/21 14:41 Consult Physician Routine Consulting Provider: Kaela Agarwal Consult Reason/Comments: COPD, CHF Do you want consulting provider notified?: Yes Consult Physician Routine Consulting Provider: Arthur Kelly Consult Reason/Comments: Altered mental status Do you want consulting provider notified?: Yes Primary care physician: Damir Teran [facility] Course: his is 60-year-old gentleman follows with Dr. Teran in the office with past medical history of CAD-myocardial infarction, cardiac stents, seizure disorder, CVA with residual left arm weakness SLE, COPD on 3 L home O2, nicotine dependence-2 packs per day, brought to the ER via EMS with complaints of altered mental status, worsening shortness of breath. Significant other states patient had gone to bed at 11 PM the night prior with normal mental status and was unable to arouse him the next morning and called EMS. Patient was arousable, lethargic as EMS [facility]. Denies trauma, denies seizure activity denies nausea vomiting or diarrhea. Denies abdominal pain. Denies chest pain, palpitations. Significant other further reports patient had been falling multiple times yesterday, called EMS but patient refused. On admission afebrile, normal WBC, hypertensive with systolic blood pressures in the 180s, heart rate stable, respiratory rate 16-20, requiring a nonrebreather to maintain O2 sats of 94-97%. Oxygen and has since been weaned down to high flow 8 L nasal cannula, maintaining O2 sats in the low 90s. Hemoglobin 16.9, platelets 210, MCV 107. D-dimer 0.79. Sodium 147, potassium 5.2, CO2 38, BUN 14, creatinine 0.83, blood sugars controlled, magnesium 2.5, lactic acid 0.6, T bili and LFTs within normal limits with the exception of alk phos mildly elevated 204. Ammonia 95, creatinine kinase 48, troponin negative 1, CRP 6.2 BNP 3490. UA negative. Toxicology detected barbiturates, phenytoin level subtherapeutic at 3.9, serum alcohol less than 10. Coronavirus, influenza A/B not detected. Head/C-spine CT reported no acute fracture, dislocation of the C-spine with no acute intracranial hemorrhage or midline shift. Chest x-ray reported cardiomegaly, diminished inspiration, elevated left hemidiaphragm, persistent right mid and lower lung opacity is, possibly acute infiltrates with new left upper lung acute infiltrate. Chest CT suboptimal ,reported no large central PE, moderate to severe 3 vessel CAD, new tiny bilateral pleural effusions, scattered atelectasis and/or consolidation bilaterally new from prior, new bilateral hilar adenopathy, new prominent bilateral hilar lymph nodes, prominent subcarinal 2.5 x 1.1 cm lymph node, fatty liver EKG reported sinus rhythm with occasional PVC, possible left atrial enlargement .received IV fluids including Banana bag, Levaquin, IV steroids, nebulized bronchodilators and a dose of Lasix IV push in the ER. 01/18/2021 Intubated during the night, FiO2 currently at 60% ,PEEP increased to 16. Sedated on diprovan. Chest x-ray reporting improvement in aeration, possible pleural thickening, possible minimal effusion, pneumonia- mild blunting of costophrenic angles with hemidiaphragm is partially obscured, bilateral patchy bilateral lung base density. Received lactulose last night, ammonia level down to 29. Alk phos trending down, 185. Receiving vancomycin and Levaquin,.T- max 99.9, WBC 8.3. CO2 36. Renal function stable. PICC line placed. Neurology currently at bedside, evaluating. 01/19/2021 ABGs noted, FiO2 decreased to 50%, PEEP decreased to 12. Chest x-ray similar, improving. Placed on sedation holiday, following commands. Telemetry sinus rhythm. Neuro workup in progress with EEG currently being completed at bedside. 01/22/21 extubated yesterday, maintaining O2 sats in the low 90s on 40% BiPAP. Mild confusion through the night and received Seroquel. Fluctuating hallucinations. Ammonia level 31. Maintained on Dilantin with levels up to 9.2. Seizure activity reported. Maintained on TPN. Continues on Levaquin. Chest x-ray reports similar findings, congestive heart failure, interstitial infiltrates, cardiomegaly. 01/23/2021 required BiPAP 40% throughout the night, currently on 3 L nasal cannula maintaining O2 sats of high 80s to low 90s. He received a dose of Lasix IV push yesterday, chest x-ray suggestive of CHF, diuresed well with 24-hour I&O reflecting a negative fluid balance. Chest x-ray continues to reflex CHF .Sche duled for another dose of Lasix today. Steroid tapering in progress, being converted to orals tomorrow morning. Continue on Levaquin, cultures negative. Consuming 100% of diet with no nausea vomiting or diarrhea. Denies abdominal pain. Denies chest pain, palpitations or shortness of breath. Telemetry sinus rhythm. Afebrile. 01/24/2021 maintained on nebulized bronchodilators, steroids, and Levaquin . Steroids converted to oral today. significant clinical improvement maintaining O2 sats in the 90s on 3 L nasal cannula. Did require BiPAP last night. Complains of right hand tenderness, edema and left rib cage pain. X-rays ordered. Continue to 100% of breakfast with no nausea vomiting or diarrhea. Afebrile, T-max 100. Denies chest pain, palpitations. 01/25/2021: patient is doing well and is cleared by consultants. will continue Levaquin for outpatinet. he will f/u tin the offic 02/01/2021. D/C DX Acute on chronic hypoxic, hypercapnic respiratory failure, secondary to acute bilateral pneumonia Acute on chronic CHF exacerbation, diastolic dysfunction, Acute metabolic and toxic encephalopathy, resolved Hepatic encephalopathy, resolved New prominent bilateral hilar lymph nodes, prominent subcarinal 2.5 x 1.1 cm lymph node Chronic interstitial lung disease Ongoing Nicotine dependence Recurrent falls, denies syncope, history of alcohol use Seizure disorder, Gastroesophageal reflux disease Chronic renal failure, stage I Anemia of chronic disease History of CVA with residual left arm weakness Hypertension CAD, history of [place] cardiac stent Obstructive sleep apnea Morbid Obesity, BMI 33.8 Patient Condition at Discharge: Fair Plan - Discharge Summary Discharge Rx Participant: No New Discharge Prescriptions: New Levofloxacin [Levaquin] 750 mg PO DAILY #5 tab predniSONE [Deltasone] 40 mg PO DAILY #30 tab Furosemide [Lasix] 40 mg PO DAILY #30 tab Continue Metoprolol Tartrate [Lopressor] 25 mg PO BID #60 tab PARoxetine [Paxil] 20 mg PO DAILY Loratadine [Claritin] 10 mg PO DAILY Phenytoin Sodium Extended [Dilantin] 200 mg PO BID Clopidogrel Bisulfate [Clopidogrel] 75 mg PO DAILY Magnesium Oxide [Mag-Ox] 400 mg PO DAILY #30 tablet rOPINIRole HCL [Requip] 1 mg PO BID Theophylline Anhydrous [Theophylline] 400 mg PO DAILY Mycophenolate Mofetil [Cellcept] 1,000 mg PO DAILY allopurinoL [Zyloprim] 100 mg PO DAILY Ergocalciferol (Vitamin D2) [Vitamin D2] 50,000 unit PO Q14D Montelukast [Singulair] 10 mg PO DAILY@1500 Nitroglycerin Sl Tabs [Nitrostat] 0.4 mg SUBLINGUAL Q5M PRN PRN Reason: Chest Pain Potassium Chloride [Klor-Con 20] 20 meq PO Q48H Potassium Chloride [Klor-Con 20] 40 meq PO QAM Isosorbide Mononitrate ER [Imdur] 30 mg PO DAILY #30 tab Furosemide [Lasix] 80 mg PO BID hydrOXYzine HCL [Atarax] 25 mg PO Q8H PRN PRN Reason: Anxiety mycophenolate mofetiL [Cellcept] 500 mg PO HS HYDROcodone/APAP 7.5-325MG [[place] 7.5-325] 1 tab PO Q6H PRN PRN Reason: Pain Famotidine 20 mg PO DAILY modafiniL [Provigil] 200 mg PO DAILY Multivitamins, Thera [Multivitamin (formulary)] 1 tab PO DAILY Aspirin 325 mg PO DAILY metFORMIN HCL [metFORMIN HCL ER] 1,500 mg PO W/SUPPER Tiotropium [place] [Spiriva] 1 cap INHALATION RT-DAILY Fluticasone Propionate [Flovent Hfa 220 mcg] 2 puff INHALATION RT-BID Atorvastatin [Lipitor] 20 mg PO DAILY Albuterol Sulfate [Proair Hfa] 2 puff INHALATION RT-Q6H PRN PRN Reason: Shortness Of Breath Pregabalin [Lyrica] 200 mg PO TID Cholestyramine (with Sugar) [Cholestyramine Packet] 4 gm PO DAILY Discharge Medication List Metoprolol Tartrate [Lopressor] 25 mg PO BID #60 tab 09/18/15 [Rx] Loratadine [Claritin] 10 mg PO DAILY 05/21/16 [History] PARoxetine [Paxil] 20 mg PO DAILY 05/21/16 [History] Phenytoin Sodium Extended [Dilantin] 200 mg PO BID 05/21/16 [History] Clopidogrel Bisulfate [Clopidogrel] 75 mg PO DAILY 05/22/16 [History] Magnesium Oxide [Mag-Ox] 400 mg PO DAILY #30 tablet 07/11/16 [Rx] rOPINIRole HCL [Requip] 1 mg PO BID 08/30/16 [History] Mycophenolate Mofetil [Cellcept] 1,000 mg PO DAILY 10/03/17 [History] Theophylline Anhydrous [Theophylline] 400 mg PO DAILY 10/03/17 [History] Ergocalciferol (Vitamin D2) [Vitamin D2] 50,000 unit PO Q14D 02/04/18 [History] Montelukast [Singulair] 10 mg PO DAILY@1500 02/04/18 [History] Nitroglycerin Sl Tabs [Nitrostat] 0.4 mg SUBLINGUAL Q5M PRN 02/04/18 [History] Potassium Chloride [Klor-Con 20] 20 meq PO Q48H 02/04/18 [History] Potassium Chloride [Klor-Con 20] 40 meq PO QAM 02/04/18 [History] allopurinoL [Zyloprim] 100 mg PO DAILY 02/04/18 [History] Isosorbide Mononitrate ER [Imdur] 30 mg PO DAILY #30 tab 02/05/18 [Rx] Furosemide [Lasix] 80 mg PO BID 08/05/19 [History] hydrOXYzine HCL [Atarax] 25 mg PO Q8H PRN 08/05/19 [History] mycophenolate mofetiL [Cellcept] 500 mg PO HS 08/05/19 [History] Aspirin 325 mg PO DAILY 05/12/20 [History] Famotidine 20 mg PO DAILY 05/12/20 [History] HYDROcodone/APAP 7.5-325MG [[place] 7.5-325] 1 tab PO Q6H PRN 05/12/20 [History] Multivitamins, Thera [Multivitamin (formulary)] 1 tab PO DAILY 05/12/20 [History] modafiniL [Provigil] 200 mg PO DAILY 05/12/20 [History] Albuterol Sulfate [Proair Hfa] 2 puff INHALATION RT-Q6H PRN 11/15/20 [History] Atorvastatin [Lipitor] 20 mg PO DAILY 11/15/20 [History] Fluticasone Propionate [Flovent Hfa 220 mcg] 2 puff INHALATION RT-BID 11/15/20 [History] Tiotropium Ivins [Spiriva] 1 cap INHALATION RT-DAILY 11/15/20 [History] metFORMIN HCL [metFORMIN HCL ER] 1,500 mg PO W/SUPPER 11/15/20 [History] Cholestyramine (with Sugar) [Cholestyramine Packet] 4 gm PO DAILY 12/13/20 [History] Pregabalin [Lyrica] 200 mg PO TID 12/13/20 [History] Furosemide [Lasix] 40 mg PO DAILY #30 tab 01/25/21 [Rx] Levofloxacin [Levaquin] 750 mg PO DAILY #5 tab 01/25/21 [Rx] predniSONE [Deltasone] 40 mg PO DAILY #30 tab 01/25/21 [Rx] Follow up Appointment(s)/Referral(s): [facility] [NON-STAFF] - 1-2 Days Damir Teran MD [Primary Care Provider] - 1-2 days
== END 2021-01-25 11:27 | disposition home health service (06) | DRG 208 ==
LOC: EC 10:14 → 3SCARD 14:41 → 2SICU 21:14 → 6NMEDSUR 01-23 17:57
PROVIDERS: ADMIT Family Medicine; ATTEND Family Medicine
PROC: 5A1945Z Respiratory Ventilation, 24-96 Consecutive Hours (ICD-10-PCS; 2021-01-17)
PROC: 0BH17EZ Insertion of Endotracheal Airway into Trachea, Via Natural or Artificial Opening (ICD-10-PCS; 2021-01-17)
PROC: 02HV33Z Insertion of Infusion Device into Superior Vena Cava, Percutaneous Approach (ICD-10-PCS; principal; 2021-01-18 13:00)
PROC: 5A09457 Assistance with Respiratory Ventilation, 24-96 Consecutive Hours, Continuous Positive Airway Pressure (ICD-10-PCS; 2021-01-24)
DX: J69.0 Pneumonitis due to inhalation of food and vomit (principal); J96.21 Acute and chronic respiratory failure with hypoxia; K72.00 Acute and subacute hepatic failure without coma; G92 Toxic encephalopathy; J96.22 Acute and chronic respiratory failure with hypercapnia; I50.43 Acute on chronic combined systolic (congestive) and diastolic (congestive) heart failure; I13.0 Hypertensive heart and chronic kidney disease with heart failure and stage 1 through stage 4 chronic kidney disease, or unspecified chronic kidney disease; J44.1 Chronic obstructive pulmonary disease with (acute) exacerbation; J44.0 Chronic obstructive pulmonary disease with (acute) lower respiratory infection; F05 Delirium due to known physiological condition; N17.9 Acute kidney failure, unspecified; J98.11 Atelectasis; D63.8 Anemia in other chronic diseases classified elsewhere; E66.01 Morbid (severe) obesity due to excess calories; F17.200 Nicotine dependence, unspecified, uncomplicated; I25.10 Atherosclerotic heart disease of native coronary artery without angina pectoris; G47.33 Obstructive sleep apnea (adult) (pediatric); N18.1 Chronic kidney disease, stage 1; Z20.822 Contact with and (suspected) exposure to COVID-19; M32.9 Systemic lupus erythematosus, unspecified; K76.0 Fatty (change of) liver, not elsewhere classified; Z68.33 Body mass index [BMI] 33.0-33.9, adult; Z99.81 Dependence on supplemental oxygen; I49.3 Ventricular premature depolarization; I25.2 Old myocardial infarction; G40.409 Other generalized epilepsy and epileptic syndromes, not intractable, without status epilepticus; I69.334 Monoplegia of upper limb following cerebral infarction affecting left non-dominant side; R29.6 Repeated falls; Z79.82 Long term (current) use of aspirin; Z79.02 Long term (current) use of antithrombotics/antiplatelets; E78.5 Hyperlipidemia, unspecified; F32.9 Major depressive disorder, single episode, unspecified; F41.9 Anxiety disorder, unspecified; K59.00 Constipation, unspecified; K21.9 Gastro-esophageal reflux disease without esophagitis; Z79.51 Long term (current) use of inhaled steroids; Z82.5 Family history of asthma and other chronic lower respiratory diseases; Z82.49 Family history of ischemic heart disease and other diseases of the circulatory system; Z91.19 Patient's noncompliance with other medical treatment and regimen; Z95.5 Presence of coronary angioplasty implant and graft; J84.9 Interstitial pulmonary disease, unspecified; Z79.899 Other long term (current) drug therapy
CPT/HCPCS: 36415; 36573; 36600; 70450; 71045; 71275; 72125; 80048; 80053; 80185; 80202; 80306; 80320; 81001; 82140; 82330; 82550; 82803; 82805; 83036; 83605; 83690; 83735; 83880; 83930; 84100; 84478; 84484; 85025; 85379; 85610; 85730; 86140; 87040; 87070; 87205; 87502; 87635; 93005; 94002; 94003; 94640; 94660; 94760; 95819; 96361; 96374; 96375; 99291

== ENCOUNTER 2021-01-26 01:04 | Inpatient (IN) | payer OTHER ==
--- NOTE | 2021-01-26 01:41 | XR ---
EXAM: XR Chest, 1 View CLINICAL HISTORY: ITS.REASON XR Reason: dyspnea TECHNIQUE: Frontal view of the chest. COMPARISON: January 23, 2021 FINDINGS: Lungs: There are increased interstitial densities in the mid to lower lungs bilaterally with scattered bibasilar atelectasis versus infiltrates or edema, Little change since previous. Pulmonary vascularity is engorged. Pleural space: Unremarkable. No pneumothorax. Heart: The cardiac silhouette is moderately enlarged. Mediastinum: Unremarkable. Bones/joints: Unremarkable. IMPRESSION: There are increased interstitial densities in the mid to lower lungs bilaterally with scattered bibasilar atelectasis versus infiltrates or edema, Little change since previous.
[2021-01-26 01:51] LABS: ALT 41 U/L (4-49); AST 58 U/L (17-59); African American GFR (CKD) >90 (>60 ml/min/1.73 sqM); Albumin 3.9 g/dL (3.5-5.0); Alkaline Phosphatase 170 U/L (38-126); Anion Gap 6 mmol/L; Blood Urea Nitrogen 14 mg/dL (9-20); Calcium 8.7 mg/dL (8.4-10.2); Carbon Dioxide 34 mmol/L (22-30); Chloride 101 mmol/L (98-107); Glucose 182 mg/dL (74-99); Non-African American GFR(CKD) >90 (>60 ml/min/1.73 sqM); Sodium 141 mmol/L (137-145); Total Bilirubin 0.4 mg/dL (0.2-1.3); Total Protein 6.4 g/dL (6.3-8.2)
[2021-01-26 01:52] LABS: INR 0.9 (<1.2); Potassium 4.3 mmol/L (3.5-5.1); Prothrombin Time 9.8 sec (9.0-12.0)
[2021-01-26 01:55] LABS: Partial Thromboplastin Time 18.6 sec (22.0-30.0)
[2021-01-26 02:15] LABS: Basophils # (A) 0.1 k/uL (0-0.2); Basophils % (A) 0 %; Eosinophils # (A) 0.3 k/uL (0-0.7); Eosinophils % (A) 3 %; HCT 52.3 % (39.0-53.0); HGB 16.2 gm/dL (13.0-17.5); Hypochromasia Moderate; Lymphocytes # (A) 2.3 k/uL (1.0-4.8); Lymphocytes % (A) 19 %; MCH 32.4 pg (25.0-35.0); MCV 104.7 fL (80.0-100.0); Macrocytosis Moderate; Mean Platelet Volume 8.7; Monocytes # (A) 0.7 k/uL (0-1.0); Monocytes % (A) 6 %; Neutrophils # (A) 8.4 k/uL (1.3-7.7); Neutrophils % (A) 71 %; Platelet Count 174 k/uL (150-450); RBC 4.99 m/uL (4.30-5.90); WBC 11.9 k/uL (3.8-10.6)
--- NOTE | 2021-01-26 04:32 | ED ---
SOB HPI - General Chief Complaint: Shortness of Breath Stated Complaint: YOU Time Seen by Provider: 01/26/21 01:08 Source: EMS Mode of arrival: EMS Limitations: physical limitation (Significant dyspnea) - History of Present Illness Initial Comments: This patient is 60-year-old man brought by ambulance to be evaluate for respiratory distress. The patient's ability to give history somewhat limited as he is very dyspneic and also wearing CPAP mask. The patient had left the hospital yesterday after admission for pneumonia and COPD. The patient reporte dly started becoming more short of breath orthopnea. When EMS arrived, he was only able to get one word out, he kept repeating BIPAP. He was placed on CPAP mask, given nitroglycerin as his blood pressure was above 200. The patient also was diaphoretic and cyanotic, with an initial pulse oximetry in the 70s. On arrival here, the patient states that he is are starting to note improvement. Blood pressure has improved and O2 sats are into the 90s. Patient denies chest pain. Denies cough. No fevers. MD Complaint: shortness of breath -: hour(s) Severity scale (1-10): 0 Consistency: constant Improves With: nothing Worsens With: lying flat, exertion Known History Of: COPD Treatments Prior to Arrival: oxygen, NIPPV, nitroglycerin - Related Data Home Medications Medication Instructions Recorded Confirmed Loratadine [Claritin] 10 mg PO DAILY 05/21/16 01/26/21 PARoxetine [Paxil] 20 mg PO DAILY 05/21/16 01/26/21 Phenytoin Sodium Extended 200 mg PO BID 05/21/16 01/26/21 [Dilantin] Clopidogrel Bisulfate [Clopidogrel] 75 mg PO DAILY 05/22/16 01/26/21 rOPINIRole HCL [Requip] 1 mg PO BID 08/30/16 01/26/21 Mycophenolate Mofetil [Cellcept] 1,000 mg PO DAILY 10/03/17 01/26/21 Theophylline Anhydrous 400 mg PO DAILY 10/03/17 01/26/21 [Theophylline] Ergocalciferol (Vitamin D2) 50,000 unit PO Q14D 02/04/18 01/26/21 [Vitamin D2] Montelukast [Singulair] 10 mg PO DAILY@1500 02/04/18 01/26/21 Nitroglycerin Sl Tabs [Nitrostat] 0.4 mg SUBLINGUAL Q5M PRN 02/04/18 01/26/21 Potassium Chloride [Klor-Con 20] 20 meq PO Q48H 02/04/18 01/26/21 Potassium Chloride [Klor-Con 20] 40 meq PO Q48H 02/04/18 01/26/21 allopurinoL [Zyloprim] 100 mg PO DAILY 02/04/18 01/26/21 mycophenolate mofetiL [Cellcept] 500 mg PO HS 08/05/19 01/26/21 Aspirin 325 mg PO DAILY 05/12/20 01/26/21 Famotidine 20 mg PO DAILY 05/12/20 01/26/21 HYDROcodone/APAP 7.5-325MG [[place] 1 tab PO Q6H PRN 05/12/20 01/26/21 7.5-325] Multivitamins, Thera [Multivitamin 1 tab PO DAILY 05/12/20 01/26/21 (formulary)] modafiniL [Provigil] 200 mg PO DAILY 05/12/20 01/26/21 Albuterol Sulfate [Proair Hfa] 2 puff INHALATION RT-Q6H PRN 11/15/20 01/26/21 Atorvastatin [Lipitor] 20 mg PO DAILY 11/15/20 01/26/21 Fluticasone Propionate [Flovent 2 puff INHALATION RT-BID 11/15/20 01/26/21 Hfa 220 mcg] Tiotropium [place] [Spiriva] 1 cap INHALATION RT-DAILY 11/15/20 01/26/21 Cholestyramine (with Sugar) 4 gm PO DAILY 12/13/20 01/26/21 [Cholestyramine Packet] Previous Rx's Medication Instructions Recorded Metoprolol Tartrate [Lopressor] 25 mg PO BID #60 tab 09/18/15 Magnesium Oxide [Mag-Ox] 400 mg PO DAILY #30 tablet 07/11/16 Isosorbide Mononitrate ER [Imdur] 30 mg PO DAILY #30 tab 02/05/18 predniSONE [Deltasone] 40 mg PO DAILY #30 tab 01/25/21 Furosemide [Lasix] 80 mg PO BID #1 tab 01/30/21 Nicotine 14Mg/24Hr Patch [Habitrol] 1 patch TRANSDERM DAILY patch 01/30/21 metFORMIN HCL [metFORMIN HCL ER] 750 mg PO BID #0 01/30/21 predniSONE 10 mg PO DIRECTED 16 Days #40 01/30/21 tab Allergies Allergy/AdvReac Type Severity Reaction Status Date / Time Penicillins Allergy Severe Swelling Verified 01/26/21 06:44 Iodinated Contrast Media Allergy Swelling Verified 01/26/21 06:44 [Iodinated Contrast- Oral and IV Dye] iodine Allergy Itching, Verified 01/26/21 06:44 Hives phenobarbital AdvReac Drowsiness Verified 01/26/21 06:44 Review of Systems ROS Statement: Those systems with pertinent positive or pertinent negative responses have been documented in the HPI. ROS Other: All systems not noted in ROS Statement are negative. Constitutional: Denies: fever, chills Respiratory: Reports: dyspnea. Denies: cough, hemoptysis Cardiovascular: Reports: orthopnea, edema. Denies: chest pain, palpitations, syncope Gastrointestinal: Denies: abdominal pain, nausea, vomiting Genitourinary: Denies: dysuria, hematuria Musculoskeletal: Denies: back pain Skin: Denies: rash Neurological: Denies: headache, weakness 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, lupus, continuous oxygen use at 3L, no cpap used, kidney failure with hemodilaysis in the past, 3 [place]'s, hypoglycemia Last Myocardial Infarction Date:: 2016 History of Any Multi-Drug Resistant Organisms: None Reported Past Surgical History: Cholecystectomy, Heart Catheterization, Heart Catheterization With Stent, Tonsillectomy Additional Past Surgical History / Comment(s): STATES 3 cardiac stents, Past Anesthesia/Blood Transfusion Reactions: No Reported Reaction Additional Past Anesthesia/Blood Transfusion Reaction / Comment(s): blood transfusion-no reaction, unknown family hx per spouse Date of Last Stent Placement:: 2015 Past Psychological History: Anxiety, Depression Smoking Status: Current some day smoker Past Alcohol Use History: None Reported Past Drug Use History: None Reported - Past Family History Father Family Medical History: Myocardial Infarction ([place]) Mother Family Medical History: Asthma, Cancer, COPD General Exam Limitations: no limitations General appearance: alert, in distress Head exam: Present: atraumatic, normocephalic Eye exam: Present: normal appearance. Absent: scleral icterus, conjunctival injection Neck exam: Present: normal inspection Respiratory exam: Present: respiratory distress, wheezes, accessory muscle use, decreased breath sounds. Absent: rales, rhonchi, stridor, chest wall tenderness, prolonged expiratory Cardiovascular Exam: Present: normal rhythm, tachycardia, normal heart sounds. Absent: systolic murmur, diastolic murmur, rubs, gallop GI/Abdominal exam: Present: soft. Absent: distended, tenderness, guarding, rebound, rigid, mass Extremities exam: Present: normal inspection, normal capillary refill. Absent: pedal edema, calf tenderness Back exam: Present: normal inspection. Absent: CVA tenderness (R), CVA tenderness (L) Neurological exam: Present: alert Skin exam: Present: warm, dry, intact, normal color. Absent: rash Course Vital Signs 01/26/21 01/26/21 01/26/21 01:04 01:30 01:40 Pulse Rate 95 88 86 Respiratory 24 16 16 Rate Blood Pressure 129/91 111/64 99/62 O2 Sat by Pulse 90 L 96 Oximetry 01/26/21 01/26/21 01/26/21 02:02 02:07 03:02 Pulse Rate 78 100 Respiratory 19 18 17 Rate Blood Pressure 174/88 99/67 O2 Sat by Pulse 98 97 Oximetry 01/26/21 01/26/21 01/26/21 03:56 04:10 04:48 Pulse Rate 102 H 99 101 H Respiratory 16 17 16 Rate Blood Pressure 99/71 98/62 92/65 O2 Sat by Pulse 98 97 97 Oximetry 01/26/21 01/26/21 01/26/21 05:31 05:47 06:00 Pulse Rate 108 H 109 H 104 H Respiratory 16 16 19 Rate Blood Pressure 100/66 116/77 98/56 O2 Sat by Pulse 98 98 98 Oximetry Medical Decision Making - Lab Data Result diagrams: 01/30/21 06:59 01/30/21 06:59 Lab Results 01/26/21 01/26/21 01/26/21 Range/Units 01:15 01:15 01:15 WBC 11.9 H (3.8-10.6) k/uL RBC 4.99 (4.30-5.90) m/uL Hgb 16.2 (13.0-17.5) gm/dL Hct 52.3 (39.0-53.0) % MCV 104.7 H (80.0-100.0) fL MCH 32.4 (25.0-35.0) pg MCHC 31.0 (31.0-37.0) g/dL RDW 15.0 (11.5-15.5) % Plt Count 174 (150-450) k/uL MPV 8.7 Neutrophils % 71 % Lymphocytes % 19 % Monocytes % 6 % Eosinophils % 3 % Basophils % 0 % Neutrophils # 8.4 H (1.3-7.7) k/uL Lymphocytes # 2.3 (1.0-4.8) k/uL Monocytes # 0.7 (0-1.0) k/uL Eosinophils # 0.3 (0-0.7) k/uL Basophils # 0.1 (0-0.2) k/uL Hypochromasia Moderate Macrocytosis Moderate PT 9.8 (9.0-12.0) sec INR 0.9 (<1.2) APTT 18.6 L (22.0-30.0) sec Sodium 141 (137-145) mmol/L Potassium 4.3 (3.5-5.1) mmol/L Chloride 101 (98-107) mmol/L Carbon Dioxide 34 H (22-30) mmol/L Anion Gap 6 mmol/L BUN 14 (9-20) mg/dL Creatinine 0.49 L (0.66-1.25) mg/dL Est GFR (CKD-EPI)AfAm >90 (>60 ml/min/1.73 sqM) Est GFR (CKD-EPI)NonAf >90 (>60 ml/min/1.73 sqM) Glucose 182 H (74-99) mg/dL Plasma Lactic Acid Otto (0.7-2.0) mmol/L Calcium 8.7 (8.4-10.2) mg/dL Magnesium 2.0 (1.6-2.3) mg/dL Total Bilirubin 0.4 (0.2-1.3) mg/dL AST 58 (17-59) U/L ALT 41 (4-49) U/L Alkaline Phosphatase 170 H (38-126) U/L Troponin I (0.000-0.034) ng/mL NT-Pro-B Natriuret Pep pg/mL Total Protein 6.4 (6.3-8.2) g/dL Albumin 3.9 (3.5-5.0) g/dL 01/26/21 01/26/21 01/26/21 Range/Units 01:15 01:15 01:15 WBC (3.8-10.6) k/uL RBC (4.30-5.90) m/uL Hgb (13.0-17.5) gm/dL Hct (39.0-53.0) % MCV (80.0-100.0) fL MCH (25.0-35.0) pg MCHC (31.0-37.0) g/dL RDW (11.5-15.5) % Plt Count (150-450) k/uL MPV Neutrophils % % Lymphocytes % % Monocytes % % Eosinophils % % Basophils % % Neutrophils # (1.3-7.7) k/uL Lymphocytes # (1.0-4.8) k/uL Monocytes # (0-1.0) k/uL Eosinophils # (0-0.7) k/uL Basophils # (0-0.2) k/uL Hypochromasia Macrocytosis PT (9.0-12.0) sec INR (<1.2) APTT (22.0-30.0) sec Sodium (137-145) mmol/L Potassium (3.5-5.1) mmol/L Chloride (98-107) mmol/L Carbon Dioxide (22-30) mmol/L Anion Gap mmol/L BUN (9-20) mg/dL Creatinine (0.66-1.25) mg/dL Est GFR (CKD-EPI)AfAm (>60 ml/min/1.73 sqM) Est GFR (CKD-EPI)NonAf (>60 ml/min/1.73 sqM) Glucose (74-99) mg/dL Plasma Lactic Acid Otto 1.0 (0.7-2.0) mmol/L Calcium (8.4-10.2) mg/dL Magnesium (1.6-2.3) mg/dL Total Bilirubin (0.2-1.3) mg/dL AST (17-59) U/L ALT (4-49) U/L Alkaline Phosphatase (38-126) U/L Troponin I 0.022 (0.000-0.034) ng/mL NT-Pro-B Natriuret Pep 2320 pg/mL Total Protein (6.3-8.2) g/dL Albumin (3.5-5.0) g/dL - EKG Data -: EKG Interpreted by Me EKG shows normal: sinus rhythm (With PVCs), axis (Normal), intervals (Normal), QRS complexes (Possible old anterior infarct), ST-T waves (Normal) Rate: normal (Rate 97 bpm) Critical Care Time Critical Care Time: Yes (30 minutes) Disposition Clinical Impression: Dyspnea, COPD exacerbation Disposition: ADMITTED IP TO THIS HOSP Condition: Stable Is patient prescribed a controlled substance at d/c from ED?: No
[2021-01-26] MEDS ORDERED: FUROSEMIDE 10 MG/ML 4 ML VIAL IV STA (04:34)
[2021-01-26] MEDS ORDERED: ALBUTEROL NEBULIZED 2.5 MG/3 ML INHALATION PRN (04:44)
[2021-01-26] MEDS ORDERED: NITROGLYCERIN SL TABS 0.4 MG TAB SUBLINGUAL PRN (04:47)
[2021-01-26] MEDS: IPRATROPIUM-ALBUTEROL 3 ML NEB INHALATION SCH ×4 (07:12→19:52)
[2021-01-26] MEDS ORDERED: FLUTICASONE 220 MCG INHALER INHALATION SCH (08:00)
[2021-01-26] MEDS ORDERED: predniSONE 20 MG TAB PO SCH (09:00)
[2021-01-26] MEDS: FAMOTIDINE 20 MG TAB PO SCH (09:06)
[2021-01-26] MEDS: ATORVASTATIN 20 MG TAB PO SCH (09:06)
[2021-01-26] MEDS: METOPROLOL TARTRATE 25 MG TAB PO SCH ×2 (09:06→20:10)
[2021-01-26] MEDS: ISOSORBIDE MONONITRATE ER 30 MG TAB.ER.24H PO SCH (09:06)
[2021-01-26] MEDS: MAGNESIUM OXIDE 400 MG TAB PO SCH (09:06)
[2021-01-26] MEDS: HEPARIN SODIUM,PORCINE/PF 5,000 UNIT/0.5 ML SYRINGE SQ SCH ×2 (09:06→20:15)
[2021-01-26] MEDS: PHENYTOIN SODIUM EXTENDED 100 MG CAP PO SCH ×2 (09:06→20:10)
[2021-01-26] MEDS: CLOPIDOGREL 75 MG TAB PO SCH (09:06)
[2021-01-26] MEDS: PARoxetine 20 MG TAB PO SCH (09:06)
[2021-01-26] MEDS: ASPIRIN 325 MG TAB PO SCH (09:06)
[2021-01-26] MEDS: FUROSEMIDE 40 MG TAB PO SCH ×2 (09:06→16:01)
[2021-01-26] MEDS ORDERED: ERGOCALCIFEROL 1,250 MCG (50,000 IU) CAPSULE PO SCH (11:00)
[2021-01-26 12:16] LABS: Glucose,Whole Blood 133 mg/dL (75-99)
[2021-01-26] MEDS: LORATADINE 10 MG TAB PO SCH (12:20)
[2021-01-26] MEDS: LEVOFLOXACIN 750 MG TAB PO SCH (12:21)
[2021-01-26] MEDS: PANTOPRAZOLE 40 MG/10 ML VIAL IVP SCH (12:21)
[2021-01-26] MEDS: CHOLESTYRAMINE (WITH SUGAR) 4 GM PACKET PO SCH (12:21)
--- NOTE | 2021-01-26 12:45 | ECHOF ---
Referral Reason:edema, SOB MEASUREMENTS -------- HEIGHT: 175.3 cm WEIGHT: 111.1 kg BP: RVIDd: 4.3 cm (< 3.3) IVSd: 1.3 cm (0.6 - 1.1) LVIDd: 5.0 cm (3.9 - 5.3) LVPWd: 1.6 cm (0.6 - 1.1) IVSs: 1.7 cm LVIDs: 3.4 cm LVPWs: 1.7 cm Ao Diam: 3.3 cm (2.0 - 3.7) MV EXCURSION: 14.924 mm (> 18.000) MV EF SLOPE: 49 mm/s (70 - 150) EPSS: 1.1 cm MV E Tony: 0.38 m/s MV DecT: 256 ms MV A Tony: 0.44 m/s MV E/A Ratio: 0.86 AV maxP.53 mmHg AV meanP.18 mmHg FINDINGS -------- Sinus rhythm. This was a technically difficult study with suboptimal views. This was a techncally difficult study with suboptimal views, , Lumason utilized for enhancement of images. The left ventricular size is normal. There is mild concentric left ventricular hypertrophy. Overa ll left ventricular systolic function is normal with, an EF between 55 - 60 %. The right ventricle is moderately enlarged. The left atrial size is normal. The right atrial size is normal. 5.0mg OF Lumason UTLIZED: 2 OR MORE WALL SEGMENTS NOT VISUALIZED. The aortic valve was not well visualized. The mitral valve is normal. Mild mitral regurgitation is present. No regurgitation noted Unable to estimate RVSP due to inadequate TR jet spectral doppler profile. The pulmonic valve was not well visualized. The aortic root size is normal. There is no pericardial effusion. CONCLUSIONS -------- 1. This was a technically difficult study with suboptimal views. 2. This was a techncally difficult study with suboptimal views, , Lumason utilized for enhancement of images. 3. There is mild concentric left ventricular hypertrophy. 4. Overall left ventricular systolic function is normal with, an EF between 55 - 60 %. 5. The right ventricle is moderately enlarged. 6. The left atrial size is normal. 7. 5.0mg OF [place] UTLIZED: 2 OR MORE WALL SEGMENTS NOT VISUALIZED. 8. The aortic valve was not well visualized. 9. Mild mitral regurgitation is present. 10. No regurgitation noted 11. There is no pericardial effusion. DIRECTOR TELECOMMUNICATIONS: Deepthi Mejia RDCS
--- NOTE | 2021-01-26 12:49 | P.CNPUL ---
History of Present Illness Consult date: 01/26/21 Requesting physician: Damir Teran Reason for consult: dyspnea, COPD, hypoxemia, abnormal CXR/CT Chief complaint: Shortness of breath, COPD exacerbation. History of present illness: Pulmonary consult dated 01/26/2021. 60-year-old male, brought in by EMS, for shortness of breath and respiratory distress. The patient apparently was wearing a CPAP mask when he came in. The patient was recently in the hospital, having been admitted on January 17, and discharged on January 25. He was COVID negative. Currently, the patient's on BiPAP at 14/6, with an FiO2 of 60%. The patient is not receiving any IV fluids. Apparently when he came in, his blood pressure was quite high, and he was given some nitroglycerin. Currently, he is on BiPAP. The patient has quite severe COPD. In addition, the patient has a history of CAD, angina, heart failure, stroke, GERD, hyperlipidemia, hypertension, myocardial infarction, DJD, pneumonia, seizure disorder, and sleep apnea syndrome. Admission labs included a white count 11.9, heme him 16.2, hematocrit 52.3, and platelet count 174,000. PT/INR and PTT are all within normal range. Sodium 143, potassium 4.3, chlorides 101, CO2 34, anion gap 6, BUN 14, creatinine 0.49. N-terminal proBNP 2320. Based on the carbon dioxide concentration on the electrolyte profile, the patient's baseline PaCO2 should be right around 60 mmHg. This is based on the Iverson formula. Chest x-ray shows some bibasilar atelectasis. Review of Systems REVIEW OF SYSTEMS: CONSTITUTIONAL: [Negative.] NEUROLOGIC: [ Negative.] HEENT: [ Negative.] CARDIAC: [Negative.] PULMONARY: Shortness of breath. GI: [Negative.] : [Negative.] RHEUMATOLOGIC: [ Negative.] IMMUNOLOGIC: [ Negative.] ENDOCRINE: [Negative. ] DERMATOLOGIC: [Negative.] Past Medical History Past Medical History: Asthma, Coronary Artery Disease (CAD), Chest Pain / Angina, Heart Failure, COPD, CVA/TIA, GERD/Reflux, Hyperlipidemia, Hypertension, Myocardial Infarction ([place]), Osteoarthritis (OA), Pneumonia, Renal Disease, Respiratory Disorder, Seizure Disorder, Sleep Apnea/CPAP/BIPAP, Syncope Additional Past Medical History / Comment(s): Pt recently admitted to [facility] on 01/17/21 with acute on chronic hypoxic hypercapnic respiratory failure 2ndary to bilateral pneumonia/acute on chronic CHF/intubated/ acute metabolic and toxic encephalopathy, new prominent bilateral hilar lymphnodes. Other hx: Bronchial asthma, interstitial lung disease, home oxygen at 3L/NC ATC mostly, [place] without device, CVA with L arm weakness, NIDDM type II, hypoglycemia, numbness/tingling bilateral hands/feet, CKD stage 1 and had past hemodialysis, SLE, gastric ulcer, arthritis in multiple joints, chronic pain, chronic back pain, migraines, bilateral carpal tunnel syndrome, last seizure 2014, abdominal hernia, sinus pr oblems, gout, RLS, FALLS, sinus problems. Last Myocardial Infarction Date:: 2015 History of Any Multi-Drug Resistant Organisms: None Reported Past Surgical History: Cholecystectomy, Heart Catheterization, Heart Catheterization With Stent, Orthopedic Surgery, Tonsillectomy Additional Past Surgical History / Comment(s): PCI with stents, pain clinic procedures, colonoscopy/benign polypectomy, hemorrhoidectomy, cervical cergery Past Anesthesia/Blood Transfusion Reactions: No Reported Reaction Additional Past Anesthesia/Blood Transfusion Reaction / Comment(s): blood transfusion-no reaction, unknown family hx per spouse Date of Last Stent Placement:: 2015 Smoking Status: Current every day smoker - Past Family History Father Family Medical History: Myocardial Infarction ([place]) Additional Family Medical History / Comment(s): Father had a PA at the age of 56yrs. Mother Family Medical History: Asthma, Cancer, COPD Additional Family Medical History / Comment(s): Mother had lung cancer. Medications and Allergies Home Medications Medication Instructions Recorded Confirmed Type Metoprolol Tartrate [Lopressor] 25 mg PO BID #60 tab 09/18/15 01/26/21 Rx Loratadine [Claritin] 10 mg PO DAILY 05/21/16 01/26/21 History PARoxetine [Paxil] 20 mg PO DAILY 05/21/16 01/26/21 History Phenytoin Sodium Extended 200 mg PO BID 05/21/16 01/26/21 History [Dilantin] Clopidogrel Bisulfate [Clopidogrel] 75 mg PO DAILY 05/22/16 01/26/21 History Magnesium Oxide [Mag-Ox] 400 mg PO DAILY #30 tablet 07/11/16 01/26/21 Rx rOPINIRole HCL [Requip] 1 mg PO BID 08/30/16 01/26/21 History Mycophenolate Mofetil [Cellcept] 1,000 mg PO DAILY 10/03/17 01/26/21 History Theophylline Anhydrous 400 mg PO DAILY 10/03/17 01/26/21 History [Theophylline] Ergocalciferol (Vitamin D2) 50,000 unit PO Q14D 02/04/18 01/26/21 History [Vitamin D2] Montelukast [Singulair] 10 mg PO DAILY@1500 02/04/18 01/26/21 History Nitroglycerin Sl Tabs [Nitrostat] 0.4 mg SUBLINGUAL Q5M PRN 02/04/18 01/26/21 History Potassium Chloride [Klor-Con 20] 20 meq PO Q48H 02/04/18 01/26/21 History Potassium Chloride [Klor-Con 20] 40 meq PO Q48H 02/04/18 01/26/21 History allopurinoL [Zyloprim] 100 mg PO DAILY 02/04/18 01/26/21 History Isosorbide Mononitrate ER [Imdur] 30 mg PO DAILY #30 tab 02/05/18 01/26/21 Rx hydrOXYzine HCL [Atarax] 25 mg PO Q8H PRN 08/05/19 01/26/21 History mycophenolate mofetiL [Cellcept] 500 mg PO HS 08/05/19 01/26/21 History Aspirin 325 mg PO DAILY 05/12/20 01/26/21 History Famotidine 20 mg PO DAILY 05/12/20 01/26/21 History HYDROcodone/APAP 7.5-325MG [[place] 1 tab PO Q6H PRN 05/12/20 01/26/21 History 7.5-325] Multivitamins, Thera [Multivitamin 1 tab PO DAILY 05/12/20 01/26/21 History (formulary)] modafiniL [Provigil] 200 mg PO DAILY 05/12/20 01/26/21 History Albuterol Sulfate [Proair Hfa] 2 puff INHALATION RT-Q6H PRN 11/15/20 01/26/21 History Atorvastatin [Lipitor] 20 mg PO DAILY 11/15/20 01/26/21 History Fluticasone Propionate [Flovent 2 puff INHALATION RT-BID 11/15/20 01/26/21 History Hfa 220 mcg] Tiotropium [place] [Spiriva] 1 cap INHALATION RT-DAILY 11/15/20 01/26/21 History metFORMIN HCL [metFORMIN HCL ER] 1,500 mg PO W/SUPPER 11/15/20 01/26/21 History Cholestyramine (with Sugar) 4 gm PO DAILY 12/13/20 01/26/21 History [Cholestyramine Packet] Pregabalin [Lyrica] 200 mg PO TID 12/13/20 01/26/21 History Furosemide [Lasix] 40 mg PO DAILY #30 tab 01/25/21 01/26/21 Rx Levofloxacin [Levaquin] 750 mg PO DAILY #5 tab 01/25/21 01/26/21 Rx predniSONE [Deltasone] 40 mg PO DAILY #30 tab 01/25/21 01/26/21 Rx Allergies Allergy/AdvReac Type Severity Reaction Status Date / Time Penicillins Allergy Severe Swelling Verified 01/26/21 06:44 Iodinated Contrast Media Allergy Swelling Verified 01/26/21 06:44 [Iodinated Contrast- Oral and IV Dye] iodine Allergy Itching, Verified 01/26/21 06:44 Hives phenobarbital AdvReac Drowsiness Verified 01/26/21 06:44 Physical Exam Osteopathic Statement: *. No significant issues noted on an osteopathic structural exam other than those noted in the History and Physical/Consult. Vitals: Vital Signs Temp Pulse Pulse Resp BP BP Pulse Ox 01/26/21 11:03 98 01/26/21 09:00 97.5 F L 63 23 97/60 94 L 01/26/21 07:24 108 H 01/26/21 07:14 104 H 01/26/21 06:00 104 H 19 98/56 98 01/26/21 05:47 109 H 16 116/77 98 01/26/21 05:31 108 H 16 100/66 98 01/26/21 04:48 101 H 16 92/65 97 01/26/21 04:10 99 17 98/62 97 01/26/21 03:56 102 H 16 99/71 98 01/26/21 03:02 100 17 99/67 97 01/26/21 02:07 78 18 174/88 98 01/26/21 02:02 19 01/26/21 01:40 86 16 99/62 96 01/26/21 01:30 88 16 111/64 01/26/21 01:04 95 24 129/91 90 L Intake and Output 01/25/21 01/26/21 01/26/21 22:59 06:59 14:59 Other: Weight 111.13 kg 111.13 kg Lethargic, does arouse, BiPAP mask in place. Saturations are 94%. HEENT examination is grossly unremarkable. Neck supple. Full range of motion. No adenopathy thyromegaly or neck vein distention. Cardiovascular examination reveals regular rhythm rate. S1-S2 normal. No S3 or S4. No discernible murmur noted. Heart sounds are distant. Heart rate 98 bpm. Lungs reveal diffuse and bilateral scattered rhonchi. Fine wheezes are noted. No crackles. Breath sounds equal bilaterally but diminished throughout. Abdomen soft bowel sounds are heard. No masses or tenderness. Extremities are intact. Trace edema. No cyanosis or clubbing.. Skin is without rash or lesion. Neurologic examination is brief but nonfocal. Results - Laboratory Findings CBC and BMP: 01/26/21 01:15 01/26/21 01:15 PT/INR, D-dimer PT 9.8 sec (9.0-12.0) 01/26/21 01:15 INR 0.9 (<1.2) 01/26/21 01:15 Abnormal lab findings: Abnormal Labs 01/26/21 01/26/21 01/26/21 01:15 01:15 01:15 WBC 11.9 H MCV 104.7 H Neutrophils # 8.4 H APTT 18.6 L Carbon Dioxide 34 H Creatinine 0.49 L Glucose 182 H POC Glucose (mg/dL) Alkaline Phosphatase 170 H 01/26/21 12:14 WBC MCV Neutrophils # APTT Carbon Dioxide Creatinine Glucose POC Glucose (mg/dL) 133 H Alkaline Phosphatase - Diagnostic Findings Chest x-ray: image reviewed Assessment and Plan Assessment: Acute hypoxemic and hypercapnic respiratory failure secondary to COPD exacerbation. Current ongoing tobacco use with nicotine addiction. History of CAD. History of CHF. History of CVA/TIA. History of gastroesophageal reflux disease. History of hyperlipidemia. History of hypertension. Prior history of myocardial infarction. History of osteoarthritis. History of seizure disorder. History of sleep apnea syndrome, maintained on CPAP. CAD, previous stent placement. Multiple other medical problems and comorbidities. Plan: Plan dated 01/26/2021. The patient should be maintained on albuterol sulfate, and ipratropium bromide, 4 times a day and when necessary. In addition, the patient should stay on the BiPAP for now. The patient should also receive systemic corticosteroids, convalescent to Solu-Medrol, 60 mg every 6 hours, as well as Pulmicort, 1 mg twice a day mixed with formoterol, 20 g. Recommendations suggestions are f orthcoming. Prognosis is guarded. We'll continue to follow. Time with Patient: Greater than 30
[2021-01-26] MEDS: HYDROcodone/APAP 7.5-325MG 1 EACH TAB PO PRN (14:46)
--- NOTE | 2021-01-26 14:51 | P.HPIM ---
History of Present Illness H&P Date: 01/26/21 This is 60-year-old gentleman follows with Dr. Teran in the office with past medical history of CAD-myocardial infarction, cardiac stents, seizure disorder, CVA with residual left arm weakness SLE, COPD on 3 L home O2, nicotine dependence-2 packs per day, discharged yesterday with diagnosis of acute on chronic hypoxic hypercapnic respiratory failure secondary to bilateral pneumonia, acute CHF exacerbation and multiple other medical issues brought to the ER via EMS with complaints of increased shortness of breath, hypertensive. Patient reports he smoked 3 cigarettes once he arrived home. Reports near syncope while sitting on the toilet attempting to have a, BM. EMS reports patient requesting BiPAP, hypertensive with systolic blood pressure greater than 200, diaphoretic, cyanotic with a pulse ox in the 70s. He received nitroglycerin. On arrival O2 sats in the 90s, on CPAP,90L with blood pressure 129/91. Deny chest pain, palpitations. Currently 94% on 60% FiO2 BiPAP, mild tachycardia, borderline hypotension, systolic blood pressure high 90s. Afebrile, and ABC 11.9, hemoglobin 16.2, platelets 174, sodium 141, potassium 4.3, CO2 34, BUN 14, creatinine 0.49, glucose 182, magnesium 2, alk phos 170, troponin 0.0-2, BNP 2320. Influenza A/B,Coronavirus not detected. Chest x-ray reported little change since previous with increased interstitial densities in the mid to lower lungs bilaterally with scattered bibasilar atelectasis versus infiltrates or edema. EKG reported sinus rhythm with frequent PVCs, anterior infarct, age undetermined. Review of Systems ROS Statement: Those systems with pertinent positive or pertinent negative responses have been documented in the HPI. ROS Other: All systems not noted in ROS Statement are negative. Past Medical History Past Medical History: Asthma, Coronary Artery Disease (CAD), Chest Pain / Angina, Heart Failure, COPD, CVA/TIA, GERD/Reflux, Hyperlipidemia, Hypertension, Myocardial Infarction ([place]), Osteoarthritis (OA), Pneumonia, Renal Disease, Respiratory Disorder, Seizure Disorder, Sleep Apnea/CPAP/BIPAP, Syncope Additional Past Medical History / Comment(s): Pt recently admitted to [facility] on with acute on chronic hypoxic hypercapnic respiratory failure 2ndary to bilateral pneumonia/acute on chronic CHF/intubated/ acute metabolic and toxic encephalopathy, new prominent bilateral hilar lymphnodes. Other hx: Bronchial asthma, interstitial lung disease, home oxygen at 3L/[place] ATC mostly, [place] without device, CVA with L arm weakness, NIDDM type II, hypoglycemia, numbness/tingling bilateral hands/feet, CKD stage 1 and had past hemodialysis, SLE, gastric ulcer, arthritis in multiple joints, chronic pain, chronic back pain, migraines, bilateral carpal tunnel syndrome, last seizure 2014, abdominal hernia, sinus problems, gout, RLS, FALLS, sinus problems. Last Myocardial Infarction Date:: 2015 History of Any Multi-Drug Resistant Organisms: None Reported Past Surgical History: Cholecystectomy, Heart Catheterization, Heart Catheterization With Stent, Orthopedic Surgery, Tonsillectomy Additional Past Surgical History / Comment(s): PCI with stents, pain clinic procedures, colonoscopy/benign polypectomy, hemorrhoidectomy, cervical cergery Past Anesthesia/Blood Transfusion Reactions: No Reported Reaction Additional Past Anesthesia/Blood Transfusion Reaction / Comment(s): blood transfusion-no reaction, unknown family hx per spouse Date of Last Stent Placement:: 2015 Smoking Status: Current every day smoker - Past Family History Father Family Medical History: Myocardial Infarction ([place]) Additional Family Medical History / Comment(s): Father had a [place] at the age of 56yrs. Mother Family Medical History: Asthma, Cancer, COPD Additional Family Medical History / Comment(s): Mother had lung cancer. Medications and Allergies Home Medications Medication Instructions Recorded Confirmed Type Metoprolol Tartrate [Lopressor] 25 mg PO BID #60 tab 09/18/15 01/26/21 Rx Loratadine [Claritin] 10 mg PO DAILY 05/21/16 01/26/21 History PARoxetine [Paxil] 20 mg PO DAILY 05/21/16 01/26/21 History Phenytoin Sodium Extended 200 mg PO BID 05/21/16 01/26/21 History [Dilantin] Clopidogrel Bisulfate [Clopidogrel] 75 mg PO DAILY 05/22/16 01/26/21 History Magnesium Oxide [Mag-Ox] 400 mg PO DAILY #30 tablet 07/11/16 01/26/21 Rx rOPINIRole HCL [Requip] 1 mg PO BID 08/30/16 01/26/21 History Mycophenolate Mofetil [Cellcept] 1,000 mg PO DAILY 10/03/17 01/26/21 History Theophylline Anhydrous 400 mg PO DAILY 10/03/17 01/26/21 History [Theophylline] Ergocalciferol (Vitamin D2) 50,000 unit PO Q14D 02/04/18 01/26/21 History [Vitamin D2] Montelukast [Singulair] 10 mg PO DAILY@1500 02/04/18 01/26/21 History Nitroglycerin Sl Tabs [Nitrostat] 0.4 mg SUBLINGUAL Q5M PRN 02/04/18 01/26/21 History Potassium Chloride [Klor-Con 20] 20 meq PO Q48H 02/04/18 01/26/21 History Potassium Chloride [Klor-Con 20] 40 meq PO Q48H 02/04/18 01/26/21 History allopurinoL [Zyloprim] 100 mg PO DAILY 02/04/18 01/26/21 History Isosorbide Mononitrate ER [Imdur] 30 mg PO DAILY #30 tab 02/05/18 01/26/21 Rx hydrOXYzine HCL [Atarax] 25 mg PO Q8H PRN 08/05/19 01/26/21 History mycophenolate mofetiL [Cellcept] 500 mg PO HS 08/05/19 01/26/21 History Aspirin 325 mg PO DAILY 05/12/20 01/26/21 History Famotidine 20 mg PO DAILY 05/12/20 01/26/21 History HYDROcodone/APAP 7.5-325MG [[place] 1 tab PO Q6H PRN 05/12/20 01/26/21 History 7.5-325] Multivitamins, Thera [Multivitamin 1 tab PO DAILY 05/12/20 01/26/21 History (formulary)] modafiniL [Provigil] 200 mg PO DAILY 05/12/20 01/26/21 History Albuterol Sulfate [Proair Hfa] 2 puff INHALATION RT-Q6H PRN 11/15/20 01/26/21 History Atorvastatin [Lipitor] 20 mg PO DAILY 11/15/20 01/26/21 History Fluticasone Propionate [Flovent 2 puff INHALATION RT-BID 11/15/20 01/26/21 History Hfa 220 mcg] Tiotropium [place] [Spiriva] 1 cap INHALATION RT-DAILY 11/15/20 01/26/21 History metFORMIN HCL [metFORMIN HCL ER] 1,500 mg PO W/SUPPER 11/15/20 01/26/21 History Cholestyramine (with Sugar) 4 gm PO DAILY 12/13/20 01/26/21 History [Cholestyramine Packet] Pregabalin [Lyrica] 200 mg PO TID 12/13/20 01/26/21 History Furosemide [Lasix] 40 mg PO DAILY #30 tab 01/25/21 01/26/21 Rx Levofloxacin [Levaquin] 750 mg PO DAILY #5 tab 01/25/21 01/26/21 Rx predniSONE [Deltasone] 40 mg PO DAILY #30 tab 01/25/21 01/26/21 Rx Allergies Allergy/AdvReac Type Severity Reaction Status Date / Time Penicillins Allergy Severe Swelling Verified 01/26/21 06:44 Iodinated Contrast Media Allergy Swelling Verified 01/26/21 06:44 [Iodinated Contrast- Oral and IV Dye] iodine Allergy Itching, Verified 01/26/21 06:44 Hives phenobarbital AdvReac Drowsiness Verified 01/26/21 06:44 Physical Exam Vitals: Vital Signs Temp Pulse Pulse Resp BP BP Pulse Ox 01/26/21 09:00 97.5 F L 63 23 97/60 94 L 01/26/21 07:24 108 H 01/26/21 07:14 104 H 01/26/21 06:00 104 H 19 98/56 98 01/26/21 05:47 109 H 16 116/77 98 01/26/21 05:31 108 H 16 100/66 98 01/26/21 04:48 101 H 16 92/65 97 01/26/21 04:10 99 17 98/62 97 01/26/21 03:56 102 H 16 99/71 98 01/26/21 03:02 100 17 99/67 97 01/26/21 02:07 78 18 174/88 98 01/26/21 02:02 19 01/26/21 01:40 86 16 99/62 96 01/26/21 01:30 88 16 111/64 01/26/21 01:04 95 24 129/91 90 L Intake and Output 01/25/21 01/26/21 01/26/21 22:59 06:59 14:59 Other: Weight 111.13 kg 111.13 kg General: Obese, alert and oriented times 2, sitting up at side of bed, respiratory effort increased, wearing BiPAP HEENT: [PERRL. EOMI. No pharyngeal erythema or exudate. Neck: [Supple, unable to assess JVD, short neck Cardiac: [Heart regular in rate and rhythm. No S3. No S4. No clicks, rubs. No murmur.] Lungs: Minimal air exchange, bilateral bases diminished.scattered rhonchi ,Fine expiratory wheezing Abdomen: [Soft , distended, nontender ,No mass. No organomegaly. Bowel sounds presnt. Extremities: [Trace edema no cyanosis no claudication normal pulses] Skin: [Warm and dry, No rash.] Neurologic: [No lateralizing deficits. CN II - XII grossly intact; chronic residual left arm weakness.] Results CBC & Chem 7: 01/26/21 01:15 01/26/21 01:15 Labs: Abnormal Lab Results - Last 24 Hours (Table) 01/26/21 01/26/21 01/26/21 Range/Units 01:15 01:15 01:15 WBC 11.9 H (3.8-10.6) k/uL MCV 104.7 H (80.0-100.0) fL Neutrophils # 8.4 H (1.3-7.7) k/uL APTT 18.6 L (22.0-30.0) sec Carbon Dioxide 34 H (22-30) mmol/L Creatinine 0.49 L (0.66-1.25) mg/dL Glucose 182 H (74-99) mg/dL Alkaline Phosphatase 170 H (38-126) U/L Thrombosis Risk Factor Assmnt - Choose All That Apply Any of the Below Risk Factors Present?: Yes Each Factor Represents 1 point: Abnormal pulmonary function (COPD), Age 41-60 years, Obesity (BMI >25), Serious lung disease incl. pneumonia (< 1month) Other Risk Factors: No Other congenital or acquired thrombophilia - If yes, enter type in comment: No Thrombosis Risk Factor Assessment Total Risk Factor Score: 4 Thrombosis Risk Factor Assessment Level: Moderate Risk Assessment and Plan Assessment: Acute on chronic hypoxic, hypercapnic respiratory failure secondary to acute COPD exacerbation, in a patient discharged yesterday, with Acute on chronic hypoxic, hypercapnic respiratory failure, secondary to acute bilateral pn eum[place], possibly aspiration, possible community acquired, wears 3 L nasal cannula at home. Patient proceeded to smoke once home yesterday New prominent bilateral hilar lymph nodes, prominent subcarinal 2.5 x 1.1 cm lymph node Acute metabolic encephalopathy secondary to the above Hepatic encephalopathy, ammonia 95, fatty liver on CTA, denies alcohol abuse Chronic interstitial lung disease Ongoing Nicotine dependence Recurrent falls, denies alcohol use Seizure disorder, Dilantin level subtherapeutic on admission Gastroesophageal reflux disease Chronic renal failure, stage I Anemia of chronic disease History of CVA with residual left arm weakness Hypertension Chronic Systolic CHF, Ischemic heart disease CAD, history of [place] cardiac stent Obstructive sleep apnea Morbid Obesity, BMI 33.8 Hospital course: Continue on current medication regime ,monitoring and symptomatic treatment. BIPAP/ Aggressive pulmonary toileting, nebulized bronchodilators, steroids, antibiotics. Pulmonary consult in place, recommendations pending. Smoking cessation reinforced . ECHO pending.attempting to qualify patient for BiPAP at discharge with overnight pulse ox ordered , discussed with case management .Prognosis guarded in a patient with multiple complex medical issues. The impression and plan of care has been dictated as directed. : I performed a history and examination of this patient, discussed the same with the dictator. I agree with the dictator's note ,documented as a scribe. Any additional findings or plans will be noted.
[2021-01-26] MEDS: MONTELUKAST 10 MG TAB PO SCH (16:01)
[2021-01-26] MEDS: NICOTINE 14MG/24HR PATCH TRANSDERM SCH (16:01)
[2021-01-26 17:02] LABS: Glucose,Whole Blood 92 mg/dL (75-99)
[2021-01-26] MEDS: INSULIN ASPART (NovoLOG) 100 UNIT/ML VIAL SQ SCH ×2 (17:03→20:55)
[2021-01-26] MEDS: methylPREDNISolone SOD SUCCI 125 MG/2 ML VIAL IV SCH ×2 (17:08→22:40)
[2021-01-26] MEDS: metFORMIN 500 MG TAB PO SCH (17:08)
[2021-01-26] MEDS: FORMOTEROL FUMARATE 20 MCG/2 ML NEBU INHALATION SCH (19:52)
[2021-01-26] MEDS: BUDESONIDE 1 MG/2 ML NEBU INHALATION SCH (19:52)
[2021-01-26 20:44] LABS: Glucose,Whole Blood 143 mg/dL (75-99)
[2021-01-27] MEDS: metFORMIN 500 MG TAB PO SCH ×2 (06:09→16:55)
[2021-01-27] MEDS: methylPREDNISolone SOD SUCCI 125 MG/2 ML VIAL IV SCH ×3 (06:09→16:58)
[2021-01-27] MEDS: INSULIN ASPART (NovoLOG) 100 UNIT/ML VIAL SQ SCH ×4 (06:15→20:13)
[2021-01-27 06:41] LABS: Glucose,Whole Blood 102 mg/dL (75-99)
[2021-01-27] MEDS: BUDESONIDE 1 MG/2 ML NEBU INHALATION SCH ×2 (07:20→20:05)
[2021-01-27] MEDS: FORMOTEROL FUMARATE 20 MCG/2 ML NEBU INHALATION SCH ×2 (07:20→20:05)
[2021-01-27] MEDS: IPRATROPIUM-ALBUTEROL 3 ML NEB INHALATION SCH ×4 (07:20→20:05)
[2021-01-27 08:24] LABS: Basophils % (A) 1 %; Eosinophils # (A) 0.1 k/uL (0-0.7); Eosinophils % (A) 2 %; HCT 43.2 % (39.0-53.0); Hypochromasia Moderate; Lymphocytes # (A) 1.6 k/uL (1.0-4.8); Lymphocytes % (A) 23 %; MCH 32.2 pg (25.0-35.0); MCHC 30.7 g/dL (31.0-37.0); MCV 105.2 fL (80.0-100.0); Macrocytosis Moderate; Mean Platelet Volume 8.7; Monocytes # (A) 0.4 k/uL (0-1.0); Monocytes % (A) 6 %; Neutrophils # (A) 4.5 k/uL (1.3-7.7); Neutrophils % (A) 66 %; Platelet Count 130 k/uL (150-450); RDW 14.8 % (11.5-15.5); WBC 6.8 k/uL (3.8-10.6)
[2021-01-27 08:33] LABS: African American GFR (CKD) >90 (>60 ml/min/1.73 sqM); Anion Gap 1 mmol/L; Blood Urea Nitrogen 16 mg/dL (9-20); Calcium 8.5 mg/dL (8.4-10.2); Carbon Dioxide 40 mmol/L (22-30); Chloride 101 mmol/L (98-107); Glucose 87 mg/dL (74-99); Non-African American GFR(CKD) >90 (>60 ml/min/1.73 sqM); Potassium 3.7 mmol/L (3.5-5.1); Sodium 142 mmol/L (137-145)
[2021-01-27 08:45] LABS: HGB 13.2 gm/dL (13.0-17.5)
[2021-01-27] MEDS: PANTOPRAZOLE 40 MG/10 ML VIAL IVP SCH (09:34)
[2021-01-27] MEDS: HEPARIN SODIUM,PORCINE/PF 5,000 UNIT/0.5 ML SYRINGE SQ SCH ×2 (09:36→20:13)
[2021-01-27] MEDS: CHOLESTYRAMINE (WITH SUGAR) 4 GM PACKET PO SCH (09:37)
[2021-01-27] MEDS: LORATADINE 10 MG TAB PO SCH (09:38)
[2021-01-27] MEDS: ASPIRIN 325 MG TAB PO SCH (09:38)
[2021-01-27] MEDS: CLOPIDOGREL 75 MG TAB PO SCH (09:38)
[2021-01-27] MEDS: FUROSEMIDE 40 MG TAB PO SCH ×2 (09:38→16:55)
[2021-01-27] MEDS: ISOSORBIDE MONONITRATE ER 30 MG TAB.ER.24H PO SCH (09:38)
[2021-01-27] MEDS: NICOTINE 14MG/24HR PATCH TRANSDERM SCH (09:38)
[2021-01-27] MEDS: MAGNESIUM OXIDE 400 MG TAB PO SCH (09:38)
[2021-01-27] MEDS: MULTIVITAMINS, THERA 1 EACH TAB PO SCH (09:38)
[2021-01-27] MEDS: PHENYTOIN SODIUM EXTENDED 100 MG CAP PO SCH ×2 (09:38→20:12)
[2021-01-27] MEDS: PARoxetine 20 MG TAB PO SCH (09:38)
[2021-01-27] MEDS: FAMOTIDINE 20 MG TAB PO SCH (09:38)
[2021-01-27] MEDS: allopurinoL 100 MG TAB PO SCH (09:38)
[2021-01-27] MEDS: METOPROLOL TARTRATE 25 MG TAB PO SCH ×2 (09:38→20:12)
[2021-01-27] MEDS: LEVOFLOXACIN 750 MG TAB PO SCH (09:38)
[2021-01-27] MEDS: ATORVASTATIN 20 MG TAB PO SCH (10:08)
--- NOTE | 2021-01-27 11:26 | P.PN ---
Subjective Progress Note Date: 01/27/21 This is 60-year-old gentleman follows with Dr. Teran in the office with past medical history of CAD-myocardial infarction, cardiac stents, seizure disorder, CVA with residual left arm weakness SLE, COPD on 3 L home O2, nicotine dependence-2 packs per day, discharged yesterday with diagnosis of acute on chronic hypoxic hypercapnic respiratory failure secondary to bilateral pneumonia, acute CHF exacerbation and multiple other medical issues brought to the ER via EMS with complaints of increased shortness of breath, hypertensive. Patient reports he smoked 3 cigarettes once he arrived home. Reports near syncope while sitting on the toilet attempting to have a, BM. EMS reports patient requesting BiPAP, hypertensive with systolic blood pressure greater than 200, diaphoretic, cyanotic with a pulse ox in the 70s. He received nitroglycerin. On arrival O2 sats in the 90s, on CPAP,90L with blood pressure 129/91. Deny chest pain, palpitations. Currently 94% on 60% FiO2 BiPAP, mild tachycardia, borderline hypotension, systolic blood pressure high 90s. Afebrile, and ABC 11.9, hemoglobin 16.2, platelets 174, sodium 141, potassium 4.3, CO2 34, BUN 14, creatinine 0.49, glucose 182, magnesium 2, alk phos 170, troponin 0.0-2, BNP 2320. Influenza A/B,Coronavirus not detected. Chest x-ray reported little change since previous with increased interstitial densities in the mid to lower lungs bilaterally with scattered bibasilar atelectasis versus infiltrates or edema. EKG reported sinus rhythm with frequent PVCs, anterior infarct, age undetermined. 01/27/2021: Patient was found with the BiPAP on sleep. We have asked pulmonology to investigate a home BiPAP since he was immediately returned several hours after his most recent discharge. Vital signs are currently stable. Pulse ox 97% on BiPAP. Weight is currently 112.3 KG. Labs this morning show normal white count and hemoglobin. CO2 is 40. Kidney functions are normal. Pulmonology consultation review. 2-D echo shows some LVH. EF 55-60%. Mild mitral valve regurgitation, but otherwise normal. Currently Lyle is able to speak with the BiPAP on. Has no significant complaints other than fatigue and wanting to get a good night's sleep. He indicates he woke up multiple times. He denies any current chest pains, pressures, shortness breath at rest. He denies any nausea vomiting. Objective - Vital Signs Vital signs: Vital Signs Temp 97.8 F 01/27/21 08:00 Pulse 67 01/27/21 08:00 Resp 19 01/27/21 08:00 BP 97/50 01/27/21 08:00 Pulse Ox 97 01/27/21 08:00 Intake & Output 01/26/21 01/27/21 01/27/21 18:59 06:59 18:59 Intake Total 480 480 480 Output Total 350 Balance 480 130 480 Weight 111.13 kg 112.3 kg Intake: Oral 480 480 480 Output: Urine 350 Other: Voiding Method Urinal # Voids 2 # Bowel Movements 0 0 - Exam General: Obese, alert and oriented times 2, lying on his right side, asleep, wearing BiPAP Neck: [Supple, unable to assess JVD, short neck Cardiac: Heart regular in rate and rhythm. No S3. No S4. No clicks, rubs. No murmur. Lungs: Minimal air exchange, bilateral bases diminished.scattered rhonchi ,Fine expiratory wheezing, improved from 1 day Abdomen: [Soft , distended, nontender ,No mass. No organomegaly. Bowel sounds presnt. Extremities: Trace edema no cyanosis no claudication normal pulses Skin: Warm and dry, No rash. Neurologic: No lateralizing deficits. CN II - XII grossly intact; chronic residual left arm weakness. - Labs CBC & Chem 7: 01/27/21 07:27 01/27/21 07:27 Labs: Abnormal Lab Results - Last 24 Hours (Table) 01/26/21 01/26/21 01/27/21 Range/Units 12:14 20:42 06:11 RBC (4.30-5.90) m/uL MCV (80.0-100.0) fL MCHC (31.0-37.0) g/dL Plt Count (150-450) k/uL Carbon Dioxide (22-30) mmol/L Creatinine (0.66-1.25) mg/dL POC Glucose (mg/dL) 133 H 143 H 102 H (75-99) mg/dL 01/27/21 01/27/21 Range/Units 07:27 07:27 RBC 4.10 L (4.30-5.90) m/uL MCV 105.2 H (80.0-100.0) fL MCHC 30.7 L (31.0-37.0) g/dL Plt Count 130 L (150-450) k/uL Carbon Dioxide 40 H (22-30) mmol/L Creatinine 0.54 L (0.66-1.25) mg/dL POC Glucose (mg/dL) (75-99) mg/dL Assessment and Plan (1) Chronic low back pain Current Visit: Yes Status: Acute Code(s): M54.5 - LOW BACK PAIN; G89.29 - OTHER CHRONIC PAIN SNOMED Code(s): 431336113 (2) residential (current) use of opiate analgesic Current Visit: Yes Status: Acute Code(s): Z79.891 - FDC (CURRENT) USE OF OPIATE ANALGESIC SNOMED Code(s): 605732261 (3) Dyspnea Current Visit: Yes Status: Acute Code(s): R06.00 - DYSPNEA, UNSPECIFIED SNOMED Code(s): 592808069 (4) Acute and chronic respiratory failure Current Visit: No Status: Acute Code(s): J96.20 - ACUTE AND CHR RESP FAILURE, UNSP W HYPOXIA OR HYPERCAPNIA SNOMED Code(s): 37063213 (5) Acute exacerbation of chronic obstructive airways disease Current Visit: No Status: Acute Code(s): J44.1 - CHRONIC OBSTRUCTIVE PULMONARY DISEASE W (ACUTE) EXACERBATION SNOMED Code(s): 664127901 (6) HTN (hypertension) Current Visit: No Status: Acute Code(s): I10 - ESSENTIAL (PRIMARY) HYPERTENSION SNOMED Code(s): 59703492 (7) History of home oxygen therapy Current Visit: No Status: Acute Code(s): Z99.81 - DEPENDENCE ON SUPPLEMENTAL OXYGEN SNOMED Code(s): 259241592 (8) History of seizure disorder Current Visit: No Status: Acute Code(s): Z86.69 - PERSONAL HISTORY OF DIS OF THE NERVOUS SYS AND SENSE ORGANS SNOMED Code(s): 859182018 (9) Nicotine addiction Current Visit: No Status: Acute Code(s): F17.200 - NICOTINE DEPENDENCE, UNSPECIFIED, UNCOMPLICATED SNOMED Code(s): 43978590 Plan: We'll repeat labs in am. Wait and pulmonology, evaluation for today. Possible BiPAP at home. Smoking cessation was discussed with him once again at length and then directly led to his return to the hospital. We'll reevaluate next 24 hours.
[2021-01-27 11:41] LABS: Glucose,Whole Blood 114 mg/dL (75-99)
--- NOTE | 2021-01-27 13:29 | P.PN ---
Subjective Progress Note Date: 01/27/21 Principal diagnosis: Shortness of breath. Pulmonary consult dated 01/26/2021. 60-year-old male, brought in by EMS, for shortness of breath and respiratory distress. The patient apparently was wearing a CPAP mask when he came in. The patient was recently in the hospital, having been admitted on January 17, and discharged on January 25. He was COVID negative. Currently, the patient's on BiPAP at 14/6, with an FiO2 of 60%. The patient is not receiving any IV fluids. Apparently when he came in, his blood pressure was quite high, and he was given some nitroglycerin. Currently, he is on BiPAP. The patient has quite severe COPD. In addition, the patient has a history of CAD, angina, heart failure, stroke, GERD, hyperlipidemia, hypertension, myocardial infarction, DJD, p neumonia, seizure disorder, and sleep apnea syndrome. Admission labs included a white count 11.9, heme him 16.2, hematocrit 52.3, and platelet count 174,000. PT/INR and PTT are all within normal range. Sodium 143, potassium 4.3, chlorides 101, CO2 34, anion gap 6, BUN 14, creatinine 0.49. N-terminal proBNP 2320. Based on the carbon dioxide concentration on the electrolyte profile, the patient's baseline PaCO2 should be right around 60 mmHg. This is based on the Iverson formula. Chest x-ray shows some bibasilar atelectasis. Progress note dated 01/27/2021. Currently, the patient's doing better. He is on 6 L high flow O2. His saturations are 88%. Also, from time to time, he goes on BiPAP, with settings of IPAP 14, EPAP 6, and 60% FiO2. The patient sitting up in the chair. He fee ls much better. The patient was recently in the hospital between January 17, discharged on January 25. He was readmitted on January 26. The patient carries with him a diagnosis of CAD, angina, heart failure, stroke, GERD, hyperlipidemia, hypertension, myocardial infarction, DJD, pneumonia, seizure disorder, sleep apnea syndrome. Labs include a white count 6.8, he will 13.2, hematocrit 43.2, and platelet count 130,000. Sodium potassium chloride normal. CO2 40. Anion gap 1, BUN 16, creatinine 0.54. No recent chest x-ray. Objective - Vital Signs Vital signs: Vital Signs Temp 98 F 01/27/21 12:00 Pulse 96 01/27/21 12:03 Resp 20 01/27/21 12:00 BP 139/63 01/27/21 12:00 Pulse Ox 88 L 01/27/21 12:00 Intake & Output 01/26/21 01/27/21 01/27/21 18:59 06:59 18:59 Intake Total 480 480 480 Output Total 350 Balance 480 130 480 Weight 111.13 kg 112.3 kg Intake: Oral 480 480 480 Output: Urine 350 Other: Voiding Method Urinal # Voids 2 # Bowel Movements 0 0 - Exam Much more awake and alert. Currently on 6 L. Saturations 88-90% HEENT examination is grossly unremarkable. Neck supple. Full range of motion. No adenopathy thyromegaly or neck vein distention. Cardiovascular examination reveals regular rhythm rate. S1-S2 normal. No S3 or S4. No discernible murmur noted. Heart sounds are distant. Heart rate 96 bpm. Lungs reveal diffuse and bilateral scattered rhonchi. Fine wheezes are noted. No crackles. Breath sounds equal bilaterally but diminished throughout. Abdomen soft bowel sounds are heard. No masses or tenderness. Extremities are intact. Trace edema. No cyanosis or clubbing.. Skin is without rash or lesion. Neurologic examination is brief but nonfocal. - Labs CBC & Chem 7: 01/27/21 07:27 01/27/21 07:27 Labs: Abnormal Lab Results - Last 24 Hours (Table) 01/26/21 01/27/21 01/27/21 Range/Units 20:42 06:11 07:27 RBC 4.10 L (4.30-5.90) m/uL MCV 105.2 H (80.0-100.0) fL MCHC 30.7 L (31.0-37.0) g/dL Plt Count 130 L (150-450) k/uL Carbon Dioxide (22-30) mmol/L Creatinine (0.66-1.25) mg/dL POC Glucose (mg/dL) 143 H 102 H (75-99) mg/dL 01/27/21 01/27/21 Range/Units 07:27 11:40 RBC (4.30-5.90) m/uL MCV (80.0-100.0) fL MCHC (31.0-37.0) g/dL Plt Count (150-450) k/uL Carbon Dioxide 40 H (22-30) mmol/L Creatinine 0.54 L (0.66-1.25) mg/dL POC Glucose (mg/dL) 114 H (75-99) mg/dL Assessment and Plan Assessment: Acute hypoxemic and hypercapnic respiratory failure secondary to COPD exacerbation. Current ongoing tobacco use with nicotine addiction. History of CAD. History of CHF. History of CVA/TIA. History of gastroesophageal reflux disease. History of hyperlipidemia. History of hypertension. Prior history of myocardial infarction. History of osteoarthritis. History of seizure disorder. History of sleep apnea syndrome, maintained on CPAP. CAD, previous stent placement. Multiple other medical problems and comorbidities. Plan: Plan dated 01/26/2021. The patient should be maintained on albuterol sulfate, and ipratropium bromide, 4 times a day and when necessary. In addition, the patient should stay on the BiPAP for now. The patient should also receive systemic corticosteroids, convalescent to Solu-Medrol, 60 mg every 6 hours, as well as Pulmicort, 1 mg twice a day mixed with formoterol, 20 g. Recommendations suggestions are forthcoming. Prognosis is guarded. We'll continue to follow. Plan dated 01/27/2021. The patient is maintained on DuoNeb, 4 times a day and when necessary. In addition, the patient's receiving systemic corticosteroids, and Solu-Medrol, 60 mg every 6 hours. Finally, the patient's getting Pulmicort, 1 mg, twice a day, mixed with formoterol, 20 g twice a day. Additional recommendations and suggestions are forthcoming. The patient has been continuing to smoke. He is sabotaging his health. He is counseled about the importance of smoking cessation. Clinically he is much more awake and alert today. Will continue to follow. Time with Patient: Less than 30
[2021-01-27 16:44] LABS: Glucose,Whole Blood 150 mg/dL (75-99)
[2021-01-27 16:50] LABS: Magnesium 1.9 mg/dL (1.6-2.3); Potassium 4.4 mmol/L (3.5-5.1)
[2021-01-27] MEDS: MONTELUKAST 10 MG TAB PO SCH (16:55)
[2021-01-27] MEDS: HYDROcodone/APAP 7.5-325MG 1 EACH TAB PO PRN ×2 (17:05→20:12)
[2021-01-27 20:13] LABS: Glucose,Whole Blood 145 mg/dL (75-99)
[2021-01-28] MEDS: methylPREDNISolone SOD SUCCI 125 MG/2 ML VIAL IV SCH ×5 (00:24→23:52)
[2021-01-28] MEDS: HYDROcodone/APAP 7.5-325MG 1 EACH TAB PO PRN ×4 (02:14→20:41)
[2021-01-28 06:11] LABS: Glucose,Whole Blood 94 mg/dL (75-99)
[2021-01-28] MEDS: INSULIN ASPART (NovoLOG) 100 UNIT/ML VIAL SQ SCH ×4 (06:12→20:39)
[2021-01-28] MEDS: metFORMIN 500 MG TAB PO SCH ×2 (06:12→17:07)
[2021-01-28] MEDS: FUROSEMIDE 40 MG TAB PO SCH ×2 (07:27→17:07)
[2021-01-28] MEDS: allopurinoL 100 MG TAB PO SCH (07:27)
[2021-01-28] MEDS: ASPIRIN 325 MG TAB PO SCH (07:27)
[2021-01-28] MEDS: ATORVASTATIN 20 MG TAB PO SCH (07:27)
[2021-01-28] MEDS: PARoxetine 20 MG TAB PO SCH (07:27)
[2021-01-28] MEDS: HEPARIN SODIUM,PORCINE/PF 5,000 UNIT/0.5 ML SYRINGE SQ SCH ×2 (07:27→20:40)
[2021-01-28] MEDS: LORATADINE 10 MG TAB PO SCH (07:28)
[2021-01-28] MEDS: PANTOPRAZOLE 40 MG/10 ML VIAL IVP SCH (07:28)
[2021-01-28] MEDS: ISOSORBIDE MONONITRATE ER 30 MG TAB.ER.24H PO SCH (07:28)
[2021-01-28] MEDS: PHENYTOIN SODIUM EXTENDED 100 MG CAP PO SCH ×2 (07:28→20:39)
[2021-01-28] MEDS: METOPROLOL TARTRATE 25 MG TAB PO SCH ×2 (07:28→20:39)
[2021-01-28] MEDS: CLOPIDOGREL 75 MG TAB PO SCH (07:28)
[2021-01-28] MEDS: LEVOFLOXACIN 750 MG TAB PO SCH (07:28)
[2021-01-28] MEDS: FAMOTIDINE 20 MG TAB PO SCH (07:28)
[2021-01-28] MEDS: NICOTINE 14MG/24HR PATCH TRANSDERM SCH (07:29)
[2021-01-28] MEDS: MAGNESIUM OXIDE 400 MG TAB PO SCH (07:29)
[2021-01-28] MEDS: MULTIVITAMINS, THERA 1 EACH TAB PO SCH (07:29)
[2021-01-28 07:34] LABS: Basophils % (A) 0 %; Eosinophils # (A) 0.1 k/uL (0-0.7); Eosinophils % (A) 2 %; HCT 44.6 % (39.0-53.0); HGB 13.8 gm/dL (13.0-17.5); Hypochromasia Slight; Lymphocytes # (A) 1.7 k/uL (1.0-4.8); Lymphocytes % (A) 26 %; MCH 31.9 pg (25.0-35.0); MCHC 30.9 g/dL (31.0-37.0); MCV 103.1 fL (80.0-100.0); Macrocytosis Slight; Mean Platelet Volume 8.3; Monocytes # (A) 0.3 k/uL (0-1.0); Monocytes % (A) 5 %; Neutrophils # (A) 4.3 k/uL (1.3-7.7); Neutrophils % (A) 65 %; Platelet Count 144 k/uL (150-450); RBC 4.32 m/uL (4.30-5.90); RDW 14.4 % (11.5-15.5); WBC 6.6 k/uL (3.8-10.6)
[2021-01-28 07:49] LABS: African American GFR (CKD) >90 (>60 ml/min/1.73 sqM); Anion Gap 3 mmol/L; Blood Urea Nitrogen 14 mg/dL (9-20); Calcium 8.6 mg/dL (8.4-10.2); Carbon Dioxide 38 mmol/L (22-30); Chloride 101 mmol/L (98-107); Glucose 101 mg/dL (74-99); Magnesium 1.9 mg/dL (1.6-2.3); Non-African American GFR(CKD) >90 (>60 ml/min/1.73 sqM); Potassium 3.4 mmol/L (3.5-5.1); Sodium 142 mmol/L (137-145)
[2021-01-28] MEDS: CHOLESTYRAMINE (WITH SUGAR) 4 GM PACKET PO SCH (08:44)
[2021-01-28] MEDS: FORMOTEROL FUMARATE 20 MCG/2 ML NEBU INHALATION SCH ×2 (09:02→20:34)
[2021-01-28] MEDS: IPRATROPIUM-ALBUTEROL 3 ML NEB INHALATION SCH ×4 (09:02→20:34)
[2021-01-28] MEDS: BUDESONIDE 1 MG/2 ML NEBU INHALATION SCH ×2 (09:02→20:34)
[2021-01-28] MEDS ORDERED: Potassium Replacement Protocol 1 EACH MISC MISCELLANE PRN (09:28)
[2021-01-28] MEDS: POTASSIUM CHLORIDE ER 20 MEQ TAB.ER PO SCH ×2 (09:51→11:11)
--- NOTE | 2021-01-28 10:43 | P.PN ---
Subjective This is 60-year-old gentleman follows with Dr. Teran in the office with past medical history of CAD-myocardial infarction, cardiac stents, seizure disorder, CVA with residual left arm weakness SLE, COPD on 3 L home O2, nicotine dependence-2 packs per day, discharged yesterday with diagnosis of acute on chronic hypoxic hypercapnic respiratory failure secondary to bilateral pneumonia, acute CHF exacerbation and multiple other medical issues brought to the ER via EMS with complaints of increased shortness of breath, hypertensive. Patient reports he smoked 3 cigarettes once he arrived home. Reports near syncope while sitting on the toilet attempting to have a, BM. EMS reports patient requesting BiPAP, hypertensive with systolic blood pressure greater than 200, diaphoretic, cyanotic with a pulse ox in the 70s. He received nitroglycer in. On arrival O2 sats in the 90s, on CPAP,90L with blood pressure 129/91. Deny chest pain, palpitations. Currently 94% on 60% FiO2 BiPAP, mild tachycardia, borderline hypotension, systolic blood pressure high 90s. Afebrile, and ABC 11.9, hemoglobin 16.2, platelets 174, sodium 141, potassium 4.3, CO2 34, BUN 14, creatinine 0.49, glucose 182, magnesium 2, alk phos 170, troponin 0.0-2, BNP 2320. Influenza A/B,Coronavirus not detected. Chest x-ray reported little change since previous with increased interstitial densities in the mid to lower lungs bilaterally with scattered bibasilar atelectasis versus infiltrates or edema. EKG reported sinus rhythm with frequent PVCs, anterior infarct, age undetermined. 01/27/2021: Patient was found with the BiPAP on sleep. We have asked pulmonology to investigate a home BiPAP since he was immediately returned several hours after his most recent discharge. Vital signs are currently stable. Pulse ox 97% on BiPAP. Weight is currently 112.3 KG. Labs this morning show normal white count and hemoglobin. CO2 is 40. Kidney functions are normal. Pulmonology consultation review. 2-D echo shows some LVH. EF 55-60%. Mild mitral valve regurgitation, but otherwise normal. Currently Lyle is able to speak with the BiPAP on. Has no significant comp laints other than fatigue and wanting to get a good night's sleep. He indicates he woke up multiple times. He denies any current chest pains, pressures, shortness breath at rest. He denies any nausea vomiting. 01/28/2021: Patient remains on the stepdown unit. His vitals are currently stable. He continues to use BiPAP at night and currently is on nasal cannula at 6 L per minute maintaining a pulse oxygenation of 93%. Weight is down proximally 6 kg from admission. He remains on Lasix 80 mg by mouth twice a day. He denies any chest pains pressures, nausea, or vomiting this time. He remains on albuterol, budesonide, flowmeter all, ipratropium, methylprednisolone, Singulair for his breathing. He remains on Levaquin for antibiotic coverage. He remains on phenytoin for seizure history. Remains on CellCept for his lupus nephritis history. He denies a significant complaints or changes overnight. Pulmonology is following him. Objective - Vital Signs Vital signs: Vital Signs Temp 98 F 01/28/21 07:16 Pulse 88 01/28/21 09:26 Resp 20 01/28/21 07:16 BP 166/80 01/28/21 07:16 Pulse Ox 93 L 01/28/21 07:16 Intake & Output 01/27/21 01/28/21 01/28/21 18:59 06:59 18:59 Intake Total 920 360 240 Output Total 450 Balance 920 -90 240 Weight 106.9 kg Intake: IV 20 0.9 20 Oral 900 360 240 Output: Urine 450 Other: Voiding Method Urinal Urinal - Exam General: Obese, alert and oriented times 3, sitting and eating and watching television this time. Neck: [Supple, unable to assess JVD, short neck Cardiac: Heart regular in rate and rhythm. No S3. No S4. No clicks, rubs. No murmur. Lungs: Minimal air exchange, bilateral bases diminished.scattered rhonchi ,Fine expiratory wheezing, improved from 1 day Abdomen: [Soft , distended, nontender ,No mass. No organomegaly. Bowel sounds presnt. Extremities: Trace edema no cyanosis no claudication normal pulses Skin: Warm and dry, No rash. Neurologic: No lateralizing deficits. CN II - XII grossly intact; chronic residual left arm weakness. - Labs CBC & Chem 7: 01/28/21 07:13 01/28/21 07:13 Labs: Abnormal Lab Results - Last 24 Hours (Table) 01/27/21 01/27/21 01/27/21 Range/Units 11:40 16:42 20:12 MCV (80.0-100.0) fL MCHC (31.0-37.0) g/dL Plt Count (150-450) k/uL Potassium (3.5-5.1) mmol/L Carbon Dioxide (22-30) mmol/L Creatinine (0.66-1.25) mg/dL Glucose (74-99) mg/dL POC Glucose (mg/dL) 114 H 150 H 145 H (75-99) mg/dL 01/28/21 01/28/21 Range/Units 07:13 07:13 MCV 103.1 H (80.0-100.0) fL MCHC 30.9 L (31.0-37.0) g/dL Plt Count 144 L (150-450) k/uL Potassium 3.4 L (3.5-5.1) mmol/L Carbon Dioxide 38 H (22-30) mmol/L Creatinine 0.51 L (0.66-1.25) mg/dL Glucose 101 H (74-99) mg/dL POC Glucose (mg/dL) (75-99) mg/dL Assessment and Plan (1) Acute exacerbation of chronic obstructive airways disease Current Visit: No Status: Acute Code(s): J44.1 - CHRONIC OBSTRUCTIVE PULMONARY DISEASE W (ACUTE) EXACERBATION SNOMED Code(s): 706863808 (2) Acute and chronic respiratory failure Current Visit: No Status: Acute Code(s): J96.20 - ACUTE AND CHR RESP FAILURE, UNSP W HYPOXIA OR HYPERCAPNIA SNOMED Code(s): 67001492 (3) Chronic low back pain Current Visit: Yes Status: Acute Code(s): M54.5 - LOW BACK PAIN; G89.29 - OTHER CHRONIC PAIN SNOMED Code(s): 435236748 (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 Current Visit: Yes Status: Acute Code(s): Z79.891 - RESIDENTIAL (CURRENT) USE OF OPIATE ANALGESIC SNOMED Code(s): 635768574 (5) Dyspnea Current Visit: Yes Status: Acute Code(s): R06.00 - DYSPNEA, UNSPECIFIED SNOMED Code(s): 290902873 (6) HTN (hypertension) Current Visit: No Status: Acute Code(s): I10 - ESSENTIAL (PRIMARY) HYPE RTENSION SNOMED Code(s): 39063764 (7) History of home oxygen therapy Current Visit: No Status: Acute Code(s): Z99.81 - DEPENDENCE ON SUPPLEMENTAL OXYGEN SNOMED Code(s): 349582597 (8) History of seizure disorder Current Visit: No Status: Acute Code(s): Z86.69 - PERSONAL HISTORY OF DIS OF THE NERVOUS SYS AND SENSE ORGANS SNOMED Code(s): 954988456 (9) Nicotine addiction Current Visit: No Status: Acute Code(s): F17.200 - NICOTINE DEPENDENCE, UNSPECIFIED, UNCOMPLICATED SNOMED Code(s): 81134765 (10) Lupus nephritis Current Visit: Yes Status: Acute Code(s): M32.14 - GLOMERULAR DISEASE IN SYSTEMIC LUPUS ERYTHEMATOSUS SNOMED Code(s): 97905288 (11) Long-term use of immunosuppressant medication Current Visit: Yes Status: Acute Code(s): Z79.899 - OTHER [employer] (CURRENT) DRUG THERAPY SNOMED Code(s): 194079497 Plan: We'll repeat labs in am. Wait and pulmonology, evaluation for today. Possible BiPAP at home. Smoking cessation was discussed with him once again at length and then directly led to his return to the hospital. He continues to slowly improve. We'll reevaluate next 24 hours.
[2021-01-28] MEDS: MONTELUKAST 10 MG TAB PO SCH (11:11)
[2021-01-28 11:41] LABS: Glucose,Whole Blood 111 mg/dL (75-99)
[2021-01-28 16:37] LABS: Glucose,Whole Blood 149 mg/dL (75-99)
--- NOTE | 2021-01-28 16:42 | P.PN ---
Subjective Progress Note Date: 01/28/21 Principal diagnosis: Shortness of breath. Pulmonary consult dated 01/26/2021. 60-year-old male, brought in by EMS, for shortness of breath and respiratory distress. The patient apparently was wearing a CPAP mask when he came in. The patient was recently in the hospital, having been admitted on January 17, and discharged on January 25. He was COVID negative. Currently, the patient's on BiPAP at 14/6, with an FiO2 of 60%. The patient is not receiving any IV fluids. Apparently when he came in, his blood pressure was quite high, and he was given some nitroglycerin. Currently, he is on BiPAP. The patient has quite severe COPD. In addition, the patient has a history of CAD, angina, heart failure, stroke, GERD, hyperlipidemia, hypertension, myocardial infarction, DJD, p neumonia, seizure disorder, and sleep apnea syndrome. Admission labs included a white count 11.9, heme him 16.2, hematocrit 52.3, and platelet count 174,000. PT/INR and PTT are all within normal range. Sodium 143, potassium 4.3, chlorides 101, CO2 34, anion gap 6, BUN 14, creatinine 0.49. N-terminal proBNP 2320. Based on the carbon dioxide concentration on the electrolyte profile, the patient's baseline PaCO2 should be right around 60 mmHg. This is based on the Iverson formula. Chest x-ray shows some bibasilar atelectasis. Progress note dated 01/27/2021. Currently, the patient's doing better. He is on 6 L high flow O2. His saturations are 88%. Also, from time to time, he goes on BiPAP, with settings of IPAP 14, EPAP 6, and 60% FiO2. The patient sitting up in the chair. He fee ls much better. The patient was recently in the hospital between January 17, discharged on January 25. He was readmitted on January 26. The patient carries with him a diagnosis of CAD, angina, heart failure, stroke, GERD, hyperlipidemia, hypertension, myocardial infarction, DJD, pneumonia, seizure disorder, sleep apnea syndrome. Labs include a white count 6.8, he will 13.2, hematocrit 43.2, and platelet count 130,000. Sodium potassium chloride normal. CO2 40. Anion gap 1, BUN 16, creatinine 0.54. No recent chest x-ray. Progress note dated 01/28/2021. The patient sitting up at the bedside. He feels much improved today. Currently, the patient's on nasal O2 6 L. He does use BiPAP from time to time at 14/6 and 50%. He's not receiving any IV fluids. , Clinically, he feels much improved. His breathing is better. He denies chest pain, chest discomfort, fever, chills, cough, or phlegm production. White count 6.6, hemoglobin 13.8, hematocrit 44.6, platelet count 144,000. Sodium 142, potassium 3.4, chlorides 101, CO2 38, anion gap 3, BUN 14, creatinine 0.51. Objective - Vital Signs Vital signs: Vital Signs Temp 98.2 F 01/28/21 11:12 Pulse 76 01/28/21 13:01 Resp 20 01/28/21 11:12 BP 132/81 01/28/21 11:12 Pulse Ox 95 01/28/21 11:12 Intake & Output 01/27/21 01/28/21 01/28/21 18:59 06:59 18:59 Intake Total 920 360 500 Output Total 450 Balance 920 -90 500 Weight 106.9 kg Intake: IV 20 20 0.9 20 20 Oral 900 360 480 Output: Urine 450 Other: Voiding Method Urinal Urinal Urinal - Exam Much more awake and alert. Currently on 6 L. Saturations are 95%. HEENT examination is grossly unremarkable. Neck supple. Full range of motion. No adenopathy thyromegaly or neck vein distention. Cardiovascular examination reveals regular rhythm rate. S1-S2 normal. No S3 or S4. No discernible murmur noted. Heart sounds are distant. Heart rate 76 bpm. Lungs reveal diffuse and bilateral scattered rhonchi. Fine wheezes are noted. No crackles. Breath sounds equal bilaterally but diminished throughout. Abdomen soft bowel sounds are heard. No masses or tenderness. Extremities are intact. Trace edema. No cyanosis or clubbing.. Skin is without rash or lesion. Neurologic examination is brief but nonfocal. - Labs CBC & Chem 7: 01/28/21 07:13 01/28/21 07:13 Labs: Abnormal Lab Results - Last 24 Hours (Table) 01/27/21 01/27/21 01/28/21 Range/Units 16:42 20:12 07:13 MCV 103.1 H (80.0-100.0) fL MCHC 30.9 L (31.0-37.0) g/dL Plt Count 144 L (150-450) k/uL Potassium (3.5-5.1) mmol/L Carbon Dioxide (22-30) mmol/L Creatinine (0.66-1.25) mg/dL Glucose (74-99) mg/dL POC Glucose (mg/dL) 150 H 145 H (75-99) mg/dL 01/28/21 01/28/21 01/28/21 Range/Units 07:13 11:40 16:35 MCV (80.0-100.0) fL MCHC (31.0-37.0) g/dL Plt Count (150-450) k/uL Potassium 3.4 L (3.5-5.1) mmol/L Carbon Dioxide 38 H (22-30) mmol/L Creatinine 0.51 L (0.66-1.25) mg/dL Glucose 101 H (74-99) mg/dL POC Glucose (mg/dL) 111 H 149 H (75-99) mg/dL Assessment and Plan Assessment: Acute hypoxemic and hypercapnic respiratory failure secondary to COPD exacerbation, with recent admission on January 17, and discharge on January 25. Current ongoing tobacco use with nicotine addiction. History of CAD. History of CHF. History of CVA/TIA. History of gastroesophageal reflux disease. History of hyperlipidemia. History of hypertension. Prior history of myocardial infarction. History of osteoarthritis. History of seizure disorder. History of sleep apnea syndrome, maintained on CPAP. CAD, previous stent placement. Multiple other medical problems and comorbidities. Plan: Plan dated 01/26/2021. The patient should be maintained on albuterol sulfate, and ipratropium bromide, 4 times a day and when necessary. In addition, the patient should stay on the BiPAP for now. The patient should also receive systemic corticosteroids, convalescent to Solu-Medrol, 60 mg every 6 hours, as well as Pulmicort, 1 mg twice a day mixed with formoterol, 20 g. Recommendations suggestions are forthcoming. Prognosis is guarded. We'll continue to follow. Plan dated 01/27/2021. The patient is maintained on DuoNeb, 4 times a day and when necessary. In addition, the patient's receiving systemic corticosteroids, and Solu-Medrol, 60 mg every 6 hours. Finally, the patient's getting Pulmicort, 1 mg, twice a day, mixed with formoterol, 20 g twice a day. Additional recommendations and suggestions are forthcoming. The patient has been continuing to smoke. He is sabotaging his health. He is counseled about the importance of smoking cessation. Clinically he is much more awake and alert today. Will continue to follow. Plan dated 01/28/2021. Currently, the patient is feeling much improved. The patient has been weaned down to 6 L. He is using BiPAP from time to time. He states that his breathing is much improved. He sitting at the bedside. He is currently on appropriate medications including Solu-Medrol, updrafts, and a combination of Pulmicort and formoterol twice a day. Additional recommendations and suggestions are forthcoming. He is counseled about the importance of smoking cessation. We will continue to follow make recommendations where appropriate. Time with Patient: Less than 30
[2021-01-28 20:03] LABS: Glucose,Whole Blood 121 mg/dL (75-99)
[2021-01-29] MEDS: methylPREDNISolone SOD SUCCI 125 MG/2 ML VIAL IV SCH (06:30)
[2021-01-29] MEDS: INSULIN ASPART (NovoLOG) 100 UNIT/ML VIAL SQ SCH ×4 (06:30→20:28)
[2021-01-29] MEDS: metFORMIN 500 MG TAB PO SCH ×2 (06:30→16:36)
[2021-01-29] MEDS: HYDROcodone/APAP 7.5-325MG 1 EACH TAB PO PRN ×3 (06:31→20:25)
[2021-01-29 06:33] LABS: Glucose,Whole Blood 117 mg/dL (75-99)
[2021-01-29] MEDS: FORMOTEROL FUMARATE 20 MCG/2 ML NEBU INHALATION SCH ×2 (08:47→19:37)
[2021-01-29] MEDS: IPRATROPIUM-ALBUTEROL 3 ML NEB INHALATION SCH ×4 (08:47→19:37)
[2021-01-29] MEDS: BUDESONIDE 1 MG/2 ML NEBU INHALATION SCH ×2 (08:47→19:37)
[2021-01-29 08:54] LABS: African American GFR (CKD) >90 (>60 ml/min/1.73 sqM); Anion Gap 4 mmol/L; Blood Urea Nitrogen 13 mg/dL (9-20); Calcium 9.3 mg/dL (8.4-10.2); Chloride 98 mmol/L (98-107); Glucose 113 mg/dL (74-99); Non-African American GFR(CKD) >90 (>60 ml/min/1.73 sqM); Potassium 4.3 mmol/L (3.5-5.1); Sodium 142 mmol/L (137-145)
[2021-01-29] MEDS: ISOSORBIDE MONONITRATE ER 30 MG TAB.ER.24H PO SCH (08:59)
[2021-01-29] MEDS: PARoxetine 20 MG TAB PO SCH (08:59)
[2021-01-29] MEDS: ATORVASTATIN 20 MG TAB PO SCH (08:59)
[2021-01-29] MEDS: MULTIVITAMINS, THERA 1 EACH TAB PO SCH (08:59)
[2021-01-29] MEDS: FUROSEMIDE 40 MG TAB PO SCH ×2 (08:59→16:39)
[2021-01-29 09:00] LABS: Carbon Dioxide 40 mmol/L (22-30)
[2021-01-29] MEDS: PANTOPRAZOLE 40 MG/10 ML VIAL IVP SCH (09:00)
[2021-01-29] MEDS: ASPIRIN 325 MG TAB PO SCH (09:00)
[2021-01-29] MEDS: allopurinoL 100 MG TAB PO SCH (09:00)
[2021-01-29] MEDS: NICOTINE 14MG/24HR PATCH TRANSDERM SCH (09:00)
[2021-01-29] MEDS: HEPARIN SODIUM,PORCINE/PF 5,000 UNIT/0.5 ML SYRINGE SQ SCH ×2 (09:00→20:25)
[2021-01-29] MEDS: PHENYTOIN SODIUM EXTENDED 100 MG CAP PO SCH ×2 (09:00→20:25)
[2021-01-29] MEDS: CLOPIDOGREL 75 MG TAB PO SCH (09:00)
[2021-01-29] MEDS: FAMOTIDINE 20 MG TAB PO SCH (09:00)
[2021-01-29] MEDS: LEVOFLOXACIN 750 MG TAB PO SCH (09:04)
[2021-01-29] MEDS: MAGNESIUM OXIDE 400 MG TAB PO SCH (09:04)
[2021-01-29] MEDS: LORATADINE 10 MG TAB PO SCH (09:04)
[2021-01-29] MEDS: METOPROLOL TARTRATE 25 MG TAB PO SCH ×2 (09:04→20:25)
[2021-01-29 11:20] LABS: Glucose,Whole Blood 117 mg/dL (75-99)
[2021-01-29] MEDS: CHOLESTYRAMINE (WITH SUGAR) 4 GM PACKET PO SCH (11:33)
--- NOTE | 2021-01-29 13:21 | P.PN ---
Subjective Progress Note Date: 01/29/21 On today's evaluation of 01/29/2021, I'm seeing this patient for a follow-up. The patient is currently in the hospital because of an acute hypoxic/hypercapnic respiratory failure secondary to COPD exacerbation. He is known to have multiple other medical problems and comorbidities including CAD, CHF, previous history of CVA, hypertension and hyperlipidemia. He also has history of obstructive sleep apnea maintained on CPAP therapy on outpatient basis. He is known to have CAD with previous coronary stent insertion. During the course of the treatment, the patient was treated with a combination of IV Solu Medrol 60 mg every 6 hours, he received a combination of Brovana Pulmicort neb last 2 minutes twice a day and albuterol ipratropium nebulized treatments 4 times a day. The patient was also supported with BiPAP at a pressure of 12/6 cm of water and FiO2 of 50%. The patient is chronically immunosuppressed with CellCept. He is known to have SLE. No fever. No chills. His antibiotic cove rage includes Levaquin 750 mg by mouth daily. Rest of the medications have been all resumed the majority of them are outpatient medication. He remains on Lasix 80 mg by mouth twice a day. Objective - Vital Signs Vital signs: Vital Signs Temp 98.4 F 01/29/21 08:55 Pulse 72 01/29/21 12:50 Resp 20 01/29/21 11:33 BP 127/59 01/29/21 11:33 Pulse Ox 96 01/29/21 11:33 Intake & Output 01/28/21 01/29/21 01/29/21 18:59 06:59 18:59 Intake Total 740 240 Balance 740 240 Weight 102.5 kg Intake: IV 20 0.9 20 Oral 720 240 Other: Voiding Method Urinal Toilet Toilet # Voids 2 - Exam Patient is currently calm and comfortable on oxygen 6 L his per minute nasal cannula and he also has a BiPAP at the bedside. BMI 33 Head exam was generally normal. There was no scleral icterus or corneal arcus. Mucous membranes were moist. Neck was supple and without jugular venous distension, thyromegaly, or carotid bruits. Carotids were easily palpable bilaterally. There was no adenopathy. Lungs sounds are diminished and the patient has scattered expiratory wheezes throughout the lung his bilaterally Cardiac exam revealed the PMI to be normally situated and sized. The rhythm was regular and no extrasystoles were noted during several minutes of auscultation. The first and second heart sounds were normal and physiologic splitting of the second heart sound was noted. There were no murmurs, rubs, clicks, or gallops. Abdominal exam revealed normal bowel sounds. The abdomen was soft, non-tender, and without masses, organomegaly, or appreciable enlargement of the abdominal aorta. Examination of the extremities revealed easily palpable radial, femoral and pedal pulses. There was no cyanosis, clubbing or edema. Examination of the skin revealed no evidence of significant rashes, suspicious appearing nevi or other concerning lesions. Neurologically, the patient is awake and alert and the patient does not have any focal neurological deficit. Cranial nerves are essentially intact. - Labs CBC & Chem 7: 01/28/21 07:13 01/29/21 07:45 Labs: Abnormal Lab Results - Last 24 Hours (Table) 01/28/21 01/28/21 01/29/21 Range/Units 16:35 20:01 06:26 Carbon Dioxide (22-30) mmol/L Creatinine (0.66-1.25) mg/dL Glucose (74-99) mg/dL POC Glucose (mg/dL) 149 H 121 H 117 H (75-99) mg/dL 01/29/21 01/29/21 Range/Units 07:45 11:17 Carbon Dioxide 40 H (22-30) mmol/L Creatinine 0.58 L (0.66-1.25) mg/dL Glucose 113 H (74-99) mg/dL POC Glucose (mg/dL) 117 H (75-99) mg/dL Assessment and Plan Plan: 1 Acute hypoxemic and hypercapnic respiratory failure secondary to COPD exacerbation, with recent admission on January 17, and discharge on January 25. Patient is clinically improving. The patient is currently on oxygen at 6 L per minute nasal cannula. His demented on chronic immunosuppression with CellCept on long-term basis that the patient has history of lupus. 2 Current ongoing tobacco use with nicotine addiction. 3 History of CAD. 4 History of CHF. 5 History of CVA/TIA. 6 History of gastroesophageal reflux disease. 7 History of hyperlipidemia. 8 History of hypertension. 9 Prior history of myocardial infarction. 10 History of osteoarthritis. 11 History of seizure disorder. 12 History of sleep apnea syndrome, maintained on CPAP. 13 CAD, previous stent placement. 14 lupus Plan Drop-down IV Solu-Medrol to 40 mg every 8 hours check pro-calcitonin level repeat x-ray in the morning BiPAP overnight regarding his obstructive sleep apnea clinically improving we'll continue to follow
--- NOTE | 2021-01-29 16:27 | P.PN ---
Subjective Progress Note Date: 01/29/21 This is 60-year-old gentleman follows with Dr. Teran in the office with past medical history of CAD-myocardial infarction, cardiac stents, seizure disorder, CVA with residual left arm weakness SLE, COPD on 3 L home O2, nicotine dependence-2 packs per day, discharged yesterday with diagnosis of acute on chronic hypoxic hypercapnic respiratory failure secondary to bilateral pneumonia, acute CHF exacerbation and multiple other medical issues brought to the ER via EMS with complaints of increased shortness of breath, hypertensive. Patient reports he smoked 3 cigarettes once he arrived home. Reports near syncope while sitting on the toilet attempting to have a, BM. EMS reports patient requesting BiPAP, hypertensive with systolic blood pressure greater than 200, diaphoretic, cyanotic with a pulse ox in the 70s. He received nitroglycerin. On arrival O2 sats in the 90s, on CPAP,90L with blood pressure 129/91. Deny chest pain, palpitations. Currently 94% on 60% FiO2 BiPAP, mild tachycardia, borderline hypotension, systolic blood pressure high 90s. Afebrile, and ABC 11.9, hemoglobin 16.2, platelets 174, sodium 141, potassium 4.3, CO2 34, BUN 14, creatinine 0.49, glucose 182, magnesium 2, alk phos 170, troponin 0.0-2, BNP 2320. Influenza A/B,Coronavirus not detected. Chest x-ray reported little change since previous with increased interstitial densities in the mid to lower lungs bilaterally with scattered bibasilar atelectasis versus infiltrates or edema. EKG reported sinus rhythm with frequent PVCs, anterior infarct, age undetermined. 01/29/2021 Maintained on Levaquin, steroids, nebulized bronchodilators. Continues on BiPAP at night, 6 L high flow nasal cannula during the day, currently maintaining O2 sats in the high 90s. Denies chest pain, palpitations. Afebrile. Objective - Vital Signs Vital signs: Vital Signs Temp 98.4 F 01/29/21 08:55 Pulse 72 01/29/21 09:14 Resp 18 01/29/21 08:55 BP 142/89 01/29/21 08:55 Pulse Ox 93 L 01/29/21 08:55 Intake & Output 01/28/21 01/29/21 01/29/21 18:59 06:59 18:59 Intake Total 740 240 Balance 740 240 Weight 102.5 kg Intake: IV 20 0.9 20 Oral 720 240 Other: Voiding Method Urinal Toilet # Voids 2 - Exam - Exam General: Obese, alert and oriented times 3, sitting up in bed, no acute distress Neck: [Supple, unable to assess JVD, short neck Cardiac: Heart regular in rate and rhythm. No S3. No S4. No clicks, rubs. No murmur. Lungs: Minimal air exchange, bilateral bases diminished.scattered rhonchi ,Fine expiratory wheezing Abdomen: [Soft , distended, nontender ,No mass. No organomegaly. Bowel sounds presnt. Extremities: No edema no cyanosis no claudication normal pulses Skin: Warm and dry, No rash. Neurologic: No lateralizing deficits. CN II - XII grossly intact; chronic residual left arm weakness. - Labs CBC & Chem 7: 01/28/21 07:13 01/29/21 07:45 Labs: Abnormal Lab Results - Last 24 Hours (Table) 01/28/21 01/28/21 01/28/21 Range/Units 11:40 16:35 20:01 Carbon Dioxide (22-30) mmol/L Creatinine (0.66-1.25) mg/dL Glucose (74-99) mg/dL POC Glucose (mg/dL) 111 H 149 H 121 H (75-99) mg/dL 01/29/21 01/29/21 Range/Units 06:26 07:45 Carbon Dioxide 40 H (22-30) mmol/L Creatinine 0.58 L (0.66-1.25) mg/dL Glucose 113 H (74-99) mg/dL POC Glucose (mg/dL) 117 H (75-99) mg/dL Assessment and Plan Assessment: Acute on chronic hypoxic, hypercapnic respiratory failure secondary to acute COPD exacerbation, in a patient discharged yesterday, with Acute on chronic hypoxic, hypercapnic respiratory failure, secondary to acute bilateral pneumonia, possibly aspiration, possible community acquired, wears 3 L nasal cannula at home. Patient proceeded to smoke once home yesterday New prominent bilateral hilar lymph nodes, prominent subcarinal 2.5 x 1.1 cm l ymph node Acute metabolic encephalopathy secondary to the above Lupus, on immunosuppressants Chronic interstitial lung disease Ongoing Nicotine dependence Recurrent falls, denies alcohol use Seizure disorder, Dilantin level subtherapeutic on admission Gastroesophageal reflux disease Chronic renal failure, stage I Anemia of chronic disease History of CVA with residual left arm weakness Hypertension Chronic Systolic CHF, Ischemic heart disease CAD, history of [facility] cardiac stent Obstructive sleep apnea Morbid Obesity, BMI 33.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 BIPAP/ Aggressive pulmonary toileting, nebulized bronchodilators, steroids, antibiotics. Steroid tapering as per pulmonary. Smoking cessation reinforced. Prognosis guarded in a patient with multiple complex medical issues. The impression and plan of care has been dictated as directed. : I performed a history and examination of this patient, discussed the same with the dictator. I agree with the dictator's note ,documented as a scribe. Any additional findings or plans will be noted.
[2021-01-29] MEDS: MONTELUKAST 10 MG TAB PO SCH (16:35)
[2021-01-29] MEDS: methylPREDNISolone SOD SUCCI 40 MG/ML 1 ML VIAL IV SCH ×2 (16:36→23:25)
[2021-01-29 16:49] LABS: Glucose,Whole Blood 123 mg/dL (75-99)
[2021-01-29 20:28] LABS: Glucose,Whole Blood 146 mg/dL (75-99)
[2021-01-30 06:08] LABS: Glucose,Whole Blood 116 mg/dL (75-99)
[2021-01-30] MEDS: INSULIN ASPART (NovoLOG) 100 UNIT/ML VIAL SQ SCH ×2 (06:08→12:16)
[2021-01-30] MEDS: metFORMIN 500 MG TAB PO SCH (06:26)
[2021-01-30] MEDS: HYDROcodone/APAP 7.5-325MG 1 EACH TAB PO PRN (06:27)
[2021-01-30 07:55] LABS: Basophils % (A) 1 %; Eosinophils # (A) 0.1 k/uL (0-0.7); Eosinophils % (A) 1 %; HCT 49.6 % (39.0-53.0); HGB 15.6 gm/dL (13.0-17.5); Hypochromasia Slight; Lymphocytes # (A) 1.9 k/uL (1.0-4.8); Lymphocytes % (A) 23 %; MCH 32.1 pg (25.0-35.0); MCHC 31.4 g/dL (31.0-37.0); MCV 102.1 fL (80.0-100.0); Macrocytosis Slight; Monocytes # (A) 0.4 k/uL (0-1.0); Monocytes % (A) 4 %; Neutrophils # (A) 5.6 k/uL (1.3-7.7); Neutrophils % (A) 70 %; Platelet Count 195 k/uL (150-450); RBC 4.86 m/uL (4.30-5.90); RDW 14.6 % (11.5-15.5)
[2021-01-30] MEDS: LEVOFLOXACIN 750 MG TAB PO SCH (08:12)
[2021-01-30] MEDS: METOPROLOL TARTRATE 25 MG TAB PO SCH (08:12)
[2021-01-30] MEDS: LORATADINE 10 MG TAB PO SCH (08:12)
[2021-01-30] MEDS: MAGNESIUM OXIDE 400 MG TAB PO SCH (08:12)
[2021-01-30] MEDS: ISOSORBIDE MONONITRATE ER 30 MG TAB.ER.24H PO SCH (08:12)
[2021-01-30] MEDS: CLOPIDOGREL 75 MG TAB PO SCH (08:12)
[2021-01-30] MEDS: FAMOTIDINE 20 MG TAB PO SCH (08:13)
[2021-01-30] MEDS: methylPREDNISolone SOD SUCCI 40 MG/ML 1 ML VIAL IV SCH (08:13)
[2021-01-30] MEDS: FUROSEMIDE 40 MG TAB PO SCH (08:13)
[2021-01-30] MEDS: ATORVASTATIN 20 MG TAB PO SCH (08:13)
[2021-01-30] MEDS: HEPARIN SODIUM,PORCINE/PF 5,000 UNIT/0.5 ML SYRINGE SQ SCH (08:13)
[2021-01-30] MEDS: allopurinoL 100 MG TAB PO SCH (08:13)
[2021-01-30] MEDS: ASPIRIN 325 MG TAB PO SCH (08:13)
--- NOTE | 2021-01-30 08:17 | XR ---
EXAMINATION TYPE: XR chest 1V portable DATE OF EXAM: 01/30/2021 COMPARISON: 01/26/2021 INDICATION: Dyspnea TECHNIQUE: Single frontal view of the chest is obtained. FINDINGS: The heart size is mildly prominent. The pulmonary vasculature is normal. There may be some elevation left diaphragm. Left basilar change may be present. Correlate for atelect asis. Mild changes at the right base. Minimal right pleural fluid may be present. IMPRESSION: 1. Mild cardiomegaly. 2. Bibasilar infiltrates. Correlate for subsegmental atelectasis. Findings are improved from comparis on.
[2021-01-30 08:19] LABS: African American GFR (CKD) >90 (>60 ml/min/1.73 sqM); Anion Gap 5 mmol/L; Blood Urea Nitrogen 14 mg/dL (9-20); Calcium 9.4 mg/dL (8.4-10.2); Carbon Dioxide 38 mmol/L (22-30); Chloride 98 mmol/L (98-107); Glucose 106 mg/dL (74-99); Non-African American GFR(CKD) >90 (>60 ml/min/1.73 sqM); Potassium 4.2 mmol/L (3.5-5.1); Sodium 141 mmol/L (137-145)
[2021-01-30] MEDS: PHENYTOIN SODIUM EXTENDED 100 MG CAP PO SCH (08:19)
[2021-01-30] MEDS: NICOTINE 14MG/24HR PATCH TRANSDERM SCH (08:20)
[2021-01-30] MEDS: MULTIVITAMINS, THERA 1 EACH TAB PO SCH (08:20)
[2021-01-30] MEDS: PARoxetine 20 MG TAB PO SCH (08:20)
[2021-01-30] MEDS: PANTOPRAZOLE 40 MG/10 ML VIAL IVP SCH (08:20)
[2021-01-30] MEDS: FORMOTEROL FUMARATE 20 MCG/2 ML NEBU INHALATION SCH (08:30)
[2021-01-30] MEDS: BUDESONIDE 1 MG/2 ML NEBU INHALATION SCH (08:30)
[2021-01-30] MEDS: IPRATROPIUM-ALBUTEROL 3 ML NEB INHALATION SCH ×2 (08:30→12:08)
[2021-01-30 11:52] VITALS: BP 118/66; TEMP 98.6
[2021-01-30] MEDS: CHOLESTYRAMINE (WITH SUGAR) 4 GM PACKET PO SCH (11:53)
[2021-01-30 12:11] VITALS: RESP 18
[2021-01-30 12:14] LABS: Glucose,Whole Blood 121 mg/dL (75-99)
[2021-01-30 12:20] VITALS: PULSE 66
--- NOTE | 2021-01-30 13:13 | P.PN ---
Subjective Progress Note Date: 01/30/21 On 01/30/2021, seeing this patient for a follow-up. Feeling well per Lesh short of breath. Was using BiPAP overnight and the patient is very much interested in pursuing the diagnosis sleep breathing disorder and possible use of CPAP or BiPAP on outpatient basis. Note that he was Hospital as for an acute COPD exacerbation. He has chronic hypoxic respiratory failure secondary to COPD and the patient has been maintained on a combination of Spiriva, theophylline and albuterol nebulized treatments around the clock. He is also oxygen dependent. Currently is feeling well. He is currently on oxygen 2 L nasal cannula with a pulse ox of 94%. Hemodynamically stable. He has been adequately diuresed with Lasix 80 mg by mouth twice a day. He is also on oral Levaquin 750 mg on a daily basis. He remains on IV Solu-Medrol and the dose was tapered down to 40 mg IV every 12 hours. No altered mentation. No signs of any CO2 narcosis. He is chronically immunosuppressed and the patient has been taking CellCept as the patient has history of SLE. Objective - Vital Signs Vital signs: Vital Signs Temp 98.6 F 01/30/21 11:52 Pulse 66 01/30/21 12:20 Resp 18 01/30/21 12:20 BP 118/66 01/30/21 11:52 Pulse Ox 94 L 01/30/21 11:52 Intake & Output 01/29/21 01/30/21 01/30/21 18:59 06:59 18:59 Intake Total 1040 600 120 Output Total 600 Balance 1040 0 120 Weight 101.5 kg Intake: Oral 1040 600 120 Output: Urine 600 Other: Voiding Method Toilet Toilet # Voids 2 - Exam Patient is currently calm and comfortable on oxygen 3 L his per minute nasal cannula and he also has a BiPAP at the bedside. BMI 33 Head exam was generally normal. There was no scleral icterus or corneal arcus. Mucous membranes were moist. Neck was supple and without jugular venous distension, thyromegaly, or carotid bruits. Carotids were easily palpable bilaterally. There was no adenopathy. Lungs sounds are diminished and the patient has scattered expiratory wheezes throughout the lung his bilaterally Cardiac exam revealed the PMI to be normally situated and sized. The rhythm was regular and no extrasystoles were noted during several minutes of auscultation. The first and second heart sounds were normal and physiologic splitting of the second heart sound was noted. There were no murmurs, rubs, clicks, or gallops. Abdominal exam revealed normal bowel sounds. The abdomen was soft, non-tender, and without masses, organomegaly, or appreciable enlargement of the abdominal aorta. Examination of the extremities revealed easily palpable radial, femoral and pedal pulses. There was no cyanosis, clubbing or edema. Examination of the skin revealed no evidence of significant rashes, suspicious appearing nevi or other concerning lesions. Neurologically, the patient is awake and alert and the patient does not have any focal neurological deficit. Cranial nerves are essentially intact. - Labs CBC & Chem 7: 01/30/21 06:59 01/30/21 06:59 Labs: Abnormal Lab Results - Last 24 Hours (Table) 01/29/21 01/29/21 01/30/21 Range/Units 16:47 20:27 06:07 MCV (80.0-100.0) fL Carbon Dioxide (22-30) mmol/L Glucose (74-99) mg/dL POC Glucose (mg/dL) 123 H 146 H 116 H (75-99) mg/dL 01/30/21 01/30/21 01/30/21 Range/Units 06:59 06:59 12:12 MCV 102.1 H (80.0-100.0) fL Carbon Dioxide 38 H (22-30) mmol/L Glucose 106 H (74-99) mg/dL POC Glucose (mg/dL) 121 H (75-99) mg/dL Microbiology - Last 24 Hours (Table) 01/29/21 20:10 Gram Stain - Final Sputum Sputum Culture - Final Assessment and Plan Plan: 1 Acute hypoxemic and hypercapnic respiratory failure secondary to COPD exacerbation, with recent admission on January 17, and discharge on January 25. Patient is clinically improving. The patient is currently on oxygen at 3 L per minute nasal cannula. His demented on chronic immunosuppression with CellCept on long-term basis that the patient has history of lupus. Clinically much improved. No signs of any CO2 narcosis. Oxygenation has improved and the patient is back to his baseline oxygen requirement which is 3 L through nasal ca nnula. No chest pain. Possible obstructive sleep apnea and this needs to be worked up on outpatient basis. 2 Current ongoing tobacco use with nicotine addiction. 3 History of CAD. 4 History of CHF. 5 History of CVA/TIA. 6 History of gastroesophageal reflux disease. 7 History of hyperlipidemia. 8 History of hypertension. 9 Prior history of myocardial infarction. 10 History of osteoarthritis. 11 History of seizure disorder. 12 History of sleep apnea syndrome, maintained on CPAP. 13 CAD, previous stent placement. 14 lupus Plan This continued IV Solu Medrol and switch this patient a prednisone burst taper The pro-calcitonin level is low at 0.04 and antibiotics can be discontinued BiPAP overnight regarding his obstructive sleep apnea clinically improving Outpatient follow-up for a COPD evaluation in addition to sleep apnea evaluation by polysomnography and possible CPAP/BiPAP treatment on outpatient basis Home medications include Spiriva maintenance, theophylline maintenance and a prednisone burst taper in addition to prednisone about treatments around the clock. Oxygen therapy at 3 L per minute nasal cannula and the patient has a on nebulizer and home oxygen concentrator. we'll continue to follow
--- NOTE | 2021-01-30 14:08 | P.DS ---
Providers Date of admission: 01/26/21 04:45 Expected date of discharge: 01/30/21 Attending physician: Damir Teran Consults: 01/26/21 04:44 Consult Physician Routine Consulting Provider: Gerson Chapman Reason/Comments: Dyspnea. COPD exacerbation. Do you want consulting provider notified?: Yes Primary care physician: Damir Teran Hospital Course: Final Diagnoses: Acute on chronic hypoxic, hypercapnic respiratory failure secondary to acute COPD exacerbation, in a patient discharged yesterday, with Acute on chronic hypoxic, hypercapnic respiratory failure, secondary to acute bilateral pneumonia, possibly aspiration, possible community acquired, wears 3 L nasal cannula at home. Patient proceeded to smoke once home yesterday. New prominent bilateral hilar lymph nodes, prominent subcarinal 2.5 x 1.1 cm lymph node Acute metabolic encephalopathy secondary to the above Lupus, on immunosuppressants Chronic interstitial lung disease Ongoing Nicotine dependence Recurrent falls, denies alcohol use Seizure disorder, Dilantin level subtherapeutic on admission Gastroesophageal reflux disease Chronic renal failure, stage I Anemia of chronic disease History of CVA with residual left arm weakness Hypertension Chronic Systolic CHF, Ischemic heart disease CAD, history of KS cardiac stent Obstructive sleep apnea Morbid Obesity, BMI 33.8 halfway use of opiate analgesia Hospital course:This is 60-year-old gentleman follows with Dr. Teran in the office with past medical history of CAD-myocardial infarction, cardiac stents, seizure disorder, CVA with residual left arm weakness SLE, COPD on 3 L home O2, nicotine dependence-2 packs per day, discharged yesterday with diagnosis of acute on chronic hypoxic hypercapnic respiratory failure secondary to bilateral pneumonia, acute CHF exacerbation and multiple other medical issues brought to the ER via EMS with complaints of increased shortness of breath, hypertensive. Patient reports he smoked 3 cigarettes once he arrived home. Reports near syncope while sitting on the toilet attempting to have a, BM. EMS reports patient requesting BiPAP, hypertensive with systolic blood pressure greater than 200, diaphoretic, cyanotic with a pulse ox in the 70s. He received nitroglycerin. On arrival O2 sats in the 90s, on CPAP,90L with blood pressure 129/91. Deny chest pain, palpitations. Currently 94% on 60% FiO2 BiPAP, mild tachycardia, borderline hypotension, systolic blood pressure high 90s. Afebrile, and ABC 11.9, hemoglobin 16.2, platelets 174, sodium 141, potassium 4.3, CO2 34, BUN 14, creatinine 0.49, glucose 182, magnesium 2, alk phos 170, troponin 0.0-2, BNP 2320. Influenza A/B,Coronavirus not detected. Chest x-ray reported little change since previous with increased interstitial densities in the mid to lower lungs bilaterally with scattered bibasilar atelectasis versus infiltrates or edema. EKG reported sinus rhythm with frequent PVCs, anterior infarct, age undetermined. 01/29/2021 Maintained on Levaquin, steroids, nebulized bronchodilators. Continues on BiPAP at night, 6 L high flow nasal cannula during the day, currently maintaining O2 sats in the high 90s. Denies chest pain, palpitations. Afebrile. Significant clinical improvement. Weaned down to 3 L nasal cannula maintaining O2 sats of 94%. Denies chest pain, palpitations or increasing shortness of breath. Patient will need outpatient sleep study as soon as it can be arranged. Smoking cessation reinforced. Patient will be discharged home today in a stable condition with guarded prognosis pending final DC recommendations and clearance from pulmonary. The impression and plan of care has been dictated as directed. : I performed a history and examination of this patient, discussed the same with the dictator. I agree with the dictator's note ,documented as a scribe. Any additional findings or plans will be noted. Patient Condition at Discharge: Stable Plan - Discharge Summary Discharge Rx Participant: No New Discharge Prescriptions: New predniSONE 10 mg PO DIRECTED 16 Days #40 tab Nicotine 14Mg/24Hr Patch [Habitrol] 1 patch TRANSDERM DAILY patch Continue Metoprolol Tartrate [Lopressor] 25 mg PO BID #60 tab PARoxetine [Paxil] 20 mg PO DAILY Loratadine [Claritin] 10 mg PO DAILY Phenytoin Sodium Extended [Dilantin] 200 mg PO BID Clopidogrel Bisulfate [Clopidogrel] 75 mg PO DAILY Magnesium Oxide [Mag-Ox] 400 mg PO DAILY #30 tablet rOPINIRole HCL [Requip] 1 mg PO BID Theophylline Anhydrous [Theophylline] 400 mg PO DAILY Mycophenolate Mofetil [Cellcept] 1,000 mg PO DAILY allopurinoL [Zyloprim] 100 mg PO DAILY Ergocalciferol (Vitamin D2) [Vitamin D2] 50,000 unit PO Q14D Montelukast [Singulair] 10 mg PO DAILY@1500 Nitroglycerin Sl Tabs [Nitrostat] 0.4 mg SUBLINGUAL Q5M PRN PRN Reason: Chest Pain Potassium Chloride [Klor-Con 20] 20 meq PO Q48H Potassium Chloride [Klor-Con 20] 40 meq PO Q48H Isosorbide Mononitrate ER [Imdur] 30 mg PO DAILY #30 tab mycophenolate mofetiL [Cellcept] 500 mg PO HS HYDROcodone/APAP 7.5-325MG [[place] 7.5-325] 1 tab PO Q6H PRN PRN Reason: Pain Famotidine 20 mg PO DAILY modafiniL [Provigil] 200 mg PO DAILY Multivitamins, Thera [Multivitamin (formulary)] 1 tab PO DAILY Aspirin 325 mg PO DAILY Tiotropium [place] [Spiriva] 1 cap INHALATION RT-DAILY Fluticasone Propionate [Flovent Hfa 220 mcg] 2 puff INHALATION RT-BID Atorvastatin [Lipitor] 20 mg PO DAILY Albuterol Sulfate [Proair Hfa] 2 puff INHALATION RT-Q6H PRN PRN Reason: Shortness Of Breath Cholestyramine (with Sugar) [Cholestyramine Packet] 4 gm PO DAILY predniSONE [Deltasone] 40 mg PO DAILY #30 tab Changed Furosemide [Lasix] 80 mg PO BID #1 tab metFORMIN HCL [metFORMIN HCL ER] 750 mg PO BID #0 Discontinued hydrOXYzine HCL [Atarax] 25 mg PO Q8H PRN PRN Reason: Anxiety Pregabalin [Lyrica] 200 mg PO TID Discharge Medication List Metoprolol Tartrate [Lopressor] 25 mg PO BID #60 tab 09/18/15 [Rx] Loratadine [Claritin] 10 mg PO DAILY 05/21/16 [History] PARoxetine [Paxil] 20 mg PO DAILY 05/21/16 [History] Phenytoin Sodium Extended [Dilantin] 200 mg PO BID 05/21/16 [History] Clopidogrel Bisulfate [Clopidogrel] 75 mg PO DAILY 05/22/16 [History] Magnesium Oxide [Mag-Ox] 400 mg PO DAILY #30 tablet 07/11/16 [Rx] rOPINIRole HCL [Requip] 1 mg PO BID 08/30/16 [History] Mycophenolate Mofetil [Cellcept] 1,000 mg PO DAILY 10/03/17 [History] Theophylline Anhydrous [Theophylline] 400 mg PO DAILY 10/03/17 [History] Ergocalciferol (Vitamin D2) [Vitamin D2] 50,000 unit PO Q14D 02/04/18 [History] Montelukast [Singulair] 10 mg PO DAILY@1500 02/04/18 [History] Nitroglycerin Sl Tabs [Nitrostat] 0.4 mg SUBLINGUAL Q5M PRN 02/04/18 [History] Potassium Chloride [Klor-Con 20] 20 meq PO Q48H 02/04/18 [History] Potassium Chloride [Klor-Con 20] 40 meq PO Q48H 02/04/18 [History] allopurinoL [Zyloprim] 100 mg PO DAILY 02/04/18 [History] Isosorbide Mononitrate ER [Imdur] 30 mg PO DAILY #30 tab 02/05/18 [Rx] mycophenolate mofetiL [Cellcept] 500 mg PO HS 08/05/19 [History] Aspirin 325 mg PO DAILY 05/12/20 [History] Famotidine 20 mg PO DAILY 05/12/20 [History] HYDROcodone/APAP 7.5-325MG [[place] 7.5-325] 1 tab PO Q6H PRN 05/12/20 [History] Multivitamins, Thera [Multivitamin (formulary)] 1 tab PO DAILY 05/12/20 [History] modafiniL [Provigil] 200 mg PO DAILY 05/12/20 [History] Albuterol Sulfate [Proair Hfa] 2 puff INHALATION RT-Q6H PRN 11/15/20 [History] Atorvastatin [Lipitor] 20 mg PO DAILY 11/15/20 [History] Fluticasone Propionate [Flovent Hfa 220 mcg] 2 puff INHALATION RT-BID 11/15/20 [History] Tiotropium [place] [Spiriva] 1 cap INHALATION RT-DAILY 11/15/20 [History] Cholestyramine (with Sugar) [Cholestyramine Packet] 4 gm PO DAILY 12/13/20 [History] predniSONE [Deltasone] 40 mg PO DAILY #30 tab 01/25/21 [Rx] Furosemide [Lasix] 80 mg PO BID #1 tab 01/30/21 [Rx] Nicotine 14Mg/24Hr Patch [Habitrol] 1 patch TRANSDERM DAILY patch 01/30/21 [Rx] metFORMIN HCL [metFORMIN HCL ER] 750 mg PO BID #0 01/30/21 [Rx] predniSONE 10 mg PO DIRECTED 16 Days #40 tab 01/30/21 [Rx] Follow up Appointment(s)/Referral(s): Damir Teran MD [Primary Care Provider] - 3 Days Darian Bone MD [STAFF PHYSICIAN] - 1 Week Activity/Diet/Wound Care/Special Instructions: Pending final DC recommendations, clearance from pulmonary .Outpatient sleep study YLNNE. 3 L nasal cannula, patient has already at home Resume maintenance prednisone after completing prednisone taper. Pro-calcitonin level low, 0.04, antibiotics discontinued
== END 2021-01-30 15:18 | disposition home or self-care (01) | DRG 190 ==
LOC: EC 01:04 → 3SCARD 04:45
PROVIDERS: ADMIT Family Medicine; ATTEND Family Medicine
DX: J44.1 Chronic obstructive pulmonary disease with (acute) exacerbation (principal); J69.0 Pneumonitis due to inhalation of food and vomit; J96.21 Acute and chronic respiratory failure with hypoxia; J96.22 Acute and chronic respiratory failure with hypercapnia; G92 Toxic encephalopathy; I50.23 Acute on chronic systolic (congestive) heart failure; J98.11 Atelectasis; D84.821 Immunodeficiency due to drugs; I13.0 Hypertensive heart and chronic kidney disease with heart failure and stage 1 through stage 4 chronic kidney disease, or unspecified chronic kidney disease; J84.9 Interstitial pulmonary disease, unspecified; F17.210 Nicotine dependence, cigarettes, uncomplicated; K21.9 Gastro-esophageal reflux disease without esophagitis; K72.90 Hepatic failure, unspecified without coma; M19.90 Unspecified osteoarthritis, unspecified site; M32.14 Glomerular disease in systemic lupus erythematosus; N18.1 Chronic kidney disease, stage 1; R29.6 Repeated falls; Z20.822 Contact with and (suspected) exposure to COVID-19; Z68.33 Body mass index [BMI] 33.0-33.9, adult; D63.1 Anemia in chronic kidney disease; E66.01 Morbid (severe) obesity due to excess calories; E78.5 Hyperlipidemia, unspecified; Z71.6 Tobacco abuse counseling; G25.81 Restless legs syndrome; G40.909 Epilepsy, unspecified, not intractable, without status epilepticus; G47.33 Obstructive sleep apnea (adult) (pediatric); Z99.89 Dependence on other enabling machines and devices; G89.29 Other chronic pain; I25.2 Old myocardial infarction; I25.119 Atherosclerotic heart disease of native coronary artery with unspecified angina pectoris; I49.3 Ventricular premature depolarization; K44.9 Diaphragmatic hernia without obstruction or gangrene; I69.334 Monoplegia of upper limb following cerebral infarction affecting left non-dominant side; F32.9 Major depressive disorder, single episode, unspecified; F41.9 Anxiety disorder, unspecified; J44.0 Chronic obstructive pulmonary disease with (acute) lower respiratory infection; Z79.02 Long term (current) use of antithrombotics/antiplatelets; Z79.51 Long term (current) use of inhaled steroids; Z79.52 Long term (current) use of systemic steroids; Z79.82 Long term (current) use of aspirin; Z79.84 Long term (current) use of oral hypoglycemic drugs; Z79.891 Long term (current) use of opiate analgesic; Z79.899 Other long term (current) drug therapy; Z80.1 Family history of malignant neoplasm of trachea, bronchus and lung; Z82.49 Family history of ischemic heart disease and other diseases of the circulatory system; Z82.5 Family history of asthma and other chronic lower respiratory diseases; Z87.11 Personal history of peptic ulcer disease; Z95.5 Presence of coronary angioplasty implant and graft; Z99.81 Dependence on supplemental oxygen; Z86.010 Personal history of colon polyps; Z91.81 History of falling; Z87.01 Personal history of pneumonia (recurrent)
CPT/HCPCS: 36415; 71045; 80048; 80053; 83605; 83735; 83880; 84132; 84145; 84484; 85025; 85610; 85730; 87070; 87205; 87636; 93005; 93306; 94640; 94660; 94760; 99285

== ENCOUNTER → 2021-05-16 | Outpatient (CLI) | payer OTHER ==
--- NOTE | 2021-05-16 10:53 | XR ---
EXAMINATION TYPE: XR cervical spine comp DATE OF EXAM: 05/16/2021 COMPARISON: NONE HISTORY: Pain TECHNIQUE: Four views are submitted. FINDINGS: The odontoid is intact. There are no compression deformities. The prevertebral soft tissue structur es are within normal limits. Calcifications in the soft tissues of the neck. There is fusion of the C3 and C4 vertebral segments with diffuse osteopenia and multilevel hypertrophic and degenerative homer nges. Multilevel facet arthropathy. Multilevel foraminal encroachment bilaterally at all levels. IMPRESSION: 1. There is apparent fusion of the C3 and C4 vertebral segments with multilevel degenerative disc dis ease, diffuse osteopenia and foraminal encroachment. Recommend follow-up MRI..
== END | disposition home or self-care (01) ==
LOC: RADXRMAIN 10:22
PROVIDERS: ATTEND Family Medicine
DX: M50.31 Other cervical disc degeneration, high cervical region (principal)
CPT/HCPCS: 72050

== ENCOUNTER 2021-08-07 12:53 | Observation (INO) | payer OTHER ==
[2021-08-07 13:24] VITALS: TEMP 97.4
[2021-08-07 14:03] LABS: ALT 18 U/L (4-49); AST 23 U/L (17-59); African American GFR (CKD) >90 (>60 ml/min/1.73 sqM); Alkaline Phosphatase 145 U/L (38-126); Anion Gap 5 mmol/L; Blood Urea Nitrogen 11 mg/dL (9-20); Calcium 9.5 mg/dL (8.4-10.2); Carbon Dioxide 29 mmol/L (22-30); Chloride 107 mmol/L (98-107); Glucose 98 mg/dL (74-99); Magnesium 2.1 mg/dL (1.6-2.3); Non-African American GFR(CKD) >90 (>60 ml/min/1.73 sqM); Potassium 4.4 mmol/L (3.5-5.1); Sodium 141 mmol/L (137-145); Total Bilirubin 0.6 mg/dL (0.2-1.3); Total Protein 6.7 g/dL (6.3-8.2)
--- NOTE | 2021-08-07 14:07 | ED ---
General Adult HPI - General Chief complaint: Chest Pain Stated complaint: chest pain Time Seen by Provider: 08/07/21 13:44 Source: patient Mode of arrival: wheelchair Limitations: no limitations - History of Present Illness Initial comments: Dictation was produced using [employer] dictation software. please excuse any grammatical, word or spelling errors. Chief Complaint: 61-year-old male presents to the emergency department for chest pain History of Present Illness: Patient is 61-year-old male who has past medical history of coronary artery disease. He is status post multiple stents he states that he's been having burning across his chest for the last several days. States that his symptoms are similar to symptoms she said when he has been diagnosed with myocardial infarction. He states the pain does radiate down his left upper extremity. When asked if he had diaphoresis associated with a history that he always sweats. No associated nausea. Denies any shortness of breath. The ROS documented in this emergency department record has been reviewed and confirmed by me. Those systems with pertinent positive or negative responses have been documented in the HPI. All other systems are other negative and/or noncontributory. PHYSICAL EXAM: General Impression: Alert and oriented x3, not in acute distress HEENT: Normocephalic atraumatic, extra-ocular movements intact, pupils equal and reactive to light bilaterally, mucous membranes moist. Cardiovascular: Heart regular rate and rhythm Chest: Able to complete full sentences, no retractions, no tachypnea Abdomen: abdomen soft, non-tender, non-distended, no organomegaly Musculoskeletal: Pulses present and equal in all extremities, no peripheral edema Motor: no focal deficits noted Neurological: CN II-XII grossly intact, no focal motor or sensory deficits noted Skin: Intact with no visualized rashes Psych: Normal affect and mood ED course: 61-year-old well-appearing male presents emergency department for chest pain. Vital signs upon arrival are within acceptable limits. Patient wears home oxygen. His 94% on 3 L is a cannula. Laboratory evaluation obtained. CBC, coag panel, metabolic panel is unremarkable. First troponin is negative. Patient reevaluated at bedside at 3:05 PM found to be stable medical condition. Given patient's risk factors he w ill be admitted to observation for serial troponins and cardiac consultation. Case discussed with Dr. Teran who is willing to accept patients care. EKG interpretation: Ventricular rate 65, sinus rhythm, WV interval 182, QRS 106, QTC 455. No WV prolongation, no QTC prolongation, no ST or T-wave changes noted. EKG compared to 01/16/2021 showing no changes. Overall, this EKG is unremarkable - Related Data Home Medications Medication Instructions Recorded Confirmed Loratadine [Claritin] 10 mg PO DAILY 05/21/16 01/26/21 PARoxetine [Paxil] 20 mg PO DAILY 05/21/16 01/26/21 Phenytoin Sodium Extended 200 mg PO BID 05/21/16 01/26/21 [Dilantin] Clopidogrel Bisulfate [Clopidogrel] 75 mg PO DAILY 05/22/16 01/26/21 rOPINIRole HCL [Requip] 1 mg PO BID 08/30/16 01/26/21 Mycophenolate Mofetil [Cellcept] 1,000 mg PO DAILY 10/03/17 01/26/21 Theophylline Anhydrous 400 mg PO DAILY 10/03/17 01/26/21 [Theophylline] Ergocalciferol (Vitamin D2) 50,000 unit PO Q14D 02/04/18 01/26/21 [Vitamin D2] Montelukast [Singulair] 10 mg PO DAILY@1500 02/04/18 01/26/21 Nitroglycerin Sl Tabs [Nitrostat] 0.4 mg SUBLINGUAL Q5M PRN 02/04/18 01/26/21 Potassium Chloride [Klor-Con 20] 20 meq PO Q48H 02/04/18 01/26/21 Potassium Chloride [Klor-Con 20] 40 meq PO Q48H 02/04/18 01/26/21 allopurinoL [Zyloprim] 100 mg PO DAILY 02/04/18 01/26/21 mycophenolate mofetiL [Cellcept] 500 mg PO HS 08/05/19 01/26/21 Aspirin 325 mg PO DAILY 05/12/20 01/26/21 Famotidine 20 mg PO DAILY 05/12/20 01/26/21 HYDROcodone/APAP 7.5-325MG [[place] 1 tab PO Q6H PRN 05/12/20 01/26/21 7.5-325] Multivitamins, Thera [Multivitamin 1 tab PO DAILY 05/12/20 01/26/21 (formulary)] modafiniL [Provigil] 200 mg PO DAILY 05/12/20 01/26/21 Albuterol Sulfate [Proair Hfa] 2 puff INHALATION RT-Q6H PRN 11/15/20 01/26/21 Atorvastatin [Lipitor] 20 mg PO DAILY 11/15/20 01/26/21 Fluticasone Propionate [Flovent 2 puff INHALATION RT-BID 11/15/20 01/26/21 Hfa 220 mcg] Tiotropium David [Spiriva] 1 cap INHALATION RT-DAILY 11/15/20 01/26/21 Cholestyramine (with Sugar) 4 gm PO DAILY 12/13/20 01/26/21 [Cholestyramine Packet] Previous Rx's Medication Instructions Recorded Metoprolol Tartrate [Lopressor] 25 mg PO BID #60 tab 09/18/15 Magnesium Oxide [Mag-Ox] 400 mg PO DAILY #30 tablet 07/11/16 Isosorbide Mononitrate ER [Imdur] 30 mg PO DAILY #30 tab 02/05/18 predniSONE [Deltasone] 40 mg PO DAILY #30 tab 01/25/21 Furosemide [Lasix] 80 mg PO BID #1 tab 01/30/21 Nicotine 14Mg/24Hr Patch [Habitrol] 1 patch TRANSDERM DAILY patch 01/30/21 metFORMIN HCL [Glucophage XR] 750 mg PO BID #0 01/30/21 predniSONE 10 mg PO DIRECTED 16 Days #40 01/30/21 tab Allergies Allergy/AdvReac Type Severity Reaction Status Date / Time Penicillins Allergy Severe Swelling Verified 01/26/21 06:44 Iodinated Contrast Media Allergy Swelling Verified 01/26/21 06:44 [Iodinated Contrast- Oral and IV Dye] iodine Allergy Itching, Verified 01/26/21 06:44 Hives phenobarbital AdvReac Drowsiness Verified 01/26/21 06:44 Review of Systems ROS Statement: Those systems with pertinent positive or pertinent negative responses have been documented in the HPI. ROS Other: All systems not noted in ROS Statement are negative. Past Medical History Past Medical History: Asthma, Coronary Artery Disease (CAD), Chest Pain / Angina, Heart Failure, COPD, CVA/TIA, GERD/Reflux, Hyperlipidemia, Hypertension, Myocardial Infarction (KS), Osteoarthritis (OA), Pneumonia, Renal Disease, Seizure Disorder, Sleep Apnea/CPAP/BIPAP Additional Past Medical History / Comment(s): last seizure - 2015, hiatal hernia, chronic back pain, 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, lupus, continuous oxygen use at 3L, no cpap used, kidney failure with hemodilaysis in the past, 3 KS's, hypoglycemia Last Myocardial Infarction Date:: 2015 History of Any Multi-Drug Resistant Organisms: None Reported Past Surgical History: Cholecystectomy, Heart Catheterization, Heart Catheterization With Stent, Tonsillectomy Additional Past Surgical History / Comment(s): STATES 3 cardiac stents, Past Anesthesia/Blood Transfusion Reactions: No Reported Reaction Additional Past Anesthesia/Blood Transfusion Reaction / Comment(s): blood transfusion-no reaction, unknown family hx per spouse Date of Last Stent Placement:: 2015 Past Psychological History: Anxiety, Depression Smoking Status: Current some day smoker Past Alcohol Use History: None Reported Past Drug Use History: None Reported - Past Family History Father Family Medical History: Myocardial Infarction (KS) Additional Family Medical History / Comment(s): Father had a KS at the age of 56yrs. Mother Family Medical History: Asthma, Cancer, COPD Additional Family Medical History / Comment(s): Mother had lung cancer. General Exam Limitations: no limitations Course Vital Signs 08/07/21 13:19 Temperature 97.4 F L Pulse Rate 66 Respiratory 19 Rate Blood Pressure 115/62 O2 Sat by Pulse 94 L Oximetry Medical Decision Making - Lab Data Result diagrams: 08/07/21 13:33 08/07/21 13:33 Lab Results 08/07/21 08/07/21 08/07/21 Range/Units 13:33 13:33 13:33 WBC 7.9 (3.8-10.6) k/uL RBC 4.88 (4.30-5.90) m/uL Hgb 16.1 (13.0-17.5) gm/dL Hct 47.3 (39.0-53.0) % MCV 97.0 (80.0-100.0) fL MCH 32.9 (25.0-35.0) pg MCHC 34.0 (31.0-37.0) g/dL RDW 14.5 (11.5-15.5) % Plt Count 157 (150-450) k/uL MPV 8.0 Neutrophils % 62 % Lymphocytes % 28 % Monocytes % 5 % Eosinophils % 3 % Basophils % 0 % Neutrophils # 4.9 (1.3-7.7) k/uL Lymphocytes # 2.2 (1.0-4.8) k/uL Monocytes # 0.4 (0-1.0) k/uL Eosinophils # 0.2 (0-0.7) k/uL Basophils # 0.0 (0-0.2) k/uL PT 10.2 (9.0-12.0) sec INR 0.9 (<1.2) APTT 24.4 (22.0-30.0) sec Sodium 141 (137-145) mmol/L Potassium 4.4 (3.5-5.1) mmol/L Chloride 107 (98-107) mmol/L Carbon Dioxide 29 (22-30) mmol/L Anion Gap 5 mmol/L BUN 11 (9-20) mg/dL Creatinine 0.62 L (0.66-1.25) mg/dL Est GFR (CKD-EPI)AfAm >90 (>60 ml/min/1.73 sqM) Est GFR (CKD-EPI)NonAf >90 (>60 ml/min/1.73 sqM) Glucose 98 (74-99) mg/dL Calcium 9.5 (8.4-10.2) mg/dL Magnesium 2.1 (1.6-2.3) mg/dL Total Bilirubin 0.6 (0.2-1.3) mg/dL AST 23 (17-59) U/L ALT 18 (4-49) U/L Alkaline Phosphatase 145 H (38-126) U/L Troponin I (0.000-0.034) ng/mL Total Protein 6.7 (6.3-8.2) g/dL Albumin 4.0 (3.5-5.0) g/dL 08/07/21 Range/Units 13:33 WBC (3.8-10.6) k/uL RBC (4.30-5.90) m/uL Hgb (13.0-17.5) gm/dL Hct (39.0-53.0) % MCV (80.0-100.0) fL MCH (25.0-35.0) pg MCHC (31.0-37.0) g/dL RDW (11.5-15.5) % Plt Count (150-450) k/uL MPV Neutrophils % % Lymphocytes % % Monocytes % % Eosinophils % % Basophils % % Neutrophils # (1.3-7.7) k/uL Lymphocytes # (1.0-4.8) k/uL Monocytes # (0-1.0) k/uL Eosinophils # (0-0.7) k/uL Basophils # (0-0.2) k/uL PT (9.0-12.0) sec INR (<1.2) APTT (22.0-30.0) sec Sodium (137-145) mmol/L Potassium (3.5-5.1) mmol/L Chloride (98-107) mmol/L Carbon Dioxide (22-30) mmol/L Anion Gap mmol/L BUN (9-20) mg/dL Creatinine (0.66-1.25) mg/dL Est GFR (CKD-EPI)AfAm (>60 ml/min/1.73 sqM) Est GFR (CKD-EPI)NonAf (>60 ml/min/1.73 sqM) Glucose (74-99) mg/dL Calcium (8.4-10.2) mg/dL Magnesium (1.6-2.3) mg/dL Total Bilirubin (0.2-1.3) mg/dL AST (17-59) U/L ALT (4-49) U/L Alkaline Phosphatase (38-126) U/L Troponin I <0.012 (0.000-0.034) ng/mL Total Protein (6.3-8.2) g/dL Albumin (3.5-5.0) g/dL Disposition Clinical Impression: Chest pain Disposition: ADMITTED IP TO THIS HOSP Condition: Fair Referrals: Damir Teran MD [Primary Care Provider] - 1-2 days
[2021-08-07 14:10] LABS: Basophils % (A) 0 %; Eosinophils # (A) 0.2 k/uL (0-0.7); Eosinophils % (A) 3 %; HCT 47.3 % (39.0-53.0); HGB 16.1 gm/dL (13.0-17.5); Lymphocytes # (A) 2.2 k/uL (1.0-4.8); Lymphocytes % (A) 28 %; MCH 32.9 pg (25.0-35.0); Monocytes # (A) 0.4 k/uL (0-1.0); Monocytes % (A) 5 %; Neutrophils # (A) 4.9 k/uL (1.3-7.7); Neutrophils % (A) 62 %; Platelet Count 157 k/uL (150-450); RBC 4.88 m/uL (4.30-5.90); RDW 14.5 % (11.5-15.5); WBC 7.9 k/uL (3.8-10.6)
[2021-08-07 14:28] LABS: INR 0.9 (<1.2); Partial Thromboplastin Time 24.4 sec (22.0-30.0); Prothrombin Time 10.2 sec (9.0-12.0)
[2021-08-07] MEDS ORDERED: NITROGLYCERIN SL TABS 0.4 MG TAB SUBLINGUAL PRN (15:05)
[2021-08-07] MEDS ORDERED: ASPIRIN 81 MG PO STA (15:05)
--- NOTE | 2021-08-07 15:13 | XR ---
EXAMINATION TYPE: XR chest 2V DATE OF EXAM: 08/07/2021 COMPARISON: Chest x-ray January 30, 2021 HISTORY: Chest pain today. TECHNIQUE: Frontal and lateral views of the chest are obtained. FINDINGS: There is elevated left hemidiaphragm and chronic parenchymal changes bilaterally in the low er lungs. There is no significant pleural effusion currently. The cardiac silhouette size is mildly enlarged. The osseous structures are intact. IMPRESSION: Cardiomegaly and chronic bibasilar opacities favoring scarring and/or atelectasis.
[2021-08-07 18:57] VITALS: BP 101/64; PULSE 59; RESP 16
[2021-08-08] MEDS ORDERED: ASPIRIN 325 MG TAB PO SCH (09:00)
== END 2021-08-07 19:44 | disposition left against medical advice (07) ==
LOC: EC 12:53 → 6NMEDSUR 15:06
PROVIDERS: ADMIT Family Medicine; ATTEND Family Medicine
DX: R07.9 Chest pain, unspecified (principal); R61 Generalized hyperhidrosis; Z53.29 Procedure and treatment not carried out because of patient's decision for other reasons; I25.10 Atherosclerotic heart disease of native coronary artery without angina pectoris; I25.2 Old myocardial infarction; J44.9 Chronic obstructive pulmonary disease, unspecified; K21.9 Gastro-esophageal reflux disease without esophagitis; E78.5 Hyperlipidemia, unspecified; M19.90 Unspecified osteoarthritis, unspecified site; Z87.01 Personal history of pneumonia (recurrent); G47.30 Sleep apnea, unspecified; G40.909 Epilepsy, unspecified, not intractable, without status epilepticus; G89.29 Other chronic pain; M54.9 Dorsalgia, unspecified; I69.354 Hemiplegia and hemiparesis following cerebral infarction affecting left non-dominant side; I13.0 Hypertensive heart and chronic kidney disease with heart failure and stage 1 through stage 4 chronic kidney disease, or unspecified chronic kidney disease; I50.9 Heart failure, unspecified; E11.649 Type 2 diabetes mellitus with hypoglycemia without coma; E11.22 Type 2 diabetes mellitus with diabetic chronic kidney disease; N18.9 Chronic kidney disease, unspecified; F41.9 Anxiety disorder, unspecified; Z20.822 Contact with and (suspected) exposure to COVID-19; F17.200 Nicotine dependence, unspecified, uncomplicated; Z95.5 Presence of coronary angioplasty implant and graft; Z99.81 Dependence on supplemental oxygen; Z79.899 Other long term (current) drug therapy; Z79.02 Long term (current) use of antithrombotics/antiplatelets; Z79.82 Long term (current) use of aspirin; Z79.51 Long term (current) use of inhaled steroids; Z79.84 Long term (current) use of oral hypoglycemic drugs; Z88.0 Allergy status to penicillin; Z88.8 Allergy status to other drugs, medicaments and biological substances; Z91.048 Other nonmedicinal substance allergy status; Z90.49 Acquired absence of other specified parts of digestive tract; Z82.49 Family history of ischemic heart disease and other diseases of the circulatory system; Z80.1 Family history of malignant neoplasm of trachea, bronchus and lung; Z82.5 Family history of asthma and other chronic lower respiratory diseases
CPT/HCPCS: 99285; 36415; 93005; 80053; 83735; 84484; 85025; 85610; 85730; 87635; 71046; G0378

== ENCOUNTER → 2021-10-11 | Outpatient (CLI) | payer OTHER ==
--- NOTE | 2021-10-11 14:09 | XR ---
EXAMINATION TYPE: XR foot complete bilateral DATE OF EXAM: 10/11/2021 COMPARISON: NONE HISTORY: Pain TECHNIQUE: Three views of each foot are submitted. FINDINGS: The osseous structures are intact. There is bilateral arthropathy of all DIP joints. Moderate to sabra re first MTP joint arthropathy with hypertrophic change. Diffuse osteopenia. No acute fracture. No er osive change. No dislocation. Within the subcutaneous soft tissues adjacent to the tibia there is a linear metallic foreign body on the left. IMPRESSION: 1. Bilateral symmetric arthropathy with no erosive change or acute fracture. 2. Linear metallic density overlying the distal soft tissues adjacent to the distal tibia suggestive of chronic foreign body.
--- NOTE | 2021-10-11 14:10 | XR ---
EXAMINATION TYPE: XR ankle complete bilateral DATE OF EXAM: 10/11/2021 COMPARISON: NONE HISTORY: Pain FINDINGS: Three views of the bilateral ankle demonstrate the ankle mortise to be intact and symmetric. Right ankle: The joint spaces are preserved. The osseous structures are intact. Spurring along the medial malleolus. Left ankle: Joint spaces preserved. No acute fracture or dislocation. Linear metallic foreign body al berry the medial margin of the penis tissues adjacent to the distal tibia again noted. IMPRESSION: 1. No definite acute fracture or dislocation, if symptoms persist follow-up study in 7 to 10 days wou ld be suggested. 2. Foreign body linear metallic density along the medial margin of the distal diaphysis tibia subcuta neous tissues.
== END | disposition home or self-care (01) ==
LOC: RADXRMAIN 13:35
PROVIDERS: ATTEND Family Medicine
DX: M19.071 Primary osteoarthritis, right ankle and foot (principal); M19.072 Primary osteoarthritis, left ankle and foot; M79.5 Residual foreign body in soft tissue; M51.37 Other intervertebral disc degeneration, lumbosacral region

== ENCOUNTER → 2021-11-28 | Outpatient (CLI) | payer OTHER ==
[2021-11-28 23:30] LABS: Anion Gap 12.7 mmol/L (10.00-18.00); Blood Urea Nitrogen 11.2 mg/dL (9.0-27.0); Non-African American GFR(CKD) 88.9 (60.0-200.0); Potassium 4.7 mmol/L (3.5-5.5)
[2021-11-28 23:39] LABS: HCT 53.3 % (39.6-50.0); HGB 16.9 g/dL (13.0-17.0); MCH 31.8 pg (27.0-32.0); MCHC 31.7 g/dL (32.0-37.0); MCV 100.2 fL (80.0-97.0); Mean Platelet Volume 10.9 fL (9.5-12.2); NRBC Per 100 WBC 0 /100 WBCS (0.0-0.0); Platelet Count 175 X 10*3/uL (140-440); RBC 5.32 X 10*6/uL (4.40-5.60); RDW 12.9 % (11.5-14.5); WBC 9.49 X 10*3/uL (4.50-10.00)
== END | disposition home or self-care (01) ==
LOC: LABPAT 14:21
PROVIDERS: ATTEND Internal Medicine Cardiovascular Disease
DX: Z01.812 Encounter for preprocedural laboratory examination (principal); R07.2 Precordial pain
CPT/HCPCS: 80051; 82565; 84520; 85027

== ENCOUNTER 2021-12-04 09:21 | Day surgery (SDC) | payer OTHER ==
[2021-12-03 15:36] VITALS: BMI 33.3
[~2021-12-04 09:21] MED LIST: ALPRAZolam 0.25 MG TAB PO PRN; ALPRAZolam 0.5 MG TAB PO PRN; ASPIRIN 325 MG TAB PO STA; ATORVASTATIN 80 MG TAB PO STA; HEPARIN SODIUM,PORCINE 10,000 UNIT in SODIUM CHLORIDE 0.9% 1,000 ML IRRIGATION PRN; HEPARIN SODIUM,PORCINE 2,500 UNIT in SODIUM CHLORIDE 0.9% 250 ML IRRIGATION PRN; NITROGLYCERIN SL TABS 0.4 MG TAB SUBLINGUAL PRN
[2021-12-04] MEDS ORDERED: SODIUM CHLORIDE 0.9% 1,000 ML IV ONE (09:41)
[2021-12-04 09:49] LABS: Glucose,Whole Blood 98 mg/dL (75-99)
[2021-12-04] MEDS ORDERED: LIDOCAINE 1% INJ 10MG/ML (20 ML MDV) ONE (10:12)
[2021-12-04] MEDS ORDERED: VERAPAMIL 2.5 MG/ML 2 ML AMP ONE (10:12)
[2021-12-04] MEDS ORDERED: fentaNYL (PF) 50 MCG/ML 2 ML AMP ONE (10:21)
[2021-12-04] MEDS ORDERED: HEPARIN SODIUM 1,000 UN/ML (10ML VL) ONE (10:21)
[2021-12-04] MEDS: fentaNYL (PF) 50 MCG/ML 2 ML AMP IV ONE ×2 (10:40→11:58)
[2021-12-04] MEDS ORDERED: MIDAZOLAM 2 MG/2 ML VIAL IV ONE (10:40)
[2021-12-04] MEDS ORDERED: methylPREDNISolone SOD SUCCI 125 MG/2 ML VIAL IV ONE (10:41)
[2021-12-04] MEDS ORDERED: methylPREDNISolone SOD SUCCI 125 MG/2 ML VIAL ONE (10:41)
[2021-12-04] MEDS ORDERED: LIDOCAINE 1% INJ 10MG/ML (20 ML MDV) SQ ONE (10:43)
[2021-12-04] MEDS ORDERED: VERAPAMIL SYRINGE (5 MG/10 ML) INTRAARTER ONE (10:52)
[2021-12-04] MEDS: HEPARIN SODIUM 1,000 UN/ML (10ML VL) IV ONE ×4 (10:54→12:14)
[2021-12-04] MEDS ORDERED: HYDROmorphone 1 MG/ML 1 ML SYRINGE IVP ONE (11:43)
[2021-12-04] MEDS ORDERED: IOPAMIDOL-370 125ML BTL INJ ONE (11:45)
[2021-12-04] MEDS: NITROGLYCERIN 1000MCG/10ML SYRINGE INTRACORON ONE ×2 (11:53→12:07)
[2021-12-04] MEDS ORDERED: IOPAMIDOL-370 100ML BTL INJ ONE ×2 (12:05→12:20)
[2021-12-04] MEDS ORDERED: CLOPIDOGREL 75 MG TAB ONE (12:15)
[2021-12-04] MEDS ORDERED: CLOPIDOGREL 75 MG TAB PO ONE (12:20)
[2021-12-04] MEDS ORDERED: ALBUTEROL HFA INHALER INHALATION PRN (12:28)
[2021-12-04] MEDS ORDERED: IPRATROPIUM-ALBUTEROL 3 ML NEB INHALATION PRN (12:28)
[2021-12-04] MEDS ORDERED: NITROGLYCERIN SL TABS 0.4 MG TAB SUBLINGUAL PRN (12:28)
[2021-12-04 13:13] LABS: Glucose,Whole Blood 141 mg/dL (75-99)
--- NOTE | 2021-12-04 13:47 | CC ---
CARDIAC CATHETERIZATION REPORT INDICATION: Unstable angina. PROCEDURE NOTE: After obtaining informed consent, left heart catheterization and coronary angiogram were performed via the right radial artery. Right coronary artery was engaged using a 3 and half Rossy catheter. Left coronary artery was engaged using a size 3.0 Rossy catheters. A pigtail was used to obtain pressures. The patient tolerated the procedure well without any obvious immediate complications. The patient received moderate conscious sedation. Total sedation time was 33 minutes. Using a micropuncture needle, right radial artery access was obtained. Catheters and wires were floated into the ascending aorta under fluoroscopic guidance. The patient received 5 mg of verapamil and 5000 units of IV heparin per protocol. FINDINGS: HEMODYNAMICS: Left ventricular end-diastolic pressure is 12 mm. There is no significant gradient across the aortic valve. LEFT VENTRICULOGRAM: Not performed. ANGIOGRAPHIC DATA: LEFT MAIN CORONARY ARTERY: Left main coronary artery is a normal-sized vessel and is free of stenosis. Divides into left anterior descending coronary artery and circumflex coronary artery. LEFT ANTERIOR DESCENDING CORONARY ARTERY: LAD shows a focal 80-90 percent stenosis in the proximal LAD. CIRCUMFLEX CORONARY ARTERY: Circumflex coronary artery shows mild nonobstructive disease. RIGHT CORONARY ARTERY: Right coronary artery is a large dominant vessel that was previously stented in the proximal portion that appears patent, but distal to the stent there is a focal 60-70% stenosis. CONCLUSION: 1. 80-90% proximal LAD stenosis. 2. 60-70 percent mid RCA lesion. PLAN: The patient will undergo angioplasty with stent placement of LAD and might undergo a staged angioplasty of the right coronary artery if he continues to have symptoms. MMODL / IJN: [id number] /
--- NOTE | 2021-12-04 13:47 | LTR ---
DATE OF SERVICE: 12/04/2021 Dear Damir: I performed cardiac catheterization on Power Fajardo. A detailed cardiac catheterization is enclosed for your records. In brief, cardiac catheterization reveals significant stenosis in the proximal LAD and he will undergo angioplasty of the same. Thank you for giving us the privilege to participate in the care of this pleasant gentleman. Sincerely, DURGA / KARLI: [id number] /
[2021-12-04] MEDS: SODIUM CHLORIDE 0.9% 1,000 ML IV SCH ×2 (14:00→21:00)
--- NOTE | 2021-12-04 14:09 | PTCA ---
PERCUTANEOUSTRANS CORORONARY ANGIOGRAPHY DATE OF SERVICE: 12/04/2021 PROCEDURE: 1. Percutaneous transluminal coronary angioplasty and stenting of proximal LAD with a drug-eluting stent. 2. Percutaneous transluminal coronary angioplasty and stenting of mid RCA with a drug- eluting stent. PERFORMED BY: Dr. Aron Durán. Moderate conscious sedation time was 40 minutes. Patient was administered Versed, fentanyl and Dilaudid. Oxygen, EKG and hemodynamics were monitored closely. CLINICAL INFORMATION: Mr. Power Fajardo is a 61-year-old gentleman with a history of smoking, hypertension, seizure disorder, hyperlipidemia, CAD with previous stenting of RCA performed by me in 2014. He had moderate LAD disease that was negative FFR in 2018. Because of increasing anginal symptoms, he was admitted and underwent a cardiac catheterization by Dr. Ya which revealed a significant lesion in the proximal LAD of about 80% to 90%, eccentric in nature, best seen in caudal projection. He also had a significant area of disease in the mid RCA well beyond the previously stented proximal RCA, which was widely patent. He was advised intervention that was performed in the same setting. PROCEDURE NOTE: The existing 6-Icelandic introducer in the right radial artery was used to perform the procedure. Initially I tried a JL3.5, then switched over to an XB LAD 3.0 guide catheter of 6-Icelandic caliber to cannulate the left coronary artery. A run-through wire was used to cross the lesion. A 2.5 caliber 15 mm long NC Trek balloon was used to pre- dilate the lesion. I then deployed a 3.25 caliber 23 mm long Xience stent in the LAD with excellent angiographic result. Subsequently I turned my attention to the RCA. A standard right Rossy guide catheter was used to cannulate the RCA. A run-through wire was used to cross the lesion. The lesion was located of about 70% to 80% at the junction of middle and distal one third. I deployed an 18 mm long 2.75 caliber Xience stent at 14 atmospheres. Excellent angiographic result without complication was achieved. Patient received heparin intravenously. ACT was very variable; the initial one was 220 and the last one was 205, but in between there was a 370. Patient received 7000 units of heparin and he weighs about 100 kg. He also received 300 mg of Plavix orally. He was already on aspirin and Plavix. Excellent angiographic result without complication was achieved. The details were discussed with the patient as well as his . He will be discharged tomorrow if he remains stable. MMNILAM / KARLI: [id number] /
[2021-12-04] MEDS: SODIUM CHLORIDE 0.9% 1,000 ML in EMPTY BAG 1 BAG IV SCH ×2 (15:50→16:26)
[2021-12-04] MEDS: PREGABALIN 100 MG CAP PO SCH ×2 (16:41→21:08)
[2021-12-04] MEDS: METOPROLOL TARTRATE 25 MG TAB PO SCH (16:41)
[2021-12-04] MEDS: FLUTICASONE 220 MCG INHALER INHALATION SCH (19:17)
[2021-12-04] MEDS: PHENYTOIN SODIUM EXTENDED 100 MG CAP PO SCH (21:07)
[2021-12-04] MEDS: VALPROIC ACID ORAL SOLN 250 MG/5 ML CUP PO SCH (21:08)
[2021-12-04] MEDS: oxyCODONE-APAP 5-325MG 1 EACH TAB PO PRN (21:31)
[2021-12-04 23:40] VITALS: RESP 16
[2021-12-05] MEDS: SODIUM CHLORIDE 0.9% 1,000 ML in EMPTY BAG 1 BAG IV SCH (03:56)
[2021-12-05] MEDS: oxyCODONE-APAP 5-325MG 1 EACH TAB PO PRN (06:52)
[2021-12-05] MEDS: METOPROLOL TARTRATE 25 MG TAB PO SCH (06:53)
[2021-12-05] MEDS ORDERED: NON FORMULARY DRUG (Umeclidinium Bromide [Incruse Ellipta] 62.5 MCG Each) INHALATION SCH (08:00)
[2021-12-05] MEDS: IPRATROPIUM 0.5 MG/2.5 ML NEBU INHALATION SCH ×2 (08:55→11:51)
[2021-12-05] MEDS: FLUTICASONE 220 MCG INHALER INHALATION SCH (08:55)
[2021-12-05] MEDS ORDERED: allopurinoL 100 MG TAB PO SCH (09:00)
[2021-12-05] MEDS ORDERED: CLOPIDOGREL 75 MG TAB PO SCH (09:00)
[2021-12-05] MEDS ORDERED: CHOLESTYRAMINE (WITH SUGAR) 4 GM PACKET PO SCH (09:00)
[2021-12-05] MEDS ORDERED: ATORVASTATIN 80 MG TAB PO SCH (09:00)
[2021-12-05] MEDS ORDERED: FUROSEMIDE 40 MG TAB PO SCH (09:00)
[2021-12-05] MEDS ORDERED: FAMOTIDINE 20 MG TAB PO SCH (09:00)
[2021-12-05] MEDS ORDERED: THEOPHYLLINE 24 HOUR 400 MG CAP.ER.24H PO SCH (09:00)
[2021-12-05] MEDS ORDERED: PARoxetine 20 MG TAB PO SCH (09:00)
[2021-12-05] MEDS ORDERED: LORATADINE 10 MG TAB PO SCH (09:00)
[2021-12-05] MEDS ORDERED: MAGNESIUM OXIDE 400 MG TAB PO SCH (09:00)
[2021-12-05] MEDS ORDERED: MONTELUKAST 10 MG TAB PO SCH (09:00)
[2021-12-05] MEDS ORDERED: ISOSORBIDE MONONITRATE ER 30 MG TAB.ER.24H PO SCH (09:00)
[2021-12-05] MEDS ORDERED: POTASSIUM CHLORIDE ER 10 MEQ TAB.ER.PRT PO SCH (09:00)
[2021-12-05] MEDS ORDERED: ASPIRIN 81 MG PO SCH (09:00)
[2021-12-05] MEDS ORDERED: CALCIUM ACETATE 667 MG TAB PO SCH (09:00)
[2021-12-05 09:01] VITALS: BP 153/77; TEMP 97.8
[2021-12-05] MEDS: PHENYTOIN SODIUM EXTENDED 100 MG CAP PO SCH (09:01)
[2021-12-05] MEDS: PREGABALIN 100 MG CAP PO SCH (09:02)
[2021-12-05] MEDS: VALPROIC ACID ORAL SOLN 250 MG/5 ML CUP PO SCH (09:02)
[2021-12-05 09:07] VITALS: PULSE 72
--- NOTE | 2021-12-05 11:17 | P.DS ---
Providers Attending physician: Juan Ya Primary care physician: [facility] Satellite Course: INTERVAL HISTORY: The patient is a 61-year-old male with a past medical history of coronary disease status post angioplasty of the RCA hypertension, dyslipidemia, severe COPD, former nicotine dependence, admitted to the hospital by Dr. Ya for cardiac catheterization. Patient underwent cardiac catheterization on 12/04/[address] Ya which revealed 8090 percent proximal LAD stenosis, 6070 percent mid RCA lesion previously stented RCA in the proximal portion appears patent. Patient underwent PCI to the proximal LAD and mid RCA by Dr. Durán. Patient seen and examined at bedside, distress. He denies any chest pain or shortness of breath. He denies any palpitations, lightheadedness or dizziness. Right radial cath site, clean, dry, intact, no hematoma, 2+ peripheral pulses. EKG this morning revealed sinus rhythm heart rate 64 with frequent PVCs bigeminy. On telemetry patient in sinus mechanism with frequent PVCs, bigeminy noted. PHYSICAL EXAMINATION: Blood pressure 153/77, heart rate 73, afebrile, oxygen saturations 95% on room air HEART: S1, S2 normal. LUNGS: Clear to auscultation. NECK: Supple. ABDOMEN: Soft. EXTREMITIES: 2+ peripheral pulses. FINAL IMPRESSION: 1. Coronary artery disease with prior PCI to RCA 2. Status post PCI to the proximal LAD and mid RCA and 12/04/2021 3. History of hypertension 4. Severe COPD 5. Premature ventricular complexes PLAN: Patient may be able to be discharged home today. We will make him a follow-up appointment with Dr. Ya. We will change metoprolol to metoprolol succinate 50mg daily, and increase atorvastatin to 80mg daily. Nurse practitioner note has been reviewed by physician. Signing provider agrees with the documented findings, assessment, and plan of care. Plan - Discharge Summary Discharge Rx Participant: Yes New Discharge Prescriptions: New Metoprolol Succinate [Toprol XL] 50 mg PO DAILY 30 Days #30 tab Atorvastatin [Lipitor] 80 mg PO DAILY 30 Days #30 tab Continue PARoxetine [Paxil] 20 mg PO DAILY Loratadine [Claritin] 10 mg PO DAILY Phenytoin Sodium Extended [Dilantin] 200 mg PO BID Clopidogrel Bisulfate [Clopidogrel] 75 mg PO DAILY Magnesium Oxide [Mag-Ox] 400 mg PO DAILY #30 tablet rOPINIRole HCL [Requip] 1 mg PO BID Theophylline Anhydrous [Theophylline] 400 mg PO DAILY allopurinoL [Zyloprim] 100 mg PO DAILY Ergocalciferol (Vitamin D2) [Vitamin D2] 50,000 unit PO Q14D Montelukast [Singulair] 10 mg PO DAILY Nitroglycerin Sl Tabs [Nitrostat] 0.4 mg SUBLINGUAL Q5M PRN PRN Reason: Chest Pain Potassium Chloride [Klor-Con 20] 30 meq PO DAILY Isosorbide Mononitrate ER [Imdur] 30 mg PO DAILY #30 tab mycophenolate mofetiL [Cellcept] 500 mg PO BID Famotidine 20 mg PO DAILY modafiniL [Provigil] 200 mg PO DAILY Tiotropium [place] [Spiriva] 1 cap INHALATION RT-DAILY Fluticasone Propionate [Flovent Hfa 220 mcg] 2 puff INHALATION RT-BID Albuterol Sulfate [Proair Hfa] 2 puff INHALATION RT-Q6H PRN PRN Reason: Shortness Of Breath Cholestyramine (with Sugar) [Cholestyramine Packet] 4 gm PO DAILY Calcium Acetate [PhosLo] 667 mg PO DAILY Ipratropium-Albuterol Nebulize [Duoneb 0.5 mg-3 mg/3 ml Soln] 3 ml INHALATION RT-Q6H PRN PRN Reason: Shortness Of Breath Umeclidinium [place] [Incruse Ellipta] 1 puff INHALATION RT-DAILY Valproic Acid [Depakene] 250 mg PO BID carBAMazepine CHEW [TEGretol Chew] 100 mg PO Q12H oxyCODONE-APAP 5-325MG [Percocet 5-325 mg] 1 tab PO Q6HR PRN PRN Reason: Pain Furosemide [Lasix] 40 mg PO DAILY Pregabalin [Lyrica] 200 mg PO TID Aspirin [Adult Low Dose Aspirin EC] 81 mg PO DAILY Discontinued Atorvastatin [Lipitor] 20 mg PO DAILY Metoprolol Tartrate [Lopressor] 25 mg PO BID-W/MEALS Discharge Medication List Loratadine [Claritin] 10 mg PO DAILY 05/21/16 [History] PARoxetine [Paxil] 20 mg PO DAILY 05/21/16 [History] Phenytoin Sodium Extended [Dilantin] 200 mg PO BID 05/21/16 [History] Clopidogrel Bisulfate [Clopidogrel] 75 mg PO DAILY 05/22/16 [History] Magnesium Oxide [Mag-Ox] 400 mg PO DAILY #30 tablet 07/11/16 [Rx] rOPINIRole HCL [Requip] 1 mg PO BID 08/30/16 [History] Theophylline Anhydrous [Theophylline] 400 mg PO DAILY 10/03/17 [History] Ergocalciferol (Vitamin D2) [Vitamin D2] 50,000 unit PO Q14D 02/04/18 [History] Montelukast [Singulair] 10 mg PO DAILY 02/04/18 [History] Nitroglycerin Sl Tabs [Nitrostat] 0.4 mg SUBLINGUAL Q5M PRN 02/04/18 [History] Potassium Chloride [Klor-Con 20] 30 meq PO DAILY 02/04/18 [History] allopurinoL [Zyloprim] 100 mg PO DAILY 02/04/18 [History] Isosorbide Mononitrate ER [Imdur] 30 mg PO DAILY #30 tab 02/05/18 [Rx] mycophenolate mofetiL [Cellcept] 500 mg PO BID 08/05/19 [History] Famotidine 20 mg PO DAILY 05/12/20 [History] modafiniL [Provigil] 200 mg PO DAILY 05/12/20 [History] Albuterol Sulfate [Proair Hfa] 2 puff INHALATION RT-Q6H PRN 11/15/20 [History] Fluticasone Propionate [Flovent Hfa 220 mcg] 2 puff INHALATION RT-BID 11/15/20 [History] Tiotropium [place] [Spiriva] 1 cap INHALATION RT-DAILY 11/15/20 [History] Cholestyramine (with Sugar) [Cholestyramine Packet] 4 gm PO DAILY 12/13/20 [History] Calcium Acetate [PhosLo] 667 mg PO DAILY 08/07/21 [History] Furosemide [Lasix] 40 mg PO DAILY 08/07/21 [History] Ipratropium-Albuterol Nebulize [Duoneb 0.5 mg-3 mg/3 ml Soln] 3 ml INHALATION RT-Q6H PRN 08/07/21 [History] Pregabalin [Lyrica] 200 mg PO TID 08/07/21 [History] Umeclidinium [place] [Incruse Ellipta] 1 puff INHALATION RT-DAILY 08/07/21 [History] Valproic Acid [Depakene] 250 mg PO BID 08/07/21 [History] carBAMazepine CHEW [TEGretol Chew] 100 mg PO Q12H 08/07/21 [History] Aspirin [Adult Low Dose Aspirin EC] 81 mg PO DAILY 12/03/21 [History] oxyCODONE-APAP 5-325MG [Percocet 5-325 mg] 1 tab PO Q6HR PRN 12/03/21 [History] Atorvastatin [Lipitor] 80 mg PO DAILY 30 Days #30 tab 12/05/21 [Rx] Metoprolol Succinate [Toprol XL] 50 mg PO DAILY 30 Days #30 tab 12/05/21 [Rx] Follow up Appointment(s)/Referral(s): Juan Ya MD [STAFF PHYSICIAN] - 12/11/21 9:00 am Patient Instructions/Handouts: After Radial Heart Catheterization (GEN), Procedural Sedation (ED), Left Heart Catheterization (DC) Activity/Diet/Wound Care/Special Instructions: No driving today or tomorrow. Remove dressing tomorrow afternoon, ok to shower but no baths, pools, hot tubs, soaking wrist for five days. No need to apply dressing, ointments, powders to site. Leave open to the air. Avoid bending, flexing, pushing, pulling, lifting greater than 5 lbs for 5days. If puncture site bleeds, apply firm direct pressure and return to ER. Signs of infections IE: fever, rash, drainage from puncture site, swelling contact doctor for further orders/return to ER.
[2021-12-18] MEDS ORDERED: ERGOCALCIFEROL 1,250 MCG (50,000 IU) CAPSULE PO SCH (09:00)
== END 2021-12-05 11:51 ==
LOC: CATHCVL 09:21 → 3SCARD 12:09 → CATHCVL 12-05 11:51
PROVIDERS: ATTEND Internal Medicine Cardiovascular Disease
DX: I25.110 Atherosclerotic heart disease of native coronary artery with unstable angina pectoris (principal); I10 Essential (primary) hypertension; E78.5 Hyperlipidemia, unspecified; J44.9 Chronic obstructive pulmonary disease, unspecified; Z95.5 Presence of coronary angioplasty implant and graft; F17.210 Nicotine dependence, cigarettes, uncomplicated; Z79.51 Long term (current) use of inhaled steroids; Z79.52 Long term (current) use of systemic steroids; Z79.02 Long term (current) use of antithrombotics/antiplatelets; Z79.82 Long term (current) use of aspirin; Z79.899 Other long term (current) drug therapy; Z88.8 Allergy status to other drugs, medicaments and biological substances; Z88.0 Allergy status to penicillin
CPT/HCPCS: 94640 ×3; 93458; C9600 ×2; C1769 ×2; C1887 ×3; C1894; C1725; C1874 ×2; J2250; J2930; J2001; J3010; J7517 ×2; J1644; J1170; Q9967 ×2

== ENCOUNTER → 2022-04-10 | Outpatient (CLI) | payer OTHER ==
--- NOTE | 2022-04-10 14:30 | CTL ---
EXAMINATION TYPE: CT Low Dose Lung DATE OF EXAM ORDERED: 04/10/2022 HISTORY: . Lung cancer screening CT DLP: [address] CTDI: 2.6 mGy Automated exposure control for dose reduction was used. SCREENING VISIT: COMPARISON: CT chest 01/18/2020 TECHNIQUE: Low dose computed tomography scan was performed through the chest at 1 mm thick sections a nd reconstructed images in multiple planes at 1 mm and [address] DIAGNOSTIC QUALITY: Satisfactory FINDINGS: There is diffuse emphysematous changes. Subsegmental consolidation is seen. Most typical of atelectas is. No pleural thickening, pleural effusion or pleural calcifications. Atherosclerotic change of the aorta and coronary artery calcifications are noted. Heart mildly enlarged. Hypertrophic and degenerative changes of the spine. Structures of the upper abdomen demonstrate no ac white earth process. Question small fat-containing left-sided diaphragmatic hernia. Grossly no pathologic adenopathy by noncontrast technique. Small hiatal hernia. Subsegmental change i nvolving the lung bases are suggestive of scar or atelectasis. There is a 3 mm subpleural nodule right lower lobe axial image 166. There is a calcified 1 mm nodule anteriorly subpleural location left upper lobe. IMPRESSION: 1. COPD with sub-5 mm pulmonary nodules too small to characterize but likely benign. 2. Dense coronary artery calcification correlate clinically. CT LUNG RAD AND CT CHEST RECOMMENDATION: Lung-Rad 2 Benign Appearance or Behavior: Continue annual sc reening with LDCT in 12 months.
== END | disposition home or self-care (01) ==
LOC: RADCTMAIN 13:56
PROVIDERS: ATTEND Internal Medicine Critical Care Medicine
DX: Z12.2 Encounter for screening for malignant neoplasm of respiratory organs (principal); J44.9 Chronic obstructive pulmonary disease, unspecified; Z87.891 Personal history of nicotine dependence
CPT/HCPCS: 71271

== ENCOUNTER → 2022-05-13 | Outpatient (CLI) | payer OTHER ==
--- NOTE | 2022-05-13 16:22 | US ---
EXAMINATION TYPE: US kidneys/renal and bladder DATE OF EXAM: 05/13/2022 COMPARISON: NONE CLINICAL HISTORY: N18.2 CKD STAGE II. EXAM MEASUREMENTS: Right Kidney: 13.2 x 4.6 x 5.4 cm Left Kidney: 12.4 x 5.3 x 4.8 cm Technically difficult study, patient of large body habitus. Right Kidney: No hydronephrosis, shadowing calculi, or contour deforming solid mass. Cortical medulla ry differentiation is maintained. Left Kidney: No hydronephrosis, shadowing calculi, or contour deforming solid mass. Cortical medullar y differentiation is maintained. Bladder: wnl IMPRESSION: No evidence of obstructive uropathy or shadowing renal calculi.
== END | disposition home or self-care (01) ==
LOC: RADUSWWP 13:34
PROVIDERS: ATTEND Internal Medicine
DX: N18.2 Chronic kidney disease, stage 2 (mild) (principal)
CPT/HCPCS: 76770

== ENCOUNTER → 2022-06-13 | Outpatient (CLI) | payer OTHER ==
--- NOTE | 2022-06-13 12:31 | XR ---
EXAMINATION TYPE: XR chest 2V DATE OF EXAM: 06/13/2022 COMPARISON: 08/17/2021 TECHNIQUE: PA and lateral views submitted. HISTORY: Shortness of breath FINDINGS: The lungs are clear and there is no pneumothorax, pleural effusion, or focal pneumonia. Arthropathy of the shoulders with diffuse osteopenia. Biapical pleural thickening. Heart size normal. Hypertroph ic and degenerative change of the spine. IMPRESSION: 1. Subsegmental changes at the lung bases with elevated left hemidiaphragm. Correlate for atelectasis versus early infiltrate. 2. Correlate for chronic interstitial lung disease and underlying COPD..
== END | disposition home or self-care (01) ==
LOC: RADXRMAIN 11:52
PROVIDERS: ATTEND Family Medicine
DX: J44.9 Chronic obstructive pulmonary disease, unspecified (principal); J98.6 Disorders of diaphragm
CPT/HCPCS: 71046

== ENCOUNTER → 2022-07-25 | Outpatient (CLI) | payer OTHER ==
[2022-07-25 23:23] LABS: HCT 51.9 % (39.6-50.0); HGB 17.4 g/dL (13.0-17.0); MCH 33.5 pg (27.0-32.0); MCHC 33.5 g/dL (32.0-37.0); Mean Platelet Volume 10.3 fL (9.5-12.2); NRBC Per 100 WBC 0 /100 WBCS (0.0-0.0); Platelet Count 170 X 10*3/uL (140-440); RBC 5.19 X 10*6/uL (4.40-5.60); RDW 14.3 % (11.5-14.5); WBC 8.71 X 10*3/uL (4.50-10.00)
[2022-07-25 23:53] LABS: Appearance,Urine Clear (Clear); Bilirubin,Urine Negative (Negative); Blood,Urine Negative (Negative); Color,Urine Dark Yellow (Yellow); Ketones,Urine Trace mg/dL (Negative); Nitrite,Urine Negative (Negative); PH, Urine 5.5 (5.0-8.0); Specific Gravity,Urine 1.024 (1.001-1.030)
[2022-07-26] LABS: % Iron Saturation 25.11 (15.00-50.00); Albumin 4.3 g/dL (3.8-4.9); Albumin/Globulin Ratio 1.85 (1.60-3.17); Anion Gap 11.9 mmol/L (10.00-18.00); BUN/Creat Ratio 11.7 Ratio (12.00-20.00); Blood Urea Nitrogen 9.8 mg/dL (9.0-27.0); Calcium 9.2 mg/dL (8.7-10.3); Carbon Dioxide 29.5 mmol/L (20.0-27.5); Globulin 2.3 g/dL (1.6-3.3); Magnesium 2.2 mg/dL (1.5-2.4); Phosphorus 3.6 mg/dL (2.4-5.1); Potassium 4.6 mmol/L (3.5-5.5); Total Bilirubin 0.3 mg/dL (0.30-1.20); Total Protein 6.6 g/dL (6.2-8.2); Uric Acid 6.4 mg/dL (3.7-8.7)
== END | disposition home or self-care (01) ==
LOC: LABWHC1 15:47
PROVIDERS: ATTEND Internal Medicine
DX: M32.9 Systemic lupus erythematosus, unspecified (principal)
CPT/HCPCS: 36415; 80053; 81003; 82043; 82306; 82570; 82728; 83540; 83550; 83735; 83970; 84100; 84550; 85027

== ENCOUNTER 2022-10-15 11:00 | Day surgery (SDC) | payer OTHER ==
[~2022-10-15 11:00] MED LIST changes: -ALPRAZolam 0.25 MG TAB PO PRN; -ALPRAZolam 0.5 MG TAB PO PRN; -ASPIRIN 325 MG TAB PO STA; -ATORVASTATIN 80 MG TAB PO STA; -HEPARIN SODIUM,PORCINE 10,000 UNIT in SODIUM CHLORIDE 0.9% 1,000 ML IRRIGATION PRN; -HEPARIN SODIUM,PORCINE 2,500 UNIT in SODIUM CHLORIDE 0.9% 250 ML IRRIGATION PRN; +LACTATED RINGERS 1,000 ML IV SCH; +LIDOCAINE 1% (10MG/ML) FOR IV START INTRADERMA PRN; -NITROGLYCERIN SL TABS 0.4 MG TAB SUBLINGUAL PRN
[2022-10-15 12:30] VITALS: TEMP 97.3
[2022-10-15 12:41] LABS: Glucose,Whole Blood 136 mg/dL (70-110)
[2022-10-15] MEDS ORDERED: PROPOFOL 10 MG/ML 20 ML VIAL IV ONE (12:48)
[2022-10-15] MEDS ORDERED: LIDOCAINE 2% INJ 20 MG/ML (2 ML VIAL) ONE (12:48)
[2022-10-15] MEDS ORDERED: GLYCOPYRROLATE 0.2 MG/ML 2 ML VIAL ONE (12:48)
--- NOTE | 2022-10-15 12:55 | P.GSHP ---
History of Present Illness H&P Date: 10/15/22 Chief Complaint: GERD, abnormal stool test 62-year-old male known to our service. Patient underwent upper and lower endoscopy September 2020. Patient had a small transverse colon polyp removed. No tissue was seen at that time. Mild gastritis also was seen. Patient has some chronic dysphagia type symptoms. Says he had some sort of surgery done on his larynx in the past. He says he has sutures or kevin in his throat. Recently patient had a cologuard test that was abnormal. No complaints of rectal bleeding. 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, lupus, continuous oxygen use at 3L, no cpap used, kidney failure with hemodilaysis in the past, 3 PA's, hypoglycemia Last Myocardial Infarction Date:: 2015 History of Any Multi-Drug Resistant Organisms: None Reported Past Surgical History: Cholecystectomy, Heart Catheterization, Heart Catheterization With Stent, Tonsillectomy Additional Past Surgical History / Comment(s): [place] 7 cardiac stents, neck surgery, upper and lower scopes, spine surgery, pain procedures, Past Anesthesia/Blood Transfusion Reactions: No Reported Reaction Additional Past Anesthesia/Blood Transfusion Reaction / Comment(s): blood transfusion-no reaction, unknown family hx per spouse Date of Last Stent Placement:: 2021 Smoking Status: Current every day smoker - Past Family History Father Family Medical History: Myocardial Infarction (PA) Additional Family Medical History / Comment(s): Father had a PA at the age of 56yrs. Mother Family Medical History: Asthma, Cancer, COPD Additional Family Medical History / Comment(s): Mother had lung cancer. Medications and Allergies Home Medications Medication Instructions Recorded Confirmed Type Loratadine [Claritin] 10 mg PO DAILY 05/21/16 10/10/22 History PARoxetine [Paxil] 20 mg PO DAILY 05/21/16 10/10/22 History Phenytoin Sodium Extended 200 mg PO BID 05/21/16 10/10/22 History [Dilantin] Clopidogrel Bisulfate [Clopidogrel] 75 mg PO DAILY 05/22/16 10/10/22 History Magnesium Oxide [Mag-Ox] 400 mg PO DAILY #30 tablet 07/11/16 10/10/22 Rx rOPINIRole HCL [Requip] 1 mg PO BID 08/30/16 10/10/22 History Theophylline Anhydrous 400 mg PO DAILY 10/03/17 10/10/22 History [Theophylline] Montelukast [Singulair] 10 mg PO DAILY 02/04/18 10/10/22 History Nitroglycerin Sl Tabs [Nitrostat] 0.4 mg SUBLINGUAL Q5M PRN 02/04/18 10/10/22 History Potassium Chloride [Klor-Con 20] 30 meq PO DAILY 02/04/18 10/10/22 History allopurinoL [Zyloprim] 100 mg PO DAILY 02/04/18 10/10/22 History Isosorbide Mononitrate ER [Imdur] 30 mg PO DAILY #30 tab 02/05/18 10/10/22 Rx mycophenolate mofetiL [Cellcept] 500 mg PO BID 08/05/19 10/10/22 History Famotidine 20 mg PO DAILY 05/12/20 10/10/22 History modafiniL [Provigil] 200 mg PO DAILY 05/12/20 10/10/22 History Albuterol Sulfate [Proair Hfa] 2 puff INHALATION RT-Q6H PRN 11/15/20 10/10/22 History Fluticasone Propionate [Flovent 2 puff INHALATION RT-BID 11/15/20 10/10/22 History Hfa 220 mcg] Tiotropium [place] [Spiriva] 1 cap INHALATION RT-DAILY 11/15/20 10/10/22 History Calcium Acetate [PhosLo] 667 mg PO DAILY 08/07/21 10/10/22 History Furosemide [Lasix] 40 mg PO DAILY 08/07/21 10/10/22 History Ipratropium-Albuterol Nebulize 3 ml INHALATION RT-Q6H PRN 08/07/21 10/10/22 History [Duoneb 0.5 mg-3 mg/3 ml Soln] Pregabalin [Lyrica] 200 mg PO TID 08/07/21 10/10/22 History Umeclidinium [place] [Incruse 1 puff INHALATION RT-DAILY 08/07/21 10/10/22 History Ellipta] Valproic Acid [Depakene] 250 mg PO BID 08/07/21 10/10/22 History carBAMazepine CHEW [TEGretol Chew] 100 mg PO Q12H 08/07/21 10/10/22 History Aspirin [Adult Low Dose Aspirin EC] 81 mg PO DAILY 12/03/21 10/10/22 History oxyCODONE-APAP 5-325MG [Percocet 1 tab PO Q6HR PRN 12/03/21 10/10/22 History 5-325 mg] Atorvastatin [Lipitor] 80 mg PO DAILY 30 Days #30 tab 12/05/21 10/10/22 Rx Metoprolol Succinate [Toprol XL] 50 mg PO DAILY 30 Days #30 tab 12/05/21 10/10/22 Rx Allergies Allergy/AdvReac Type Severity Reaction Status Date / Time Penicillins Allergy Severe Swelling Verified 10/15/22 12:24 Iodinated Contrast Media Allergy Swelling Verified 10/15/22 12:24 [Iodinated Contrast- Oral and IV Dye] iodine Allergy Itching, Verified 10/15/22 12:24 Hives phenobarbital AdvReac Drowsiness Verified 10/15/22 12:24 Surgical - Exam Vital Signs Temp Pulse Resp BP Pulse Ox 97.3 F L 86 20 138/67 93 L 10/15/22 12:21 10/15/22 12:21 10/15/22 12:21 10/15/22 12:21 10/15/22 12:21 Physical exam: General: Well-developed, well-nourished HEENT: Normocephalic, sclerae nonicteric Abdomen: Nontender, nondistended Extremities: No edema Neuro: Alert and oriented Results - Labs Abnormal Lab Results - Last 24 Hours (Table) 10/15/22 Range/Units 12:38 POC Glucose (mg/dL) 136 H (70-110) mg/dL Assessment and Plan (1) Abnormal stool test Narrative/Plan: Will proceed with upper and lower endoscopy Current Visit: Yes Status: Acute Code(s): R19.5 - OTHER FECAL ABNORMALITIES SNOMED Code(s): 198384179
--- NOTE | 2022-10-15 13:22 | P.PCN ---
Date of Procedure: 10/15/22 Procedure(s) Performed: PREOPERATIVE DIAGNOSIS: GERD, abnormal stool test POSTOPERATIVE DIAGNOSIS: Erosive gastritis, small hiatal hernia, sigmoid polyp, rectal polyp, poor prep PROCEDURE: 1. EGD with biopsy 2. Colonoscopy with snare polypectomy ANESTHESIA: MAC SURGEON: Ray Dimas M.D. SPECIMENS: Antrum ENDOSCOPIC PROCEDURE: The patient was on the endoscopy table in the left decubitus position. The Olympus gastroscope was inserted into the oropharynx and passed under direct visualization to the region of the third portion of the duodenum. From that point the scope was slowly withdrawn inspecting all surfaces carefully. There were no neoplastic inflammatory or polypoid lesions throughout the duodenum. The pylorus was widely patent. The stomach was carefully inspected. There was gastritis present throughout the stomach with small superficial erosions noted. A biopsy of the antrum took place to rule out H. pylori. Retroflexion revealed a small sliding hiatal hernia. The esophagus was then carefully examined. There were no neoplastic inflammatory or polypoid lesions throughout the visualized esophagus. The patient was kept on the endoscopy table in the left decubitus position. The Olympus colonoscope was inserted into the anus and passed under direct visualization to the base of the cecum. The appendiceal orifice was visualized. From that point the scope was slowly withdrawn inspecting all surfaces carefully. There were no neoplastic inflammatory or polypoid lesions throughout the cecum, ascending, transverse, and descending colon. In the sigmoid colon a small polyp was seen and removed using snare with cautery technique. In the rectum another small polyp was seen and removed in a similar fashion. The remainder of the rectum was normal. The patient's prep was poor with some retained liquid and solid stool throughout. Digital rectal examination was n ormal. The patient was taken to the recovery room in stable condition per anesthesia guidelines. RECOMMENDATIONS: Await biopsy results. Consider short-term repeat colonoscopy given the poor prep.
[2022-10-15 13:29] VITALS: PULSE 95; RESP 16
[2022-10-15 13:47] VITALS: BP 125/70
== END 2022-10-15 14:23 | disposition home or self-care (01) ==
LOC: ORWHC2ENDO 11:00
PROVIDERS: ATTEND Surgery
DX: K29.50 Unspecified chronic gastritis without bleeding (principal); D12.5 Benign neoplasm of sigmoid colon; D12.8 Benign neoplasm of rectum; K44.9 Diaphragmatic hernia without obstruction or gangrene; I25.10 Atherosclerotic heart disease of native coronary artery without angina pectoris; I11.0 Hypertensive heart disease with heart failure; I50.9 Heart failure, unspecified; E78.5 Hyperlipidemia, unspecified; I25.2 Old myocardial infarction; M19.90 Unspecified osteoarthritis, unspecified site; J18.9 Pneumonia, unspecified organism; G47.30 Sleep apnea, unspecified; G89.29 Other chronic pain; G40.909 Epilepsy, unspecified, not intractable, without status epilepticus; K21.9 Gastro-esophageal reflux disease without esophagitis; J44.9 Chronic obstructive pulmonary disease, unspecified; Z90.49 Acquired absence of other specified parts of digestive tract; Z90.89 Acquired absence of other organs; Z95.5 Presence of coronary angioplasty implant and graft; Z98.890 Other specified postprocedural states; F17.200 Nicotine dependence, unspecified, uncomplicated; Z82.49 Family history of ischemic heart disease and other diseases of the circulatory system; Z80.1 Family history of malignant neoplasm of trachea, bronchus and lung; Z79.899 Other long term (current) drug therapy; Z79.51 Long term (current) use of inhaled steroids; Z79.82 Long term (current) use of aspirin; Z88.0 Allergy status to penicillin; Z88.5 Allergy status to narcotic agent; Z88.8 Allergy status to other drugs, medicaments and biological substances
CPT/HCPCS: 45385; 43239; J2704; J2001; 88305

== ENCOUNTER 2022-10-28 23:35 | Emergency (ER) | payer OTHER ==
--- NOTE | 2022-10-29 00:17 | ED ---
Lower Extremity Injury HPI - General Chief Complaint: Extremity Injury, Lower Stated Complaint: Fall Time Seen by Provider: 10/28/22 23:58 Source: patient, RN notes reviewed, old records reviewed Mode of arrival: wheelchair Limitations: physical limitation - History of Present Illness Initial Comments: This is a 62-year-old male, patient presents today for evaluation regards to severe right foot pain and ankle pain knee pain. Patient feels like something is significantly out of place. Unable to bear weight. No prior significant significant fractures no other injury noted. Patient's initial fall was mechanical, slipped on ice Complaint: knee injury, ankle injury, other (Right lower extremity injury) -: hour(s) Injury: Ankle: Right, Foot: Right, Toes: Right Type of Injury: blunt, inversion, hyperextension Severity: severe Severity scale (1-10): 10 Improves With: nothing Worsens With: nothing Context: fall, walking Associated Symptoms: snap/pop sensation, swelling, numbness Treatments Prior to Arrival: other (0) - Related Data Home Medications Medication Instructions Recorded Confirmed Loratadine [Claritin] 10 mg PO DAILY 05/21/16 10/10/22 PARoxetine [Paxil] 20 mg PO DAILY 05/21/16 10/10/22 Phenytoin Sodium Extended 200 mg PO BID 05/21/16 10/10/22 [Dilantin] Clopidogrel Bisulfate [Clopidogrel] 75 mg PO DAILY 05/22/16 10/10/22 rOPINIRole HCL [Requip] 1 mg PO BID 08/30/16 10/10/22 Theophylline Anhydrous 400 mg PO DAILY 10/03/17 10/10/22 [Theophylline] Montelukast [Singulair] 10 mg PO DAILY 02/04/18 10/10/22 Nitroglycerin Sl Tabs [Nitrostat] 0.4 mg SUBLINGUAL Q5M PRN 02/04/18 10/10/22 Potassium Chloride [Klor-Con 20] 30 meq PO DAILY 02/04/18 10/10/22 allopurinoL [Zyloprim] 100 mg PO DAILY 02/04/18 10/10/22 mycophenolate mofetiL [Cellcept] 500 mg PO BID 08/05/19 10/10/22 Famotidine 20 mg PO DAILY 05/12/20 10/10/22 modafiniL [Provigil] 200 mg PO DAILY 05/12/20 10/10/22 Albuterol Sulfate [Proair Hfa] 2 puff INHALATION RT-Q6H PRN 11/15/20 10/10/22 Fluticasone Propionate [Flovent 2 puff INHALATION RT-BID 11/15/20 10/10/22 Hfa 220 mcg] Tiotropium [place] [Spiriva] 1 cap INHALATION RT-DAILY 11/15/20 10/10/22 Calcium Acetate [PhosLo] 667 mg PO DAILY 08/07/21 10/10/22 Furosemide [Lasix] 40 mg PO DAILY 08/07/21 10/10/22 Ipratropium-Albuterol Nebulize 3 ml INHALATION RT-Q6H PRN 08/07/21 10/10/22 [Duoneb 0.5 mg-3 mg/3 ml Soln] Pregabalin [Lyrica] 200 mg PO TID 08/07/21 10/10/22 Umeclidinium [place] [Incruse 1 puff INHALATION RT-DAILY 08/07/21 10/10/22 Ellipta] Valproic Acid [Depakene] 250 mg PO BID 08/07/21 10/10/22 carBAMazepine CHEW [TEGretol Chew] 100 mg PO Q12H 08/07/21 10/10/22 Aspirin [Adult Low Dose Aspirin EC] 81 mg PO DAILY 12/03/21 10/10/22 oxyCODONE-APAP 5-325MG [Percocet 1 tab PO Q6HR PRN 12/03/21 10/10/22 5-325 mg] Previous Rx's Medication Instructions Recorded Magnesium Oxide [Mag-Ox] 400 mg PO DAILY #30 tablet 07/11/16 Isosorbide Mononitrate ER [Imdur] 30 mg PO DAILY #30 tab 02/05/18 Atorvastatin [Lipitor] 80 mg PO DAILY 30 Days #30 tab 12/05/21 Metoprolol Succinate [Toprol XL] 50 mg PO DAILY 30 Days #30 tab 12/05/21 Allergies Allergy/AdvReac Type Severity Reaction Status Date / Time Penicillins Allergy Severe Swelling Verified 10/15/22 12:24 ibuprofen [From Motrin] Allergy Rash/Hives Verified 10/29/22 01:04 Iodinated Contrast Media Allergy Swelling Verified 10/15/22 12:24 [Iodinated Contrast- Oral and IV Dye] iodine Allergy Itching, Verified 10/15/22 12:24 Hives phenobarbital AdvReac Drowsiness Verified 10/15/22 12:24 Review of Systems ROS Statement: Those systems with pertinent positive or pertinent negative responses have been documented in the HPI. ROS Other: All systems not noted in ROS Statement are negative. 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, lupus, continuous oxygen use at 3L, no cpap used, kidney failure with hemodilaysis in the past, 3 FL's, hypoglycemia Last Myocardial Infarction Date:: 2015 History of Any Multi-Drug Resistant Organisms: None Reported Past Surgical History: Cholecystectomy, Heart Catheterization, Heart Catheterization With Stent, Tonsillectomy Additional Past Surgical History / Comment(s): [place] 7 cardiac stents, neck surgery, upper and lower scopes, spine surgery, pain procedures, Past Anesthesia/Blood Transfusion Reactions: No Reported Reaction Additional Past Anesthesia/Blood Transfusion Reaction / Comment(s): blood transfusion-no reaction, unknown family hx per spouse Date of Last Stent Placement:: 2021 Past Psychological History: Anxiety, Depression Smoking Status: Current every day smoker Past Alcohol Use History: Occasional Past Drug Use History: None Reported - Past Family History Father Family Medical History: Myocardial Infarction ([place]) Additional Family Medical History / Comment(s): Father had a FL at the age of 56yrs. Mother Family Medical History: Asthma, Cancer, COPD Additional Family Medical History / Comment(s): Mother had lung cancer. General Exam Limitations: physical limitation General appearance: alert, in no apparent distress Head exam: Present: atraumatic, normocephalic, normal inspection Eye exam: Present: normal appearance, PERRL, EOMI. Absent: scleral icterus, conjunctival injection, periorbital swelling ENT exam: Present: normal exam, mucous membranes moist Neck exam: Present: normal inspection. Absent: tenderness, meningismus, lymphadenopathy Respiratory exam: Present: normal lung sounds bilaterally. Absent: respiratory distress, wheezes, rales, rhonchi, stridor Cardiovascular Exam: Present: regular rate, normal rhythm, normal heart sounds. Absent: systolic murmur, diastolic murmur, rubs, gallop, clicks GI/Abdominal exam: Present: soft, normal bowel sounds. Absent: distended, tenderness, guarding, rebound, rigid Extremities exam: Present: tenderness, normal capillary refill, pedal edema, joint swelling. Absent: normal inspection, full ROM, calf tenderness Back exam: Present: normal inspection Neurological exam: Present: alert, oriented X3, CN II-XII intact Psychiatric exam: Present: normal affect, normal mood Skin exam: Present: warm, dry, intact, normal color. Absent: rash Course Vital Signs 10/28/22 10/29/22 23:48 01:02 Temperature 98.4 F Pulse Rate 46 L 53 L Respiratory 16 22 Rate Blood Pressure 122/73 131/71 O2 Sat by Pulse 93 L 95 Oximetry - Reevaluation(s) Reevaluation #1: 10/29/22 00:52 Medical record is reviewed Reevaluation #2: 10/29/22 00:52 Patient's pain is improved Reevaluation #3: 10/29/22 00:52 Patient informed results questions are answered Reevaluation #4: 10/29/22 00:53 Was pt. sent in by a medical professional or institution? @ -no Did you speak to anyone other than the patient for history? @ -family Did you review nursing and triage notes? @ -agree Were old charts reviewed? @ -no Differential Diagnosis? @ -prior EKG interpreted by me (3pts min.)? @ -[none] X-rays interpreted by me (1pt min.)? @ -[none] CT interpreted by me (1pt min.)? @ -[none] U/S interpreted by me (1pt. min.)? @ -[none] What testing was considered but not performed? (CT, X-rays, U/S, labs)? Why? @ no What meds were considered but not given? Why? @ -[none] Did you discuss the management of the patient with other professionals? @ -no Did you reconcile home meds? @ -[none] Was smoking cessation discussed for >3mins.? @ -[none] Was critical care preformed (if so, how long)? @ -[none] Were there social determinants of health that impacted care today? How? (Homelessness, low income, unemployed, alcoholism, drug addiction, transportation, low edu. Level, literacy, decrease access to med. care, long term, rehab)? @ -no Was there de-escalation of care discussed even if they declined? (Discuss DNR or withdrawal of care, Hospice)? @ -no What co-morbidities impacted this encounter? (DM, HTN, Smoking, COPD, CAD, Cancer, CVA, Hep., AIDS, mental health diagnosis, sleep apnea, morbid obesity)? @ -no Was patient admitted / discharged? @ -dc Undiagnosed new problem with uncertain prognosis? @ -[none] Drug Therapy requiring intensive monitoring for toxicity (Heparin, Nitro, Insulin, Cardizem)? @ -[none] Were any procedures done? @ -[none] Diagnosis/symptom? @ -[default] Acute, or Chronic, or Acute on Chronic? @ -[default] Uncomplicated (without systemic symptoms) or Complicated (systemic symptoms)? @ -[default] Side effects of treatment? @ -[none] Exacerbation, Progression, or Severe Exacerbation] @ -[no] Poses a threat to life or bodily function? @ -[no] Medical Decision Making - Medical Decision Making 62 male DF for evaluation patient with slip and fall trimalleolar right ankle fracture is noted. Patient is splinted here in the ER and will be discharged home - Radiology Data Radiology results: report reviewed (X-ray right knee ankle foot shows positive treadmill fracture right ankle), image reviewed Disposition Clinical Impression: Fall, Trimalleolar fracture of ankle, closed, Closed right ankle fracture Disposition: HOME SELF-CARE Condition: Fair Instructions (If sedation given, give patient instructions): Ankle Fracture (ED) Is patient prescribed a controlled substance at d/c from ED?: No Referrals: Damir Teran MD [Primary Care Provider] - 1-2 days Yunier James MD [Medical Doctor] - 1-2 days Time of Disposition: 02:00
--- NOTE | 2022-10-29 00:36 | XR ---
EXAMINATION TYPE: XR ankle complete RT DATE OF EXAM: 10/29/2022 COMPARISON: 10/11/2021 HISTORY: Ankle pain TECHNIQUE: 3 views FINDINGS: There is a 1 cm nondisplaced chip fracture of the posterior malleolus. There is transverse fracture of the medial malleolus with lateral displacement 6 mm. There is oblique fracture of the dis jessika fibula. There is soft tissue swelling around the ankle. No dislocation. There is Achilles calcane al spurring. IMPRESSION: There is trimalleolar fracture of the ankle without significant displacement. Soft tissue swelling.
--- NOTE | 2022-10-29 00:37 | XR ---
EXAMINATION TYPE: XR knee limited RT DATE OF EXAM: 10/29/2022 COMPARISON: NONE HISTORY: Pain TECHNIQUE: 2 views FINDINGS: There is no sign of fracture nor dislocation. Joint spaces are normal. No sign of knee join t effusion. IMPRESSION: Negative right knee exam. No fracture.
--- NOTE | 2022-10-29 00:40 | XR ---
EXAMINATION TYPE: XR foot limited RT DATE OF EXAM: 10/29/2022 COMPARISON: NONE HISTORY: Foot pain TECHNIQUE: 2 view FINDINGS: Metatarsals are intact. The mid tarsal bones are intact. The toes are intact. There is mild plantar and Achilles calcaneal spurring. There is soft tissue swelling around the ankle. IMPRESSION: Soft tissue swelling. Calcaneal spurring.
[2022-10-29] MEDS ORDERED: HYDROmorphone 1 MG/ML 1 ML SYRINGE IM STA (00:46)
[2022-10-29] MEDS ORDERED: LORazepam 1 MG TAB PO STA (00:47)
[2022-10-29] MEDS: IBUPROFEN 800 MG TAB PO STA ×2 (00:56→01:05)
[2022-10-29] MEDS ORDERED: ACETAMINOPHEN TAB 325 MG TAB PO STA (01:28)
[2022-10-29] MEDS ORDERED: HYDROcodone/APAP 5-325MG 1 EACH TAB PO STA ×2 (01:28→02:54)
[2022-10-29] MEDS ORDERED: ACET/COD 300 MG/30 MG STARTER PACK 6 TAB BTL PO STA (02:54)
[2022-10-29 03:15] VITALS: BP 126/76; PULSE 77; RESP 18; TEMP 98.2
--- NOTE | 2022-10-29 09:39 | CT ---
EXAM: CT Right Lower Extremity Without Intravenous Contrast, Ankle CLINICAL HISTORY: Evaluation for Right ankle FX TECHNIQUE: Axial computed tomography images of the right ankle without intravenous contrast. CTDI is . 9.17 mGy and DLP is 260.8 mGy-cm. This CT exam was performed using one or more of the following dose reduction techniques: automated exposure control, adjustment of the mA and/or kV according to patient size, and/or use of iterative reconstruction technique. COMPARISON: No relevant prior studies available. FINDINGS: Bones/joints: comminuted intra-articular distal fibular fracture. Comminuted intra-articular distal tibial fracture. Ankle mortise appears to remain intact. Diffuse soft tissue swelling about the ankle. No dislocation. Soft tissues: See above. IMPRESSION: Distal fibular and tibial fractures as described above. Radiologist: Wayne Black MD Electronically Signed: 10/29/22 03:03 Study ready at 02:56 and initial results transmitted at 03:03 [facility]
== END 2022-10-29 03:32 | disposition home or self-care (01) ==
LOC: EC 23:35
DX: S82.891A Other fracture of right lower leg, initial encounter for closed fracture (principal); E78.5 Hyperlipidemia, unspecified; G47.30 Sleep apnea, unspecified; I11.0 Hypertensive heart disease with heart failure; I25.10 Atherosclerotic heart disease of native coronary artery without angina pectoris; I25.2 Old myocardial infarction; I50.9 Heart failure, unspecified; J44.9 Chronic obstructive pulmonary disease, unspecified; K21.9 Gastro-esophageal reflux disease without esophagitis; M19.90 Unspecified osteoarthritis, unspecified site; F41.9 Anxiety disorder, unspecified; F17.200 Nicotine dependence, unspecified, uncomplicated; F32.A Depression, unspecified; Z79.51 Long term (current) use of inhaled steroids; Z79.82 Long term (current) use of aspirin; Z79.899 Other long term (current) drug therapy; Z88.0 Allergy status to penicillin; Z88.6 Allergy status to analgesic agent; Z88.8 Allergy status to other drugs, medicaments and biological substances; W00.0XXA Fall on same level due to ice and snow, initial encounter
CPT/HCPCS: 73560; 73610; 73620; 73700; 99284; 96372; J1170

== ENCOUNTER 2023-02-19 15:42 | Observation (INO) | payer OTHER ==
[2023-02-19] MEDS ORDERED: SODIUM CHLORIDE 0.9% 1,000 ML IV STA (15:47)
--- NOTE | 2023-02-19 15:48 | ED ---
Recheck HPI - General Chief Complaint: Arrhythmia/Palpitations Stated Complaint: Bradycardia Time Seen by Provider: 02/19/23 15:46 Source: patient, EMS, RN notes reviewed, old records reviewed Mode of arrival: EMS Limitations: no limitations - History of Present Illness Initial Comments: This is a 63-year-old male to the emergency department for evaluation of shortness of breath and chest pain persistent chronic shortness breath hypoxia on oxygen and significant bradycardia with low heart rate in the doctor's office and sent here today for evaluation regarding doctor's opinion of bradycardia concern for further blockage MD Complaint: abnormal lab (Abnormal heart rate) -: unknown Returns Today for: persistent/worsening pain related to initial visit (Patient does have chest pain and shortness of breath) Symptoms Since Prior Visit: no new symptoms Context: planned re-check (Sent DF for evaluation by primary care) Associated Symptoms: chest pain, shortness of breath Treatments Prior to Arrival: other - Related Data Home Medications Medication Instructions Recorded Confirmed PARoxetine [Paxil] 20 mg PO DAILY 05/21/16 02/19/23 Phenytoin Sodium Extended 200 mg PO BID 05/21/16 02/19/23 [Dilantin] Clopidogrel Bisulfate [Clopidogrel] 75 mg PO DAILY 05/22/16 02/19/23 rOPINIRole HCL [Requip] 1 mg PO BID 08/30/16 02/19/23 Theophylline Anhydrous 400 mg PO DAILY 10/03/17 02/19/23 [Theophylline] Montelukast [Singulair] 10 mg PO DAILY 02/04/18 02/19/23 Nitroglycerin Sl Tabs [Nitrostat] 0.4 mg SUBLINGUAL Q5M PRN 02/04/18 02/19/23 Potassium Chloride [Klor-Con 20] 30 meq PO DAILY 02/04/18 02/19/23 allopurinoL [Zyloprim] 100 mg PO DAILY 02/04/18 02/19/23 mycophenolate mofetiL [Cellcept] 500 mg PO DAILY 08/05/19 02/19/23 Famotidine 20 mg PO DAILY 05/12/20 02/19/23 Valproic Acid [Depakene] 250 mg PO BID 08/07/21 02/19/23 Amitriptyline HCl [Elavil] 25 mg PO HS 02/19/23 02/19/23 Atorvastatin [Lipitor] 20 mg PO DAILY 02/19/23 02/19/23 Divalproex Sodium 250 mg PO BID 02/19/23 02/19/23 Fluticasone/Umeclidin/Vilanter 1 puff INHALATION RT-DAILY 02/19/23 02/19/23 [Meche Garciata 100-62.5-25] Furosemide [Lasix] 40 mg PO BID 02/19/23 02/19/23 Isosorbide Mononitrate ER [Imdur] 60 mg PO DAILY 02/19/23 02/19/23 Magnesium Oxide [Mag-Ox] 400 mg PO Q48H 02/19/23 02/19/23 Metformin Er 1,500 mg PO W/SUPPER 02/19/23 02/19/23 Metoprolol Tartrate [Lopressor] 25 mg PO BID 02/19/23 02/19/23 Sucralfate [Carafate] 1 gm PO AC-BID 02/19/23 02/19/23 Tiotropium [place] [Spiriva 1 puff INHALATION RT-DAILY 02/19/23 02/19/23 Handihaler] oxyCODONE-APAP 10-325MG [Percocet 1 tab PO Q8HR PRN 02/19/23 02/19/23 10-325 mg] predniSONE 10 mg PO DAILY 02/19/23 02/19/23 Previous Rx's Medication Instructions Recorded Pregabalin [Lyrica] 200 mg PO TID #9 cap 11/18/22 modafiniL [Provigil] 200 mg PO DAILY #3 tab 11/18/22 Doxycycline [Vibramycin] 100 mg PO BID 3 Days #6 cap 02/23/23 Formoterol Fumarate [Perforomist] 20 mcg INHALATION RT-BID 30 Days 02/23/23 #1 unit Ipratropium-Albuterol Nebulize 3 ml INHALATION RT-QID each 02/23/23 [Duoneb 0.5 mg-3 mg/3 ml Soln] Nicotine 21Mg/24Hr Patch [Habitrol] 1 patch TRANSDERM DAILY patch 02/23/23 predniSONE 10 mg PO DAILY #30 tab 02/23/23 Allergies Allergy/AdvReac Type Severity Reaction Status Date / Time Penicillins Allergy Severe Swelling Verified 02/19/23 17:33 ibuprofen [From Motrin] Allergy Rash/Hives Verified 02/19/23 17:33 Iodinated Contrast Media Allergy Swelling Verified 02/19/23 17:33 [Iodinated Contrast- Oral and IV Dye] iodine Allergy Itching, Verified 02/19/23 17:33 Hives phenobarbital AdvReac Drowsiness Verified 02/19/23 17:33 Review of Systems ROS Statement: Those systems with pertinent positive or pertinent negative responses have been documented in the HPI. ROS Other: All systems not noted in ROS Statement are negative. 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, lupus, continuous oxygen use at 3L, no cpap used, kidney failure with hemodilaysis in the past, 3 WA's, hypoglycemia Last Myocardial Infarction Date:: 2015 History of Any Multi-Drug Resistant Organisms: None Reported Past Surgical History: Cholecystectomy, Heart Catheterization, Heart Catheterization With Stent, Tonsillectomy Additional Past Surgical History / Comment(s): STATES 7 cardiac stents, neck surgery, upper and lower scopes, spine surgery, pain procedures, Past Anesthesia/Blood Transfusion Reactions: No Reported Reaction Additional Past Anesthesia/Blood Transfusion Reaction / Comment(s): blood transfusion-no reaction, unknown family hx per spouse Date of Last Stent Placement:: 2021 Past Psychological History: Anxiety, Depression Smoking Status: Current every day smoker Past Alcohol Use History: None Reported Past Drug Use History: None Reported - Past Family History Father Family Medical History: Myocardial Infarction (WA) Additional Family Medical History / Comment(s): Father had a WA at the age of 56yrs. Mother Family Medical History: Asthma, Cancer, COPD Additional Family Medical History / Comment(s): Mother had lung cancer. General Exam Limitations: no limitations General appearance: alert, in no apparent distress Head exam: Present: atraumatic, normocephalic, normal inspection Eye exam: Present: normal appearance, PERRL, EOMI. Absent: scleral icterus, conjunctival injection, periorbital swelling ENT exam: Present: normal exam, mucous membranes moist Neck exam: Present: normal inspection. Absent: tenderness, meningismus, lymphadenopathy Respiratory exam: Present: normal lung sounds bilaterally. Absent: respiratory distress, wheezes, rales, rhonchi, stridor Cardiovascular Exam: Present: regular rate, normal rhythm, normal heart sounds. Absent: systolic murmur, diastolic murmur, rubs, gallop, clicks GI/Abdominal exam: Present: soft, normal bowel sounds. Absent: distended, tenderness, guarding, rebound, rigid Extremities exam: Present: normal inspection, full ROM, normal capillary refill. Absent: tenderness, pedal edema, joint swelling, calf tenderness Back exam: Present: normal inspection Neurological exam: Present: alert, oriented X3, CN II-XII intact Psychiatric exam: Present: normal affect, normal mood Skin exam: Present: warm, dry, intact, normal color. Absent: rash Course Vital Signs 02/19/23 02/19/23 02/19/23 15:44 15:50 17:21 Temperature 98.5 F Pulse Rate 36 L 59 L Pulse Rate [ 35 L High Lighter ] Respiratory 15 Rate Blood Pressure 126/60 O2 Sat by Pulse 98 Oximetry 02/19/23 02/19/23 02/19/23 17:39 18:32 20:21 Temperature Pulse Rate 63 65 63 Pulse Rate [ High Lighter ] Respiratory 14 20 Rate Blood Pressure 126/60 120/70 O2 Sat by Pulse 92 L 94 L Oximetry 02/19/23 02/19/23 02/19/23 20:43 20:47 22:17 Temperature Pulse Rate 61 66 65 Pulse Rate [ High Lighter ] Respiratory 19 Rate Blood Pressure 120/70 O2 Sat by Pulse 92 L Oximetry 02/20/23 02/20/23 02/20/23 00:45 02:32 03:45 Temperature Pulse Rate 66 67 77 Pulse Rate [ High Lighter ] Respiratory 12 15 18 Rate Blood Pressure 96/80 138/64 138/64 O2 Sat by Pulse 92 L 92 L 93 L Oximetry 02/20/23 02/20/23 02/20/23 05:43 06:10 07:20 Temperature 98.3 F Pulse Rate 59 L 62 71 Pulse Rate [ High Lighter ] Respiratory 18 18 22 Rate Blood Pressure 146/71 119/71 O2 Sat by Pulse 94 L 96 94 L Oximetry 02/20/23 02/20/23 08:09 08:39 Temperature 98.2 F Pulse Rate 58 L 54 L Pulse Rate [ High Lighter ] Respiratory 22 18 Rate Blood Pressure 135/105 132/70 O2 Sat by Pulse 95 94 L Oximetry - Reevaluation(s) Reevaluation #1: 02/20/23 00:13 Medical records reviewed Reevaluation #2: 02/20/23 00:13 Patient informed results questions answered Reevaluation #3: 02/20/23 00:13 Change in symptoms patient does show PVC which does improve heart rate here in the ER Reevaluation #4: 02/20/23 00:14 Was pt. sent in by a medical professional or institution? @ -no Did you speak to anyone other than the patient for history? @ -no Did you review nursing and triage notes? @ -agree Were old charts reviewed? @ -no Differential Diagnosis? @ -prior EKG interpreted by me (3pts min.)? @ -yes X-rays interpreted by me (1pt min.)? @ -yes CT interpreted by me (1pt min.)? @ -no U/S interpreted by me (1pt. min.)? @ -no What testing was considered but not performed? (CT, X-rays, U/S, labs)? Why? @ -no What meds were considered but not given? Why? @ -no Did you discuss the management of the patient with other professionals? @ -no Did you reconcile home meds? @ -no Was smoking cessation discussed for >3mins.? @ -no Was critical care preformed (if so, how long)? @ -yes31 Were there social determinants of health that impacted care today? How? (Homel essness, low income, unemployed, alcoholism, drug addiction, transportation, low edu. Level, literacy, decrease access to med. care, fpc, rehab)? @ -no Was there de-escalation of care discussed even if they declined? (Discuss DNR or withdrawal of care, Hospice)? @ -no What co-morbidities impacted this encounter? (DM, HTN, Smoking, COPD, CAD, Cancer, CVA, Hep., AIDS, mental health diagnosis, sleep apnea, morbid obesity)? @ -none Was patient admitted / discharged? @ -62 male to the emergency department for evaluation of significant findings here in the endocrine bradycardia PVCs multiple COPD CHF Admitted Undiagnosed new problem with uncertain prognosis? @ -no Drug Therapy requiring intensive monitoring for toxicity (Heparin, Nitro, Insulin, Cardizem)? @ -no Were any procedures done? @ -no Diagnosis/symptom? @ -Bradycardia, PVC, weakness, CHF, COPD Acute, or Chronic, or Acute on Chronic? @ -no Uncomplicated (without systemic symptoms) or Complicated (systemic symptoms)? @ -complicated Side effects of treatment? @ -no Exacerbation, Progression, or Severe Exacerbation] @ -no Poses a threat to life or bodily function? @ -yes Reevaluation #5: 02/20/23 00:14 Differential Chest Pain: Stable Angina, Unstable Angina, STEMI, NSTEMI Aortic Dissection, Pneumothorax, Musculoskeletal, Esophageal Spasm GERD, Cholecystitis, Pancreatitis, Zoster, this is not meant to be an all-inclusive list. Differential Dyspnea: Coronary syndrome, arrhythmia, tamponade, asthma, COPD, pulmonary embolism, pneumonia, pneumothorax, pulmonary effusion, anaphylaxis, diabetic ketoacidosis, flailed chest, pulmonary contusion, diaphragmatic rupture, anemia, neuromuscular, this is not meant to be an all-inclusive list. Medical Decision Making - Medical Decision Making 62 male to the emergency department for chest pain shortness of breath and bradycardia here in the ER. Patient be admitted for further evaluation and supportive care - Lab Data Result diagrams: 02/20/23 05:53 02/23/23 06:03 Lab Results 02/19/23 02/19/23 02/19/23 Range/Units 15:58 15:58 15:58 WBC 10.2 (3.8-10.6) k/uL RBC 4.91 (4.30-5.90) m/uL Hgb 15.5 (13.0-17.5) gm/dL Hct 48.0 (39.0-53.0) % MCV 97.7 (80.0-100.0) fL MCH 31.6 (25.0-35.0) pg MCHC 32.3 (31.0-37.0) g/dL RDW 14.0 (11.5-15.5) % Plt Count 181 (150-450) k/uL MPV 8.1 Neutrophils % 62 % Lymphocytes % 29 % Monocytes % 5 % Eosinophils % 3 % Basophils % 0 % Neutrophils # 6.3 (1.3-7.7) k/uL Lymphocytes # 2.9 (1.0-4.8) k/uL Monocytes # 0.5 (0-1.0) k/uL Eosinophils # 0.3 (0-0.7) k/uL Basophils # 0.1 (0-0.2) k/uL PT 10.2 (9.0-12.0) sec INR 1.0 (<1.2) APTT 23.0 (22.0-30.0) sec Sodium 143 (137-145) mmol/L Potassium 4.3 (3.5-5.1) mmol/L Chloride 106 (98-107) mmol/L Carbon Dioxide 28 (22-30) mmol/L Anion Gap 9 mmol/L BUN 21 H (9-20) mg/dL Creatinine 0.77 (0.66-1.25) mg/dL Est GFR (CKD-EPI)AfAm >90 (>60 ml/min/1.73 sqM) Est GFR (CKD-EPI)NonAf >90 (>60 ml/min/1.73 sqM) Glucose 119 H (74-99) mg/dL Calcium 9.0 (8.4-10.2) mg/dL Phosphorus 4.1 (2.5-4.5) mg/dL Magnesium 2.1 (1.6-2.3) mg/dL Total Bilirubin 0.7 (0.2-1.3) mg/dL AST 24 (17-59) U/L ALT 27 (4-49) U/L Alkaline Phosphatase 184 H (38-126) U/L Troponin I (0.000-0.034) ng/mL NT-Pro-B Natriuret Pep pg/mL Total Protein 7.0 (6.3-8.2) g/dL Albumin 4.1 (3.5-5.0) g/dL TSH 1.520 (0.465-4.680) mIU/L 02/19/23 02/19/23 Range/Units 15:58 15:58 WBC (3.8-10.6) k/uL RBC (4.30-5.90) m/uL Hgb (13.0-17.5) gm/dL Hct (39.0-53.0) % MCV (80.0-100.0) fL MCH (25.0-35.0) pg MCHC (31.0-37.0) g/dL RDW (11.5-15.5) % Plt Count (150-450) k/uL MPV Neutrophils % % Lymphocytes % % Monocytes % % Eosinophils % % Basophils % % Neutrophils # (1.3-7.7) k/uL Lymphocytes # (1.0-4.8) k/uL Monocytes # (0-1.0) k/uL Eosinophils # (0-0.7) k/uL Basophils # (0-0.2) k/uL PT (9.0-12.0) sec INR (<1.2) APTT (22.0-30.0) sec Sodium (137-145) mmol/L Potassium (3.5-5.1) mmol/L Chloride (98-107) mmol/L Carbon Dioxide (22-30) mmol/L Anion Gap mmol/L BUN (9-20) mg/dL Creatinine (0.66-1.25) mg/dL Est GFR (CKD-EPI)AfAm (>60 ml/min/1.73 sqM) Est GFR (CKD-EPI)NonAf (>60 ml/min/1.73 sqM) Glucose (74-99) mg/dL Calcium (8.4-10.2) mg/dL Phosphorus (2.5-4.5) mg/dL Magnesium (1.6-2.3) mg/dL Total Bilirubin (0.2-1.3) mg/dL AST (17-59) U/L ALT (4-49) U/L Alkaline Phosphatase (38-126) U/L Troponin I <0.012 (0.000-0.034) ng/mL NT-Pro-B Natriuret Pep 523 pg/mL Total Protein (6.3-8.2) g/dL Albumin (3.5-5.0) g/dL TSH (0.465-4.680) mIU/L - EKG Data -: EKG Interpreted by Me (EKG is sinus rhythm 69 MS 137 QRS 110 QTc 427, interpreted by me) - Radiology Data Radiology results: report reviewed (Chest x-ray shows positive mild CHF), image reviewed Critical Care Time Critical Care Time: Yes Total Critical Care Time: 31 Disposition Clinical Impression: Systolic CHF, acute on chronic, Acute exacerbation of chronic obstructive airways disease, Acute bronchitis, Congestive heart failure, Chest pain, PVC (premature ventricular contraction), Bradycardia, Palpitations Disposition: ADMITTED IP TO THIS HOSP Condition: Fair Is patient prescribed a controlled substance at d/c from ED?: No Time of Disposition: 16:20
[2023-02-19] MEDS ORDERED: IPRATROPIUM-ALBUTEROL 3 ML NEB INHALATION STA (16:25)
[2023-02-19] MEDS ORDERED: DEXAMETHASONE SOD PHOSPHATE 10 MG/ML 1 ML VIAL IVP STA (16:25)
[2023-02-19] MEDS ORDERED: ONDANSETRON 4 MG/2 ML VIAL IVP PRN (16:27)
[2023-02-19] MEDS ORDERED: NALOXONE 0.4 MG/ML 1 ML VIAL IV PRN (16:27)
[2023-02-19] MEDS ORDERED: methylPREDNISolone SOD SUCCI 125 MG/2 ML VIAL IV STA (16:27)
[2023-02-19 16:49] LABS: Prothrombin Time 10.2 sec (9.0-12.0)
[2023-02-19 16:55] LABS: ALT 27 U/L (4-49); AST 24 U/L (17-59); African American GFR (CKD) >90 (>60 ml/min/1.73 sqM); Albumin 4.1 g/dL (3.5-5.0); Alkaline Phosphatase 184 U/L (38-126); Anion Gap 9 mmol/L; Blood Urea Nitrogen 21 mg/dL (9-20); Carbon Dioxide 28 mmol/L (22-30); Chloride 106 mmol/L (98-107); Glucose 119 mg/dL (74-99); Magnesium 2.1 mg/dL (1.6-2.3); Non-African American GFR(CKD) >90 (>60 ml/min/1.73 sqM); Phosphorus 4.1 mg/dL (2.5-4.5); Potassium 4.3 mmol/L (3.5-5.1); Sodium 143 mmol/L (137-145); Total Bilirubin 0.7 mg/dL (0.2-1.3)
[2023-02-19] MEDS: MORPHINE SULFATE 4 MG/ML SYRINGE IV PRN (16:57)
[2023-02-19 16:59] LABS: Basophils # (A) 0.1 k/uL (0-0.2); Basophils % (A) 0 %; Eosinophils # (A) 0.3 k/uL (0-0.7); Eosinophils % (A) 3 %; HGB 15.5 gm/dL (13.0-17.5); Lymphocytes # (A) 2.9 k/uL (1.0-4.8); Lymphocytes % (A) 29 %; MCH 31.6 pg (25.0-35.0); MCHC 32.3 g/dL (31.0-37.0); MCV 97.7 fL (80.0-100.0); Mean Platelet Volume 8.1; Monocytes # (A) 0.5 k/uL (0-1.0); Monocytes % (A) 5 %; Neutrophils # (A) 6.3 k/uL (1.3-7.7); Neutrophils % (A) 62 %; Platelet Count 181 k/uL (150-450); RBC 4.91 m/uL (4.30-5.90); WBC 10.2 k/uL (3.8-10.6)
[2023-02-19] MEDS: SODIUM CHLORIDE 0.9% 1,000 ML IV SCH (18:23)
[2023-02-19] MEDS: IPRATROPIUM-ALBUTEROL 3 ML NEB INHALATION SCH (20:40)
--- NOTE | 2023-02-19 21:18 | XR ---
EXAMINATION TYPE: XR chest 1V portable DATE OF EXAM: 02/19/2023 COMPARISON: 06/13/2022 INDICATION: Chest pain bradycardia TECHNIQUE: Single frontal view of the chest is obtained. FINDINGS: The heart size is mildly prominent. The pulmonary vasculature is upper limits for size. No suspicious focal consolidation is evident. Some minimal subsegmental atelectasis may be along the left diaphragm. IMPRESSION: 1. Suggestion of minimal subsegmental atelectasis left base. 2. Mild cardiomegaly
[2023-02-20] MEDS ORDERED: methylPREDNISolone SOD SUCCI 125 MG/2 ML VIAL IV SCH
[2023-02-20] MEDS: MORPHINE SULFATE 4 MG/ML SYRINGE IV PRN (02:31)
[2023-02-20] MEDS ORDERED: IPRATROPIUM-ALBUTEROL 3 ML NEB INHALATION PRN (05:16)
--- NOTE | 2023-02-20 05:32 | P.CNPUL ---
History of Present Illness Consult date: 02/20/23 Requesting physician: Yan Antunez Reason for consult: COPD Chief complaint: Shortness of breath History of present illness: I'm seeing this patient in new consultation today 02/20/2023 in the emergency room for suspected COPD exacerbation. Patient is a 62-year-old white male with past medical history significant for severe COPD, oxygen dependence normally maintained on 3 L/m nasal cannula, current 1 pack per day smoker, coronary artery disease and MIs with previous PCI, heart failure, previous TIAs and CVA, hyperlipidemia, hypertension, obstructive sleep apnea currently not compliant with CPAP, SLE and lupus nephritis on CellCept, GERD. Patient does follow office with Dr. Bone for management of his severe COPD. He's normally maintained on a combination of Trelegy and albuterol inhalers. Patient came into the emergency room yesterday afternoon, directed by his PCP Dr. Teran, apparently after being found bradycardic and hypoxic. Patient has been more short of breath lately. He admits to cough with brown sputum production and occasional hemoptysis. He denies any fevers, chills. He's also has occasional left-sided chest pain that does not radiate. No chest pain currently. No palpitations, lightheadedness, syncope, orthopnea, increased lower extremity deborah ma. Patient is currently sitting at the edge of the stretcher, on 2 L nasal cannula, in no acute distress. Chest x-ray on arrival shows minimal subsegmental atelectasis at the left base and mild cardiomegaly. No focal consolidation or evidence of pneumonia. CBC and CMP were fairly unremarkable. EKG on arrival showed normal sinus rhythm with bigeminal PVCs. Troponins negative 3. NT proBNP low at 523. Vital signs are stable at this time. Review of Systems REVIEW OF SYSTEMS: CONSTITUTIONAL: Denies any recent significant weight loss or weight gain. EYES: Denies change in vision. EARS, NOSE, MOUTH, THROAT: Denies headaches, denies sore throat. CARDIOVASCULAR: See HPI RESPIRATORY: See HPI GASTROINTESTINAL: Denies change in appetite, abdominal pain, nausea and vomiting, or diarrhea GENITOURINARY: Denies hematuria, denies infections. MUSKULOSKELETAL: Denies pain, admits some chronic lower extremity swelling. Also reports recent ankle surgery INTEGUMENTARY: Denies rash, denies eczema. NEUROLOGICAL: Denies recent memory loss, no recent seizure activity. PSYCHIATRIC: Denies anxiety, denies depression. HEMATOLOGIC/LYMPHATIC: Denies anemia, denies enlarged lymph node Past Medical History Past Medical History: Asthma, Coronary Artery Disease (CAD), Chest Pain / Angina, Heart Failure, COPD, CVA/TIA, GERD/Reflux, Hyperlipidemia, Hypertension, Myocardial Infarction (HI), Osteoarthritis (OA), Pneumonia, Renal Disease, Seizure Disorder, Sleep Apnea/CPAP/BIPAP Additional Past Medical History / Comment(s): last seizure - 2014, hiatal hernia, chronic back pain, 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, lupus, continuous oxygen use at 3L, no cpap used, kidney failure with hemodilaysis in the past, 3 HI's, hypoglycemia Last Myocardial Infarction Date:: 2015 History of Any Multi-Drug Resistant Organisms: None Reported Past Surgical History: Cholecystectomy, Heart Catheterization, Heart Catheterization With Stent, Tonsillectomy Additional Past Surgical History / Comment(s): STATES 7 cardiac stents, neck surgery, upper and lower scopes, spine surgery, pain procedures, Past Anesthesia/Blood Transfusion Reactions: No Reported Reaction Additional Past Anesthesia/Blood Transfusion Reaction / Comment(s): blood transfusion-no reaction, unknown family hx per spouse Date of Last Stent Placement:: 2021 Past Psychological History: Anxiety, Depression Smoking Status: Current every day smoker Past Alcohol Use History: None Reported Past Drug Use History: None Reported - Past Family History Father Family Medical History: Myocardial Infarction (HI) Additional Family Medical History / Comment(s): Father had a HI at the age of 56yrs. Mother Family Medical History: Asthma, Cancer, COPD Additional Family Medical History / Comment(s): Mother had lung cancer. Medications and Allergies Home Medications Medication Instructions Recorded Confirmed Type PARoxetine [Paxil] 20 mg PO DAILY 05/21/16 02/19/23 History Phenytoin Sodium Extended 200 mg PO BID 05/21/16 02/19/23 History [Dilantin] Clopidogrel Bisulfate [Clopidogrel] 75 mg PO DAILY 05/22/16 02/19/23 History rOPINIRole HCL [Requip] 1 mg PO BID 08/30/16 02/19/23 History Theophylline Anhydrous 400 mg PO DAILY 10/03/17 02/19/23 History [Theophylline] Montelukast [Singulair] 10 mg PO DAILY 02/04/18 02/19/23 History Nitroglycerin Sl Tabs [Nitrostat] 0.4 mg SUBLINGUAL Q5M PRN 02/04/18 02/19/23 History Potassium Chloride [Klor-Con 20] 30 meq PO DAILY 02/04/18 02/19/23 History allopurinoL [Zyloprim] 100 mg PO DAILY 02/04/18 02/19/23 History mycophenolate mofetiL [Cellcept] 500 mg PO DAILY 08/05/19 02/19/23 History Famotidine 20 mg PO DAILY 05/12/20 02/19/23 History Valproic Acid [Depakene] 250 mg PO BID 08/07/21 02/19/23 History Pregabalin [Lyrica] 200 mg PO TID #9 cap 11/18/22 02/19/23 Rx modafiniL [Provigil] 200 mg PO DAILY #3 tab 11/18/22 02/19/23 Rx Amitriptyline HCl [Elavil] 25 mg PO HS 02/19/23 02/19/23 History Atorvastatin [Lipitor] 20 mg PO DAILY 02/19/23 02/19/23 History Divalproex Sodium 250 mg PO BID 02/19/23 02/19/23 History Fluticasone/Umeclidin/Vilanter 1 puff INHALATION RT-DAILY 02/19/23 02/19/23 History [Trelegy Ellipta 100-62.5-25] Furosemide [Lasix] 40 mg PO BID 02/19/23 02/19/23 History Isosorbide Mononitrate ER [Imdur] 60 mg PO DAILY 02/19/23 02/19/23 History Magnesium Oxide [Mag-Ox] 400 mg PO Q48H 02/19/23 02/19/23 History Metformin Er 1,500 mg PO W/SUPPER 02/19/23 02/19/23 History Metoprolol Tartrate [Lopressor] 25 mg PO BID 02/19/23 02/19/23 History Sucralfate [Carafate] 1 gm PO AC-BID 02/19/23 02/19/23 History Tiotropium [place] [Spiriva] 1 puff INHALATION RT-DAILY 02/19/23 02/19/23 History oxyCODONE-APAP 10-325MG [Percocet 1 tab PO Q8HR PRN 02/19/23 02/19/23 History 10-325 mg] predniSONE 10 mg PO DAILY 02/19/23 02/19/23 History Allergies Allergy/AdvReac Type Severity Reaction Status Date / Time Penicillins Allergy Severe Swelling Verified 02/19/23 17:33 ibuprofen [From Motrin] Allergy Rash/Hives Verified 02/19/23 17:33 Iodinated Contrast Media Allergy Swelling Verified 02/19/23 17:33 [Iodinated Contrast- Oral and IV Dye] iodine Allergy Itching, Verified 02/19/23 17:33 Hives phenobarbital AdvReac Drowsiness Verified 02/19/23 17:33 Physical Exam Vitals: Vital Signs Temp Pulse Pulse Resp BP Pulse Ox 02/20/23 03:45 77 18 138/64 93 L 02/20/23 02:32 67 15 138/64 92 L 02/20/23 00:45 66 12 96/80 92 L 02/19/23 22:17 65 19 120/70 92 L 02/19/23 20:47 66 02/19/23 20:43 61 02/19/23 20:21 63 20 120/70 94 L 02/19/23 18:32 65 14 126/60 92 L 02/19/23 17:39 63 02/19/23 17:21 59 L 02/19/23 15:50 35 L 02/19/23 15:44 98.5 F 36 L 15 126/60 98 Intake and Output 02/19/23 02/19/23 02/20/23 14:59 22:59 06:59 Other: Weight 99.79 kg GENERAL EXAM: Alert, 60-year-old white male, comfortable in no apparent distress. HEAD: Normocephalic and atraumatic EYES: Normal reaction of pupils, equal size. NOSE: Clear with pink turbinates. THROAT: No erythema or exudates. NECK: No masses, no JVD. CHEST: No chest wall deformity. LUNGS: Equal air entry with faint expiratory wheezes and right lower lobe crackles. On 2 L nasal cannula. No conversational dyspnea or accessory muscle use.. CVS: S1 and S2 normal with systolic ejection murmur grade 2, regular rhythm. No other extra heart sounds ABDOMEN: Obese abdomen, No hepatosplenomegaly, active bowel sounds, no guarding or rigidity. SPINE: No scoliosis or deformity SKIN: No rashes CENTRAL NERVOUS SYSTEM: No focal deficits, tone is normal in all 4 extremities. EXTREMITIES: There is moderate nonpitting bilateral lower extremity peripheral edema. No clubbing, or cyanosis. Peripheral pulses are intact. Results - Laboratory Findings CBC and BMP: 02/19/23 15:58 02/19/23 15:58 PT/INR, D-dimer PT 10.2 sec (9.0-12.0) 02/19/23 15:58 INR 1.0 (<1.2) 02/19/23 15:58 Abnormal lab findings: Abnormal Labs 02/19/23 15:58 BUN 21 H Glucose 119 H Alkaline Phosphatase 184 H - Diagnostic Findings Chest x-ray: image reviewed Assessment and Plan Assessment: Acute COPD exacerbation, normally maintained on a combination of Trelegy and albuterol inhalers. Chest x-ray on arrival shows minimal subsegmental atelectasis at the left base and mild cardiomegaly. No focal consolidation or evidence of pneumonia. Chronic hypoxemic respiratory failure, normally maintained on 3 L nasal cannula. Bradycardia, found to be in normal sinus rhythm with bigeminal PVCs. Obstructive sleep apnea, was previously compliant with CPAP. Coronary artery disease, with previous myocardial infarction and PCI. Hypertension Hyperlipidemia History of CVA History of CHF Systemic lupus erythematosus, along with history of lupus nephritis, currently on CellCept Chronic nicotine dependence, current 1 pack per day smoker Plan: Patient's medications, labs, chest x-ray reviewed Continue supplemental oxygen Start patient on a combination of Symbicort inhaler, DuoNeb's, and IV Solu- Medrol Empiric antibiotics Check procalcitonin level Cardiology was consulted Nicotine replacement offered Ongoing smoking cessation education performed We will continue to follow I have personally seen and examined the patient, performed the documentation and the assessment and plan as written. Number of minutes spent on the visit:20 Time with Patient: Greater than 30
[2023-02-20] MEDS: SODIUM CHLORIDE 0.9% 1,000 ML IV SCH (05:57)
[2023-02-20 06:43] LABS: Basophils % (A) 0 %; Eosinophils % (A) 0 %; HCT 47.6 % (39.0-53.0); HGB 15.8 gm/dL (13.0-17.5); Lymphocytes # (A) 1.3 k/uL (1.0-4.8); Lymphocytes % (A) 13 %; MCH 32.8 pg (25.0-35.0); MCHC 33.2 g/dL (31.0-37.0); MCV 98.9 fL (80.0-100.0); Mean Platelet Volume 8.2; Monocytes # (A) 0.3 k/uL (0-1.0); Monocytes % (A) 3 %; Neutrophils # (A) 8.5 k/uL (1.3-7.7); Neutrophils % (A) 84 %; Platelet Count 175 k/uL (150-450); RBC 4.82 m/uL (4.30-5.90); RDW 13.8 % (11.5-15.5); WBC 10.2 k/uL (3.8-10.6)
[2023-02-20 07:01] LABS: ALT 35 U/L (4-49); AST 31 U/L (17-59); African American GFR (CKD) >90 (>60 ml/min/1.73 sqM); Albumin 4.2 g/dL (3.5-5.0); Alkaline Phosphatase 190 U/L (38-126); Anion Gap 10 mmol/L; Blood Urea Nitrogen 24 mg/dL (9-20); Carbon Dioxide 28 mmol/L (22-30); Chloride 101 mmol/L (98-107); Glucose 228 mg/dL (74-99); Magnesium 2.2 mg/dL (1.6-2.3); Non-African American GFR(CKD) >90 (>60 ml/min/1.73 sqM); Phosphorus 3.3 mg/dL (2.5-4.5); Potassium 4.8 mmol/L (3.5-5.1); Sodium 139 mmol/L (137-145); Total Bilirubin 0.5 mg/dL (0.2-1.3)
[2023-02-20] MEDS: methylPREDNISolone SOD SUCCI 125 MG/2 ML VIAL IV SCH ×3 (08:16→18:15)
[2023-02-20] MEDS: SYMBICORT 160-4.5 MCG INHALER INHALATION SCH ×2 (09:55→19:44)
[2023-02-20] MEDS: IPRATROPIUM-ALBUTEROL 3 ML NEB INHALATION SCH ×4 (09:55→19:32)
[2023-02-20] MEDS: DOXYCYCLINE 100 MG CAP PO SCH ×2 (09:57→22:53)
[2023-02-20] MEDS: NICOTINE 21MG/24HR PATCH TRANSDERM SCH (09:57)
[2023-02-20] MEDS ORDERED: NITROGLYCERIN SL TABS 0.4 MG TAB SUBLINGUAL PRN (10:15)
[2023-02-20] MEDS: FAMOTIDINE 20 MG TAB PO SCH (11:01)
[2023-02-20] MEDS: CLOPIDOGREL 75 MG TAB PO SCH (11:01)
[2023-02-20] MEDS: ISOSORBIDE MONONITRATE ER 60 MG TAB.ER.24H PO SCH (11:01)
[2023-02-20] MEDS: ATORVASTATIN 20 MG TAB PO SCH (11:01)
[2023-02-20] MEDS: FUROSEMIDE 40 MG TAB PO SCH ×2 (11:01→15:40)
[2023-02-20] MEDS: allopurinoL 100 MG TAB PO SCH (11:01)
[2023-02-20] MEDS: MONTELUKAST 10 MG TAB PO SCH (11:02)
[2023-02-20] MEDS: PARoxetine 20 MG TAB PO SCH (11:02)
[2023-02-20] MEDS: PHENYTOIN SODIUM EXTENDED 100 MG CAP PO SCH ×2 (11:03→21:34)
[2023-02-20] MEDS: THEOPHYLLINE 24 HOUR 400 MG CAP.ER.24H PO SCH (11:03)
[2023-02-20] MEDS: PREGABALIN 100 MG CAP PO SCH ×3 (11:03→22:52)
[2023-02-20] MEDS: VALPROIC ACID ORAL SOLN 250 MG/5 ML CUP PO SCH ×2 (11:03→21:34)
[2023-02-20] MEDS: POTASSIUM CHLORIDE ER 10 MEQ TAB.ER.PRT PO SCH (11:03)
[2023-02-20] MEDS: oxyCODONE-APAP 10-325MG 1 EACH TAB PO PRN ×2 (11:04→18:17)
[2023-02-20] MEDS: DIVALPROEX 250 MG TABLET.DR PO SCH ×2 (11:04→21:34)
--- NOTE | 2023-02-20 11:05 | P.HPIM ---
History of Present Illness H&P Date: 02/20/23 Chief Complaint: Bradycardia and shortness of breath This is a 62-year-old male well-known to me. He has significant oxygen dependent COPD. He continues to smoke probably 1/2-1 pack a day. He reports increasing cough. He states at the site of the previous trach left neck if he pushes in that area he is able to cough up more productive mucus and is concerned about pocket in that area. He also was found to be bradycardic in the office of the heart rate in the 30s. It is ongoing hypoxia and bradycardia, EMS was called to my office for emergency room. He was found to have slightly better heart rate at that time in the 50s. He continues to be short of breath and was admitted for further treatment acute COPD and bradycardia. Scoring is resting comfortably in overflow in the ICU as a stepdown bed is unavailable. He is okay at rest. Does complain of back pain today which is this is chronic for him. Review of Systems All systems: negative Past Medical History Past Medical History: Asthma, Coronary Artery Disease (CAD), Chest Pain / Angina, Heart Failure, COPD, CVA/TIA, GERD/Reflux, Hyperlipidemia, Hypertension, Myocardial Infarction (ID), Osteoarthritis (OA), Pneumonia, Renal Disease (Lupus nephritis), Seizure Disorder, Sleep Apnea/CPAP/BIPAP Additional Past Medical History / Comment(s): last seizure - 2014, hiatal hernia, chronic back pain, 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, lupus, continuous oxygen use at 3L, no cpap used, kidney failure with hemodilaysis in the past, 3 ID's, hypoglycemia Last Myocardial Infarction Date:: 2015 History of Any Multi-Drug Resistant Organisms: None Reported Past Surgical History: Cholecystectomy, Heart Catheterization, Heart Catheterization With Stent, Tonsillectomy Additional Past Surgical History / Comment(s): STATES 7 cardiac stents, neck surgery, upper and lower scopes, spine surgery, pain procedures, Past Anesthesia/Blood Transfusion Reactions: No Reported Reaction Additional Past Anesthesia/Blood Transfusion Reaction / Comment(s): blood transfusion-no reaction, unknown family hx per spouse Date of Last Stent Placement:: 2021 Past Psychological History: Anxiety, Depression Smoking Status: Current every day smoker Past Alcohol Use History: None Reported Past Drug Use History: None Reported - Past Family History Father Family Medical History: Myocardial Infarction (ID) Additional Family Medical History / Comment(s): Father had a ID at the age of 56yrs. Mother Family Medical History: Asthma, Cancer, COPD Additional Family Medical History / Comment(s): Mother had lung cancer. Medications and Allergies Home Medications Medication Instructions Recorded Confirmed Type PARoxetine [Paxil] 20 mg PO DAILY 05/21/16 02/19/23 History Phenytoin Sodium Extended 200 mg PO BID 05/21/16 02/19/23 History [Dilantin] Clopidogrel Bisulfate [Clopidogrel] 75 mg PO DAILY 05/22/16 02/19/23 History rOPINIRole HCL [Requip] 1 mg PO BID 08/30/16 02/19/23 History Theophylline Anhydrous 400 mg PO DAILY 10/03/17 02/19/23 History [Theophylline] Montelukast [Singulair] 10 mg PO DAILY 02/04/18 02/19/23 History Nitroglycerin Sl Tabs [Nitrostat] 0.4 mg SUBLINGUAL Q5M PRN 02/04/18 02/19/23 History Potassium Chloride [Klor-Con 20] 30 meq PO DAILY 02/04/18 02/19/23 History allopurinoL [Zyloprim] 100 mg PO DAILY 02/04/18 02/19/23 History mycophenolate mofetiL [Cellcept] 500 mg PO DAILY 08/05/19 02/19/23 History Famotidine 20 mg PO DAILY 05/12/20 02/19/23 History Valproic Acid [Depakene] 250 mg PO BID 08/07/21 02/19/23 History Pregabalin [Lyrica] 200 mg PO TID #9 cap 11/18/22 02/19/23 Rx modafiniL [Provigil] 200 mg PO DAILY #3 tab 11/18/22 02/19/23 Rx Amitriptyline HCl [Elavil] 25 mg PO HS 02/19/23 02/19/23 History Atorvastatin [Lipitor] 20 mg PO DAILY 02/19/23 02/19/23 History Divalproex Sodium 250 mg PO BID 02/19/23 02/19/23 History Fluticasone/Umeclidin/Vilanter 1 puff INHALATION RT-DAILY 02/19/23 02/19/23 History [Trelegy Ellipta 100-62.5-25] Furosemide [Lasix] 40 mg PO BID 02/19/23 02/19/23 History Isosorbide Mononitrate ER [Imdur] 60 mg PO DAILY 02/19/23 02/19/23 History Magnesium Oxide [Mag-Ox] 400 mg PO Q48H 02/19/23 02/19/23 History Metformin Er 1,500 mg PO W/SUPPER 02/19/23 02/19/23 History Metoprolol Tartrate [Lopressor] 25 mg PO BID 02/19/23 02/19/23 History Sucralfate [Carafate] 1 gm PO AC-BID 02/19/23 02/19/23 History Tiotropium [place] [Spiriva] 1 puff INHALATION RT-DAILY 02/19/23 02/19/23 History oxyCODONE-APAP 10-325MG [Percocet 1 tab PO Q8HR PRN 02/19/23 02/19/23 History 10-325 mg] predniSONE 10 mg PO DAILY 02/19/23 02/19/23 History Allergies Allergy/AdvReac Type Severity Reaction Status Date / Time Penicillins Allergy Severe Swelling Verified 02/19/23 17:33 ibuprofen [From Motrin] Allergy Rash/Hives Verified 02/19/23 17:33 Iodinated Contrast Media Allergy Swelling Verified 02/19/23 17:33 [Iodinated Contrast- Oral and IV Dye] iodine Allergy Itching, Verified 02/19/23 17:33 Hives phenobarbital AdvReac Drowsiness Verified 02/19/23 17:33 Physical Exam Vitals: Vital Signs Temp Pulse Pulse Resp BP Pulse Ox 02/20/23 10:05 68 18 02/20/23 09:55 61 18 96 02/20/23 08:39 98.2 F 54 L 18 132/70 94 L 02/20/23 08:09 58 L 22 135/105 95 02/20/23 07:20 98.3 F 71 22 119/71 94 L 02/20/23 06:10 62 18 96 02/20/23 05:43 59 L 18 146/71 94 L 02/20/23 03:45 77 18 138/64 93 L 02/20/23 02:32 67 15 138/64 92 L 02/20/23 00:45 66 12 96/80 92 L 02/19/23 22:17 65 19 120/70 92 L 02/19/23 20:47 66 02/19/23 20:43 61 02/19/23 20:21 63 20 120/70 94 L 02/19/23 18:32 65 14 126/60 92 L 02/19/23 17:39 63 02/19/23 17:21 59 L 02/19/23 15:50 35 L 02/19/23 15:44 98.5 F 36 L 15 126/60 98 Intake and Output 02/19/23 02/20/23 02/20/23 22:59 06:59 14:59 Other: # Voids 1 Weight 99.79 kg GENERAL: fatigued male with O2 via NC in place in no acute distress. HEAD: Atraumatic, normocephalic. EYES: Pupils equal round and reactive to light, extraocular movements intact, sclera anicteric, conjunctiva are normal. ENT:nares patent, oropharynx clear without exudates. Moist mucous membranes. NECK: Normal range of motion, supple without lymphadenopathy or JVD, no thyromegaly LUNGS:diminished and coarse with no active ronchi minimal wheeze HEART: Bradycardic rate and rhythm without murmurs, rubs or gallops.S1S2 Normal ABDOMEN: Soft, nontender, normoactive bowel sounds. No guarding, no rebound. No masses appreciated. EXTREMITIES: Normal range of motion, no pitting or edema. No clubbing or cyanosis. NEUROLOGICAL: Cranial nerves II through XII grossly intact. Normal speech, normal gait. PSYCH: Normal mood, normal affect. SKIN:right leg surgery site is healed but mildly edematous Results CBC & Chem 7: 02/20/23 05:53 02/20/23 05:53 Labs: Abnormal Lab Results - Last 24 Hours (Table) 02/19/23 02/20/23 02/20/23 Range/Units 15:58 05:53 05:53 Neutrophils # 8.5 H (1.3-7.7) k/uL BUN 21 H 24 H (9-20) mg/dL Creatinine 0.64 L (0.66-1.25) mg/dL Glucose 119 H 228 H (74-99) mg/dL Alkaline Phosphatase 184 H 190 H (38-126) U/L Chest x-ray: report reviewed Thrombosis Risk Factor Assmnt - DVT/VTE Prophylaxis DVT/VTE Prophylaxis: Mechanical Prophylaxis ordered (possible hemoptysis) - Choose All That Apply Each Factor Represents 1 point: Abnormal pulmonary function (COPD), Obesity (BMI >25), Swollen legs (current) Each Risk Factor Represents 2 Points: Age 61-74 years Thrombosis Risk Factor Assessment Total Risk Factor Score: 5 Thrombosis Risk Factor Assessment Level: High Risk Assessment and Plan (1) Chronic systolic (congestive) heart failure Current Visit: Yes Status: Acute Code(s): I50.22 - CHRONIC SYSTOLIC (CONGESTIVE) HEART FAILURE SNOMED Code(s): 172239415 (2) Acute bronchitis Current Visit: Yes Status: Acute Code(s): J20.9 - ACUTE BRONCHITIS, UNSPECIFIED SNOMED Code(s): 60507971 (3) Acute exacerbation of chronic obstructive airways disease Current Visit: Yes Status: Acute Code(s): J44.1 - CHRONIC OBSTRUCTIVE PULMONARY DISEASE W (ACUTE) EXACERBATION SNOMED Code(s): 713601855 (4) Bradycardia Current Visit: Yes Status: Acute Code(s): R00.1 - BRADYCARDIA, UNSPECIFIED SNOMED Code(s): 76148355 (5) Chronic kidney disease Current Visit: No Status: Acute Code(s): N18.9 - CHRONIC KIDNEY DISEASE, UNSPECIFIED SNOMED Code(s): 917641310 (6) Chronic low back pain Current Visit: No Status: Acute Code(s): M54.5 - LOW BACK PAIN * DO NOT USE *; G89.29 - OTHER CHRONIC PAIN SNOMED Code(s): 117517431 (7) Chronic respiratory failure Current Visit: No Status: Acute Code(s): J96.10 - CHRONIC RESPIRATORY FAILURE, UNSP W HYPOXIA OR HYPERCAPNIA SNOMED Code(s): 89902385 (8) Degenerative disc disease, lumbar Current Visit: No Status: Acute Code(s): M51.36 - OTHER INTERVERTEBRAL DISC DEGENERATION, LUMBAR REGION SNOMED Code(s): 09134382 (9) Ischemic heart disease Current Visit: No Status: Acute Code(s): I25.9 - CHRONIC ISCHEMIC HEART DISEASE, UNSPECIFIED SNOMED Code(s): 817675899 (10) senior care (current) use of opiate analgesic Current Visit: No Status: Acute Code(s): Z79.891 - NEWS INTERN (CURRENT) USE OF OPIATE ANALGESIC SNOMED Code(s): 932734907 (11) Long-term use of immunosuppressant medication Current Visit: No Status: Acute Code(s): Z79.899 - OTHER NEWS INTERN (CURRENT) DRUG THERAPY SNOMED Code(s): 769104473 (12) Lupus nephritis Current Visit: No Status: Acute Code(s): M32.14 - GLOMERULAR DISEASE IN SYSTEMIC LUPUS ERYTHEMATOSUS SNOMED Code(s): 33879674 (13) Nicotine dependence Current Visit: No Status: Acute Code(s): F17.200 - NICOTINE DEPENDENCE, UNSPECIFIED, UNCOMPLICATED SNOMED Code(s): 38320823 Plan: resume home meds, check labs in am, wait on cardiology and pulmonology consults continue O2, he will be reevaulated in 24 hours
[2023-02-20] MEDS: SUCRALFATE 1 GM TAB PO SCH ×2 (11:10→16:57)
--- NOTE | 2023-02-20 11:53 | P.CRDCN ---
History of Present Illness Consult date: 02/20/23 Chief complaint: Shortness of breath History of present illness: The patient is a 62-year-old gentleman with CAD and prior stenting of the RCA an d LAD as well as hypertension and dyslipidemia and smoking and chronic hypoxic respiratory failure secondary to chronic obstructive pulmonary disease who was referred from his primary care physician to the hospital for further evaluation of shortness of breath and bradycardia. The patient was seen yesterday at Dr. Teran office for routine follow-up visit. He was found to be bradycardic with heart rate in the 30s. For that reason and because was called and the patient was brought to the emergency department. During his hospital stay he has been maintaining heart rate in the 40s and 50s. He was receiving beta himanshu. He reports no cardiovascular symptoms related to bradycardia including dizziness or lightheadedness or presyncope or syncope. Beside that he reports no pain in the chest. He does have shortness of breath with exertion according to him has been his baseline and unchanged compared to before. No fever and no chills. He underwent further evaluation including an EKG and that showed sinus mechanism was PVC. Troponin was checked at 3 sets and that came in to be un remarkable. The rest of the blood work overall is unremarkable. Currently pulmonary and critical care services on the case and he is getting treated for COPD. He was receiving metoprolol which we are going to hold at this point. Also will obtain a TSH and free T4 to rule out any thyroid disease related to bradycardia. So far the patient has been maintaining heart rate in the 40s as well as in the 50s on beta himanshu. The last echocardiogram was performed in 2020 showing preserved biventricular dimension and systolic function was no significant valvular abnormalities The examination is remarkable for regular rhythm with systolic murmur at the right upper sternal border and diminished breathing sounds bilaterally and no lower extremity edema noted beside that he does have a bradycardia with heart rate in the 40s and 50s Assessment Bradycardia, asymptomatic Premature ventricular contraction Chronic obstructive pulmonary disease CAD with previous stenting Hypertension Dyslipidemia Smoking Plan Avoid any AV erika himanshu agents DC metoprolol Continue monitor the heart rate Rule out reversible causes of bradycardia Obtain TSH and free T4 Follow-up with the patient Past Medical History Past Medical History: Asthma, Coronary Artery Disease (CAD), Chest Pain / Angina, Heart Failure, COPD, CVA/TIA, GERD/Reflux, Hyperlipidemia, Hypertension, Myocardial Infarction (NV), Osteoarthritis (OA), Pneumonia, Renal Disease, Seizure Disorder, Sleep Apnea/CPAP/BIPAP Additional Past Medical History / Comment(s): last seizure - 2014, hiatal hernia, chronic back pain, 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, lupus, continuous oxygen use at 3L, no cpap used, kidney failure with hemodilaysis in the past, 3 NV's, hypoglycemia Last Myocardial Infarction Date:: 2015 History of Any Multi-Drug Resistant Organisms: None Reported Past Surgical History: Cholecystectomy, Heart Catheterization, Heart Catheterization With Stent, Tonsillectomy Additional Past Surgical History / Comment(s): STATES 7 cardiac stents, neck surgery, upper and lower scopes, spine surgery, pain procedures, Past Anesthesia/Blood Transfusion Reactions: No Reported Reaction Additional Past Anesthesia/Blood Transfusion Reaction / Comment(s): blood transfusion-no reaction, unknown family hx per spouse Date of Last Stent Placement:: 2021 Past Psychological History: Anxiety, Depression Additional Psychological History / Comment(s): Pt resides with his spouse who is very helpful. He had very recent hospitalization and was to establish with [facility] home care. Pt uses a cane or rollator walker. He has home oxygen. Pt drives. Pt is a diabetic but does not have a glucometer. Smoking Status: Current every day smoker Past Alcohol Use History: None Reported Additional Past Alcohol Use History / Comment(s): Pt started smoking in 1971 and was a 6 ppd smoker. He is now a 1/2 ppd smoker. Past Drug Use History: None Reported - Past Family History Father Family Medical History: Myocardial Infarction (NV) Additional Family Medical History / Comment(s): Father had a NV at the age of 56yrs. Mother Family Medical History: Asthma, Cancer, COPD Additional Family Medical History / Comment(s): Mother had lung cancer. Medications and Allergies Home Medications Medication Instructions Recorded Confirmed Type PARoxetine [Paxil] 20 mg PO DAILY 05/21/16 02/19/23 History Phenytoin Sodium Extended 200 mg PO BID 05/21/16 02/19/23 History [Dilantin] Clopidogrel Bisulfate [Clopidogrel] 75 mg PO DAILY 05/22/16 02/19/23 History rOPINIRole HCL [Requip] 1 mg PO BID 08/30/16 02/19/23 History Theophylline Anhydrous 400 mg PO DAILY 10/03/17 02/19/23 History [Theophylline] Montelukast [Singulair] 10 mg PO DAILY 02/04/18 02/19/23 History Nitroglycerin Sl Tabs [Nitrostat] 0.4 mg SUBLINGUAL Q5M PRN 02/04/18 02/19/23 History Potassium Chloride [Klor-Con 20] 30 meq PO DAILY 02/04/18 02/19/23 History allopurinoL [Zyloprim] 100 mg PO DAILY 02/04/18 02/19/23 History mycophenolate mofetiL [Cellcept] 500 mg PO DAILY 08/05/19 02/19/23 History Famotidine 20 mg PO DAILY 05/12/20 02/19/23 History Valproic Acid [Depakene] 250 mg PO BID 08/07/21 02/19/23 History Pregabalin [Lyrica] 200 mg PO TID #9 cap 11/18/22 02/19/23 Rx modafiniL [Provigil] 200 mg PO DAILY #3 tab 11/18/22 02/19/23 Rx Amitriptyline HCl [Elavil] 25 mg PO HS 02/19/23 02/19/23 History Atorvastatin [Lipitor] 20 mg PO DAILY 02/19/23 02/19/23 History Divalproex Sodium 250 mg PO BID 02/19/23 02/19/23 History Fluticasone/Umeclidin/Vilanter 1 puff INHALATION RT-DAILY 02/19/23 02/19/23 History [Trelegy Ellipta 100-62.5-25] Furosemide [Lasix] 40 mg PO BID 02/19/23 02/19/23 History Isosorbide Mononitrate ER [Imdur] 60 mg PO DAILY 02/19/23 02/19/23 History Magnesium Oxide [Mag-Ox] 400 mg PO Q48H 02/19/23 02/19/23 History Metformin Er 1,500 mg PO W/SUPPER 02/19/23 02/19/23 History Metoprolol Tartrate [Lopressor] 25 mg PO BID 02/19/23 02/19/23 History Sucralfate [Carafate] 1 gm PO AC-BID 02/19/23 02/19/23 History Tiotropium [place] [Spiriva] 1 puff INHALATION RT-DAILY 02/19/23 02/19/23 History oxyCODONE-APAP 10-325MG [Percocet 1 tab PO Q8HR PRN 02/19/23 02/19/23 History 10-325 mg] predniSONE 10 mg PO DAILY 02/19/23 02/19/23 History Allergies Allergy/AdvReac Type Severity Reaction Status Date / Time Penicillins Allergy Severe Swelling Verified 02/19/23 17:33 ibuprofen [From Motrin] Allergy Rash/Hives Verified 02/19/23 17:33 Iodinated Contrast Media Allergy Swelling Verified 02/19/23 17:33 [Iodinated Contrast- Oral and IV Dye] iodine Allergy Itching, Verified 02/19/23 17:33 Hives phenobarbital AdvReac Drowsiness Verified 02/19/23 17:33 Physical Exam Vitals: Vital Signs Temp Pulse Pulse Resp BP Pulse Ox 02/20/23 10:05 68 18 02/20/23 09:55 61 18 96 02/20/23 08:39 98.2 F 54 L 18 132/70 94 L 02/20/23 08:09 58 L 22 135/105 95 02/20/23 07:20 98.3 F 71 22 119/71 94 L 02/20/23 06:10 62 18 96 02/20/23 05:43 59 L 18 146/71 94 L 02/20/23 03:45 77 18 138/64 93 L 02/20/23 02:32 67 15 138/64 92 L 02/20/23 00:45 66 12 96/80 92 L 02/19/23 22:17 65 19 120/70 92 L 02/19/23 20:47 66 02/19/23 20:43 61 02/19/23 20:21 63 20 120/70 94 L 02/19/23 18:32 65 14 126/60 92 L 02/19/23 17:39 63 02/19/23 17:21 59 L 02/19/23 15:50 35 L 02/19/23 15:44 98.5 F 36 L 15 126/60 98 Intake and Output 02/19/23 02/20/23 02/20/23 22:59 06:59 14:59 Other: # Voids 1 Weight 99.79 kg 99.79 kg Results 02/20/23 05:53 05/25/23 05:53 Cardiac Enzymes 02/19/23 02/19/23 02/19/23 Range/Units 15:58 15:58 19:20 AST 24 (17-59) U/L Troponin I <0.012 <0.012 (0.000-0.034) ng/mL 02/19/23 02/20/23 Range/Units 21:41 05:53 AST 31 (17-59) U/L Troponin I <0.012 (0.000-0.034) ng/mL Coagulation 02/19/23 Range/Units 15:58 PT 10.2 (9.0-12.0) sec APTT 23.0 (22.0-30.0) sec CBC 02/19/23 02/20/23 Range/Units 15:58 05:53 WBC 10.2 10.2 (3.8-10.6) k/uL RBC 4.91 4.82 (4.30-5.90) m/uL Hgb 15.5 15.8 (13.0-17.5) gm/dL Hct 48.0 47.6 (39.0-53.0) % Plt Count 181 175 (150-450) k/uL Comprehensive Metabolic Panel 02/19/23 02/20/23 Range/Units 15:58 05:53 Sodium 143 139 (137-145) mmol/L Potassium 4.3 4.8 (3.5-5.1) mmol/L Chloride 106 101 (98-107) mmol/L Carbon Dioxide 28 28 (22-30) mmol/L BUN 21 H 24 H (9-20) mg/dL Creatinine 0.77 0.64 L (0.66-1.25) mg/dL Glucose 119 H 228 H (74-99) mg/dL Calcium 9.0 9.0 (8.4-10.2) mg/dL AST 24 31 (17-59) U/L ALT 27 35 (4-49) U/L Alkaline Phosphatase 184 H 190 H (38-126) U/L Total Protein 7.0 7.0 (6.3-8.2) g/dL Albumin 4.1 4.2 (3.5-5.0) g/dL Current Medications Generic Name Dose Route Start Last Admin Trade Name Freq PRN Reason Stop Dose Admin Albuterol/Ipratropium 3 ml 02/19/23 20:00 02/20/23 09:55 Ipratropium-Albuterol 3 Ml Neb INHALATION 3 ml RT-QID KAZ Administration Albuterol/Ipratropium 3 ml 02/20/23 05:16 Ipratropium-Albuterol 3 Ml Neb INHALATION RT-Q2H PRN Shortness Of Breath Or Wheezing Allopurinol 100 mg 02/20/23 10:30 02/20/23 11:01 Allopurinol 100 Mg Tab PO 100 mg DAILY KAZ Administration Amitriptyline HCl 25 mg 02/20/23 21:00 Amitriptyline Hcl 25 Mg Tab PO HS [facility] Atorvastatin Calcium 20 mg 02/20/23 10:30 02/20/23 11:01 Atorvastatin 20 Mg Tab PO 20 mg DAILY KAZ Administration Budesonide/Formoterol Fumarate 2 puff 02/20/23 08:00 02/20/23 09:55 Symbicort 160-4.5 Mcg Inhaler INHALATION 2 puff RT-BID KAZ Administration Clopidogrel Bisulfate 75 mg 02/20/23 10:30 02/20/23 11:01 Clopidogrel 75 Mg Tab PO 75 mg DAILY [facility] Administration Divalproex Sodium 250 mg 02/20/23 10:30 02/20/23 11:04 Divalproex 250 Mg Tablet.Dr PO 250 mg BID [facility] Administration Doxycycline Monohydrate 100 mg 02/20/23 09:00 02/20/23 09:57 Doxycycline 100 Mg Cap PO 100 mg BID [facility] Administration Protocol Famotidine 20 mg 02/20/23 10:30 02/20/23 11:01 Famotidine 20 Mg Tab PO 20 mg DAILY KAZ Administration Furosemide 40 mg 02/20/23 10:30 02/20/23 11:01 Furosemide 40 Mg Tab PO 40 mg BID@0900,1600 [facility] Administration Isosorbide Mononitrate 60 mg 02/20/23 10:30 02/20/23 11:01 Isosorbide Mononitrate Er 60 Mg Tab.Er.24h PO 60 mg DAILY [facility] Administration Magnesium Oxide 400 mg 02/21/23 09:00 Magnesium Oxide 400 Mg Tab PO Q48H [facility] Metformin HCl 850 mg 02/20/23 17:30 Metformin 850 Mg Tab PO BID@0730,1730 [facility] Methylprednisolone Sodium Succinate 60 mg 02/20/23 06:00 02/20/23 11:34 Methylprednisolone Sod Succi 125 Mg/2 Ml Vial IV 60 mg Q6HR KAZ Administration Modafinil 200 mg 02/20/23 10:30 02/20/23 11:10 Modafinil 200 Mg Tab PO 200 mg DAILY KAZ Administration Montelukast Sodium 10 mg 02/20/23 10:30 02/20/23 11:02 Montelukast 10 Mg Tab PO 10 mg DAILY KAZ Administration Morphine Sulfate 4 mg 02/19/23 16:27 02/20/23 02:31 Morphine Sulfate 4 Mg/Ml Syringe IV 4 mg Q4HR PRN Administration Severe Pain (Scale 7 to 10) Mycophenolate Mofetil 500 mg 02/20/23 10:30 02/20/23 11:02 Mycophenolate Mofetil 500 Mg Tab PO 500 mg DAILY KAZ Administration Naloxone HCl 0.2 mg 02/19/23 16:27 Naloxone 0.4 Mg/Ml 1 Ml Vial IV Q2M PRN Opioid Reversal Nicotine 1 patch 02/20/23 09:00 02/20/23 09:57 Nicotine 21mg/24hr Patch TRANSDERM 1 patch DAILY KAZ Administration Nitroglycerin 0.4 mg 02/20/23 10:15 Nitroglycerin Sl Tabs 0.4 Mg Tab SUBLINGUAL Q5M PRN Chest Pain Ondansetron HCl 4 mg 02/19/23 16:27 Ondansetron 4 Mg/2 Ml Vial IVP Q8HR PRN Nausea And Vomiting Oxycodone/Acetaminophen 1 each 02/20/23 10:15 02/20/23 11:04 Oxycodone-Apap 10-325mg 1 Each Tab PO 1 each Q8HR PRN Administration Pain Paroxetine HCl 20 mg 02/20/23 10:30 02/20/23 11:02 Paroxetine 20 Mg Tab PO 20 mg DAILY KAZ Administration Phenytoin Sodium 200 mg 02/20/23 10:30 02/20/23 11:03 Phenytoin Sodium Extended 100 Mg Cap PO 200 mg BID KAZ Administration Potassium Chloride 30 meq 02/20/23 10:30 02/20/23 11:03 Potassium Chloride Er 10 Meq Tab.Er.Prt PO 30 meq DAILY KAZ Administration Pregabalin 200 mg 02/20/23 10:30 02/20/23 11:03 Pregabalin 100 Mg Cap PO 200 mg TID KAZ Administration Ropinirole HCl 1 mg 02/20/23 10:30 02/20/23 11:03 Ropinirole Hcl 1 Mg Tab PO 1 mg BID KAZ Administration Sucralfate 1 gm 02/20/23 10:30 02/20/23 11:10 Sucralfate 1 Gm Tab PO 1 gm AC-BID KAZ Administration Theophylline 400 mg 02/20/23 10:30 02/20/23 11:03 Theophylline 24 Hour 400 Mg Cap.Er.24h PO 400 mg DAILY KAZ Administration Valproic Acid 250 mg 02/20/23 10:30 02/20/23 11:03 Valproic Acid Oral Soln 250 Mg/5 Ml Cup PO 250 mg BID KAZ Administration Intake and Output 02/19/23 02/20/23 02/20/23 22:59 06:59 14:59 Other: # Voids 1 Weight 99.79 kg 99.79 kg Patient Weight 02/21/23 06:59 Weight 99.79 kg 02/20/23 05:53 02/20/23 05:53
[2023-02-20 12:44] LABS: T4, Free (Free Thyroxine) 1.01 ng/dL (0.78-2.19)
[2023-02-20 16:33] LABS: Glucose,Whole Blood 275 mg/dL (70-110)
[2023-02-20] MEDS: metFORMIN 850 MG TAB PO SCH (16:57)
--- NOTE | 2023-02-20 18:38 | CA ---
Transthoracic Echo Report Name: Power Fajardo Age: 62 Gender: M : 1960 Exam Date: 02/20/2023 10:34 Exam Location: [facility] Ht (in): 69 Wt (lb): 220 Ordering Physician: Wali Arias MD ([id number]) Attending/Referring Phys: Producer Arborist Manager Veronica Schuzl RDCS Procedure CPT: Indications: EF Cardiac Hx: stents Technical Quality: Fair Contrast 1: Total Dose (mL): Contrast 2: Total Dose (mL): MEASUREMENTS (Male / Female) Normal Values 2D ECHO LV Diastolic Diameter PLAX 5.5 cm 4.2 - 5.9 / 3.9 - 5.3 cm LV Systolic Diameter PLAX 4.5 cm IVS Diastolic Thickness 1.0 cm 0.6 - 1.0 / 0.6 - 0.9 cm LVPW Diastolic Thickness 1.3 cm 0.6 - 1.0 / 0.6 - 0.9 cm LV Relative Wall Thickness 0.4 RV Internal Dim ED PLAX 3.0 cm LA Systolic Diameter LX 4.0 cm 3.0 - 4.0 / 2.7 - 3.8 cm LV Diastolic Volume MOD 4C 176.3 cm??? LV Systolic Volume MOD 4C 93.7 cm??? LV Ejection Fraction MOD 4C 46.9 % LV Diastolic Length 4C 10.4 cm LV Systolic Length 4C 8.7 cm LV Diastolic Volume MOD 2C 130.9 cm??? LV Systolic Volume MOD 2C 72.0 cm??? LV Ejection Fraction MOD 2C 45.0 % LV Diastolic Length 2C 9.0 cm LV Systolic Length 2C 7.0 cm LA Volume 77.7 cm??? 18 - 58 / 22 - 52 cm??? M-MODE Aortic Root Diameter MM 3.4 cm MV E Point Septal Separation 1.0 cm DOPPLER AV Peak Velocity 225.5 cm/s AV Peak Gradient 20.3 mmHg AV Mean Velocity 151.9 cm/s AV Mean Gradient 10.7 mmHg AV Velocity Time Integral 51.7 cm MV Area PHT 2.7 cm??? Mitral E Point Velocity 114.0 cm/s Mitral A Point Velocity 107.0 cm/s Mitral E to A Ratio 1.1 MV Deceleration Time 275.9 ms MV E' Velocity 3.9 cm/s Mitral E to MV E' Ratio 29.2 FINDINGS Left Ventricle Left ventricular ejection fraction is estimated at 40-45 %. Left ventricular cavity size normal. Mildly increased left ventricular wall thickness. Right Ventricle Normal right ventricular size and function. Unable to estimate the right ventricular systolic pressure. Right Atrium Normal right atrial size. Left Atrium Moderately increased left atrial volume. Mildly increased left atrial area. Mitral Valve Mitral annular calcification. Trace mitral regurgitation. Aortic Valve Trileaflet aortic valve. Aortic valve sclerosis. Mild aortic stenosis with a peak gradient of 20 mmHg and a mean gradient of 11 mmHg. Tricuspid Valve Structurally normal tricuspid valve. No tricuspid stenosis, regurgitation or prolapse. Pulmonic Valve Structurally normal pulmonic valve. No pulmonic regurgitation. Pericardium Normal pericardium. No pericardial effusion. Aorta Normal size aortic root and proximal ascending aorta. CONCLUSIONS Reduced LV size and systolic function ejection fraction about 45% inferior wall/inferior basal akinesis Previewed by: Dr. Neto Escamilla MD (Electronically Signed) Final Date: 20 Feb 2023 18:37
[2023-02-20 19:54] LABS: Glucose,Whole Blood 287 mg/dL (70-110)
[2023-02-20] MEDS: AMITRIPTYLINE HCL 25 MG TAB PO SCH (21:34)
[2023-02-21] MEDS: methylPREDNISolone SOD SUCCI 125 MG/2 ML VIAL IV SCH ×5 (00:43→23:34)
[2023-02-21] MEDS: oxyCODONE-APAP 10-325MG 1 EACH TAB PO PRN ×2 (04:22→11:23)
[2023-02-21] MEDS: SUCRALFATE 1 GM TAB PO SCH ×2 (06:35→17:05)
[2023-02-21] MEDS: metFORMIN 850 MG TAB PO SCH ×2 (06:35→17:05)
[2023-02-21] MEDS: NICOTINE 21MG/24HR PATCH TRANSDERM SCH (08:30)
[2023-02-21] MEDS: ATORVASTATIN 20 MG TAB PO SCH (08:32)
[2023-02-21] MEDS: allopurinoL 100 MG TAB PO SCH (08:32)
[2023-02-21] MEDS: CLOPIDOGREL 75 MG TAB PO SCH (08:32)
[2023-02-21] MEDS: MAGNESIUM OXIDE 400 MG TAB PO SCH (08:33)
[2023-02-21] MEDS: DIVALPROEX 250 MG TABLET.DR PO SCH ×2 (08:33→20:47)
[2023-02-21] MEDS: FAMOTIDINE 20 MG TAB PO SCH (08:33)
[2023-02-21] MEDS: ISOSORBIDE MONONITRATE ER 60 MG TAB.ER.24H PO SCH (08:33)
[2023-02-21] MEDS: FUROSEMIDE 40 MG TAB PO SCH ×2 (08:33→17:06)
[2023-02-21] MEDS: DOXYCYCLINE 100 MG CAP PO SCH ×2 (08:33→20:47)
[2023-02-21] MEDS: MONTELUKAST 10 MG TAB PO SCH (08:34)
[2023-02-21] MEDS: POTASSIUM CHLORIDE ER 10 MEQ TAB.ER.PRT PO SCH (08:34)
[2023-02-21] MEDS: PHENYTOIN SODIUM EXTENDED 100 MG CAP PO SCH ×2 (08:34→20:47)
[2023-02-21] MEDS: PARoxetine 20 MG TAB PO SCH (08:34)
[2023-02-21] MEDS: THEOPHYLLINE 24 HOUR 400 MG CAP.ER.24H PO SCH (08:35)
[2023-02-21] MEDS: VALPROIC ACID ORAL SOLN 250 MG/5 ML CUP PO SCH ×2 (08:35→20:47)
[2023-02-21] MEDS: PREGABALIN 100 MG CAP PO SCH ×3 (08:35→20:47)
[2023-02-21] MEDS: IPRATROPIUM-ALBUTEROL 3 ML NEB INHALATION SCH ×4 (08:43→20:16)
[2023-02-21] MEDS: SYMBICORT 160-4.5 MCG INHALER INHALATION SCH ×2 (08:43→20:16)
--- NOTE | 2023-02-21 10:35 | P.PN ---
Subjective Progress Note Date: 02/21/23 Principal diagnosis: Shortness of breath. I'm seeing this patient in new consultation today 02/20/2023 in the emergency room for suspected COPD exacerbation. Patient is a 62-year-old white male with past medical history significant for severe COPD, oxygen dependence normally ma intained on 3 L/m nasal cannula, current 1 pack per day smoker, coronary artery disease and MIs with previous PCI, heart failure, previous TIAs and CVA, hyperlipidemia, hypertension, obstructive sleep apnea currently not compliant with CPAP, SLE and lupus nephritis on CellCept, GERD. Patient does follow office with Dr. Bone for management of his severe COPD. He's normally maintained on a combination of Trelegy and albuterol inhalers. Patient came into the emergency room yesterday afternoon, directed by his PCP Dr. Teran, apparently after being found bradycardic and hypoxic. Patient has been more short of breath lately. He admits to cough with brown sputum production and occasional hemoptysis. He denies any fevers, chills. He's also has occasional left-sided chest pain that does not radiate. No chest pain currently. No palpitations, lightheadedness, syncope, orthopnea, increased lower extremity edema. Patient is currently sitting at the edge of the stretcher, on 2 L nasal cannula, in no acute distress. Chest x-ray on arrival shows minimal subsegmental atelectasis at the left base and mild cardiomegaly. No focal consolidation or evidence of pneumonia. CBC and CMP were fairly unremarkable. EKG on arrival showed normal sinus rhythm with bigeminal PVCs. Troponins negative 3. NT proBNP low at 523. Vital signs are stable at this time. Progress note dated 02/21/2023. Patient was seen yesterday in the emergency department. The patient was admitted with a diagnosis of COPD exacerbation. The patient is currently on 4 L of oxygen. He is seen today in room 253 as an overflow patient in the intensive care unit. He's not receiving any IV fluids. He does have sleep apnea as well, and uses CPAP for that. He also uses oxygen 24/7 for chronic hypoxemic res piratory failure. The patient's currently not on any IV fluids. He does continue to smoke cigarettes. No new labs today to speak of. The labs from yesterday have been reviewed. Chest x-ray shows evidence of atelectasis, left lung base. Objective - Vital Signs Vital signs: Vital Signs Temp 98.1 F 02/21/23 04:00 Pulse 89 02/21/23 08:55 Resp 20 02/21/23 08:55 BP 127/82 02/21/23 04:00 Pulse Ox 94 L 02/21/23 08:43 FiO2 Intake & Output 02/20/23 02/21/23 02/21/23 18:59 06:59 18:59 Weight 99.79 kg 96.8 kg Other: Voiding Method Toilet Toilet # Voids 2 2 - Exam No acute distress, oriented 3. Currently on 4 L of oxygen. No conversational dyspnea. HEENT examination is grossly unremarkable. Neck supple. Full range of motion. No adenopathy thyromegaly or neck vein distention. Cardiovascular examination reveals regular rhythm rate. S1-S2 normal. No S3 or S4. No discernible murmur noted. Heart sounds are distant. Heart rate 89 bpm. Lungs reveal inspiratory and expiratory wheezes and rhonchi. No crackles. Breath sounds equal bilaterally. Breath sounds are diminished throughout. Saturations are 94% on 4 L. Abdomen soft, without bowel sounds. No masses or tenderness. Extremities are intact. No cyanosis clubbing or edema. Skin is without rash or lesion. Neurologic examination is brief but nonfocal. - Labs CBC & Chem 7: 02/20/23 05:53 02/20/23 05:53 Labs: Abnormal Lab Results - Last 24 Hours (Table) 02/20/23 02/20/23 02/20/23 Range/Units 05:53 16:31 19:53 POC Glucose (mg/dL) 275 H 287 H (70-110) mg/dL TSH 0.361 L (0.465-4.680) mIU/L Assessment and Plan Assessment: Acute exacerbation of chronic COPD, mildly improved, in a patient with severe COPD, and an FEV1 percent that is 16. Chronic hypoxemic respiratory failure, on home O2. Bradycardia. Obstructive sleep apnea syndrome, was previously on CPAP. CAD, with previous NC, and PCI. Essential hypertension. Hyperlipidemia. History of CVA. History of CHF. Systemic lupus erythematosus, lupus nephritis. Chronic nicotine dependence, and ongoing tobacco use. Plan: Plan dated 02/21/2023. The patient continues on supplemental oxygen, corticosteroids, bronchodilators, etc. Cardiology was consulted. The patient was offered nicotine replacement therapy. Labs, x-rays, and medications are all reviewed. The patient has severe COPD, with an FEV1 that is 16% of predicted. The patient continues on appropriate medications. Unfortunately, the patient was smoking up to the time of his admission. We will continue to follow make recommendations along the way. The patient could be transferred out of the intensive care unit, to the general medical floor. Time with Patient: Less than 30
--- NOTE | 2023-02-21 11:24 | P.PN ---
Subjective Progress Note Date: 02/21/23 Principal diagnosis: Bradycardia The patient is a 62-year-old gentleman with CAD and prior stenting of the RCA and LAD as well as hypertension and dyslipidemia and smoking and chronic hypoxic respiratory failure secondary to chronic obstructive pulmonary disease who was referred from his primary care physician to the hospital for further evaluation of shortness of breath and bradycardia. The patient was seen yesterday at Dr. Teran office for routine follow-up visit. He was found to be bradycardic with heart rate in the 30s. For that reason and because was called and the patient was brought to the emergency department. During his hospital stay he has been maintaining heart rate in the 40s and 50s. He was receiving beta himanshu. He reports no cardiovascular symptoms related to bradycardia including dizziness or lightheadedness or presyncope or syncope. Beside that he reports no pain in the chest. He does have shortness of breath with exertion according to him has been his baseline and unchanged compared to before. No fever and no chills. He underwent further evaluation including an EKG and that showed sinus mechanism was PVC. Troponin was checked at 3 sets and that came in to be unremarkable. The rest of the blood work overall is unremarkable. Currently pulmonary and critical care services on the case and he is getting treated for COPD. He was receiving metoprolol which we are going to hold at this point. Also will obtain a TSH and free T4 to rule out any thyroid disease related to bradycardia. So far the patient has been maintaining heart rate in the 40s as well as in the 50s on beta himanshu. The last echocardiogram was performed in 2020 showing preserved biventricular dimension and systolic function was no significant valvular abnormalities 02/21/2023 The patient was seen and evaluated this morning. The shortness of breath has improved. He is on treatment for COPD exacerbation. The heart rate has improved significantly and now his resting heart rate has been in the 70s. Beta himanshu currently is on hold. He underwent an echo which revealed mildly impaired LV function was EF around 45%. TSH and free T4 checked and TSH came in to be slightly abnormal but free T4 is within normal limits. From the cardiac vascular standpoint of view, the patient potentially can be discharged home if he is stable from the COPD standpoint overview. The examination is remarkable for regular rhythm with systolic murmur at the right upper sternal border and diminished breathing sounds bilaterally and no lower extremity edema noted beside that he does have a bradycardia with heart rate in the 40s and 50s Assessment Bradycardia, asymptomatic, resolved after stopping beta himanshu Premature ventricular contraction Chronic obstructive pulmonary disease CAD with previous stenting Hypertension Dyslipidemia Smoking Plan Avoid any AV erika himanshu agentsl Follow-up with the patient on when necessary case Objective - Vital Signs Vital signs: Vital Signs Temp 97.8 F 02/21/23 08:00 Pulse 89 02/21/23 08:55 Resp 20 02/21/23 08:55 BP 136/90 02/21/23 08:00 Pulse Ox 94 L 02/21/23 08:43 FiO2 Intake & Output 02/20/23 02/21/23 02/21/23 18:59 06:59 18:59 Weight 99.79 kg 96.8 kg Other: Voiding Method Toilet Toilet # Voids 2 2 1 # Bowel Movements 1 - Labs CBC & Chem 7: 02/20/23 05:53 02/20/23 05:53 Labs: Abnormal Lab Results - Last 24 Hours (Table) 02/20/23 02/20/23 02/20/23 Range/Units 05:53 16:31 19:53 POC Glucose (mg/dL) 275 H 287 H (70-110) mg/dL TSH 0.361 L (0.465-4.680) mIU/L
[2023-02-21 11:37] LABS: Glucose,Whole Blood 211 mg/dL (70-110)
--- NOTE | 2023-02-21 14:03 | P.PN ---
Subjective 02/20/2023 This is a 62-year-old male well-known to me. He has significant oxygen dependent COPD. He continues to smoke probably 1/2-1 pack a day. He reports increasing cough. He states at the site of the previous trach left neck if he pushes in that area he is able to cough up more productive mucus and is concerned about pocket in that area. He also was found to be bradycardic in the office of the heart rate in the 30s. It is ongoing hypoxia and bradycardia, EMS was called to my office for emergency room. He was found to have slightly better heart rate at that time in the 50s. He continues to be short of breath and was admitted for further treatment acute COPD and bradycardia. Scoring is resting comfortably in overflow in the ICU as a stepdown bed is unavailable. He is okay at rest. Does complain of back pain today which is th is is chronic for him. 02/21/2023: patient is resting comfortably. SOB is better. HR is nw improived in the 70's with DC of metoprolol by cardiology. APtient's back pain is conrolled with home meds.Vitals remain stable.COnsultatn recommendations noted. Patient overall improving. Objective - Vital Signs Vital signs: Vital Signs Temp 97.8 F 02/21/23 08:00 Pulse 86 02/21/23 12:12 Resp 25 H 02/21/23 12:12 BP 136/90 02/21/23 08:00 Pulse Ox 94 L 02/21/23 08:43 FiO2 Intake & Output 02/20/23 02/21/23 02/21/23 18:59 06:59 18:59 Weight 99.79 kg 96.8 kg Other: Voiding Method Toilet Toilet # Voids 2 2 1 # Bowel Movements 1 - Exam GENERAL: fatigued male with O2 via NC in place in no acute distress. NECK: Normal range of motion, supple without lymphadenopathy or JVD, no thyromegaly LUNGS:diminished and coarse with no active ronchi minimal wheeze HEART: Regular rate and rhythm without murmurs, rubs or gallops.S1S2 Normal ABDOMEN: Soft, nontender, normoactive bowel sounds. No guarding, no rebound. No masses appreciated. EXTREMITIES: Normal range of motion, no pitting or edema. No clubbing or cyanosis. NEUROLOGICAL: Cranial nerves II through XII grossly intact. Normal speech, normal gait. PSYCH: Normal mood, normal affect. SKIN:right leg surgery site is healed compression hose in place - Labs CBC & Chem 7: 02/20/23 05:53 02/20/23 05:53 Labs: Abnormal Lab Results - Last 24 Hours (Table) 02/20/23 02/20/23 02/21/23 Range/Units 16:31 19:53 11:36 POC Glucose (mg/dL) 275 H 287 H 211 H (70-110) mg/dL Assessment and Plan (1) Acute exacerbation of chronic obstructive airways disease Current Visit: Yes Status: Acute Code(s): J44.1 - CHRONIC OBSTRUCTIVE PULMONARY DISEASE W (ACUTE) EXACERBATION SNOMED Code(s): 760419918 (2) Chronic systolic (congestive) heart failure Current Visit: Yes Status: Acute Code(s): I50.22 - CHRONIC SYSTOLIC (CONGESTIVE) HEART FAILURE SNOMED Code(s): 448149471 (3) Acute bronchitis Current Visit: Yes Status: Acute Code(s): J20.9 - ACUTE BRONCHITIS, UNSPEC IFIED SNOMED Code(s): 65410402 (4) Bradycardia Current Visit: Yes Status: Acute Code(s): R00.1 - BRADYCARDIA, UNSPECIFIED SNOMED Code(s): 07386252 (5) Chronic kidney disease Current Visit: No Status: Acute Code(s): N18.9 - CHRONIC KIDNEY DISEASE, UNSPECIFIED SNOMED Code(s): 808777732 (6) Chronic low back pain Current Visit: No Status: Acute Code(s): M54.5 - LOW BACK PAIN * DO NOT USE *; G89.29 - OTHER CHRONIC PAIN SNOMED Code(s): 066260034 (7) Chronic respiratory failure Current Visit: No Status: Acute Code(s): J96.10 - CHRONIC RESPIRATORY FAILURE, UNSP W HYPOXIA OR HYPERCAPNIA SNOMED Code(s): 10678963 (8) Degenerative disc disease, lumbar Current Visit: No Status: Acute Code(s): M51.36 - OTHER INTERVERTEBRAL DISC DEGENERATION, LUMBAR REGION SNOMED Code(s): 18930755 (9) Ischemic heart disease Current Visit: No Status: Acute Code(s): I25.9 - CHRONIC ISCHEMIC HEART DISEASE, UNSPECIFIED SNOMED Code(s): 845293844 (10) FDC (current) use of opiate analgesic Current Visit: No Status: Acute Code(s): Z79.891 - PRISON (CURRENT) USE OF OPIATE ANALGESIC SNOMED Code(s): 558633146 (11) Long-term use of immunosuppressant medication Current Visit: No Status: Acute Code(s): Z79.899 - OTHER PRISON (CURRENT) DRUG THERAPY SNOMED Code(s): 489455353 (12) Lupus nephritis Current Visit: No Status: Acute Code(s): M32.14 - GLOMERULAR DISEASE IN SYSTEMIC LUPUS ERYTHEMATOSUS SNOMED Code(s): 74080340 (13) Nicotine dependence Current Visit: No Status: Acute Code(s): F17.200 - NICOTINE DEPENDENCE, UNSPECIFIED, UNCOMPLICATED SNOMED Code(s): 37043858 Plan: cleared by cardiology, expect pulmonology to follow suti tomorrow, will reevaluate in next 24 hrous for expectant d/c continue O2, cuerrent meds
[2023-02-21 17:20] LABS: Glucose,Whole Blood 217 mg/dL (70-110)
[2023-02-21] MEDS: AMITRIPTYLINE HCL 25 MG TAB PO SCH (20:47)
[2023-02-22] MEDS: methylPREDNISolone SOD SUCCI 125 MG/2 ML VIAL IV SCH ×3 (06:02→17:17)
[2023-02-22] MEDS: PREGABALIN 100 MG CAP PO SCH ×3 (07:50→21:37)
[2023-02-22] MEDS: FUROSEMIDE 40 MG TAB PO SCH ×2 (07:50→15:55)
[2023-02-22] MEDS: POTASSIUM CHLORIDE ER 10 MEQ TAB.ER.PRT PO SCH (07:50)
[2023-02-22] MEDS: ISOSORBIDE MONONITRATE ER 60 MG TAB.ER.24H PO SCH (07:50)
[2023-02-22] MEDS: allopurinoL 100 MG TAB PO SCH (07:50)
[2023-02-22] MEDS: ATORVASTATIN 20 MG TAB PO SCH (07:51)
[2023-02-22] MEDS: PHENYTOIN SODIUM EXTENDED 100 MG CAP PO SCH ×2 (07:51→21:36)
[2023-02-22] MEDS: NICOTINE 21MG/24HR PATCH TRANSDERM SCH (07:51)
[2023-02-22] MEDS: CLOPIDOGREL 75 MG TAB PO SCH (07:51)
[2023-02-22] MEDS: FAMOTIDINE 20 MG TAB PO SCH (07:51)
[2023-02-22] MEDS: MONTELUKAST 10 MG TAB PO SCH (07:51)
[2023-02-22] MEDS: THEOPHYLLINE 24 HOUR 400 MG CAP.ER.24H PO SCH (07:52)
[2023-02-22] MEDS: VALPROIC ACID ORAL SOLN 250 MG/5 ML CUP PO SCH ×2 (07:52→21:36)
[2023-02-22] MEDS: DIVALPROEX 250 MG TABLET.DR PO SCH ×2 (07:52→21:37)
[2023-02-22] MEDS: DOXYCYCLINE 100 MG CAP PO SCH ×2 (07:52→21:37)
[2023-02-22] MEDS: SUCRALFATE 1 GM TAB PO SCH ×2 (07:54→17:17)
[2023-02-22] MEDS: metFORMIN 850 MG TAB PO SCH ×2 (07:54→17:16)
[2023-02-22] MEDS: PARoxetine 20 MG TAB PO SCH (07:54)
[2023-02-22] MEDS: oxyCODONE-APAP 10-325MG 1 EACH TAB PO PRN ×2 (07:55→17:20)
[2023-02-22 08:11] LABS: Glucose,Whole Blood 274 mg/dL (70-110)
[2023-02-22] MEDS: SYMBICORT 160-4.5 MCG INHALER INHALATION SCH (08:26)
[2023-02-22] MEDS: IPRATROPIUM-ALBUTEROL 3 ML NEB INHALATION SCH ×4 (08:26→20:31)
[2023-02-22 10:14] LABS: Anion Gap 11.6 mmol/L (10.00-18.00); BUN/Creat Ratio 31.63 Ratio (12.00-20.00); Blood Urea Nitrogen 25.3 mg/dL (9.0-27.0); Calcium 9.1 mg/dL (8.7-10.3); Carbon Dioxide 31.4 mmol/L (20.0-27.5); Non-African American GFR(CKD) 95.7 (60.0-200.0); Potassium 4.6 mmol/L (3.5-5.5)
--- NOTE | 2023-02-22 11:19 | P.PN ---
Subjective Progress Note Date: 02/22/23 I'm seeing this patient in new consultation today 02/20/2023 in the emergency room for suspected COPD exacerbation. Patient is a 62-year-old white male with past medical history significant for severe COPD, oxygen dependence normally maintained on 3 L/m nasal cannula, current 1 pack per day smoker, coronary artery disease and MIs with previous PCI, heart failure, previous TIAs and CVA, hyperlipidemia, hypertension, obstructive sleep apnea currently not compliant with CPAP, SLE and lupus nephritis on CellCept, GERD. Patient does follow office with Dr. Bone for management of his severe COPD. He's normally maintained on a combination of Trelegy and albuterol inhalers. Patient came into the emergency room yesterday afternoon, directed by his PCP Dr. Teran, apparently after being found bradycardic and hypoxic. Patient has been more short of breath lately. He admits to cough with brown sputum production and occasional hemoptysis. He denies any fevers, chills. He's also has occasional left-sided chest pain that does not radiate. No chest pain currently. No palpitations, lightheadedness, syncope, orthopnea, increased lower extremity edema. Patient is currently sitting at the edge of the stretcher, on 2 L nasal cannula, in no acute distress. Chest x-ray on arrival shows minimal subsegmental atelectasis at the left base and mild cardiomegaly. No focal consolidation or evidence of pneumonia. CBC and CMP were fairly unremarkable. EKG on arrival showed normal sinus rhythm with bigeminal PVCs. Troponins negative 3. NT proBNP low at 523. Vital signs are stable at this time. Progress note dated 02/21/2023. Patient was seen yesterday in the emergency department. The patient was admitted with a diagnosis of COPD exacerbation. The patient is currently on 4 L of oxygen. He is seen today in room 253 as an overflow patient in the intensive care unit. He's not receiving any IV fluids. He does have sleep apnea as well, and uses CPAP for that. He also uses oxygen 24/7 for chronic hypoxemic respiratory failure. The patient's currently not on any IV fluids. He does continue to smoke cigarettes. No new labs today to speak of. The labs from yesterday have been reviewed. Chest x-ray shows evidence of atelectasis, left lung base. The patient is seen today 02/22/2023 in follow-up on the regular medical floor. He is currently sitting up in bed. Awake and alert in no acute distress. Maintaining good O2 saturations in the 90s on 3 L/m per nasal cannula. Sodium 143. Potassium 4.6. BUN 25. Creatinine 0.8. Glucose 281. He is continued on DuoNeb inhalations, Pulmicort and Perforomist inhalations, theophylline, Solu- Medrol, Singulair. Empiric antibiotics in the form of doxycycline. NicoDerm patch is in place. Objective - Vital Signs Vital signs: Vital Signs Temp 97.9 F 02/22/23 07:39 Pulse 84 02/22/23 08:37 Resp 16 02/22/23 07:39 BP 164/90 02/22/23 07:39 Pulse Ox 94 L 02/22/23 08:26 FiO2 Intake & Output 02/21/23 02/22/23 02/22/23 18:59 06:59 18:59 Intake Total 120 Balance 120 Weight 105.5 kg Intake: Oral 120 Other: Voiding Method Toilet # Voids 4 2 # Bowel Movements 1 - Exam GENERAL EXAM: Alert, obese, 62-year-old male, on 3 L nasal cannula, comfortable in no apparent distress. HEAD: Normocephalic. EYES: Normal reaction of pupils, equal size. NOSE: Clear with pink turbinates. THROAT: No erythema or exudates. NECK: No masses, no JVD. CHEST: No chest wall deformity. LUNGS: Equal air entry with end expiratory wheeze, diminished. CVS: S1 and S2 normal with no audible murmur, regular rhythm. ABDOMEN: No hepatosplenomegaly, normal bowel sounds, no guarding or rigidity. SPINE: No scoliosis or deformity SKIN: No rashes CENTRAL NERVOUS SYSTEM: No focal deficits, tone is normal in all 4 extremities. EXTREMITIES: There is no peripheral edema. No clubbing, no cyanosis. Peripheral pulses are intact. - Labs CBC & Chem 7: 02/20/23 05:53 02/22/23 05:31 Labs: Abnormal Lab Results - Last 24 Hours (Table) 02/21/23 02/21/23 02/22/23 Range/Units 11:36 17:17 05:31 Carbon Dioxide 31.4 H (20.0-27.5) mmol/L BUN/Creatinine Ratio 31.63 H (12.00-20.00) Ratio Glucose 281 H (70-110) mg/dL POC Glucose (mg/dL) 211 H 217 H (70-110) mg/dL 02/22/23 Range/Units 08:09 Carbon Dioxide (20.0-27.5) mmol/L BUN/Creatinine Ratio (12.00-20.00) Ratio Glucose (70-110) mg/dL POC Glucose (mg/dL) 274 H (70-110) mg/dL Assessment and Plan Assessment: Acute exacerbation of chronic COPD, mildly improved, in a patient with severe COPD, and an FEV1 value of 16%. Chronic hypoxemic respiratory failure, on home O2. Obstructive sleep apnea syndrome, was previously on CPAP. CAD, with previous OK, and PCI. Essential hypertension. Hyperlipidemia. History of CVA. History of CHF. Systemic lupus erythematosus, lupus nephritis. Chronic nicotine dependence, and ongoing tobacco use. Plan: The patient was seen and evaluated Medications and labs reviewed Improved but not quite back to his baseline Continue the current treatment plan Titrate the FiO2 as tolerated Probable discharge in the a.m. We will continue to follow I have personally seen and examined the patient, performed the documentation and the assessment and plan as written. Number of minutes spent on the visit: 10.
[2023-02-22 11:31] LABS: Glucose,Whole Blood 330 mg/dL (70-110)
[2023-02-22] MEDS ORDERED: INSULIN ASPART (NovoLOG) 100 UNIT/ML VIAL SQ ONE (11:54)
--- NOTE | 2023-02-22 12:12 | P.PN ---
Subjective 02/20/2023 This is a 62-year-old male well-known to me. He has significant oxygen dependent COPD. He continues to smoke probably 1/2-1 pack a day. He reports increasing cough. He states at the site of the previous trach left neck if he pushes in that area he is able to cough up more productive mucus and is concerned about pocket in that area. He also was found to be bradycardic in the office of the heart rate in the 30s. It is ongoing hypoxia and bradycardia, EMS was called to my office for emergency room. He was found to have slightly better heart rate at that time in the 50s. He continues to be short of breath and was admitted for further treatment acute COPD and bradycardia. Scoring is resting comfortably in overflow in the ICU as a stepdown bed is unavailable. He is okay at rest. Does complain of back pain today which is th is is chronic for him. 02/21/2023: patient is resting comfortably. SOB is better. HR is nw improived in the 70's with DC of metoprolol by cardiology. APtient's back pain is conrolled with home meds.Vitals remain stable.COnsultatn recommendations noted. Patient overall improving. 02/22/2023: patient is doing better with his COPD exacerbation. He has severe disease but continues to smoke even thought he is steoid/theophilline/O2 dependent. Today he feels better. No significant symptoms Objective - Vital Signs Vital signs: Vital Signs Temp 97.9 F 02/22/23 07:39 Pulse 96 02/22/23 11:45 Resp 16 02/22/23 07:39 BP 164/90 02/22/23 07:39 Pulse Ox 94 L 02/22/23 08:26 FiO2 Intake & Output 02/21/23 02/22/23 02/22/23 18:59 06:59 18:59 Intake Total 120 Balance 120 Weight 105.5 kg Intake: Oral 120 Other: Voiding Method Toilet # Voids 4 2 # Bowel Movements 1 - Exam GENERAL: male with O2 via NC in place in no acute distress.He is improved today and more awake. NECK: Normal range of motion, supple without lymphadenopathy or JVD, no thyromegaly LUNGS:diminished and coarse with no active ronchi minimal wheeze HEART: Regular rate and rhythm without murmurs, rubs or gallops.S1S2 Normal ABDOMEN: Soft, nontender, normoactive bowel sounds. No guarding, no rebound. No masses appreciated. EXTREMITIES: Normal range of motion, no pitting or edema. No clubbing or cyanosis. Jobst hose in place NEUROLOGICAL: Cranial nerves II through XII grossly intact. Normal speech, normal gait. PSYCH: Normal mood, normal affect. SKIN:right leg surgery site is healed compression hose in place - Labs CBC & Chem 7: 02/20/23 05:53 02/22/23 05:31 Labs: Abnormal Lab Results - Last 24 Hours (Table) 02/21/23 02/22/23 02/22/23 Range/Units 17:17 05:31 08:09 Carbon Dioxide 31.4 H (20.0-27.5) mmol/L BUN/Creatinine Ratio 31.63 H (12.00-20.00) Ratio Glucose 281 H (70-110) mg/dL POC Glucose (mg/dL) 217 H 274 H (70-110) mg/dL 02/22/23 Range/Units 11:29 Carbon Dioxide (20.0-27.5) mmol/L BUN/Creatinine Ratio (12.00-20.00) Ratio Glucose (70-110) mg/dL POC Glucose (mg/dL) 330 H (70-110) mg/dL Assessment and Plan (1) Acute exacerbation of chronic obstructive airways disease Current Visit: Yes Status: Acute Code(s): J44.1 - CHRONIC OBSTRUCTIVE PULMONARY DISEASE W (ACUTE) EXACERBATION SNOMED Code(s): 810399020 (2) Chronic systolic (congestive) heart failure Current Visit: Yes Status: Acute Code(s): I50.22 - CHRONIC SYSTOLIC (CONGESTIVE) HEART FAILURE SNOMED Code(s): 137573939 (3) Acute bronchitis Current Visit: Yes Status: Acute Code(s): J20.9 - ACUTE BRONCHITIS, UNSPECIFIED SNOMED Code(s): 55313953 (4) Bradycardia Current Visit: Yes Status: Acute Code(s): R00.1 - BRADYCARDIA, UNSPECIFIED SNOMED Code(s): 59391727 (5) Chronic kidney disease Current Visit: No Status: Acute Code(s): N18.9 - CHRONIC KIDNEY DISEASE, UNSPECIFIED SNOMED Code(s): 974992035 (6) Chronic low back pain Current Visit: No Status: Acute Code(s): M54.5 - LOW BACK PAIN * DO NOT USE *; G89.29 - OTHER CHRONIC PAIN SNOMED Code(s): 646773254 (7) Chronic respiratory failure Current Visit: No Status: Acute Code(s): J96.10 - CHRONIC RESPIRATORY FAILURE, UNSP W HYPOXIA OR HYPERCAPNIA SNOMED Code(s): 48598462 (8) Degenerative disc disease, lumbar Current Visit: No Status: Acute Code(s): M51.36 - OTHER INTERVERTEBRAL DISC DEGENERATION, LUMBAR REGION SNOMED Code(s): 16324469 (9) Ischemic heart disease Current Visit: No Status: Acute Code(s): I25.9 - CHRONIC ISCHEMIC HEART DISEASE, UNSPECIFIED SNOMED Code(s): 323629735 (10) [employer] (current) use of opiate analgesic Current Visit: No Status: Acute Code(s): Z79.891 - CARE HOME (CURRENT) USE OF OPIATE ANALGESIC SNOMED Code(s): 272400412 (11) Long-term use of immunosuppressant medication Current Visit: No Status: Acute Code(s): Z79.899 - OTHER CARE HOME (CURRENT) DRUG THERAPY SNOMED Code(s): 350004536 (12) Lupus nephritis Current Visit: No Status: Acute Code(s): M32.14 - GLOMERULAR DISEASE IN SYSTEMIC LUPUS ERYTHEMATOSUS SNOMED Code(s): 46446333 (13) Nicotine dependence Current Visit: No Status: Acute Code(s): F17.200 - NICOTINE DEPENDENCE, UNSPECIFIED, UNCOMPLICATED SNOMED Code(s): 81112448 Plan: brdycardia has resolved, cardiology signed off, pulmonology following for severe copd exacerbation. He is improved. No major complaints today. REpeat labs in am and expect d/c in 24 hours
[2023-02-22] MEDS ORDERED: DEXTROSE 50% SYRINGE 50 ML IVP PRN ×2 (12:27)
[2023-02-22] MEDS: INSULIN ASPART (NovoLOG) 100 UNIT/ML VIAL SQ SCH ×3 (12:49→21:37)
[2023-02-22 16:36] LABS: Glucose,Whole Blood 300 mg/dL (70-110)
[2023-02-22 20:28] LABS: Glucose,Whole Blood 270 mg/dL (70-110)
[2023-02-22] MEDS: BUDESONIDE 1 MG/2 ML NEBU INHALATION SCH (20:31)
[2023-02-22] MEDS: FORMOTEROL FUMARATE 20 MCG/2 ML NEBU INHALATION SCH (20:31)
[2023-02-22] MEDS: AMITRIPTYLINE HCL 25 MG TAB PO SCH (21:36)
[2023-02-23] MEDS: methylPREDNISolone SOD SUCCI 125 MG/2 ML VIAL IV SCH ×2 (00:21→06:16)
[2023-02-23] MEDS: oxyCODONE-APAP 10-325MG 1 EACH TAB PO PRN (06:19)
[2023-02-23 07:50] LABS: Glucose,Whole Blood 246 mg/dL (70-110)
[2023-02-23 07:51] VITALS: BP 166/89; RESP 20; TEMP 98.9
[2023-02-23] MEDS: IPRATROPIUM-ALBUTEROL 3 ML NEB INHALATION SCH (07:52)
[2023-02-23] MEDS: BUDESONIDE 1 MG/2 ML NEBU INHALATION SCH (07:52)
[2023-02-23] MEDS: INSULIN ASPART (NovoLOG) 100 UNIT/ML VIAL SQ SCH (07:53)
[2023-02-23] MEDS: THEOPHYLLINE 24 HOUR 400 MG CAP.ER.24H PO SCH (07:54)
[2023-02-23] MEDS: SUCRALFATE 1 GM TAB PO SCH (07:54)
[2023-02-23] MEDS: allopurinoL 100 MG TAB PO SCH (07:54)
[2023-02-23] MEDS: MAGNESIUM OXIDE 400 MG TAB PO SCH (07:54)
[2023-02-23] MEDS: FAMOTIDINE 20 MG TAB PO SCH (07:54)
[2023-02-23] MEDS: ATORVASTATIN 20 MG TAB PO SCH (07:54)
[2023-02-23] MEDS: NICOTINE 21MG/24HR PATCH TRANSDERM SCH (07:54)
[2023-02-23] MEDS: VALPROIC ACID ORAL SOLN 250 MG/5 ML CUP PO SCH (07:54)
[2023-02-23] MEDS: CLOPIDOGREL 75 MG TAB PO SCH (07:55)
[2023-02-23] MEDS: MONTELUKAST 10 MG TAB PO SCH (07:55)
[2023-02-23] MEDS: ISOSORBIDE MONONITRATE ER 60 MG TAB.ER.24H PO SCH (07:55)
[2023-02-23] MEDS: metFORMIN 850 MG TAB PO SCH (07:55)
[2023-02-23] MEDS: DOXYCYCLINE 100 MG CAP PO SCH (07:55)
[2023-02-23] MEDS: FUROSEMIDE 40 MG TAB PO SCH (07:55)
[2023-02-23] MEDS: PHENYTOIN SODIUM EXTENDED 100 MG CAP PO SCH (07:56)
[2023-02-23] MEDS: POTASSIUM CHLORIDE ER 10 MEQ TAB.ER.PRT PO SCH (07:56)
[2023-02-23] MEDS: PARoxetine 20 MG TAB PO SCH (07:56)
[2023-02-23] MEDS: DIVALPROEX 250 MG TABLET.DR PO SCH (07:57)
[2023-02-23] MEDS: PREGABALIN 100 MG CAP PO SCH (07:58)
--- NOTE | 2023-02-23 07:58 | P.PN ---
Subjective Progress Note Date: 02/23/23 I'm seeing this patient in new consultation today 02/20/2023 in the emergency room for suspected COPD exacerbation. Patient is a 62-year-old white male with past medical history significant for severe COPD, oxygen dependence normally maintained on 3 L/m nasal cannula, current 1 pack per day smoker, coronary artery disease and MIs with previous PCI, heart failure, previous TIAs and CVA, hyperlipidemia, hypertension, obstructive sleep apnea currently not compliant with CPAP, SLE and lupus nephritis on CellCept, GERD. Patient does follow office with Dr. Bone for management of his severe COPD. He's normally maintained on a combination of Trelegy and albuterol inhalers. Patient came into the emergency room yesterday afternoon, directed by his PCP Dr. Teran, apparently after being found bradycardic and hypoxic. Patient has been more short of breath lately. He admits to cough with brown sputum production and occasional hemoptysis. He denies any fevers, chills. He's also has occasional left-sided chest pain that does not radiate. No chest pain currently. No palpitations, lightheadedness, syncope, orthopnea, increased lower extremity edema. Patient is currently sitting at the edge of the stretcher, on 2 L nasal cannula, in no acute distress. Chest x-ray on arrival shows minimal subsegmental atelectasis at the left base and mild cardiomegaly. No focal consolidation or evidence of pneumonia. CBC and CMP were fairly unremarkable. EKG on arrival showed normal sinus rhythm with bigeminal PVCs. Troponins negative 3. NT proBNP low at 523. Vital signs are stable at this time. Progress note dated 02/21/2023. Patient was seen yesterday in the emergency department. The patient was admitted with a diagnosis of COPD exacerbation. The patient is currently on 4 L of oxygen. He is seen today in room 253 as an overflow patient in the intensive care unit. He's not receiving any IV fluids. He does have sleep apnea as well, and uses CPAP for that. He also uses oxygen 24/7 for chronic hypoxemic respiratory failure. The patient's currently not on any IV fluids. He does continue to smoke cigarettes. No new labs today to speak of. The labs from yesterday have been reviewed. Chest x-ray shows evidence of atelectasis, left lung base. The patient is seen today 02/22/2023 in follow-up on the regular medical floor. He is currently sitting up in bed. Awake and alert in no acute distress. Maintaining good O2 saturations in the 90s on 3 L/m per nasal cannula. Sodium 143. Potassium 4.6. BUN 25. Creatinine 0.8. Glucose 281. He is continued on DuoNeb inhalations, Pulmicort and Perforomist inhalations, theophylline, Solu- Medrol, Singulair. Empiric antibiotics in the form of doxycycline. NicoDerm patch is in place. The patient is seen today 02/23/2023 in follow-up on the regular medical floor. He is awake and alert in no acute distress. Sitting up at the bedside. States he is feeling back to his baseline. No worsening shortness of breath, cough or congestion. Maintaining O2 saturations in the 90s on 3 L/m per nasal cannula. Afebrile. Blood sugar 246. He remains on DuoNeb inhalations, Pulmicort and Perforomist inhalations, theophylline, Solu-Medrol, Singulair. Empiric antibiotics in the form of doxycycline. NicoDerm patch is in place. Objective - Vital Signs Vital signs: Vital Signs Temp 98.9 F 02/23/23 07:48 Pulse 98 02/23/23 07:54 Resp 20 02/23/23 07:48 BP 166/89 02/23/23 07:48 Pulse Ox 93 L 02/23/23 07:48 FiO2 Intake & Output 02/22/23 02/23/23 02/23/23 18:59 06:59 18:59 Intake Total 480 Balance 480 Weight 104 kg Intake: Oral 480 Other: Voiding Method Toilet # Voids 5 2 # Bowel Movements 1 - Exam GENERAL EXAM: Alert, obese, 62-year-old male, sitting up at the bedside, on 3 L nasal cannula, comfortable in no apparent distress. HEAD: Normocephalic. EYES: Normal reaction of pupils, equal size. NOSE: Clear with pink turbinates. THROAT: No erythema or exudates. NECK: No masses, no JVD. CHEST: No chest wall deformity. LUNGS: Equal air entry with end expiratory wheeze, diminished. CVS: S1 and S2 normal with no audible murmur, regular rhythm. ABDOMEN: No hepatosplenomegaly, normal bowel sounds, no guarding or rigidity. SPINE: No scoliosis or deformity SKIN: No rashes CENTRAL NERVOUS SYSTEM: No focal deficits, tone is normal in all 4 extremities. EXTREMITIES: There is no peripheral edema. No clubbing, no cyanosis. Peripheral pulses are intact. - Labs CBC & Chem 7: 02/20/23 05:53 02/22/23 05:31 Labs: Abnormal Lab Results - Last 24 Hours (Table) 02/22/23 02/22/23 02/22/23 Range/Units 05:31 08:09 11:29 Carbon Dioxide 31.4 H (20.0-27.5) mmol/L BUN/Creatinine Ratio 31.63 H (12.00-20.00) Ratio Glucose 281 H (70-110) mg/dL POC Glucose (mg/dL) 274 H 330 H (70-110) mg/dL 02/22/23 02/22/23 02/23/23 Range/Units 16:35 20:25 07:49 Carbon Dioxide (20.0-27.5) mmol/L BUN/Creatinine Ratio (12.00-20.00) Ratio Glucose (70-110) mg/dL POC Glucose (mg/dL) 300 H 270 H 246 H (70-110) mg/dL Assessment and Plan Assessment: Acute exacerbation of chronic COPD, mildly improved, in a patient with severe COPD, and an FEV1 value of 16%. Chronic hypoxemic respiratory failure, on home O2. Obstructive sleep apnea syndrome, on CPAP. CAD, with previous TX, and PCI. Essential hypertension. Hyperlipidemia. History of CVA. History of CHF. Systemic lupus erythematosus, lupus nephritis. Chronic nicotine dependence, and ongoing tobacco use. Plan: The patient was seen and evaluated Medications reviewed Cleared for discharge from the pulmonary status Continue his home pulmonary medications, home oxygen Continue his home CPAP Complete a course of prednisone starting at 40 mg daily for 4 days Again educated regarding the importance of complete smoking cessation Follow-up in the office in 1 week I have personally seen and examined the patient, performed the documentation and the assessment and plan as written. Number of minutes spent on the visit: 10.
[2023-02-23] MEDS: FORMOTEROL FUMARATE 20 MCG/2 ML NEBU INHALATION SCH (08:10)
[2023-02-23 08:18] VITALS: PULSE 97
[2023-02-23] MEDS ORDERED: predniSONE 20 MG TAB PO SCH (09:00)
--- NOTE | 2023-02-23 09:08 | P.DS ---
Providers Date of admission: 02/19/23 17:09 Expected date of discharge: 02/23/23 Attending physician: Damir Teran Consults: 02/19/23 16:27 Consult Physician Routine Consulting Provider: Ernestina Mcfarland Consult Reason/Comments: chf,cp Do you want consulting provider notified?: Yes Consult Physician Routine Consulting Provider: Darian Bone Consult Reason/Comments: copd Do you want consulting provider notified?: Yes 02/19/23 20:28 Consult Physician Routine Consulting Provider: Tato Youngblood Consult Reason/Comments: trachSiteEval Do you want consulting provider notified?: Yes 02/20/23 10:22 Consult Physician Routine Consulting Provider: Aren Shipman Consult Reason/Comments: throat pocket food getting stuck Do you want consulting provider notified?: Yes Primary care physician: Damir Teran - Discharge Diagnosis(es) (1) Acute exacerbation of chronic obstructive airways disease Current Visit: Yes Status: Acute (2) Chronic systolic (congestive) heart failure Current Visit: Yes Status: Acute (3) Acute bronchitis Current Visit: Yes Status: Acute (4) Bradycardia Current Visit: Yes Status: Acute (5) Chronic kidney disease Current Visit: No Status: Acute (6) Chronic low back pain Current Visit: No Status: Acute (7) Chronic respiratory failure Current Visit: No Status: Acute (8) Degenerative disc disease, lumbar Current Visit: No Status: Acute (9) Ischemic heart disease Current Visit: No Status: Acute (10) terminal gauger (current) use of opiate analgesic Current Visit: No Status: Acute (11) Long-term use of immunosuppressant medication Current Visit: No Status: Acute (12) Lupus nephritis Current Visit: No Status: Acute (13) Nicotine dependence Current Visit: No Status: Acute Hospital Course: 02/20/2023 This is a 62-year-old male well-known to me. He has significant oxygen dependent COPD. He continues to smoke probably 1/2-1 pack a day. He reports increasing cough. He states at the site of the previous trach left neck if he pushes in that area he is able to cough up more productive mucus and is concerned about pocket in that area. He also was found to be bradycardic in the office of the heart rate in the 30s. It is ongoing hypoxia and bradycardia, EMS was called to my office for emergency room. He was found to have slightly better heart rate at that time in the 50s. He continues to be short of breath and was admitted for further treatment acute COPD and bradycardia. Scoring is resting comfortably in overflow in the ICU as a stepdown bed is unavailable. He is okay at rest. Does complain of back pain today which is this is chronic for him. 02/21/2023: patient is resting comfortably. SOB is better. HR is nw improived in the 70's with DC of metoprolol by cardiology. APtient's back pain is conrolled with home meds.Vitals remain stable.COnsultatn recommendations noted. Patient overall improving. 02/22/2023: patient is doing better with his COPD exacerbation. He has severe disease but continues to smoke even thought he is steoid/theophilline/O2 dependent. Today he feels better. No significant symptoms 02/23/2023: Patient and cleared by cardiology. He's feeling better. We discussed the plan of care. He'll try to refrain from smoking. He'll remain on his oxygen, CPAP, remain off metoprolol. He'll follow-up with cardiology and pulmonology outpatient. A follow-up in my office next week. Patient Condition at Discharge: Fair Plan - Discharge Summary Discharge Rx Participant: Yes New Discharge Prescriptions: New Ipratropium-Albuterol Nebulize [Duoneb 0.5 mg-3 mg/3 ml Soln] 3 ml INHALATION RT-QID each Nicotine 21Mg/24Hr Patch [Habitrol] 1 patch TRANSDERM DAILY patch Formoterol Fumarate [Perforomist] 20 mcg INHALATION RT-BID 30 Days #1 unit Doxycycline [Vibramycin] 100 mg PO BID 3 Days #6 cap predniSONE 10 mg PO DAILY #30 tab Continue PARoxetine [Paxil] 20 mg PO DAILY Phenytoin Sodium Extended [Dilantin] 200 mg PO BID Clopidogrel Bisulfate [Clopidogrel] 75 mg PO DAILY rOPINIRole HCL [Requip] 1 mg PO BID Theophylline Anhydrous [Theophylline] 400 mg PO DAILY allopurinoL [Zyloprim] 100 mg PO DAILY Montelukast [Singulair] 10 mg PO DAILY Nitroglycerin Sl Tabs [Nitrostat] 0.4 mg SUBLINGUAL Q5M PRN PRN Reason: Chest Pain Potassium Chloride [Klor-Con 20] 30 meq PO DAILY mycophenolate mofetiL [Cellcept] 500 mg PO DAILY Famotidine 20 mg PO DAILY Valproic Acid [Depakene] 250 mg PO BID modafiniL [Provigil] 200 mg PO DAILY #3 tab Amitriptyline HCl [Elavil] 25 mg PO HS Metoprolol Tartrate [Lopressor] 25 mg PO BID Isosorbide Mononitrate ER [Imdur] 60 mg PO DAILY Divalproex Sodium 250 mg PO BID Atorvastatin [Lipitor] 20 mg PO DAILY predniSONE 10 mg PO DAILY oxyCODONE-APAP 10-325MG [Percocet 10-325 mg] 1 tab PO Q8HR PRN PRN Reason: Pain Sucralfate [Carafate] 1 gm PO AC-BID Fluticasone/Umeclidin/Vilanter [Trelegy Ellipta 100-62.5-25] 1 puff INHALATION RT-DAILY Pregabalin [Lyrica] 200 mg PO TID #9 cap Metformin Er 1,500 mg PO W/SUPPER Magnesium Oxide [Mag-Ox] 400 mg PO Q48H Tiotropium [place] [Spiriva Handihaler] 1 puff INHALATION RT-DAILY Furosemide [Lasix] 40 mg PO BID Discharge Medication List PARoxetine [Paxil] 20 mg PO DAILY 05/21/16 [History] Phenytoin Sodium Extended [Dilantin] 200 mg PO BID 05/21/16 [History] Clopidogrel Bisulfate [Clopidogrel] 75 mg PO DAILY 05/22/16 [History] rOPINIRole HCL [Requip] 1 mg PO BID 08/30/16 [History] Theophylline Anhydrous [Theophylline] 400 mg PO DAILY 10/03/17 [History] Montelukast [Singulair] 10 mg PO DAILY 02/04/18 [History] Nitroglycerin Sl Tabs [Nitrostat] 0.4 mg SUBLINGUAL Q5M PRN 02/04/18 [History] Potassium Chloride [Klor-Con 20] 30 meq PO DAILY 02/04/18 [History] allopurinoL [Zyloprim] 100 mg PO DAILY 02/04/18 [History] mycophenolate mofetiL [Cellcept] 500 mg PO DAILY 08/05/19 [History] Famotidine 20 mg PO DAILY 05/12/20 [History] Valproic Acid [Depakene] 250 mg PO BID 08/07/21 [History] Pregabalin [Lyrica] 200 mg PO TID #9 cap 11/18/22 [Rx] modafiniL [Provigil] 200 mg PO DAILY #3 tab 11/18/22 [Rx] Amitriptyline HCl [Elavil] 25 mg PO HS 02/19/23 [History] Atorvastatin [Lipitor] 20 mg PO DAILY 02/19/23 [History] Divalproex Sodium 250 mg PO BID 02/19/23 [History] Fluticasone/Umeclidin/Vilanter [Trelegy Ellipta 100-62.5-25] 1 puff INHALATION RT-DAILY 02/19/23 [History] Furosemide [Lasix] 40 mg PO BID 02/19/23 [History] Isosorbide Mononitrate ER [Imdur] 60 mg PO DAILY 02/19/23 [History] Magnesium Oxide [Mag-Ox] 400 mg PO Q48H 02/19/23 [History] Metformin Er 1,500 mg PO W/SUPPER 02/19/23 [History] Metoprolol Tartrate [Lopressor] 25 mg PO BID 02/19/23 [History] Sucralfate [Carafate] 1 gm PO AC-BID 02/19/23 [History] Tiotropium [place] [Spiriva Handihaler] 1 puff INHALATION RT-DAILY 02/19/23 [History] oxyCODONE-APAP 10-325MG [Percocet 10-325 mg] 1 tab PO Q8HR PRN 02/19/23 [History] predniSONE 10 mg PO DAILY 02/19/23 [History] Doxycycline [Vibramycin] 100 mg PO BID 3 Days #6 cap 02/23/23 [Rx] Formoterol Fumarate [Perforomist] 20 mcg INHALATION RT-BID 30 Days #1 unit 02/23/23 [Rx] Ipratropium-Albuterol Nebulize [Duoneb 0.5 mg-3 mg/3 ml Soln] 3 ml INHALATION RT-QID each 02/23/23 [Rx] Nicotine 21Mg/24Hr Patch [Habitrol] 1 patch TRANSDERM DAILY patch 02/23/23 [Rx] predniSONE 10 mg PO DAILY #30 tab 02/23/23 [Rx] Follow up Appointment(s)/Referral(s): Damir Teran MD [Primary Care Provider] - 1-2 days Gerson Chapman DO [Doctor of Osteopathic Medicine] - 1 Week rEnestina Mcfarland MD [STAFF PHYSICIAN] - 1 Week Patient Instructions/Handouts: Heart Palpitations (ED) Discharge Disposition: HOME SELF-CARE
[2023-02-23 09:18] LABS: Anion Gap 12.6 mmol/L (10.00-18.00); BUN/Creat Ratio 27.75 Ratio (12.00-20.00); Blood Urea Nitrogen 22.2 mg/dL (9.0-27.0); Carbon Dioxide 31.4 mmol/L (20.0-27.5); Non-African American GFR(CKD) 95.7 (60.0-200.0); Potassium 4.2 mmol/L (3.5-5.5)
== END 2023-02-23 11:32 | disposition home or self-care (01) ==
LOC: EC 15:42 → 3SCARD 17:09 → 2SICU 02-20 05:35 → 5NMEDONC 02-21 13:54
PROVIDERS: ADMIT Family Medicine; ATTEND Family Medicine
DX: J44.1 Chronic obstructive pulmonary disease with (acute) exacerbation (principal); I11.0 Hypertensive heart disease with heart failure; I50.23 Acute on chronic systolic (congestive) heart failure; K21.9 Gastro-esophageal reflux disease without esophagitis; E78.5 Hyperlipidemia, unspecified; I25.2 Old myocardial infarction; M19.90 Unspecified osteoarthritis, unspecified site; Z87.01 Personal history of pneumonia (recurrent); M32.14 Glomerular disease in systemic lupus erythematosus; G40.909 Epilepsy, unspecified, not intractable, without status epilepticus; G47.30 Sleep apnea, unspecified; G89.29 Other chronic pain; M54.9 Dorsalgia, unspecified; Z99.81 Dependence on supplemental oxygen; I69.354 Hemiplegia and hemiparesis following cerebral infarction affecting left non-dominant side; Z90.49 Acquired absence of other specified parts of digestive tract; Z95.5 Presence of coronary angioplasty implant and graft; Z98.890 Other specified postprocedural states; F41.9 Anxiety disorder, unspecified; F32.A Depression, unspecified; F17.210 Nicotine dependence, cigarettes, uncomplicated; Z82.49 Family history of ischemic heart disease and other diseases of the circulatory system; Z82.5 Family history of asthma and other chronic lower respiratory diseases; Z80.1 Family history of malignant neoplasm of trachea, bronchus and lung; Z79.02 Long term (current) use of antithrombotics/antiplatelets; Z79.52 Long term (current) use of systemic steroids; Z79.899 Other long term (current) drug therapy; Z88.0 Allergy status to penicillin; Z88.8 Allergy status to other drugs, medicaments and biological substances; Z88.6 Allergy status to analgesic agent; Z91.041 Radiographic dye allergy status
CPT/HCPCS: 96376 ×5; 96361 ×3; 96374; 96375; 99285; 36415; 94640 ×9; 94760; 93005; 93306; 84439; 83880; 80053 ×2; 80048 ×2; 84443 ×2; 83735 ×2; 84100 ×2; 84484; 85025 ×2; 85610; 85730; 83036; 87635; 71045; G0378 ×8; S4990 ×4; J2270 ×2; J1100; J2930 ×5; J7517 ×4; J7512; 96360

== ENCOUNTER → 2023-07-16 | Outpatient (CLI) | payer OTHER ==
--- NOTE | 2023-07-16 13:06 | FL ---
EXAMINATION TYPE: FL barium swallow DATE OF EXAM: 07/16/2023 CLINICAL INDICATION: 63 year-old male R13.10, dysphagia. Patient reports cervical spine surgery 25 ye ars ago with a hole in his throat. COMPARISON: None Total Fluoroscopy Time: 54 seconds DAP 143.13 mGycm2. 33 images obtained. FINDINGS: Initial swallow of thick barium for assessment of the cervical esophagus shows severe pharyngeal resi duals and palmira large aspiration. We attempted a repeat swallow and there is recurrence of palmira larg e aspiration. Frontal view shows a contrast bronchogram. We stopped the exam at this point. Only trace coating was present throughout the remainder of the tho racic esophagus which shows no obvious abnormality. IMPRESSION: 1. Contrast bronchogram as a result of severe aspiration. We only attempted two swallow and the sever e reflux occurred both times. Advise speech pathology evaluation. 2. Severe pharyngeal residuals. Consider GI referral as direct visualization may be helpful. Also, no te that the patient reports frequent episodes of pneumonia. 3. We terminated the exam after the second swallow and did not have the opportunity to assess the tho racic esophagus. Some trace contrast is present within the thoracic esophagus. Overall course and con tour shows no gross abnormality but assessment is otherwise very limited.
== END | disposition home or self-care (01) ==
LOC: RADUSWWP 10:50
PROVIDERS: ATTEND Family Medicine
DX: R13.10 Dysphagia, unspecified (principal); J18.9 Pneumonia, unspecified organism; K21.9 Gastro-esophageal reflux disease without esophagitis
CPT/HCPCS: 74220

== ENCOUNTER 2023-07-17 12:46 | Inpatient (IN) | payer OTHER ==
--- NOTE | 2023-07-17 14:28 | ED ---
General Adult HPI - General Chief complaint: Recheck/Abnormal Lab/Rx Stated complaint: sent/put feeding tube in Time Seen by Provider: 07/17/23 13:57 Source: patient Mode of arrival: wheelchair Limitations: no limitations - History of Present Illness Initial comments: 63-year-old male presenting to the ED with a chief complaint of abnormal labs. Per Dr. Teran, patient had a trach approximately 25 years ago. Since then, reports patient has had intermittent difficulty swallowing. This has recently been worsening over the past week. Today, failed swallow study and was advised to present to the ED for PEG tube placement. Currently, patient denies any new symptoms. No chest pain or shortness of breath. No other complaints. - Related Data Home Medications Medication Instructions Recorded Confirmed PARoxetine [Paxil] 20 mg PO DAILY 05/21/16 02/19/23 Phenytoin Sodium Extended 200 mg PO BID 05/21/16 02/19/23 [Dilantin] Clopidogrel Bisulfate [Clopidogrel] 75 mg PO DAILY 05/22/16 02/19/23 rOPINIRole HCL [Requip] 1 mg PO BID 08/30/16 02/19/23 Theophylline Anhydrous 400 mg PO DAILY 10/03/17 02/19/23 [Theophylline ER] Montelukast [Singulair] 10 mg PO DAILY 02/04/18 02/19/23 Nitroglycerin Sl Tabs [Nitrostat] 0.4 mg SUBLINGUAL Q5M PRN 02/04/18 02/19/23 Potassium Chloride [Klor-Con 20] 30 meq PO DAILY 02/04/18 02/19/23 allopurinoL [Zyloprim] 100 mg PO DAILY 02/04/18 02/19/23 mycophenolate mofetiL [Cellcept] 500 mg PO DAILY 08/05/19 02/19/23 Famotidine 20 mg PO DAILY 05/12/20 02/19/23 Valproic Acid [Depakene] 250 mg PO BID 08/07/21 02/19/23 Amitriptyline HCl [Elavil] 25 mg PO HS 02/19/23 02/19/23 Atorvastatin [Lipitor] 20 mg PO DAILY 02/19/23 02/19/23 Divalproex Sodium 250 mg PO BID 02/19/23 02/19/23 Fluticasone/Umeclidin/Vilanter 1 puff INHALATION RT-DAILY 02/19/23 02/19/23 [Trelegy Ellipta 100-62.5-25] Furosemide [Lasix] 40 mg PO BID 02/19/23 02/19/23 Isosorbide Mononitrate ER [Imdur] 60 mg PO DAILY 02/19/23 02/19/23 Magnesium Oxide [Mag-Ox] 400 mg PO Q48H 02/19/23 02/19/23 Metformin Er 1,500 mg PO W/SUPPER 02/19/23 02/19/23 Metoprolol Tartrate [Lopressor] 25 mg PO BID 02/19/23 02/19/23 Sucralfate [Carafate] 1 gm PO AC-BID 02/19/23 02/19/23 Tiotropium [place] [Spiriva 1 puff INHALATION RT-DAILY 02/19/23 02/19/23 Handihaler] oxyCODONE-APAP 10-325MG [Percocet 1 tab PO Q8HR PRN 02/19/23 02/19/23 10-325 mg] predniSONE 10 mg PO DAILY 02/19/23 02/19/23 Previous Rx's Medication Instructions Recorded Pregabalin [Lyrica] 200 mg PO TID #9 cap 11/18/22 modafiniL [Provigil] 200 mg PO DAILY #3 tab 11/18/22 Doxycycline [Vibramycin] 100 mg PO BID 3 Days #6 cap 02/23/23 Formoterol Fumarate [Perforomist] 20 mcg INHALATION RT-BID 30 Days 02/23/23 #1 unit Ipratropium-Albuterol Nebulize 3 ml INHALATION RT-QID each 02/23/23 [Duoneb 0.5 mg-3 mg/3 ml Soln] Nicotine 21Mg/24Hr Patch [Habitrol] 1 patch TRANSDERM DAILY patch 02/23/23 predniSONE 10 mg PO DAILY #30 tab 02/23/23 Allergies Allergy/AdvReac Type Severity Reaction Status Date / Time Penicillins Allergy Severe Swelling Verified 07/17/23 12:52 ibuprofen [From Motrin] Allergy Rash/Hives Verified 07/17/23 12:52 Iodinated Contrast Media Allergy Swelling Verified 07/17/23 12:52 [Iodinated Contrast- Oral and IV Dye] iodine Allergy Itching, Verified 07/17/23 12:52 Hives phenobarbital AdvReac Drowsiness Verified 07/17/23 12:52 Review of Systems ROS Statement: Those systems with pertinent positive or pertinent negative responses have been documented in the HPI. ROS Other: All systems not noted in ROS Statement are negative. 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, lupus, continuous oxygen use at 3L, no cpap used, kidney failure with hemodilaysis in the past, 3 TN's, hypoglycemia Last Myocardial Infarction Date:: 2015 History of Any Multi-Drug Resistant Organisms: None Reported Past Surgical History: Cholecystectomy, Heart Catheterization, Heart Catheterization With Stent, Tonsillectomy Additional Past Surgical History / Comment(s): STATES 7 cardiac stents, neck surgery, upper and lower scopes, spine surgery, pain procedures, Past Anesthesia/Blood Transfusion Reactions: No Reported Reaction Additional Past Anesthesia/Blood Transfusion Reaction / Comment(s): blood transfusion-no reaction, unknown family hx per spouse Date of Last Stent Placement:: 2021 Past Psychological History: Anxiety, Depression Smoking Status: Current every day smoker Past Alcohol Use History: None Reported Past Drug Use History: Marijuana - Past Family History Father Family Medical History: Myocardial Infarction ([place]) Additional Family Medical History / Comment(s): Father had a TN at the age of 56yrs. Mother Family Medical History: Asthma, Cancer, COPD Additional Family Medical History / Comment(s): Mother had lung cancer. General Exam Limitations: no limitations General appearance: alert, in no apparent distress ENT exam: Present: mucous membranes moist Respiratory exam: Present: other (Course breath sounds bilaterally.) Cardiovascular Exam: Present: regular rate, normal rhythm GI/Abdominal exam: Present: soft Neurological exam: Present: alert, oriented X3 Skin exam: Present: warm, dry Course Vital Signs 07/17/23 07/17/23 12:48 14:06 Temperature 98.9 F Pulse Rate 84 Respiratory 20 18 Rate Blood Pressure 118/78 O2 Sat by Pulse 96 Oximetry Medical Decision Making - Medical Decision Making Was pt. sent in by a medical professional or institution ([facility], [facility], urgent care, hospital, or senior care...) When possible be specific @ -Dr. Teran Did you speak to anyone other than the patient for history (EMS, parent, family, police, friend...)? What history was obtained from this source @ -No Did you review nursing and triage notes (agree or disagree)? Why? @ -I reviewed and agree with nursing and triage notes Were old charts reviewed (outside hosp., previous admission, EMS record, old EKG, old radiological studies, urgent care reports/EKG's, senior care records)? Report findings @ -No old charts were reviewed Differential Diagnosis (chest pain, altered mental status, abdominal pain women, abdominal pain men, vaginal bleeding, weakness, fever, dyspnea, syncope, headache, dizziness, GI bleed, back pain, seizure, CVA, palpatations, mental health, musculoskeletal)? @ -not applicable EKG interpreted by me (3pts min.). @ -Pending X-rays interpreted by me (1pt min.). @ -None done CT interpreted by me (1pt min.). @ -Pending at this time U/S interpreted by me (1pt. min.). @ -None done What testing was considered but not performed or refused? (CT, X-rays, U/S, labs)? Why? @ -None What meds were considered but not given or refused? Why? @ -None Did you discuss the management of the patient with other professionals (professionals i.e. [facility], THREAD [facility], lab, RT, psych nurse, social insurance administrator, custom shop worker, teacher, physics technical officer, supportive employment case manager)? Give summary @ -Case discussed with Dr. Teran. Patient will be admitted for PEG tube placement. NG tube placed in the ED and patient kept nothing by mouth. Consults will be placed to ENT due to this possibly stemming from remote injury 25 years ago and also GI for possible EGD. Plan of care discussed with patient and family who are in agreement. Was smoking cessation discussed for >3mins.? @ -No Was critical care preformed (if so, how long)? @ -No Were there social determinants of health that impacted care today? How? (Homelessness, low income, unemployed, alcoholism, drug addiction, transportation, low edu. Level, literacy, decrease access to med. care, penitentiary, rehab)? @ -No Was there de-escalation of care discussed even if they declined (Discuss DNR or withdrawal of care, Hospice)? DNR status @ -No What co-morbidities impacted this encounter? (DM, HTN, Smoking, COPD, CAD, Cancer, CVA, ARF, Chemo, Hep., AIDS, mental health diagnosis, sleep apnea, morbid obesity)? @ -None Was patient admitted / discharged? Hospital course, mention meds given and route, prescriptions, significant lab abnormalities, going to OR and other pertinent info. @ -Admission 53-year-old male presenting by his PCP for PEG tube placement. Patient will be admitted for this with consults to GI and ENT. Spoke to patient and family about plans of care and are in agreement. Undiagnosed new problem with uncertain prognosis? @ -No Drug Therapy requiring intensive monitoring for toxicity (Heparin, Nitro, Insulin, Cardizem)? @ -No Were any procedures done? @ -No Diagnosis/symptom? @ -Difficulty swallowing, PEG tube placement Acute, or Chronic, or Acute on Chronic? @ -Acute Uncomplicated (without systemic symptoms) or Complicated (systemic symptoms)? @ -Uncomplicated Side effects of treatment? @ -No Exacerbation, Progression, or Severe Exacerbation? @ -No Poses a threat to life or bodily function? How? (Chest pain, [place], [place], pneumonia, PE, COPD, DKA, ARF, appy, cholecystitis, CVA, Diverticulitis, Homicidal, Suicidal, threat to staff... and all critical care pts) @ -No Disposition Clinical Impression: Dysphagia Disposition: ADMITTED IP TO THIS HOSP Condition: Good Referrals: Damir Teran MD [Primary Care Provider] - 1-2 days Time of Disposition: 14:32
[2023-07-17] MEDS ORDERED: ACETAMINOPHEN TAB 325 MG TAB PO PRN (14:32)
[2023-07-17] MEDS ORDERED: ONDANSETRON 4 MG/2 ML VIAL IVP PRN (14:32)
[2023-07-17] MEDS ORDERED: NALOXONE 0.4 MG/ML 1 ML VIAL IV PRN (14:32)
[2023-07-17] MEDS ORDERED: diphenhydrAMINE 50 MG/ML 1 ML VIAL IVP STA (14:37)
[2023-07-17 14:53] LABS: Basophils % (A) 0 %; Eosinophils # (A) 0.2 k/uL (0-0.7); Eosinophils % (A) 1 %; HCT 51.4 % (39.0-53.0); HGB 16.9 gm/dL (13.0-17.5); Lymphocytes # (A) 2.7 k/uL (1.0-4.8); Lymphocytes % (A) 20 %; MCH 32.3 pg (25.0-35.0); MCHC 32.8 g/dL (31.0-37.0); MCV 98.3 fL (80.0-100.0); Mean Platelet Volume 8.2; Monocytes # (A) 0.5 k/uL (0-1.0); Monocytes % (A) 4 %; Neutrophils # (A) 10.2 k/uL (1.3-7.7); Neutrophils % (A) 74 %; Platelet Count 216 k/uL (150-450); RBC 5.23 m/uL (4.30-5.90); RDW 13.4 % (11.5-15.5); WBC 13.6 k/uL (3.8-10.6)
[2023-07-17 15:06] LABS: INR 0.9 (<1.2); Partial Thromboplastin Time 25.2 sec (22.0-30.0); Prothrombin Time 10.4 sec (10.0-12.5)
--- NOTE | 2023-07-17 15:06 | XR ---
EXAMINATION TYPE: XR chest 2V DATE OF EXAM: 07/17/2023 COMPARISON: 02/19/2023 TECHNIQUE: PA and lateral views submitted. HISTORY: Cough FINDINGS: Elevated left hemidiaphragm with bilateral subsegmental consolidation. Underlying emphysematous gaviria es with biapical pleural thickening. Arthropathy of the shoulders with diffuse osteopenia. Hypertroph ic and degenerative change of the spine. IMPRESSION: 1. COPD with basilar atelectasis or early infiltrate.
[2023-07-17 15:12] LABS: ALT 24 U/L (4-49); AST 23 U/L (17-59); African American GFR (CKD) >90 (>60 ml/min/1.73 sqM); Albumin 4.2 g/dL (3.5-5.0); Alkaline Phosphatase 135 U/L (38-126); Anion Gap 9 mmol/L; Blood Urea Nitrogen 13 mg/dL (9-20); Calcium 9.5 mg/dL (8.4-10.2); Carbon Dioxide 29 mmol/L (22-30); Chloride 103 mmol/L (98-107); Glucose 100 mg/dL (74-99); Non-African American GFR(CKD) >90 (>60 ml/min/1.73 sqM); Sodium 141 mmol/L (137-145); Total Bilirubin 0.8 mg/dL (0.2-1.3); Total Protein 7.3 g/dL (6.3-8.2)
[2023-07-17] MEDS: SODIUM CHLORIDE 0.9% 1,000 ML IV SCH (15:17)
[2023-07-17] MEDS ORDERED: methylPREDNISolone SOD SUCCI 125 MG/2 ML VIAL IV STA (16:25)
[2023-07-17] MEDS ORDERED: FAMOTIDINE 20 MG/2 ML VIAL IV STA (16:26)
[2023-07-17] MEDS: HYDROmorphone 1 MG/ML 1 ML SYRINGE IVP PRN (18:00)
--- NOTE | 2023-07-17 18:07 | CT ---
EXAMINATION TYPE: CT soft tissue neck w con DATE OF EXAM: 07/17/2023 HISTORY: Pt sent from speech therapy for peg tube placement per Dr. Jacobs due to failed swallow study this morning. Pt aspirated yesterday. Inpatient Stat read request. COMPARISON: 01/17/2021 CT DLP: 358 mGycm. Automated Exposure Control for Dose Reduction was Utilized. TECHNIQUE: CT scan of the neck is performed with IV Contrast, patient injected with 100 ml mL of Iso sergio 370, axial images are obtained, coronal and sagittal reformatted images are reviewed. FINDINGS: Imaging was obtained from the nasopharynx to the AP window. Airway: There is soft tissue thickening and indistinctness involving the glottic and supraglottic air way. At the moment of CT imaging there is no patent airway at the level of the glottis, presumably du e to redundant soft tissue at the moment of imaging. The airway is otherwise unremarkable. Parotid/submandibular glands: No gross abnormality seen. Lymph nodes: No adenopathy. Carotid/Vascular Structures: Unremarkable. Osseous Structures: No acute process or aggressive findings. Other: No significant incidentals. IMPRESSION: Airway findings as discussed.
[2023-07-18] MEDS: SODIUM CHLORIDE 0.9% 1,000 ML IV SCH ×3 (01:35→21:37)
--- NOTE | 2023-07-18 08:40 | P.CONS ---
History of Present Illness - Reason for Consult Consult date: 07/18/23 Dysphagia, need for PEG tube Requesting physician: Brett Fernandez - Chief Complaint Dysphagia - History of Present Illness This is a 63-year-old with multiple comorbidities including coronary artery disease status post ME, CVA, heart failure, COPD, GERD, hyperlipidemia, hy pertension, chronic renal disease, seizure disorder, sleep apnea, history of neck surgery 25 years ago with damage to the neck, and current every day smoker. He presented to the emergency department after undergoing a barium swallow evaluation which revealed severe aspiration and severe reflux. Exam was terminated due to severe aspiration and his PCP Dr. Teran sent him in for further evaluation and PEG tube placement.. Patient states 25 years ago he had neck surgery and they had asked that when he cut his throat and [place] apple causing difficulty now for the last several months with swallowing. It has become increasingly difficult to swallow and keep liquids and food down. States when he drinks or eats he is coughing it up and it comes right back up. States he lost about 40 pounds in the last couple months duration. He denies being on any anticoagulation. Denies shortness of breath, chest pain, abdominal pain, nausea or vomiting. He did undergo EGD and colonoscopy on 10/15/[address] Dimas. EGD with findings of erosive gastritis and small hiatal hernia. Colonoscopy significant for sigmoid polyp, rectal polyp status post polypectomy, reported as poor prep. Stomach biopsy revealed mild chronic gastritis comments: Polyps tubular adenoma. Workup Chest x-ray: COPD with basilar atelectasis or early infiltrate Soft tissue neck CT with contrast: Airway reports soft tissue thickening and indistinctness involving the glottic and supra glottic airway. At the moment of CT imaging there is no patent airway at the level of the glottis, presumably due to redundant soft tissue at the moment of imaging. The airway is otherwise unremarkable. Review of Systems REVIEW OF SYSTEMS: CARDIOPULMONARY: No chest pain or shortness of breath. Gastrointestinal: No reported abdominal or epigastric pain. Difficulty swallowing, often coughing and bringing food and liquid back. 40 pound weight loss over last couple months. No nausea or vomiting. No hematemesis, coffee- ground emesis. No rectal bleeding, or melena. GENITOURINARY: No dysuria or hematuria. MUSCULOSKELETAL: Reports normal range of motion. SKIN: No rashes. No jaundice. ENDOCRINE: No chills, fevers. 40 pound weight loss No polydipsia or polyuria. PSYCHIATRIC: Unremarkable. NEUROLOGY: No change in mental status. Denies dizziness, headache. ENT: Vision unremarkable. CONSTITUTIONAL: 40 pound weight loss. No fever, chills, night sweats. Past Medical History Past Medical History: Asthma, Coronary Artery Disease (CAD), Chest Pain / Angina, Heart Failure, COPD, CVA/TIA, GERD/Reflux, Hyperlipidemia, Hypertension, Myocardial Infarction ([place]), Osteoarthritis (OA), Pneumonia, Renal Disease, Seizure Disorder, Sleep Apnea/CPAP/BIPAP Additional Past Medical History / Comment(s): last seizure - 2014, hiatal hernia, chronic back pain, 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, lupus, continuous oxygen use at 3L, no cpap used, kidney failure with hemodilaysis in the past, 3 ME's, hypoglycemia Last Myocardial Infarction Date:: 2015 History of Any Multi-Drug Resistant Organisms: None Reported Past Surgical History: Cholecystectomy, Heart Catheterization, Heart Catheterization With Stent, Tonsillectomy Additional Past Surgical History / Comment(s): STATES 7 cardiac stents, neck surgery, upper and lower scopes, spine surgery, pain procedures, Past Anesthesia/Blood Transfusion Reactions: No Reported Reaction Additional Past Anesthesia/Blood Transfusion Reaction / Comm: blood transfusion- no reaction, unknown family hx per spouse Date of Last Stent Placement:: 2021 Past Psychological History: Anxiety, Depression Additional Psychological History / Comment(s): Pt resides with his spouse who is very helpful. He had very recent hospitalization and was to establish with Independent home care. Pt uses a cane or rollator walker. He has home oxygen. Pt drives. Pt is a diabetic but does not have a glucometer. Smoking Status: Current every day smoker Past Alcohol Use History: None Reported Additional Past Alcohol Use History / Comment(s): Pt started smoking in 1971 and was a 6 ppd smoker. He is now a 1/2 ppd smoker. Past Drug Use History: Marijuana - Past Family History Father Family Medical History: Myocardial Infarction (ME) Additional Family Medical History / Comment(s): Father had a ME at the age of 56yrs. Mother Family Medical History: Asthma, Cancer, COPD Additional Family Medical History / Comment(s): Mother had lung cancer. Medications and Allergies Home Medications Medication Instructions Recorded Confirmed Type PARoxetine [Paxil] 20 mg PO DAILY 05/21/16 07/17/23 History Phenytoin Sodium Extended 200 mg PO BID 05/21/16 07/17/23 History [Dilantin] rOPINIRole HCL [Requip] 1 mg PO BID 08/30/16 07/17/23 History Montelukast [Singulair] 10 mg PO DAILY 02/04/18 07/17/23 History Nitroglycerin Sl Tabs [Nitrostat] 0.4 mg SUBLINGUAL Q5M PRN 02/04/18 07/17/23 History allopurinoL [Zyloprim] 100 mg PO DAILY 02/04/18 07/17/23 History mycophenolate mofetiL [Cellcept] 500 mg PO DAILY 08/05/19 07/17/23 History Famotidine 20 mg PO DAILY 05/12/20 07/17/23 History Pregabalin [Lyrica] 200 mg PO TID #9 cap 11/18/22 07/17/23 Rx modafiniL [Provigil] 200 mg PO DAILY #3 tab 11/18/22 07/17/23 Rx Amitriptyline HCl [Elavil] 25 mg PO HS 02/19/23 07/17/23 History Atorvastatin [Lipitor] 20 mg PO DAILY 02/19/23 07/17/23 History Divalproex Sodium 250 mg PO BID 02/19/23 07/17/23 History Fluticasone/Umeclidin/Vilanter 1 puff INHALATION RT-DAILY 02/19/23 07/17/23 History [Trelegy Ellipta 100-62.5-25] Furosemide [Lasix] 60 mg PO BID 02/19/23 07/17/23 History Metoprolol Tartrate [Lopressor] 25 mg PO BID 02/19/23 07/17/23 History Sucralfate [Carafate] 1 gm PO AC-BID 02/19/23 07/17/23 History oxyCODONE-APAP 10-325MG [Percocet 1 tab PO Q6H PRN 02/19/23 07/17/23 History 10-325 mg] Albuterol Inhaler [Ventolin Hfa 1 - 2 puff INHALATION RT-Q6H PRN 07/17/23 07/17/23 History Inhaler] Albuterol Nebulized [Ventolin 2.5 mg INHALATION RT-Q6H PRN 07/17/23 07/17/23 History Nebulized] Docusate [Colace] 100 mg PO BID PRN 07/17/23 07/17/23 History Ipratropium-Albuterol Nebulize 3 ml INHALATION RT-QID PRN 07/17/23 07/17/23 History [Duoneb 0.5 mg-3 mg/3 ml Soln] Metformin Er 750mg 1,500 mg PO W/SUPPER PRN 07/17/23 07/17/23 History Mv-Min/Folic/K1/Lycopen/Lutein 1 tab PO DAILY 07/17/23 07/17/23 History [Centrum Silver Men Tablet] predniSONE 10 mg PO DAILY 07/17/23 07/17/23 History Allergies Allergy/AdvReac Type Severity Reaction Status Date / Time Penicillins Allergy Severe Swelling Verified 07/17/23 17:32 ibuprofen [From Motrin] Allergy Rash/Hives Verified 07/17/23 17:32 Iodinated Contrast Media Allergy Swelling Verified 07/17/23 17:32 [Iodinated Contrast- Oral and IV Dye] iodine Allergy Itching, Verified 07/17/23 17:32 Hives phenobarbital AdvReac Drowsiness Verified 07/17/23 17:32 Physical Exam Vitals: Vital Signs Temp Pulse Pulse Resp BP BP Pulse Ox 07/18/23 04:33 97.5 F L 67 18 144/90 92 L 07/17/23 20:23 98.2 F 73 17 138/85 93 L 07/17/23 19:52 98.1 F 72 18 115/97 98 07/17/23 18:22 75 18 125/82 94 L 07/17/23 17:00 73 118/73 96 07/17/23 16:30 75 118/73 95 07/17/23 16:00 74 143/86 95 07/17/23 15:30 85 143/86 94 L 07/17/23 14:30 81 124/55 97 07/17/23 14:11 77 98 07/17/23 14:06 18 07/17/23 12:48 98.9 F 84 20 118/78 96 Intake and Output 07/17/23 07/18/23 07/18/23 22:59 06:59 14:59 Other: Voiding Method Toilet Toilet # Voids 1 1 Weight 92.986 kg General appearance: The patient is alert, oriented, appears in no acute distress. HET: Head is normocephalic and atraumatic. Conjunctiva pink. Sclera anicteric. Neck: Supple without lymphadenopathy. Trachea midline. Heart: Regular. Lungs: Equal expansion, normal respiratory effort. Abdomen: Soft, nontender, nondistended with bowel sounds. No guarding or rigidity. Skin: No rashes. No jaundice. Extremities: Normal skin color and turgor. No pedal edema. Neurological: No focal deficits. Alert and oriented x3. Results CBC & Chem 7: 07/17/23 14:43 07/17/23 14:43 Labs: Abnormal Lab Results - Last 24 Hours (Table) 07/17/23 07/17/23 Range/Units 14:43 14:43 WBC 13.6 H (3.8-10.6) k/uL Neutrophils # 10.2 H (1.3-7.7) k/uL Creatinine 0.56 L (0.66-1.25) mg/dL Glucose 100 H (74-99) mg/dL Alkaline Phosphatase 135 H (38-126) U/L Comments: Chest x-ray: COPD with basilar atelectasis or early infiltrate Soft tissue neck CT with contrast: Airway reports soft tissue thickening and indistinctness involving the glottic and supra glottic airway. At the moment of CT imaging there is no patent airway at the level of the glottis, presumably due to redundant soft tissue at the moment of imaging. The airway is otherwise unremarkable. Assessment and Plan (1) Dysphagia Narrative/Plan: 63-year-old male with a history of cervical surgery 25 years ago where he states the surgeon had cut through his neck and throat further than he should. Patient has had some scar tissue. Over the last few years he has had some difficulty with swallowing however over the last several months it is becoming worse and he is now over the last month or so having more difficulty with keeping any solids and liquids down. He reports a 40 pound weight loss. Yesterday he underwent outpatient barium swallow showing severe aspiration. He had a CT of the neck showing soft tissue thickening involving the glottic and supraglottic airway. Gastroenterology consulted for dysphagia and requesting PEG tube placement for nutrition. We'll plan this afternoon. Keep nothing by mouth. Current Visit: Yes Status: Acute Code(s): R13.10 - DYSPHAGIA, UNSPECIFIED SNOMED Code(s): 41138652 (2) Abnormal computed tomography of soft tissue of neck Current Visit: Yes Status: Acute Code(s): R93.89 - ABNORMAL FINDINGS ON DX IMAGING OF OTH BODY STRUCTURES SNOMED Code(s): 649549654 (3) History of cervical spinal surgery Current Visit: Yes Status: Acute Code(s): Z98.890 - OTHER SPECIFIED POSTPROCEDURAL STATES SNOMED Code(s): 575785564 (4) Coronary artery disease Current Visit: Yes Status: Acute Code(s): I25.10 - ATHSCL HEART DISEASE OF [place] CORONARY ARTERY W/O ANG PCTRS SNOMED Code(s): 70574332 (5) COPD (chronic obstructive pulmonary disease) Current Visit: No Status: Acute Code(s): J44.9 - CHRONIC OBSTRUCTIVE PULMONARY DISEASE, UNSPECIFIED SNOMED Code(s): 13169480 (6) Chronic kidney disease Current Visit: No Status: Acute Code(s): N18.9 - CHRONIC KIDNEY DISEASE, UNSPECIFIED SNOMED Code(s): 504851419 (7) Congestive heart failure Current Visit: No Status: Acute Code(s): I50.9 - HEART FAILURE, UNSPECIFIED SNOMED Code(s): 71774745 (8) HTN (hypertension) Current Visit: No Status: Acute Code(s): I10 - ESSENTIAL (PRIMARY) HYPERTENSION SNOMED Code(s): 09465474 (9) History of seizure disorder Current Visit: No Status: Acute Code(s): Z86.69 - PERSONAL HISTORY OF DIS OF THE NERVOUS SYS AND SENSE ORGANS SNOMED Code(s): 670651978 (10) Nicotine dependence Current Visit: No Status: Acute Code(s): F17.200 - NICOTINE DEPENDENCE, UNSPECIFIED, UNCOMPLICATED SNOMED Code(s): 68522470 Plan: 1. Continue symptomatic and supportive care 2. Keep nothing by mouth 3. We will plan for EGD and PEG tube placement this afternoon 4. Consult to dietitian for PEG tube nutrition 5. ENT on consult, appreciate their recommendations 6. Consider neurology consultation regarding difficulty with swallowing following cervical surgery/stroke 7. Rest of medical care per primary medical team Thank you for this consultation, we will sign off after procedure today as there will be no GI in house for the next week. Dr. Dianelys Ya I agree with the dictator's note, documented as a scribe by Palmira Yeager.
[2023-07-18] MEDS: HYDROmorphone 1 MG/ML 1 ML SYRINGE IVP PRN ×2 (11:59→16:53)
--- NOTE | 2023-07-18 14:01 | P.HPIM ---
History of Present Illness Chief Complaint: Trouble swallowing This is a 63-year-old male well known to me. He has chronic respiratory failure. He continues to smoke. He has a history of lupus and Freytes. Over the past several months he has complaints of coughing hoarseness in trouble swallowing. We have been unable to schedule him with an ear nose and throat doctor. A barium swallow test was ordered for evaluation, and he was found to be aspirating. He modified barium swallow testWas ordered and they were unable to not have him aspirate even with honey thick liquids. He came in through the emergency room and is now admitted for peg tube placement so that he may remain NPO as to not continue to develop pneumonia. At this time he has no complaints and is waiting his surgery. Review of Systems All systems: negative 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, lupus, continuous oxygen use at 3L, no cpap used, kidney failure with hemodilaysis in the past, 3 KS's, hypoglycemia Last Myocardial Infarction Date:: 2015 History of Any Multi-Drug Resistant Organisms: None Reported Past Surgical History: Cholecystectomy, Heart Catheterization, Heart Ca theterization With Stent, Tonsillectomy Additional Past Surgical History / Comment(s): STATES 7 cardiac stents, neck surgery, upper and lower scopes, spine surgery, pain procedures, Past Anesthesia/Blood Transfusion Reactions: No Reported Reaction Additional Past Anesthesia/Blood Transfusion Reaction / Comment(s): blood tra nsfusion-no reaction, unknown family hx per spouse Date of Last Stent Placement:: 2021 Past Psychological History: Anxiety, Depression Additional Psychological History / Comment(s): Pt resides with his spouse who is very helpful. He had very recent hospitalization and was to establish with [facility] home [facility]. Pt uses a cane or rollator walker. He has home oxygen. Pt drives. Pt is a diabetic but does not have a glucometer. Smoking Status: Current every day smoker Past Alcohol Use History: None Reported Additional Past Alcohol Use History / Comment(s): Pt started smoking in 1971 and was a 6 ppd smoker. He is now a 1/2 ppd smoker. Past Drug Use History: Marijuana - Past Family History Father Family Medical History: Myocardial Infarction ([place]) Additional Family Medical History / Comment(s): Father had a [place] at the age of 56yrs. Mother Family Medical History: Asthma, Cancer, COPD Additional Family Medical History / Comment(s): Mother had lung cancer. Medications and Allergies Home Medications Medication Instructions Recorded Confirmed Type PARoxetine [Paxil] 20 mg PO DAILY 05/21/16 07/17/23 History Phenytoin Sodium Extended 200 mg PO BID 05/21/16 07/17/23 History [Dilantin] rOPINIRole HCL [Requip] 1 mg PO BID 08/30/16 07/17/23 History Montelukast [Singulair] 10 mg PO DAILY 02/04/18 07/17/23 History Nitroglycerin Sl Tabs [Nitrostat] 0.4 mg SUBLINGUAL Q5M PRN 02/04/18 07/17/23 History allopurinoL [Zyloprim] 100 mg PO DAILY 02/04/18 07/17/23 History mycophenolate mofetiL [Cellcept] 500 mg PO DAILY 08/05/19 07/17/23 History Famotidine 20 mg PO DAILY 05/12/20 07/17/23 History Pregabalin [Lyrica] 200 mg PO TID #9 cap 11/18/22 07/17/23 Rx modafiniL [Provigil] 200 mg PO DAILY #3 tab 11/18/22 07/17/23 Rx Amitriptyline HCl [Elavil] 25 mg PO HS 02/19/23 07/17/23 History Atorvastatin [Lipitor] 20 mg PO DAILY 02/19/23 07/17/23 History Divalproex Sodium 250 mg PO BID 02/19/23 07/17/23 History Fluticasone/Umeclidin/Vilanter 1 puff INHALATION RT-DAILY 02/19/23 07/17/23 History [Trelegy Ellipta 100-62.5-25] Furosemide [Lasix] 60 mg PO BID 02/19/23 07/17/23 History Metoprolol Tartrate [Lopressor] 25 mg PO BID 02/19/23 07/17/23 History Sucralfate [Carafate] 1 gm PO AC-BID 02/19/23 07/17/23 History oxyCODONE-APAP 10-325MG [Percocet 1 tab PO Q6H PRN 02/19/23 07/17/23 History 10-325 mg] Albuterol Inhaler [Ventolin Hfa 1 - 2 puff INHALATION RT-Q6H PRN 07/17/2306/29 History Inhaler] Albuterol Nebulized [Ventolin 2.5 mg INHALATION RT-Q6H PRN 07/17/23 07/17/23 History Nebulized] Docusate [Colace] 100 mg PO BID PRN 07/17/23 07/17/23 History Ipratropium-Albuterol Nebulize 3 ml INHALATION RT-QID PRN 07/17/23 07/17/23 History [Duoneb 0.5 mg-3 mg/3 ml Soln] Metformin Er 750mg 1,500 mg PO W/SUPPER PRN 07/17/23 07/17/23 History Mv-Min/Folic/K1/Lycopen/Lutein 1 tab PO DAILY 07/17/23 07/17/23 History [Centrum Silver Men Tablet] predniSONE 10 mg PO DAILY 07/17/23 07/17/23 History Allergies Allergy/AdvReac Type Severity Reaction Status Date / Time Penicillins Allergy Severe Swelling Verified 07/17/23 17:32 ibuprofen [From Motrin] Allergy Rash/Hives Verified 07/17/23 17:32 Iodinated Contrast Media Allergy Swelling Verified 07/17/23 17:32 [Iodinated Contrast- Oral and IV Dye] iodine Allergy Itching, Verified 07/17/23 17:32 Hives phenobarbital AdvReac Drowsiness Verified 07/17/23 17:32 Physical Exam Vitals: Vital Signs Temp Pulse Pulse Resp BP BP Pulse Ox 07/18/23 07:45 97.5 F L 72 20 154/85 94 L 07/18/23 04:33 97.5 F L 67 18 144/90 92 L 07/17/23 20:23 98.2 F 73 17 138/85 93 L 07/17/23 19:52 98.1 F 72 18 115/97 98 07/17/23 18:22 75 18 125/82 94 L 07/17/23 17:00 73 118/73 96 07/17/23 16:30 75 118/73 95 07/17/23 16:00 74 143/86 95 07/17/23 15:30 85 143/86 94 L 07/17/23 14:30 81 124/55 97 07/17/23 14:11 77 98 07/17/23 14:06 18 Intake and Output 07/17/23 07/18/23 07/18/23 22:59 06:59 14:59 Other: Voiding Method Toilet Toilet # Voids 1 1 Weight 92.986 kg General: The patient is awake and alert, in minimal distress, and does not appear acutely ill at this time HEENT: PERRLA, EOMI, normal oropharynx Neck: The neck is supple, there is no thyromegaly, lymphadenopathy, tenderness or JVD. Cardiovascular: S1S2 is normal, There is a regular rate and rhythm. No murmur, rub or gallop is appreciated. Respiratory: Lungs are Course to auscultation bilaterally, respirations are non-labored, breath sounds are equal. Gastrointestinal: Soft, non-distended, without masses or organomegaly noted. There is no rebound or guarding present. Bowel sounds are unremarkable. Musculoskeletal: Normal ROM, no tenderness, There is no pedal edema. There is no calf tenderness or swelling. No cords were appreciated. Neurological: CN II-XII intact, there are no obvious motor or sensory deficits. Coordination appears grossly intact. Speech is normal.he is awake alert and Results CBC & Chem 7: 07/17/23 14:43 07/17/23 14:43 Labs: Abnormal Lab Results - Last 24 Hours (Table) 07/17/23 07/17/23 Range/Units 14:43 14:43 WBC 13.6 H (3.8-10.6) k/uL Neutrophils # 10.2 H (1.3-7.7) k/uL Creatinine 0.56 L (0.66-1.25) mg/dL Glucose 100 H (74-99) mg/dL Alkaline Phosphatase 135 H (38-126) U/L Chest x-ray: report reviewed Thrombosis Risk Factor Assmnt - DVT/VTE Prophylaxis DVT/VTE Prophylaxis: Pharmacologic Prophylaxis ordered Assessment and Plan (1) Aspiration into airway Current Visit: Yes Status: Acute Code(s): T17.908A - UNSP FB IN RESP TRACT, PART UNSP CAUSING OTH INJURY, INIT SNOMED Code(s): 788061467 (2) Abnormal computed tomography of soft tissue of neck Current Visit: Yes Status: Acute Code(s): R93.89 - ABNORMAL FINDINGS ON DX IMAGING OF OTH BODY STRUCTURES SNOMED Code(s): 874945612 (3) Coronary artery disease Current Visit: Yes Status: Acute Code(s): I25.10 - ATHSCL HEART DISEASE OF [place] CORONARY ARTERY W/O ANG PCTRS SNOMED Code(s): 95885256 (4) Dysphagia Current Visit: Yes Status: Acute Code(s): R13.10 - DYSPHAGIA, UNSPECIFIED SNOMED Code(s): 04883701 (5) History of cervical spinal surgery Current Visit: Yes Status: Acute Code(s): Z98.890 - OTHER SPECIFIED POSTPROCEDURAL STATES SNOMED Code(s): 339223883 (6) COPD (chronic obstructive pulmonary disease) Current Visit: No Status: Acute Code(s): J44.9 - CHRONIC OBSTRUCTIVE PULMONARY DISEASE, UNSPECIFIED SNOMED Code(s): 98718754 (7) Chronic kidney disease Current Visit: No Status: Acute Code(s): N18.9 - CHRONIC KIDNEY DISEASE, UNSPECIFIED SNOMED Code(s): 834999588 (8) Chronic systolic (congestive) heart failure Current Visit: No Status: Acute Code(s): I50.22 - CHRONIC SYSTOLIC (CONGESTIVE) HEART FAILURE SNOMED Code(s): 373220474 (9) HTN (hypertension) Current Visit: No Status: Acute Code(s): I10 - ESSENTIAL (PRIMARY) HYPER TENSION SNOMED Code(s): 41496622 (10) History of seizure disorder Current Visit: No Status: Acute Code(s): Z86.69 - PERSONAL HISTORY OF DIS OF THE NERVOUS SYS AND SENSE ORGANS SNOMED Code(s): 278287425 (11) Hypoxemia Current Visit: No Status: Acute Code(s): R09.02 - HYPOXEMIA SNOMED Code(s): 747579878 (12) Ischemic heart disease Current Visit: No Status: Acute Code(s): I25.9 - CHRONIC ISCHEMIC HEART DISEASE, UNSPECIFIED SNOMED Code(s): 406393043 (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
[2023-07-18] MEDS ORDERED: PROPOFOL 10 MG/ML 20 ML VIAL IV ONE (16:03)
[2023-07-18] MEDS ORDERED: LIDOCAINE 1% INJ 10MG/ML (20 ML MDV) ONE (16:03)
[2023-07-18] MEDS ORDERED: IV FLUID CONTINUATION 1,000 ML IV ONE (16:08)
--- NOTE | 2023-07-18 16:29 | P.PCN ---
Date of Procedure: 07/18/23 Procedure(s) Performed: BRIEF HISTORY: Patient is a 63-year-old, pleasant, white male admitted to the hospital with difficulty swallowing and coughing for the last 2 months duration. He had a modified barium swallow done which revealed severe aspiration and hence he scheduled for an upper endoscopy with a PEG tube placement. Has prior history of CVA in the past.. PROCEDURE PERFORMED: Esophagogastroduodenoscopy with PEG tube placement. PREOPERATIVE DIAGNOSIS: Oropharyngeal dysphagia/severe aspiration on modified barium swallow. IV sedation per anesthesia. PROCEDURE: After informed consent was obtained, the patient was brought into the endoscopy unit. IV sedation was administered by Anesthesia under continuous monitoring. Initially the Olympus GIF-140 video endoscope was inserted into the mouth. Esophagus intubated without any difficulty. It was gradually advanced into the stomach and duodenum and carefully examined. The bulb and the second part of the duodenum appeared normal. The scope at this time was withdrawn to the stomach, adequately insufflated with air, and upon careful examination, mucosa of the antrum, body, cardia and the fundus appeared normal. The scope was then withdrawn into the esophagus. The GE junction was located at 39 cm from the incisors. The esophagus appeared normal. At this time the scope was advanced into the stomach and adequately insufflated with air. Adequate blood transillumination was achieved on the anterior abdominal wall. At the site of maximal indentation and transillumination 1% Xylocaine was inserted into the skin. Small incision was made and the trocar and cannula was passed into the abdominal cavity without any difficulty. The trocar was removed and a wire was passed through the cannula which was held by the snare that was passed with the scope. The scope was gently withdrawn along with the guidewire out of the mouth. A 20-[place] PEG tube was passed over the guidewire and was gently advanced into the mouth and esophagus and stomach was gently pulled from the anterior abdominal wall until the internal bumper appeared to be in secure position. External bumper wasn't too centimeter mary carmen. Repeat upper endoscopy was done and internal bumper appeared to be in good position. The patient tolerated the procedure well. IMPRESSION: 1. Successful 20-[place] replacement as described above. 2. Normal-appearing esophagus with no evidence of esophagitis or esophageal stricture. RECOMMENDATIONS: The findings of this examination were discussed with the patient . He will remain nothing by mouth for now. The PEG tube can be used for feeds and medications tomorrow morning at 8 AM..
[2023-07-18] MEDS: NICOTINE 21MG/24HR PATCH TRANSDERM SCH (17:27)
[2023-07-18] MEDS: HYDROmorphone 0.5 MG/0.5 ML SYRINGE IVP PRN (23:48)
[2023-07-19] MEDS: HYDROmorphone 0.5 MG/0.5 ML SYRINGE IVP PRN (05:49)
[2023-07-19] MEDS: SODIUM CHLORIDE 0.9% 1,000 ML IV SCH ×2 (05:52→17:54)
[2023-07-19] MEDS ORDERED: DOCUSATE 100 MG CAP PO PRN (08:22)
[2023-07-19] MEDS ORDERED: ALBUTEROL NEBULIZED 2.5 MG/3 ML INHALATION PRN (08:22)
[2023-07-19] MEDS: NICOTINE 21MG/24HR PATCH TRANSDERM SCH (08:22)
[2023-07-19] MEDS ORDERED: NITROGLYCERIN SL TABS 0.4 MG TAB SUBLINGUAL PRN (08:22)
[2023-07-19] MEDS ORDERED: DIVALPROEX 250 MG TABLET.DR PO SCH (09:00)
--- NOTE | 2023-07-19 09:12 | P.PN ---
Subjective This is a 63-year-old male well known to me. He has chronic respiratory failure. He continues to smoke. He has a history of lupus and Freytes. Over the past several months he has complaints of coughing hoarseness in trouble swallowing. We have been unable to schedule him with an ear nose and throat doctor. A barium swallow test was ordered for evaluation, and he was found to be aspirating. He modified barium swallow testWas ordered and they were unable to not have him aspirate even with honey thick liquids. He came in through the emergency room and is now admitted for peg tube placement so that he may remain NPO as to not continue to develop pneumonia. At this time he has no complaints and is waiting his surgery. 07/19/2023: Patient is postop day 1 PEG tube placement for severe aspiration. EGD failed to show any significant strictures or abnormalities. ENT is unavailable to me bedside procedures at this time. General surgery and signed off as gastric urology perform the PEG tube. Patient's home medications will be restarted. Dietary will recommend feeding for him. He denies any chest pains pressures at this time. He does have ongoing chronic low back pain. Has been receiving Dilaudid for this. He is a known heavy smoker and has a nicotine patch ordered. He has oxygen-dependent COPD along with lupus nephritis and mul tiple other comorbidities. Currently the patient denies any chest pains or pressures. Just the shortness breath with exertion. Objective - Vital Signs Vital signs: Vital Signs Temp 98.1 F 07/19/23 07:20 Pulse 82 07/19/23 07:20 Resp 18 07/19/23 07:20 BP 145/84 07/19/23 07:20 Pulse Ox 95 07/19/23 07:20 FiO2 Intake & Output 07/18/23 07/19/23 07/19/23 18:59 06:59 18:59 Intake Total 100 Balance 100 Weight 92.986 kg Intake: IV 100 Other: Voiding Method Toilet Toilet - Exam General: The patient is awake and alert, in no distress, is chronically ill, oxygen in place Neck: The neck is supple, there is no thyromegaly, lymphadenopathy, tenderness or JVD. Cardiovascular: S1S2 is normal, There is a regular rate and rhythm. No rub or gallop is appreciated. 1/6 systolic murmur Respiratory: Lungs are coarse but equal bilaterally with no active wheezes rales or crackles at this time. Gastrointestinal: Soft, non-distended, non-tender abdomen without masses or organomegaly noted. There is no rebound or guarding present. Bowel sounds are unremarkable. PEG tube is clean dry and intact Musculoskeletal: Normal ROM, no tenderness, There is no pedal edema. There is no calf tenderness or swelling. No cords were appreciated. Neurological: CN II-XII intact, there are no obvious motor or sensory deficits. Coordination appears grossly intact. Speech is normal. Skin: Skin is warm and dry and no rashes or lesions are noted. - Labs CBC & Chem 7: 07/17/23 14:43 07/17/23 14:43 Assessment and Plan (1) Aspiration into airway Current Visit: Yes Status: Acute Code(s): T17.908A - UNSP FB IN RESP TRACT, PART UNSP CAUSING OTH INJURY, INIT SNOMED Code(s): 071082737 (2) Abnormal computed tomography of soft tissue of neck Current Visit: Yes Status: Acute Code(s): R93.89 - ABNORMAL FINDINGS ON DX IMAGING OF OTH BODY STRUCTURES SNOMED Code(s): 212149687 (3) Coronary artery disease Current Visit: Yes Status: Acute Code(s): I25.10 - ATHSCL HEART DISEASE OF [place] CORONARY ARTERY W/O ANG PCTRS SNOMED Code(s): 78156570 (4) Dysphagia Current Visit: Yes Status: Acute Code(s): R13.10 - DYSPHAGIA, UNSPECIFIED SNOMED Code(s): 34085445 (5) History of cervical spinal surgery Current Visit: Yes Status: Acute Code(s): Z98.890 - OTHER SPECIFIED POSTPROCEDURAL STATES SNOMED Code(s): 486891589 (6) COPD (chronic obstructive pulmonary disease) Current Visit: No Status: Acute Code(s): J44.9 - CHRONIC OBSTRUCTIVE PULMONARY DISEASE, UNSPECIFIED SNOMED Code(s): 82262796 (7) Chronic kidney disease Current Visit: No Status: Acute Code(s): N18.9 - CHRONIC KIDNEY DISEASE, UNSPECIFIED SNOMED Code(s): 585922631 (8) Chronic systolic (congestive) heart failure Current Visit: No Status: Acute Code(s): I50.22 - CHRONIC SYSTOLIC (CONGESTIVE) HEART FAILURE SNOMED Code(s): 271307408 (9) HTN (hypertension) Current Visit: No Status: Acute Code(s): I10 - ESSENTIAL (PRIMARY) HYPERTENSION SNOMED Code(s): 40757228 (10) History of seizure disorder Current Visit: No Status: Acute Code(s): Z86.69 - PERSONAL HISTORY OF DIS OF THE NERVOUS SYS AND SENSE ORGANS SNOMED Code(s): 838511681 (11) Hypoxemia Current Visit: No Status: Acute Code(s): R09.02 - HYPOXEMIA SNOMED Code(s): 823949776 (12) Ischemic heart disease Current Visit: No Status: Acute Code(s): I25.9 - CHRONIC ISCHEMIC HEART DISEASE, UNSPECIFIED SNOMED Code(s): 981571010 (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 Current Visit: No Status: Acute Code(s): M32.14 - GLOMERULAR DISEASE IN SYSTEMIC LUPUS ERYTHEMATOSUS SNOMED Code(s): 43224813 (14) Nicotine addiction Current Visit: No Status: Acute Code(s): F17.200 - NICOTINE DEPENDENCE, UNSPECIFIED, UNCOMPLICATED SNOMED Code(s): 14907980 (15) Type 2 diabetes mellitus without complications Current Visit: No Status: Acute Code(s): E11.9 - TYPE 2 DIABETES MELLITUS WITHOUT COMPLICATIONS SNOMED Code(s): 324973512 Plan: I will start PEG tube feedings with his dietary see him. He can receive some medications that can be crushed through the PEG tube, otherwise they can be changed to liquid if possible. Wait on further recommendations from GI. Repeat labs in a.m., he'll be reevaluated in the next 24 hours.
[2023-07-19] MEDS: IPRATROPIUM-ALBUTEROL 3 ML NEB INHALATION PRN ×4 (09:19→20:50)
[2023-07-19] MEDS: SYMBICORT 80-4.5 MCG INHALER INHALATION SCH (09:19)
[2023-07-19] MEDS: IPRATROPIUM 0.5 MG/2.5 ML NEBU INHALATION SCH ×4 (09:20→20:50)
[2023-07-19] MEDS: FAMOTIDINE 20 MG TAB PO SCH (09:42)
[2023-07-19] MEDS: MONTELUKAST 10 MG TAB PO SCH (09:42)
[2023-07-19] MEDS: FUROSEMIDE 20 MG TAB PO SCH ×2 (09:42→17:54)
[2023-07-19] MEDS: allopurinoL 100 MG TAB PO SCH (09:42)
[2023-07-19] MEDS: PARoxetine 20 MG TAB PO SCH (09:43)
[2023-07-19] MEDS: METOPROLOL TARTRATE 25 MG TAB PO SCH ×2 (09:43→20:38)
[2023-07-19 09:44] LABS: Basophils # (A) 0.03 X 10*3/uL (0.00-0.10); Basophils % (A) 0.2 %; Eosinophils # (A) 0.09 X 10*3/uL (0.04-0.35); Eosinophils % (A) 0.7 %; HGB 15.2 d/dL (13.0-17.0); Lymphocytes # (A) 2.36 X 10*3/uL (0.90-5.00); Lymphocytes % (A) 17.3 %; MCH 31.7 pg (27.0-32.0); MCHC 31.7 d/dL (32.0-37.0); MCV 100.2 FL (80.0-97.0); Mean Platelet Volume 10.7 FL (9.5-12.2); Monocytes % (A) 6.6 %; NRBC Per 100 WBC 0 X 10*3/uL (0.00-0.01); Neutrophils # (A) 10.22 X 10*3/uL (1.80-7.70); Neutrophils % (A) 74.8 %; Platelet Count 168 X 10*3/uL (140-440); RBC 4.79 X 10*6/uL (4.40-5.60); RDW 13.2 % (11.5-14.5); WBC 13.65 X 10*3/uL (4.50-10.00)
[2023-07-19] MEDS: PHENYTOIN SODIUM EXTENDED 100 MG CAP PO SCH ×2 (09:44→20:38)
[2023-07-19] MEDS: VALPROIC ACID ORAL SOLN 250 MG/5 ML CUP PEG/G-TUBE SCH ×2 (09:44→20:38)
[2023-07-19 09:52] LABS: ALT 27 U/L (10-49); AST 23 U/L (14-35); Albumin 3.9 d/dL (3.8-4.9); Albumin/Globulin Ratio 1.77 Ratio (1.60-3.17); Alkaline Phosphatase 155 U/L (41-126); BUN/Creat Ratio 14.57 Ratio (12.00-20.00); Blood Urea Nitrogen 10.2 mg/dL (9.0-27.0); Calcium 9.2 mg/dL (8.7-10.3); Carbon Dioxide 27.3 mmol/L (21.6-31.8); Chloride 105 mmol/L (96-109); Globulin 2.2 d/dL (1.6-3.3); Glucose 111 mg/dL (70-110); Sodium 145 mmol/L (135-145); Total Bilirubin 0.6 mg/dL (0.3-1.2); Total Protein 6.1 d/dL (6.2-8.2)
[2023-07-19] MEDS: ATORVASTATIN 20 MG TAB PO SCH (10:32)
[2023-07-19] MEDS: HYDROmorphone 1 MG/ML 1 ML SYRINGE IVP PRN ×2 (11:58→18:44)
[2023-07-19] MEDS: PREGABALIN 100 MG CAP PO SCH ×3 (11:59→20:38)
[2023-07-19] MEDS: AMITRIPTYLINE HCL 25 MG TAB PO SCH (20:38)
[2023-07-20] MEDS: SODIUM CHLORIDE 0.9% 1,000 ML IV SCH ×3 (02:43→23:00)
[2023-07-20] MEDS: HYDROmorphone 0.5 MG/0.5 ML SYRINGE IVP PRN ×2 (03:32→06:14)
[2023-07-20] MEDS: IPRATROPIUM-ALBUTEROL 3 ML NEB INHALATION PRN ×3 (09:34→16:28)
[2023-07-20] MEDS: IPRATROPIUM 0.5 MG/2.5 ML NEBU INHALATION SCH ×4 (09:34→21:48)
[2023-07-20] MEDS: PARoxetine 20 MG TAB PO SCH (09:50)
[2023-07-20] MEDS: PHENYTOIN SODIUM EXTENDED 100 MG CAP PO SCH ×2 (09:50→22:27)
[2023-07-20] MEDS: METOPROLOL TARTRATE 25 MG TAB PO SCH ×2 (09:51→21:17)
[2023-07-20] MEDS: VALPROIC ACID ORAL SOLN 250 MG/5 ML CUP PEG/G-TUBE SCH ×2 (09:51→22:27)
[2023-07-20] MEDS: FAMOTIDINE 20 MG TAB PO SCH (09:51)
[2023-07-20] MEDS: FUROSEMIDE 20 MG TAB PO SCH ×2 (09:51→17:13)
[2023-07-20] MEDS: allopurinoL 100 MG TAB PO SCH (09:51)
[2023-07-20] MEDS: HYDROmorphone 1 MG/ML 1 ML SYRINGE IVP PRN (09:51)
[2023-07-20] MEDS: ATORVASTATIN 20 MG TAB PO SCH (09:51)
[2023-07-20] MEDS: MONTELUKAST 10 MG TAB PO SCH (09:51)
[2023-07-20] MEDS: NICOTINE 21MG/24HR PATCH TRANSDERM SCH ×2 (09:54→10:11)
[2023-07-20] MEDS: PREGABALIN 100 MG CAP PO SCH ×3 (10:11→22:26)
--- NOTE | 2023-07-20 11:20 | P.PN ---
Subjective This is a 63-year-old male well known to me. He has chronic respiratory failure. He continues to smoke. He has a history of lupus and Freytes. Over the past several months he has complaints of coughing hoarseness in trouble swallowing. We have been unable to schedule him with an ear nose and throat doctor. A barium swallow test was ordered for evaluation, and he was found to be aspirating. He modified barium swallow testWas ordered and they were unable to not have him aspirate even with honey thick liquids. He came in through the emergency room and is now admitted for peg tube placement so that he may remain NPO as to not continue to develop pneumonia. At this time he has no complaints and is waiting his surgery. 07/19/2023: Patient is postop day 1 PEG tube placement for severe aspiration. EGD failed to show any significant strictures or abnormalities. ENT is unavailable to me bedside procedures at this time. General surgery and signed off as gastric urology perform the PEG tube. Patient's home medications will be restarted. Dietary will recommend feeding for him. He denies any chest pains pressures at this time. He does have ongoing chronic low back pain. Has been receiving Dilaudid for this. He is a known heavy smoker and has a nicotine patch ordered. He has oxygen-dependent COPD along with lupus nephritis and mul tiple other comorbidities. Currently the patient denies any chest pains or pressures. Just the shortness breath with exertion. 07/20/2023: Patient is reevaluated today. He is postop day #2 of PEG tube placement. He has tube feedings running at this time. Jevity 1.5 at 20 mL an hour with a goal of increasing it by 10 ML's every 8 hours to a goal of 39 miles per hour. 30 mL flush every 4 hours. At this time all his medications and converted to PEG tube feedings with the exception of her CellCept. This may not be crushed. Dr. Shannon and consult it since this was originally for post nephr itis. Patient denies any chest pains pressures, as his chronic shortness of breath. Denies any nausea or nausea or vomiting. Objective - Vital Signs Vital signs: Vital Signs Temp 98.3 F 07/20/23 07:30 Pulse 72 07/20/23 09:50 Resp 19 07/20/23 07:30 BP 103/62 07/20/23 07:30 Pulse Ox 94 L 07/20/23 07:30 FiO2 Intake & Output 07/19/23 07/20/23 07/20/23 18:59 06:59 18:59 Other: Voiding Method Toilet Toilet Urinal - Exam General: The patient is awake and alert, in no distress, is chronically ill, oxygen in place Neck: The neck is supple, there is no thyromegaly, lymphadenopathy, tenderness or JVD. Cardiovascular: S1S2 is normal, There is a regular rate and rhythm. No rub or gallop is appreciated. 1/6 systolic murmur Respiratory: Lungs are coarse but equal bilaterally with no active wheezes rales or crackles at this time. Improved from 1 day ago. Gastrointestinal: Soft, non-distended, non-tender abdomen without masses or organomegaly noted. There is no rebound or guarding present. Bowel sounds are u nremarkable. PEG tube is clean dry and intact Musculoskeletal: Normal ROM, no tenderness, There is no pedal edema. There is no calf tenderness or swelling. No cords were appreciated. Neurological: CN II-XII intact, there are no obvious motor or sensory deficits. Coordination appears grossly intact. Speech is normal. Skin: Skin is warm and dry and no rashes or lesions are noted. - Labs CBC & Chem 7: 07/19/23 04:01 07/19/23 04:01 Assessment and Plan (1) Aspiration into airway Current Visit: Yes Status: Acute Code(s): T17.908A - UNSP FB IN RESP TRACT, PART UNSP CAUSING OTH INJURY, INIT SNOMED Code(s): 941998821 (2) Abnormal computed tomography of soft tissue of neck Current Visit: Yes Status: Acute Code(s): R93.89 - ABNORMAL FINDINGS ON DX IMAGING OF OTH BODY STRUCTURES SNOMED Code(s): 734320807 (3) Coronary artery disease Current Visit: Yes Status: Acute Code(s): I25.10 - ATHSCL HEART DISEASE OF [place] CORONARY ARTERY W/O ANG PCTRS SNOMED Code(s): 20780397 (4) Dysphagia Current Visit: Yes Status: Acute Code(s): R13.10 - DYSPHAGIA, UNSPECIFIED SNOMED Code(s): 14297174 (5) History of cervical spinal surgery Current Visit: Yes Status: Acute Code(s): Z98.890 - OTHER SPECIFIED POSTPROCEDURAL STATES SNOMED Code(s): 411175595 (6) COPD (chronic obstructive pulmonary disease) Current Visit: No Status: Acute Code(s): J44.9 - CHRONIC OBSTRUCTIVE PULMONARY DISEASE, UNSPECIFIED SNOMED Code(s): 79111019 (7) Chronic kidney disease Current Visit: No Status: Acute Code(s): N18.9 - CHRONIC KIDNEY DISEASE, UNSPECIFIED SNOMED Code(s): 761570558 (8) Chronic systolic (congestive) heart failure Current Visit: No Status: Acute Code(s): I50.22 - CHRONIC SYSTOLIC (CONGESTIVE) HEART FAILURE SNOMED Code(s): 017169600 (9) HTN (hypertension) Current Visit: No Status: Acute Code(s): I10 - ESSENTIAL (PRIMARY) HYPERTENSION SNOMED Code(s): 01261461 (10) History of seizure disorder Current Visit: No Status: Acute Code(s): Z86.69 - PERSONAL HISTORY OF DIS OF THE NERVOUS SYS AND SENSE ORGANS SNOMED Code(s): 801646419 (11) Hypoxemia Current Visit: No Status: Acute Code(s): R09.02 - HYPOXEMIA SNOMED Code(s): 045880591 (12) Ischemic heart disease Current Visit: No Status: Acute Code(s): I25.9 - CHRONIC ISCHEMIC HEART DISEASE, UNSPECIFIED SNOMED Code(s): 165039280 (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 Current Visit: No Status: Acute Code(s): M32.14 - GLOMERULAR DISEASE IN SYSTEMIC LUPUS ERYTHEMATOSUS SNOMED Code(s): 16285464 (14) Nicotine addiction Current Visit: No Status: Acute Code(s): F17.200 - NICOTINE DEPENDENCE, UNSPECIFIED, UNCOMPLICATED SNOMED Code(s): 64429557 (15) Type 2 diabetes mellitus without complications Current Visit: No Status: Acute Code(s): E11.9 - TYPE 2 DIABETES MELLITUS WITHOUT COMPLICATIONS SNOMED Code(s): 500844072 (16) S/P percutaneous endoscopic gastrostomy (PEG) tube placement Current Visit: Yes Status: Acute Code(s): Z93.1 - GASTROSTOMY STATUS S NOMED Code(s): 830921245 Plan: Tube feedings will advance as directed by dietary. We'll put in a consult for ENT for possible bedside evaluation due to his abnormal CT of the neck and his dysphagia. He'll continue on his current medications as ordered. We'll wait on Dr. Alfaro's recommendations for a substitute for his CellCept. Labs in a.m. He will be reevaluated By family medicine in 24 hours and expect discharge in a time.
--- NOTE | 2023-07-20 12:45 | P.NPCON ---
History of Present Illness - Reason for Consult chronic renal failure - History of Present Illness Patient is a 63-year-old male with history of lupus nephritis currently maintained on CellCept. Serum creatinine at 0.5 mg/dL. Details regarding lupus nephritis are not available currently. Patient is admitted to the hospital due to barium swallow showing evidence of severe aspiration and reflux. Patient has had a PEG tube placed by GI on 07/18/2023. There is concern for CellCept being crushed and given through the tube although patient states that she had been crushing it and taking it with liquid all this time. Patient has had decreased oral intake and significant weight loss of about 30-40 pounds over the last 2 months. No other complaints today. Review of Systems As per HPI Past Medical History Past Medical History: Asthma, Coronary Artery Disease (CAD), Chest Pain / Angina, Heart Failure, COPD, CVA/TIA, GERD/Reflux, Hyperlipidemia, Hypertension, Myocardial Infarction ([place]), Osteoarthritis (OA), Pneumonia, Renal Disease, Seizure Disorder, Sleep Apnea/CPAP/BIPAP Additional Past Medical History / Comment(s): last seizure - 2014, hiatal hernia, chronic back pain, 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, lupus, continuous oxygen use at 3L, no cpap used, kidney failure with he modilaysis in the past, 3 TX's, hypoglycemia Last Myocardial Infarction Date:: 2015 History of Any Multi-Drug Resistant Organisms: None Reported Past Surgical History: Cholecystectomy, Heart Catheterization, Heart Catheteriza tion With Stent, Tonsillectomy Additional Past Surgical History / Comment(s): STATES 7 cardiac stents, neck surgery, upper and lower scopes, spine surgery, pain procedures, Past Anesthesia/Blood Transfusion Reactions: No Reported Reaction Additional Past Anesthesia/Blood Transfusion Reaction / Comment(s): blood transfusion-no reaction, unknown family hx per spouse Date of Last Stent Placement:: 2021 Past Psychological History: Anxiety, Depression Additional Psychological History / Comment(s): Pt resides with his spouse who is very helpful. He had very recent hospitalization and was to establish with Independent home care. Pt uses a cane or rollator walker. He has home oxygen. Pt drives. Pt is a diabetic but does not have a glucometer. Smoking Status: Current every day smoker Past Alcohol Use History: None Reported Additional Past Alcohol Use History / Comment(s): Pt started smoking in 1971 and was a 6 ppd smoker. He is now a 1/2 ppd smoker. Past Drug Use History: Marijuana - Past Family History Father Family Medical History: Myocardial Infarction ([place]) Additional Family Medical History / Comment(s): Father had a [place] at the age of 56yrs. Mother Family Medical History: Asthma, Cancer, COPD Additional Family Medical History / Comment(s): Mother had lung cancer. Medications and Allergies Home Medications Medication Instructions Recorded Confirmed Type PARoxetine [Paxil] 20 mg PO DAILY 05/21/16 07/17/23 History Phenytoin Sodium Extended 200 mg PO BID 05/21/16 07/17/23 History [Dilantin] rOPINIRole HCL [Requip] 1 mg PO BID 08/30/16 07/17/23 History Montelukast [Singulair] 10 mg PO DAILY 02/04/18 07/17/23 History Nitroglycerin Sl Tabs [Nitrostat] 0.4 mg SUBLINGUAL Q5M PRN 02/04/18 07/17/23 History allopurinoL [Zyloprim] 100 mg PO DAILY 02/04/18 07/17/23 History mycophenolate mofetiL [Cellcept] 500 mg PO DAILY 08/05/19 07/17/23 History Famotidine 20 mg PO DAILY 05/12/20 07/17/23 History Pregabalin [Lyrica] 200 mg PO TID #9 cap 11/18/22 07/17/23 Rx modafiniL [Provigil] 200 mg PO DAILY #3 tab 11/18/22 07/17/23 Rx Amitriptyline HCl [Elavil] 25 mg PO HS 02/19/23 07/17/23 History Atorvastatin [Lipitor] 20 mg PO DAILY 02/19/23 07/17/23 History Divalproex Sodium 250 mg PO BID 02/19/23 07/17/23 History Fluticasone/Umeclidin/Vilanter 1 puff INHALATION RT-DAILY 02/19/23 07/17/23 History [Trelegy Ellipta 100-62.5-25] Furosemide [Lasix] 60 mg PO BID 02/19/23 07/17/23 History Metoprolol Tartrate [Lopressor] 25 mg PO BID 02/19/23 07/17/23 History Sucralfate [Carafate] 1 gm PO AC-BID 02/19/23 07/17/23 History oxyCODONE-APAP 10-325MG [Percocet 1 tab PO Q6H PRN 02/19/23 07/17/23 History 10-325 mg] Albuterol Inhaler [Ventolin Hfa 1 - 2 puff INHALATION RT-Q6H PRN 07/17/23 07/17/23 History Inhaler] Albuterol Nebulized [Ventolin 2.5 mg INHALATION RT-Q6H PRN 07/17/23 07/17/23 His tory Nebulized] Docusate [Colace] 100 mg PO BID PRN 07/17/23 07/17/23 History Ipratropium-Albuterol Nebulize 3 ml INHALATION RT-QID PRN 07/17/23 07/17/23 History [Duoneb 0.5 mg-3 mg/3 ml Soln] Metformin Er 750mg 1,500 mg PO W/SUPPER PRN 07/17/23 07/17/23 History Mv-Min/Folic/K1/Lycopen/Lutein 1 tab PO DAILY 07/17/23 07/17/23 History [Centrum Silver Men Tablet] predniSONE 10 mg PO DAILY 07/17/23 07/17/23 History Allergies Allergy/AdvReac Type Severity Reaction Status Date / Time Penicillins Allergy Severe Swelling Verified 07/17/23 17:32 ibuprofen [From Motrin] Allergy Rash/Hives Verified 07/17/23 17:32 Iodinated Contrast Media Allergy Swelling Verified 07/17/23 17:32 [Iodinated Contrast- Oral and IV Dye] iodine Allergy Itching, Verified 07/17/23 17:32 Hives phenobarbital AdvReac Drowsiness Verified 07/17/23 17:32 Physical Exam Vitals: Vital Signs Temp Pulse Pulse Resp BP Pulse Ox 07/20/23 09:50 72 07/20/23 09:34 72 07/20/23 07:30 98.3 F 65 19 103/62 94 L 07/20/23 00:50 97.9 F 56 L 15 99/58 96 07/19/23 20:58 72 07/19/23 20:50 72 07/19/23 19:13 99.5 F 79 18 105/62 93 L 07/19/23 17:09 72 10/21/23 17:00 72 07/19/23 15:00 98.3 F 66 18 116/66 96 07/19/23 14:27 68 07/19/23 14:12 68 07/19/23 14:00 82 18 Intake and Output 07/19/23 07/20/23 07/20/23 22:59 06:59 14:59 Other: Voiding Method Toilet Toilet Urinal Urinal patient is comfortable awake not in any acute distress Examination of the heart S1 and S2 Examination the lungs bilateral breath sounds are heard Abdomen is soft nontender PEG tube in place Examination lower extremities shows no significant edema Results - Lab Results Most recent lab results Calcium 9.2 mg/dL (8.7-10.3) 07/19/23 04:01 07/19/23 04:01 07/19/23 04:01 Assessment and Plan Assessment: 1. History of lupus nephritis currently maintained on CellCept. Should be okay to crush medication. We'll check with pharmacy as well. Serum creatinine at 0.5 mg/dL. No recent UA available. UA in 2021 showed trace protein 2. Severe aspiration status post PEG tube placement 3. Soft tissue thickening noted in the glottic and supraglottic airway on computed tomography scan. Recommend follow-up with the ENT Plan: We will check with pharmacy regarding crushing the CellCept. I believe this should be okay. Follow-up as outpatient in 1-2 weeks post discharge.
[2023-07-20 13:26] LABS: BUN/Creat Ratio 13.14 Ratio (12.00-20.00); Blood Urea Nitrogen 9.2 mg/dL (9.0-27.0); Calcium 9.4 mg/dL (8.7-10.3); Chloride 106 mmol/L (96-109); Glucose 126 mg/dL (70-110); Magnesium 2.1 mg/dL (1.5-2.4); Potassium 4.8 mmol/L (3.5-5.5); Sodium 147 mmol/L (135-145)
[2023-07-20] MEDS: oxyCODONE-APAP 10-325MG 1 EACH TAB PO PRN (17:14)
[2023-07-20 19:03] LABS: Glucose,Whole Blood 140 mg/dL (70-110)
[2023-07-20] MEDS ORDERED: LORazepam 2 MG/ML INJ ONE (19:10)
[2023-07-20] MEDS ORDERED: AMIODARONE 360 MG in DEXTROSE 5% IN WATER 200 ML IV ONE ×2 (19:45)
[2023-07-20 20:08] LABS: Glucose,Whole Blood 158 mg/dL (70-110)
--- NOTE | 2023-07-20 20:43 | P.CRDCN ---
History of Present Illness Consult date: 07/20/23 History of present illness: Cardiology was paged on urgent bases at patient was noticed to be in Tachycardic rhythm and seziure which was not getting controlled. A team could not determine what was the rhythm and was not responding to adenosine. Patient was no code with DNI and no compressions and shocking orders. On bedside evaluation patient was noticed to be in Vtac HR 200. Patient got 150mg amiodarone x 2 which broke the Vtach. He was intermittently going in Vtach for which we gave 4 gm Mgso4 and 100 mg lidocaine, After this patient stabilized. During the code, patient was loosing pulse intermittently but being no chest compressions order, no chest compressions were performed. Patient was somnolent but arousable after ROSC ECG after ROSC showed NSR with lateral ST depressions and frequent PVCs, monomorphic. Labs from yesterday showed Hb 15, normal windows support engineer 0.7, and WNL electrolytes Patient was admitted on 07/17/23. 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 REVIEW OF SYSTEMS Could not be obtained as patient is somnolent PHYSICAL EXAMINATION Vital signs reviewed. Lungs: Poor inspiratory effort, mild crackles audible. Heart: Regular rate and rhythm, S1-S2, no S3, no murmur or rub. Abdomen: Soft nontender, Extremities: 1+ peripheral edema Neuro: Patient is not awake, but arousable, incoherent, ASSESSMENT Ventricular tachycardia Cardiac arrest status post return of spontaneous circulation DNR/DNI Lupus Nephritis Aspiration COPD SMoker PLAN Status post 300 mg of amiodarone, 100 mg of lidocaine, 4 g of magnesium sulfate Continue IV amiodarone drip 1 mg/h for 6 hours, Lasix was reduced to 0.5 mg If patient goes and further ventricular fibrillation, start lidocaine drip at 0.5 mg/h Obtain echocardiogram Transfer to ICU Prognsis is very guarded 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, lupus, continuous oxygen use at 3L, no cpap used, kidney failure with hemodilaysis in the past, 3 MD's, hypoglycemia Last Myocardial Infarction Date:: 2015 History of Any Multi-Drug Resistant Organisms: None Reported Past Surgical History: Cholecystectomy, Heart Catheterization, Heart Catheterization With Stent, Tonsillectomy Additional Past Surgical History / Comment(s): STATES 7 cardiac stents, neck surgery, upper and lower scopes, spine surgery, pain procedures, Past Anesthesia/Blood Transfusion Reactions: No Reported Reaction Additional Past Anesthesia/Blood Transfusion Reaction / Comment(s): blood transfusion-no reaction, unknown family hx per spouse Date of Last Stent Placement:: 2021 Past Psychological History: Anxiety, Depression Additional Psychological History / Comment(s): Pt resides with his spouse who is very helpful. He had very recent hospitalization and was to establish with [facility] home care. Pt uses a cane or rollator walker. He has home oxygen. Pt drives. Pt is a diabetic but does not have a glucometer. Smoking Status: Current every day smoker Past Alcohol Use History: None Reported Additional Past Alcohol Use History / Comment(s): Pt started smoking in 1971 and was a 6 ppd smoker. He is now a 1/2 ppd smoker. Past Drug Use History: Marijuana - Past Family History Father Family Medical History: Myocardial Infarction ([place]) Additional Family Medical History / Comment(s): Father had a [place] at the age of 56yrs. Mother Family Medical History: Asthma, Cancer, COPD Additional Family Medical History / Comment(s): Mother had lung cancer. Medications and Allergies Home Medications Medication Instructions Recorded Confirmed Type RX: PARoxetine [Paxil] 20 mg PO DAILY 05/21/16 07/17/23 History RX: Phenytoin Sodium Extended 200 mg PO BID 05/21/16 07/17/23 History [Dilantin] RX: rOPINIRole HCL [Requip] 1 mg PO BID 08/30/16 07/17/23 History RX: Montelukast [Singulair] 10 mg PO DAILY 02/04/18 07/17/23 History RX: Nitroglycerin Sl Tabs 0.4 mg SUBLINGUAL Q5M PRN 02/04/18 07/17/23 History [Nitrostat] RX: allopurinoL [Zyloprim] 100 mg PO DAILY 02/04/18 07/17/23 History RX: mycophenolate mofetiL 500 mg PO DAILY 08/05/19 07/17/23 History [Cellcept] RX: Famotidine 20 mg PO DAILY 05/12/20 07/17/23 History RX: Pregabalin [Lyrica] 200 mg PO TID #9 cap 11/18/22 07/17/23 Rx RX: modafiniL [Provigil] 200 mg PO DAILY #3 tab 11/18/22 07/17/23 Rx RX: Amitriptyline HCl [Elavil] 25 mg PO HS 02/19/23 07/17/23 History RX: Atorvastatin [Lipitor] 20 mg PO DAILY 02/19/23 07/17/23 History RX: Divalproex Sodium 250 mg PO BID 02/19/23 07/17/23 History RX: Fluticasone/Umeclidin/Vilanter 1 puff INHALATION RT-DAILY 02/19/23 07/17/23 History [Trelegy Ellipta 100-62.5-25] RX: Furosemide [Lasix] 60 mg PO BID 02/19/23 07/17/23 History RX: Metoprolol Tartrate [Lopressor] 25 mg PO BID 02/19/23 07/17/23 History RX: Sucralfate [Carafate] 1 gm PO AC-BID 02/19/23 07/17/23 History RX: oxyCODONE-APAP 10-325MG 1 tab PO Q6H PRN 02/19/23 07/17/23 History [Percocet 10-325 mg] Albuterol Inhaler [Ventolin Hfa 1 - 2 puff INHALATION RT-Q6H PRN 07/17/23 07/17/23 History Inhaler] Albuterol Nebulized [Ventolin 2.5 mg INHALATION RT-Q6H PRN 07/17/23 07/17/23 History Nebulized] Docusate [Colace] 100 mg PO BID PRN 07/17/23 07/17/23 History Metformin Er 750mg 1,500 mg PO W/SUPPER PRN 07/17/23 07/17/23 History Mv-Min/Folic/K1/Lycopen/Lutein 1 tab PO DAILY 07/17/23 07/17/23 History [Centrum Silver Men Tablet] RX: Ipratropium-Albuterol Nebulize 3 ml INHALATION RT-QID PRN 07/17/23 07/17/23 History [Duoneb 0.5 mg-3 mg/3 ml Soln] RX: predniSONE 10 mg PO DAILY 07/17/23 07/17/23 History Allergies Allergy/AdvReac Type Severity Reaction Status Date / Time Penicillins Allergy Severe Swelling Verified 07/17/23 17:32 ibuprofen [From Motrin] Allergy Rash/Hives Verified 07/17/23 17:32 Iodinated Contrast Media Allergy Swelling Verified 07/17/23 17:32 [Iodinated Contrast- Oral and IV Dye] iodine Allergy Itching, Verified 07/17/23 17:32 Hives phenobarbital AdvReac Drowsiness Verified 07/17/23 17:32 Physical Exam Vitals: Vital Signs Temp Pulse Pulse Resp BP Pulse Ox 07/20/23 16:45 72 07/20/23 16:29 72 07/20/23 15:25 98.7 F 72 18 108/68 93 L 07/20/23 13:24 72 07/20/23 13:08 72 07/20/23 09:50 72 07/20/23 09:34 72 07/20/23 08:00 18 07/20/23 07:30 98.3 F 65 19 103/62 94 L 07/20/23 00:50 97.9 F 56 L 15 99/58 96 07/19/23 20:58 72 07/19/23 20:50 72 Intake and Output 07/20/23 07/20/23 07/20/23 06:59 14:59 22:59 Other: Voiding Method Toilet Toilet Urinal Urinal Results 07/19/23 04:01 07/20/23 05:15 Comprehensive Metabolic Panel 07/20/23 Range/Units 05:15 Sodium 147 H (135-145) mmol/L Potassium 4.8 (3.5-5.5) mmol/L Chloride 106 (96-109) mmol/L Carbon Dioxide 33.0 H (21.6-31.8) mmol/L BUN 9.2 (9.0-27.0) mg/dL Creatinine 0.7 (0.6-1.5) mg/dL Glucose 126 H (70-110) mg/dL Calcium 9.4 (8.7-10.3) mg/dL Current Medications Generic Name Dose Route Start Last Admin Trade Name Freq PRN Reason Stop Dose Admin Acetaminophen 650 mg 07/17/23 14:32 Acetaminophen Tab 325 Mg Tab PO Q6HR PRN Mild Pain or Fever > 100.5 Albuterol/Ipratropium 3 ml 07/19/23 08:22 07/20/23 16:28 Ipratropium-Albuterol 3 Ml Neb INHALATION 3 ml RT-QID PRN Administration Shortness Of Breath Allopurinol 100 mg 07/19/23 09:00 07/20/23 09:51 Allopurinol 100 Mg Tab PO 100 mg DAILY KAZ Administration Amitriptyline HCl 25 mg 07/19/23 21:00 07/19/23 20:38 Amitriptyline Hcl 25 Mg Tab PO 25 mg HS KAZ Administration Atorvastatin Calcium 20 mg 07/19/23 09:00 07/20/23 09:51 Atorvastatin 20 Mg Tab PO 20 mg DAILY KAZ Administration Budesonide/Formoterol Fumarate 2 puff 07/20/23 09:00 07/19/23 09:19 Symbicort 80-4.5 Mcg Inhaler INHALATION 2 puff RT-BID KAZ Administration Docusate Sodium 100 mg 07/19/23 08:22 Docusate 100 Mg Cap PO BID PRN Constipation Famotidine 20 mg 07/19/23 09:00 07/20/23 09:51 Famotidine 20 Mg Tab PO 20 mg DAILY KAZ Administration Furosemide 60 mg 07/19/23 09:00 07/20/23 17:13 Furosemide 20 Mg Tab PO 60 mg 0900,1700 KAZ Administration Sodium Chloride 1,000 mls @ 100 mls/hr 07/17/23 14:45 07/20/23 15:26 Saline 0.9% IV Not Given .Q10H KAZ Amiodarone HCl 360 mg/ 200 mls @ 33.333 mls/hr 07/20/23 19:45 Dextrose/Water IV 07/21/23 01:44 .Q6H ONE Protocol 1 MG/MIN Amiodarone HCl 450 mg/ 250 mls @ 16.667 mls/hr 07/21/23 02:00 Dextrose/Water IV 07/21/23 19:59 .Q15H KAZ Protocol 0.5 MG/MIN Ipratropium [place] 0.5 mg 07/19/23 09:00 07/20/23 16:28 Ipratropium 0.5 Mg/2.5 Ml Nebu INHALATION Not Given RT-QID KAZ Metoprolol Tartrate 25 mg 07/19/23 09:00 07/20/23 09:51 Metoprolol Tartrate 25 Mg Tab PO 25 mg BID KAZ Administration Modafinil 200 mg 07/19/23 09:00 07/20/23 10:15 Modafinil 200 Mg Tab PO 200 mg DAILY KAZ Administration Montelukast Sodium 10 mg 07/19/23 09:00 07/20/23 09:51 Montelukast 10 Mg Tab PO 10 mg DAILY KAZ Administration Mycophenolate Mofetil 500 mg 07/19/23 09:00 07/20/23 11:00 Mycophenolate Mofetil 500 Mg Tab PO Not Given DAILY KAZ Naloxone HCl 0.2 mg 07/17/23 14:32 Naloxone 0.4 Mg/Ml 1 Ml Vial IV Q2M PRN Opioid Reversal Nicotine 1 patch 07/18/23 17:15 07/20/23 10:11 Nicotine 21mg/24hr Patch TRANSDERM 1 patch DAILY KAZ Administration Nitroglycerin 0.4 mg 07/19/23 08:22 Nitroglycerin Sl Tabs 0.4 Mg Tab SUBLINGUAL Q5M PRN Chest Pain Ondansetron HCl 4 mg 07/17/23 14:32 Ondansetron 4 Mg/2 Ml Vial IVP Q8HR PRN Nausea And Vomiting Oxycodone/Acetaminophen 1 each 07/20/23 14:14 07/20/23 17:14 Oxycodone-Apap 10-325mg 1 Each Tab PO 1 each Q6HR PRN Administration Pain Paroxetine HCl 20 mg 07/19/23 09:00 07/20/23 09:50 Paroxetine 20 Mg Tab PO 20 mg DAILY KAZ Administration Phenytoin Sodium 200 mg 07/19/23 09:00 07/20/23 09:50 Phenytoin Sodium Extended 100 Mg Cap PO 200 mg BID KAZ Administration Pregabalin 200 mg 07/19/23 09:00 07/20/23 17:14 Pregabalin 100 Mg Cap PO 200 mg TID KAZ Administration Ropinirole HCl 1 mg 07/19/23 09:00 10/22/23 09:51 Ropinirole Hcl 1 Mg Tab PO 1 mg BID KAZ Administration Valproic Acid 250 mg 07/19/23 09:30 07/20/23 09:51 Valproic Acid Oral Soln 250 Mg/5 Ml Cup PEG/G-TUBE 250 mg BID KAZ Administration Intake and Output 07/20/23 07/20/23 07/20/23 06:59 14:59 22:59 Other: Voiding Method Toilet Toilet Urinal Urinal 07/19/23 04:01 07/20/23 05:15
[2023-07-20] MEDS ORDERED: LIDOCAINE-D5W PMX 2G/250ML 2,000 MG in DEXTROSE/WATER 1 250ML.BAG IV SCH (20:45)
[2023-07-20] MEDS ORDERED: SODIUM CHLORIDE 0.9% 1,000 ML IV ONE (20:56)
[2023-07-20 21:00] LABS: ALT 33 U/L (4-49); AST 36 U/L (17-59); African American GFR (CKD) >90 (>60 ml/min/1.73 sqM); Albumin 3.4 g/dL (3.5-5.0); Albumin/Globulin Ratio 1.4; Alkaline Phosphatase 162 U/L (38-126); Blood Urea Nitrogen 9 mg/dL (9-20); Calcium 8.9 mg/dL (8.4-10.2); Carbon Dioxide 28 mmol/L (22-30); Globulin 2.4 g/dL; Glucose 175 mg/dL (74-99); Non-African American GFR(CKD) >90 (>60 ml/min/1.73 sqM); Phosphorus 3.8 mg/dL (2.5-4.5); Total Bilirubin 0.9 mg/dL (0.2-1.3); Total Protein 5.8 g/dL (6.3-8.2)
[2023-07-20 21:11] LABS: Anion Gap 11 mmol/L; Chloride 101 mmol/L (98-107); Potassium 3.4 mmol/L (3.5-5.1); Sodium 140 mmol/L (137-145)
[2023-07-20] MEDS: SYMBICORT 80-4.5 MCG INHALER INHALATION SCH (21:48)
[2023-07-20] MEDS: AMITRIPTYLINE HCL 25 MG TAB PO SCH (22:27)
[2023-07-20] MEDS ORDERED: Potassium Replacement Protocol 1 EACH MISC MISCELLANE PRN (23:18)
--- NOTE | 2023-07-21 00:29 | CONS ---
CONSULTATION REASON FOR CONSULTATION: Recurrent aspiration, dysphagia. HISTORY OF PRESENT ILLNESS: This patient is a 63-year-old male, who was recently admitted to [facility] with complaints of having difficulty swallowing solid foods. In addition to this, he states that whenever he tried to swallow liquid food, he tended to aspirate and cough it back up. These symptoms have been going on for at least the past 5 or 6 months. In addition to this, he has had hoarseness for the past 5 to 6 months. The patient related that at one point, he smoked as much as 5 or 6 packs of cigarettes per day. He is now apparently down to 1/2 to 1 pack of cigarettes per day. I strongly urged him to quit. He relates an incident that occurred over 25 years ago in the hospital. Apparently, in [facility], he was undergoing some type of cervical fusion procedure. It sounds as if this was being done anteriorly instead of posteriorly. The patient states that they used the laser, which I am not familiar with being used in this procedure. He complains that they removed too much of the bone posteriorly from his spine. In the process of removing the laser from his neck, the patient states that he noted that the physician was distracted while talking to someone else in the operating room and as a consequence as the laser was coming out he does not think the laser had been turned off. He feels that the laser cut into his Andrew's apple, apparently transecting it. The patient states that the operating surgeon was able to secure the services of an Ear, Nose, and Throat specialist, who was in the operating arena, who came immediately and saw this patient. The patient states that this doctor repaired the cut to the patient's Andrew's apple (thyroid cartilage) by stapling it back together. I advised the patient that we do not use kevin for this particular procedure. He denies having had a tracheostomy during or following this event. He was discharged from the hospital and he apparently did well. He denies any hoarseness at that time. Shortly after the surgery noted that whenever he would try to swallow, he would have difficulty getting the food to pass into his esophagus. It required that he tuck his chin down to his chest in order for the food to pass into his esophagus. He informed his orthopedic surgeon of this problem. Apparently, it was felt to be not that important and therefore was not further investigated. He states that the surgeon simply told him that he will have to do that for the rest of his life whenever he is the eating, that is to say tuck his skin into his chest whenever he is swallowing. He has not had any problems for all these years. He has not had any hoarseness. He has not had any aspiration of any significance. However, in the last 5 to 6 months, the patient has had weight loss, severe aspiration and severe difficulty swallowing. The difficulty with swallowing reached an apex and the patient presented at [facility] Emergency Room for evaluation. A barium swallow study was performed and he failed this study. It was noted that he had severe aspiration and the procedure had to be terminated. He was therefore admitted to the hospital for further diagnostic studies. The patient states that he has been quite hoarse for the past 5 to 6 months. Prior to that time he was not hoarse. He has occasional problem of breathing, but he has a history of sleep apnea. He underwent an EGD by Dr. Ya and his esophagus was found to be free of any strictures or significant pathology. A CT scan of his neck noted that there was abnormal folds of tissue in the hypopharynx and in the glottic area. This was to such an extent that there appeared not to be a significant glottic airway. This is obviously not possible because the patient is able to breathe. However, it is possible that he has a partial obstruction in that area. It seems that this patient is demonstrating evidence of glottic incompetence, which is causing his aspiration. My concern is that I doubt if this is due to his previous surgery because it seems that this would have shown itself in the past 25 years. My concern because of his history of heavy smoking is that it might represent a malignancy. In addition, the patient stated that when his symptoms began only 5 to 6 months ago, he began coughing up blood (hemoptysis). He denies any referred otalgia, or any throat pain. The hoarseness has gotten progressively worse. Some of what the patient states does not seem to make any logical medical sense. I doubt very seriously if he was able to observe, while under a general anesthetic, what was occurring in the emergency room with respect to whether or not the operating surgeon was distracted and forgot to turn the laser off. ALLERGIES: Reveals that the patient has allergies to penicillin and phenobarbital. MEDICATIONS: He is on numerous medications including; 1. Metoprolol. 2. DuoNeb. 3. Lyrica. 4. Metformin. 5. Proventil. 6. Trelegy. 7. Percocet. 8. Lipitor. 9. Prednisone. 10.Lasix. 11.Elavil. 12.Ventolin. 13.Singulair. 14.CellCept. 15.Requip. 16.Nitrostat. 17.Dilantin. 18.Zyloprim. 19.Paxil. REVIEW OF SYSTEMS: CARDIOVASCULAR: Positive for hypertension, ASHD, and congestive heart failure. RESPIRATORY: Positive for severe COPD/emphysema. GASTROINTESTINAL: Positive for GERD. METABOLIC/ENDOCRINE: Positive for hypercholesterolemia and type 2 diabetes mellitus. UROLOGICAL: Positive for chronic renal disease. MUSCULOSKELETAL: Positive for osteoarthritis and gout. NEUROLOGICAL: Positive for history of seizure disorder. Remainder of review of systems unremarkable. PAST MEDICAL HISTORY: This patient has had previous history of COPD, hypertension, seizure disorder, hypercholesterolemia, ASHD, stroke/CVA, AL, GERD, chronic renal disease, and congestive heart failure. PHYSICAL EXAMINATION: GENERAL: The patient is a 63-year-old male, who is alert and cooperative. HEENT: The patient is normocephalic. Tympanic membranes are normal. Middle ear space is free of any fluid or infection. Pupils equal, round, reactive to light and accommodation. Extraocular movements within normal limits. Intranasal examination reveals severe septal deviation to the left with compensatory hypertrophy of inferior turbinates. Exam of the oropharynx, which is limited, is unremarkable. I am not able to exam the patient's larynx at the bedside. NECK: Palpation of neck is negative for any neck masses or lymphadenopathy. I cannot detect evidence of any old tracheostomy scar. NERVOUS SYSTEM: Cranial nerves 2 through 12, remainder of the head and neck exam is unremarkable. CHEST/CARDIOVASCULAR: Lung sounds are distant, but clear. The patient is in regular sinus rhythm. S1 and S2 are present without any murmurs. ABDOMEN: There is no evidence any masses, megaly, or tenderness. Abdomen is soft. The remainder of physical exam is unremarkable. IMPRESSION: Aspiration, secondary to laryngeal incompetence (etiology? malignancy?. PLAN: I spent approximately 45 minutes with this patient. I discussed my concerns were with regard to his symptoms. Namely, I am very concerned that this patient may possibly have a malignancy, which has occurred in the past 5 to 6 months, especially with a history of having hoarseness and now aspiration. I doubt very seriously if his symptoms are secondary to the surgery that was performed over 25 years ago. The patient has a history of very heavy smoking and still continues to smoke heavily. Unfortunately, and I related this to the patient, I am not in the patient's insurance network. I do not participate with any of the Medicaid programs and have not done so for the past 15 or more years. As a consequence, I am not able to take this patient to surgery. Unfortunately, my office will not be able to bill for the time that I spent with him, but I do not have a problem with that issue. I think this patient would be best served by being referred to a major medical center such as [facility] ENT Department or the [facility] ENT Department. At the very least, he is going to need to have a suspension microlaryngoscopy under general anesthesia to evaluate his larynx and upper airway. Again, my main concern is that he may possibly have a malignancy present. Although the patient feels that his symptoms were caused by his surgery 25 years ago, I am not convinced that that is the case. In addition, I do not feel that I could adequately evaluate this patient in my office if I chose to see him there. His CT scan was very helpful with determining his exact diagnosis and therefore that is another reason for referring him to a major medical center so that he can undergo the proper evaluation under general anesthesia with a suspension microlaryngoscopy. I want to take this opportunity to thank you for allowing me to assist in the care of your patient. If I could be of any further assistance or if you have any further questions, please feel free to call my office. DURGA / KARLI: [id number] / BARBARA
[2023-07-21] MEDS: POTASSIUM BICARBONATE/CIT AC 20 MEQ TABLET.EFF NG-TUBE SCH ×2 (00:56→02:36)
[2023-07-21] MEDS: HEPARIN SODIUM,PORCINE 5,000 UNIT/ML 1 ML VIAL SQ SCH ×4 (00:57→23:45)
--- NOTE | 2023-07-21 01:48 | P.CNPUL ---
History of Present Illness Consult date: 07/21/23 Requesting physician: Damir Teran Reason for consult: other (ICU management) Chief complaint: Difficulty swallowing History of present illness: I am seeing this patient in new consultation today 07/21/2023 after he was transferred to the intensive care unit last night due to an unstable tach yarrhythmia, possibly V. tach. Patient is a 63-year-old white male with past medical history significant for atrial fibrillation, coronary artery disease with prior PCI/stents 7, heart failure, prior CVA/TIA with residual right-sided weakness, hyperlipidemia, hypertension, COPD, chronic oxygen dependence, chronic ongoing tobacco dependence, obstructive sleep apnea noncompliant with CPAP, prior C-spine fusion, seizure disorder, SLE and lupus nephritis, among other things. Patient originally came to the emergency room back on July 17 complaining of difficulty swallowing. He's had trouble swallowing solid and liquid foods. This has been ongoing for the past 5 months, but has worsened over the last week. He denies any odynophagia or hematemesis. Denies weight loss. He did have an EGD on July 18, and a PEG tube was successfully placed. During the procedure, the patient did not have any significant esophageal strictures or obstructions. On admission, a CT of the neck showed soft tissue thickening and indistinctness involving the glottic and supraglottic airway. At the moment of the CT there was no palmira airway at the level of the glottis presumably due to redundant soft tissue at the moment of imaging. Otherwise unremarkable. Postoperatively, the patient was recovering on the general medical floor. Last night, he became tachycardic and hypotensive. An A-team was called. Patient was found to be in a wide complex tachyarrhythmia, possibly ventricular tachycardia. Rhythm was terminated with 2 doses of 150 mg amiodarone, 100 mg of lidocaine, 4 g of magnesium sulfate. Patient is a DO NOT RESUSCITATE. He does not want CPR, defibrillation, or mechanical ventilation. He is okay with medications. There are reports the patient may also have had 2 generalized tonic-clonic seizures. Patient's last reported seizure before this was 3 years ago. Patient denies m issing any of his antiepileptic medications despite having difficulty swallowing. Seizure-like activity was terminated with 1 mg of Ativan. Patient was then transferred to intensive care unit. Currently, the patient is sitting up in bed, on 3 L/m nasal cannula, in no acute distress. Blood pressure is normotensive. Heart rhythm is currently normal sinus rhythm at about 60 beats per minute, but he does frequently transition in and out of atrial fibrillation with rapid ventricular rate and aberrant conduction. Amiodarone is currently infusing at 1 mg/m. Lidocaine infusing at 1 mg/m. Normal saline is infusing at 50 ML's per hour. Patient is relatively asymptomatic during these events. Estiven najera denies any chest pain, heart palpitations, lightheadedness, or shortness of breath. There is a PEG tube infusing Jevity tube feeds at 39 ML's per hour. Chest x-ray on arrival showed basilar atelectasis or early infiltrate. Denies infectious symptoms such as fever, cough, shortness of breath, chest pain. Most recent CBC from July 19rs has a WBC count of 13.6, hemoglobin 15.2, hematocrit 48, platelet 168. Most recent BMP from last night shows a sodium 140, potassium 3.4, chloride 101, serum bicarb 28, BUN 9, creatinine 0.71, glucose 175. Lactic acid was mildly elevated at 2.6. Magnesium was 6, patient did receive 4 g of magnesium during the rapid response. Troponin 0.014. Patient will be monitored in the intensive care unit. Review of Systems REVIEW OF SYSTEMS: CONSTITUTIONAL: Denies any recent significant weight loss or weight gain. EYES: Denies change in vision. EARS, NOSE, MOUTH, THROAT: Denies headaches, denies sore throat. CARDIOVASCULAR: Denies chest pain, palpitations or syncopal episodes. RESPIRATORY: Denies shortness of breath, cough, congestion or hemoptysis. GASTROINTESTINAL: Denies change in appetite, abdominal pain, nausea and vomiting, or diarrhea. Admits dysphagia GENITOURINARY: Denies hematuria, denies infections. MUSKULOSKELETAL: Denies pain, denies swelling. Admits chronic right-sided weakness INTEGUMENTARY: Denies rash, denies eczema. NEUROLOGICAL: Denies recent memory loss, no recent seizure activity. PSYCHIATRIC: Denies anxiety, denies depression. HEMATOLOGIC/LYMPHATIC: Denies anemia, denies enlarged lymph node Past Medical History Past Medical History: Asthma, Coronary Artery Disease (CAD), Chest Pain / Angina, Heart Failure, COPD, CVA/TIA, GERD/Reflux, Hyperlipidemia, Hypertension, Myocardial Infarction (MO), Osteoarthritis (OA), Pneumonia, Renal Disease, Seizure Disorder, Sleep Apnea/CPAP/BIPAP Additional Past Medical History / Comment(s): last seizure - 2014, hiatal hernia, chronic back pain, 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, lupus, continuous oxygen use at 3L, no cpap used, kidney failure with hemodilaysis in the past, 3 MO's, hypoglycemia Last Myocardial Infarction Date:: 2015 History of Any Multi-Drug Resistant Organisms: None Reported Past Surgical History: Cholecystectomy, Heart Catheterization, Heart Catheterization With Stent, Tonsillectomy Additional Past Surgical History / Comment(s): STATES 7 cardiac stents, neck surgery, upper and lower scopes, spine surgery, pain procedures, Past Anesthesia/Blood Transfusion Reactions: No Reported Reaction Additional Past Anesthesia/Blood Transfusion Reaction / Comment(s): blood transfusion-no reaction, unknown family hx per spouse Date of Last Stent Placement:: 2021 Past Psychological History: Anxiety, Depression Additional Psychological History / Comment(s): Pt resides with his spouse who is very helpful. He had very recent hospitalization and was to establish with [facility] home care. Pt uses a cane or rollator walker. He has home oxygen. Pt drives. Pt is a diabetic but does not have a glucometer. Smoking Status: Current every day smoker Past Alcohol Use History: None Reported Additional Past Alcohol Use History / Comment(s): Pt started smoking in 1971 and was a 6 ppd smoker. He is now a 1/2 ppd smoker. Past Drug Use History: Marijuana - Past Family History Father Family Medical History: Myocardial Infarction (MO) Additional Family Medical History / Comment(s): Father had a MO at the age of 56yrs. Mother Family Medical History: Asthma, Cancer, COPD Additional Family Medical History / Comment(s): Mother had lung cancer. Medications and Allergies Home Medications Medication Instructions Recorded Confirmed Type PARoxetine [Paxil] 20 mg PO DAILY 05/21/16 07/17/23 History Phenytoin Sodium Extended 200 mg PO BID 05/21/16 07/17/23 History [Dilantin] rOPINIRole HCL [Requip] 1 mg PO BID 08/30/16 07/17/23 History Montelukast [Singulair] 10 mg PO DAILY 02/04/18 07/17/23 History Nitroglycerin Sl Tabs [Nitrostat] 0.4 mg SUBLINGUAL Q5M PRN 02/04/18 07/17/23 History allopurinoL [Zyloprim] 100 mg PO DAILY 02/04/18 07/17/23 History mycophenolate mofetiL [Cellcept] 500 mg PO DAILY 08/05/19 07/17/23 History Famotidine 20 mg PO DAILY 05/12/20 07/17/23 History Pregabalin [Lyrica] 200 mg PO TID #9 cap 11/18/22 07/17/23 Rx modafiniL [Provigil] 200 mg PO DAILY #3 tab 11/18/22 07/17/23 Rx Amitriptyline HCl [Elavil] 25 mg PO HS 02/19/23 07/17/23 History Atorvastatin [Lipitor] 20 mg PO DAILY 02/19/23 07/17/23 History Divalproex Sodium 250 mg PO BID 02/19/23 07/17/23 History Fluticasone/Umeclidin/Vilanter 1 puff INHALATION RT-DAILY 02/19/23 07/17/23 H istory [Trelegy Ellipta 100-62.5-25] Furosemide [Lasix] 60 mg PO BID 02/19/23 07/17/23 History Metoprolol Tartrate [Lopressor] 25 mg PO BID 02/19/23 07/17/23 History Sucralfate [Carafate] 1 gm PO AC-BID 02/19/23 07/17/23 History oxyCODONE-APAP 10-325MG [Percocet 1 tab PO Q6H PRN 02/19/23 07/17/23 History 10-325 mg] Albuterol Inhaler [Ventolin Hfa 1 - 2 puff INHALATION RT-Q6H PRN 07/17/23 07/17/23 History Inhaler] Albuterol Nebulized [Ventolin 2.5 mg INHALATION RT-Q6H PRN 07/17/23 07/17/23 History Nebulized] Docusate [Colace] 100 mg PO BID PRN 07/17/23 07/17/23 History Ipratropium-Albuterol Nebulize 3 ml INHALATION RT-QID PRN 07/17/23 07/17/23 History [Duoneb 0.5 mg-3 mg/3 ml Soln] Metformin Er 750mg 1,500 mg PO W/SUPPER PRN 07/17/23 07/17/23 History Mv-Min/Folic/K1/Lycopen/Lutein 1 tab PO DAILY 07/17/23 07/17/23 History [Centrum Silver Men Tablet] predniSONE 10 mg PO DAILY 07/17/23 07/17/23 History Allergies Allergy/AdvReac Type Severity Reaction Status Date / Time Penicillins Allergy Severe Swelling Verified 07/17/23 17:32 ibuprofen [From Motrin] Allergy Rash/Hives Verified 07/17/23 17:32 Iodinated Contrast Media Allergy Swelling Verified 07/17/23 17:32 [Iodinated Contrast- Oral and IV Dye] iodine Allergy Itching, Verified 07/17/23 17:32 Hives phenobarbital AdvReac Drowsiness Verified 07/17/23 17:32 Physical Exam Vitals: Vital Signs Temp Pulse Pulse Resp BP BP Pulse Ox 07/20/23 23:00 61 30 H 124/99 95 07/20/23 22:30 128 H 22 102/88 94 L 07/20/23 22:00 176 H 18 109/64 95 07/20/23 21:30 110 H 26 H 94/53 07/20/23 21:00 29 H 84/47 94 L 07/20/23 20:30 85 21 102/53 94 L 07/20/23 16:45 72 07/20/23 16:29 72 07/20/23 15:25 98.7 F 72 18 108/68 93 L 07/20/23 13:24 72 07/20/23 13:08 72 07/20/23 09:50 72 07/20/23 09:34 72 07/20/23 08:00 18 07/20/23 07:30 98.3 F 65 19 103/62 94 L 07/20/23 00:50 97.9 F 56 L 15 99/58 96 Intake and Output 07/20/23 07/20/23 07/21/23 14:59 22:59 06:59 Intake Total 39 Output Total 0 0 Balance 0 39 Intake: Tube Feeding 39 Output: Urine 0 0 Other: Voiding Method Toilet Urinal GENERAL EXAM: Alert, 63-year-old white male, comfortable in no apparent distress. HEAD: Normocephalic and atraumatic EYES: Normal reaction of pupils, equal size. NOSE: Clear with pink turbinates. THROAT: No erythema or exudates. Voice is hoarse NECK: No masses, no JVD. CHEST: No chest wall deformity. LUNGS: Equal air entry with no crackles, wheeze, rhonchi or dullness. On 3 L/m nasal cannula. No conversational dyspnea or accessory muscle use.. CVS: S1 and S2 normal with soft systolic grade 1 murmur, regular rhythm. No other extra heart sounds ABDOMEN: No hepatosplenomegaly, active bowel sounds, no guarding or rigidity. PEG tube in place SPINE: No scoliosis or deformity SKIN: No rashes CENTRAL NERVOUS SYSTEM: Right sided hemiparesis, right arm and right leg grade 4/5 strength. Left upper and left lower extremities grade 5/5 strength. No other focal deficits EXTREMITIES: There is no peripheral edema, clubbing, or cyanosis. Peripheral pulses are intact. Results - Laboratory Findings CBC and BMP: 07/21/23 04:35 07/21/23 04:35 PT/INR, D-dimer PT 10.4 sec (10.0-12.5) 07/17/23 14:43 INR 0.9 (<1.2) 07/17/23 14:43 Abnormal lab findings: Abnormal Labs 07/17/23 07/17/23 07/19/23 14:43 14:43 04:01 WBC 13.6 H 13.65 H MCV 100.2 H MCHC 31.7 L Neutrophils # 10.2 H 10.22 H Sodium Potassium Carbon Dioxide Anion Gap Creatinine 0.56 L Glucose 100 H POC Glucose (mg/dL) Plasma Lactic Acid Otto Magnesium Alkaline Phosphatase 135 H Total Protein Albumin 07/19/23 07/20/23 07/20/23 04:01 05:15 18:51 WBC MCV MCHC Neutrophils # Sodium 147 H Potassium Carbon Dioxide 33.0 H Anion Gap 12.70 H Creatinine Glucose 111 H 126 H POC Glucose (mg/dL) 140 H Plasma Lactic Acid Otto Magnesium Alkaline Phosphatase 155 H Total Protein 6.1 L Albumin 07/20/23 07/20/23 07/20/23 20:00 20:00 20:07 WBC MCV MCHC Neutrophils # Sodium Potassium 3.4 L Carbon Dioxide Anion Gap Creatinine Glucose 175 H POC Glucose (mg/dL) 158 H Plasma Lactic Acid Otto 2.6 H* Magnesium 6.0 H* Alkaline Phosphatase 162 H Total Protein 5.8 L Albumin 3.4 L - Diagnostic Findings Chest x-ray: image reviewed Assessment and Plan Assessment: Unstable wide complex tachyarrhythmia, possibly ventricular tachycardia, terminated with 2 doses of 150 mg IV amiodarone, 100 mg of IV lidocaine, 4 g of IV magnesium sulfate. Patient was transferred to the intensive care unit for closer monitoring. Currently, rhythm appears to be normal sinus on the bedside monitor. Suspected breakthrough seizure, terminated with 1 mg of Ativan IV push. Home antiepileptic medications have been resumed. Patient does have history of seizure disorder. Hypokalemia, being replaced per protocol Hypermagnesemia Dysphagia, status post operative day #3 following PEG tube placement. During the EGD no obvious esophageal strictures or obstructions were noted. History of coronary artery disease, with prior MO and stents Benign essential hypertension Hyperlipidemia History of CVA/TIA Chronic obstructive pulmonary disease, stable. Normally maintained on Trelegy Ellipta inhaler and DuoNeb inhalations on an outpatient basis. Chronic hypoxemic respiratory failure, currently on 3 L/m nasal cannula, which is what he wears at home Obstructive sleep apnea, noncompliant with CPAP Systemic lupus erythematous, lupus nephritis, maintained on CellCept Chronic ongoing tobacco dependence, reportedly smokes up to 1-1/2 packs per day Plan: Patient's medications, labs, chest x-ray reviewed Patient was transferred to the intensive care unit for closer monitoring. Currently amiodarone is infusing at 1 mg/m and lidocaine is infusing at 1 mg/m. Patient appears hemodynamically stable at this time. No need for vasopressors. Current rhythm is normal sinus with frequent transient/self limiting episodes of what appears to be atrial fibrillation with RVR and abberant conduction. Patient admits history of atrial fibrillation. Cardiology is following for this. Patient is a DO NOT RESUSCITATE. He does not want CPR, defibrillation, or mechanical ventilation. He is okay with IV medications. Patient's potassium is being replaced per protocol. Recheck electrolytes In regard to patient's dysphagia, he is status post PEG tube placement on July 18. ENT also evaluated the patient, there were concerns for possible malignancy, requiring further evaluation on discharge. No further seizures have been witnessed since transferred to the intensive care unit. Patient's seizure-like activity was reportedly terminated with 1 mg of Ativan IV push. Patient's home antiepileptic medications have been resumed. Consult neurology. Smoking cessation counseling performed, and nicotine replacement offered. Patient will be monitored in the intensive care unit, and further recommendations are forthcoming I have personally seen and examined the patient, performed the documentation and the assessment and plan as written. Number of minutes spent on the visit:20 On 07/21/2023, I'm seeing the patient in consultation think combination with the nurse practitioner. The patient is known to me. The patient was last seen in my office back in February 2023. He is known to have severe COPD with chronic hypoxic respiratory failure maintained on Trelegy Ellipta on outpatient basis. He is also known to have moderately severe MILTON with an AHI of 16 and overlap syndrome with sleep apnea/COPD. The patient has limited on CPAP therapy at pressure of 10 cm of water along with oxygen at 2 L/m nasal cannula. He has chronic hypoxic respiratory failure maintained on oxygen at 3 L. He is known to have coronary artery disease, congestion heart failure with a mildly impaired ejection fraction of 40-45%, previous history of CVA with side but right-sided weakness, remote history of seizures, history of lupus and history of lupus nephritis maintained on CellCept on outpatient basis. The patient was transferred to the ICU yesterday because of suspected seizures. There was also a cardiac arrhythmia that brought him in and the patient was having a wide- complex tachycardia, probably A. fib with aberrancy. He was given appropriate treatment with amiodarone and amiodarone was stopped running at 0.5 mg/m. Is also on lidocaine for milligram per minutes. His current cardiac rhythm is sinus. Free of any chest pain. No seizure activity has been witnessed since his arrival to the intensive care unit. Is also a concern of his swallow as the patient has been having chronic dysphagia. The patient had a CAT scan of the neck that showed no airway within the subglottic area. He has no stridor. However based on his ongoing dysphasia, he was given a PEG tube few days back and the patient is currently receiving enteral feeding for nutritional support and currently is receiving Jevity at the rate of 39 mL an hour. His renal function is stable with a creatinine of 0.7. Blood gas shows a pH of 7.44 with episodes of 48 and pO2 of 93. The white cell cause of 9.4 with a hemoglobin of 12.8. CAT scan of the brain showed no acute abnormalities. He did have an ENT evaluation during this current hospital admission. There is a concern of upper airway involvement due to the noted obstruction. He has chronic hoarseness and he has undergone previous cervical spine surgery with fusion. He would need a inspection of an upper airway at the later stage evaluate for airway patency. For now, the patient will be kept in the ICU. He was seen by cardiology and neurology. Will monitor his mental status. Will monitor his cardiac rhythm. Overall respiratory status is stable and is currently on oxygen at 3 L which is baseline for him. Restart prednisone at a dose of 10 mg by mouth daily. Continue CellCept. Continue valproic acid 250 mg per PEG tube twice a day. Evalaution was done in >30 min Time with Patient: Greater than 30
[2023-07-21] MEDS ORDERED: AMIODARONE 450 MG in DEXTROSE 5% IN WATER 250 ML IV SCH ×2 (02:00)
[2023-07-21 02:07] LABS: Glucose,Whole Blood 153 mg/dL (70-110)
[2023-07-21 02:30] LABS: ABG Base Excess 8.5 mmol/L; ABG HCO3 33 mmol/L (21-25); ABG Oxygen Saturation 97.3 % (94-97); ABG PCO2 48 mmHg (35-45); ABG PH 7.44 (7.35-7.45); ABG PO2 93 mmHg (83-108); ABG TCO2 34 mmol/L (19-24); Allen Test Performed? Yes
--- NOTE | 2023-07-21 03:44 | CT ---
EXAM: CT Head Without Intravenous Contrast CLINICAL HISTORY: ITS.REASON CT Reason: Difficult to arouse TECHNIQUE: Axial computed tomography images of the head/brain without intravenous contrast. CTDI is 49.2 mGy and DLP is 1159.4 mGy-cm. This CT exam was performed using one or more of the following dose reduction techniques: automated exposure control, adjustment of the mA and/or kV according to patient size, and/or use of iterative reconstruction technique. COMPARISON: No relevant prior studies available. FINDINGS: Brain: No hemorrhage or mass effect. Ventricles: No hydrocephalus. Bones/joints: Unremarkable. Soft tissues: Unremarkable. Sinuses: No air fluid level. Mastoid air cells: Clear. IMPRESSION: No acute hemorrhage, hydrocephalus, or mass effect.
[2023-07-21 05:56] LABS: Basophils % (A) 0 %; Eosinophils # (A) 0.1 k/uL (0-0.7); Eosinophils % (A) 1 %; HCT 40.1 % (39.0-53.0); Lymphocytes # (A) 1.9 k/uL (1.0-4.8); Lymphocytes % (A) 20 %; MCH 31.9 pg (25.0-35.0); MCV 99.7 fL (80.0-100.0); Mean Platelet Volume 8.8; Monocytes # (A) 0.7 k/uL (0-1.0); Monocytes % (A) 7 %; Neutrophils # (A) 6.6 k/uL (1.3-7.7); Neutrophils % (A) 70 %; Platelet Count 137 k/uL (150-450); RBC 4.02 m/uL (4.30-5.90); RDW 13.2 % (11.5-15.5); WBC 9.4 k/uL (3.8-10.6)
[2023-07-21 06:02] LABS: HGB 12.8 gm/dL (13.0-17.5)
[2023-07-21 06:14] LABS: African American GFR (CKD) >90 (>60 ml/min/1.73 sqM); Anion Gap 5 mmol/L; Blood Urea Nitrogen 12 mg/dL (9-20); Calcium 8.3 mg/dL (8.4-10.2); Carbon Dioxide 33 mmol/L (22-30); Chloride 102 mmol/L (98-107); Glucose 94 mg/dL (74-99); Non-African American GFR(CKD) >90 (>60 ml/min/1.73 sqM); Potassium 4.1 mmol/L (3.5-5.1); Sodium 140 mmol/L (137-145)
[2023-07-21] MEDS: SYMBICORT 80-4.5 MCG INHALER INHALATION SCH ×2 (09:13→20:06)
[2023-07-21] MEDS: IPRATROPIUM-ALBUTEROL 3 ML NEB INHALATION PRN ×3 (09:13→15:46)
[2023-07-21] MEDS: IPRATROPIUM 0.5 MG/2.5 ML NEBU INHALATION SCH ×4 (09:17→20:06)
[2023-07-21] MEDS: NICOTINE 21MG/24HR PATCH TRANSDERM SCH (10:16)
[2023-07-21] MEDS: MONTELUKAST 10 MG TAB PO SCH (10:17)
[2023-07-21] MEDS: VALPROIC ACID ORAL SOLN 250 MG/5 ML CUP PEG/G-TUBE SCH ×2 (10:17→20:28)
[2023-07-21] MEDS: FUROSEMIDE 20 MG TAB PO SCH ×2 (10:18→17:39)
[2023-07-21] MEDS: PARoxetine 20 MG TAB PO SCH (10:18)
[2023-07-21] MEDS: METOPROLOL TARTRATE 25 MG TAB PO SCH ×2 (10:18→20:28)
[2023-07-21] MEDS: oxyCODONE-APAP 10-325MG 1 EACH TAB PO PRN ×2 (10:19→17:38)
[2023-07-21] MEDS: allopurinoL 100 MG TAB PO SCH (10:20)
[2023-07-21] MEDS: ATORVASTATIN 20 MG TAB PO SCH (10:21)
[2023-07-21] MEDS: PREGABALIN 100 MG CAP PO SCH ×3 (10:21→21:03)
[2023-07-21] MEDS: PHENYTOIN SODIUM EXTENDED 100 MG CAP PO SCH ×2 (10:22→20:28)
[2023-07-21] MEDS: FAMOTIDINE 20 MG TAB PO SCH (10:23)
--- NOTE | 2023-07-21 11:17 | P.PN ---
Subjective Patient is seen for follow-up for chronic kidney disease secondary to lupus nephritis. Yesterday patient developed V. tach/cardiac arrest. He did not need to be intubated. Patient has been transferred to ICU. He is currently maintained on amiodarone drip and lidocaine drip. Patient feels well. He is tolerating oral intake. CellCept is being crushed and given down the PEG tube. No significant urinary symptoms. Objective - Vital Signs Vital signs: Vital Signs Temp 98.2 F 07/21/23 04:00 Pulse 70 07/21/23 09:30 Resp 18 07/21/23 09:30 BP 99/65 07/21/23 07:00 Pulse Ox 89 L 07/21/23 07:00 FiO2 Intake & Output 07/20/23 07/21/23 07/21/23 18:59 06:59 18:59 Intake Total 722 89 Output Total 0 0 Balance 722 89 Weight 92 kg Intake: IV 350 50 Sodium Chloride 0.9% 1, 350 50 000 ml @ 50 mls/hr IV . Q20H [facility] Rx#:[id number] Tube Feeding 312 39 Other 60 Output: Urine 0 0 Other: Voiding Method Toilet Urinal - Exam patient is comfortable awake not in any acute distress Examination of the heart S1 and S2 Examination the lungs bilateral breath sounds are heard Abdomen is soft nontender PEG tube in place Examination lower extremities shows no significant edema - Labs CBC & Chem 7: 07/21/23 04:35 07/21/23 04:35 Labs: Abnormal Lab Results - Last 24 Hours (Table) 07/20/23 07/20/23 07/20/23 Range/Units 05:15 18:51 20:00 RBC (4.30-5.90) m/uL Hgb (13.0-17.5) gm/dL Plt Count (150-450) k/uL ABG pCO2 (35-45) mmHg ABG HCO3 (21-25) mmol/L ABG Total CO2 (19-24) mmol/L ABG O2 Saturation (94-97) % Sodium 147 H (135-145) mmol/L Potassium 3.4 L (3.5-5.1) mmol/L Carbon Dioxide 33.0 H (21.6-31.8) mmol/L Glucose 126 H 175 H (70-110) mg/dL POC Glucose (mg/dL) 140 H (70-110) mg/dL Plasma Lactic Acid Otto (0.7-2.0) mmol/L Calcium (8.4-10.2) mg/dL Magnesium 6.0 H* (1.6-2.3) mg/dL Alkaline Phosphatase 162 H (38-126) U/L Troponin I (0.000-0.034) ng/mL Total Protein 5.8 L (6.3-8.2) g/dL Albumin 3.4 L (3.5-5.0) g/dL 07/20/23 07/20/23 07/20/23 Range/Units 20:00 20:07 23:32 RBC (4.30-5.90) m/uL Hgb (13.0-17.5) gm/dL Plt Count (150-450) k/uL ABG pCO2 (35-45) mmHg ABG HCO3 (21-25) mmol/L ABG Total CO2 (19-24) mmol/L ABG O2 Saturation (94-97) % Sodium (135-145) mmol/L Potassium (3.5-5.1) mmol/L Carbon Dioxide (21.6-31.8) mmol/L Glucose (70-110) mg/dL POC Glucose (mg/dL) 158 H (70-110) mg/dL Plasma Lactic Acid Otto 2.6 H* (0.7-2.0) mmol/L Calcium (8.4-10.2) mg/dL Magnesium (1.6-2.3) mg/dL Alkaline Phosphatase (38-126) U/L Troponin I 0.715 H* (0.000-0.034) ng/mL Total Protein (6.3-8.2) g/dL Albumin (3.5-5.0) g/dL 07/21/23 07/21/23 07/21/23 Range/Units 02:05 02:18 04:35 RBC (4.30-5.90) m/uL Hgb (13.0-17.5) gm/dL Plt Count (150-450) k/uL ABG pCO2 48 H (35-45) mmHg ABG HCO3 33 H (21-25) mmol/L ABG Total CO2 34 H (19-24) mmol/L ABG O2 Saturation 97.3 H (94-97) % Sodium (135-145) mmol/L Potassium (3.5-5.1) mmol/L Carbon Dioxide 33 H (21.6-31.8) mmol/L Glucose (70-110) mg/dL POC Glucose (mg/dL) 153 H (70-110) mg/dL Plasma Lactic Acid Otto (0.7-2.0) mmol/L Calcium 8.3 L (8.4-10.2) mg/dL Magnesium 3.0 H (1.6-2.3) mg/dL Alkaline Phosphatase (38-126) U/L Troponin I (0.000-0.034) ng/mL Total Protein (6.3-8.2) g/dL Albumin (3.5-5.0) g/dL 07/21/23 07/21/23 Range/Units 04:35 04:35 RBC 4.02 L (4.30-5.90) m/uL Hgb 12.8 L D (13.0-17.5) gm/dL Plt Count 137 L (150-450) k/uL ABG pCO2 (35-45) mmHg ABG HCO3 (21-25) mmol/L ABG Total CO2 (19-24) mmol/L ABG O2 Saturation (94-97) % Sodium (135-145) mmol/L Potassium (3.5-5.1) mmol/L Carbon Dioxide (21.6-31.8) mmol/L Glucose (70-110) mg/dL POC Glucose (mg/dL) (70-110) mg/dL Plasma Lactic Acid Otto (0.7-2.0) mmol/L Calcium (8.4-10.2) mg/dL Magnesium (1.6-2.3) mg/dL Alkaline Phosphatase (38-126) U/L Troponin I 0.989 H* (0.000-0.034) ng/mL Total Protein (6.3-8.2) g/dL Albumin (3.5-5.0) g/dL Assessment and Plan Assessment: 1. History of lupus nephritis currently maintained on CellCept. Serum creatinine at 0.5 mg/dL. No recent UA available. UA in 2021 showed trace protein 2. Severe aspiration status post PEG tube placement 3. Soft tissue thickening noted in the glottic and supraglottic airway on computed tomography scan. Recommend follow-up with the ENT 4. Status post cardiac arrest/V. tach currently maintained on amiodarone drip and lidocaine drip. Being followed by cardiology. Plan: Continue CellCept Check UA Follow-up as outpatient post discharge.
[2023-07-21] MEDS: LACOSAMIDE 50 MG TABLET PO SCH ×2 (12:20→21:03)
[2023-07-21] MEDS: predniSONE 10 MG TAB PO SCH (12:20)
--- NOTE | 2023-07-21 12:20 | P.CNNES ---
History of Present Illness Consult date: 07/21/23 Requesting physician: Ilan Enrique Reason for Consult: possible break-through seizure History of Present Illness: This is a 63-year-old gentleman with history of seizure on Dilantin, history of stroke, atrial fibrillation, coronary artery disease and other medical issues who presented emergency department on 07/17/2023 for difficulty swallowing. Neurology is consulted for seizure. According to the nurse she was notified that he had the seizure-like activity overnight. It is reported that the RN overnight about 7 isPM noticed that the patient was unconscious and the his blood pressure was 96/50 3 mL the patient had 2 seizures just close to 7 PM yesterday and the patient was shown V. tach rate greater than 200 and it appears as reported as 3 seizures in the patient received IV Ativan. Patient states he is on Dilaudid 200 mg 1 tablet twice a day and he has not had a seizure since a year and half ago. He cannot tell me what neurologists he follows up with that. During his hospital stay because of his dysphagia he had a PEG tube placed. No further seizures according to the nurse. Of note the patient was last seen by Dr. Alvares on 01/22/2021 which the patient had altered mental status and it's reported by Dr. Alvares the patient has not had any further seizures since 2016 and 18. At that time the patient was on 200 mg twice a day. Seems the patient tried Keppra in the past but had behavioral c hanges made a mild is reported. He had an EEG during that the hospital visit and it shows abnormal with mild to moderate encephalopathy. There is no epileptiform activity no seizure noted. Please refer to his note for further details. Some other workup during his hospital visit consisted of: Magnesium was as high as 6 yesterday and today is 3.0. Calcium is 8.9 Plasma-Lyte acids as vein was 2.6. Before meals ALTs within normal limits Sodium is 140. Glucose yesterday was around 158. Today is 153. CT of the head is reported as no acute hemorrhage, hydrocephalus or mass effect. Personally reviewed the CT of the head and there is no acute subacute ischemia. There is no intraparenchymal bleed. There is no mass effect was able to appreciate. Review of Systems The positive and negative as per HPI. Past Medical History Past Medical History: Asthma, Coronary Artery Disease (CAD), Chest Pain / Angina, Heart Failure, COPD, CVA/TIA, GERD/Reflux, Hyperlipidemia, Hypertension, Myocardial Infarction (CT), Osteoarthritis (OA), Pneumonia, Renal Disease, Seizure Disorder, Sleep Apnea/CPAP/BIPAP Additional Past Medical History / Comment(s): last seizure - 2014, hiatal hernia, chronic back pain, 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, lupus, continuous oxygen use at 3L, no cpap used, kidney failure with hemodilaysis in the past, 3 CT's, hypoglycemia Last Myocardial Infarction Date:: 2015 History of Any Multi-Drug Resistant Organisms: None Reported Past Surgical History: Cholecystectomy, Heart Catheterization, Heart Catheterization With Stent, Tonsillectomy Additional Past Surgical History / Comment(s): STATES 7 cardiac stents, neck surgery, upper and lower scopes, spine surgery, pain procedures, Past Anesthesia/Blood Transfusion Reactions: No Reported Reaction Additional Past Anesthesia/Blood Transfusion Reaction / Comment(s): blood transfusion-no reaction, unknown family hx per spouse Date of Last Stent Placement:: 2021 Past Psychological History: Anxiety, Depression Additional Psychological History / Comment(s): Pt resides with his spouse who is very helpful. He had very recent hospitalization and was to establish with Independent home care. Pt uses a cane or rollator walker. He has home oxygen. Pt drives. Pt is a diabetic but does not have a glucometer. Smoking Status: Current every day smoker Past Alcohol Use History: None Reported Additional Past Alcohol Use History / Comment(s): Pt started smoking in 1971 and was a 6 ppd smoker. He is now a 1/2 ppd smoker. Past Drug Use History: Marijuana - Past Family History Father Family Medical History: Myocardial Infarction (CT) Additional Family Medical History / Comment(s): Father had a CT at the age of 56yrs. Mother Family Medical History: Asthma, Cancer, COPD Additional Family Medical History / Comment(s): Mother had lung cancer. Medications and Allergies Home Medications Medication Instructions Recorded Confirmed Type PARoxetine [Paxil] 20 mg PO DAILY 05/21/16 07/17/23 History Phenytoin Sodium Extended 200 mg PO BID 05/21/16 07/17/23 History [Dilantin] rOPINIRole HCL [Requip] 1 mg PO BID 08/30/16 07/17/23 History Montelukast [Singulair] 10 mg PO DAILY 02/04/18 07/17/23 History Nitroglycerin Sl Tabs [Nitrostat] 0.4 mg SUBLINGUAL Q5M PRN 02/04/18 07/17/23 History allopurinoL [Zyloprim] 100 mg PO DAILY 02/04/18 07/17/23 History mycophenolate mofetiL [Cellcept] 500 mg PO DAILY 08/05/19 07/17/23 History Famotidine 20 mg PO DAILY 05/12/20 07/17/23 History Pregabalin [Lyrica] 200 mg PO TID #9 cap 11/18/22 07/17/23 Rx modafiniL [Provigil] 200 mg PO DAILY #3 tab 11/18/22 07/17/23 Rx Amitriptyline HCl [Elavil] 25 mg PO HS 02/19/23 07/17/23 History Atorvastatin [Lipitor] 20 mg PO DAILY 02/19/23 07/17/23 History Divalproex Sodium 250 mg PO BID 02/19/23 07/17/23 History Fluticasone/Umeclidin/Vilanter 1 puff INHALATION RT-DAILY 02/19/23 07/17/23 History [Trelegy Ellipta 100-62.5-25] Furosemide [Lasix] 60 mg PO BID 02/19/23 07/17/23 History Metoprolol Tartrate [Lopressor] 25 mg PO BID 02/19/23 07/17/23 History Sucralfate [Carafate] 1 gm PO AC-BID 02/19/23 07/17/23 History oxyCODONE-APAP 10-325MG [Percocet 1 tab PO Q6H PRN 02/19/23 07/17/23 History 10-325 mg] Albuterol Inhaler [Ventolin Hfa 1 - 2 puff INHALATION RT-Q6H PRN 07/17/23 07/17/23 History Inhaler] Albuterol Nebulized [Ventolin 2.5 mg INHALATION RT-Q6H PRN 07/17/23 07/17/23 History Nebulized] Docusate [Colace] 100 mg PO BID PRN 07/17/23 07/17/23 History Ipratropium-Albuterol Nebulize 3 ml INHALATION RT-QID PRN 07/17/23 07/17/23 History [Duoneb 0.5 mg-3 mg/3 ml Soln] Metformin Er 750mg 1,500 mg PO W/SUPPER PRN 07/17/23 07/17/23 History Mv-Min/Folic/K1/Lycopen/Lutein 1 tab PO DAILY 07/17/23 07/17/23 History [Centrum Silver Men Tablet] predniSONE 10 mg PO DAILY 07/17/23 07/17/23 History Allergies Allergy/AdvReac Type Severity Reaction Status Date / Time Penicillins Allergy Severe Swelling Verified 07/17/23 17:32 ibuprofen [From Motrin] Allergy Rash/Hives Verified 07/17/23 17:32 Iodinated Contrast Media Allergy Swelling Verified 07/17/23 17:32 [Iodinated Contrast- Oral and IV Dye] iodine Allergy Itching, Verified 07/17/23 17:32 Hives phenobarbital AdvReac Drowsiness Verified 07/17/23 17:32 Physical Examination - Vital Signs Vital Signs: Vital Signs Temp Pulse Pulse Resp BP BP Pulse Ox 07/21/23 09:30 70 18 07/21/23 09:13 60 18 07/21/23 07:00 57 L 22 99/65 89 L 07/21/23 06:00 55 L 18 106/70 96 07/21/23 05:00 54 L 13 81/55 92 L 07/21/23 04:00 98.2 F 64 13 94/55 86 L 07/21/23 03:00 56 L 18 98/52 95 07/21/23 02:00 59 L 15 87/53 98 07/21/23 01:30 56 L 14 85/58 96 07/21/23 01:00 56 L 29 H 80/55 96 07/21/23 00:30 58 L 21 90/64 95 07/21/23 00:00 98.2 F 61 17 84/58 94 L 07/20/23 23:30 61 21 104/94 95 07/20/23 23:00 61 30 H 124/99 95 07/20/23 22:30 128 H 22 102/88 94 L 07/20/23 22:00 176 H 18 109/64 95 07/20/23 21:30 110 H 26 H 94/53 07/20/23 21:00 29 H 84/47 94 L 10/22/23 20:30 85 21 102/53 94 L 07/20/23 16:45 72 07/20/23 16:29 72 07/20/23 15:25 98.7 F 72 18 108/68 93 L 07/20/23 13:24 72 07/20/23 13:08 72 Intake and Output 07/20/23 07/21/23 07/21/23 22:59 06:59 14:59 Intake Total 722 89 Output Total 0 0 0 Balance 0 722 89 Intake: IV 350 50 Sodium Chloride 0.9% 1, 350 50 000 ml @ 50 mls/hr IV . Q20H [facility] Rx#:[id number] Tube Feeding 312 39 Other 60 Output: Urine 0 0 0 Other: Weight 92 kg GENERAL: The patient is lying in bed and is not in acute distress. NEUROLOGICAL: Higher mental function: The patient is awake, alert, oriented to self, place and time. Patient is following commands. No aphasia and no neglect. Cranial nerves: The pupils are round, equal and reactive to light and accommodat ion. Visual hadley are full to confrontation throughout. Extraocular movement is intact no nystagmus is noted. Facial sensation is normal to touch throughout. The facial strength is normal throughout. Hearing is mildly decreased bilaterally to hand rub. Tongue is midline and moved [id number] without any difficulty. No dysarthria is noted. Shoulder shrug is normal bilaterally. Motor: The strength is moving all extremities above gravity. Normal tone and bulk. Cerebellum: Normal finger to nose heel to chin bilaterally. Sensation: Sensation is normal to touch throughout. Reflexes (right/left): 2+ throughout. Plantars are mute bilaterally. Results - Laboratory Findings CBC and BMP: 07/21/23 04:35 07/21/23 04:35 Abnormal Lab Findings: Abnormal Labs 07/17/23 07/17/23 07/19/23 14:43 14:43 04:01 WBC 13.6 H 13.65 H RBC Hgb MCV 100.2 H MCHC 31.7 L Plt Count Neutrophils # 10.2 H 10.22 H ABG pCO2 ABG HCO3 ABG Total CO2 ABG O2 Saturation Sodium Potassium Carbon Dioxide Anion Gap Creatinine 0.56 L Glucose 100 H POC Glucose (mg/dL) Plasma Lactic Acid Otto Calcium Magnesium Alkaline Phosphatase 135 H Troponin I Total Protein Albumin 07/19/23 07/20/23 07/20/23 04:01 05:15 18:51 WBC RBC Hgb MCV MCHC Plt Count Neutrophils # ABG pCO2 ABG HCO3 ABG Total CO2 ABG O2 Saturation Sodium 147 H Potassium Carbon Dioxide 33.0 H Anion Gap 12.70 H Creatinine Glucose 111 H 126 H POC Glucose (mg/dL) 140 H Plasma Lactic Acid Otto Calcium Magnesium Alkaline Phosphatase 155 H Troponin I Total Protein 6.1 L Albumin 07/20/23 07/20/23 07/20/23 20:00 20:00 20:07 WBC RBC Hgb MCV MCHC Plt Count Neutrophils # ABG pCO2 ABG HCO3 ABG Total CO2 ABG O2 Saturation Sodium Potassium 3.4 L Carbon Dioxide Anion Gap Creatinine Glucose 175 H POC Glucose (mg/dL) 158 H Plasma Lactic Acid Otto 2.6 H* Calcium Magnesium 6.0 H* Alkaline Phosphatase 162 H Troponin I Total Protein 5.8 L Albumin 3.4 L 07/20/23 07/21/23 07/21/23 23:32 02:05 02:18 WBC RBC Hgb MCV MCHC Plt Count Neutrophils # ABG pCO2 48 H ABG HCO3 33 H ABG Total CO2 34 H ABG O2 Saturation 97.3 H Sodium Potassium Carbon Dioxide Anion Gap Creatinine Glucose POC Glucose (mg/dL) 153 H Plasma Lactic Acid Otto Calcium Magnesium Alkaline Phosphatase Troponin I 0.715 H* Total Protein Albumin 07/21/23 07/21/23 07/21/23 04:35 04:35 04:35 WBC RBC 4.02 L Hgb 12.8 L D MCV MCHC Plt Count 137 L Neutrophils # ABG pCO2 ABG HCO3 ABG Total CO2 ABG O2 Saturation Sodium Potassium Carbon Dioxide 33 H Anion Gap Creatinine Glucose POC Glucose (mg/dL) Plasma Lactic Acid Otto Calcium 8.3 L Magnesium 3.0 H Alkaline Phosphatase Troponin I 0.989 H* Total Protein Albumin Assessment and Plan Assessment: This is a 63-year-old gentleman with history of seizures on Dilantin who had suspected seizure-like activity yesterday by the nursing staff and no further seizures overnight or today. Suspected breakthrough seizure and the patient was given IV Ativan and was resumed on his home dose of Dilantin 200 mg 1 tablet twice a day. Unsure if patient seizure was provoked due to metabolic derangement or arrhythmia. Hypermagnesemia and currently patient has hypomagnesemia Unstable wide-complex tachycardia arrhythmia with possible ventricular tachycardia Dysphagia status post PEG tube History of seizures History of stroke Benign essential tremor Chronic hypoxic respiratory failure on nasal OBSTRUCTIVE SLEEP APNEA SYSTEMIC LUPUS ARTHRITIS, LUPUS NEPHRITIS ON CELLCEPT CHRONIC ONGOING TOBACCO USE Plan: I ordered a routine EEG I ordered the dilantin level. In addition to his home dose of Dilantin 200 mg 1 tablet twice a day I started the patient on Vimpat 50 mg twice a day. It seems that the patient was tried on Keppra in the past but had behavioral changes will avoid Keppra use Seizure precautions and seizure pads. Patient is also on Lyrica 200 mg 1 tablet 3 times a day likely for neuropathy but is a week antiepileptic drug. He is also on the home dose of valproic acid 250 mg 1 tablet twice a day which can be used for mood and can be used for antiepileptic. He was notified because of his seizures to avoid driving for 6 month until Z seizure-free, avoid heights, avoid swimming unassisted or using heavy machinery. We'll defer the rest of the medical management to the primary and other specialists Recommend the patient to follow-up with a neurologist as an outpatient within 2- 3 weeks Plan discussed with the patient and his nurse. Thank you for the consultation. Time with Patient: Greater than 30
--- NOTE | 2023-07-21 13:50 | P.PN ---
Subjective Progress Note Date: 07/21/23 This is a 63-year-old male well known to me. He has chronic respiratory failure. He continues to smoke. He has a history of lupus and Freytes. Over the past several months he has complaints of coughing hoarseness in trouble swallowing. We have been unable to schedule him with an ear nose and throat doctor. A barium swallow test was ordered for evaluation, and he was found to be aspirating. He modified barium swallow testWas ordered and they were unable to not have him aspirate even with honey thick liquids. He came in through the emergency room and is now admitted for peg tube placement so that he may remain NPO as to not continue to develop pneumonia. At this time he has no complaints and is waiting his surgery. 07/19/2023: Patient is postop day 1 PEG tube placement for severe aspiration. EGD failed to show any significant strictures or abnormalities. ENT is unavailable to me bedside procedures at this time. General surgery and signed off as gastric urology perform the PEG tube. Patient's home medications will be restarted. Dietary will recommend feeding for him. He denies any chest pains pressures at this time. He does have ongoing chronic low back pain. Has been receiving Dilaudid for this. He is a known heavy smoker and has a nicotine patch ordered. He has oxygen-dependent COPD along with lupus nephritis and multiple other comorbidities. Currently the patient denies any chest pains or pressures. Just the shortness breath with exertion. 07/20/2023: Patient is reevaluated today. He is postop day #2 of PEG tube placement. He has tube feedings running at this time. Jevity 1.5 at 20 mL an hour with a goal of increasing it by 10 ML's every 8 hours to a goal of 39 miles per hour. 30 mL flush every 4 hours. At this time all his medications and converted to PEG tube feedings with the exception of her CellCept. This may not be crushed. Dr. Shannon and consult it since this was originally for post nephritis. Patient denies any chest pains pressures, as his chronic shortness of breath. Denies any nausea or nausea or vomiting. 07/21/2023 transferred to ICU last night after development of a wide complex tachycardia, appearing like V. tach, accompanied by hypotension, change in mental status and two - three appearing seizure-like activities. Brain CT reported no acute hemorrhage, hydrocephalus or mass effect. Lactic acid last 2.6 around the time of the event, decreased to 1 approximately 4 hours post. Received amiodarone and lidocaine and magnesium, returned into normal sinus rhythm. Magnesium level II.1 prior to the event, level of 6 last night(received magnesium during code) and early this morning decreased to 3. Received Ativan with no further seizure activity. Currently sinus rhythm, fluctuating with some A. fib, maintained on both amiodarone and lidocaine drips. Denies chest pain, palpitations or shortness of breath., Maintaining O2 sats in the 90s on 3 L nasal cannula. Evaluated by ENT with recommendations noted and appreciated, including a suspension microlaryngoscopy under general anesthesia to evaluate his lower larynx and upper airway with the concern of possible malignancy. Troponins 0.014, 0.715, 0.989. Evaluated by cardiology, recommending cardiac catheterization tomorrow. Renal function stable .afebrile, normal WBC .hemoglobin 12.8, platelets 137. Blood sugars controlled .Neurology consult in place Recommendations pending. Patient appears indecisive. Objective - Vital Signs Vital signs: Vital Signs Temp 98.2 F 07/21/23 04:00 Pulse 70 07/21/23 09:30 Resp 18 07/21/23 09:30 BP 99/65 07/21/23 07:00 Pulse Ox 89 L 07/21/23 07:00 FiO2 Intake & Output 07/20/23 07/21/23 07/21/23 18:59 06:59 18:59 Intake Total 722 89 Output Total 0 0 Balance 722 89 Weight 92 kg Intake: IV 350 50 Sodium Chloride 0.9% 1, 350 50 000 ml @ 50 mls/hr IV . Q20H [facility] Rx#:[id number] Tube Feeding 312 39 Other 60 Output: Urine 0 0 Other: Voiding Method Toilet Urinal - Exam - Exam General: Alert and oriented 3, sitting up in bed, no acute distress. Neck: supple,no JVD. Cardiovascular: S1S2 is normal, There is a regular rate and rhythm. No rub or gallop is appreciated. Positive systolic murmur. Respiratory: Lungs are coarse but equal bilaterally with no active wheezes rales or crackles at this time. Gastrointestinal: Soft, non-distended, non-tender abdomen without masses or organomegaly noted. There is no rebound or guarding present. Bowel sounds are unremarkable. PEG tube is clean dry and intact Musculoskeletal: Normal ROM, no tenderness,no pedal edema, no calf tenderness or swelling. Neurological: CN II-XII intact, there are no obvious motor or sensory deficits. Coordination appears grossly intact. Speech is fluent, normal. Skin: warm and dry, no rashes noted. - Labs CBC & Chem 7: 07/21/23 04:35 07/21/23 04:35 Labs: Abnormal Lab Results - Last 24 Hours (Table) 07/20/23 07/20/23 07/20/23 Range/Units 05:15 18:51 20:00 RBC (4.30-5.90) m/uL Hgb (13.0-17.5) gm/dL Plt Count (150-450) k/uL ABG pCO2 (35-45) mmHg ABG HCO3 (21-25) mmol/L ABG Total CO2 (19-24) mmol/L ABG O2 Saturation (94-97) % Sodium 147 H (135-145) mmol/L Potassium 3.4 L (3.5-5.1) mmol/L Carbon Dioxide 33.0 H (21.6-31.8) mmol/L Glucose 126 H 175 H (70-110) mg/dL POC Glucose (mg/dL) 140 H (70-110) mg/dL Plasma Lactic Acid Otto (0.7-2.0) mmol/L Calcium (8.4-10.2) mg/dL Magnesium 6.0 H* (1.6-2.3) mg/dL Alkaline Phosphatase 162 H (38-126) U/L Troponin I (0.000-0.034) ng/mL Total Protein 5.8 L (6.3-8.2) g/dL Albumin 3.4 L (3.5-5.0) g/dL 07/20/23 07/20/23 07/20/23 Range/Units 20:00 20:07 23:32 RBC (4.30-5.90) m/uL Hgb (13.0-17.5) gm/dL Plt Count (150-450) k/uL ABG pCO2 (35-45) mmHg ABG HCO3 (21-25) mmol/L ABG Total CO2 (19-24) mmol/L ABG O2 Saturation (94-97) % Sodium (135-145) mmol/L Potassium (3.5-5.1) mmol/L Carbon Dioxide (21.6-31.8) mmol/L Glucose (70-110) mg/dL POC Glucose (mg/dL) 158 H (70-110) mg/dL Plasma Lactic Acid Otto 2.6 H* (0.7-2.0) mmol/L Calcium (8.4-10.2) mg/dL Magnesium (1.6-2.3) mg/dL Alkaline Phosphatase (38-126) U/L Troponin I 0.715 H* (0.000-0.034) ng/mL Total Protein (6.3-8.2) g/dL Albumin (3.5-5.0) g/dL 07/21/23 07/21/23 07/21/23 Range/Units 02:05 02:18 04:35 RBC (4.30-5.90) m/uL Hgb (13.0-17.5) gm/dL Plt Count (150-450) k/uL ABG pCO2 48 H (35-45) mmHg ABG HCO3 33 H (21-25) mmol/L ABG Total CO2 34 H (19-24) mmol/L ABG O2 Saturation 97.3 H (94-97) % Sodium (135-145) mmol/L Potassium (3.5-5.1) mmol/L Carbon Dioxide 33 H (21.6-31.8) mmol/L Glucose (70-110) mg/dL POC Glucose (mg/dL) 153 H (70-110) mg/dL Plasma Lactic Acid Otto (0.7-2.0) mmol/L Calcium 8.3 L (8.4-10.2) mg/dL Magnesium 3.0 H (1.6-2.3) mg/dL Alkaline Phosphatase (38-126) U/L Troponin I (0.000-0.034) ng/mL Total Protein (6.3-8.2) g/dL Albumin (3.5-5.0) g/dL 07/21/23 07/21/23 Range/Units 04:35 04:35 RBC 4.02 L (4.30-5.90) m/uL Hgb 12.8 L D (13.0-17.5) gm/dL Plt Count 137 L (150-450) k/uL ABG pCO2 (35-45) mmHg ABG HCO3 (21-25) mmol/L ABG Total CO2 (19-24) mmol/L ABG O2 Saturation (94-97) % Sodium (135-145) mmol/L Potassium (3.5-5.1) mmol/L Carbon Dioxide (21.6-31.8) mmol/L Glucose (70-110) mg/dL POC Glucose (mg/dL) (70-110) mg/dL Plasma Lactic Acid Otto (0.7-2.0) mmol/L Calcium (8.4-10.2) mg/dL Magnesium (1.6-2.3) mg/dL Alkaline Phosphatase (38-126) U/L Troponin I 0.989 H* (0.000-0.034) ng/mL Total Protein (6.3-8.2) g/dL Albumin (3.5-5.0) g/dL Assessment and Plan Assessment: (1) Aspiration into airway Current Visit: Yes Status: Acute Code(s): T17.908A - UNSP FB IN RESP TRACT, PART UNSP CAUSING OTH INJURY, INIT SNOMED Code(s): 159217371 (2) Abnormal computed tomography of soft tissue of neck Current Visit: Yes Status: Acute Code(s): R93.89 - ABNORMAL FINDINGS ON DX IMAGING OF OTH BODY STRUCTURES SNOMED Code(s): 241796012 (3) Coronary artery disease Current Visit: Yes Status: Acute Code(s): I25.10 - ATHSCL HEART DISEASE OF [place] CORONARY ARTERY W/O ANG PCTRS SNOMED Code(s): 16128503 (4) Dysphagia Current Visit: Yes Status: Acute Code(s): R13.10 - DYSPHAGIA, UNSPECIFIED SNOMED Code(s): 33725898 (5) History of cervical spinal surgery Current Visit: Yes Status: Acute Code(s): Z98.890 - OTHER SPECIFIED POSTPROCEDURAL STATES SNOMED Code(s): 238375445 (6) COPD (chronic obstructive pulmonary disease) Current Visit: No Status: Acute Code(s): J44.9 - CHRONIC OBSTRUCTIVE PULMONARY DISEASE, UNSPECIFIED SNOMED Code(s): 11885036 (7) Chronic kidney disease Current Visit: No Status: Acute Code(s): N18.9 - CHRONIC KIDNEY DISEASE, UNSPECIFIED SNOMED Code(s): 702821297 (8) Chronic systolic (congestive) heart failure Current Visit: No Status: Acute Code(s): I50.22 - CHRONIC SYSTOLIC (CONGESTIVE) HEART FAILURE SNOMED Code(s): 807666081 (9) HTN (hypertension) Current Visit: No Status: Acute Code(s): I10 - ESSENTIAL (PRIMARY) HYPERTENSION SNOMED Code(s): 85292552 (10) History of seizure disorder Current Visit: No Status: Acute Code(s): Z86.69 - PERSONAL HISTORY OF DIS OF THE NERVOUS SYS AND SENSE ORGANS SNOMED Code(s): 201895754 (11) Hypoxemia Current Visit: No Status: Acute Code(s): R09.02 - HYPOXEMIA SNOMED Code(s): 169462431 (12) Ischemic heart disease Current Visit: No Status: Acute Code(s): I25.9 - CHRONIC ISCHEMIC HEART DISEASE, UNSPECIFIED SNOMED Code(s): 070936324 (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 Current Visit: No Status: Acute Code(s): M32.14 - GLOMERULAR DISEASE IN SYSTEMIC LUPUS ERYTHEMATOSUS SNOMED Code(s): 06899160 (14) Nicotine addiction Current Visit: No Status: Acute Code(s): F17.200 - NICOTINE DEPENDENCE, UNSPECIFIED, UNCOMPLICATED SNOMED Code(s): 12515760 (15) Type 2 diabetes mellitus without complications Current Visit: No Status: Acute Code(s): E11.9 - TYPE 2 DIABETES MELLITUS WITHOUT COMPLICATIONS SNOMED Code(s): 492997115 (16) S/P percutaneous endoscopic gastrostomy (PEG) tube placement Current Visit: Yes Status: Acute Code(s): Z93.1 - GASTROSTOMY STATUS SNOMED Code(s): 612329243 (17) morbid obesity, BMI 30 (18) suspected breakthrough seizures reported possibly related to arrhythmia/V. tach, abnormal electrolytes (19) wide complex tachyarrhythmia, possibly V. tach Plan: Continue on current medication regime ,monitoring and symptomatic treatment. 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 Recently evaluated by cardiology, recommending proceeding with cardiac catheterization tomorrow. Antiarrhythmics as per cardiology. Neurology evaluation/workup pending. Dilantin level pending .Once stabilized, patient will require further ENT workup under general anesthesia at a tertiary care center. Smoking cessation reinforced. Plan: Continue on current medication regime ,monitoring and symptomatic treat ment.
[2023-07-21 13:55] LABS: Appearance,Urine Clear (Clear); Bilirubin,Urine Negative (Negative); Blood,Urine Negative (Negative); Color,Urine Yellow; Glucose,Urine (UA) Negative (Negative); Ketones,Urine Negative (Negative); PH, Urine 5.5 (5.0-8.0); Protein,Urine Trace (Negative); Specific Gravity,Urine 1.025 (1.001-1.035)
[2023-07-21 13:56] LABS: Leukocyte Esterase,Urine Negative (Negative); Nitrite,Urine Negative (Negative)
--- NOTE | 2023-07-21 14:39 | CA ---
Transthoracic Echo Report Name: Power Fajardo Age: 63 Gender: M : 1960 Exam Date: 07/21/2023 11:34 Exam Location: [place] [facility] Ht (in): 69 Wt (lb): 202 Ordering Physician: Alexander Schmitt DO ([email or web address]) Attending/Referring Phys: [employer] Supervisor Veronica Schulz RDCS Procedure CPT: Indications: VTach Cardiac Hx: Technical Quality: Technically difficult study Contrast 1: Lumason Total Dose (mL): 3 Contrast 2: Total Dose (mL): MEASUREMENTS (Male / Female) Normal Values 2D ECHO LV Diastolic Diameter PLAX 5.7 cm 4.2 - 5.9 / 3.9 - 5.3 cm LV Systolic Diameter PLAX 4.8 cm IVS Diastolic Thickness 1.0 cm 0.6 - 1.0 / 0.6 - 0.9 cm LVPW Diastolic Thickness 1.2 cm 0.6 - 1.0 / 0.6 - 0.9 cm LV Relative Wall Thickness 0.4 RV Internal Dim ED PLAX 3.1 cm LA Systolic Diameter LX 3.3 cm 3.0 - 4.0 / 2.7 - 3.8 cm LV Diastolic Volume MOD BP 132.7 cm??? 67 - 155 / 56 - 104 cm??? LV Systolic Volume MOD BP 91.7 cm??? - 58 / 19 - 49 cm??? LV Ejection Fraction MOD BP 30.9 % >= 55 % LV Cardiac Index MOD BP 1151.2 cm???/min???m??? LV Diastolic Volume MOD 4C 111.3 cm??? LV Systolic Volume MOD 4C 71.7 cm??? LV Ejection Fraction MOD 4C 35.6 % LV Cardiac Index MOD 4C 1113.7 cm???/min???m??? LV Diastolic Length 4C 8.3 cm LV Systolic Length 4C 7.1 cm LV Diastolic Volume MOD 2C 150.8 cm??? LV Systolic Volume MOD 2C 93.1 cm??? LV Ejection Fraction MOD 2C 38.3 % LV Cardiac Index MOD 2C 1621.0 cm???/min???m??? LV Diastolic Length 2C 8.8 cm LV Systolic Length 2C 9.1 cm LA Volume 77.1 cm??? 18 - 58 / 22 - 52 cm??? LA Volume Index 36.1 cm???/m??? 16 - 28 cm???/m??? M-MODE Aortic Root Diameter MM 3.4 cm MV E Point Septal Separation 1.3 cm AV Cusp Separation MM 1.8 cm DOPPLER AV Peak Velocity 171.5 cm/s AV Peak Gradient 11.8 mmHg MV Area PHT 4.3 cm??? Mitral E Point Velocity 65.8 cm/s Mitral A Point Velocity 61.6 cm/s Mitral E to A Ratio 1.1 MV Deceleration Time 178.4 ms MV E' Velocity 6.7 cm/s Mitral E to MV E' Ratio 9.9 TR Peak Velocity 241.9 cm/s TR Peak Gradient 23.4 mmHg Right Ventricular Systolic Press 27.9 mmHg FINDINGS Left Ventricle Left ventricular ejection fraction is estimated at 20-25 %. Left ventricular cavity size normal. Severely increased left ventricular systolic volume. Moderately decreased left ventricular ejection fraction. Right Ventricle Normal right ventricular size. Right ventricular systolic pressure within normal limits. Right Atrium Normal right atrial size. Left Atrium Moderately increased left atrial volume. Mildly increased left atrial area. Mitral Valve Structurally normal mitral valve. Trace to mild mitral regurgitation. Aortic Valve Trileaflet aortic valve. No aortic valve stenosis or regurgitation. Tricuspid Valve Structurally normal tricuspid valve. Mild tricuspid regurgitation. Pulmonic Valve Structurally normal pulmonic valve. Trace pulmonic regurgitation. Pericardium No pericardial effusion. Aorta Normal size aortic root and proximal ascending aorta. CONCLUSIONS Technically difficult study. Severely reduced LV systolic function with EF 20-25% Globally reduced LV systolic function No significant valvular dysfunction IVC is collapsible When compared to prior echo, LVEF on current study significantly reduced Previewed by: Dr Jordan Moreno (Electronically Signed) Final Date: 21 July 2023 14:38
[2023-07-21] MEDS: SODIUM CHLORIDE 0.9% 1,000 ML IV SCH (17:41)
[2023-07-21] MEDS: AMITRIPTYLINE HCL 25 MG TAB PO SCH (20:28)
[2023-07-21] MEDS: AMIODARONE 200 MG TAB PO SCH (20:28)
--- NOTE | 2023-07-21 21:02 | EEG ---
ELECTROENCEPHALOGRAM REPORT CLINICAL HISTORY: This is a 63-year-old gentleman with history of seizure, who had a breakthrough seizure on 07/20/2023. The video EEG is obtained to evaluate for seizure and epileptiform activity. RELEVANT MEDICATIONS: Dilantin. EEG TYPE: A routine 21-channel EEG with video using the 10/20 electrode placement system. DESCRIPTION: Wakefulness and drowsiness are obtained. During awake state, the posterior-dominant rhythm consists of low voltage of 8.5 to 9 Hz activity. There is no physiological stage II sleep architecture. There is no focal slowing. INTERICTAL AND ICTAL: None. ACTIVATION PROCEDURE: Photic stimulation did not evoke a posterior driving response. There is no abnormality during the photic stimulation. Hyperventilation is not performed. CLINICAL INTERPRETATION: This is a normal routine EEG. There is no focal slowing, epileptiform discharge, or seizure on the EEG. A normal routine EEG does not rule out underlying epilepsy. Clinical correlation is recommended. DURGA / KARLI: [id number] /
--- NOTE | 2023-07-21 22:18 | P.PN ---
Subjective History of present illness: Cardiology was paged on urgent bases at patient was noticed to be in Tachycardic rhythm and seziure which was not getting controlled. A team could not determine what was the rhythm and was not responding to adenosine. Patient was no code with DNI and no compressions and shocking orders. On bedside evaluation patient was noticed to be in Vtac HR 200. Patient got 150mg amiodarone x 2 which broke the Vtach. He was intermittently going in Vtach for which we gave 4 gm Mgso4 and 100 mg lidocaine, After this patient stabilized. During the code, patient was loosing pulse intermittently but being no chest compressions order, no chest compressions were performed. Patient was somnolent but arousable after ROSC ECG after ROSC showed NSR with lateral ST depressions and frequent PVCs, monomorphic. 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 07/21 Patient seen and examined. Denies any chest pain or pressure. Troponins mildly elevated. No further VT. No seizure like activity. Admits has had a number of cardiac arrests in the past. Has been recommended to undergo AICD placement in the past. Echo shows EF decreased to 20-25%. Wanting to go home and long discussion regarding need to stay. PHYSICAL EXAMINATION Vital signs reviewed. Lungs: Poor inspiratory effort, mild crackles audible. Heart: Regular rate and rhythm, S1-S2, no S3, no murmur or rub. Abdomen: Soft nontender, Extremities: 1+ peripheral edema Neuro: Patient is alert ASSESSMENT Sustained ventricular tachycardia Cardiac arrest status post return of spontaneous circulation DNR/DNI Lupus Nephritis Aspiration COPD SMoker CAD with history of prior PCI NSTEMI Cardiomyopathy EF 20-25% PLAN Continue with amiodarone however appears somewhat more stable and we will discontinue the lidocaine drip for now. Given cardiomyopathy with worsened EF we will check a left heart catheterization. Patient with multiple histories of cardiac arrest per patient and AICD recommended for secondary prevention. Had a history of bradycardia in the past however needs to be on Beta himanshu. Long discussion regarding importance of medical compliance. Prognosis guarded. Objective - Vital Signs Vital signs: Vital Signs Temp 98.1 F 07/21/23 20:00 Pulse 65 10/23/23 21:00 Resp 21 07/21/23 21:00 BP 121/76 07/21/23 21:00 Pulse Ox 95 07/21/23 21:00 FiO2 Intake & Output 07/21/23 07/21/23 07/22/23 06:59 18:59 06:59 Intake Total 722 1268 199 Output Total 0 800 500 Balance 722 468 -301 Weight 92 kg 92 kg Intake: IV 350 600 150 Sodium Chloride 0.9% 1, 350 600 150 000 ml @ 50 mls/hr IV . Q20H [facility] Rx#:[id number] Tube Feeding 312 518 49 Other 60 150 Output: Urine 0 800 500 Other: Voiding Method External Catheter # Voids 0 - Labs CBC & Chem 7: 07/21/23 04:35 07/21/23 04:35 Labs: Abnormal Lab Results - Last 24 Hours (Table) 07/20/23 07/21/23 07/21/23 Range/Units 23:32 02:05 02:18 RBC (4.30-5.90) m/uL Hgb (13.0-17.5) gm/dL Plt Count (150-450) k/uL ABG pCO2 48 H (35-45) mmHg ABG HCO3 33 H (21-25) mmol/L ABG Total CO2 34 H (19-24) mmol/L ABG O2 Saturation 97.3 H (94-97) % Carbon Dioxide (22-30) mmol/L POC Glucose (mg/dL) 153 H (70-110) mg/dL Calcium (8.4-10.2) mg/dL Magnesium (1.6-2.3) mg/dL Troponin I 0.715 H* (0.000-0.034) ng/mL 07/21/23 07/21/23 07/21/23 Range/Units 04:35 04:35 04:35 RBC 4.02 L (4.30-5.90) m/uL Hgb 12.8 L D (13.0-17.5) gm/dL Plt Count 137 L (150-450) k/uL ABG pCO2 (35-45) mmHg ABG HCO3 (21-25) mmol/L ABG Total CO2 (19-24) mmol/L ABG O2 Saturation (94-97) % Carbon Dioxide 33 H (22-30) mmol/L POC Glucose (mg/dL) (70-110) mg/dL Calcium 8.3 L (8.4-10.2) mg/dL Magnesium 3.0 H (1.6-2.3) mg/dL Troponin I 0.989 H* (0.000-0.034) ng/mL
[2023-07-22] MEDS: oxyCODONE-APAP 10-325MG 1 EACH TAB PO PRN ×3 (03:03→15:50)
[2023-07-22 04:25] LABS: Basophils % (A) 0 %; Eosinophils # (A) 0.2 k/uL (0-0.7); Eosinophils % (A) 2 %; Lymphocytes # (A) 1.6 k/uL (1.0-4.8); Lymphocytes % (A) 14 %; MCH 33.2 pg (25.0-35.0); MCHC 33.3 g/dL (31.0-37.0); MCV 99.7 fL (80.0-100.0); Mean Platelet Volume 8.8; Monocytes # (A) 0.6 k/uL (0-1.0); Monocytes % (A) 5 %; Neutrophils # (A) 8.8 k/uL (1.3-7.7); Neutrophils % (A) 78 %; Platelet Count 126 k/uL (150-450); RBC 3.91 m/uL (4.30-5.90); RDW 12.9 % (11.5-15.5); WBC 11.2 k/uL (3.8-10.6)
[2023-07-22 04:33] LABS: ALT 28 U/L (4-49); AST 23 U/L (17-59); African American GFR (CKD) >90 (>60 ml/min/1.73 sqM); Albumin 2.9 g/dL (3.5-5.0); Alkaline Phosphatase 129 U/L (38-126); Anion Gap 5 mmol/L; Blood Urea Nitrogen 10 mg/dL (9-20); Calcium 8.4 mg/dL (8.4-10.2); Carbon Dioxide 34 mmol/L (22-30); Chloride 102 mmol/L (98-107); Glucose 157 mg/dL (74-99); Non-African American GFR(CKD) >90 (>60 ml/min/1.73 sqM); Potassium 3.6 mmol/L (3.5-5.1); Sodium 141 mmol/L (137-145); Total Bilirubin 0.6 mg/dL (0.2-1.3); Total Protein 5.2 g/dL (6.3-8.2)
[2023-07-22] MEDS: IPRATROPIUM-ALBUTEROL 3 ML NEB INHALATION PRN (05:13)
[2023-07-22] MEDS ORDERED: POTASSIUM BICARBONATE/CIT AC 20 MEQ TABLET.EFF NG-TUBE SCH (06:00)
[2023-07-22 06:38] LABS: Glucose,Whole Blood 148 mg/dL (70-110)
[2023-07-22] MEDS ORDERED: ALPRAZolam 0.5 MG TAB PO PRN (08:02)
[2023-07-22] MEDS ORDERED: ALPRAZolam 0.25 MG TAB PO PRN (08:02)
[2023-07-22] MEDS ORDERED: NITROGLYCERIN SL TABS 0.4 MG TAB SUBLINGUAL PRN (08:02)
[2023-07-22] MEDS ORDERED: ATORVASTATIN 80 MG TAB PO STA (08:02)
[2023-07-22] MEDS ORDERED: ASPIRIN 325 MG TAB PO STA (08:02)
[2023-07-22] MEDS: IPRATROPIUM 0.5 MG/2.5 ML NEBU INHALATION SCH ×4 (08:28→20:04)
[2023-07-22] MEDS: SYMBICORT 80-4.5 MCG INHALER INHALATION SCH ×2 (08:30→20:04)
--- NOTE | 2023-07-22 09:06 | P.PN ---
Subjective History of present illness: Cardiology was paged on urgent bases at patient was noticed to be in Tachycardic rhythm and seziure which was not getting controlled. A team could not determine what was the rhythm and was not responding to adenosine. Patient was no code with DNI and no compressions and shocking orders. On bedside evaluation patient was noticed to be in Vtac HR 200. Patient got 150mg amiodarone x 2 which broke the Vtach. He was intermittently going in Vtach for which we gave 4 gm Mgso4 and 100 mg lidocaine, After this patient stabilized. During the code, patient was loosing pulse intermittently but being no chest compressions order, no chest compressions were performed. Patient was somnolent but arousable after ROSC ECG after ROSC showed NSR with lateral ST depressions and frequent PVCs, monomorphic. 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 07/21 Patient seen and examined. Denies any chest pain or pressure. Troponins mildly elevated. No further VT. No seizure like activity. Admits has had a number of cardiac arrests in the past. Has been recommended to undergo AICD placement in the past. Echo shows EF decreased to 20-25%. Wanting to go home and long discussion regarding need to stay. 07/22 Patient seen and examined. Attempted scheduling of heart catheterization today however appears due to logistics likely will not be done until tomorrow. He was transitioned from IV amiodarone to oral amiodarone. He denies any chest pain or pressure. He is fixated that he can prevent similar episodes by taking nitroglycerin at home. PHYSICAL EXAMINATION Vital signs reviewed. Lungs: Poor inspiratory effort, mild crackles audible. Heart: Regular rate and rhythm, S1-S2, no S3, no murmur or rub. Abdomen: Soft nontender, Extremities: 1+ peripheral edema Neuro: Patient is alert ASSESSMENT Sustained ventricular tachycardia Cardiac arrest status post return of spontaneous circulation DNR/DNI Lupus Nephritis Aspiration COPD SMoker CAD with history of prior PCI NSTEMI Cardiomyopathy EF 20-25% PLAN Continue with oral amiodarone. There was previous concern regarding bradycardia and may also have some component of tachybradycardia syndrome, sick sinus syndrome. Recommend heart catheterization to exclude any underlying coronary artery disease and if no acute coronary syndrome, and AICD would be recommended. Discussed recommendations for both heart catheterization and likely AICD however patient very resistant. Objective - Vital Signs Vital signs: Vital Signs Temp 98.1 F 07/22/23 08:00 Pulse 65 07/22/23 08:44 Resp 28 H 07/22/23 08:00 BP 113/68 07/22/23 08:00 Pulse Ox 95 07/22/23 08:00 FiO2 Intake & Output 07/21/23 07/22/23 07/22/23 18:59 06:59 18:59 Intake Total 1268 649 155 Output Total 800 500 0 Balance 468 149 155 Weight 92 kg 93.7 kg Intake: IV 600 600 100 Sodium Chloride 0.9% 1, 600 600 100 000 ml @ 50 mls/hr IV . Q20H [facility] Rx#:[id number] Tube Feeding 518 49 55 Other 150 Output: Urine 800 500 0 Other: Voiding Method External Catheter # Voids 0 - Labs CBC & Chem 7: 07/22/23 04:07 07/22/23 04:07 Labs: Abnormal Lab Results - Last 24 Hours (Table) 07/22/23 07/22/23 07/22/23 Range/Units 04:07 04:07 06:37 WBC 11.2 H (3.8-10.6) k/uL RBC 3.91 L (4.30-5.90) m/uL Plt Count 126 L (150-450) k/uL Neutrophils # 8.8 H (1.3-7.7) k/uL Carbon Dioxide 34 H (22-30) mmol/L Creatinine 0.55 L (0.66-1.25) mg/dL Glucose 157 H (74-99) mg/dL POC Glucose (mg/dL) 148 H (70-110) mg/dL Alkaline Phosphatase 129 H (38-126) U/L Total Protein 5.2 L (6.3-8.2) g/dL Albumin 2.9 L (3.5-5.0) g/dL
--- NOTE | 2023-07-22 09:11 | P.PN ---
Subjective Progress Note Date: 07/22/23 I am seeing this patient in new consultation today 07/21/2023 after he was kwok sferred to the intensive care unit last night due to an unstable tachyarrhythmia, possibly V. tach. Patient is a 63-year-old white male with past medical history significant for atrial fibrillation, coronary artery disease with prior PCI/stents 7, heart failure, prior CVA/TIA with residual right-sided weakness, hyperlipidemia, hypertension, COPD, chronic oxygen dependence, chronic ongoing tobacco dependence, obstructive sleep apnea noncompliant with CPAP, prior C-spine fusion, seizure disorder, SLE and lupus nephritis, among other things. Patient originally came to the emergency room back on July 17 complaining of difficulty swallowing. He's had trouble swallowing solid and liquid foods. This has been ongoing for the past 5 months, but has worsened over the last week. He denies any odynophagia or hematemesis. Denies weight loss. He did have an EGD on July 18, and a PEG tube was successfully placed. During the procedure, the patient did not have any significant esophageal strictures or obstructions. On admission, a CT of the neck showed soft tissue thickening and indistinctness involving the glottic and supraglottic airway. At the moment of the CT there was no palmira airway at the level of the glottis presumably due to redundant soft tissue at the moment of imaging. Otherwise unremarkable. Postoperatively, the patient was recovering on the general medical floor. Last night, he became tachycardic and hypotensive. An A-team was called. Patient was found to be in a wide complex tachyarrhythmia, possibly ventricular tachycardia. Rhythm was terminated with 2 doses of 150 mg amiodarone, 100 mg of lidocaine, 4 g of magnesium sulfate. Patient is a DO NOT RESUSCITATE. He does not want CPR, defibrillation, or mechanical ventilation. He is okay with medications. There are reports the patient may also have had 2 generalized tonic-clonic seizures. Patient's last reported seizure before this was 3 years ago. Patient denies missing any of his antiepileptic medications despite having difficulty swallowing. Seizure-like activity was terminated with 1 mg of Ativan. Patient was then transferred to intensive care unit. Currently, the patient is sitting up in bed, on 3 L/m nasal cannula, in no acute distress. Blood pressure is normotensive. Heart rhythm is currently normal sinus rhythm at about 60 beats per minute, but he does frequently transition in and out of atrial fibrillation with rapid ventricular rate and aberrant conduction. Amiodarone is currently infusing at 1 mg/m. Lidocaine infusing at 1 mg/m. Normal saline is infusing at 50 ML's per hour. Patient is relatively asymptomatic during these events. Patient denies any chest pain, heart palpitations, lightheadedness, or shortness of breath. There is a PEG tube infusing Jevity tube feeds at 39 ML's per hour. Chest x-ray on arrival showed basilar atelectasis or early infiltrate. Denies infectious symptoms such as fever, cough, shortness of breath, chest pain. Most recent CBC from July 19rst has a WBC count of 13.6, hemoglobin 15.2, hematocrit 48, platelet 168. Most recent BMP from last night shows a sodium 140, potassium 3.4, chloride 101, serum bicarb 28, BUN 9, creatinine 0.71, glucose 175. Lactic acid was mildly elevated at 2.6. Magnesium was 6, patient did receive 4 g of magnesium during the rapid response. Troponin 0.014. Patient will be monitored in the intensive care unit. On today's evaluation of 07/22/2022, patient is free of any chest pain. The cardiac rhythm is currently sinus. He is on 4 L of oxygen by nasal cannula. History of any chest pain. He is off antiarrhythmic and is currently off amiodarone and off lidocaine. The patient's is otherwise doing well. He is awake and alert. Cardiac catheterization was offered to him regarding his r ecent V. tach. The patient has declined the procedure. His sodium levels of 141, potassium levels at 3.6 and his been replaced. BUN is at 10 with a creatinine of 0.55. UA is negative. Is the loose gauze 11.2 with a hemoglobin 13.0 and a platelet count of 126. The patient is currently on oral amiodarone 400 mg twice a day. He is off the IV heparin. Rest of the medications remain unchanged. No seizure activity has been noted. EEG was done yesterday and it showed normal findings. Neurologic consultation was also obtained and their input is also appreciated. Echocardiogram was also completed on 07/21/2023 indicating ejection fraction of 20-25%, consistent with severe cardiomyopathy. No evidence of any significant valvular abnormalities. Objective - Vital Signs Vital signs: Vital Signs Temp 98.1 F 07/22/23 08:00 Pulse 65 07/22/23 08:44 Resp 28 H 07/22/23 08:00 BP 113/68 07/22/23 08:00 Pulse Ox 95 07/22/23 08:00 FiO2 Intake & Output 07/21/23 07/22/23 07/22/23 18:59 06:59 18:59 Intake Total 1268 649 155 Output Total 800 500 0 Balance 468 149 155 Weight 92 kg 93.7 kg Intake: IV 600 600 100 Sodium Chloride 0.9% 1, 600 600 100 000 ml @ 50 mls/hr IV . Q20H [facility] Rx#:[id number] Tube Feeding 518 49 55 Other 150 Output: Urine 800 500 0 Other: Voiding Method External Catheter # Voids 0 - Exam GENERAL EXAM: Alert, 63-year-old white male, comfortable in no apparent d istress. He is on 4 liters /min HEAD: Normocephalic and atraumatic EYES: Normal reaction of pupils, equal size. NOSE: Clear with pink turbinates. THROAT: No erythema or exudates. Voice is hoarse NECK: No masses, no JVD. CHEST: No chest wall deformity. LUNGS: Equal air entry with no crackles, wheeze, rhonchi or dullness. On 4 L/m nasal cannula. No conversational dyspnea or accessory muscle use.. CVS: S1 and S2 normal with soft systolic grade 1 murmur, regular rhythm. No other extra heart sounds ABDOMEN: No hepatosplenomegaly, active bowel sounds, no guarding or rigidity. PEG tube in place SPINE: No scoliosis or deformity SKIN: No rashes CENTRAL NERVOUS SYSTEM: Right sided hemiparesis, right arm and right leg grade 4/5 strength. Left upper and left lower extremities grade 5/5 strength. No other focal deficits EXTREMITIES: There is no peripheral edema, clubbing, or cyanosis. Peripheral pulses are intact. - Labs CBC & Chem 7: 07/22/23 04:07 07/22/23 04:07 Labs: Abnormal Lab Results - Last 24 Hours (Table) 07/22/23 07/22/23 07/22/23 Range/Units 04:07 04:07 06:37 WBC 11.2 H (3.8-10.6) k/uL RBC 3.91 L (4.30-5.90) m/uL Plt Count 126 L (150-450) k/uL Neutrophils # 8.8 H (1.3-7.7) k/uL Carbon Dioxide 34 H (22-30) mmol/L Creatinine 0.55 L (0.66-1.25) mg/dL Glucose 157 H (74-99) mg/dL POC Glucose (mg/dL) 148 H (70-110) mg/dL Alkaline Phosphatase 129 H (38-126) U/L Total Protein 5.2 L (6.3-8.2) g/dL Albumin 2.9 L (3.5-5.0) g/dL Assessment and Plan Assessment: Unstable wide complex tachyarrhythmia, possibly ventricular tachycardia, terminated with 2 doses of 150 mg IV amiodarone, 100 mg of IV lidocaine, 4 g of IV magnesium sulfate. Patient was transferred to the intensive care unit for closer monitoring. over the past 24 hours, the patient has not had any further cardiac arrhythmias. Patient is currently off amiodarone drip and the patient is currently off lidocaine. The patient is currently on oral amiodarone 400 mg by mouth twice a day. Cardiac rhythm is sinus. The patient is also on Lopressor 25 mg by mouth twice a day. Severe cardiomyopathy with impaired LV function and ejection fraction of 20-25% Suspected breakthrough seizure, terminated with 1 mg of Ativan IV push. Home antiepileptic medications have been resumed. Patient does have history of seiz ure disorder. Hypokalemia, being replaced per protocol, replaced Hypermagnesemia Dysphagia, status post operative day #4 following PEG tube placement. During the EGD no obvious esophageal strictures or obstructions were noted. History of coronary artery disease, with prior [place] and stents Benign essential hypertension Hyperlipidemia History of CVA/TIA Chronic obstructive pulmonary disease, stable. Normally maintained on Trelegy Ellipta inhaler and DuoNeb inhalations on an outpatient basis. Chronic hypoxemic respiratory failure, currently on 3 L/m nasal cannula, which is what he wears at home Obstructive sleep apnea, noncompliant with CPAP Systemic lupus erythematous, lupus nephritis, maintained on CellCept Chronic ongoing tobacco dependence, reportedly smokes up to 1-1/2 packs per day Plan: Cardiac catheterization was offered and the patient declined. He may need a c ardiac catheterization and possible AICD. His current CVP cardiomyopathy with an EF around 20-25%. Cardiology lengthy discussion with him. The patient showed no interest in undergoing further workup. Pulmonary status is stable and the patient remains somewhat between 3 and 4 L of oxygen nasal cannula The patient is currently on oral amiodarone The patient is currently on metoprolol The patient has no seizure activity The patient is covered with antiepileptics The patient is undergoing enteral feeding for insurance support through his PEG tube Patient is on his routine outpatient medication Prognosis poor based on the above-mentioned comorbidities. Will need an ENT evaluation to inspect upper airway regarding his chronic dysphagia, with a possibility of malignancy obstructing his upper airway. No stridor. No signs of any acute respiratory distress at this point in time. The patient will likely leave AMA There is also a concern of his swallow as the patient has been having chronic dysphagia. The patient had a CAT scan of the neck that showed no airway within the subglottic area. He has no stridor. However based on his ongoing dysphasia, he was given a PEG tube few days back and the patient is currently receiving enteral feeding for nutritional support and currently is receiving Jevity at the rate of 55 mL an hour. There is a concern of upper airway involvement due to the noted obstruction. He has chronic hoarseness and he has undergone previous cervical spine surgery with fusion. He would need a inspection of an upper airway at the later stage evaluate for airway patency. Will monitor his cardiac rhythm. Overall respiratory status is stable and is currently on oxygen at 3-4 L which is baseline for him. prednisone at a dose of 10 mg by mouth daily. Continue CellCept. Continue valproic acid 250 mg per PEG tube twice a day. Evalaution was done in >30 min Time with Patient: Greater than 30
[2023-07-22] MEDS: HEPARIN SODIUM,PORCINE 5,000 UNIT/ML 1 ML VIAL SQ SCH (09:39)
[2023-07-22] MEDS: PREGABALIN 100 MG CAP PO SCH ×3 (09:40→21:13)
[2023-07-22] MEDS: METOPROLOL TARTRATE 25 MG TAB PO SCH ×2 (09:40→21:13)
[2023-07-22] MEDS: FAMOTIDINE 20 MG TAB PO SCH (09:40)
[2023-07-22] MEDS: FUROSEMIDE 20 MG TAB PO SCH ×2 (09:40→16:18)
[2023-07-22] MEDS: allopurinoL 100 MG TAB PO SCH (09:40)
[2023-07-22] MEDS: PARoxetine 20 MG TAB PO SCH (09:40)
[2023-07-22] MEDS: AMIODARONE 200 MG TAB PO SCH ×2 (09:40→21:13)
[2023-07-22] MEDS: ATORVASTATIN 20 MG TAB PO SCH (09:40)
[2023-07-22] MEDS: predniSONE 10 MG TAB PO SCH (09:40)
[2023-07-22] MEDS: VALPROIC ACID ORAL SOLN 250 MG/5 ML CUP PEG/G-TUBE SCH ×2 (09:41→21:12)
[2023-07-22] MEDS: MONTELUKAST 10 MG TAB PO SCH (09:43)
[2023-07-22] MEDS: LACOSAMIDE 50 MG TABLET PO SCH ×2 (09:45→21:12)
[2023-07-22] MEDS ORDERED: HEPARIN SODIUM 1,000 UN/ML (10ML VL) IV ONE (10:34)
[2023-07-22] MEDS: PHENYTOIN ORAL SUSP 100 MG/4 ML CUP PO SCH ×2 (10:41→21:29)
--- NOTE | 2023-07-22 10:48 | P.PN ---
Subjective Patient is seen for follow-up for chronic kidney disease secondary to lupus nephritis. Patient developed V. tach/cardiac arrest on 07/20/2023. He did not need to be intubated. Patient was transferred to ICU. Status post amiodarone drip and lidocaine drip. Patient feels well. He is tolerating oral intake. CellCept is being crushed and given down the PEG tube. No significant urinary symptoms. Scheduled for cardiac cath in a.m. Objective - Vital Signs Vital signs: Vital Signs Temp 98.1 F 07/22/23 08:00 Pulse 65 07/22/23 08:44 Resp 28 H 07/22/23 08:00 BP 113/68 07/22/23 08:00 Pulse Ox 95 07/22/23 08:00 FiO2 Intake & Output 07/21/23 07/22/23 07/22/23 18:59 06:59 18:59 Intake Total 1268 649 155 Output Total 800 500 0 Balance 468 149 155 Weight 92 kg 93.7 kg Intake: IV 600 600 100 Sodium Chloride 0.9% 1, 600 600 100 000 ml @ 50 mls/hr IV . Q20H [facility] Rx#:[id number] Tube Feeding 518 49 55 Other 150 Output: Urine 800 500 0 Other: Voiding Method External Catheter # Voids 0 - Exam patient is comfortable awake not in any acute distress Examination of the heart S1 and S2 Examination the lungs bilateral breath sounds are heard Abdomen is soft nontender PEG tube in place Examination lower extremities shows no significant edema - Labs CBC & Chem 7: 07/22/23 04:07 07/22/23 04:07 Labs: Abnormal Lab Results - Last 24 Hours (Table) 07/22/23 07/22/23 07/22/23 Range/Units 04:07 04:07 06:37 WBC 11.2 H (3.8-10.6) k/uL RBC 3.91 L (4.30-5.90) m/uL Plt Count 126 L (150-450) k/uL Neutrophils # 8.8 H (1.3-7.7) k/uL Carbon Dioxide 34 H (22-30) mmol/L Creatinine 0.55 L (0.66-1.25) mg/dL Glucose 157 H (74-99) mg/dL POC Glucose (mg/dL) 148 H (70-110) mg/dL Alkaline Phosphatase 129 H (38-126) U/L Total Protein 5.2 L (6.3-8.2) g/dL Albumin 2.9 L (3.5-5.0) g/dL Assessment and Plan Assessment: 1. History of lupus nephritis currently maintained on CellCept. Serum creatinine at 0.5 mg/dL. UA shows no evidence of proteinuria. It is completely benign 2. Severe aspiration status post PEG tube placement 3. Soft tissue thickening noted in the glottic and supraglottic airway on computed tomography scan. Recommend follow-up with the ENT 4. Status post cardiac arrest/V. tach, status post amiodarone drip and lidocaine drip. Being followed by cardiology. Plan: Continue CellCept Agree with cardiac catheterization. Patient is reassured that his renal function is normal. Follow-up as outpatient post discharge.
--- NOTE | 2023-07-22 11:01 | P.PN ---
Subjective Progress Note Date: 07/22/23 This is a 63-year-old male well known to me. He has chronic respiratory failure. He continues to smoke. He has a history of lupus and Freytes. Over the past several months he has complaints of coughing hoarseness in trouble swallowing. We have been unable to schedule him with an ear nose and throat doctor. A barium swallow test was ordered for evaluation, and he was found to be aspirating. He modified barium swallow testWas ordered and they were unable to not have him aspirate even with honey thick liquids. He came in through the emergency room and is now admitted for peg tube placement so that he may remain NPO as to not continue to develop pneumonia. At this time he has no complaints and is waiting his surgery. 07/19/2023: Patient is postop day 1 PEG tube placement for severe aspiration. EGD failed to show any significant strictures or abnormalities. ENT is unavailable to me bedside procedures at this time. General surgery and signed off as gastric urology perform the PEG tube. Patient's home medications will be restarted. Dietary will recommend feeding for him. He denies any chest pains pressures at this time. He does have ongoing chronic low back pain. Has been receiving Dilaudid for this. He is a known heavy smoker and has a nicotine patch ordered. He has oxygen-dependent COPD along with lupus nephritis and multiple other comorbidities. Currently the patient denies any chest pains or pressures. Just the shortness breath with exertion. 07/20/2023: Patient is reevaluated today. He is postop day #2 of PEG tube placement. He has tube feedings running at this time. Jevity 1.5 at 20 mL an hour with a goal of increasing it by 10 ML's every 8 hours to a goal of 39 miles per hour. 30 mL flush every 4 hours. At this time all his medications and converted to PEG tube feedings with the exception of her CellCept. This may not be crushed. Dr. Shannon and consult it since this was originally for post nephritis. Patient denies any chest pains pressures, as his chronic shortness of breath. Denies any nausea or nausea or vomiting. 07/21/2023 transferred to ICU last night after development of a wide complex tachycardia, appearing like V. tach, accompanied by hypotension, change in mental status and two - three appearing seizure-like activities. Brain CT reported no acute hemorrhage, hydrocephalus or mass effect. Lactic acid last 2.6 around the time of the event, decreased to 1 approximately 4 hours post. Received amiodarone and lidocaine and magnesium, returned into normal sinus rhythm. Magnesium level II.1 prior to the event, level of 6 last night(received magnesium during code) and early this morning decreased to 3. Received Ativan with no further seizure activity. Currently sinus rhythm, fluctuating with some A. fib, maintained on both amiodarone and lidocaine drips. Denies chest pain, palpitations or shortness of breath., Maintaining O2 sats in the 90s on 3 L nasal cannula. Evaluated by ENT with recommendations noted and appreciated, including a suspension microlaryngoscopy under general anesthesia to evaluate his lower larynx and upper airway with the concern of possible malignancy. Troponins 0.014, 0.715, 0.989. Evaluated by cardiology, recommending cardiac catheterization tomorrow. Renal function stable .afebrile, normal WBC .hemoglobin 12.8, platelets 137. Blood sugars controlled .Neurology consult in place Recommendations pending. Patient appears indecisive. 07/22/2023 lidocaine drip discontinued, amiodarone drip transitioned to oral. Remains in sinus rhythm. No further seizure activity. Dilantin level subtherapeutic, 4. Initially scheduled for cardiac catheterization today, res cheduled for tomorrow. Denies any chest pain palpitations or shortness of breath. Tolerating tube feeds at goal with minimal to no residuals. Objective - Vital Signs Vital signs: Vital Signs Temp 98.1 F 07/22/23 08:00 Pulse 65 07/22/23 08:44 Resp 28 H 07/22/23 08:00 BP 113/68 07/22/23 08:00 Pulse Ox 95 07/22/23 08:00 FiO2 Intake & Output 07/21/23 07/22/23 07/22/23 18:59 06:59 18:59 Intake Total 1268 649 155 Output Total 800 500 0 Balance 468 149 155 Weight 92 kg 93.7 kg Intake: IV 600 600 100 Sodium Chloride 0.9% 1, 600 600 100 000 ml @ 50 mls/hr IV . Q20H [facility] Rx#:[id number] Tube Feeding 518 49 55 Other 150 Output: Urine 800 500 0 Other: Voiding Method External Catheter # Voids 0 - Exam - Exam General: Alert and oriented 3, sitting up in chair, no acute distress. Neck: supple,no JVD. Cardiovascular: S1S2 is normal,regular rate and rhythm. Positive systolic murmur. Respiratory: Unlabored, Lungs are coarse but equal bilaterally with no active wheezes rales or crackles at this time. Gastrointestinal: Soft, non-distended, non-tender abdomen without masses or organomegaly noted.No guarding.+BS. PEG tube is clean dry and intact Musculoskeletal: Normal ROM, no tenderness,no pedal edema, no calf tenderness or swelling. Neurological: CN II-XII intact, there are no obvious motor or sensory deficits. Strength and sensation grossly intact. Skin: warm and dry, no rashes noted. - Labs CBC & Chem 7: 07/22/23 04:07 07/22/23 04:07 Labs: Abnormal Lab Results - Last 24 Hours (Table) 07/22/23 07/22/23 07/22/23 Range/Units 04:07 04:07 06:37 WBC 11.2 H (3.8-10.6) k/uL RBC 3.91 L (4.30-5.90) m/uL Plt Count 126 L (150-450) k/uL Neutrophils # 8.8 H (1.3-7.7) k/uL Carbon Dioxide 34 H (22-30) mmol/L Creatinine 0.55 L (0.66-1.25) mg/dL Glucose 157 H (74-99) mg/dL POC Glucose (mg/dL) 148 H (70-110) mg/dL Alkaline Phosphatase 129 H (38-126) U/L Total Protein 5.2 L (6.3-8.2) g/dL Albumin 2.9 L (3.5-5.0) g/dL Assessment and Plan Assessment: (1) Aspiration into airway Current Visit: Yes Status: Acute Code(s): T17.908A - UNSP FB IN RESP TRACT, PART UNSP CAUSING OTH INJURY, INIT SNOMED Code(s): 658323105 (2) Abnormal computed tomography of soft tissue of neck Current Visit: Yes Status: Acute Code(s): R93.89 - ABNORMAL FINDINGS ON DX IMAGING OF OTH BODY STRUCTURES SNOMED Code(s): 349775026 (3) Coronary artery disease Current Visit: Yes Status: Acute Code(s): I25.10 - ATHSCL HEART DISEASE OF [place] CORONARY ARTERY W/O ANG PCTRS SNOMED Code(s): 17712712 (4) Dysphagia Current Visit: Yes Status: Acute Code(s): R13.10 - DYSPHAGIA, UNSPECIFIED SNOMED Code(s): 56750587 (5) History of cervical spinal surgery Current Visit: Yes Status: Acute Code(s): Z98.890 - OTHER SPECIFIED POSTPROCEDURAL STATES SNOMED Code(s): 376727842 (6) COPD (chronic obstructive pulmonary disease) Current Visit: No Status: Acute Code(s): J44.9 - CHRONIC OBSTRUCTIVE PULMONARY DISEASE, UNSPECIFIED SNOMED Code(s): 04854416 (7) Chronic kidney disease Current Visit: No Status: Acute Code(s): N18.9 - CHRONIC KIDNEY DISEASE, UNSPECIFIED SNOMED Code(s): 231812856 (8) Chronic systolic (congestive) heart failure Current Visit: No Status: Acute Code(s): I50.22 - CHRONIC SYSTOLIC (CONGESTIVE) HEART FAILURE SNOMED Code(s): 197172667 (9) HTN (hypertension) Current Visit: No Status: Acute Code(s): I10 - ESSENTIAL (PRIMARY) HYP ERTENSION SNOMED Code(s): 68773036 (10) History of seizure disorder Current Visit: No Status: Acute Code(s): Z86.69 - PERSONAL HISTORY OF DIS OF THE NERVOUS SYS AND SENSE ORGANS SNOMED Code(s): 767761680 (11) Hypoxemia Current Visit: No Status: Acute Code(s): R09.02 - HYPOXEMIA SNOMED Code(s): 809147057 (12) Ischemic heart disease Current Visit: No Status: Acute Code(s): I25.9 - CHRONIC ISCHEMIC HEART DISEASE, UNSPECIFIED SNOMED Code(s): 347139341 (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 Current Visit: No Status: Acute Code(s): M32.14 - GLOMERULAR DISEASE IN SYSTEMIC LUPUS ERYTHEMATOSUS SNOMED Code(s): 51076390 (14) Nicotine addiction Current Visit: No Status: Acute Code(s): F17.200 - NICOTINE DEPENDENCE, UNSPECIFIED, UNCOMPLICATED SNOMED Code(s): 46253142 (15) Type 2 diabetes mellitus without complications Current Visit: No Status: Acute Code(s): E11.9 - TYPE 2 DIABETES MELLITUS WITHOUT COMPLICATIONS SNOMED Code(s): 545356368 (16) S/P percutaneous endoscopic gastrostomy (PEG) tube placement Current Visit: Yes Status: Acute Code(s): Z93.1 - GASTROSTOMY STATUS SNOMED Code(s): 431784300 (17) morbid obesity, BMI 30 (18) suspected breakthrough seizures reported possibly related to arrhythmia/V. tach, abnormal electrolytes (19) wide complex tachyarrhythmia, possibly V. tach Plan: Continue on current medication regime ,monitoring and symptomatic treatment. Cardiac catheterization tomorrow, potential AICD. Antiarrhythmics as per cardiology. Patient will require further ENT workup under general anest hesia, can be arranged outpatient-as patient is quite anxious for discharge. Smoking cessation reinforced. Plan: Continue on current medication regime ,monitoring and symptomatic treatment.
[2023-07-22] MEDS: HEPARIN SOD,PORK IN 0.45% NACL 25,000 UNIT in 0.45% NACL 1 250ML.BAG IV SCH (12:28)
[2023-07-22 13:13] LABS: Glucose,Whole Blood 121 mg/dL (70-110)
[2023-07-22 13:20] LABS: INR 0.9 (<1.2); Partial Thromboplastin Time 26.4 sec (22.0-30.0); Prothrombin Time 10.4 sec (10.0-12.5)
--- NOTE | 2023-07-22 13:28 | P.PN ---
Subjective Progress Note Date: 07/22/23 I'll follow up with the patient and no further seizure. Patient feels he is doing well from a neurologic perspective. Current to the nurse that the Dilaudid had to be switched to liquid since the patient cannot take extended release through the PEG tube since that has to be crushed. Objective - Vital Signs Vital signs: Vital Signs Temp 98.4 F 07/22/23 12:00 Pulse 59 L 07/22/23 13:00 Resp 21 07/22/23 13:00 BP 98/67 07/22/23 13:00 Pulse Ox 100 07/22/23 13:00 FiO2 Intake & Output 07/21/23 07/22/23 07/22/23 18:59 06:59 18:59 Intake Total 1268 649 640 Output Total 800 500 600 Balance 468 149 40 Weight 92 kg 93.7 kg 93.7 kg Intake: IV 600 600 300 Sodium Chloride 0.9% 1, 600 600 300 000 ml @ 50 mls/hr IV . Q20H [facility] Rx#:[id number] Tube Feeding 518 49 220 Other 150 120 Output: Urine 800 500 600 Other: Voiding Method External Catheter Urinal # Voids 0 1 - Exam GENERAL: The patient is sitting up in a chair and is not in acute distress. NEUROLOGICAL: Higher mental function: The patient is awake, alert, oriented to self, place and time. Patient is following commands. No aphasia and no neglect. Cranial nerves: The pupils are round, equal and reactive to light and accommodation. Visual hadley are full to confrontation throughout. Extraocular movement is intact no nystagmus is noted. Facial sensation is normal to touch throughout. The facial strength is normal throughout. Hearing is mildly decreased bilaterally to hand rub. Tongue is midline and moved [id number] without any difficulty. No dysarthria is noted. Shoulder shrug is normal bilaterally. Motor: The strength is moving all extremities above gravity. Normal tone and bulk. Cerebellum: Normal finger to nose heel to chin bilaterally. Sensation: Sensation is normal to touch throughout. Reflexes (right/left): 2+ throughout. Plantars are mute bilaterally. Some other workup during his hospital visit consisted of: Magnesium was as high as 6 yesterday and today is 3.0. Calcium is 8.9 Plasma-Lyte acids as vein was 2.6. Before meals ALTs within normal limits Sodium is 140. The length and levels subtherapeutic and level was 4. Her level is between 10- 20. Glucose yesterday was around 158. Today is 153. CT of the head is reported as no acute hemorrhage, hydrocephalus or mass effect. Personally reviewed the CT of the head and there is no acute subacute ischemia. There is no intraparenchymal bleed. There is no mass effect was able to appreciate. Routine EEG is normal. There is no focal slowing, epileptiform discharges or seizure on the EEG. - Labs CBC & Chem 7: 07/22/23 04:07 07/22/23 04:07 Labs: Abnormal Lab Results - Last 24 Hours (Table) 07/22/23 07/22/23 07/22/23 Range/Units 04:07 04:07 06:37 WBC 11.2 H (3.8-10.6) k/uL RBC 3.91 L (4.30-5.90) m/uL Plt Count 126 L (150-450) k/uL Neutrophils # 8.8 H (1.3-7.7) k/uL Carbon Dioxide 34 H (22-30) mmol/L Creatinine 0.55 L (0.66-1.25) mg/dL Glucose 157 H (74-99) mg/dL POC Glucose (mg/dL) 148 H (70-110) mg/dL Alkaline Phosphatase 129 H (38-126) U/L Total Protein 5.2 L (6.3-8.2) g/dL Albumin 2.9 L (3.5-5.0) g/dL 07/22/23 Range/Units 13:12 WBC (3.8-10.6) k/uL RBC (4.30-5.90) m/uL Plt Count (150-450) k/uL Neutrophils # (1.3-7.7) k/uL Carbon Dioxide (22-30) mmol/L Creatinine (0.66-1.25) mg/dL Glucose (74-99) mg/dL POC Glucose (mg/dL) 121 H (70-110) mg/dL Alkaline Phosphatase (38-126) U/L Total Protein (6.3-8.2) g/dL Albumin (3.5-5.0) g/dL Assessment and Plan Assessment: This is a 63-year-old gentleman with history of seizures on Dilantin who had suspected seizure-like activity yesterday by the nursing staff and no further seizures overnight or today. Suspected breakthrough seizure and the patient was given IV Ativan and was resumed on his home dose of Dilantin 200 mg 1 tablet twice a day. His Dilantin level was subtherapeutic and possibly the patient was not getting the Dilantin and had to be switched to liquid. Unsure if patient seizure was provoked due to metabolic derangement or arrhythmia. No further seizure activity. EEG is normal. Hypermagnesemia and currently patient has hypomagnesemia Unstable wide-complex tachycardia arrhythmia with possible ventricular tachycardia Dysphagia status post PEG tube History of seizures History of stroke Benign essential tremor Chronic hypoxic respiratory failure on nasal OBSTRUCTIVE SLEEP APNEA SYSTEMIC LUPUS ARTHRITIS, LUPUS NEPHRITIS ON CELLCEPT CHRONIC ONGOING TOBACCO USE Plan: His extended release Dilantin 200 mg 1 tablet twice a day was changed to liquid since she could not get the extended release to the PEG tube. I started the patient on Vimpat 50 mg twice a day on 07/21/2023. It seems that the patient was tried on Keppra in the past but had behavioral changes will avoid Keppra use Patient had an EEG which was normal. No further seizures. Seizure precautions and seizure pads. Patient is also on Lyrica 200 mg 1 tablet 3 times a day likely for neuropathy but is a week antiepileptic drug. He is also on the home dose of valproic acid 250 mg 1 tablet twice a day which can be used for mood and can be used for antiepileptic. He was notified because of his seizures to avoid driving for 6 month until Z seizure-free, avoid heights, avoid swimming unassisted or using heavy machinery. We'll defer the rest of the medical management to the primary and other specialists Recommend the patient to follow-up with a neurologist as an outpatient within 2- 3 weeks Plan discussed with the patient and his nurse. There is no further neurological workup. We'll sign off. Please reconsult if needed Time with Patient: Less than 30
[2023-07-22] MEDS: SODIUM CHLORIDE 0.9% 1,000 ML IV SCH (16:19)
[2023-07-22 18:29] LABS: Glucose,Whole Blood 105 mg/dL (70-110)
[2023-07-22] MEDS: HEPARIN SODIUM 1,000 UN/ML (10ML VL) IV PRN (19:58)
[2023-07-22] MEDS: AMITRIPTYLINE HCL 25 MG TAB PO SCH (21:13)
[2023-07-22 23:22] LABS: Glucose,Whole Blood 97 mg/dL (70-110)
[2023-07-23 00:56] LABS: African American GFR (CKD) >90 (>60 ml/min/1.73 sqM); Anion Gap 4 mmol/L; Blood Urea Nitrogen 9 mg/dL (9-20); Calcium 8.1 mg/dL (8.4-10.2); Carbon Dioxide 36 mmol/L (22-30); Chloride 99 mmol/L (98-107); Glucose 93 mg/dL (74-99); Magnesium 1.9 mg/dL (1.6-2.3); Non-African American GFR(CKD) >90 (>60 ml/min/1.73 sqM); Potassium 3.3 mmol/L (3.5-5.1); Sodium 139 mmol/L (137-145)
[2023-07-23] MEDS: POTASSIUM CHLORIDE 10 MEQ in WATER FOR INJECTION 1 100ML.BAG IVPB SCH ×4 (01:26→04:35)
[2023-07-23 03:15] LABS: Basophils % (A) 0 %; Eosinophils # (A) 0.2 k/uL (0-0.7); Eosinophils % (A) 2 %; HCT 38.9 % (39.0-53.0); HGB 12.4 gm/dL (13.0-17.5); Lymphocytes # (A) 1.8 k/uL (1.0-4.8); Lymphocytes % (A) 16 %; MCH 32.3 pg (25.0-35.0); MCHC 31.9 g/dL (31.0-37.0); MCV 101.3 fL (80.0-100.0); Macrocytosis Slight; Mean Platelet Volume 9.5; Monocytes # (A) 0.6 k/uL (0-1.0); Monocytes % (A) 5 %; Neutrophils # (A) 8.6 k/uL (1.3-7.7); Neutrophils % (A) 76 %; Platelet Count 108 k/uL (150-450); RBC 3.83 m/uL (4.30-5.90); RDW 13.2 % (11.5-15.5); WBC 11.4 k/uL (3.8-10.6)
[2023-07-23 03:47] LABS: Partial Thromboplastin Time 40.1 sec (22.0-30.0); Prothrombin Time 11.3 sec (10.0-12.5)
[2023-07-23] MEDS: HEPARIN SODIUM 1,000 UN/ML (10ML VL) IV PRN (04:29)
[2023-07-23 04:48] LABS: African American GFR (CKD) >90 (>60 ml/min/1.73 sqM); Anion Gap 7 mmol/L; Blood Urea Nitrogen 10 mg/dL (9-20); Calcium 8.4 mg/dL (8.4-10.2); Carbon Dioxide 29 mmol/L (22-30); Chloride 102 mmol/L (98-107); Glucose 89 mg/dL (74-99); Non-African American GFR(CKD) >90 (>60 ml/min/1.73 sqM); Sodium 138 mmol/L (137-145)
[2023-07-23] MEDS ORDERED: HEPARIN SODIUM,PORCINE (1 ML) 2,500 UNIT in SODIUM CHLORIDE 0.9% 250 ML IRRIGATION PRN (07:00)
[2023-07-23] MEDS ORDERED: HEPARIN SODIUM,PORCINE 10,000 UNIT in SODIUM CHLORIDE 0.9% 1,000 ML IRRIGATION PRN (07:00)
[2023-07-23] MEDS ORDERED: IV FLUID CONTINUATION 1,000 ML IV ONE (07:35)
[2023-07-23] MEDS: LIDOCAINE 1% INJ 10MG/ML (20 ML MDV) SQ ONE ×2 (07:42→07:58)
[2023-07-23] MEDS ORDERED: MIDAZOLAM 2 MG/2 ML VIAL IVP ONE (07:43)
[2023-07-23] MEDS: fentaNYL (PF) 50 MCG/ML 2 ML AMP IVP ONE ×2 (07:43→07:51)
[2023-07-23] MEDS ORDERED: VERAPAMIL SYRINGE (5 MG/10 ML) INTRAARTER ONE (07:44)
[2023-07-23] MEDS: IPRATROPIUM 0.5 MG/2.5 ML NEBU INHALATION SCH ×4 (07:50→20:26)
[2023-07-23] MEDS: SYMBICORT 80-4.5 MCG INHALER INHALATION SCH ×2 (07:50→20:26)
[2023-07-23] MEDS ORDERED: IOPAMIDOL-370 100ML BTL INJ ONE (08:28)
--- NOTE | 2023-07-23 09:25 | P.PN ---
Subjective Progress Note Date: 07/23/23 I am seeing this patient in new consultation today 07/21/2023 after he was kwok sferred to the intensive care unit last night due to an unstable tachyarrhythmia, possibly V. tach. Patient is a 63-year-old white male with past medical history significant for atrial fibrillation, coronary artery disease with prior PCI/stents 7, heart failure, prior CVA/TIA with residual right-sided weakness, hyperlipidemia, hypertension, COPD, chronic oxygen dependence, chronic ongoing tobacco dependence, obstructive sleep apnea noncompliant with CPAP, prior C-spine fusion, seizure disorder, SLE and lupus nephritis, among other things. Patient originally came to the emergency room back on July 17 complaining of difficulty swallowing. He's had trouble swallowing solid and liquid foods. This has been ongoing for the past 5 months, but has worsened over the last week. He denies any odynophagia or hematemesis. Denies weight loss. He did have an EGD on July 18, and a PEG tube was successfully placed. During the procedure, the patient did not have any significant esophageal strictures or obstructions. On admission, a CT of the neck showed soft tissue thickening and indistinctness involving the glottic and supraglottic airway. At the moment of the CT there was no palmira airway at the level of the glottis presumably due to redundant soft tissue at the moment of imaging. Otherwise unremarkable. Postoperatively, the patient was recovering on the general medical floor. Last night, he became tachycardic and hypotensive. An A-team was called. Patient was found to be in a wide complex tachyarrhythmia, possibly ventricular tachycardia. Rhythm was terminated with 2 doses of 150 mg amiodarone, 100 mg of lidocaine, 4 g of magnesium sulfate. Patient is a DO NOT RESUSCITATE. He does not want CPR, defibrillation, or mechanical ventilation. He is okay with medications. There are reports the patient may also have had 2 generalized tonic-clonic seizures. Patient's last reported seizure before this was 3 years ago. Patient denies missing any of his antiepileptic medications despite having difficulty swallowing. Seizure-like activity was terminated with 1 mg of Ativan. Patient was then transferred to intensive care unit. Currently, the patient is sitting up in bed, on 3 L/m nasal cannula, in no acute distress. Blood pressure is normotensive. Heart rhythm is currently normal sinus rhythm at about 60 beats per minute, but he does frequently transition in and out of atrial fibrillation with rapid ventricular rate and aberrant conduction. Amiodarone is currently infusing at 1 mg/m. Lidocaine infusing at 1 mg/m. Normal saline is infusing at 50 ML's per hour. Patient is relatively asymptomatic during these events. Patient denies any chest pain, heart palpitations, lightheadedness, or shortness of breath. There is a PEG tube infusing Jevity tube feeds at 39 ML's per hour. Chest x-ray on arrival showed basilar atelectasis or early infiltrate. Denies infectious symptoms such as fever, cough, shortness of breath, chest pain. Most recent CBC from July 19rst has a WBC count of 13.6, hemoglobin 15.2, hematocrit 48, platelet 168. Most recent BMP from last night shows a sodium 140, potassium 3.4, chloride 101, serum bicarb 28, BUN 9, creatinine 0.71, glucose 175. Lactic acid was mildly elevated at 2.6. Magnesium was 6, patient did receive 4 g of magnesium during the rapid response. Troponin 0.014. Patient will be monitored in the intensive care unit. On today's evaluation of 07/22/2022, patient is free of any chest pain. The cardiac rhythm is currently sinus. He is on 4 L of oxygen by nasal cannula. History of any chest pain. He is off antiarrhythmic and is currently off amiodarone and off lidocaine. The patient's is otherwise doing well. He is awake and alert. Cardiac catheterization was offered to him regarding his r ecent V. tach. The patient has declined the procedure. His sodium levels of 141, potassium levels at 3.6 and his been replaced. BUN is at 10 with a creatinine of 0.55. UA is negative. Is the loose gauze 11.2 with a hemoglobin 13.0 and a platelet count of 126. The patient is currently on oral amiodarone 400 mg twice a day. He is off the IV heparin. Rest of the medications remain unchanged. No seizure activity has been noted. EEG was done yesterday and it showed normal findings. Neurologic consultation was also obtained and their input is also appreciated. Echocardiogram was also completed on 07/21/2023 indicating ejection fraction of 20-25%, consistent with severe cardiomyopathy. No evidence of any significant valvular abnormalities. On 07/23/2023, the patient is status post cardiac catheterization. The patient's history of any chest pain. Cardiac rhythm is sinus. Cardiac catheterization was done. No interventions were done in terms of stenting. The patient is doing well at this point in time. His awake and alert and hemodynamically stable. Awaiting further recommendations from cardiology regarding the possibility of an AICD placement. Meanwhile, the patient is doing well. He is on oxygen at 3 L. His hemodynamically stable. The BUN of 10 with a creatinine of 0.4. Level was 11.4 and hemoglobin is at 12.4. No seizure activity has been noted. As mentioned, has severe cardiac myopathy with an EF of around 20-25%. The patient is currently still in the intensive care unit. The patient's remains on amiodarone 400 mg by mouth twice a day. He is also on metoprolol 25 mg twice a day. Rest of the home medications have been all resumed including his immunosuppression for lupus nephritis and he remains on a combination of CellCept and prednisone. His bronchodilators are still on as the patient is on Symbicort maintenance and DuoNeb updrafts [id number]. He remains on Dilantin. He is also on valproic acid. Objective - Vital Signs Vital signs: Vital Signs Temp 98.5 F 07/23/23 04:00 Pulse 73 07/23/23 07:00 Resp 29 H 07/23/23 07:00 BP 148/81 07/23/23 07:00 Pulse Ox 94 L 07/23/23 07:00 FiO2 Intake & Output 07/22/23 07/23/23 07/23/23 18:59 06:59 18:59 Intake Total 1225 1291.462 400 Output Total 900 520 450 Balance 325 771.462 -50 Weight 93.7 kg 92.5 kg Intake: IV 550 600 400 Sodium Chloride 0.9% 1, 550 600 50 000 ml @ 50 mls/hr IV . Q20H [facility] Rx#:[id number] Intake, IV Titration 586.462 Amount Heparin Sod,Pork in 0.45% 186.462 NaCl 25,000 unit In 0.45 % NaCl 1 250ml.bag @ 10.7 UNITS/KG/HR 10.026 mls/ hr IV .Q24H [facility] Rx#: [id number] Potassium Chloride 10 meq 400 In Water For Injection 1 100ml.bag @ 100 mls/hr IVPB Q1HR [facility] Rx#: [id number] Tube Feeding 495 55 Other 180 50 Output: Urine 900 520 450 Other: Voiding Method Urinal Urinal # Voids 1 1 - Exam GENERAL EXAM: Alert, 63-year-old white male, comfortable in no apparent distress. He is on 4 liters /min HEAD: Normocephalic and atraumatic EYES: Normal reaction of pupils, equal size. NOSE: Clear with pink turbinates. THROAT: No erythema or exudates. Voice is hoarse NECK: No masses, no JVD. CHEST: No chest wall deformity. LUNGS: Equal air entry with no crackles, wheeze, rhonchi or dullness. On 4 L/m nasal cannula. No conversational dyspnea or accessory muscle use.. CVS: S1 and S2 normal with soft systolic grade 1 murmur, regular rhythm. No other extra heart sounds ABDOMEN: No hepatosplenomegaly, active bowel sounds, no guarding or rigidity. PEG tube in place SPINE: No scoliosis or deformity SKIN: No rashes CENTRAL NERVOUS SYSTEM: Right sided hemiparesis, right arm and right leg grade 4/5 strength. Left upper and left lower extremities grade 5/5 strength. No other focal deficits EXTREMITIES: There is no peripheral edema, clubbing, or cyanosis. Peripheral pulses are intact. - Labs CBC & Chem 7: 07/23/23 02:24 07/23/23 06:23 Labs: Abnormal Lab Results - Last 24 Hours (Table) 07/22/23 07/22/23 07/23/23 Range/Units 13:12 18:38 00:18 WBC (3.8-10.6) k/uL RBC (4.30-5.90) m/uL Hgb (13.0-17.5) gm/dL Hct (39.0-53.0) % MCV (80.0-100.0) fL Plt Count (150-450) k/uL Neutrophils # (1.3-7.7) k/uL APTT 33.3 H (22.0-30.0) sec Potassium 3.3 L (3.5-5.1) mmol/L Carbon Dioxide 36 H (22-30) mmol/L Creatinine 0.53 L (0.66-1.25) mg/dL POC Glucose (mg/dL) 121 H (70-110) mg/dL Calcium 8.1 L (8.4-10.2) mg/dL 07/23/23 07/23/23 07/23/23 Range/Units 02:24 02:24 04:15 WBC 11.4 H (3.8-10.6) k/uL RBC 3.83 L (4.30-5.90) m/uL Hgb 12.4 L (13.0-17.5) gm/dL Hct 38.9 L (39.0-53.0) % MCV 101.3 H (80.0-100.0) fL Plt Count 108 L (150-450) k/uL Neutrophils # 8.6 H (1.3-7.7) k/uL APTT 40.1 H (22.0-30.0) sec Potassium (3.5-5.1) mmol/L Carbon Dioxide (22-30) mmol/L Creatinine 0.48 L (0.66-1.25) mg/dL POC Glucose (mg/dL) (70-110) mg/dL Calcium (8.4-10.2) mg/dL Assessment and Plan Assessment: Unstable wide complex tachyarrhythmia, possibly ventricular tachycardia, terminated with 2 doses of 150 mg IV amiodarone, 100 mg of IV lidocaine, 4 g of IV magnesium sulfate. Patient was transferred to the intensive care unit for closer monitoring. over the past 24 hours, the patient has not had any further cardiac arrhythmias. Patient is currently off amiodarone drip and the patient is currently off lidocaine. The patient is currently on oral amiodarone 400 mg by mouth twice a day. Cardiac rhythm is sinus. The patient is also on Lopressor 25 mg by mouth twice a day. The cardiac catheterization showed nonocclusive disease. Awaiting final report. The patient may need an AICD. Awaiting final recommendations from cardiology. CAD and the patient is post cath Severe cardiomyopathy with impaired LV function and ejection fraction of 20-25% Suspected breakthrough seizure, terminated with 1 mg of Ativan IV push. Home antiepileptic medications have been resumed. Patient does have history of seizure disorder. He is currently on a combination of Dilantin and valproic acid. Hypokalemia, being replaced per protocol, replaced Hypermagnesemia Dysphagia, status post operative day #5 following PEG tube placement. During the EGD no obvious esophageal strictures or obstructions were noted. History of coronary artery disease, with prior UT and stents Benign essential hypertension Hyperlipidemia History of CVA/TIA Chronic obstructive pulmonary disease, stable. Normally maintained on Trelegy Ellipta inhaler and DuoNeb inhalations on an outpatient basis. Chronic hypoxemic respiratory failure, currently on 3 L/m nasal cannula, which is what he wears at home Obstructive sleep apnea, noncompliant with CPAP Systemic lupus erythematous, lupus nephritis, maintained on CellCept Chronic ongoing tobacco dependence, reportedly smokes up to 1-1/2 packs per day Plan: Cardiac catheterization done, possible AICD Current cardiac rhythm is sinus and no further ventricular arrhythmias as been noted and the patient remains on a combination of metoprolol and amiodarone Pulmonary status is stable and the patient remains somewhat between 3 and 4 L of oxygen nasal cannula The patient is currently on oral amiodarone The patient is currently on metoprolol The patient has no seizure activity The patient is covered with antiepileptics The patient is undergoing enteral feeding for insurance support through his PEG tube prednisone at a dose of 10 mg by mouth daily. Continue CellCept. Continue valproic acid 250 mg per PEG tube twice a day and Dilantin will follow, the patient will need a visual inspection/endoscopic inspection of the upper airways looking for any anatomic obstruction based on his ongoing dysphagia. This will be done at later stage once is cardiac status is further stabilized and this is made regarding AICD.
[2023-07-23] MEDS ORDERED: RX INFO: IV CONTRAST WAS GIVEN 1 EACH MISC MISCELLANE PRN (09:43)
[2023-07-23] MEDS: PREGABALIN 100 MG CAP PO SCH ×3 (09:52→21:06)
[2023-07-23] MEDS: AMIODARONE 200 MG TAB PO SCH ×2 (09:53→21:06)
[2023-07-23] MEDS: FUROSEMIDE 20 MG TAB PO SCH ×2 (09:53→16:11)
[2023-07-23] MEDS: allopurinoL 100 MG TAB PO SCH (09:54)
[2023-07-23] MEDS: ATORVASTATIN 20 MG TAB PO SCH (09:54)
[2023-07-23] MEDS: MONTELUKAST 10 MG TAB PO SCH (09:54)
[2023-07-23] MEDS: FAMOTIDINE 20 MG TAB PO SCH (09:54)
[2023-07-23] MEDS: PARoxetine 20 MG TAB PO SCH (09:54)
[2023-07-23] MEDS: PHENYTOIN ORAL SUSP 100 MG/4 ML CUP PO SCH ×2 (09:55→21:07)
[2023-07-23] MEDS: predniSONE 10 MG TAB PO SCH (09:55)
[2023-07-23] MEDS: NICOTINE 21MG/24HR PATCH TRANSDERM SCH (09:57)
[2023-07-23] MEDS: VALPROIC ACID ORAL SOLN 250 MG/5 ML CUP PEG/G-TUBE SCH ×2 (09:57→21:07)
[2023-07-23] MEDS: LACOSAMIDE 50 MG TABLET PO SCH ×2 (10:00→21:06)
--- NOTE | 2023-07-23 10:47 | P.PN ---
Subjective Patient is seen for follow-up for chronic kidney disease secondary to lupus nephritis. Patient developed V. tach/cardiac arrest on 07/20/2023. He did not need to be intubated. Patient was transferred to ICU. Status post amiodarone drip and lidocaine drip. Status post cardiac catheterization. Awaiting official report. No stents were placed. Patient has good urine output. Serum creatinine 0.48 Currently maintained on saline at 50 mL an hour. Objective - Vital Signs Vital signs: Vital Signs Temp 98.5 F 07/23/23 04:00 Pulse 65 07/23/23 10:15 Resp 11 L 07/23/23 10:15 BP 118/100 07/23/23 10:15 Pulse Ox 93 L 07/23/23 10:15 FiO2 Intake & Output 07/22/23 07/23/23 07/23/23 18:59 06:59 18:59 Intake Total 1225 1291.462 400 Output Total 900 520 450 Balance 325 771.462 -50 Weight 93.7 kg 92.5 kg Intake: IV 550 600 400 Sodium Chloride 0.9% 1, 550 600 50 000 ml @ 50 mls/hr IV . Q20H [facility] Rx#:[id number] Intake, IV Titration 586.462 Amount Heparin Sod,Pork in 0.45% 186.462 NaCl 25,000 unit In 0.45 % NaCl 1 250ml.bag @ 10.7 UNITS/KG/HR 10.026 mls/ hr IV .Q24H [facility] Rx#: [id number] Potassium Chloride 10 meq 400 In Water For Injection 1 100ml.bag @ 100 mls/hr IVPB Q1HR [facility] Rx#: [id number] Tube Feeding 495 55 Other 180 50 Output: Urine 900 520 450 Other: Voiding Method Urinal Urinal # Voids 1 1 - Exam patient is comfortable awake not in any acute distress Examination of the heart S1 and S2 Examination the lungs bilateral breath sounds are heard Abdomen is soft nontender PEG tube in place Examination lower extremities shows no significant edema - Labs CBC & Chem 7: 07/23/23 02:24 07/23/23 06:23 Labs: Abnormal Lab Results - Last 24 Hours (Table) 07/22/23 07/22/23 07/23/23 Range/Units 13:12 18:38 00:18 WBC (3.8-10.6) k/uL RBC (4.30-5.90) m/uL Hgb (13.0-17.5) gm/dL Hct (39.0-53.0) % MCV (80.0-100.0) fL Plt Count (150-450) k/uL Neutrophils # (1.3-7.7) k/uL APTT 33.3 H (22.0-30.0) sec Potassium 3.3 L (3.5-5.1) mmol/L Carbon Dioxide 36 H (22-30) mmol/L Creatinine 0.53 L (0.66-1.25) mg/dL POC Glucose (mg/dL) 121 H (70-110) mg/dL Calcium 8.1 L (8.4-10.2) mg/dL 07/23/23 07/23/23 07/23/23 Range/Units 02:24 02:24 04:15 WBC 11.4 H (3.8-10.6) k/uL RBC 3.83 L (4.30-5.90) m/uL Hgb 12.4 L (13.0-17.5) gm/dL Hct 38.9 L (39.0-53.0) % MCV 101.3 H (80.0-100.0) fL Plt Count 108 L (150-450) k/uL Neutrophils # 8.6 H (1.3-7.7) k/uL APTT 40.1 H (22.0-30.0) sec Potassium (3.5-5.1) mmol/L Carbon Dioxide (22-30) mmol/L Creatinine 0.48 L (0.66-1.25) mg/dL POC Glucose (mg/dL) (70-110) mg/dL Calcium (8.4-10.2) mg/dL Assessment and Plan Assessment: 1. History of lupus nephritis currently maintained on CellCept. Serum creat inine at 0.5 mg/dL. UA shows no evidence of proteinuria. It is completely benign 2. Severe aspiration status post PEG tube placement 3. Soft tissue thickening noted in the glottic and supraglottic airway on computed tomography scan. Recommend follow-up with the ENT 4. Status post cardiac arrest/V. tach, status post amiodarone drip and lidocaine drip. Being followed by cardiology. Status post cardiac cath this morning with no stent placement. Details not available Plan: Continue CellCept DC IV fluids later today. Follow-up as outpatient post discharge.
[2023-07-23] MEDS: IPRATROPIUM-ALBUTEROL 3 ML NEB INHALATION PRN ×3 (11:11→20:26)
[2023-07-23 12:11] LABS: Glucose,Whole Blood 135 mg/dL (70-110)
[2023-07-23] MEDS: METOPROLOL TARTRATE 25 MG TAB PO SCH ×2 (12:40→21:06)
[2023-07-23] MEDS: HEPARIN SOD,PORK IN 0.45% NACL 25,000 UNIT in 0.45% NACL 1 250ML.BAG IV SCH (12:42)
[2023-07-23] MEDS: SODIUM CHLORIDE 0.9% 1,000 ML IV SCH (12:43)
--- NOTE | 2023-07-23 12:44 | P.PN ---
Subjective History of present illness: Cardiology was paged on urgent bases at patient was noticed to be in Tachycardic rhythm and seziure which was not getting controlled. A team could not determine what was the rhythm and was not responding to adenosine. Patient was no code with DNI and no compressions and shocking orders. On bedside evaluation patient was noticed to be in Vtac HR 200. Patient got 150mg amiodarone x 2 which broke the Vtach. He was intermittently going in Vtach for which we gave 4 gm Mgso4 and 100 mg lidocaine, After this patient stabilized. During the code, patient was loosing pulse intermittently but being no chest compressions order, no chest compressions were performed. Patient was somnolent but arousable after ROSC ECG after ROSC showed NSR with lateral ST depressions and frequent PVCs, monomorphic. Labs from yesterday showed Hb 15, normal field services analyst 0.7, and WNL electrolytes Patient was admitted on 07/17/23. 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 07/21 Patient seen and examined. Denies any chest pain or pressure. Troponins mildly elevated. No further VT. No seizure like activity. Admits has had a number of cardiac arrests in the past. Has been recommended to undergo AICD placement in the past. Echo shows EF decreased to 20-25%. Wanting to go home and long discussion regarding need to stay. 07/22 Patient seen and examined. Attempted scheduling of heart catheterization today however appears due to logistics likely will not be done until tomorrow. He was transitioned from IV amiodarone to oral amiodarone. He denies any chest pain or pressure. He is fixated that he can prevent similar episodes by taking nitroglycerin at home. 07/23 Patient seen and examined. Patient underwent diagnostic heart catheterization which showed no obstructive disease, mild to moderate disease. He has had intermittent bradycardia with heart rates in the mid 50s on the metoprolol as well as amiodarone. Discussed case with electrophysiology recommending AICD placement for sustained ventricular tachycardia, cardiomyopathy. PHYSICAL EXAMINATION Vital signs reviewed. Lungs: Poor inspiratory effort, mild crackles audible. Heart: Regular rate and rhythm, S1-S2, no S3, no murmur or rub. Abdomen: Soft nontender, Extremities: 1+ peripheral edema Neuro: Patient is alert ASSESSMENT Sustained ventricular tachycardia Cardiac arrest status post return of spontaneous circulation DNR/DNI Lupus Nephritis Aspiration COPD SMoker CAD with history of prior PCI NSTEMI Cardiomyopathy EF 20-25% PLAN Continue with oral amiodarone. There was previous concern regarding bradycardia and may also have some component of tachybradycardia syndrome, sick sinus syndrome however needs beta himanshu and Amiodarone for his VT. No significant coronary artery disease to explain his ventricular tachycardia Discussed case with electrophysiology with recommendations for AICD to be placed this admission, likely in the next 24-48 hours. Objective - Vital Signs Vital signs: Vital Signs Temp 98.5 F 07/23/23 04:00 Pulse 64 07/23/23 12:00 Resp 29 H 07/23/23 12:00 BP 124/68 07/23/23 12:00 Pulse Ox 90 L 07/23/23 12:00 FiO2 Intake & Output 07/22/23 07/23/23 07/23/23 18:59 06:59 18:59 Intake Total 1225 1291.462 400 Output Total 900 520 450 Balance 325 771.462 -50 Weight 93.7 kg 92.5 kg 92.5 kg Intake: IV 550 600 400 Sodium Chloride 0.9% 1, 550 600 50 000 ml @ 50 mls/hr IV . Q20H [facility] Rx#:[id number] Intake, IV Titration 586.462 Amount Heparin Sod,Pork in 0.45% 186.462 NaCl 25,000 unit In 0.45 % NaCl 1 250ml.bag @ 10.7 UNITS/KG/HR 10.026 mls/ hr IV .Q24H [facility] Rx#: [id number] Potassium Chloride 10 meq 400 In Water For Injection 1 100ml.bag @ 100 mls/hr IVPB Q1HR [facility] Rx#: [id number] Tube Feeding 495 55 Other 180 50 Output: Urine 900 520 450 Other: Voiding Method Urinal Urinal # Voids 1 1 - Labs CBC & Chem 7: 07/23/23 02:24 07/23/23 06:23 Labs: Abnormal Lab Results - Last 24 Hours (Table) 07/22/23 07/22/23 07/23/23 Range/Units 13:12 18:38 00:18 WBC (3.8-10.6) k/uL RBC (4.30-5.90) m/uL Hgb (13.0-17.5) gm/dL Hct (39.0-53.0) % MCV (80.0-100.0) fL Plt Count (150-450) k/uL Neutrophils # (1.3-7.7) k/uL APTT 33.3 H (22.0-30.0) sec Potassium 3.3 L (3.5-5.1) mmol/L Carbon Dioxide 36 H (22-30) mmol/L Creatinine 0.53 L (0.66-1.25) mg/dL POC Glucose (mg/dL) 121 H (70-110) mg/dL Calcium 8.1 L (8.4-10.2) mg/dL 07/23/23 07/23/23 07/23/23 Range/Units 02:24 02:24 04:15 WBC 11.4 H (3.8-10.6) k/uL RBC 3.83 L (4.30-5.90) m/uL Hgb 12.4 L (13.0-17.5) gm/dL Hct 38.9 L (39.0-53.0) % MCV 101.3 H (80.0-100.0) fL Plt Count 108 L (150-450) k/uL Neutrophils # 8.6 H (1.3-7.7) k/uL APTT 40.1 H (22.0-30.0) sec Potassium (3.5-5.1) mmol/L Carbon Dioxide (22-30) mmol/L Creatinine 0.48 L (0.66-1.25) mg/dL POC Glucose (mg/dL) (70-110) mg/dL Calcium (8.4-10.2) mg/dL 07/23/23 Range/Units 12:10 WBC (3.8-10.6) k/uL RBC (4.30-5.90) m/uL Hgb (13.0-17.5) gm/dL Hct (39.0-53.0) % MCV (80.0-100.0) fL Plt Count (150-450) k/uL Neutrophils # (1.3-7.7) k/uL APTT (22.0-30.0) sec Potassium (3.5-5.1) mmol/L Carbon Dioxide (22-30) mmol/L Creatinine (0.66-1.25) mg/dL POC Glucose (mg/dL) 135 H (70-110) mg/dL Calcium (8.4-10.2) mg/dL
--- NOTE | 2023-07-23 12:56 | P.PN ---
Subjective Progress Note Date: 07/23/23 This is a 63-year-old male well known to me. He has chronic respiratory failure. He continues to smoke. He has a history of lupus and Freytes. Over the past several months he has complaints of coughing hoarseness in trouble swallowing. We have been unable to schedule him with an ear nose and throat doctor. A barium swallow test was ordered for evaluation, and he was found to be aspirating. He modified barium swallow testWas ordered and they were unable to not have him aspirate even with honey thick liquids. He came in through the emergency room and is now admitted for peg tube placement so that he may remain NPO as to not continue to develop pneumonia. At this time he has no complaints and is waiting his surgery. 07/19/2023: Patient is postop day 1 PEG tube placement for severe aspiration. EGD failed to show any significant strictures or abnormalities. ENT is unavailable to me bedside procedures at this time. General surgery and signed off as gastric urology perform the PEG tube. Patient's home medications will be restarted. Dietary will recommend feeding for him. He denies any chest pains pressures at this time. He does have ongoing chronic low back pain. Has been receiving Dilaudid for this. He is a known heavy smoker and has a nicotine patch ordered. He has oxygen-dependent COPD along with lupus nephritis and multiple other comorbidities. Currently the patient denies any chest pains or pressures. Just the shortness breath with exertion. 07/20/2023: Patient is reevaluated today. He is postop day #2 of PEG tube placement. He has tube feedings running at this time. Jevity 1.5 at 20 mL an hour with a goal of increasing it by 10 ML's every 8 hours to a goal of 39 miles per hour. 30 mL flush every 4 hours. At this time all his medications and converted to PEG tube feedings with the exception of her CellCept. This may not be crushed. Dr. Shannon and consult it since this was originally for post nephritis. Patient denies any chest pains pressures, as his chronic shortness of breath. Denies any nausea or nausea or vomiting. 07/21/2023 transferred to ICU last night after development of a wide complex tachycardia, appearing like V. tach, accompanied by hypotension, change in mental status and two - three appearing seizure-like activities. Brain CT reported no acute hemorrhage, hydrocephalus or mass effect. Lactic acid last 2.6 around the time of the event, decreased to 1 approximately 4 hours post. Received amiodarone and lidocaine and magnesium, returned into normal sinus rhythm. Magnesium level II.1 prior to the event, level of 6 last night(received magnesium during code) and early this morning decreased to 3. Received Ativan with no further seizure activity. Currently sinus rhythm, fluctuating with some A. fib, maintained on both amiodarone and lidocaine drips. Denies chest pain, palpitations or shortness of breath., Maintaining O2 sats in the 90s on 3 L nasal cannula. Evaluated by ENT with recommendations noted and appreciated, including a suspension microlaryngoscopy under general anesthesia to evaluate his lower larynx and upper airway with the concern of possible malignancy. Troponins 0.014, 0.715, 0.989. Evaluated by cardiology, recommending cardiac catheterization tomorrow. Renal function stable .afebrile, normal WBC .hemoglobin 12.8, platelets 137. Blood sugars controlled .Neurology consult in place Recommendations pending. Patient appears indecisive. 07/22/2023 lidocaine drip discontinued, amiodarone drip transitioned to oral. Remains in sinus rhythm. No further seizure activity. Dilantin level subtherapeutic, 4. Initially scheduled for cardiac catheterization today, res cheduled for tomorrow. Denies any chest pain palpitations or shortness of breath. Tolerating tube feeds at goal with minimal to no residuals. 07/23/2023 status post cardiac catheterization, reporting no obstructive disease, mild to moderate disease, no intervention. Cardiology/toe puller recommending AICD placement for sustained ventricular tachycardia, cardiomyopathy, this admission. Objective - Vital Signs Vital signs: Vital Signs Temp 98.5 F 07/23/23 04:00 Pulse 65 07/23/23 10:15 Resp 11 L 07/23/23 10:15 BP 118/100 07/23/23 10:15 Pulse Ox 93 L 07/23/23 10:15 FiO2 Intake & Output 07/22/23 07/23/23 07/23/23 18:59 06:59 18:59 Intake Total 1225 1291.462 400 Output Total 900 520 450 Balance 325 771.462 -50 Weight 93.7 kg 92.5 kg Intake: IV 550 600 400 Sodium Chloride 0.9% 1, 550 600 50 000 ml @ 50 mls/hr IV . Q20H [facility] Rx#:[id number] Intake, IV Titration 586.462 Amount Heparin Sod,Pork in 0.45% 186.462 NaCl 25,000 unit In 0.45 % NaCl 1 250ml.bag @ 10.7 UNITS/KG/HR 10.026 mls/ hr IV .Q24H [facility] Rx#: [id number] Potassium Chloride 10 meq 400 In Water For Injection 1 100ml.bag @ 100 mls/hr IVPB Q1HR [facility] Rx#: [id number] Tube Feeding 495 55 Other 180 50 Output: Urine 900 520 450 Other: Voiding Method Urinal Urinal # Voids 1 1 - Exam - Exam General: Alert and oriented 3, laying in bed, no acute distress. Neck: supple,no JVD. Cardiovascular: S1S2 is normal,regular rate and rhythm. Respiratory: Unlabored, Lungs are coarse but equal bilaterally with no active wheezes rales or crackles at this time. Gastrointestinal: Soft, non-distended, non-tender abdomen , no guarding,+BS. PEG tube is clean dry and intact Musculoskeletal: Normal ROM, no tenderness,no pedal edema, no calf tenderness or swelling. Neurological: CN II-XII intact, no focal deficits Skin: warm and dry, no rashes noted. - Labs CBC & Chem 7: 07/23/23 02:24 07/23/23 06:23 Labs: Abnormal Lab Results - Last 24 Hours (Table) 07/22/23 07/22/23 07/23/23 Range/Units 13:12 18:38 00:18 WBC (3.8-10.6) k/uL RBC (4.30-5.90) m/uL Hgb (13.0-17.5) gm/dL Hct (39.0-53.0) % MCV (80.0-100.0) fL Plt Count (150-450) k/uL Neutrophils # (1.3-7.7) k/uL APTT 33.3 H (22.0-30.0) sec Potassium 3.3 L (3.5-5.1) mmol/L Carbon Dioxide 36 H (22-30) mmol/L Creatinine 0.53 L (0.66-1.25) mg/dL POC Glucose (mg/dL) 121 H (70-110) mg/dL Calcium 8.1 L (8.4-10.2) mg/dL 07/23/23 07/23/23 07/23/23 Range/Units 02:24 02:24 04:15 WBC 11.4 H (3.8-10.6) k/uL RBC 3.83 L (4.30-5.90) m/uL Hgb 12.4 L (13.0-17.5) gm/dL Hct 38.9 L (39.0-53.0) % MCV 101.3 H (80.0-100.0) fL Plt Count 108 L (150-450) k/uL Neutrophils # 8.6 H (1.3-7.7) k/uL APTT 40.1 H (22.0-30.0) sec Potassium (3.5-5.1) mmol/L Carbon Dioxide (22-30) mmol/L Creatinine 0.48 L (0.66-1.25) mg/dL POC Glucose (mg/dL) (70-110) mg/dL Calcium (8.4-10.2) mg/dL Assessment and Plan Assessment: (1) Aspiration into airway Current Visit: Yes Status: Acute Code(s): T17.908A - UNSP FB IN RESP TRACT, PART UNSP CAUSING OTH INJURY, INIT SNOMED Code(s): 581438002 (2) Abnormal computed tomography of soft tissue of neck Current Visit: Yes Status: Acute Code(s): R93.89 - ABNORMAL FINDINGS ON DX IMAGING OF OTH BODY STRUCTURES SNOMED Code(s): 724053949 (3) Coronary artery disease Current Visit: Yes Status: Acute Code(s): I25.10 - ATHSCL HEART DISEASE OF [place] CORONARY ARTERY W/O ANG PCTRS SNOMED Code(s): 59602021 (4) Dysphagia Current Visit: Yes Status: Acute Code(s): R13.10 - DYSPHAGIA, UNSPECIFIED SNOMED Code(s): 11512961 (5) History of cervical spinal surgery Current Visit: Yes Status: Acute Code(s): Z98.890 - OTHER SPECIFIED POSTPROCEDURAL STATES SNOMED Code(s): 166000476 (6) COPD (chronic obstructive pulmonary disease) Current Visit: No Status: Acute Code(s): J44.9 - CHRONIC OBSTRUCTIVE PULMONARY DISEASE, UNSPECIFIED SNOMED Code(s): 09405162 (7) Chronic kidney disease Current Visit: No Status: Acute Code(s): N18.9 - CHRONIC KIDNEY DISEASE, UNSPECIFIED SNOMED Code(s): 311985689 (8) Chronic systolic (congestive) heart failure Current Visit: No Status: Acute Code(s): I50.22 - CHRONIC SYSTOLIC (CO NGESTIVE) HEART FAILURE SNOMED Code(s): 502716832 (9) HTN (hypertension) Current Visit: No Status: Acute Code(s): I10 - ESSENTIAL (PRIMARY) HYPERTENSION SNOMED Code(s): 11726167 (10) History of seizure disorder Current Visit: No Status: Acute Code(s): Z86.69 - PERSONAL HISTORY OF DIS OF THE NERVOUS SYS AND SENSE ORGANS SNOMED Code(s): 665429643 (11) Hypoxemia Current Visit: No Status: Acute Code(s): R09.02 - HYPOXEMIA SNOMED Code(s): 126680865 (12) Ischemic heart disease Current Visit: No Status: Acute Code(s): I25.9 - CHRONIC ISCHEMIC HEART DISEASE, UNSPECIFIED SNOMED Code(s): 791274367 (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 Current Visit: No Status: Acute Code(s): M32.14 - GLOMERULAR DISEASE IN SYSTEMIC LUPUS ERYTHEMATOSUS SNOMED Code(s): 23077402 (14) Nicotine addiction Current Visit: No Status: Acute Code(s): F17.200 - NICOTINE DEPENDENCE, UNSPECIFIED, UNCOMPLICATED SNOMED Code(s): 78750747 (15) Type 2 diabetes mellitus without complications Current Visit: No Status: Acute Code(s): E11.9 - TYPE 2 DIABETES MELLITUS WITHOUT COMPLICATIONS SNOMED Code(s): 970675370 (16) S/P percutaneous endoscopic gastrostomy (PEG) tube placement Current Visit: Yes Status: Acute Code(s): Z93.1 - GASTROSTOMY STATUS SNOMED Code(s): 565518162 (17) morbid obesity, BMI 30 (18) suspected breakthrough seizures reported possibly related to arrhythmia/V. tach, abnormal electrolytes (19) Sustained ventricular tachycardia, status post cardiac arrest with return of spontaneous circulation. 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 AICD pending. (20) cardiomyopathy, EF 20-25% Plan: Continue on current medication regime ,monitoring and symptomatic treatment. AICD pending. Antiarrhythmics as per cardiology. Patient will require further ENT workup under general anesthesia, can be arranged outpatient. Smoking cessation reinforced. Plan: Continue on current medication regime ,monitoring and symptomatic treatment.
--- NOTE | 2023-07-23 13:43 | CC ---
CARDIAC CATHETERIZATION REPORT INDICATIONS: Non ST-segment elevation MD. PROCEDURE NOTE: After obtaining informed consent, left heart catheterization and coronary angiogram were performed via the right femoral artery using standard Rossy catheters. The patient tolerated the procedure well without any obvious immediate complications. The patient received moderate conscious sedation, total sedation time was 35 minutes. I initially attempted right radial artery access and was unsuccessful, hence I proceeded with a femoral catheterization. A femoral angiogram was performed at the end of the procedure and decision was made for manual hemostasis. FINDINGS: 1. Hemodynamics: Left ventricular end-diastolic pressure is 24 mm . There is no significant gradient across the aortic valve. 2. Left Ventriculogram: Left ventriculogram is not performed. 3. Angiographic Data: a.Right coronary artery: Right coronary artery appears diffusely diseased, was previously stented and the stent extends from proximal to mid portion. The stent itself is patent. Left main coronary artery appears calcified, but is short, free of stenosis, divides into left anterior descending coronary artery and circumflex coronary artery. Circumflex coronary artery shows mild nonobstructive disease. LAD was previously stented, the stent appears patent. There is mild-to- moderate nonobstructive disease distal to the stent. CONCLUSION: Three-vessel coronary artery disease with patent stents within the LAD and right coronary artery. PLAN: The patient has ischemic cardiomyopathy with severe LV dysfunction. We will continue to treat him with aggressive medical therapy and consult EP regarding AICD. MMODL / IJN: [id number] /
[2023-07-23] MEDS: oxyCODONE-APAP 10-325MG 1 EACH TAB PO PRN ×2 (14:08→21:06)
[2023-07-23] MEDS: AMITRIPTYLINE HCL 25 MG TAB PO SCH (21:07)
[2023-07-24 00:31] LABS: Glucose,Whole Blood 78 mg/dL (70-110)
[2023-07-24 05:43] LABS: Basophils % (A) 0 %; Eosinophils # (A) 0.2 k/uL (0-0.7); Eosinophils % (A) 2 %; HCT 41.2 % (39.0-53.0); Lymphocytes # (A) 1.8 k/uL (1.0-4.8); Lymphocytes % (A) 19 %; MCH 31.6 pg (25.0-35.0); MCHC 31.6 g/dL (31.0-37.0); MCV 100.1 fL (80.0-100.0); Mean Platelet Volume 9.5; Monocytes # (A) 0.5 k/uL (0-1.0); Monocytes % (A) 6 %; Neutrophils # (A) 6.7 k/uL (1.3-7.7); Neutrophils % (A) 71 %; Platelet Count 131 k/uL (150-450); RBC 4.12 m/uL (4.30-5.90); RDW 13.2 % (11.5-15.5); WBC 9.5 k/uL (3.8-10.6)
[2023-07-24 06:06] LABS: African American GFR (CKD) >90 (>60 ml/min/1.73 sqM); Anion Gap 4 mmol/L; Blood Urea Nitrogen 11 mg/dL (9-20); Calcium 8.8 mg/dL (8.4-10.2); Carbon Dioxide 39 mmol/L (22-30); Chloride 98 mmol/L (98-107); Glucose 100 mg/dL (74-99); Non-African American GFR(CKD) >90 (>60 ml/min/1.73 sqM); Potassium 4.5 mmol/L (3.5-5.1); Sodium 141 mmol/L (137-145)
[2023-07-24] MEDS: SODIUM CHLORIDE 0.9% 1,000 ML IV SCH (06:57)
[2023-07-24] MEDS ORDERED: CLINDAMYCIN 600 MG in SODIUM CHLORIDE 0.9% 250 ML IRRIGATION PRN (07:00)
[2023-07-24] MEDS ORDERED: CLINDAMYCIN 900 MG in DEXTROSE 5% IN WATER 50 ML IVPB PRN ×2 (07:00)
--- NOTE | 2023-07-24 07:38 | XR ---
EXAMINATION TYPE: XR chest 2V DATE OF EXAM: 07/23/2023 10:27 PM CLINICAL INDICATION:Male, 63 years old with history of Possible pneumonia; [facility] COMPARISON: Chest radiographs from 07/17/2023 TECHNIQUE: XR chest 2V Frontal and lateral views of the chest. FINDINGS: Lungs/Pleura: Blunting of left costophrenic angle. Right midlung airspace opacities remain however th ey have moved given patient positioning. No evidence of pneumothorax. Blunting of the costophrenic an gles is present. Pulmonary vascularity: Unremarkable. Heart/mediastinum: Cardiomediastinal silhouette is unremarkable. Musculoskeletal: No acute osseous pathology. Other findings: None IMPRESSION: 1. Similar right midlung airspace opacities given positioning. 2. New small bilateral pleural effusions.
[2023-07-24] MEDS: IPRATROPIUM-ALBUTEROL 3 ML NEB INHALATION PRN (07:51)
[2023-07-24] MEDS: SYMBICORT 80-4.5 MCG INHALER INHALATION SCH ×2 (07:51→20:22)
[2023-07-24] MEDS: IPRATROPIUM 0.5 MG/2.5 ML NEBU INHALATION SCH (07:52)
[2023-07-24] MEDS: IPRATROPIUM-ALBUTEROL 3 ML NEB INHALATION SCH ×4 (08:00→20:22)
--- NOTE | 2023-07-24 09:09 | P.PN ---
Subjective Progress Note Date: 07/24/23 I am seeing this patient in new consultation today 07/21/2023 after he was kwok sferred to the intensive care unit last night due to an unstable tachyarrhythmia, possibly V. tach. Patient is a 63-year-old white male with past medical history significant for atrial fibrillation, coronary artery disease with prior PCI/stents 7, heart failure, prior CVA/TIA with residual right-sided weakness, hyperlipidemia, hypertension, COPD, chronic oxygen dependence, chronic ongoing tobacco dependence, obstructive sleep apnea noncompliant with CPAP, prior C-spine fusion, seizure disorder, SLE and lupus nephritis, among other things. Patient originally came to the emergency room back on July 17 complaining of difficulty swallowing. He's had trouble swallowing solid and liquid foods. This has been ongoing for the past 5 months, but has worsened over the last week. He denies any odynophagia or hematemesis. Denies weight loss. He did have an EGD on July 18, and a PEG tube was successfully placed. During the procedure, the patient did not have any significant esophageal strictures or obstructions. On admission, a CT of the neck showed soft tissue thickening and indistinctness involving the glottic and supraglottic airway. At the moment of the CT there was no palmira airway at the level of the glottis presumably due to redundant soft tissue at the moment of imaging. Otherwise unremarkable. Postoperatively, the patient was recovering on the general medical floor. Last night, he became tachycardic and hypotensive. An A-team was called. Patient was found to be in a wide complex tachyarrhythmia, possibly ventricular tachycardia. Rhythm was terminated with 2 doses of 150 mg amiodarone, 100 mg of lidocaine, 4 g of magnesium sulfate. Patient is a DO NOT RESUSCITATE. He does not want CPR, defibrillation, or mechanical ventilation. He is okay with medications. There are reports the patient may also have had 2 generalized tonic-clonic seizures. Patient's last reported seizure before this was 3 years ago. Patient denies missing any of his antiepileptic medications despite having difficulty swallowing. Seizure-like activity was terminated with 1 mg of Ativan. Patient was then transferred to intensive care unit. Currently, the patient is sitting up in bed, on 3 L/m nasal cannula, in no acute distress. Blood pressure is normotensive. Heart rhythm is currently normal sinus rhythm at about 60 beats per minute, but he does frequently transition in and out of atrial fibrillation with rapid ventricular rate and aberrant conduction. Amiodarone is currently infusing at 1 mg/m. Lidocaine infusing at 1 mg/m. Normal saline is infusing at 50 ML's per hour. Patient is relatively asymptomatic during these events. Patient denies any chest pain, heart palpitations, lightheadedness, or shortness of breath. There is a PEG tube infusing Jevity tube feeds at 39 ML's per hour. Chest x-ray on arrival showed basilar atelectasis or early infiltrate. Denies infectious symptoms such as fever, cough, shortness of breath, chest pain. Most recent CBC from July 19rst has a WBC count of 13.6, hemoglobin 15.2, hematocrit 48, platelet 168. Most recent BMP from last night shows a sodium 140, potassium 3.4, chloride 101, serum bicarb 28, BUN 9, creatinine 0.71, glucose 175. Lactic acid was mildly elevated at 2.6. Magnesium was 6, patient did receive 4 g of magnesium during the rapid response. Troponin 0.014. Patient will be monitored in the intensive care unit. On today's evaluation of 07/22/2022, patient is free of any chest pain. The cardiac rhythm is currently sinus. He is on 4 L of oxygen by nasal cannula. History of any chest pain. He is off antiarrhythmic and is currently off amiodarone and off lidocaine. The patient's is otherwise doing well. He is awake and alert. Cardiac catheterization was offered to him regarding his r ecent V. tach. The patient has declined the procedure. His sodium levels of 141, potassium levels at 3.6 and his been replaced. BUN is at 10 with a creatinine of 0.55. UA is negative. Is the loose gauze 11.2 with a hemoglobin 13.0 and a platelet count of 126. The patient is currently on oral amiodarone 400 mg twice a day. He is off the IV heparin. Rest of the medications remain unchanged. No seizure activity has been noted. EEG was done yesterday and it showed normal findings. Neurologic consultation was also obtained and their input is also appreciated. Echocardiogram was also completed on 07/21/2023 indicating ejection fraction of 20-25%, consistent with severe cardiomyopathy. No evidence of any significant valvular abnormalities. On 07/23/2023, the patient is status post cardiac catheterization. The patient's history of any chest pain. Cardiac rhythm is sinus. Cardiac catheterization was done. No interventions were done in terms of stenting. The patient is doing well at this point in time. His awake and alert and hemodynamically stable. Awaiting further recommendations from cardiology regarding the possibility of an AICD placement. Meanwhile, the patient is doing well. He is on oxygen at 3 L. His hemodynamically stable. The BUN of 10 with a creatinine of 0.4. Level was 11.4 and hemoglobin is at 12.4. No seizure activity has been noted. As mentioned, has severe cardiac myopathy with an EF of around 20-25%. The patient is currently still in the intensive care unit. The patient's remains on amiodarone 400 mg by mouth twice a day. He is also on metoprolol 25 mg twice a day. Rest of the home medications have been all resumed including his immunosuppression for lupus nephritis and he remains on a combination of CellCept and prednisone. His bronchodilators are still on as the patient is on Symbicort maintenance and DuoNeb updrafts [id number]. He remains on Dilantin. He is also on valproic acid. On today's evaluation of 07/24/2023, I'm seeing the patient for a follow-up. Is awake and alert and communicating. The patient is post cardiac catheterization that showed no obstructive disease and there was mild to moderate athero sclerotic changes and no interventions were done. Furthermore, the patient immediately with the financial systems analyst and the recommendation was insertion of AICD for sustained VT/cardiomyopathy. The patient declined that. The patient wanted to be treated medically. He has CHF with an ejection fraction of 25%. He also has a cardiac rhythm is sinus with frequent PACs. His chest x-ray from today showing some atelectatic changes in the lung bases bilaterally. There could be also small bilateral pleural effusion. There is a right midlung airspace disease which has not changed from earlier evaluations. He is on 2 L of oxygen by nasal cannula. His white cell cause of 9.4 with a hemoglobin of 13. BUN is at 11 with a creatinine of 0.6. Sodium levels of 141. As mentioned earlier, the patient continues to receive enteral feeding for nutritional support. This morning, the feedings on hold. He has dysphagia failed 2 swallow and the patient accordingly was given a PEG tube. Objective - Vital Signs Vital signs: Vital Signs Temp 98.2 F 07/24/23 04:00 Pulse 62 07/24/23 08:02 Resp 17 07/24/23 07:00 BP 148/71 07/24/23 07:00 Pulse Ox 92 L 07/24/23 07:00 FiO2 Intake & Output 07/23/23 07/24/23 07/24/23 18:59 06:59 18:59 Intake Total 1510 805 50 Output Total 1350 250 0 Balance 160 555 50 Weight 92.5 kg 92 kg Intake: IV 900 550 50 Sodium Chloride 0.9% 1, 550 550 50 000 ml @ 50 mls/hr IV . Q20H [facility] Rx#:[id number] Tube Feeding 550 225 0 Other 60 30 0 Output: Urine 1350 250 0 Other: Voiding Method Urinal Urinal # Voids 1 85 - Exam GENERAL EXAM: Alert, 63-year-old white male, comfortable in no apparent distress. He is on 3 liters /min HEAD: Normocephalic and atraumatic EYES: Normal reaction of pupils, equal size. NOSE: Clear with pink turbinates. THROAT: No erythema or exudates. Voice is hoarse NECK: No masses, no JVD. CHEST: No chest wall deformity. LUNGS: Equal air entry with no crackles, wheeze, rhonchi or dullness. On 4 L/m nasal cannula. No conversational dyspnea or accessory muscle use.. CVS: S1 and S2 normal with soft systolic grade 1 murmur, regular rhythm. No other extra heart sounds ABDOMEN: No hepatosplenomegaly, active bowel sounds, no guarding or rigidity. PEG tube in place SPINE: No scoliosis or deformity SKIN: No rashes CENTRAL NERVOUS SYSTEM: Right sided hemiparesis, right arm and right leg grade 4/5 strength. Left upper and left lower extremities grade 5/5 strength. No other focal deficits EXTREMITIES: There is no peripheral edema, clubbing, or cyanosis. Peripheral pulses are intact. - Labs CBC & Chem 7: 07/24/23 05:19 07/24/23 05:19 Labs: Abnormal Lab Results - Last 24 Hours (Table) 07/23/23 07/24/23 07/24/23 Range/Units 12:10 05:19 05:19 RBC 4.12 L (4.30-5.90) m/uL MCV 100.1 H (80.0-100.0) fL Plt Count 131 L (150-450) k/uL Carbon Dioxide 39 H (22-30) mmol/L Creatinine 0.62 L (0.66-1.25) mg/dL Glucose 100 H (74-99) mg/dL POC Glucose (mg/dL) 135 H (70-110) mg/dL Microbiology - Last 24 Hours (Table) 07/21/23 20:20 Gram Stain - Preliminary Sputum Assessment and Plan Assessment: Unstable wide complex tachyarrhythmia, possibly ventricular tachycardia, terminated with 2 doses of 150 mg IV amiodarone, 100 mg of IV lidocaine, 4 g of IV magnesium sulfate. Patient was transferred to the intensive care unit for closer monitoring. over the past 24 hours, the patient has not had any further cardiac arrhythmias. Patient is currently off amiodarone drip and the patient is currently off lidocaine. The patient is currently on oral amiodarone 400 mg by mouth twice a day. Cardiac rhythm is sinus. The patient is also on Lopressor 25 mg by mouth twice a day. The cardiac catheterization showed nonocclusive disease. No interventions were done. The patient immediately with electrophysiology/EP services and the patient was offered AICD placement. He declined and he wanted to glide and be treated medically. The patient is currently on amiodarone 4 mg by mouth twice a day. He is also on metoprolol 25 mg twice a day. He remains on Lasix 60 mg by mouth twice a day. CAD and the patient is post cath, the patient has triple-vessel disease with patent stents within the LAD and RCA. Severe cardiomyopathy with impaired LV function and ejection fraction of 20-25% Suspected breakthrough seizure, terminated with 1 mg of Ativan IV push. Home antiepileptic medications have been resumed. Patient does have history of seizure disorder. He is currently on a combination of Dilantin and valproic acid. Hypokalemia, being replaced per protocol, replaced Hypermagnesemia Dysphagia, status post operative day #5 following PEG tube placement. During the EGD no obvious esophageal strictures or obstructions were noted. History of coronary artery disease, with prior ND and stents Benign essential hypertension Hyperlipidemia History of CVA/TIA Chronic obstructive pulmonary disease, stable. Normally maintained on Trelegy Ellipta inhaler and DuoNeb inhalations on an outpatient basis. Chronic hypoxemic respiratory failure, currently on 3 L/m nasal cannula, which is what he wears at home Obstructive sleep apnea, noncompliant with CPAP Systemic lupus erythematous, lupus nephritis, maintained on CellCept Chronic ongoing tobacco dependence, reportedly smokes up to 1-1/2 packs per day Plan: Cardiac catheterization done, AICD offered by cardiology, the patient declined Current cardiac rhythm is sinus and no further ventricular arrhythmias as been noted and the patient remains on a combination of metoprolol and amiodarone Pulmonary status is stable and the patient remains somewhat between 3 and 4 L of oxygen nasal cannula The patient is currently on oral amiodarone The patient is currently on metoprolol The patient has no seizure activity The patient is covered with antiepileptics The patient is undergoing enteral feeding for insurance support through his PEG tube prednisone at a dose of 10 mg by mouth daily. Continue CellCept. Continue valproic acid 250 mg per PEG tube twice a day and Dilantin will follow, the patient will need a visual inspection/endoscopic inspection of the upper airways looking for any anatomic obstruction based on his ongoing dysphagia. I reviewed again the CAT scan of the neck and the patient has soft tissue thickening involving the glottic and supraglottic airway. Based on the CAT scan findings, there is no patent airway at the level of the notice. Kyphosis reasonable to the and airway inspection on him. I wanted to do an upper airway and lower airway inspection at the bedside throughout the flexible Bronchoscopy if a clearance is given by cardiology.
[2023-07-24] MEDS ORDERED: MIDAZOLAM 1 MG/ML 5 ML VIAL IV STA (09:40)
[2023-07-24] MEDS: oxyCODONE-APAP 10-325MG 1 EACH TAB PO PRN ×2 (09:44→18:03)
[2023-07-24] MEDS: FAMOTIDINE 20 MG TAB PO SCH (09:44)
[2023-07-24] MEDS: LACOSAMIDE 50 MG TABLET PO SCH ×2 (09:44→20:40)
[2023-07-24] MEDS: AMIODARONE 200 MG TAB PO SCH ×2 (09:44→20:39)
[2023-07-24] MEDS: NICOTINE 21MG/24HR PATCH TRANSDERM SCH (09:45)
[2023-07-24] MEDS: METOPROLOL TARTRATE 25 MG TAB PO SCH ×2 (09:45→20:39)
[2023-07-24] MEDS: PHENYTOIN ORAL SUSP 100 MG/4 ML CUP PO SCH ×2 (09:45→20:39)
[2023-07-24] MEDS: VALPROIC ACID ORAL SOLN 250 MG/5 ML CUP PEG/G-TUBE SCH ×2 (09:46→20:39)
--- NOTE | 2023-07-24 10:15 | P.PN ---
Subjective History of present illness: Cardiology was paged on urgent bases at patient was noticed to be in Tachycardic rhythm and seziure which was not getting controlled. A team could not determine what was the rhythm and was not responding to adenosine. Patient was no code with DNI and no compressions and shocking orders. On bedside evaluation patient was noticed to be in Vtac HR 200. Patient got 150mg amiodarone x 2 which broke the Vtach. He was intermittently going in Vtach for which we gave 4 gm Mgso4 and 100 mg lidocaine, After this patient stabilized. During the code, patient was loosing pulse intermittently but being no chest compressions order, no chest compressions were performed. Patient was somnolent but arousable after ROSC ECG after ROSC showed NSR with lateral ST depressions and frequent PVCs, monomorphic. Labs from yesterday showed Hb 15, normal bull driver 0.7, and WNL electrolytes Patient was admitted on 07/17/23. 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 07/21 Patient seen and examined. Denies any chest pain or pressure. Troponins mildly elevated. No further VT. No seizure like activity. Admits has had a number of cardiac arrests in the past. Has been recommended to undergo AICD placement in the past. Echo shows EF decreased to 20-25%. Wanting to go home and long discussion regarding need to stay. 07/22 Patient seen and examined. Attempted scheduling of heart catheterization today however appears due to logistics likely will not be done until tomorrow. He was transitioned from IV amiodarone to oral amiodarone. He denies any chest pain or pressure. He is fixated that he can prevent similar episodes by taking nitroglycerin at home. 07/23 Patient seen and examined. Patient underwent diagnostic heart catheterization which showed no obstructive disease, mild to moderate disease. He has had intermittent bradycardia with heart rates in the mid 50s on the metoprolol as well as amiodarone. Discussed case with electrophysiology recommending AICD placement for sustained ventricular tachycardia, cardiomyopathy. 07/24 Patient seen and examined. Patient denies any chest pain or pressure. Pulmonology concern with closure of his glottis and recommending a scope. No SOB. No VT. EP saw patient and patient adamant he does not want rescusitation. Concern with brother and dad having "heart exploding" after defib. Patient had long discussion with electrophysiology and does not want to proceed with AICD. PHYSICAL EXAMINATION Vital signs reviewed. Lungs: Poor inspiratory effort, mild crackles audible. Heart: Regular rate and rhythm, S1-S2, no S3, no murmur or rub. Abdomen: Soft nontender, Extremities: 1+ peripheral edema Neuro: Patient is alert ASSESSMENT Sustained ventricular tachycardia Cardiac arrest status post return of spontaneous circulation DNR/DNI Lupus Nephritis Aspiration COPD Smoker CAD with history of prior PCI NSTEMI Cardiomyopathy EF 20-25% PLAN Continue with oral amiodarone. There was previous concern regarding bradycardia and may also have some component of tachybradycardia syndrome, sick sinus syndrome however needs beta himanshu and Amiodarone for his VT. No significant coronary artery disease to explain his ventricular tachycardia Patient with long discussion with electrophysiology with patient not wanting any resuscitation. This was explained by electrophysiology and I myself explained risks and benefits of defibrillator. Patient does not want a LifeVest either. Patient appears to understand his risk and still does not want to proceed with AICD. Therefore patient appears stable for discharge home on the amiodarone and beta himanshu. Objective - Vital Signs Vital signs: Vital Signs Temp 98.2 F 07/24/23 04:00 Pulse 62 07/24/23 08:02 Resp 17 07/24/23 07:00 BP 148/71 07/24/23 07:00 Pulse Ox 92 L 07/24/23 07:00 FiO2 Intake & Output 07/23/23 07/24/23 07/24/23 18:59 06:59 18:59 Intake Total 1510 805 50 Output Total 1350 250 0 Balance 160 555 50 Weight 92.5 kg 92 kg Intake: IV 900 550 50 Sodium Chloride 0.9% 1, 550 550 50 000 ml @ 50 mls/hr IV . Q20H [facility] Rx#:[id number] Tube Feeding 550 225 0 Other 60 30 0 Output: Urine 1350 250 0 Other: Voiding Method Urinal Urinal # Voids 1 85 - Labs CBC & Chem 7: 07/24/23 05:19 07/24/23 05:19 Labs: Abnormal Lab Results - Last 24 Hours (Table) 07/23/23 07/24/23 07/24/23 Range/Units 12:10 05:19 05:19 RBC 4.12 L (4.30-5.90) m/uL MCV 100.1 H (80.0-100.0) fL Plt Count 131 L (150-450) k/uL Carbon Dioxide 39 H (22-30) mmol/L Creatinine 0.62 L (0.66-1.25) mg/dL Glucose 100 H (74-99) mg/dL POC Glucose (mg/dL) 135 H (70-110) mg/dL Microbiology - Last 24 Hours (Table) 07/21/23 20:20 Gram Stain - Preliminary Sputum
--- NOTE | 2023-07-24 10:35 | CONS ---
CONSULTATION I was called to evaluate and discuss ICD implantation on Mr. Fajardo. This is a 63-year-old male patient who has known severe cardiomyopathy with a history of syncope with documented VT/VF. This gentleman has multiple medical problems as well as cardiomyopathy and heart failure. About 3 years back, he and his had made a decision for DNR status for himself. I had a very detailed discussion with the patient. I asked the patient if he understood the meaning and implication of DNR. The patient gave a very lucid clear answer and exhibited a clear understanding of the concept of DNR. I asked him regarding the cardiac arrest and if it were to happen again what would he want me to do. He clearly stated that he would like me to try medications only and if they did not work, then no further treatment should be given. Specifically, he did not want defibrillation. He also stated that he and his have discussed this at length and his is in complete agreement with this decision and he has a DNR order in place. Based on the patient's clear and lucid understanding of his medical conditions and the concept of DNR and his wishes, I would agree with the patient and not recommend an ICD. I explained to him that there was no difference between getting an external shock with paddles versus getting shocked internally via a defibrillator. I also explained to him that the internal defibrillator would not strengthen his heart muscle and he would have to rely on medical treatment for this. The patient understands this and is comfortable with this decision. No ICD implantation for this gentleman. Medical treatment only. He remains DNR. MMODL / IJN: [id number] /
--- NOTE | 2023-07-24 10:37 | P.PCN ---
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 Subglottic trachea is patent. Procedure(s) Performed: Flexible bronchoscopy, inspection of the upper airway and trachea Anesthesia: MAC Surgeon: Darian Bone Estimated Blood Loss (ml): 0 Condition: critical Disposition: ICU Operative Findings: This procedure was done and the intensive care unit. A preoperative clearance was obtained by cardiology. A consent was obtained. A timeout was done. Following that, the flexible bronchoscope was introduced to the right nostril and was advanced to the posterior pharynx and later on to the larynx. The pharynx was within normal limits. Larynx was obviously abnormal. The epiglottis was easily identified. It was redundant and quite floppy. There was irregular growth of tissue causing effacement of the right arytenoid and anatomic obstruction of the supraglottic area. This growth was extending laterally to the left and involving the anterior epiglottis. The supraglottic area was quite narrow and there was narrowing probably in the order of 50% of his normal lumen. Vocal cords were functional. Excessive rest or secretions identified and the secretions were suctioned out. The growth that was noted in the cords and arytenoids was causing effacement and anatomic distortion. I was able to pass the flexible bronchoscope through the cords and extended Towers the subglottic area and the subglottic trachea and the method in the lower trachea was patent. Rest or secretions were identified and the role suctioned out. No biopsies were taken. The flexible bronchoscope was removed. The case will be discussed with ENT. 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
[2023-07-24] MEDS: HEPARIN SOD,PORK IN 0.45% NACL 25,000 UNIT in 0.45% NACL 1 250ML.BAG IV SCH (10:58)
--- NOTE | 2023-07-24 11:11 | P.PN ---
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 Patient developed V. tach/cardiac arrest on 07/20/2023. He did not need to be intubated. Patient was transferred to ICU. Status post amiodarone drip and lidocaine drip. Status post cardiac catheterization. Did not need stents Patient has good urine output. Serum creatinine 0.6 Currently maintained on saline at 50 mL an hour. Patient is having a bedside laryngoscopy to assess abnormal findings noted on CT. There does appear to be significant changes in the pharyngeal area suggestive of possible malignancy. Objective - Vital Signs Vital signs: Vital Signs Temp 98.1 F 07/24/23 10:00 Pulse 65 07/24/23 10:30 Resp 12 07/24/23 10:30 BP 111/73 07/24/23 10:30 Pulse Ox 95 07/24/23 10:30 FiO2 Intake & Output 07/23/23 07/24/23 07/24/23 18:59 06:59 18:59 Intake Total 1510 805 220 Output Total 1350 250 200 Balance 160 555 20 Weight 92.5 kg 92 kg Intake: IV 900 550 220 Invasive Line 5 10 Invasive Line 7 10 Sodium Chloride 0.9% 1, 550 550 200 000 ml @ 50 mls/hr IV . Q20H [facility] Rx#:[id number] Tube Feeding 550 225 0 Other 60 30 0 Output: Urine 1350 250 200 Other: Voiding Method Urinal Urinal # Voids 1 85 # Bowel Movements 0 - Exam patient is being sedated for laryngoscopy. Abdomen is soft nontender No edema noted in the extremities. Bedside laryngoscopy being performed - Labs CBC & Chem 7: 07/24/23 05:19 07/24/23 05:19 Labs: Abnormal Lab Results - Last 24 Hours (Table) 07/23/23 07/24/23 07/24/23 Range/Units 12:10 05:19 05:19 RBC 4.12 L (4.30-5.90) m/uL MCV 100.1 H (80.0-100.0) fL Plt Count 131 L (150-450) k/uL Carbon Dioxide 39 H (22-30) mmol/L Creatinine 0.62 L (0.66-1.25) mg/dL Glucose 100 H (74-99) mg/dL POC Glucose (mg/dL) 135 H (70-110) mg/dL Microbiology - Last 24 Hours (Table) 07/21/23 20:20 Gram Stain - Preliminary Sputum Assessment and Plan Assessment: 1. History of lupus nephritis currently maintained on CellCept. Serum creatinine at 0.6 mg/dL. UA shows no evidence of proteinuria. It is completely benign 2. Severe aspiration status post PEG tube placement 3. Soft tissue thickening noted in the glottic and supraglottic airway on computed tomography scan. Recommend follow-up with the ENT. Bedside laryngoscopy shows changes in the pharynx. ENT will be contacted again. 4. Status post cardiac arrest/V. tach, status post amiodarone drip and lidocaine drip. Being followed by cardiology. Status post cardiac cath this morning with no stent placement. Details not available Plan: Continue CellCept Decrease Lasix DC IV fluids Further evaluation by ENT of pharyngeal abnormality, possible malignancy. Follow-up as outpatient post discharge.
[2023-07-24] MEDS: PARoxetine 20 MG TAB PO SCH (11:21)
[2023-07-24] MEDS: ATORVASTATIN 20 MG TAB PO SCH (11:21)
[2023-07-24] MEDS: MONTELUKAST 10 MG TAB PO SCH (11:21)
[2023-07-24] MEDS: predniSONE 10 MG TAB PO SCH (11:21)
[2023-07-24] MEDS: PREGABALIN 100 MG CAP PO SCH ×3 (11:21→20:43)
[2023-07-24] MEDS: allopurinoL 100 MG TAB PO SCH (11:21)
[2023-07-24] MEDS: FUROSEMIDE 20 MG TAB PO SCH (11:58)
[2023-07-24] MEDS ORDERED: VANCOMYCIN 1,400 MG in SODIUM CHLORIDE 0.9% 250 ML IVPB ONE (12:00)
--- NOTE | 2023-07-24 15:20 | P.PN ---
Subjective Progress Note Date: 07/24/23 This is a 63-year-old male well known to me. He has chronic respiratory failure. He continues to smoke. He has a history of lupus and Freytes. Over the past several months he has complaints of coughing hoarseness in trouble swallowing. We have been unable to schedule him with an ear nose and throat doctor. A barium swallow test was ordered for evaluation, and he was found to be aspirating. He modified barium swallow testWas ordered and they were unable to not have him aspirate even with honey thick liquids. He came in through the emergency room and is now admitted for peg tube placement so that he may remain NPO as to not continue to develop pneumonia. At this time he has no complaints and is waiting his surgery. 07/19/2023: Patient is postop day 1 PEG tube placement for severe aspiration. EGD failed to show any significant strictures or abnormalities. ENT is unavailable to me bedside procedures at this time. General surgery and signed off as gastric urology perform the PEG tube. Patient's home medications will be restarted. Dietary will recommend feeding for him. He denies any chest pains pressures at this time. He does have ongoing chronic low back pain. Has been receiving Dilaudid for this. He is a known heavy smoker and has a nicotine patch ordered. He has oxygen-dependent COPD along with lupus nephritis and multiple other comorbidities. Currently the patient denies any chest pains or pressures. Just the shortness breath with exertion. 07/20/2023: Patient is reevaluated today. He is postop day #2 of PEG tube placement. He has tube feedings running at this time. Jevity 1.5 at 20 mL an hour with a goal of increasing it by 10 ML's every 8 hours to a goal of 39 miles per hour. 30 mL flush every 4 hours. At this time all his medications and converted to PEG tube feedings with the exception of her CellCept. This may not be crushed. Dr. Shannon and consult it since this was originally for post nephritis. Patient denies any chest pains pressures, as his chronic shortness of breath. Denies any nausea or nausea or vomiting. 07/21/2023 transferred to ICU last night after development of a wide complex tachycardia, appearing like V. tach, accompanied by hypotension, change in mental status and two - three appearing seizure-like activities. Brain CT reported no acute hemorrhage, hydrocephalus or mass effect. Lactic acid last 2.6 around the time of the event, decreased to 1 approximately 4 hours post. Received amiodarone and lidocaine and magnesium, returned into normal sinus rhythm. Magnesium level II.1 prior to the event, level of 6 last night(received magnesium during code) and early this morning decreased to 3. Received Ativan with no further seizure activity. Currently sinus rhythm, fluctuating with some A. fib, maintained on both amiodarone and lidocaine drips. Denies chest pain, palpitations or shortness of breath., Maintaining O2 sats in the 90s on 3 L nasal cannula. Evaluated by ENT with recommendations noted and appreciated, including a suspension microlaryngoscopy under general anesthesia to evaluate his lower larynx and upper airway with the concern of possible malignancy. Troponins 0.014, 0.715, 0.989. Evaluated by cardiology, recommending cardiac catheterization tomorrow. Renal function stable .afebrile, normal WBC .hemoglobin 12.8, platelets 137. Blood sugars controlled .Neurology consult in place Recommendations pending. Patient appears indecisive. 07/22/2023 lidocaine drip discontinued, amiodarone drip transitioned to oral. Remains in sinus rhythm. No further seizure activity. Dilantin level subtherapeutic, 4. Initially scheduled for cardiac catheterization today, res cheduled for tomorrow. Denies any chest pain palpitations or shortness of breath. Tolerating tube feeds at goal with minimal to no residuals. 07/23/2023 status post cardiac catheterization, reporting no obstructive disease, mild to moderate disease, no intervention. Cardiology/color maker recommending AICD placement for sustained ventricular tachycardia, cardiomyopathy, this admission. 07/24/2023 patient declining AICD and LifeVest this morning. Telemetry sinus rhythm with PACs .maintaining O2 sats in the mid to low 90s on 3 L nasal cannula. Chest x-ray reporting similar right midlung airspace opacity is given positioning, new small bilateral pleural effusions. He underwent flexible bronchoscopy inspection of the upper airway trachea this morning- phone screener expressing concern over a laryngeal tumor causing anatomic obstruction of the supraglottic area, suspicious for malignancy, ENT reconsulted. Tolerating tube feeds at goal with minimal to no residual. Bicarb 39, BUN 11, creatinine 0.62, nephrology following, Lasix decreased. Objective - Vital Signs Vital signs: Vital Signs Temp 98.1 F 07/24/23 10:00 Pulse 65 07/24/23 10:30 Resp 12 07/24/23 10:30 BP 111/73 07/24/23 10:30 Pulse Ox 95 07/24/23 10:30 FiO2 Intake & Output 07/23/23 07/24/23 07/24/23 18:59 06:59 18:59 Intake Total 1510 805 200 Output Total 1350 250 200 Balance 160 555 0 Weight 92.5 kg 92 kg Intake: IV 900 550 200 Sodium Chloride 0.9% 1, 550 550 200 000 ml @ 50 mls/hr IV . Q20H [facility] Rx#:[id number] Tube Feeding 550 225 0 Other 60 30 0 Output: Urine 1350 250 200 Other: Voiding Method Urinal Urinal # Voids 1 85 # Bowel Movements 0 - Exam - Exam General: Alert and oriented 3, sitting up, no acute distress. Neck: supple,no JVD. Cardiovascular: S1S2 is normal,regular rate and rhythm. Respiratory: Unlabored, Lungs are coarse but equal bilaterally, essentially clear. Gastrointestinal: Soft, non-distended, non-tender abdomen , no guarding,+BS. PEG tube present. EXTREMITIES: no pedal edema, no calf tenderness or swelling. No clubbing or cyanosis. Neurological: CN II-XII intact, no focal deficits Skin: warm and dry, no rashes noted. - Labs CBC & Chem 7: 07/24/23 05:19 07/24/23 05:19 Labs: Abnormal Lab Results - Last 24 Hours (Table) 07/23/23 07/24/23 07/24/23 Range/Units 12:10 05:19 05:19 RBC 4.12 L (4.30-5.90) m/uL MCV 100.1 H (80.0-100.0) fL Plt Count 131 L (150-450) k/uL Carbon Dioxide 39 H (22-30) mmol/L Creatinine 0.62 L (0.66-1.25) mg/dL Glucose 100 H (74-99) mg/dL POC Glucose (mg/dL) 135 H (70-110) mg/dL Microbiology - Last 24 Hours (Table) 07/21/23 20:20 Gram Stain - Preliminary Sputum Assessment and Plan Assessment: (1) Aspiration into airway Current Visit: Yes Status: Acute Code(s): T17.908A - UNSP FB IN RESP TRACT, PART UNSP CAUSING OTH INJURY, INIT SNOMED Code(s): 627184981 (2) Abnormal computed tomography of soft tissue of neck. 07/24/2023 Status post flexible bronchoscopy reporting abnormal tumor-like growth involving the cord/arytenoids, functional mobile cords, compromised airway and the supraglottic area secondary to the above. Supraglottic trachea patent. 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 ENT reconsulted. Current Visit: Yes Status: Acute Code(s): R93.89 - ABNORMAL FINDINGS ON DX IMAGING OF OTH BODY STRUCTURES SNOMED Code(s): 686909177 (3) Coronary artery disease Current Visit: Yes Status: Acute Code(s): I25.10 - ATHSCL HEART DISEASE OF [place] CORONARY ARTERY W/O ANG PCTRS SNOMED Code(s): 93882601 (4) Dysphagia Current Visit: Yes Status: Acute Code(s): R13.10 - DYSPHAGIA, UNSPECIFIED SNOMED Code(s): 58660076 (5) History of cervical spinal surgery Current Visit: Yes Status: Acute Code(s): Z98.890 - OTHER SPECIFIED POSTPROCEDURAL STATES SNOMED Code(s): 871085139 (6) COPD (chronic obstructive pulmonary disease) Current Visit: No Status: Acute Code(s): J44.9 - CHRONIC OBSTRUCTIVE PULMONARY DISEASE, UNSPECIFIED SNOMED Code(s): 54509454 (7) Chronic kidney disease Current Visit: No Status: Acute Code(s): N18.9 - CHRONIC KIDNEY DISEASE, UNSPECIFIED SNOMED Code(s): 412849094 (8) Chronic systolic (congestive) heart failure Current Visit: No Status: Acute Code(s): I50.22 - CHRONIC SYSTOLIC (CONGESTI VE) HEART FAILURE SNOMED Code(s): 321488162 (9) HTN (hypertension) Current Visit: No Status: Acute Code(s): I10 - ESSENTIAL (PRIMARY) HYPERTENSION SNOMED Code(s): 44886417 (10) History of seizure disorder Current Visit: No Status: Acute Code(s): Z86.69 - PERSONAL HISTORY OF DIS OF THE NERVOUS SYS AND SENSE ORGANS SNOMED Code(s): 072720886 (11) Hypoxemia Current Visit: No Status: Acute Code(s): R09.02 - HYPOXEMIA SNOMED Code(s): 811102644 (12) Ischemic heart disease Current Visit: No Status: Acute Code(s): I25.9 - CHRONIC ISCHEMIC HEART DISEASE, UNSPECIFIED SNOMED Code(s): 874839212 (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 Current Visit: No Status: Acute Code(s): M32.14 - GLOMERULAR DISEASE IN SYSTEMIC LUPUS ERYTHEMATOSUS SNOMED Code(s): 67731086 (14) Nicotine addiction Current Visit: No Status: Acute Code(s): F17.200 - NICOTINE DEPENDENCE, UNSPECIFIED, UNCOMPLICATED SNOMED Code(s): 06997945 (15) Type 2 diabetes mellitus without complications Current Visit: No Status: Acute Code(s): E11.9 - TYPE 2 DIABETES MELLITUS WITHOUT COMPLICATIONS SNOMED Code(s): 164312023 (16) S/P percutaneous endoscopic gastrostomy (PEG) tube placement Current Visit: Yes Status: Acute Code(s): Z93.1 - GASTROSTOMY STATUS SNOMED Code(s): 434460591 (17) morbid obesity, BMI 30 (18) suspected breakthrough seizures reported possibly related to arrhythmia/V. tach, abnormal electrolytes (19) Sustained ventricular tachycardia, status post cardiac arrest with return of spontaneous circulation. 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 AICD pending. (20) cardiomyopathy, EF 20-25% Plan: Continue on current medication regime ,monitoring and symptomatic treatment. Patient now declining AICD and lifevest. Antiarrhythmics as per cardiology. ENT reconsulted as per pulmonary regarding further evaluation regarding concern of laryngeal tumor causing anatomic obstruction of the supr aglottic area. Potential transfer to a tertiary care center if patient would even consent. Plan: Continue on current medication regime ,monitoring and symptomatic treatment.
[2023-07-24] MEDS: PHENYTOIN SODIUM EXTENDED 100 MG CAP PO SCH (15:34)
[2023-07-24 18:24] LABS: Glucose,Whole Blood 122 mg/dL (70-110)
[2023-07-24] MEDS: AMITRIPTYLINE HCL 25 MG TAB PO SCH (20:39)
[2023-07-25] MEDS: oxyCODONE-APAP 10-325MG 1 EACH TAB PO PRN ×2 (05:22→14:58)
[2023-07-25 05:56] LABS: Glucose,Whole Blood 131 mg/dL (70-110)
[2023-07-25 06:07] LABS: Basophils % (A) 0 %; Eosinophils # (A) 0.2 k/uL (0-0.7); Eosinophils % (A) 2 %; Lymphocytes # (A) 1.6 k/uL (1.0-4.8); Lymphocytes % (A) 19 %; MCH 31.4 pg (25.0-35.0); MCHC 31.6 g/dL (31.0-37.0); MCV 99.2 fL (80.0-100.0); Mean Platelet Volume 9.4; Monocytes # (A) 0.5 k/uL (0-1.0); Monocytes % (A) 6 %; Neutrophils # (A) 6.1 k/uL (1.3-7.7); Neutrophils % (A) 72 %; Platelet Count 140 k/uL (150-450); RBC 4.13 m/uL (4.30-5.90); RDW 12.9 % (11.5-15.5); WBC 8.5 k/uL (3.8-10.6)
[2023-07-25 06:14] LABS: African American GFR (CKD) >90 (>60 ml/min/1.73 sqM); Anion Gap 6 mmol/L; Blood Urea Nitrogen 11 mg/dL (9-20); Calcium 8.9 mg/dL (8.4-10.2); Carbon Dioxide 35 mmol/L (22-30); Chloride 98 mmol/L (98-107); Glucose 124 mg/dL (74-99); Non-African American GFR(CKD) >90 (>60 ml/min/1.73 sqM); Sodium 139 mmol/L (137-145)
[2023-07-25] MEDS ORDERED: DOCUSATE ORAL SOLN 100 MG/10 ML CUP PEG/G-TUBE PRN (07:11)
[2023-07-25] MEDS: SYMBICORT 80-4.5 MCG INHALER INHALATION SCH (08:37)
[2023-07-25] MEDS: IPRATROPIUM-ALBUTEROL 3 ML NEB INHALATION SCH ×3 (08:37→16:48)
--- NOTE | 2023-07-25 08:51 | P.PN ---
Subjective Patient is seen in follow for chronic kidney disease. Renal function at baseline. Lasix discontinued 07/24/2023. On 5 L nasal cannula. Receiving PEG tube feedings. Vital signs are stable. General: No acute distress. HEENT: Head exam is unremarkable. On nasal cannula. LUNGS: No audible rhonchi or wheezes. HEART: Rate and Rhythm are regular. ABDOMEN: Nontender. PEG tube noted. EXTREMITITES: No edema. Objective - Vital Signs Vital signs: Vital Signs Temp 97.8 F 07/25/23 04:00 Pulse 50 L 07/25/23 08:37 Resp 24 07/25/23 07:00 BP 114/67 07/25/23 07:00 Pulse Ox 95 07/25/23 08:40 FiO2 Intake & Output 07/24/23 07/25/23 07/25/23 18:59 06:59 18:59 Intake Total 725 300 20 Output Total 200 320 0 Balance 525 -20 20 Weight 92.8 kg Intake: IV 285 30 Invasive Line 5 30 30 Invasive Line 7 30 Sodium Chloride 0.9% 1, 225 000 ml @ 50 mls/hr IV . Q20H [facility] Rx#:[id number] Tube Feeding 80 180 20 Other 360 90 Output: Urine 200 320 0 Stool 0 0 Other: Voiding Method Urinal Urinal # Voids 1 1 # Bowel Movements 0 0 - Labs CBC & Chem 7: 07/25/23 05:30 07/25/23 05:30 Labs: Abnormal Lab Results - Last 24 Hours (Table) 07/24/23 07/25/23 07/25/23 Range/Units 18:22 05:30 05:30 RBC 4.13 L (4.30-5.90) m/uL Plt Count 140 L (150-450) k/uL Carbon Dioxide 35 H (22-30) mmol/L Creatinine 0.54 L (0.66-1.25) mg/dL Glucose 124 H (74-99) mg/dL POC Glucose (mg/dL) 122 H (70-110) mg/dL 07/25/23 Range/Units 05:54 RBC (4.30-5.90) m/uL Plt Count (150-450) k/uL Carbon Dioxide (22-30) mmol/L Creatinine (0.66-1.25) mg/dL Glucose (74-99) mg/dL POC Glucose (mg/dL) 131 H (70-110) mg/dL Assessment and Plan Plan: Assessment: 1. Chronic kidney disease stage I secondary to lupus nephritis maintained on CellCept. UA benign this admission. 2. Severe aspiration status post PEG tube placement. Currently nothing by mouth. 3. Glottic and supraglottic soft tissue thickening. ENT reconsulted. 4. Chronic systolic CHF with ejection fraction of 20-25%. 5. V. tach cardiac arrest. Status post cardiac catheterization done 07/23/2023 that showed triple-vessel coronary artery disease with patent stents. Plan: Maintain tube feeds. Maintain CellCept. Lasix stopped 07/24/2023. Avoid nephrotoxins.
[2023-07-25] MEDS ORDERED: DAPAGLIFLOZIN PROPANEDIOL 5 MG TABLET PO SCH (09:00)
--- NOTE | 2023-07-25 09:36 | P.PN ---
Subjective Progress Note Date: 07/25/23 I am seeing this patient in new consultation today 07/21/2023 after he was kwok sferred to the intensive care unit last night due to an unstable tachyarrhythmia, possibly V. tach. Patient is a 63-year-old white male with past medical history significant for atrial fibrillation, coronary artery disease with prior PCI/stents 7, heart failure, prior CVA/TIA with residual right-sided weakness, hyperlipidemia, hypertension, COPD, chronic oxygen dependence, chronic ongoing tobacco dependence, obstructive sleep apnea noncompliant with CPAP, prior C-spine fusion, seizure disorder, SLE and lupus nephritis, among other things. Patient originally came to the emergency room back on July 17 complaining of difficulty swallowing. He's had trouble swallowing solid and liquid foods. This has been ongoing for the past 5 months, but has worsened over the last week. He denies any odynophagia or hematemesis. Denies weight loss. He did have an EGD on July 18, and a PEG tube was successfully placed. During the procedure, the patient did not have any significant esophageal strictures or obstructions. On admission, a CT of the neck showed soft tissue thickening and indistinctness involving the glottic and supraglottic airway. At the moment of the CT there was no palmira airway at the level of the glottis presumably due to redundant soft tissue at the moment of imaging. Otherwise unremarkable. Postoperatively, the patient was recovering on the general medical floor. Last night, he became tachycardic and hypotensive. An A-team was called. Patient was found to be in a wide complex tachyarrhythmia, possibly ventricular tachycardia. Rhythm was terminated with 2 doses of 150 mg amiodarone, 100 mg of lidocaine, 4 g of magnesium sulfate. Patient is a DO NOT RESUSCITATE. He does not want CPR, defibrillation, or mechanical ventilation. He is okay with medications. There are reports the patient may also have had 2 generalized tonic-clonic seizures. Patient's last reported seizure before this was 3 years ago. Patient denies missing any of his antiepileptic medications despite having difficulty swallowing. Seizure-like activity was terminated with 1 mg of Ativan. Patient was then transferred to intensive care unit. Currently, the patient is sitting up in bed, on 3 L/m nasal cannula, in no acute distress. Blood pressure is normotensive. Heart rhythm is currently normal sinus rhythm at about 60 beats per minute, but he does frequently transition in and out of atrial fibrillation with rapid ventricular rate and aberrant conduction. Amiodarone is currently infusing at 1 mg/m. Lidocaine infusing at 1 mg/m. Normal saline is infusing at 50 ML's per hour. Patient is relatively asymptomatic during these events. Patient denies any chest pain, heart palpitations, lightheadedness, or shortness of breath. There is a PEG tube infusing Jevity tube feeds at 39 ML's per hour. Chest x-ray on arrival showed basilar atelectasis or early infiltrate. Denies infectious symptoms such as fever, cough, shortness of breath, chest pain. Most recent CBC from July 19rst has a WBC count of 13.6, hemoglobin 15.2, hematocrit 48, platelet 168. Most recent BMP from last night shows a sodium 140, potassium 3.4, chloride 101, serum bicarb 28, BUN 9, creatinine 0.71, glucose 175. Lactic acid was mildly elevated at 2.6. Magnesium was 6, patient did receive 4 g of magnesium during the rapid response. Troponin 0.014. Patient will be monitored in the intensive care unit. On today's evaluation of 07/22/2022, patient is free of any chest pain. The cardiac rhythm is currently sinus. He is on 4 L of oxygen by nasal cannula. History of any chest pain. He is off antiarrhythmic and is currently off amiodarone and off lidocaine. The patient's is otherwise doing well. He is awake and alert. Cardiac catheterization was offered to him regarding his r ecent V. tach. The patient has declined the procedure. His sodium levels of 141, potassium levels at 3.6 and his been replaced. BUN is at 10 with a creatinine of 0.55. UA is negative. Is the loose gauze 11.2 with a hemoglobin 13.0 and a platelet count of 126. The patient is currently on oral amiodarone 400 mg twice a day. He is off the IV heparin. Rest of the medications remain unchanged. No seizure activity has been noted. EEG was done yesterday and it showed normal findings. Neurologic consultation was also obtained and their input is also appreciated. Echocardiogram was also completed on 07/21/2023 indicating ejection fraction of 20-25%, consistent with severe cardiomyopathy. No evidence of any significant valvular abnormalities. On 07/23/2023, the patient is status post cardiac catheterization. The patient's history of any chest pain. Cardiac rhythm is sinus. Cardiac catheterization was done. No interventions were done in terms of stenting. The patient is doing well at this point in time. His awake and alert and hemodynamically stable. Awaiting further recommendations from cardiology regarding the possibility of an AICD placement. Meanwhile, the patient is doing well. He is on oxygen at 3 L. His hemodynamically stable. The BUN of 10 with a creatinine of 0.4. Level was 11.4 and hemoglobin is at 12.4. No seizure activity has been noted. As mentioned, has severe cardiac myopathy with an EF of around 20-25%. The patient is currently still in the intensive care unit. The patient's remains on amiodarone 400 mg by mouth twice a day. He is also on metoprolol 25 mg twice a day. Rest of the home medications have been all resumed including his immunosuppression for lupus nephritis and he remains on a combination of CellCept and prednisone. His bronchodilators are still on as the patient is on Symbicort maintenance and DuoNeb updrafts [id number]. He remains on Dilantin. He is also on valproic acid. On today's evaluation of 07/24/2023, I'm seeing the patient for a follow-up. Is awake and alert and communicating. The patient is post cardiac catheterization that showed no obstructive disease and there was mild to moderate athero sclerotic changes and no interventions were done. Furthermore, the patient immediately with the prisoner classification interviewer and the recommendation was insertion of AICD for sustained VT/cardiomyopathy. The patient declined that. The patient wanted to be treated medically. He has CHF with an ejection fraction of 25%. He also has a cardiac rhythm is sinus with frequent PACs. His chest x-ray from today showing some atelectatic changes in the lung bases bilaterally. There could be also small bilateral pleural effusion. There is a right midlung airspace disease which has not changed from earlier evaluations. He is on 2 L of oxygen by nasal cannula. His white cell cause of 9.4 with a hemoglobin of 13. BUN is at 11 with a creatinine of 0.6. Sodium levels of 141. As mentioned earlier, the patient continues to receive enteral feeding for nutritional support. This morning, the feedings on hold. He has dysphagia failed 2 swallow and the patient accordingly was given a PEG tube. On 07/25/2023, the patient is alert and awake and communicating. He remains on oxygen at 3 L. He continues to receive enteral feeding for nutritional support and is currently on Jevity 1.5 with a rate of 30 mL an hour. I performed a bedside bronchoscopy and didn't inspect his upper airway. There is a laryngeal mass which is quite concerning to me. I discussed this with ENT physician on- call. The patient does have an adequate airway. He doesn't have any stridor. He does have however a dysphagia for which an enteral feeding was initiated through a PEG tube. He will need a outpatient evaluations regarding his laryngeal mass. Please refer to the ENT note. Meanwhile, his cardiac status is stable. is having frequent PACs and occasional PVCs. No ventricular arrhythmias. He remains on a combination of metoprolol and amiodarone. He is known to have cardiomyopathy with an ejection fraction of 25%. Cardiac catheterization showed nonocclusive disease. AICD was offered and the patient declined. Urine 11 with a creatinine of 0.5. Sodiums of 139, he responds of 8.5 with a hemoglobin of 13. He is tolerating enteral feeding for nutritional support. No other changes in medication. Objective - Vital Signs Vital signs: Vital Signs Temp 97.8 F 07/25/23 04:00 Pulse 50 L 07/25/23 08:48 Resp 24 07/25/23 07:00 BP 114/67 07/25/23 07:00 Pulse Ox 95 07/25/23 08:40 FiO2 Intake & Output 07/24/23 07/25/23 07/25/23 18:59 06:59 18:59 Intake Total 725 300 20 Output Total 200 320 0 Balance 525 -20 20 Weight 92.8 kg Intake: IV 285 30 Invasive Line 5 30 30 Invasive Line 7 30 Sodium Chloride 0.9% 1, 225 000 ml @ 50 mls/hr IV . Q20H [facility] Rx#:[id number] Tube Feeding 80 180 20 Other 360 90 Output: Urine 200 320 0 Stool 0 0 Other: Voiding Method Urinal Urinal # Voids 1 1 # Bowel Movements 0 0 - Exam GENERAL EXAM: Alert, 63-year-old white male, comfortable in no apparent distress. He is on 3 liters /min HEAD: Normocephalic and atraumatic EYES: Normal reaction of pupils, equal size. NOSE: Clear with pink turbinates. THROAT: No erythema or exudates. Voice is hoarse NECK: No masses, no JVD. CHEST: No chest wall deformity. LUNGS: Equal air entry with no crackles, wheeze, rhonchi or dullness. On 3L/m nasal cannula. No conversational dyspnea or accessory muscle use.. CVS: S1 and S2 normal with soft systolic grade 1 murmur, regular rhythm. No other extra heart sounds ABDOMEN: No hepatosplenomegaly, active bowel sounds, no guarding or rigidity. PEG tube in place SPINE: No scoliosis or deformity SKIN: No rashes CENTRAL NERVOUS SYSTEM: Right sided hemiparesis, right arm and right leg grade 4/5 strength. Left upper and left lower extremities grade 5/5 strength. No other focal deficits EXTREMITIES: There is no peripheral edema, clubbing, or cyanosis. Peripheral pulses are intact. - Labs CBC & Chem 7: 07/25/23 05:30 07/25/23 05:30 Labs: Abnormal Lab Results - Last 24 Hours (Table) 07/24/23 07/25/23 07/25/23 Range/Units 18:22 05:30 05:30 RBC 4.13 L (4.30-5.90) m/uL Plt Count 140 L (150-450) k/uL Carbon Dioxide 35 H (22-30) mmol/L Creatinine 0.54 L (0.66-1.25) mg/dL Glucose 124 H (74-99) mg/dL POC Glucose (mg/dL) 122 H (70-110) mg/dL 07/25/23 Range/Units 05:54 RBC (4.30-5.90) m/uL Plt Count (150-450) k/uL Carbon Dioxide (22-30) mmol/L Creatinine (0.66-1.25) mg/dL Glucose (74-99) mg/dL POC Glucose (mg/dL) 131 H (70-110) mg/dL Assessment and Plan Assessment: Unstable wide complex tachyarrhythmia, possibly ventricular tachycardia, terminated with 2 doses of 150 mg IV amiodarone, 100 mg of IV lidocaine, 4 g of IV magnesium sulfate. Patient was transferred to the intensive care unit for closer monitoring. over the past 24 hours, the patient has not had any further cardiac arrhythmias. Patient is currently off amiodarone drip and the patient is currently off lidocaine. The patient is currently on oral amiodarone 400 mg by mouth twice a day. Cardiac rhythm is sinus. The patient is also on Lopressor 25 mg by mouth twice a day. The cardiac catheterization showed nonocclusive disease. No interventions were done. The patient immediately with electrophysiology/EP services and the patient was offered AICD placement. He declined and he wanted to glide and be treated medically. The patient is currently on amiodarone 400 mg by mouth twice a day. He is also on metoprolol 25 mg twice a day. He remains on Lasix 60 mg by mouth twice a day. CAD and the patient is post cath, the patient has triple-vessel disease with patent stents within the LAD and RCA. Severe cardiomyopathy with impaired LV function and ejection fraction of 20-25% Suspected breakthrough seizure, terminated with 1 mg of Ativan IV push. Home antiepileptic medications have been resumed. Patient does have history of seizure disorder. He is currently on a combination of Dilantin and valproic acid. 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 No stridor. No signs of intravascular distress. The patient has adequate airway and the vocal cords are patent based on my bronchoscopic evaluation. Hypokalemia, being replaced per protocol, replaced Hypermagnesemia Dysphagia, status post operative day #6 following PEG tube placement. During the EGD no obvious esophageal strictures or obstructions were noted. History of coronary artery disease, with prior CA and stents Benign essential hypertension Hyperlipidemia History of CVA/TIA Chronic obstructive pulmonary disease, stable. Normally maintained on Trelegy Ellipta inhaler and DuoNeb inhalations on an outpatient basis. Chronic hypoxemic respiratory failure, currently on 3 L/m nasal cannula, which is what he wears at home Obstructive sleep apnea, noncompliant with CPAP Systemic lupus erythematous, lupus nephritis, maintained on CellCept Chronic ongoing tobacco dependence, reportedly smokes up to 1-1/2 packs per day Plan: Discussed the case with ENT. No inpatient workup will be done and this will be deferred to be done later on an outpatient basis. He does have an adequate airway. Keep enteral feeding for nutritional support Cardiac catheterization done, AICD offered by cardiology, the patient declined Current cardiac rhythm is sinus and no further ventricular arrhythmias as been noted and the patient remains on a combination of metoprolol and amiodarone Pulmonary status is stable and the patient remains somewhat between 3 and 4 L of oxygen nasal cannula The patient is currently on oral amiodarone The patient is currently on metoprolol The patient has no seizure activity The patient is covered with antiepileptics The patient is undergoing enteral feeding for insurance support through his PEG tube prednisone at a dose of 10 mg by mouth daily. Continue CellCept. Continue valproic acid 250 mg per PEG tube twice a day and Dilantin I'm going to discuss his case with his primary care physician. The patient can likely be discharged to be followed up by cardiology and ENT on outpatient basis. Time with Patient: Greater than 30
[2023-07-25 09:48] VITALS: BMI 30.2
[2023-07-25] MEDS: METOPROLOL TARTRATE 25 MG TAB PO SCH (10:35)
[2023-07-25] MEDS: AMIODARONE 200 MG TAB PO SCH (10:36)
[2023-07-25] MEDS: ATORVASTATIN 20 MG TAB PO SCH (10:36)
[2023-07-25] MEDS: allopurinoL 100 MG TAB PO SCH (10:36)
[2023-07-25] MEDS: predniSONE 10 MG TAB PO SCH (10:36)
[2023-07-25] MEDS: PREGABALIN 100 MG CAP PO SCH (10:36)
[2023-07-25] MEDS: FAMOTIDINE 20 MG TAB PO SCH (10:36)
[2023-07-25] MEDS: MONTELUKAST 10 MG TAB PO SCH (10:36)
[2023-07-25] MEDS: PARoxetine 20 MG TAB PO SCH (10:36)
[2023-07-25] MEDS: VALPROIC ACID ORAL SOLN 250 MG/5 ML CUP PEG/G-TUBE SCH (10:37)
[2023-07-25] MEDS: PHENYTOIN ORAL SUSP 100 MG/4 ML CUP PO SCH (10:37)
[2023-07-25] MEDS ORDERED: MYCOPHENOLATE MOFETIL 200 MG/ML PEG/G-TUBE SCH (11:00)
[2023-07-25] MEDS: NICOTINE 21MG/24HR PATCH TRANSDERM SCH (11:05)
[2023-07-25] MEDS: LACOSAMIDE 50 MG TABLET PO SCH (11:05)
--- NOTE | 2023-07-25 11:25 | P.DS ---
Providers Date of admission: 07/17/23 14:17 Expected date of discharge: 07/25/23 Attending physician: Damir Teran Consults: 07/19/23 18:04 Consult Physician Urgent Consulting Provider: Supriya Alfaro Consult Reason/Comments: lupas nephritis Do you want consulting provider notified?: Yes 07/20/23 14:11 Consult Physician Routine Consulting Provider: Aren Shipman Consult Reason/Comments: bedside evaluation of patient, abnormal neck CT and dysphagia Do you want consulting provider notified?: Yes 07/20/23 19:32 Consult Physician Stat Consulting Provider: Gerson Chapman Consult Reason/Comments: icu transfer Do you want consulting provider notified?: Yes 07/21/23 01:30 Consult Physician Routine Consulting Provider: Jordy Chapman Consult Reason/Comments: Possible breakthrough seizures Do you want consulting provider notified?: Yes 07/21/23 12:27 Consult Physician Routine Consulting Provider: Alexander Schmitt Consult Reason/Comments: VTACH Do you want consulting provider notified?: Already Contacted 07/24/23 11:00 Consult Physician Urgent Consulting Provider: Adalberto Greer Consult Reason/Comments: Possible malignancy Do you want consulting provider notified?: Yes Primary care physician: Damri Teran Hospital Course: Final Diagnoses: (1) Aspiration into airway Current Visit: Yes Status: Acute Code(s): T17.908A - UNSP FB IN RESP TRACT, PART UNSP CAUSING OTH INJURY, INIT SNOMED Code(s): 192566850 (2) Abnormal computed tomography of soft tissue of neck. 07/24/2023 Status post flexible bronchoscopy reporting abnormal tumor-like growth involving the cord/arytenoids, functional mobile cords, compromised airway and the supraglottic area secondary to the above. Supraglottic trachea patent. 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 ENT reconsulted. Current Visit: Yes Status: Acute Code(s): R93.89 - ABNORMAL FINDINGS ON DX IMAGING OF OTH BODY STRUCTURES SNOMED Code(s): 175752750 (3) Coronary artery disease Current Visit: Yes Status: Acute Code(s): I25.10 - ATHSCL HEART DISEASE OF [place] CORONARY ARTERY W/O ANG PCTRS SNOMED Code(s): 91798964 (4) Dysphagia Current Visit: Yes Status: Acute Code(s): R13.10 - DYSPHAGIA, UNSPECIFIED SNOMED Code(s): 70645775 (5) History of cervical spinal surgery Current Visit: Yes Status: Acute Code(s): Z98.890 - OTHER SPECIFIED POSTPROCEDURAL STATES SNOMED Code(s): 429197595 (6) COPD (chronic obstructive pulmonary disease) Current Visit: No Status: Acute Code(s): J44.9 - CHRONIC OBSTRUCTIVE PULMONARY DISEASE, UNSPECIFIED SNOMED Code(s): 31610710 (7) Chronic kidney disease Current Visit: No Status: Acute Code(s): N18.9 - CHRONIC KIDNEY DISEASE, UNSPECIFIED SNOMED Code(s): 711491805 (8) Chronic systolic (congestive) heart failure Current Visit: No Status: Acute Code(s): I50.22 - CHRONIC SYSTOLIC (CONGESTIVE) HEART FAILURE SNOMED Code(s): 072867797 (9) HTN (hypertension) Current Visit: No Status: Acute Code(s): I10 - ESSENTIAL (PRIMARY) HYPERTENSION SNOMED Code(s): 78163817 (10) History of seizure disorder Current Visit: No Status: Acute Code(s): Z86.69 - PERSONAL HISTORY OF DIS OF THE NERVOUS SYS AND SENSE ORGANS SNOMED Code(s): 350185075 (11) Hypoxemia Current Visit: No Status: Acute Code(s): R09.02 - HYPOXEMIA SNOMED Code(s): 548838465 (12) Ischemic heart disease Current Visit: No Status: Acute Code(s): I25.9 - CHRONIC ISCHEMIC HEART DISEASE, UNSPECIFIED SNOMED Code(s): 746485063 (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 Current Visit: No Status: Acute Code(s): M32.14 - GLOMERULAR DISEASE IN SYSTEMIC LUPUS ERYTHEMATOSUS SNOMED Code(s): 30224114 (14) Nicotine addiction Current Visit: No Status: Acute Code(s): F17.200 - NICOTINE DEPENDENCE, UNSP ECIFIED, UNCOMPLICATED SNOMED Code(s): 35423052 (15) Type 2 diabetes mellitus without complications Current Visit: No Status: Acute Code(s): E11.9 - TYPE 2 DIABETES MELLITUS WITHOUT COMPLICATIONS SNOMED Code(s): 669397111 (16) S/P percutaneous endoscopic gastrostomy (PEG) tube placement Current Visit: Yes Status: Acute Code(s): Z93.1 - GASTROSTOMY STATUS SNOMED Code(s): 867745469 (17) morbid obesity, BMI 30 (18) suspected breakthrough seizures reported possibly related to arrhythmia/V. tach, abnormal electrolytes (19) Sustained ventricular tachycardia, status post cardiac arrest with return of spontaneous circulation. 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 AICD pending. (20) cardiomyopathy, EF 20-25% Hospital course: This is a 63-year-old male well known to me. He has chronic respiratory failure. He continues to smoke. He has a history of lupus and Freytes. Over the past several months he has complaints of coughing hoarseness in trouble swallowing. We have been unable to schedule him with an ear nose and throat doctor. A barium swallow test was ordered for evaluation, and he was found to be aspirating. He modified barium swallow testWas ordered and they were unable to not have him aspirate even with honey thick liquids. He came in through the emergency room and is now admitted for peg tube placement so that he may remain NPO as to not continue to develop pneumonia. At this time he has no complaints and is waiting his surgery. 07/19/2023: Patient is postop day 1 PEG tube placement for severe aspiration. EGD failed to show any significant strictures or abnormalities. ENT is unavailable to me bedside procedures at this time. General surgery and signed off as gastric urology perform the PEG tube. Patient's home medications will be restarted. Dietary will recommend feeding for him. He denies any chest pains pressures at this time. He does have ongoing chronic low back pain. Has been receiving Dilaudid for this. He is a known heavy smoker and has a nicotine patch ordered. He has oxygen-dependent COPD along with lupus nephritis and multiple other comorbidities. Currently the patient denies any chest pains or pressures. Just the shortness breath with exertion. 07/20/2023: Patient is reevaluated today. He is postop day #2 of PEG tube placement. He has tube feedings running at this time. Jevity 1.5 at 20 mL an hour with a goal of increasing it by 10 ML's every 8 hours to a goal of 39 miles per hour. 30 mL flush every 4 hours. At this time all his medications and converted to PEG tube feedings with the exception of her CellCept. This may not be crushed. Dr. Shannon and consult it since this was originally for post nephritis. Patient denies any chest pains pressures, as his chronic shortness of breath. Denies any nausea or nausea or vomiting. 07/21/2023 transferred to ICU last night after development of a wide complex tachycardia, appearing like V. tach, accompanied by hypotension, change in mental status and two - three appearing seizure-like activities. Brain CT reported no acute hemorrhage, hydrocephalus or mass effect. Lactic acid last 2.6 around the time of the event, decreased to 1 approximately 4 hours post. Received amiodarone and lidocaine and magnesium, returned into normal sinus rhythm. Magnesium level II.1 prior to the event, level of 6 last night(received magnesium during code) and early this morning decreased to 3. Received Ativan with no further seizure activity. Currently sinus rhythm, fluctuating with some A. fib, maintained on both amiodarone and lidocaine drips. Denies chest pain, palpitations or shortness of breath., Maintaining O2 sats in the 90s on 3 L nasal cannula. Evaluated by ENT with recommendations noted and appreciated, including a suspension microlaryngoscopy under general anesthesia to evaluate his lower larynx and upper airway with the concern of possible malignancy. Troponins 0.014, 0.715, 0.989. Evaluated by cardiology, recommending cardiac catheterization tomorrow. Renal function stable .afebrile, normal WBC .hemoglobin 12.8, platelets 137. Blood sugars controlled .Neurology consult in place Recommendations pending. Patient appears indecisive. 07/22/2023 lidocaine drip discontinued, amiodarone drip transitioned to oral. Remains in sinus rhythm. No further seizure activity. Dilantin level subtherapeutic, 4. Initially scheduled for cardiac catheterization today, rescheduled for tomorrow. Denies any chest pain palpitations or shortness of breath. Tolerating tube feeds at goal with minimal to no residuals. 07/23/2023 status post cardiac catheterization, reporting no obstructive disease, mild to moderate disease, no intervention. Cardiology/retail client manager recommending AICD placement for sustained ventricular tachycardia, cardiomyopathy, this admission. 07/24/2023 patient declining AICD and LifeVest this morning. Telemetry sinus rhythm with PACs .maintaining O2 sats in the mid to low 90s on 3 L nasal can nula. Chest x-ray reporting similar right midlung airspace opacity is given positioning, new small bilateral pleural effusions. He underwent flexible bronchoscopy inspection of the upper airway trachea this morning- integration architect expressing concern over a laryngeal tumor causing anatomic obstruction of the supraglottic area, suspicious for malignancy, ENT reconsulted. Tolerating tube feeds at goal with minimal to no residual. Bicarb 39, BUN 11, creatinine 0.62, nephrology following, Lasix decreased. Patient declined AICD and LifeVest . Antiarrhythmics as per cardiology. Denies chest pain, palpitations or shortness of breath . Maintaining O2 sats in the low 90s on 3 L nasal cannula, mid 90s on 5 L nasal cannula. Tolerating tube feeds at goal with minimal to no residuals .ENT recommending further evaluation by ENT/ENT oncologist regarding concern of laryngeal tumor causing anatomic obstruction of the supraglottic area, to be arranged outpatient and clinic with PCP. Patient has been cleared by discharge by pulmonary, cardiology, nephrology, neurology. Patient will be discharged home in stable condition with guarded prognosis. Lasix stopped on 07/24/2023-further recommendations per cardiology prior to discharge. - Exam General: Alert and oriented 3, sitting up in bed, no acute distress. Neck: supple,no JVD. Cardiovascular: S1S2 is normal,regular rate and rhythm. Respiratory: Unlabored, Lungs are coarse but equal bilaterally, essentially clear. No stridor. Gastrointestinal: Soft, non-distended, non-tender abdomen , no guarding,+BS. PEG tube present. EXTREMITIES: no pedal edema, no calf tenderness or swelling. No clubbing or cyanosis. Neurological: CN II-XII intact, no focal deficits Skin: warm and dry, no rashes noted. The impression and plan of care has been dictated as directed. : I performed a history and examination of this patient, discussed the same with the dictator. I agree with the dictator's note ,documented as a scribe. Any additional findings or plans will be noted. Patient Condition at Discharge: Stable Plan - Discharge Summary New Discharge Prescriptions: New Amiodarone [Cordarone] 400 mg PO BID #60 tab Phenytoin Oral Susp [Dilantin Oral Susp] 200 mg PO BID #500 ml Nicotine 21Mg/24Hr Patch [Habitrol] 1 patch TRANSDERM DAILY patch Lacosamide [Vimpat] 50 mg PO BID 3 Days #6 tab Dapagliflozin Propanediol [Farxiga] 5 mg PO DAILY #30 tab mycophenolate mofetiL [Cellcept] 500 mg PEG/G-TUBE DAILY #160 ml Continue PARoxetine [Paxil] 20 mg PO DAILY rOPINIRole HCL [Requip] 1 mg PO BID allopurinoL [Zyloprim] 100 mg PO DAILY Montelukast [Singulair] 10 mg PO DAILY Nitroglycerin Sl Tabs [Nitrostat] 0.4 mg SUBLINGUAL Q5M PRN PRN Reason: Chest Pain Famotidine 20 mg PO DAILY modafiniL [Provigil] 200 mg PO DAILY #3 tab Amitriptyline HCl [Elavil] 25 mg PO HS Metoprolol Tartrate [Lopressor] 25 mg PO BID Divalproex Sodium 250 mg PO BID Atorvastatin [Lipitor] 20 mg PO DAILY oxyCODONE-APAP 10-325MG [Percocet 10-325 mg] 1 tab PO Q6H PRN PRN Reason: Pain Fluticasone/Umeclidin/Vilanter [Trelegy Ellipta 100-62.5-25] 1 puff INHALATION RT-DAILY Metformin Er 750mg 1,500 mg PO W/SUPPER PRN PRN Reason: HIGH BLOOD SUGAR Albuterol Nebulized [Ventolin Nebulized] 2.5 mg INHALATION RT-Q6H PRN PRN Reason: Shortness Of Breath Ipratropium-Albuterol Nebulize [Duoneb 0.5 mg-3 mg/3 ml Soln] 3 ml INHALATION RT-QID PRN PRN Reason: Shortness Of Breath Pregabalin [Lyrica] 200 mg PO TID #9 cap Albuterol Inhaler [Ventolin Hfa Inhaler] 1 - 2 puff INHALATION RT-Q6H PRN PRN Reason: Shortness Of Breath Docusate [Colace] 100 mg PO BID PRN PRN Reason: Constipation Mv-Min/Folic/K1/Lycopen/Lutein [Centrum Silver Men Tablet] 1 tab PO DAILY predniSONE 10 mg PO DAILY Discontinued Phenytoin Sodium Extended [Dilantin] 200 mg PO BID mycophenolate mofetiL [Cellcept] 500 mg PO DAILY Sucralfate [Carafate] 1 gm PO AC-BID Furosemide [Lasix] 60 mg PO BID Discharge Medication List PARoxetine [Paxil] 20 mg PO DAILY 05/21/16 [History] rOPINIRole HCL [Requip] 1 mg PO BID 08/30/16 [History] Montelukast [Singulair] 10 mg PO DAILY 02/04/18 [History] Nitroglycerin Sl Tabs [Nitrostat] 0.4 mg SUBLINGUAL Q5M PRN 02/04/18 [History] allopurinoL [Zyloprim] 100 mg PO DAILY 02/04/18 [History] Famotidine 20 mg PO DAILY 05/12/20 [History] Pregabalin [Lyrica] 200 mg PO TID #9 cap 11/18/22 [Rx] modafiniL [Provigil] 200 mg PO DAILY #3 tab 11/18/22 [Rx] Amitriptyline HCl [Elavil] 25 mg PO HS 02/19/23 [History] Atorvastatin [Lipitor] 20 mg PO DAILY 02/19/23 [History] Divalproex Sodium 250 mg PO BID 02/19/23 [History] Fluticasone/Umeclidin/Vilanter [Trelegy Ellipta 100-62.5-25] 1 puff INHALATION RT-DAILY 02/19/23 [History] Metoprolol Tartrate [Lopressor] 25 mg PO BID 02/19/23 [History] oxyCODONE-APAP 10-325MG [Percocet 10-325 mg] 1 tab PO Q6H PRN 02/19/23 [History] Albuterol Inhaler [Ventolin Hfa Inhaler] 1 - 2 puff INHALATION RT-Q6H PRN 07/17/23 [History] Albuterol Nebulized [Ventolin Nebulized] 2.5 mg INHALATION RT-Q6H PRN 07/17/23 [History] Docusate [Colace] 100 mg PO BID PRN 07/17/23 [History] Ipratropium-Albuterol Nebulize [Duoneb 0.5 mg-3 mg/3 ml Soln] 3 ml INHALATION RT-QID PRN 07/17/23 [History] Metformin Er 750mg 1,500 mg PO W/SUPPER PRN 07/17/23 [History] Mv-Min/Folic/K1/Lycopen/Lutein [Centrum Silver Men Tablet] 1 tab PO DAILY 07/17/23 [History] predniSONE 10 mg PO DAILY 07/17/23 [History] Amiodarone [Cordarone] 400 mg PO BID #60 tab 07/23/23 [Rx] Lacosamide [Vimpat] 50 mg PO BID 3 Days #6 tab 07/23/23 [Rx] Nicotine 21Mg/24Hr Patch [Habitrol] 1 patch TRANSDERM DAILY patch 07/23/23 [Rx] Phenytoin Oral Susp [Dilantin Oral Susp] 200 mg PO BID #500 ml 07/23/23 [Rx] mycophenolate mofetiL [Cellcept] 500 mg PEG/G-TUBE DAILY #160 ml 07/24/23 [Rx] Dapagliflozin Propanediol [Farxiga] 5 mg PO DAILY #30 tab 07/25/23 [Rx] Follow up Appointment(s)/Referral(s): Supriya Alfaro MD [STAFF PHYSICIAN] - 1 Week [facility], [NON-STAFF] - 1 Week [facility], [REFERRING] - 1 Week Damir Teran MD [Primary Care Provider] - 3 Days Juan Ya MD [STAFF PHYSICIAN] - 07/31/23 10:15 am () Activity/Diet/Wound Care/Special Instructions: *All meds via PEG tube* Patient will require further ENT/ENT Oncologist workup under general anesthesia, can be arranged outpatient in clinic with PCP. avoid driving for 6 month seizure-free, avoid heights, avoid swimming unassisted or using heavy machinery. Discharge Disposition: HOME WITH HOME HEALTH SERVICES
[2023-07-25 12:12] LABS: Glucose,Whole Blood 105 mg/dL (70-110)
[2023-07-25 13:18] VITALS: TEMP 98
[2023-07-25 15:23] VITALS: BP 117/62; PULSE 55; RESP 12
--- NOTE | 2023-07-25 15:54 | P.PN ---
Subjective History of present illness: Cardiology was paged on urgent bases at patient was noticed to be in Tachycardic rhythm and seziure which was not getting controlled. A team could not determine what was the rhythm and was not responding to adenosine. Patient was no code with DNI and no compressions and shocking orders. On bedside evaluation patient was noticed to be in Vtac HR 200. Patient got 150mg amiodarone x 2 which broke the Vtach. He was intermittently going in Vtach for which we gave 4 gm Mgso4 and 100 mg lidocaine, After this patient stabilized. During the code, patient was loosing pulse intermittently but being no chest compressions order, no chest compressions were performed. Patient was somnolent but arousable after ROSC ECG after ROSC showed NSR with lateral ST depressions and frequent PVCs, monomorphic. Labs from yesterday showed Hb 15, normal staff mechanical engineer 0.7, and WNL electrolytes Patient was admitted on 07/17/23. 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 07/21 Patient seen and examined. Denies any chest pain or pressure. Troponins mildly elevated. No further VT. No seizure like activity. Admits has had a number of cardiac arrests in the past. Has been recommended to undergo AICD placement in the past. Echo shows EF decreased to 20-25%. Wanting to go home and long discussion regarding need to stay. 07/22 Patient seen and examined. Attempted scheduling of heart catheterization today however appears due to logistics likely will not be done until tomorrow. He was transitioned from IV amiodarone to oral amiodarone. He denies any chest pain or pressure. He is fixated that he can prevent similar episodes by taking nitroglycerin at home. 07/23 Patient seen and examined. Patient underwent diagnostic heart catheterization which showed no obstructive disease, mild to moderate disease. He has had intermittent bradycardia with heart rates in the mid 50s on the metoprolol as well as amiodarone. Discussed case with electrophysiology recommending AICD placement for sustained ventricular tachycardia, cardiomyopathy. 07/24 Patient seen and examined. Patient denies any chest pain or pressure. Pulmonology concern with closure of his glottis and recommending a scope. No SOB. No VT. EP saw patient and patient adamant he does not want rescusitation. Concern with brother and dad having "heart exploding" after defib. Patient had long discussion with electrophysiology and does not want to proceed with AICD. 07/25 Patient seen and examined. He denies any chest pain or pressure. Anxious to go home. PHYSICAL EXAMINATION Vital signs reviewed. Lungs: Poor inspiratory effort, mild crackles audible. Heart: Regular rate and rhythm, S1-S2, no S3, no murmur or rub. Abdomen: Soft nontender, Extremities: 1+ peripheral edema Neuro: Patient is alert ASSESSMENT Sustained ventricular tachycardia Cardiac arrest status post return of spontaneous circulation DNR/DNI Lupus Nephritis Aspiration COPD Smoker CAD with history of prior PCI NSTEMI Cardiomyopathy EF 20-25% PLAN Continue current regimen. Appears stable for discharge home. High risk of sudd en cardiac with patient refusing AICD however appears to understand risks and benefits. Follow-up outpatient. Continue with amiodarone and decreased dose down to 200 mg twice a day after one week and then 200 mg daily after 1 week. Objective - Vital Signs Vital signs: Vital Signs Temp 98.0 F 07/25/23 12:00 Pulse 55 L 07/25/23 14:00 Resp 12 07/25/23 15:00 BP 117/62 07/25/23 15:00 Pulse Ox 91 L 07/25/23 15:00 FiO2 Intake & Output 07/24/23 07/25/23 07/25/23 18:59 06:59 18:59 Intake Total 725 300 520 Output Total 200 320 450 Balance 525 -20 70 Weight 92.8 kg 92.8 kg Intake: IV 285 30 20 Invasive Line 5 30 30 20 Invasive Line 7 30 Sodium Chloride 0.9% 1, 225 000 ml @ 50 mls/hr IV . Q20H [facility] Rx#:[id number] Tube Feeding 80 180 470 Other 360 90 30 Output: Urine 200 320 450 Stool 0 0 Other: Voiding Method Urinal Urinal Urinal # Voids 1 1 # Bowel Movements 0 0 1 - Labs CBC & Chem 7: 07/25/23 05:30 07/25/23 05:30 Labs: Abnormal Lab Results - Last 24 Hours (Table) 07/24/23 07/25/23 07/25/23 Range/Units 18:22 05:30 05:30 RBC 4.13 L (4.30-5.90) m/uL Plt Count 140 L (150-450) k/uL Carbon Dioxide 35 H (22-30) mmol/L Creatinine 0.54 L (0.66-1.25) mg/dL Glucose 124 H (74-99) mg/dL POC Glucose (mg/dL) 122 H (70-110) mg/dL 07/25/23 Range/Units 05:54 RBC (4.30-5.90) m/uL Plt Count (150-450) k/uL Carbon Dioxide (22-30) mmol/L Creatinine (0.66-1.25) mg/dL Glucose (74-99) mg/dL POC Glucose (mg/dL) 131 H (70-110) mg/dL
== END 2023-07-25 16:30 | disposition home health service (06) | DRG 110 ==
LOC: EC 12:46 → 6NMEDSUR 14:16 → OBSVTOIN 14:17 → 6NMEDSUR 16:06 → 2SICU 07-20 19:58
PROVIDERS: ADMIT Family Medicine; ATTEND Family Medicine
PROC: 0DH63UZ Insertion of Feeding Device into Stomach, Percutaneous Approach (ICD-10-PCS; 2023-07-18)
PROC: 3E0G76Z Introduction of Nutritional Substance into Upper GI, Via Natural or Artificial Opening (ICD-10-PCS; 2023-07-18)
PROC: 4A023N7 Measurement of Cardiac Sampling and Pressure, Left Heart, Percutaneous Approach (ICD-10-PCS; 2023-07-23)
PROC: B2111ZZ Fluoroscopy of Multiple Coronary Arteries using Low Osmolar Contrast (ICD-10-PCS; 2023-07-23)
PROC: B41F1ZZ Fluoroscopy of Right Lower Extremity Arteries using Low Osmolar Contrast (ICD-10-PCS; 2023-07-23)
PROC: 0BJ08ZZ Inspection of Tracheobronchial Tree, Via Natural or Artificial Opening Endoscopic (ICD-10-PCS; principal; 2023-07-24)
DX: C32.9 Malignant neoplasm of larynx, unspecified (principal); K91.2 Postsurgical malabsorption, not elsewhere classified; E11.22 Type 2 diabetes mellitus with diabetic chronic kidney disease; E66.01 Morbid (severe) obesity due to excess calories; E78.00 Pure hypercholesterolemia, unspecified; E83.41 Hypermagnesemia; E83.42 Hypomagnesemia; E87.6 Hypokalemia; F17.210 Nicotine dependence, cigarettes, uncomplicated; F32.A Depression, unspecified; F41.9 Anxiety disorder, unspecified; G25.0 Essential tremor; G40.909 Epilepsy, unspecified, not intractable, without status epilepticus; G47.33 Obstructive sleep apnea (adult) (pediatric); G89.29 Other chronic pain; G93.40 Encephalopathy, unspecified; I13.0 Hypertensive heart and chronic kidney disease with heart failure and stage 1 through stage 4 chronic kidney disease, or unspecified chronic kidney disease; I21.4 Non-ST elevation (NSTEMI) myocardial infarction; I25.10 Atherosclerotic heart disease of native coronary artery without angina pectoris; I42.9 Cardiomyopathy, unspecified; I46.9 Cardiac arrest, cause unspecified; I47.20 Ventricular tachycardia, unspecified; I48.91 Unspecified atrial fibrillation; I50.22 Chronic systolic (congestive) heart failure; I69.351 Hemiplegia and hemiparesis following cerebral infarction affecting right dominant side; J44.9 Chronic obstructive pulmonary disease, unspecified; J96.11 Chronic respiratory failure with hypoxia; J98.11 Atelectasis; K21.9 Gastro-esophageal reflux disease without esophagitis; K29.50 Unspecified chronic gastritis without bleeding; K29.60 Other gastritis without bleeding; K44.9 Diaphragmatic hernia without obstruction or gangrene; K62.1 Rectal polyp; M14.80 Arthropathies in other specified diseases classified elsewhere, unspecified site; M32.14 Glomerular disease in systemic lupus erythematosus; N18.1 Chronic kidney disease, stage 1; J38.00 Paralysis of vocal cords and larynx, unspecified; R13.12 Dysphagia, oropharyngeal phase; Z66 Do not resuscitate; K63.5 Polyp of colon; Z95.5 Presence of coronary angioplasty implant and graft; I25.2 Old myocardial infarction; Z68.30 Body mass index [BMI] 30.0-30.9, adult; Z79.02 Long term (current) use of antithrombotics/antiplatelets; Z79.624 Long term (current) use of inhibitors of nucleotide synthesis; Z79.84 Long term (current) use of oral hypoglycemic drugs; Z79.899 Other long term (current) drug therapy; Z80.1 Family history of malignant neoplasm of trachea, bronchus and lung; Z82.49 Family history of ischemic heart disease and other diseases of the circulatory system; Z91.199 Patient's noncompliance with other medical treatment and regimen due to unspecified reason; Z95.810 Presence of automatic (implantable) cardiac defibrillator; Z98.1 Arthrodesis status; Z99.81 Dependence on supplemental oxygen
CPT/HCPCS: 36415; 36600; 43246; 43762; 70450; 70491; 71046; 80048; 80053; 80185; 81003; 82805; 83036; 83605; 83735; 84100; 84132; 84146; 84484; 85025; 85610; 85730; 87070; 87077; 87186; 87205; 93005; 93306; 93458; 94640; 94760; 95816; 96374; 96375; 99285

== ENCOUNTER → 2023-07-17 | Outpatient (CLI) | payer OTHER ==
--- NOTE | 2023-07-17 12:25 | FL ---
Modified barium swallow. HISTORY: Dysphagia. Modified barium swallow was performed with the department of speech pathology. The patient was prese nted with various consistencies of barium. The patient was presented with a spoonful of honey thick barium. Aspiration was noted immediately. Ex amination was discontinued. Full report is to follow from the department of speech pathology. Impression: Aspiration
== END | disposition home or self-care (01) ==
LOC: RADFLMAIN 11:08
PROVIDERS: ATTEND Family Medicine
DX: R13.10 Dysphagia, unspecified (principal)
CPT/HCPCS: 74230

== ENCOUNTER 2023-07-25 22:32 | Emergency (ER) | payer OTHER ==
[2023-07-25 23:41] VITALS: TEMP 98
--- NOTE | 2023-07-26 00:46 | ED ---
General Adult HPI - General Chief complaint: Abdominal Pain Stated complaint: Fall, Left Hand Injury Time Seen by Provider: 07/26/23 00:32 Source: patient, family, RN notes reviewed, old records reviewed Mode of arrival: wheelchair Limitations: no limitations - History of Present Illness Initial comments: 63-year-old male with left hand injury. Patient states he fell at home, states he tripped falling onto his abdomen. He put his left hand over his PEG tube to protect the site. Landed onto his left hand. He has pain and swelling at the base of the second and third digits left hand. No head or neck trauma. No other complaints. - Related Data Home Medications Medication Instructions Recorded Confirmed PARoxetine [Paxil] 20 mg PO DAILY 05/21/16 07/17/23 rOPINIRole HCL [Requip] 1 mg PO BID 08/30/16 07/17/23 Montelukast [Singulair] 10 mg PO DAILY 02/04/18 07/17/23 Nitroglycerin Sl Tabs [Nitrostat] 0.4 mg SUBLINGUAL Q5M PRN 02/04/18 07/17/23 allopurinoL [Zyloprim] 100 mg PO DAILY 02/04/18 07/17/23 Famotidine 20 mg PO DAILY 05/12/20 07/17/23 Amitriptyline HCl [Elavil] 25 mg PO HS 02/19/23 07/17/23 Atorvastatin [Lipitor] 20 mg PO DAILY 02/19/23 07/17/23 Divalproex Sodium 250 mg PO BID 02/19/23 07/17/23 Fluticasone/Umeclidin/Vilanter 1 puff INHALATION RT-DAILY 02/19/23 07/17/23 [Trelegy Ellipta 100-62.5-25] Metoprolol Tartrate [Lopressor] 25 mg PO BID 02/19/23 07/17/23 oxyCODONE-APAP 10-325MG [Percocet 1 tab PO Q6H PRN 02/19/23 07/17/23 10-325 mg] Albuterol Inhaler [Ventolin Hfa 1 - 2 puff INHALATION RT-Q6H PRN 07/17/23 07/17/23 Inhaler] Albuterol Nebulized [Ventolin 2.5 mg INHALATION RT-Q6H PRN 07/17/23 07/17/23 Nebulized] Docusate [Colace] 100 mg PO BID PRN 07/17/23 07/17/23 Ipratropium-Albuterol Nebulize 3 ml INHALATION RT-QID PRN 07/17/23 07/17/23 [Duoneb 0.5 mg-3 mg/3 ml Soln] Metformin Er 750mg 1,500 mg PO W/SUPPER PRN 07/17/23 07/17/23 Mv-Min/Folic/K1/Lycopen/Lutein 1 tab PO DAILY 07/17/23 07/17/23 [Centrum Silver Men Tablet] predniSONE 10 mg PO DAILY 07/17/23 07/17/23 Previous Rx's Medication Instructions Recorded Pregabalin [Lyrica] 200 mg PO TID #9 cap 11/18/22 modafiniL [Provigil] 200 mg PO DAILY #3 tab 11/18/22 Amiodarone [Cordarone] 400 mg PO BID #60 tab 07/23/23 Lacosamide [Vimpat] 50 mg PO BID 3 Days #6 tab 07/23/23 Nicotine 21Mg/24Hr Patch [Habitrol] 1 patch TRANSDERM DAILY patch 07/23/23 Phenytoin Oral Susp [Dilantin Oral 200 mg PO BID #500 ml 07/23/23 Susp] mycophenolate mofetiL [Cellcept] 500 mg PEG/G-TUBE DAILY #160 ml 07/24/23 Dapagliflozin Propanediol [Farxiga] 5 mg PO DAILY #30 tab 07/25/23 Furosemide [Lasix] 60 mg PO DAILY #90 tab 07/25/23 Allergies Allergy/AdvReac Type Severity Reaction Status Date / Time Penicillins Allergy Severe Swelling Verified 07/25/23 23:24 ibuprofen [From Motrin] Allergy Rash/Hives Verified 07/25/23 23:24 Iodinated Contrast Media Allergy Swelling Verified 07/25/23 23:24 [Iodinated Contrast- Oral and IV Dye] iodine Allergy Itching, Verified 07/25/23 23:24 Hives phenobarbital AdvReac Drowsiness Verified 07/25/23 23:24 Review of Systems ROS Statement: Those systems with pertinent positive or pertinent negative responses have been documented in the HPI. ROS Other: All systems not noted in ROS Statement are negative. 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, lupus, continuous oxygen use at 3L, no cpap used, kidney failure with hemodilaysis in the past, 3 KS's, hypoglycemia Last Myocardial Infarction Date:: 2015 History of Any Multi-Drug Resistant Organisms: None Reported Past Surgical History: Cholecystectomy, Heart Catheterization, Heart Catheterization With Stent, Tonsillectomy Additional Past Surgical History / Comment(s): STATES 7 cardiac stents, neck surgery, upper and lower scopes, spine surgery, pain procedures, Past Anesthesia/Blood Transfusion Reactions: No Reported Reaction Additional Past Anesthesia/Blood Transfusion Reaction / Comment(s): blood transfusion-no reaction, unknown family hx per spouse Date of Last Stent Placement:: 2021 Past Psychological History: Anxiety, Depression Smoking Status: Current every day smoker Past Alcohol Use History: None Reported Past Drug Use History: Marijuana - Past Family History Father Family Medical History: Myocardial Infarction (KS) Additional Family Medical History / Comment(s): Father had a KS at the age of 56yrs. Mother Family Medical History: Asthma, Cancer, COPD Additional Family Medical History / Comment(s): Mother had lung cancer. General Exam Limitations: no limitations General appearance: alert, in no apparent distress Head exam: Present: atraumatic, normocephalic Eye exam: Present: normal appearance, PERRL ENT exam: Present: normal exam Neck exam: Present: normal inspection. Absent: tenderness Respiratory exam: Present: normal lung sounds bilaterally. Absent: respiratory distress Cardiovascular Exam: Present: regular rate, normal rhythm GI/Abdominal exam: Present: soft, other (PEG tube site appears normal, no hemorrhage). Absent: distended, tenderness Extremities exam: Present: other (Ecchymosis, soft tissue swelling of the dorsum of the hand left-sided) Neurological exam: Present: alert, oriented X3, CN II-XII intact. Absent: motor sensory deficit Psychiatric exam: Present: normal affect, normal mood Skin exam: Present: warm, dry, intact Course Vital Signs 07/25/23 23:19 Temperature 98 F Pulse Rate 83 Respiratory 18 Rate Blood Pressure 139/92 O2 Sat by Pulse 95 Oximetry Medical Decision Making - Medical Decision Making Was pt. sent in by a medical professional or institution (, [employer], LICENSED LAND SURVEYOR, urgent care, hospital, or retirement...) When possible be specific @ -No Did you speak to anyone other than the patient for history (EMS, parent, family, police, friend...)? What history was obtained from this source @ -No Did you review nursing and triage notes (agree or disagree)? Why? @ -I reviewed and agree with nursing and triage notes Were old charts reviewed (outside hosp., previous admission, EMS record, old EKG, old radiological studies, urgent care reports/EKG's, retirement records)? Report findings @ -No old charts were reviewed Differential Diagnosis (chest pain, altered mental status, abdominal pain women, abdominal pain men, vaginal bleeding, weakness, fever, dyspnea, syncope, headache, dizziness, GI bleed, back pain, seizure, CVA, palpatations, mental health, musculoskeletal)? @ -[Differential Musculoskeletal Muscular strain, contusion, ligament sprain, fracture, arthritis, septic arthritis, bursitis, cellulitis, muscle spasm, nerve compression, DVT, arterial occlusion, herpes zoster, electrolyte abnormality, tumor.... This is not meant to be in all inclusive list EKG interpreted by me (3pts min.). @ -As above X-rays interpreted by me (1pt min.). @ -X-ray left hand negative for displaced fracture CT interpreted by me (1pt min.). @ -None done U/S interpreted by me (1pt. min.). @ -None done What testing was considered but not performed or refused? (CT, X-rays, U/S, labs)? Why? @ -None What meds were considered but not given or refused? Why? @ -None Did you discuss the management of the patient with other professionals (professionals i.e. [employer] [facility], LICENSED LAND SURVEYOR, lab, RT, psych nurse, social media coordinator, correspondence dictator, teacher, canine enforcement officer, bilingual case manager)? Give summary @ -No Was smoking cessation discussed for >3mins.? @ -No Was critical care preformed (if so, how long)? @ -No Were there social determinants of health that impacted care today? How? (Homelessness, low income, unemployed, alcoholism, drug addiction, transportation, low edu. Level, literacy, decrease access to med. care, care home, rehab)? @ -No Was there de-escalation of care discussed even if they declined (Discuss DNR or withdrawal of care, Hospice)? DNR status @ -No What co-morbidities impacted this encounter? (DM, HTN, Smoking, COPD, CAD, Cancer, CVA, ARF, Chemo, Hep., AIDS, mental health diagnosis, sleep apnea, morbid obesity)? @ -[PEG tube placement, left hand injury Was patient admitted / discharged? Hospital course, mention meds given and route, prescriptions, significant lab abnormalities, going to OR and other pertinent info. @ 63-year-old male with triple fall, left hand injury Undiagnosed new problem with uncertain prognosis? @ -No Drug Therapy requiring intensive monitoring for toxicity (Heparin, Nitro, Insulin, Cardizem)? @ -No Were any procedures done? @ -No Diagnosis/symptom? @ -Hand contusion Acute, or Chronic, or Acute on Chronic? @ -acute Uncomplicated (without systemic symptoms) or Complicated (systemic symptoms)? @ -default Side effects of treatment? @ -No Exacerbation, Progression, or Severe Exacerbation? @ -No Poses a threat to life or bodily function? How? (Chest pain, [place], [place], pneumonia, PE, COPD, DKA, ARF, appy, cholecystitis, CVA, Diverticulitis, Homicidal, Suicidal, threat to staff... and all critical care pts) @ -No Disposition Clinical Impression: Hand contusion Disposition: HOME SELF-CARE Condition: Fair Instructions (If sedation given, give patient instructions): Hematoma (ED), Contusion in Adults (ED) Is patient prescribed a controlled substance at d/c from ED?: No Referrals: Damir Teran MD [Primary Care Provider] - 1-2 days Time of Disposition: 01:00
[2023-07-26 01:48] VITALS: BP 168/89; PULSE 78; RESP 19
--- NOTE | 2023-07-26 02:52 | XR ---
EXAM: XR Left Hand Complete, 3 or More Views CLINICAL HISTORY: ITS.REASON XR Reason: fall TECHNIQUE: Frontal, lateral and oblique views of the left hand. COMPARISON: No relevant prior studies available. FINDINGS: Bones/joints: No acute fracture. No dislocation. Severe [facility] joint osteoarthrosis. Soft tissues: Unremarkable. No radiopaque foreign body. IMPRESSION: No acute osseous abnormalities.
== END 2023-07-26 01:28 | disposition home or self-care (01) ==
LOC: EC 22:32
DX: S60.222A Contusion of left hand, initial encounter (principal); E78.5 Hyperlipidemia, unspecified; F32.A Depression, unspecified; F41.9 Anxiety disorder, unspecified; G47.30 Sleep apnea, unspecified; I11.0 Hypertensive heart disease with heart failure; I25.10 Atherosclerotic heart disease of native coronary artery without angina pectoris; I25.2 Old myocardial infarction; I50.9 Heart failure, unspecified; M19.90 Unspecified osteoarthritis, unspecified site; F17.200 Nicotine dependence, unspecified, uncomplicated; F12.90 Cannabis use, unspecified, uncomplicated; Z79.52 Long term (current) use of systemic steroids; Z79.84 Long term (current) use of oral hypoglycemic drugs; Z79.899 Other long term (current) drug therapy; Z88.0 Allergy status to penicillin; Z88.6 Allergy status to analgesic agent; Z88.8 Allergy status to other drugs, medicaments and biological substances; Z90.49 Acquired absence of other specified parts of digestive tract; Z95.5 Presence of coronary angioplasty implant and graft; W01.0XXA Fall on same level from slipping, tripping and stumbling without subsequent striking against object, initial encounter; Y92.009 Unspecified place in unspecified non-institutional (private) residence as the place of occurrence of the external cause
CPT/HCPCS: 99284